=== PATIENT | male | born 1945 | race Caucasian/White ===

== ENCOUNTER 2016-11-07 08:28 | Observation (INO) | payer OTHER ==
[~2016-11-07] VITALS: Ht 188 cm; Wt 97.1 kg
[2016-11-07] VITALS (9 sets, daily range): BP systolic 160–203; BP diastolic 87–114; PULSE 89–108; RESP 15–19; O2SAT 94–99
[~2016-11-07 08:28] MED LIST: ALLO300T2 PO; AMLO10TA3 PO; ASPI-973 PO; CARV12.52 PO; CETI10CA PO; CHOL3000 PO; CYAN1TAB42 PO; FURO-128 PO; GABA-502 PO; INSU100C8 SUBQ; INSU100V7 SUBQ; IRON18TA PO; LEVO75TA4 PO; LIP40 PO; LOSA25TA21 PO; MECL-114 PO; MULT-983 PO
--- NOTE | 2016-11-07 08:34 | ED.REPORT ---
HPI-Neck Pain Free Text HPI Notes Nov 07, 2016 ED Provider: Nader Gordon MD History of Present Illness: I.Predictus listing says head trauma. NO HEAD TRAUMA. 70 year old male anticoagulated on Warfarin with a history of type II diabetes presents to the ER via EMS complaining of neck pain onset two days ago. Two days ago he was unloading bags of soil from his truck when he felt some discomfort behind his right scapula, then went inside to relax and treated symptoms with one Vicodin which provided moderated relief. By midnight last night the pain had worsened and he took another dose of Vicodin. When he awakened to use the restroom at 02:00 this morning he was unable to get out of his bed until 06:00 due to neck pain rated 10/10 in severity at worst. Pain is exacerbated by movement. Patient denies any recent fall or trauma, fever, and any new numbness/weakness in his extremities. He is prescribed Vicodin but states that he hasn't used it for 7-8 months. He reports a history of similar 5 or 6 years ago, onset while sitting on his couch. At that time he experienced associated numbness/weakness of extremities, and was taken to the ER and subsequently hospitalized for 30 days. During his stay he had a head CT that revealed "white spots on his brain". Since then he has experienced intermittent mild neck pain. Patient endorses history of multiple concussions secondary to injuries acquired during his service in the [place] war. upon review of patient records I found that patient was admitted March 01-2012 for neck pain and malignant hypertension and received a full work-up. Nursing Notes Stated Complaint: NECK PAIN Nursing Notes Reviewed: Yes ([employer] not reconciled - patient on warfarin) Allergies: Coded Allergies: Pentazocine Lactate (Verified Allergy, Unknown, 09/09/15) vancomycin (Unverified Allergy, Unknown, Hives, 09/09/15) rash and blisters hydrocortisone (Verified Adverse Reaction, Unknown, leg swelling, 11/07/16) Scheduled Allopurinol (Allopurinol) 300 Mg Tablet 300 MG PO DAILY Amlodipine (Amlodipine) 10 Mg Tablet 10 MG PO DAILY Aspirin (Aspirin) 81 Mg Tablet 162 MG PO DAILY Atorvastatin (Lipitor) 40 Mg Tablet 40 MG PO DAILY Carvedilol (Carvedilol) 12.5 Mg Tablet 12.5 MG PO BID Cetirizine HCl (Zyrtec) 10 Mg Capsule 10 MG PO HS Cholecalciferol (Vitamin D3) (Vitamin D3) 3,000 Unit Tablet 3,000 UNIT PO DAILY Cyanocobalamin/Folic Acid (Vitamin M13-Unclp Acid Tablet) 1 Each Tablet 1 EACH PO DAILY Furosemide (Lasix) 40 Mg Tablet 20-40 MG PO DAILY Gabapentin (Gabapentin) 300 Mg Capsule 300 MG PO QAM Gabapentin (Gabapentin) 300 Mg Capsule 300 MG PO QPM Insulin Aspart (NovoLOG U100 Insulin Vial) 100 U/Ml U 2-10 UNIT SUBQ TID Insulin Glargine (Lantus U100 Insulin Vial) 100 Unit/Ml Vial 30 UNIT SUBQ QAM Iron (Iron) 18 Mg Tablet 2 TAB PO DAILY Levothyroxine (Levothyroxine) 75 Mcg Tablet 75 MCG PO DAILY Losartan Potassium (Losartan Potassium) 25 Mg Tablet 25 MG PO DAILY Multivitamin/Iron/Folic Acid (Century Tablet) 1 Each Tablet 1 EACH PO DAILY Scheduled PRN Meclizine (Bonine) 25 Mg Tab.chew 25 MG PO Q8H PRN PRN For Dizziness General Time Seen by Provider: 08:32 Chief Complaint Neck pain Hx Obtained From: Patient Arrived By: Ambulance Sudden in Onset?: No Onset Occurred: 2 days ago Symptom Duration: Since onset Progression Since Onset: Waxes and wanes Location: : Lateral neck left: Lateral neck right: Posterior neck Quality: Painful Severity: Current: Moderate Severity: Maximum: Pain level 10 out of 10 Associated with: Denies: Decreased sensation, Weakness Pertinent Negative: Pt denies other symptoms Exacerbated by: Flexion, Extension, Turn to right, Turn to left Pertinent Negative: Relieved by nothing Similar Sx Previous: Yes Past Medical History Past Medical History Notes: PCP Dr. Kaplan Past Medical History Type II DM HTN History of foot ulceration followed by wound care center Patient is an anticoagulant warfarin-he thinks for atrial fibrillation Past Surgical History right toe amputation Cardiac catheterization with angioplasty and stent placement Smoking History Never Smoker Ambulatory Status Independent Review of Systems Constitutional: Denies: Fever Respiratory: Denies: Shortness of breath Cardiovascular: Denies: Chest pain GI: Denies: Nausea, Vomiting Musculoskeletal: Reports: Back pain, Neck pain, Denies: Extremity pain, Extremity swelling, Joint pain, Lumbar pain, Thoracic pain Neurologic: Denies: Focal weakness, Headache, Numbness, Syncope, Weakness Complete sys rev & neg: except as marked. Physical Exam Initial Vital Signs Vital Signs (First) Date Time Temp Pulse Resp B/P Pulse Ox O2 Delivery O2 Flow Rate FiO2 11/07/16 08:34 37.1 108 18 203/90 96 Room Air Initial VS: Reviewed, Unavailable (none on chart, ordered) Head / Eyes: Atraumatic, Normocephalic Respiratory: Breath sounds normal, Clear to auscultation, No respiratory distress Cardiovascular: Regular rate & rhythm, Heart sounds normal, Intact distal pulses Abdomen / GI: Soft, Non-tender, No guarding, No rebound, No distention Extremities: Vascular intact, Neuro intact, No swelling, No tenderness Skin: Warm, Dry, No cyanosis Psychiatric: Mood/affect normal, Behavior normal, Normal thought content General/Constitutional: Awake, Alert, Well developed, Well nourished Neck: No swelling Neck / Muscle Tenderness: Positive: Midline tenderness high (mild), Midline tenderness low (mild), Midline tenderness mid (mild) Wearing foam soft collar. Discomfort with intermittent movement of neck Neurologic: Oriented X3, Speech NL, No motor deficits, No sensory deficits, CN II - XII intact, Reflexes equal bilat Wrist / Hand: Full range of motion, Neurologic intact, Vascular intact Chronic wasting left thenar eminence. Interpretation & Diagnostics PROCEDURE: MRI CERVICAL SPINE WITHOUT CONTRAST ([id number]) INDICATIONS: Severe neck pain,craniocervical region TECHNIQUE: Noncontrast sagittal T1 spin echo and T2 fast spin echo, sagittal STIR, foraminal oblique sagittal T2 fast spin echo, and axial gradient echo or T2 fast spin echo through the cervical spine. COMPARISON: MRI cervical spine dated 03/02/13. FINDINGS: Image quality: Excellent. Alignment and Curvature: There is dextrocurvature of the cervical spine and levocurvature of the upper thoracic spine. Bone Marrow: Marrow demonstrates normal overall signal. Spinal Cord: Visualized spinal cord has normal size and signal. No cerebellar tonsillar herniation. Paraspinous Soft Tissues: No paravertebral masses. Prevertebral soft tissues are normal in thickness. C2-C3: No canal stenosis. Bilateral facet disease. Mild left and no definite right foraminal stenosis. No interval change C3-C4: Bilateral uncovertebral arthropathy and intervening posterior disc osteophyte complex, which is asymmetric, left greater than right. Bilateral facet disease. Moderate, predominantly left-sided canal stenosis with effacement of the anterior and posterior thecal sac. Severe left and moderate to severe right foraminal stenoses. Overall, no interval change C4-C5: Bilateral uncovertebral arthropathy and intervening posterior disc osteophyte complex, and bilateral facet disease. Mild to moderate predominantly left-sided canal narrowing. Severe left and moderate to severe right foraminal stenoses. Overall, no interval change C5-C6: Bilateral uncovertebral arthropathy and intervening posterior disc osteophyte complex, and bilateral facet disease. Mild to moderate canal narrowing. Severe bilateral foraminal stenoses. No interval change C6-C7: Bilateral uncovertebral arthropathy and intervening posterior disc osteophyte complex, and bilateral facet disease. Mild canal narrowing. Moderate to severe bilateral foraminal stenoses. Grossly unchanged appearance C7-T1: No definite canal stenosis. Bilateral facet disease. Minimal bilateral foraminal narrowing. No interval change IMPRESSION: Lateral curvature of the spine as detailed above. Diffuse disc degeneration and facet arthropathy with moderate (predominantly left-sided) C3-C4 canal stenosis. Multiple, bilateral severe foraminal stenoses as detailed above by spinal level. Overall, no significant interval change since 03/02/13. Dictated by: Jorje Rainey M.D. on 11/07/2016 at 10:57 Approved by: Jorje Rainey M.D. on 11/07/2016 at 11:04 Lab Results Interpretation Result Diagram: 11/07/16 0849 11/07/16 0915 Test 11/07/16 08:49 11/07/16 09:15 White Blood Count 12.5th/mm3 (3.8-10.1) Red Blood Count 4.78mil/mm3 (4.40-5.80) Hemoglobin 14.5g/dL (13.8-17.2) Hematocrit 44.0% (41.0-50.0) Mean Corpuscular Volume 92.1fL (81-100) Mean Corpuscular Hemoglobin 30.3pg (27.0-35.0) Mean Corpuscular Hemoglobin Concent 33.0% (32.0-37.0) Red Cell Distribution Width 13.8% (12.3-15.4) Platelet Count 199bil/L (150-400) Neutrophils (%) (Auto) 79.3% (40-74) Lymphocytes (%) (Auto) 11.1% (14-46) Monocytes (%) (Auto) 8.2% (4-12) Eosinophils (%) (Auto) 1.0% (0-5) Basophils (%) (Auto) 0.2% (0-3) Prothrombin Time 23.9sec (8.1-12.5) Prothromb Time International Ratio 2.20ratio Sodium Level 140mEq/L (134-144) Potassium Level 4.4mEq/L (3.5-5.2) Chloride Level 101mEq/L (97-108) Carbon Dioxide Level 23mmol/L (18-29) Blood Urea Nitrogen 28mg/dL (8-27) Creatinine 1.28mg/dL (0.76-1.27) Estimat Glomerular Filtration Rate 59mL/min (>59) Glucose Level 284mg/dL (60-99) Calcium Level 9.7mg/dL (8.5-10.1) Total Bilirubin 0.8mg/dL (0.0-1.2) Aspartate Amino Transf (AST/SGOT) 21U/L (0-50) Alanine Aminotransferase (ALT/SGPT) 11U/L (0-44) Alkaline Phosphatase 95U/L (25-160) Total Protein 7.3g/dL (6.4-8.4) Albumin 3.7g/dL (3.4-5.0) Re-Eval/Medical Decision Med Decision/Clinical Course This is a 70-year-old male diabetic presents with onset of neck pain that is severe. The patient reports no trauma, no mechanism of injury, no fever-or infectious symptoms, he lives alone, is anticoagulated, it was concerning his routine activities such as involved some gardening, yesterday started of some neck pain, and progress to the point it is so severe he could not move, he could not get up and ultimately had a fight able to call EMS for transport. The patient was sees had similar symptoms like this in the past, he is even admitted acting 2012 for similar presentations of severe pain remain hospitalized for several days, apart because it was cognitive first impression of new hypertension and was tried to be sorted out. Did not have any other pathology, none was identified to link the high blood pressure and the neck pain , he had an MRI at that time with cervical stenosis noted. He reports he has intermittent episodes of neck pain for she has had to wear soft collar which he is now currently wearing, and has occasionally taken pain medicine such as hydrocodone. But he reports he has not worn a soft collar in about a year, and that he has not had any hydrocodone pain medicine for about 7 months, but he took a dose yesterday, and then last night he took 3 attempt control of pain, but made no effect. 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 Exam the patient reports is currently comfortable and declines pain medicine-as long as he does not move. The pain is well localized to the neck, severe pain in the cervical area, but does not describe any radicular symptoms in the arms or legs with movement, but when he does move severely painful and he winces and grimaces of discomfort, since he stops moving he is better. Given the patient's anticoagulate did, given the severity of the pain, given the history of his imaging of the time demonstrating prior severe stenosis, repeat imaging with MRI was obtained today. To was notable for stenosis, but no interval change between the images was identified, no acute surgical emergency or hemorrhage or infection or fracture dislocation or nerve impingement was identified. Work is normal, patient's therapeutic. He is again hypertensive but had not yet had his routine blood pressure medicines which are being administered. The patient's comfortable rest, but he indicates he is apparently not comfortable going home, he lives by himself, he could not get up or move, starting weaken from the diabetes and a previous neurologic upper extremity weakness, disease requesting admission. Working to set up an observation admission, and requested PT evaluation because it appears clinically be a reasonable request.The Plan is admission for pain control supportive measures and physical therapy. Source of Hx: Old records, EMS Re-Evaluation/Progress : Time of Eval: 11:52 Re-Evaluation/Progress Note: Discussed lab and imaging results and need for admission pending physical therapy evaluation. Patient is amenable to the plan. All other questions addressed. Consultation : Referral / Consult Name: Vern Garces MD Consulted With: Hospitalist Call Returned at: 12:19 [place] Technician: Agrees with eval, Agrees with plan, Accepts admit Differential Diagnosis: Positive: Cervical myofascial pain, Degenerative disc disease, Negative: Abrasion, Bite, Burn, Epidural abscess, Epidural bleed, Fracture, c -spine, Fracture, joão cardiographer's, Fracture, flex teardrop, Fracture, simple wedge, Fx vertebral - unstable, Fx vertical comp injury, Gun shot wound neck, Laceration, Lemierre's disease, Meningitis, Peritonsillar abscess, Retropharyngeal abscess, Stab wound neck, Subarachnoid hemorrhage, Thoracic outlet syndrome Counseled Regarding: Diagnosis, Lab results, Need for admission Safety Concerns: Unable to care for self Discharge & Departure Primary Impression: Intractable pain Additional Impressions: Neck pain Anticoagulated on warfarin At risk for falling Hypertension Hypertension type: essential hypertension Qualified Code: I10 - Essential ( primary) hypertension Disposition: ADMITTED TO HOSPITAL Discharge Condition All VS Reviewed: Yes Condition: Stable Referrals: Karlee Kaplan MD (PCP) ED Scribe Statement Portions of this note were transcribed by Ben Epps. I, Dr. Gordon, personally performed the history, physical exam and medical decision-making; I reviewed and confirmed the accuracy of the information in the transcribed note. Signed by: Isabelle Walsh, 11/07/2016 and 12:21 copies to: Karlee Kaplan MD, Matthew F MD Nov 07, 2016 08:34 BEN EPPS Nov 07, 2016 08:43
[2016-11-07] MEDS ORDERED: Ondansetron 2 mg/mL 2 mL Inj IVPUSH PRN ×2 (09:15→12:20)
[2016-11-07] MEDS ORDERED: HYDROmorphone 0.5 mg/0.5 mL iSecure Syringe IVPUSH PRN (09:15)
[2016-11-07 09:32] LABS: BASOPHILS % (AUTO) 0.2 % (0-3); MONOCYTES % (AUTO) 8.2 % (4-12); Mean Corpuscular Hemoglobin 30.3 pg (27.0-35.0); Mean Corpuscular Volume 92.1 fL (81-100); NEUTROPHILS % (AUTO) 79.3 % (40-74); Platelet Count 199 bil/L (150-400)
[2016-11-07 10:08] LABS: INR 2.2 ratio
--- NOTE | 2016-11-07 11:09 | DRSVH ---
PROCEDURE: MRI CERVICAL SPINE WITHOUT CONTRAST ([id number]) INDICATIONS: Severe neck pain,craniocervical region TECHNIQUE: Noncontrast sagittal T1 spin echo and T2 fast spin echo, sagittal STIR, foraminal oblique sagittal T2 fast spin echo, and axial gradient echo or T2 fast spin echo through the cervical spine. COMPARISON: MRI cervical spine dated 03/02/13. FINDINGS: Image quality: Excellent. Alignment and Curvature: There is dextrocurvature of the cervical spine and levocurvature of the uppe r thoracic spine. Bone Marrow: Marrow demonstrates normal overall signal. Spinal Cord: Visualized spinal cord has normal size and signal. No cerebellar tonsillar herniation. Paraspinous Soft Tissues: No paravertebral masses. Prevertebral soft tissues are normal in thicknes s. C2-C3: No canal stenosis. Bilateral facet disease. Mild left and no definite right foraminal stenosi s. No interval change C3-C4: Bilateral uncovertebral arthropathy and intervening posterior disc osteophyte complex, which is asymmetric, left greater than right. Bilateral facet disease. Moderate, predominantly left-sided c anal stenosis with effacement of the anterior and posterior thecal sac. Severe left and moderate to s evere right foraminal stenoses. Overall, no interval change C4-C5: Bilateral uncovertebral arthropathy and intervening posterior disc osteophyte complex, and bi lateral facet disease. Mild to moderate predominantly left-sided canal narrowing. Severe left and mod erate to severe right foraminal stenoses. Overall, no interval change C5-C6: Bilateral uncovertebral arthropathy and intervening posterior disc osteophyte complex, and bi lateral facet disease. Mild to moderate canal narrowing. Severe bilateral foraminal stenoses. No inte rval change C6-C7: Bilateral uncovertebral arthropathy and intervening posterior disc osteophyte complex, and bi lateral facet disease. Mild canal narrowing. Moderate to severe bilateral foraminal stenoses. Grossly unchanged appearance C7-T1: No definite canal stenosis. Bilateral facet disease. Minimal bilateral foraminal narrowing. No interval change IMPRESSION: Lateral curvature of the spine as detailed above. Diffuse disc degeneration and facet arthropathy with moderate (predominantly left-sided) C3-C4 canal stenosis. Multiple, bilateral severe foraminal stenoses as detailed above by spinal level. Overall, no significant interval change since 03/02/13. Dictated by: Jorje Rainey M.D. on 11/07/2016 at 10:57 Approved by: Jorje Rainey M.D. on 11/07/2016 at 11:04
[2016-11-07] MEDS ORDERED: Alum-Mag Hydrox-Simeth 30 mL Suspension PO PRN (12:20)
[2016-11-07] MEDS ORDERED: HYDROcodone-APAP 10-325 mg PO PRN (12:20)
[2016-11-07] MEDS ORDERED: Polyethylene Glycol (PEG) 17 Gm Powder PO PRN (12:20)
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
[2016-11-07] MEDS ORDERED: Glucose 40% Oral Gel 15 Gm Tube PO PRN (12:40)
[2016-11-07] MEDS ORDERED: WARF2.5T82 PO (12:46)
[2016-11-07] MEDS ORDERED: INSU100V7 SUBQ (12:46)
[2016-11-07] MEDS ORDERED: IRON1CAP3 PO (12:46)
[2016-11-07] MEDS ORDERED: DICL100G8 TOPICAL (12:46)
[2016-11-07] MEDS ORDERED: DULA0.75 SQ (12:46)
[2016-11-07] MEDS ORDERED: CYAN100017 SL (12:46)
[2016-11-07] MEDS ORDERED: LIRA0.6P SUBQ (13:35)
--- NOTE | 2016-11-07 14:30 | PCM.PHAPRO ---
Progress Warfarin Management by Pharmacy: -Indication: afib -Home Dose: warfarin 5mg daily -Concurrent Anticoagulation: none -Inr on admit: 2.2 -Drug Interactions: none noted -H/H: 14.5/44 -Platelets: 199 -Plan: will continue with home dose of warfarin 5mg this evening if pt has not had a dose today (rn is checking currently) serial inr's have been ordered. Rashida Cruz [facility] Nov 07, 2016 14:30
[2016-11-07] MEDS: 0.9% Sodium Chloride 1,000 ML IV SCH (17:30)
[2016-11-07] MEDS: Insulin LISPRO 300 Unit/3 mL Inj SUBQ SCH ×2 (17:30→21:41)
[2016-11-07] MEDS: Insulin GLARgine 100 Unit/mL Syringe SUBQ SCH (21:41)
[2016-11-08] VITALS (10 sets, daily range): BP systolic 138–167; BP diastolic 74–92; PULSE 62–101; RESP 16–20; O2SAT 95–97
[2016-11-08] MEDS: 0.9% Sodium Chloride 1,000 ML IV SCH ×3 (03:23→22:19)
[2016-11-08 06:29] LABS: INR 1.95 ratio
--- NOTE | 2016-11-08 07:01 | PCM.PHAPRO ---
Progress Warfarin Management by Pharmacy: -Indication: afib -Home Dose: warfarin 5mg daily -Concurrent Anticoagulation: none -Inr on admit: 2.2, today 1.95 -Drug Interactions: none noted -Plan: will continue with home dose of warfarin 5mg Rashida Cruz [facility] Nov 08, 2016 07:01
[2016-11-08] MEDS: Insulin LISPRO 300 Unit/3 mL Inj SUBQ SCH ×4 (08:00→22:08)
[2016-11-08] MEDS: LIRAGLUTIDE 1.2 MG SUBQ SCH (08:30)
[2016-11-08] MEDS: Insulin GLARgine 100 Unit/mL Syringe SUBQ SCH ×2 (08:51→22:06)
--- NOTE | 2016-11-08 11:31 | PCM.PNMED ---
Subjective Date of Service Nov 08, 2016 Subjective Patient seen and examined. Had difficulty sleeping last night. Vicodin did not seem to work for pain. Reports normal bowel and urinary functions Exam Vital Signs Vital Sign - Last Date Time Temp Pulse Resp B/P Pulse Ox O2 Delivery O2 Flow Rate FiO2 11/08/16 08:49 80 11/08/16 05:21 36.6 16 153/79 96 Room Air Intake and Output 11/07/16 11/07/16 11/08/16 Cumulative From/Thru 15:00 23:00 07:00 11/07/16 08:34 - 11/08/16 06:20 Intake Total 360 ml 1672 ml 2032 ml Output Total 0 ml 900 ml 900 ml Balance 360 ml 772 ml 1132 ml Intake Oral 360 ml 472 ml 832 ml IV Total 1200 ml 1200 ml Output Urine Total 0 ml 900 ml 900 ml Exam General: Alert, Oriented X3, Cooperative, No acute Distress Eyes: PERRLA, Scleral Anicteric Mouth: Mouth Normal, Mucous Membranes Moist/[place] Neck: Supple, no Thyromegaly, trachea central. Limited mobility due to pain, soft collar in place Chest & Lungs: Clear to auscultation & percussion, No adventitious breath sounds, no crackles, no wheeze Cardiovascular: Normal S1, Normal S2, No Murmurs/Rubs/Gallops, Regular Rate/ Rhythm, (No JVD, no peripheral edema) Pulses: Radial (present and equal), Dorsalis Pedi (present and equal) Abdomen: Soft, Non-tender, Non-distended, Normoactive bowel tones. Musculoskeletal: Unremarkable. Normal range of motion, no swollen or erythematous joints. Dressing over left foot (did not open) Extremities: No edema, no cyanosis, no clubbing. Skin: No rashes. Warm and dry, no erythematous areas Lymphatic: Lymph nodes Cervical and Axillary not palpable. Neurological: Mental Status: Alert and Oriented without any slurred speech. Short term memory at baseline Cranial nerves: PERRL. Extraocular movements are intact with no nystagmus. Visual [place] are full to direct confrontation. The face is symmetric, tongue midline Motor: Normal tone. She is able to hold both arms and legs up off the bed. Good immigration lawyer bilaterally. chronic atropy of left arm Sensation: chronic DM glove and stocking neuropathy of both upper arms and feet bilaterally Coordination: Cerebellar testing intact Reflexes: 2 throughout, toes withdraw Gait: not tested due to neck pain IVs and Medications Medications Reviewed: Medications were reviewed in detail Lab and Diagnostics Laboratory Tests Test 11/07/16 09:15 11/08/16 05:25 Prothrombin Time 23.9sec (8.1-12.5) 21.2sec (8.1-12.5) Prothromb Time International Ratio 2.20ratio 1.95ratio Sodium Level 140mEq/L (134-144) Potassium Level 4.4mEq/L (3.5-5.2) Chloride Level 101mEq/L (97-108) Carbon Dioxide Level 23mmol/L (18-29) Blood Urea Nitrogen 28mg/dL (8-27) Creatinine 1.28mg/dL (0.76-1.27) Estimat Glomerular Filtration Rate 59mL/min (>59) Glucose Level 284mg/dL (60-99) Calcium Level 9.7mg/dL (8.5-10.1) Total Bilirubin 0.8mg/dL (0.0-1.2) Aspartate Amino Transf (AST/SGOT) 21U/L (0-50) Alanine Aminotransferase (ALT/SGPT) 11U/L (0-44) Alkaline Phosphatase 95U/L (25-160) Total Protein 7.3g/dL (6.4-8.4) Albumin 3.7g/dL (3.4-5.0) Result Diagram: 11/07/16 0849 11/07/16 0915 X-Rays, CTs and MRIs MRI CERVICAL SPINE WITHOUT CONTRAST 11/07 IMPRESSION: Lateral curvature of the spine as detailed above. Diffuse disc degeneration and facet arthropathy with moderate (predominantly left-sided) C3-C4 canal stenosis. Multiple, bilateral severe foraminal stenoses as detailed above by spinal level. Overall, no significant interval change since 03/02/13. Dictated by: Jorje Rainey M.D. on 11/07/2016 at 10:57 Approved by: Jorje Rainey M.D. on 11/07/2016 at 11:04 Assessment & Plan Mark Carter 70 year old male with Atrial Fibrillation on Warfarin, Type II diabetes presents to [facility] emergency department via EMS complaining of neck pain. 1. Acute on Chronic neck pain due to severe cervical spinal stenosis.. Present on admission. Persistent Etiology is unclear but imaging showed chronic changes. Suspect muscular issue with possible spasm. - No surgical intervention is needed, Neurological exam intact - Physical therapy assessment ongoing - pain control, increased Vicodin 2 tab q 4 hours and Gabapentin 600 mg daily - consultation with Dr Roberson for OMT intervention - consider adding Baclofen if no improvement today 2 Diabetic neuropathic ulceration, left foot. Present on admission. healing No signs of cellulitis - wound care following, the changed the dressing yesterday - continue to follow up with Dr Key at wound care clinic 3 Hypertension Uncontrolled likely due to pain - continue Cozaar 25 mg daily, Coreg 12.5 mg daily 4 Type 2 Diabetes with peripheral neuropathy, diabetic foot ulcer, Nephropathy and no proliferative retinopathy Uncontrolled with A1c 9.7 - Hypoglycemia this morning 65 @ 8 AM - medium correction Lispro algorithm - checking A1c 6.1, reflecting good control - continuing Lantus outpatient dosing - patient recently started on Victoza sq and will be continued 5 Paroxysmal Atrial fibrillation on Coumadin Presumed stable - monitor on telemetry - continue rate control with Carvedilol - Coumadin managed by Pharmacy 6 Chronic Kidney disease with proteinuria Baseline Cr 1.3-1.7. Due to Hypertensive nephrosclerosis and Diabetic nephropathy - avoid nephrotoxic insults - avoid NSAIDs - monitor urine output 7 Hyperlipidemia - continue Atorvastatin 40 mg daily 8 Acquired hypothyroidism - continue Synthroid 75 mcg daily - Acetaminophen as needed for mild pain/fever/headache - Bowel regimen as needed - Antiemetic as needed Patient is admitted under observation status with expected length of stay less than 2 midnights due to severity of presenting symptoms, risk of adverse event, and complexity of treatment plan. Anticipate discharge home tomorrow . Resuscitation Status: CPR: Attempt Resuscitation Vern Garces MD Nov 08, 2016 09:07
--- NOTE | 2016-11-08 11:39 | PCM.ADCARE ---
Advance Care Planning Note Purpose of Encounter: Active Diagnoses: Chronic kidney disease Diabetes with peripheral neuropathy, diabetic foot ulcer, Nephropathy and no proliferative retinopathy Dementia with short term memory These active diagnoses are sufficient risk that focused discussion on advance car planning is indicated in order to allow the patient to thoughtfully consider personal goals of care and if situations arise that prevent the ability to personally give input to insure appropriate representation of their personal desires through documentation or informed surrogate decision makers Parties in Attendance: Patient and me Decisional Capacity: Good Goals of Care Determinations: I reviewed his chronic conditions mentioned above and his desires for ongoing aggressive care, including potential intubation and mechanical ventilation as well as CPR. Also discussed who would speak on his behalf should he be unable to do so, she states her son Carmine to be his DPOA and proxy He understands he has no good treatment options available but he would wanna to live a comfortable life CODE STATUS: Full Code but does not want to be on prolonged life support Time Spent Adv.Care Planning: Total time spent [id number] in education and discussion directly related to Advance Care Plannin minutes Vern Garces MD Nov 08, 2016 11:39
--- NOTE | 2016-11-08 11:49 | PCM.PROC ---
Procedure Note Date of Service: Nov 08, 2016 Procedure: Procedure: Osteopathic Manipulative Treatment Subjective: Patient is a 70-year-old gentleman who presents with neck pain and stiffness secondary to raking leaves. The patient states that he can only move his neck 10 to the left and right and is unable to lie flat. The patient states that moving his neck makes the pain worse and feels comfort with wearing his neck brace. The patient currently rates his pain had 10 out of 10 and is currently asking for pain medication at this time, but is willing to hold off until after treatment. Risks and benefits of OMT were explained to the patient and verbal consent obtained. Osteopathic Structural Exam: Head: OAESrRl, right sidebending of the SBS Cervicals:C3-7 ESrRr Thoracics: T1-3 NSrRl Ribs: inhaled first rib on the R Pelvis: anterior R innominate Sacrum: SIJ restriction R> L Upper extremities: R>L clavicle restriction, upper trapezius hypertonicity on the right greater than left, levator scapula hypertonicity on the right, right SCM hypertonicity greater than left, Patient responded well to treatment. Patient stated that his neck pain had decreased and no longer needed any pain medication". Patient was able to lie flat on the bed and did not need any pillow support which was needed prior. The patient also had increased his range of motion to the neck with and able to now rotate 30-45 to the left and right. The patient has been instructed not to use his cervical neck collar as this is impeding his range of motion and causing his muscles to stiffen up. Osteopathic treatment modalities used: Myofascial release, Cranial, BLT, and soft tissue technique Stephany Roberson DO Nov 08, 2016 11:49
[2016-11-08] MEDS: HYDROcodone-APAP 10-325 mg PO PRN ×3 (13:25→22:15)
[2016-11-09] VITALS (8 sets, daily range): BP systolic 148–196; BP diastolic 79–95; PULSE 67–79; RESP 16–20; O2SAT 95–98
[2016-11-09 05:59] LABS: INR 2.51 ratio
--- NOTE | 2016-11-09 06:43 | PCM.PHAPRO ---
Progress Warfarin Management by Pharmacy: -Indication: afib -Home Dose: warfarin 5mg daily -Concurrent Anticoagulation: none -Inr Goal: 2-3 -Coagulation Trends: Nov 08-Oct 10-November 2.2 1.95 2.51 -0.25 0.56 5MG 5MG 3MG -Plan: will give a reduced dose this evening of warfarin 3mg due to inr increase Rashida Cruz [facility] November 09, 2016 06:43
[2016-11-09] MEDS ORDERED: HYDR-3740 PO (07:45)
[2016-11-09] MEDS: Insulin LISPRO 300 Unit/3 mL Inj SUBQ SCH ×4 (08:00→21:51)
[2016-11-09] MEDS: LIRAGLUTIDE 1.2 MG SUBQ SCH (08:30)
[2016-11-09] MEDS: Insulin GLARgine 100 Unit/mL Syringe SUBQ SCH ×2 (08:59→21:51)
--- NOTE | 2016-11-09 09:51 | PCM.DIMED ---
Discharge Instructions Date of Service November 09, 2016 Dates of Hospitalization Nov 07, 2016 at 12:55 Discharge Diagnosis Discharge Diagnosis Neck pain secondary to C3-C4 stenosis, DM2, HTN, Afib Camryn Kaufman DO November 09, 2016 09:51
[2016-11-09] MEDS: HYDROcodone-APAP 10-325 mg PO PRN (16:37)
--- NOTE | 2016-11-09 21:55 | PCM.PNMED ---
Subjective Date of Service November 09, 2016 Subjective Patient is seen and examined. He states that he had good relief with pain in his trapezius and clavicle area with Dr. Roberson treatment. However he says his neck is still sore and he is unable to move his neck well. He feels that he has one more day in the hospital he will be ready to go home. States that he only takes pain medication as needed, willing to try a medication to relax muscles Exam Vital Signs Vital Sign - Last Date Time Temp Pulse Resp B/P Pulse Ox O2 Delivery O2 Flow Rate FiO2 11/09/16 09:25 71 11/09/16 09:14 36.9 20 196/95 97 Room Air Intake and Output 11/08/16 11/08/16 11/09/16 Cumulative From/Thru 15:00 23:00 07:00 11/07/16 08:34 - 11/09/16 06:48 Intake Total 1188 ml 1741 ml 4961 ml Output Total 1600 ml 2500 ml Balance 1188 ml 141 ml 2461 ml Intake Oral 586 ml 1418 ml IV Total 1188 ml 1155 ml 3543 ml Output Urine Total 1600 ml 2500 ml Exam Gen.: Laying in bed without moving neck HEENT: Laying in bed on his back without moving his neck MSK: Neck range of motion from 5 in each direction except forward flexion is 10 . Neck muscle tension and tenderness noted. Heart: Irregular, no S3-S4 murmurs Lungs: Clear to auscultation, no crackles or wheezes Abdomen: Nondistended Neck trachea appears central no thyromegaly Psych: Negative for anxiety Neuro: No focal deficits Skin: Diabetic foot ulcer over his left sole below the first MTP, 3 cm in diameter IVs and Medications IV Fluids None: Discontinue today Medications Reviewed: Medications were reviewed in detail Lab and Diagnostics Laboratory Tests Test 11/09/16 04:47 Prothrombin Time 27.4sec (8.1-12.5) Prothromb Time International Ratio 2.51ratio Result Diagram: 11/07/16 0849 11/07/16 0915 X-Rays, CTs and MRIs MRI CERVICAL SPINE WITHOUT CONTRAST 11/07 IMPRESSION: Lateral curvature of the spine as detailed above. Diffuse disc degeneration and facet arthropathy with moderate (predominantly left-sided) C3-C4 canal stenosis. Multiple, bilateral severe foraminal stenoses as detailed above by spinal level. Overall, no significant interval change since 03/02/13. Dictated by: Jorje Rainey M.D. on 11/07/2016 at 10:57 Approved by: Jorje Rainey M.D. on 11/07/2016 at 11:04 Assessment & Plan Mark Carter 70 year old male with Atrial Fibrillation on Warfarin, Type II diabetes presents to [facility] emergency department via EMS complaining of neck pain. 1. Acute on Chronic neck pain due to severe cervical spinal stenosis.. Present on admission. Persistent Etiology is unclear but imaging showed chronic changes. Suspect muscular issue with possible spasm. - No surgical intervention is needed, Neurological exam intact - Physical therapy assessment ongoing - pain control, increased Vicodin 2 tab q 4 hours and Gabapentin 600 mg daily: Decreased Vicodin 1 tablet every 4 hours as we are adding Robaxin - consultation with Dr Roberson for OMT intervention: Soft tissue and muscle energy treatment are done 11/[address] Kaufman - Added Robaxin 750 4 times a day by mouth as he complains of muscle spasm and muscle energy treatment helped --asked PT/OT to see the patient twice today to improve ROM -- We will request homecare health for patient 2 Diabetic neuropathic ulceration, left foot. Present on admission. healing No signs of cellulitis - wound care following, the changed the dressing yesterday - continue to follow up with Dr Key at wound care clinic -- Patient has a appointment with wound care on November 3 Hypertension Uncontrolled likely due to pain - continue Cozaar 25 mg daily, Coreg 12.5 mg daily -- Increased his Cozaar to 50 mg daily on 11/09 due to poor control 4 Type 2 Diabetes with peripheral neuropathy, diabetic foot ulcer, Nephropathy and no proliferative retinopathy Uncontrolled with A1c 9.7 - Hypoglycemia this morning 65 @ 8 AM - medium correction Lispro algorithm - checking A1c 6.1, reflecting good control - continuing Lantus outpatient dosing - patient recently started on Victoza sq and will be continued 5 Paroxysmal Atrial fibrillation on Coumadin Presumed stable - monitor on telemetry - continue rate control with Carvedilol - Coumadin managed by Pharmacy 6 Chronic Kidney disease with proteinuria Baseline Cr 1.3-1.7. Due to Hypertensive nephrosclerosis and Diabetic nephropathy - avoid nephrotoxic insults - avoid NSAIDs - monitor urine output 7 Hyperlipidemia - continue Atorvastatin 40 mg daily 8 Acquired hypothyroidism - continue Synthroid 75 mcg daily - Acetaminophen as needed for mild pain/fever/headache - Bowel regimen as needed - Antiemetic as needed Patient is observation status, his insurance will cover> 2 nights of observation stay per UR Anticipate discharge home tomorrow . Pain Evaluation: Adequate Pain Control Resuscitation Status: CPR: Attempt Resuscitation Camryn Kaufman DO November 09, 2016 11:28
[2016-11-10] VITALS: BP 164/76; PULSE 71; RESP 16; O2SAT 95
[2016-11-10] MEDS ORDERED: CYCL10TA9 PO ×2 (05:57→10:39)
[2016-11-10 06:24] LABS: INR 2.33 ratio
--- NOTE | 2016-11-10 07:02 | PCM.PHAPRO ---
Progress Warfarin Management: -Indication: afib -Home Dose: warfarin 5mg daily -Concurrent Anticoagulation: none -Inr Goal: 2-3 -Coagulation Trends: Nov 08-Oct 10-November 10-November 2.2 1.95 2.51 2.33 -0.25 0.56 -0.18 5MG 5MG 3MG 5MG -Plan: inr remains therapeutic and will continue with home dose of warfarin 5mg Rashida Cruz [facility] November 10, 2016 07:02
[2016-11-10] MEDS: Insulin LISPRO 300 Unit/3 mL Inj SUBQ SCH ×2 (08:00→12:00)
[2016-11-10 08:04] VITALS: BP 181/98; PULSE 69; RESP 16; O2SAT 97
[2016-11-10] MEDS: Insulin GLARgine 100 Unit/mL Syringe SUBQ SCH (08:28)
[2016-11-10] MEDS: LIRAGLUTIDE 1.2 MG SUBQ SCH (08:29)
[2016-11-10 09:21] VITALS: PULSE 67
[2016-11-10] MEDS ORDERED: SPIR25TA3 PO (10:39)
[2016-11-10] MEDS ORDERED: POLY17PO6 PO (10:39)
[2016-11-10] MEDS ORDERED: LOSA25TA2 PO (10:39)
[2016-11-10] MEDS ORDERED: HYDR-4003 PO (10:42)
--- NOTE | 2016-11-10 10:46 | PCM.DIMED ---
Discharge Instructions Date of Service November 10, 2016 Dates of Hospitalization Nov 07, 2016 at 12:55 Discharge Diagnosis Discharge Diagnosis Neck pain secondary to C3-C4 stenosis, DM2, HTN, Afib Medication Instructions Please take your pain medication carefully, as prescribed as it will cause drowsiness. Do not drive after taking pain meds. Flexeril may cause drowsiness. Avoid quick neck movements Losartan was increased to 50 mg QD and spironolactone 12.5 mg was added. Diet Diabetic Activity Home Health Phyical Therapy Call your provider Fever or Chills, Shortness of breath, Bleeding, Chest pain, Vomitting, Excessive diarrhea, Weakness (unilateral), Other Patient Instructions Follow-up plan F/U with PCP in 7-10 days F/U with Neurosurgery in 1-2 weeks Home health PT/OT Camryn Kaufman DO November 10, 2016 10:46
[2016-11-10] MEDS: HYDROcodone-APAP 10-325 mg PO PRN (11:04)
--- NOTE | 2016-11-10 11:16 | PCM.DC.MED ---
Discharge Summary Date of Service November 10, 2016 Dates of Hospitalization Date of Hospital Admission Nov 07, 2016 at 12:55 Date of Discharge: November 10, 2016 Providers: Admitting Physician: Vern Garces MD Primary Care Physician: Karlee Kaplan MD Attending Physician: Vern Garces MD Diagnosis at Time of Discharge Diagnosis at Time of Discharge Neck pain secondary to C3-C4 stenosis, DM2, HTN, Afib Procedures XRay, CTs & MRIs MRI CERVICAL SPINE WITHOUT CONTRAST 11/07 IMPRESSION: Lateral curvature of the spine as detailed above. Diffuse disc degeneration and facet arthropathy with moderate (predominantly left-sided) C3-C4 canal stenosis. Multiple, bilateral severe foraminal stenoses as detailed above by spinal level. Overall, no significant interval change since 03/02/13. Dictated by: Jorje Rainey M.D. on 11/07/2016 at 10:57 Approved by: Jorje Rainey M.D. on 11/07/2016 at 11:04 Brief History Mark Carter 70 year old male with Atrial Fibrillation on Warfarin, Type II diabetes presents to [facility] emergency department via EMS complaining of neck pain. Patient reported onset was two days ago. Two days ago he was unloading bags of soil from his truck when he felt some discomfort behind his right scapula, then went inside to relax and treated symptoms with one Vicodin which provided moderated relief. By midnight last night the pain had worsened and he took another dose of Vicodin. When he awakened to use the restroom at 02:00 this morning he was unable to get out of his bed until 06:00 due to neck pain rated 10/10 in severity at worst. Pain is exacerbated by movement and turning his head in both directions. Putting cooling ice packets to the area relived some of the pain. Patient denies fever, and any new numbness/weakness in his extremities. He denies any trauma He reports a history of similar 5 or 6 years ago, onset while sitting on his couch. At that time he experienced associated numbness/weakness of extremities, and was taken to the ER and subsequently hospitalized for 30 days. During his stay he had a head CT that revealed "white spots on his brain". 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 1. Acute on Chronic neck pain due to severe cervical spinal stenosis.. Present on admission. Persistent Etiology is unclear but imaging showed chronic changes. Suspect muscular issue with possible spasm. - No surgical intervention is needed, Neurological exam intact - Physical therapy assessment ongoing: They cleared pt for d/c on 11/09 - pain control, increased Vicodin 2 tab q 4 hours and Gabapentin 600 mg daily: Decreased Vicodin 1 tablet every 4 hours as we are adding Robaxin - consultation with Dr Roberson for OMT intervention: Soft tissue and muscle energy treatment are done 11/[address] Caldwell - Added flexeril three times a day a day by mouth as he complains of muscle spasm and muscle energy treatment helped --asked PT/OT to see the patient twice today to improve ROM -- homecare health 3 times a week is set up for patient 2 Diabetic neuropathic ulceration, left foot. Present on admission. healing No signs of cellulitis - wound care following, the changed the dressing yesterday - continue to follow up with Dr Key at wound care clinic -- Patient has a appointment with wound care on November 3 Hypertension Uncontrolled likely due to pain - continue Cozaar 25 mg daily, Coreg 12.5 mg daily -- Increased his Cozaar to 50 mg daily on 11/09 due to poor control, new medication spironolactone is added. -- f/u labs in one week prior to d/c 4 Type 2 Diabetes with peripheral neuropathy, diabetic foot ulcer, Nephropathy and no proliferative retinopathy Uncontrolled with A1c 9.7 - Hypoglycemia this morning 65 @ 8 AM - medium correction Lispro algorithm - checking A1c 6.1, reflecting good control - continuing Lantus outpatient dosing - patient recently started on Victoza sq and will be continued 5 Paroxysmal Atrial fibrillation on Coumadin Presumed stable - monitor on telemetry - continue rate control with Carvedilol - Coumadin managed by Pharmacy: 5mg home going dose per pharmacy 6 Chronic Kidney disease with proteinuria Baseline Cr 1.3-1.7. Due to Hypertensive nephrosclerosis and Diabetic nephropathy - avoid nephrotoxic insults - avoid NSAIDs - monitor urine output 7 Hyperlipidemia - continue Atorvastatin 40 mg daily 8 Acquired hypothyroidism - continue Synthroid 75 mcg daily - Acetaminophen as needed for mild pain/fever/headache - Bowel regimen as needed - Antiemetic as needed . Exam Vital Signs (Last) Date Time Temp Pulse Resp B/P Pulse Ox O2 Delivery O2 Flow Rate FiO2 11/10/16 09:21 67 11/10/16 08:04 36.7 16 181/98 97 Room Air Exam Gen.: Laying in bed without moving neck HEENT: Laying in bed on his back, improved neck ROM MSK: Neck range of motion from 10-15 in each direction except forward flexion is 10. Heart: Irregular, no S3-S4 murmurs Lungs: Clear to auscultation, no crackles or wheezes Abdomen: Nondistended Neck trachea appears central no thyromegaly Psych: Negative for anxiety Neuro: No focal deficits Skin: Diabetic foot ulcer over his left sole below the first MTP, 3 cm in diameter Test 11/07/16 04:20 11/07/16 08:49 11/07/16 09:15 11/10/16 05:15 Hemoglobin A1c 6.1% (4.8-5.6) White Blood Count 12.5th/mm3 (3.8-10.1) Red Blood Count 4.78mil/mm3 (4.40-5.80) Hemoglobin 14.5g/dL (13.8-17.2) Hematocrit 44.0% (41.0-50.0) Mean Corpuscular Volume 92.1fL (81-100) Mean Corpuscular Hemoglobin 30.3pg (27.0-35.0) Mean Corpuscular Hemoglobin Concent 33.0% (32.0-37.0) Red Cell Distribution Width 13.8% (12.3-15.4) Platelet Count 199bil/L (150-400) Neutrophils (%) (Auto) 79.3% (40-74) Lymphocytes (%) (Auto) 11.1% (14-46) Monocytes (%) (Auto) 8.2% (4-12) Eosinophils (%) (Auto) 1.0% (0-5) Basophils (%) (Auto) 0.2% (0-3) Sodium Level 140mEq/L (134-144) Potassium Level 4.4mEq/L (3.5-5.2) Chloride Level 101mEq/L (97-108) Carbon Dioxide Level 23mmol/L (18-29) Blood Urea Nitrogen 28mg/dL (8-27) Creatinine 1.28mg/dL (0.76-1.27) Estimat Glomerular Filtration Rate 59mL/min (>59) Glucose Level 284mg/dL (60-99) Calcium Level 9.7mg/dL (8.5-10.1) Total Bilirubin 0.8mg/dL (0.0-1.2) Aspartate Amino Transf (AST/SGOT) 21U/L (0-50) Alanine Aminotransferase (ALT/SGPT) 11U/L (0-44) Alkaline Phosphatase 95U/L (25-160) Total Protein 7.3g/dL (6.4-8.4) Albumin 3.7g/dL (3.4-5.0) Prothrombin Time 25.4sec (8.1-12.5) Prothromb Time International Ratio 2.33ratio Discharge Medications Discharge Medications Allopurinol (Allopurinol) 300 Mg Tablet 450 MG PO DAILY (Reported) Amlodipine (Amlodipine) 10 Mg Tablet 10 MG PO DAILY (Reported) Atorvastatin (Lipitor) 40 Mg Tablet 40 MG PO DAILY (Reported) Carvedilol (Carvedilol) 12.5 Mg Tablet 12.5 MG PO DAILY (Reported) Cyanocobalamin (Vitamin B-12) (Vitamin B-12) 1,000 Mcg Tab.subl 1,000 MCG SL DAILY (Reported) Furosemide (Lasix) 40 Mg Tablet 20 MG PO DAILY (Reported) Gabapentin (Gabapentin) 300 Mg Capsule 600 MG PO QAM (Reported) Insulin Aspart (NovoLOG U100 Insulin Vial) 100 U/Ml U 5-14 UNIT SUBQ TID ( Reported) Insulin Glargine (Lantus U100 Insulin Vial) 100 Unit/Ml Vial 32 UNIT SUBQ QAM ( Reported) Insulin Glargine (Lantus U100 Insulin Vial) 100 Unit/Ml Vial 22 UNIT SUBQ HS ( Reported) Iron Amino Acid Chelate/B12/FA (Ferractiv Iron 27 mg Formula) 1 Each Capsule 2 EACH PO DAILY (Reported) Levothyroxine (Levothyroxine) 75 Mcg Tablet 75 MCG PO DAILY (Reported) Liraglutide (Victoza 2-Vitaliy) 0.6 Mg/0.1 Ml Pen.injctr 1.2 MG SUBQ DAILY (Reported ) Losartan Potassium (Losartan Potassium) 25 Mg Tablet 25 MG PO DAILY (Reported) Losartan Potassium (Cozaar) 25 Mg Tablet 50 MG PO DAILY Prescribed by: CAMRYN CALDWELL DO Meclizine (Bonine) 25 Mg Tab.chew 25 MG PO DAILY (Reported) Multivitamin/Iron/Folic Acid (Century Tablet) 1 Each Tablet 1 EACH PO DAILY ( Reported) Spironolactone (Spironolactone) 25 Mg Tablet 12.5 MG PO DAILY Prescribed by: CAMRYN CALDWELL DO Warfarin Sodium (Warfarin Sodium) 2.5 Mg Tablet 5 MG PO DAILY (Reported) As needed Cetirizine HCl (Zyrtec) 10 Mg Capsule 10 MG PO DAILY PRN PRN allergies (Reported ) Cyclobenzaprine (Cyclobenzaprine) 10 Mg Tablet 10 MG PO TID PRN PRN For Spasm Prescribed by: CAMRYN CALDWELL DO Diclofenac Gel (Voltaren Gel) 100 Gm Tube 1 APPLIC TOPICAL DIRECTED PRN PRN For Pain (Reported) Hydrocodone-Acetaminophen 5-325 mg (Hydrocodone-Acetaminophen 5-325 mg) 1 Each Tablet 1 TABLET PO Q4H PRN PRN For Pain Prescribed by: CAMRYN CALDWELL DO Polyethylene Glycol 3350 (Miralax) 17 Gm Powd.pack 17 GM PO DAILY PRN PRN For Constipation Prescribed by: CAMRYN CALDWELL DO Additional med instructions Please take your pain medication carefully, as prescribed as it will cause drowsiness. Do not drive after taking pain meds. Flexeril may cause drowsiness. Avoid quick neck movements Losartan was increased to 50 mg QD and spironolactone 12.5 mg was added. Followup Plan Follow-up plan F/U with PCP in 7-10 days F/U with Neurosurgery in 1-2 weeks Home health PT/OT Discharge Diet: Diabetic Discharge Activity: Home Health Phyical Therapy Time spent 30 min Camryn Caldwell DO November 10, 2016 10:47
[2016-11-10 12:03] VITALS: BP 172/90; PULSE 84; RESP 16; O2SAT 96
[2016-11-10 12:56] VITALS: BP 155/81
== END 2016-11-10 14:47 | disposition home or self-care (01) ==
LOC: SED 08:28 → OSC 12:55
PROVIDERS: ADMIT Hospitalist; ATTEND Hospitalist
DX: M48.02 Spinal stenosis, cervical region (principal); I48.0 Paroxysmal atrial fibrillation; E11.621 Type 2 diabetes mellitus with foot ulcer; E11.42 Type 2 diabetes mellitus with diabetic polyneuropathy; N18.9 Chronic kidney disease, unspecified; I12.9 Hypertensive chronic kidney disease with stage 1 through stage 4 chronic kidney disease, or unspecified chronic kidney disease; E78.5 Hyperlipidemia, unspecified; M10.9 Gout, unspecified; E03.8 Other specified hypothyroidism; Z79.01 Long term (current) use of anticoagulants; Z79.4 Long term (current) use of insulin; Z79.899 Other long term (current) drug therapy
CPT/HCPCS: 36415; 72141; 80053; 83036; 85025; 85610; 86850; 96374; 96375; 97116; 97163; 97530; 97602; 99285; G0378; G8978; G8979; G8980; J1170; J1815; J2405; J7030

== ENCOUNTER 2017-01-03 11:53 | Inpatient (IN) | payer OTHER ==
[2017-01-03] VITALS (10 sets, daily range): BP systolic 132–156; BP diastolic 71–113; PULSE 110–142; RESP 17–30; O2SAT 93–95
[~2017-01-03] VITALS: Ht 172.7 cm; Wt 118.3 kg
[~2017-01-03 11:53] MED LIST changes: -ASPI-973 PO; -CHOL3000 PO; +CYAN100017 SL; -CYAN1TAB42 PO; +CYCL10TA9 PO; +DICL100G8 TOPICAL; +HYDR-4003 PO; -IRON18TA PO; +IRON1CAP3 PO; +LIRA0.6P SUBQ; +LOSA25TA2 PO; +POLY17PO6 PO; +SPIR25TA3 PO; +WARF2.5T82 PO
--- NOTE | 2017-01-03 11:53 | ED.REPORT ---
HPI-Trauma Minor / Fall Date of Service Jan 03, 2017 ED Provider: Nursing Notes Stated Complaint: FALL Nursing Notes Reviewed: Yes (Standing Cloud not reconciled) Allergies: Coded Allergies: Pentazocine Lactate (Verified Allergy, Unknown, 09/09/15) vancomycin (Unverified Allergy, Unknown, Hives, 09/09/15) rash and blisters hydrocortisone (Verified Adverse Reaction, Unknown, leg swelling, 11/07/16) Scheduled Allopurinol (Allopurinol) 300 Mg Tablet 450 MG PO DAILY Amlodipine (Amlodipine) 10 Mg Tablet 10 MG PO DAILY Atorvastatin (Lipitor) 40 Mg Tablet 40 MG PO DAILY Carvedilol (Carvedilol) 12.5 Mg Tablet 12.5 MG PO DAILY Cyanocobalamin (Vitamin B-12) (Vitamin B-12) 1,000 Mcg Tab.subl 1,000 MCG SL DAILY Furosemide (Lasix) 40 Mg Tablet 20 MG PO DAILY Gabapentin (Gabapentin) 300 Mg Capsule 600 MG PO QAM Insulin Aspart (NovoLOG U100 Insulin Vial) 100 U/Ml U 5-14 UNIT SUBQ TID Insulin Glargine (Lantus U100 Insulin Vial) 100 Unit/Ml Vial 32 UNIT SUBQ QAM Insulin Glargine (Lantus U100 Insulin Vial) 100 Unit/Ml Vial 22 UNIT SUBQ HS Iron Amino Acid Chelate/B12/FA (Ferractiv Iron 27 mg Formula) 1 Each Capsule 2 EACH PO DAILY Levothyroxine (Levothyroxine) 75 Mcg Tablet 75 MCG PO DAILY Liraglutide (Victoza 2-Vitaliy) 0.6 Mg/0.1 Ml Pen.injctr 1.2 MG SUBQ DAILY Losartan Potassium (Losartan Potassium) 25 Mg Tablet 25 MG PO DAILY Losartan Potassium (Cozaar) 25 Mg Tablet 50 MG PO DAILY Meclizine (Bonine) 25 Mg Tab.chew 25 MG PO DAILY Multivitamin/Iron/Folic Acid (Century Tablet) 1 Each Tablet 1 EACH PO DAILY Spironolactone (Spironolactone) 25 Mg Tablet 12.5 MG PO DAILY Warfarin Sodium (Warfarin Sodium) 2.5 Mg Tablet 5 MG PO DAILY Scheduled PRN Cetirizine HCl (Zyrtec) 10 Mg Capsule 10 MG PO DAILY PRN PRN allergies Cyclobenzaprine (Cyclobenzaprine) 10 Mg Tablet 10 MG PO TID PRN PRN For Spasm Diclofenac Gel (Voltaren Gel) 100 Gm Tube 1 APPLIC TOPICAL DIRECTED PRN PRN For Pain Hydrocodone-Acetaminophen 5-325 mg (Hydrocodone-Acetaminophen 5-325 mg) 1 Each Tablet 1 TABLET PO Q4H PRN PRN For Pain Polyethylene Glycol 3350 (Miralax) 17 Gm Powd.pack 17 GM PO DAILY PRN PRN For Constipation General Time Seen by MD: 11:52 Physical Exam Initial Vital Signs Vital Signs (First) Date Time Temp Pulse Resp B/P Pulse Ox O2 Delivery O2 Flow Rate FiO2 01/03/17 11:59 37.0 129 25 156/110 95 Room Air Initial VS: Reviewed, Unavailable (none on chart, ordered) Interpretation & Diagnostics Lab Results Interpretation Test 01/03/17 12:05 01/03/17 12:30 Re-Eval/Medical Decision Source of Hx: Old records, EMS Nader Gordon MD Jan 03, 2017 11:53 JAMMIE DOHERTY Jan 03, 2017 12:33
--- NOTE | 2017-01-03 11:57 | ED.REPORT ---
HPI-Trauma Minor / Fall Date of Service Jan 03, 2017 ED Provider: Dr. Gordon Pt is a 71 y/o male anticoagulated on Warfarin w/ a hx of IDDM, HTN, chronic foot wounds, A-fib, CAD s/p stenting, presenting to the ED via EMS c/o dizziness onset 5 days ago. The patient's glucometer stopped working 5 days ago and on that day he began to experience dizziness and general feeling of unwell. He has not been taking his insulin regularly due to the broken glucometer and attributes his symptoms now to hyperglycemia. He eventually got a single glucose reading last night which was "high" which prompted him to take a total of 66 units of insulin (this dose is more than double what his dosing in November was ). He states he usually takes 52 units in the morning and 32 units at night. His friends called him to check on him today and they were unable to get a hold of him therefore they went to his residence and found him on the floor seeming to be more confused than normal. At time of arrival of EMS to his residence, blood glucose was 93 which decreased to 50 on route. Medics gave 1 amp of D-50 which increased his glucose to 90, subsequently dropping to 58 at time of arrival to the ED. There is a strong suspicion that the patient may have accidentally overdosed on his Lantus at some point. The pt denies fever, chills , diaphoresis, headache, foot pain. He does not have sensation in his lower extremities and has noticed redness and swelling about his right foot. He is a poor historian. Nursing Notes Stated Complaint: FALL Nursing Notes Reviewed: Yes ([employer] not reconciled - EMR indicates warfarin use) Allergies: Coded Allergies: Pentazocine Lactate (Verified Allergy, Unknown, 09/09/15) vancomycin (Unverified Allergy, Unknown, Hives, 09/09/15) rash and blisters hydrocortisone (Verified Adverse Reaction, Unknown, leg swelling, 11/07/16) Scheduled Allopurinol (Allopurinol) 300 Mg Tablet 450 MG PO DAILY Amlodipine (Amlodipine) 10 Mg Tablet 10 MG PO DAILY Atorvastatin (Lipitor) 40 Mg Tablet 40 MG PO DAILY Carvedilol (Carvedilol) 12.5 Mg Tablet 12.5 MG PO DAILY Cyanocobalamin (Vitamin B-12) (Vitamin B-12) 1,000 Mcg Tab.subl 1,000 MCG SL DAILY Furosemide (Lasix) 40 Mg Tablet 20 MG PO DAILY Gabapentin (Gabapentin) 300 Mg Capsule 600 MG PO QAM Insulin Aspart (NovoLOG U100 Insulin Vial) 100 U/Ml U 5-14 UNIT SUBQ TID Insulin Glargine (Lantus U100 Insulin Vial) 100 Unit/Ml Vial 32 UNIT SUBQ QAM Insulin Glargine (Lantus U100 Insulin Vial) 100 Unit/Ml Vial 22 UNIT SUBQ HS Iron Amino Acid Chelate/B12/FA (Ferractiv Iron 27 mg Formula) 1 Each Capsule 2 EACH PO DAILY Levothyroxine (Levothyroxine) 75 Mcg Tablet 75 MCG PO DAILY Liraglutide (Victoza 2-Vitaliy) 0.6 Mg/0.1 Ml Pen.injctr 1.2 MG SUBQ DAILY Losartan Potassium (Losartan Potassium) 25 Mg Tablet 25 MG PO DAILY Losartan Potassium (Cozaar) 25 Mg Tablet 50 MG PO DAILY Meclizine (Bonine) 25 Mg Tab.chew 25 MG PO DAILY Multivitamin/Iron/Folic Acid (Century Tablet) 1 Each Tablet 1 EACH PO DAILY Spironolactone (Spironolactone) 25 Mg Tablet 12.5 MG PO DAILY Warfarin Sodium (Warfarin Sodium) 2.5 Mg Tablet 5 MG PO DAILY Scheduled PRN Cetirizine HCl (Zyrtec) 10 Mg Capsule 10 MG PO DAILY PRN PRN allergies Cyclobenzaprine (Cyclobenzaprine) 10 Mg Tablet 10 MG PO TID PRN PRN For Spasm Diclofenac Gel (Voltaren Gel) 100 Gm Tube 1 APPLIC TOPICAL DIRECTED PRN PRN For Pain Hydrocodone-Acetaminophen 5-325 mg (Hydrocodone-Acetaminophen 5-325 mg) 1 Each Tablet 1 TABLET PO Q4H PRN PRN For Pain Polyethylene Glycol 3350 (Miralax) 17 Gm Powd.pack 17 GM PO DAILY PRN PRN For Constipation General Time Seen by MD: 11:53 Chief Complaint Fall (presumed) Hx Obtained From: Patient, EMS Arrived By: Ambulance Onset Occurred: 5 days ago Symptom Duration: Since onset Severity: Current: No pain currently Severity: Maximum: No pain Past Medical History Past Medical History Notes: PCP Dr. 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 Past Medical History IDDM HTN History of foot ulceration followed by wound care center Patient is an anticoagulant warfarin-he thinks for atrial fibrillation cervical stenosis CAD s/p stent Past Surgical History right toe amputation Cardiac catheterization with angioplasty and stent placement Smoking History Never Smoker Social History Alcohol Use: Denies alcohol use Drug Use: Denies drug use Ambulatory Status Independent Review of Systems Constitutional: Denies: Chills, Fever Respiratory: Denies: Non-productive cough, Shortness of breath Musculoskeletal: Reports: Extremity swelling, Denies: Extremity pain Skin: Reports Rash, Reports Swelling Neurologic: Reports: Dizziness, Lightheaded, Denies: Focal weakness, Headache, Numbness, Slurred speech Complete sys rev & neg: except as marked. Cardiovascular: Denies: Chest pain, Dyspnea on exertion GI: Denies: Abdominal pain, Nausea, Vomiting Physical Exam Initial Vital Signs Vital Signs (First) Date Time Temp Pulse Resp B/P Pulse Ox O2 Delivery O2 Flow Rate FiO2 01/03/17 11:59 37.0 129 25 156/110 95 Room Air Initial VS: Reviewed, Unavailable (none on chart, ordered) Skin: Warm, Dry Psychiatric: Mood/affect normal, Behavior normal, Normal thought content General/Constitutional: Awake, Alert Distress / Hydration: Positive: Dehydration moderate, Dehydration severe Able to answer questions Appears disheveled with poor hygiene Neck: Atraumatic, Supple, No meningismus, Full range of motion Head / Eyes: Normocephalic, PERRL Periorbital ecchymosis on the right ENT: Atraumatic, Airway patent Mouth: Positive: Mucous membranes dry (extreme) Respiratory / Chest: Breath sounds NL, Breath sounds = bilat, No respiratory distress, No rales, No rhonchi, No wheezing, No retractions, No stridor Cardiovascular: Heart sounds NL, No gallop, No murmurs, No rubs Heart Rate / Rhythm: Positive: Irreg irregular rhythm, Tachycardia A-fib with RvR present Abdomen: Atraumatic, Soft, Non-tender, No guarding, No rebound, No distention Back: Full range of motion, Painless range of motion Upper Extremity / MS: Atraumatic, Inspection NL, Full range of motion, No swelling, Non-tender, No erythema, No deformity, Neurologic intact, Vascular intact Lower Extremity / Pelvis / MS: Atraumatic, Non-tender, No deformity, No compartment syndrome, No circumferential injury Swollen and erythematous right foot and proximal gonzalez concerning for lower extremity cellulitis Point of possible skin breakdown No suzette abscess Decreased sensation and weakness in the right leg which he states is chronic Ankle / Foot: Non-tender, No deformity, Vascular intact Toe amputation of the RLE Neurologic: Oriented X3, Speech NL Decreased sensation and weakness in the right leg which he states is chronic No other focal deficits He is mildly confused Family says he is mildly confused at baseline but is slightly worse today - per EMS Can give a history but it is confusing and does not match the EMS report Interpretation & Diagnostics Lab Results Interpretation Result Diagram: 01/03/17 1205 01/03/17 1205 Test 01/03/17 12:05 White Blood Count 24.3th/mm3 (3.8-10.1) Red Blood Count 4.26mil/mm3 (4.40-5.80) Hemoglobin 12.7g/dL (13.8-17.2) Hematocrit 38.8% (41.0-50.0) Mean Corpuscular Volume 91.1fL (81-100) Mean Corpuscular Hemoglobin 29.8pg (27.0-35.0) Mean Corpuscular Hemoglobin Concent 32.7% (32.0-37.0) Red Cell Distribution Width 15.1% (12.3-15.4) Platelet Count 203bil/L (150-400) Neutrophils (%) (Auto) 81.3% (40-74) Lymphocytes (%) (Auto) 7.3% (14-46) Monocytes (%) (Auto) 10.6% (4-12) Eosinophils (%) (Auto) 0% (0-5) Basophils (%) (Auto) 0.1% (0-3) Prothrombin Time 18.4sec (8.1-12.5) Prothromb Time International Ratio 1.70ratio Sodium Level 140mEq/L (134-144) Potassium Level 4.7mEq/L (3.5-5.2) Chloride Level 99mEq/L (97-108) Carbon Dioxide Level 21mmol/L (18-29) Blood Urea Nitrogen 43mg/dL (8-27) Creatinine 2.19mg/dL (0.76-1.27) Estimat Glomerular Filtration Rate 32mL/min (>59) Glucose Level 51mg/dL (60-99) Calcium Level 9.6mg/dL (8.5-10.1) Magnesium Level 2.3mg/dL (1.6-2.6) Total Bilirubin 1.0mg/dL (0.0-1.2) Aspartate Amino Transf (AST/SGOT) 40U/L (0-50) Alanine Aminotransferase (ALT/SGPT) 17U/L (0-44) Alkaline Phosphatase 122U/L (25-160) Troponin T 0.019ug/L (0.0-0.011) Total Protein 7.7g/dL (6.4-8.4) Albumin 3.5g/dL (3.4-5.0) Lab Results Interpretation: CBC positive severe leukocytosis CMP Renal insufficiency, suspect secondary to dehydration and acute kidney injury, recurrent hypoglycemia Lactic acid marginally elevated, blood cultures 2 pending Troponin indeterminate terminate, marginally elevated-suspect secondary to kidney injury rather than primary cardiac etiology INR subtherapeutic ECG Interpretation ECG Interpretation: Atrial flutter rate 108 Computer reads prolonged QT interval but I believe this is incorrect Previous EKG was sinus rhythm Time: 13:03 Interpreted by: ED physician Normal ECG Interpretation: No acute ischemic changes X-Ray Chest Interpretation Chest Xray Interpretation: IMPRESSION: No acute cardiopulmonary disease. Dictated by: Milton Bardales M.D. on 01/03/2017 at 13:55 Approved by: Milton Bardales M.D. on 01/03/2017 at 13:56 View: Portable, 1 view Interpretation / Wet Read by: Interpret - Radiologist CT Head Interpretation IMPRESSION: 1. No acute intracranial abnormalities. 2. Cerebral volume loss and chronic microvascular ischemic changes. Dictated by: Milton Bardales M.D. on 01/03/2017 at 12:54 Approved by: Milton Bardales M.D. on 01/03/2017 at 12:56 Study: Head CT no contrast Interpretation / Wet Read by: Interpret - Radiologist US Focused Lower Ext Venous IMPRESSION: No deep venous thrombosis in the right lower extremity. Dictated by: Milton Bardales M.D. on 01/03/2017 at 12:40 Approved by: Milton Bardales M.D. on 01/03/2017 at 12:41 Exam Performed by: [facility] pract Exam Type: Diagnostic Exam Interpreted by: Radiologist Re-Eval/Medical Decision Med Decision/Clinical Course This is a 71-year-old male diabetic on warfarin for A. fib who was found on the floor today by friends and/or neighbors who called 911. He was a history, but there is some concern for mild confusion, in the accuracy of the details he provides is at times questionable. The patient reports that over the past 5 days he has has a problem with his glucometer, and that he has not known what his glucose is been. Initially was concerned that his blood sugar was low, but last night started feeling like his blood sugar might be high-so he reports taking Lantus. The patient claims he took more than 50 units of Lantus last evening, and interestingly he has discharge paperwork from a month ago where his evening dose of Lantus is only 20 something units, and is more units is only 30-suggesting he may have accidentally significantly overdosed on his Lantus. He also reports being globally weak, without focal deficit, and has had several falls. Apparently friends and her family did not seem for several days, came and found him on the floor and called 911 today. The patient had a normal Accu-Chek for a mass, but seemed a little slow at times, and a repeat Accu-Chek demonstrated hypoglycemia as the patient RECEIVED 2 half amps of dextrose en route with an improved glucose during transport. The patient denies headache, although he has visual ecchymosis around right periorbital region, he denies neck pain, he denies chest pain or shortness of breath. He does have what appears to be significant cellulitis and swelling of the right foot and leg-he has a severe diabetic neuropathy and some weakness in the right leg which she states is chronic. He is followed by Dr. Key podiatry and is status post a toe amputation, and had cultures of the right leg in November that were methicillin sensitive staph positive. The patient does have some weakness and definitely decreased sensation in the right leg-but again states this is baseline for him, he is slightly slow, but again has no focal deficits aside from the chronic findings. He does not meet criteria for a stroke, is hypoglycemic and has multiple etiologies-and therefore is not a candidate for TPA. Given his anticoagulated status, history of falls, periorbital ecchymosis and CT the brain was obtained and was negative. Clinically severely dehydrated and received IV fluids. A venous blood gas was obtained given his history of being out of insulin, but there is no findings of DKA. He has a normal pH. The patient continued to have episodes of hypoglycemia, and received multiple rounds of dextrose in the department. He received an initial dose of one half amp of D50, which was repeated-this does not show up in [facility], as the [facility] claims hospitals out of D50, although we had a bedside administered. A paper order was completed for this medication. The patient was then started on D10, and continue have some improvements, but followed by recurrent hypoglycemia-or getting the patient to eat as he is awake. All of this hypoglycemia is suggested the patient has accidentally overdosed on his Lantus. Duplex ultrasound of right lower extremities was negative for DVT. He is being started on antibiotics. I initially ordered Zosyn and vancomycin, for polymicrobial MRSA and diabetic foot coverage - however then records were identified indicate a possible vancomycin allergy, so this was discussed with pharmcy and this was transitioned to Linezolid which now generic. However the interim I also talked to the hospitalist, given his culture is relatively recent for MSSA, he recommends simply using Cefzil and alone hypertensive this is being given. The patient's receiving fluids and does appear to have a component of acute kidney injury-likely secondary to dehydration. He has a marginal troponin, but I suspect this is secondary to the renal insufficiency rather than a primary cardiac etiology. The patient's in atrial flutter in the department. No acute ischemic changes, no clinical findings of an acute coronary syndrome are evident. He is being admitted for continued management. He was seen in the department by the hospitalist. He is being maintained on a dextrose infusion, with serial Accu-Cheks given the recurrent hypoglycemia. Source of Hx: Old records, EMS Re-Evaluation/Progress : Time of Eval: 12:37 Re-Evaluation/Progress Note: Pt rechecked. Informed pt of need for admission. Pt understands and agrees with plan for admission. All questions addressed. Consultation : Referral / Consult Name: William Conde MD Consulted With: Hospitalist Call Returned at: 12:35 Land Survey Technician: Will see patient, Agrees with eval, Agrees with plan, Accepts admit Note: Last culture in November MSSA, hospitalist requests Cefazolin Counseled Regarding: Diagnosis, Lab results, Need for admission Discharge & Departure Impression: Primary Impression: Sepsis Sepsis type: sepsis due to unspecified organism Qualified Code: A41.9 - Sepsis, unspecified organism Additional Impressions: Cellulitis of right foot Hypoglycemia Dehydration Atrial fibrillation with rapid ventricular response Anticoagulated on warfarin Subtherapeutic international normalized ratio (INR) Altered mental status Altered mental status type: delirium Qualified Code: R41.0 - Disorientation , unspecified Overdose of insulin Encounter type: initial encounter Injury intent: accidental or unintentional Qualified Code: T38.3X1A - Poisoning by insulin and oral hypoglycemic [antidiabetic] drugs, accidental (unintentional), initial encounter Multiple falls Acute kidney injury Disposition: ADMITTED TO HOSPITAL Discharge Condition All VS Reviewed: Yes Condition: Stable Referrals: Karlee Kaplan MD (PCP) Crit Care Except Billable Proc Time Spent: 30-74 minutes Services Performed: Patient management by me, Time spent at bedside, Reviewing test results, Reviewing imaging, Discussing patient care, Documentation in record Scribe Attestation Portions of this note were transcribed by Reinier Rossi. Dr. Evan Artis personally performed the history, physical exam and medical decision-making; I reviewed and confirmed the accuracy of the information in the transcribed note. Signed by Isabelle Patel, 01/03/17 - 1215 copies to: Karlee Kaplan MD, Matthew F MD Jan 03, 2017 11:57 REINIER ROSSI Jan 03, 2017 12:08 Subtherapeutic international normalized ratio (INR) Altered mental status Altered mental status type: delirium Qualified Code: R41.0 - Disorientation , unspecified Overdose of insulin Encounter type: initial encounter Injury intent: accidental or unintentional Qualified Code: T38.3X1A - Poisoning by insulin and oral hypoglycemic [antidiabetic] drugs, accidental (unintentional), initial encounter Multiple falls Acute kidney injury Disposition: ADMITTED TO HOSPITAL Discharge Condition All VS Reviewed: Yes Condition: Stable Referrals: Karlee Kaplan MD (PCP) Crit Care Except Billable Proc Time Spent: 30-74 minutes Services Performed: Patient management by me, Time spent at bedside, Reviewing test results, Reviewing imaging, Discussing patient care, Documentation in record Scribe Attestation Portions of this note were transcribed by Reinier Rossi. Dr. Evan Artis personally performed the history, physical exam and medical decision-making; I reviewed and confirmed the accuracy of the information in the transcribed note. Signed by Isabelle Patel, 01/03/17 - 1215 copies to: Karlee Kaplan MD, Matthew F MD Jan 03, 2017 11:57 REINIER ROSSI Jan 03, 2017 12:08
[2017-01-03] MEDS ORDERED: Vancomycin Dose per Pharmacist XX ONE (12:15)
[2017-01-03] MEDS ORDERED: Piperacillin-Tazo 3.375 Gm Inj 3.375 GM in Dextrose 5% Minibag Plus 50 ML IV ONE (12:15)
[2017-01-03] MEDS ORDERED: 0.9% Sodium Chloride 1,000 ML IV ONE ×2 (12:15→13:50)
[2017-01-03] MEDS ORDERED: Linezolid Inj 600 MG in IV Premix 1 EACH IV ONE (12:25)
[2017-01-03 12:31] LABS: BASOPHILS % (AUTO) 0.1 % (0-3); EOSINOPHILS % (AUTO) 0 % (0-5); MONOCYTES % (AUTO) 10.6 % (4-12); Mean Corpuscular Hemoglobin 29.8 pg (27.0-35.0); Mean Corpuscular Volume 91.1 fL (81-100); NEUTROPHILS % (AUTO) 81.3 % (40-74); Platelet Count 203 bil/L (150-400)
[2017-01-03] MEDS ORDERED: CeFAZolin 2 Gm/50 mL D5W Duplex Bag IV ONE (12:40)
--- NOTE | 2017-01-03 12:43 | DRSVH ---
PROCEDURE: US VEINOUS LEG DUPLEX UNILATERAL, RIGHT INDICATIONS: R swelling TECHNIQUE: Real-time imaging, as well as color and pulse Doppler interrogation, were performed of the lower extr emity deep veins from the inguinal ligament to the popliteal fossa. COMPARISON: [facility], US, US VENOUS LEG DPLX UNI RT, 12/16/2015, 14:35. FINDINGS: The deep veins are normally compressible, and free of intraluminal thrombus. Color and pu lse Doppler demonstrate normal phasic intraluminal flow. There is normal augmentation response to di stal compression maneuver. IMPRESSION: No deep venous thrombosis in the right lower extremity. Dictated by: Milton Bardales M.D. on 01/03/2017 at 12:40 Approved by: Milton Bardales M.D. on 01/03/2017 at 12:41
[2017-01-03 12:49] LABS: INR 1.7 ratio
[2017-01-03 12:57] LABS: TROPONIN T 0.019 ug/L (0.0-0.011)
--- NOTE | 2017-01-03 12:58 | DRSVH ---
PROCEDURE: CT BRAIN WITHOUT CONTRAST ([id number]) INDICATIONS: Trauma, confused, anticoagulated TECHNIQUE: Noncontrast 4.5 mm thick angled axial sections acquired from the foramen magnum to the vertex, with c oronal reformats. COMPARISON: [facility], MR, MR BRAIN WO CON, 06/08/2016, 10:35. [facility], CT, BRAIN W/O CONTRAST, 10/03/2012, 14:29. FINDINGS: Image quality: Excellent. CSF spaces: Basal cisterns are patent. No extra-axial fluid collections. The ventricles are symmet caity in size and shape. 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 No intracranial bleeds or masses. There is cerebral volume loss for age, with resultant ventricular and sulcal prominence. There are periven tricular and deep white matter chronic small vessel ischemic changes. There is intracranial internal carotid artery atherosclerosis. Skull and face: Calvarium and visualized facial bones appear intact, without suspicious lesions. Sinuses: Visualized sinuses and mastoids are clear. IMPRESSION: 1. No acute intracranial abnormalities. 2. Cerebral volume loss and chronic microvascular ischemic changes. Dictated by: Milton Bardales M.D. on 01/03/2017 at 12:54 Approved by: Milton Bardales M.D. on 01/03/2017 at 12:56
[2017-01-03 13:08] LABS: Magnesium 2.3 mg/dL (1.6-2.6)
[2017-01-03] MEDS ORDERED: Dextrose 5% 0.9% NaCl 1,000 ML IV ONE (13:15)
[2017-01-03] MEDS ORDERED: Ondansetron 2 mg/mL 2 mL Inj IVPUSH PRN (13:40)
[2017-01-03] MEDS ORDERED: Lactated Ringer's 1,000 ML IV SCH (13:40)
[2017-01-03] MEDS ORDERED: 0.9% Sodium Chloride 1,000 ML IV SCH (13:40)
[2017-01-03] MEDS ORDERED: Polyethylene Glycol (PEG) 17 Gm Powder PO PRN (13:40)
[2017-01-03] MEDS ORDERED: Alum-Mag Hydrox-Simeth 30 mL Suspension PO PRN (13:40)
--- NOTE | 2017-01-03 13:58 | DRSVH ---
PROCEDURE: X-RAY CHEST ONE VIEW, PORTABLE ([id number]) INDICATIONS: fall, anticoaguled TECHNIQUE: One view of the chest was acquired. COMPARISON: [facility], CR, XR CHEST 2VW, 08/26/2015, 16:09. FINDINGS: Surgical changes and devices: None. Lungs and pleura: No pleural effusions or pneumothorax. Lungs are clear. Mediastinum: Mediastinal contours appear normal. Heart size is normal. Bones and chest wall: No suspicious bony lesions. Overlying soft tissues appear unremarkable. IMPRESSION: No acute cardiopulmonary disease. Dictated by: Milton Bardales M.D. on 01/03/2017 at 13:55 Approved by: Milton Bardales M.D. on 01/03/2017 at 13:56
[2017-01-03] MEDS ORDERED: CeFAZolin Inj 1 GM in IV Premix 1 EACH IV SCH (14:00)
--- NOTE | 2017-01-03 16:12 | PCM.HPMED ---
Subjective Date of Service Jan 03, 2017 Primary Provider: Admitting Physician: William Conde MD Primary Care Physician: Karlee Kaplan MD Attending Physician: William Conde MD Chief Complaint: Found down History of Present Illness: 71-year-old male with history of insulin-dependent type II diabetes with neuropathy, hypertension, atrial fibrillation on warfarin, coronary artery disease with stents, history of right big toe amputation, and undergoing wound care presents to the emergency department after being found on the floor today by friends and neighbors called 911. The reason for the patient be on the floor was not observed. The patient has mild confusion and appears to be a poor historian. However, 5 days ago the patient began having issues with his glucometer and around that time began dispensing dizziness and general malaise. The patient usually takes 20-30 of Lantus every evening reports recently taking more than 50, and last night taking more than 60. When he was found, EMS reports his blood glucose was 93, but subsequently decreased to 50 and not to the hospital. Patient was given 2 Amps of D50 and emergency department was still only in the 70s. Patient was given fluids and D5W. Patient denies cold sweat, fever, chills, chest pain, dysuria, leg pain. However, the patient does endorse headache, and some abdominal pain. She also has some sensation in his lower extremities bilaterally alert greatly reduced. Patient also has recent complaints that his right lower extremity has increased in size, tenderness, has become more erythematous. Patient previously had a right big toe amputation and has numerous scarring on his right foot but he denies discharge. Duplex of the right lower extremity was obtained and negative for DVT. Patient's white count was also greater than 20,000, and lactic acid was elevated at 2.2. The patient also had creatinine of 2.19 which is markedly elevated from October. Review of Systems: Complete review of systems performed. Pertinent positives and negatives per history of present illness. Allergies Coded Allergies: Pentazocine Lactate (Verified Allergy, Unknown, 09/09/15) vancomycin (Unverified Allergy, Unknown, Hives, 09/09/15) rash and blisters hydrocortisone (Verified Adverse Reaction, Unknown, leg swelling, 11/07/16) Home Medications Allopurinol (Allopurinol) 300 Mg Tablet 450 MG PO DAILY Amlodipine (Amlodipine) 10 Mg Tablet 10 MG PO DAILY Atorvastatin (Lipitor) 40 Mg Tablet 40 MG PO DAILY Carvedilol (Carvedilol) 12.5 Mg Tablet 12.5 MG PO DAILY Cyanocobalamin (Vitamin B-12) (Vitamin B-12) 1,000 Mcg Tab.subl 1,000 MCG SL DAILY Furosemide (Lasix) 40 Mg Tablet 20 MG PO DAILY Gabapentin (Gabapentin) 300 Mg Capsule 600 MG PO QAM Insulin Aspart (NovoLOG U100 Insulin Vial) 100 U/Ml U 5-14 UNIT SUBQ TID Insulin Glargine (Lantus U100 Insulin Vial) 100 Unit/Ml Vial 32 UNIT SUBQ QAM Insulin Glargine (Lantus U100 Insulin Vial) 100 Unit/Ml Vial 22 UNIT SUBQ HS Iron Amino Acid Chelate/B12/FA (Ferractiv Iron 27 mg Formula) 1 Each Capsule 2 EACH PO DAILY Levothyroxine (Levothyroxine) 75 Mcg Tablet 75 MCG PO DAILY Liraglutide (Victoza 2-Vitaliy) 0.6 Mg/0.1 Ml Pen.injctr 1.2 MG SUBQ DAILY Losartan Potassium (Losartan Potassium) 25 Mg Tablet 25 MG PO DAILY Losartan Potassium (Cozaar) 25 Mg Tablet 50 MG PO DAILY Meclizine (Bonine) 25 Mg Tab.chew 25 MG PO DAILY Multivitamin/Iron/Folic Acid (Century Tablet) 1 Each Tablet 1 EACH PO DAILY Spironolactone (Spironolactone) 25 Mg Tablet 12.5 MG PO DAILY Warfarin Sodium (Warfarin Sodium) 2.5 Mg Tablet 5 MG PO DAILY Cetirizine HCl (Zyrtec) 10 Mg Capsule 10 MG PO DAILY PRN PRN allergies Cyclobenzaprine (Cyclobenzaprine) 10 Mg Tablet 10 MG PO TID PRN PRN For Spasm Diclofenac Gel (Voltaren Gel) 100 Gm Tube 1 APPLIC TOPICAL DIRECTED PRN PRN For Pain Hydrocodone-Acetaminophen 5-325 mg (Hydrocodone-Acetaminophen 5-325 mg) 1 Each Tablet 1 TABLET PO Q4H PRN PRN For Pain Polyethylene Glycol 3350 (Miralax) 17 Gm Powd.pack 17 GM PO DAILY PRN PRN For Constipation PMH IDDM HTN History of foot ulceration followed by wound care center Patient is an anticoagulant warfarin-he thinks for atrial fibrillation cervical stenosis CAD s/p stent Surgical History right toe amputation Cardiac catheterization with angioplasty and stent placement Family History Positive Family history of diabetes Social History Hx Alcohol Use: No Hx Substance Use: No Hx Tobacco Use: No Smoking Status: Never Smoker Living Arrangement: Alone Exam Vital Signs Vital Sign - Last Date Time Temp Pulse Resp B/P Pulse Ox O2 Delivery O2 Flow Rate FiO2 01/03/17 14:21 124 01/03/17 14:20 36.9 30 132/71 93 Room Air Exam General: Alert, Oriented X3, Cooperative, No acute Distress Eyes: PERRLA, Scleral Anicteric Mouth: Mouth Normal, Mucous Membranes dry Neck: Supple, no Thyromegaly, trachea central. Chest & Lungs: Clear to auscultation & percussion, No adventitious breath sounds, no crackles, positive wheeze more centrally Cardiovascular: Irregular rhythm (No JVD, no peripheral edema) Pulses: Pulses equal in upper and lower extremities Abdomen: Soft, Non-tender, Non-distended, Normoactive bowel tones. Extremities: Edema, erythema, and blanching on palpation on the right with missing right big toe and multiple scars; no induration Psych: Appropriate mood and affect Neuro: Decreased sensation in lower extremities otherwise intact; patient is alert and oriented 3 Lab and Diagnostics Result Diagram: 01/03/17 1205 01/03/17 1205 X-Rays, CTs and MRIs CT brain 1. No acute intracranial abnormalities. 2. Cerebral volume loss and chronic microvascular ischemic change Dictated by: Milton Bardales M.D. on 01/03/2017 at 12:54 Chest x-ray IMPRESSION: No acute cardiopulmonary disease. Dictated by: Milton Bardales M.D. on 01/03/2017 at 13:55 Venous duplex IMPRESSION: No deep venous thrombosis in the right lower extremity. Dictated by: Milton Bardales M.D. on 01/03/2017 at 12:40 Cardiac Echo Impressions Last echo 04/06/16 Interpretation Summary Left ventricular wall thickness is mild-moderately increased. Assessment of diastolic parameters indicates a relaxation abnormality of the left ventricle, consistent with normal filling pressures. The right ventricle is normal in size and function. Pulmonary artery pressures cannot be estimated because of the lack of a measurable TR jet velocity. Both atria are normal in size. There is no significant valvular heart disease. The aortic root is normal size. The aortic arch is normal in size. Assessment & Plan 71-year-old male with recent amputation of his right big toe and insulin- dependent diabetes who presents after being found down, with hypoglycemia and increased erythema of the right lower extremity consistent with cellulitis. Severe Sepsis second to right lower extremity cellulitis, present on admission, ongoing - Leukocytosis, tachycardia, and tachypnea - Obvious RLE edema and erythema - Likely causing elevated glucose that led to hypoglycemia below - Recent cultures in september show MSSA pansensitive; will assume same organism - Started on Ancef - 3L NS bolus and two 250ml bags of D5W and D10W - Follow labs; ordered procal for today Anion gap metabolic acidosis with lactic acidosis; present on admission; ongoing -Patient presents with an anion gap of 20, lactic acid of 2.2 -Fluids as above -Trend every 4 to resolution Hypoglycemia, due to noncompliance; present on admission; ongoing - Pt has been without his glucometer; when obtained reading was "very high" likely due to above infection - Patient overdosed on Lantus, taking 2-3 times more than prescribed - Continue to monitor glucose hourly - D10 ordered Acute on chronic kidney injury; present on admission; ongoing - Baseline Cr 1.3-1.7. Due to Hypertensive nephrosclerosis and Diabetic nephropathy - avoid nephrotoxic insults - monitor urine output - 2-3L on admission - NS 125ml/hr Mild troponin elevation; present on admission; ongoing -Likely due to acute kidney injury -Very mild elevation and we will trend troponin Hypertension; present on admission; ongoing - resuming all antihypertensive once med rec completed Type 2 Diabetes with peripheral neuropathy, diabetic foot ulcer, Nephropathy and no proliferative retinopathy; present on admission; ongoing - Better controlled with A1c 6.1; it was recently 9.7 - medium correction Lispro algorithm - checking A1c as last was in October - Lantus 20 units nightly - Hold Victoza sq Paroxysmal Atrial fibrillation on Coumadin; present on admission; stable - monitor on telemetry - continue rate control with Carvedilol - Continue warfarin - Daily INR Hyperlipidemia - continue Atorvastatin 40 mg daily Acquired hypothyroidism - continue Synthroid 75 mcg daily Patient is being admitted to inpatient status on the [facility] with expected length of stay is greater than 2 mid nights due to severity of presentation, duration of treatment, and risk of adverse events. VTE Mechanical Devices: Intermittant Pneumatic CD Attending Statement The patient was seen and examined together with Dr. Barton on 01/03/2017 and I agree with the history, exam and plan as outlined in the note above. . copies to: Karlee Kaplan MD, Michael R DO Jan 03, 2017 16:12 William Conde MD Jan 03, 2017 19:52
[2017-01-03] MEDS: 0.9% Sodium Chloride 1,000 ML IV SCH ×2 (16:23→21:50)
[2017-01-03] MEDS: Sodium Chloride LOK Flush 10 mL Syringe IVFLUSH SCH (16:23)
--- NOTE | 2017-01-03 16:57 | NUR ---
Admit pt. admitted to 2019 this afternoon from ER; bg 194; finished D5NS liter bag, hung 1L NS bag; currently running NS 125 ml/hr after bolus administered. Tele a-fib 110-140s; bp 144/78; notified; med rec updated; waiting for orders. Pt. A&O; RA sats mid-high 90's; intermittent full body jerking/twitch pt. states is baseline. Numbness/decreased sensation to bilateral lower extremities. C/o pain to right foot with activity. Right foot redenned, pitting edema, small, weeping open wound to top of foot; 4x4 over site and wrapped in kerlix. Bottom of left foot post procedure with podiatry, currently being seen by wound care; reinforced dressing with 4x4 and wrapped in kerlix; wound care consult ordered. Pt. had several falls at home; generalized abrasions throughout. Med rec completed.
[2017-01-03] MEDS ORDERED: Glucose 40% Oral Gel 15 Gm Tube PO PRN (18:40)
[2017-01-03 19:21] LABS: TROPONIN T < 0.010 ug/L (0.0-0.011)
--- NOTE | 2017-01-03 19:26 | PCM.CONPHA ---
Subjective Date of Service: Jan 03, 2017 Found down Reason for Pharmacy Consult: Anticoagulation Management Objective Vital Signs Date Time Temp Pulse Resp B/P Pulse Ox O2 Delivery O2 Flow Rate FiO2 01/03/17 16:49 127 144/78 01/03/17 16:33 37.1 135 25 142/113 94 Room Air 01/03/17 14:21 124 01/03/17 14:20 36.9 120 30 132/71 93 Room Air 01/03/17 13:32 37.4 116 17 135/76 93 Room Air 01/03/17 12:29 114 24 139/76 93 Room Air 01/03/17 11:59 37.0 129 25 156/110 95 Room Air Weight (Kilograms): 84.090 Height (Feet): 5 Height (Inches): 8.00 Test 01/03/17 12:05 01/03/17 16:05 01/03/17 18:15 White Blood Count 24.3th/mm3 (3.8-10.1) Red Blood Count 4.26mil/mm3 (4.40-5.80) Hemoglobin 12.7g/dL (13.8-17.2) Hematocrit 38.8% (41.0-50.0) Mean Corpuscular Volume 91.1fL (81-100) Mean Corpuscular Hemoglobin 29.8pg (27.0-35.0) Mean Corpuscular Hemoglobin Concent 32.7% (32.0-37.0) Red Cell Distribution Width 15.1% (12.3-15.4) Platelet Count 203bil/L (150-400) Neutrophils (%) (Auto) 81.3% (40-74) Lymphocytes (%) (Auto) 7.3% (14-46) Monocytes (%) (Auto) 10.6% (4-12) Eosinophils (%) (Auto) 0% (0-5) Basophils (%) (Auto) 0.1% (0-3) Prothrombin Time 18.4sec (8.1-12.5) Prothromb Time International Ratio 1.70ratio Sodium Level 140mEq/L (134-144) Potassium Level 4.7mEq/L (3.5-5.2) Chloride Level 99mEq/L (97-108) Carbon Dioxide Level 21mmol/L (18-29) Blood Urea Nitrogen 43mg/dL (8-27) Creatinine 2.19mg/dL (0.76-1.27) Estimat Glomerular Filtration Rate 32mL/min (>59) Glucose Level 51mg/dL (60-99) Calcium Level 9.6mg/dL (8.5-10.1) Phosphorus Level 1.4mg/dL (2.5-4.9) Magnesium Level 2.3mg/dL (1.6-2.6) Total Bilirubin 1.0mg/dL (0.0-1.2) Aspartate Amino Transf (AST/SGOT) 40U/L (0-50) Alanine Aminotransferase (ALT/SGPT) 17U/L (0-44) Alkaline Phosphatase 122U/L (25-160) Total Protein 7.7g/dL (6.4-8.4) Albumin 3.5g/dL (3.4-5.0) Lactic Acid Level 1.5mmol/L (0.4-2.0) Assessment/Plan Assessment/Plan WARFARIN MANAGEMENT A\ 71 YO M ADMITTED FOR HYPOGLYCEMIA AND FALLS WITH A HISTORY OF AFIB home dose Warfarin 5mg daily Current INR=1.7 Goal INR =2-3 HCT 38.8 Yyq=151 no bleeding per RN Allopurinol and Levothyroxine can increase bleeding risk while on Warfarin P\ Will continue pt home dose Warfarin 5mg po x1 tonight and check daily INRs Billy Hutson [facility] Jan 03, 2017 19:25
[2017-01-03] MEDS: Insulin GLARgine 100 Unit/mL Syringe SUBQ SCH (20:23)
[2017-01-03] MEDS ORDERED: Piper-Tazo 3.375 Gm/50 mL D5W Minibag Plus - Q8H over 4 hrs IV ONE ×2 (21:30)
[2017-01-03] MEDS: Insulin LISPRO 300 Unit/3 mL Inj SUBQ SCH (22:00)
[2017-01-04] VITALS (10 sets, daily range): BP systolic 108–132; BP diastolic 52–70; PULSE 89–123; RESP 18–27; O2SAT 91–95
[2017-01-04] MEDS: Sodium Chloride LOK Flush 10 mL Syringe IVFLUSH SCH ×3 (01:11→17:22)
[2017-01-04] MEDS: 0.9% Sodium Chloride 1,000 ML IV SCH ×3 (01:21→21:46)
[2017-01-04] MEDS ORDERED: CeFAZolin Inj 1 GM in IV Premix 1 EACH IV SCH (02:00)
[2017-01-04 03:46] LABS: Mean Corpuscular Hemoglobin 30.2 pg (27.0-35.0); Mean Corpuscular Volume 91.5 fL (81-100); Platelet Count 151 bil/L (150-400)
[2017-01-04 04:03] LABS: BASOPHILS % (AUTO) 0 % (0-3); EOSINOPHILS % (AUTO) 0 % (0-5); MONOCYTES % (AUTO) 6 % (4-12); NEUTROPHILS % (AUTO) 82 % (40-74)
[2017-01-04 04:04] LABS: INR 2.04 ratio
--- NOTE | 2017-01-04 06:48 | NUR ---
P: Febrile I: remove covers, repositioning, ABX tx E: Day and NOC shift doctors made aware of pt's temperature and increase HR. MAX temperature 102 down to 100.2. Pt talkative with some confusion and forgetfulness. Falling asleep after MN. Denies pain, dyspnea, N/V. Tele AFib, HR teens to 150s, now down to 100-130s. BP moderately high. Incontinent of urine. Son Carmine here to visit and update on father's condition. Son states pt can be very talkative but the increase of talking and confusion is new. He brought in pt's POA and copy taken for chart.
[2017-01-04] MEDS: Insulin GLARgine 100 Unit/mL Syringe SUBQ SCH (08:08)
[2017-01-04] MEDS: Insulin LISPRO 300 Unit/3 mL Inj SUBQ SCH ×4 (08:09→22:03)
[2017-01-04] MEDS: Piperacillin-Tazo 3.375 Gm Inj 3.375 GM in Dextrose 5% Minibag Plus 50 ML IV SCH ×2 (08:11→22:00)
--- NOTE | 2017-01-04 11:08 | CONS ---
[address] [address] CONSULTATION REPORT PATIENT: DARA OLIVAS : 1945 MR#: [id number] ADMIT: 01/03/2017 JOB ID: [id number] DATE OF SERVICE: 01/04/[address] Conde for this timely consult. REASON FOR CONSULTATION: High-grade staphylococcal bacteremia. HISTORY OF PRESENT ILLNESS: The patient is a 71-year-old, retired wounded [place] vet, who subsequently served in the [employer] where he was also wounded in the course of his duties. He currently lives by himself in the [place] area, though has attentive friends and neighbors in the vicinity. He was admitted yesterday afternoon after having been discovered confused and on the floor by friends. The patient is not sure exactly how he ended up there, but he does note that his blood sugars had been "out of control" for a period of time before that, and he was having a great deal of difficulty simply navigating around his bedroom because of profound weakness. He managed to get his clothes off on Wednesday night but then collapsed in an odd position on his bed and he said the right side of his face was actually wedged up against the headboard or wall adjacent to his bed, and he was just too weak to get up or even move his head out of this very awkward position. Eventually friends who checked in on him, found him, and he was taken to the emergency department and subsequently admitted yesterday afternoon. At the time of admission, it was noted in the ED that there were a number of abnormalities including high white count, metabolic acidosis with gap, high procalcitonin and a jump over baseline creatinine. The exact precipitant of his weakness and glucose regulation issues was unclear as the patient denied having any particular fevers or chills. He likewise denied any cough, shortness of breath or chest pain. No gastrointestinal or genitourinary symptoms. He notes that he is completely insensate in both legs and both hands due to his diabetic neuropathy which may have also been exacerbated by [employer] [place] from . He has been treated and followed fairly closely by Dr. Key of Podiatry for a chronic ulcer in the middle of his left plantar forefoot which started after he stepped on some hot coals during a winter bonfire experience. PAST MEDICAL HISTORY: 1. Organic heart disease. a. Atrial fibrillation. b. Coronary artery disease with stents. 2. Type 2 diabetes with severe neuropathy. 3. Recurrent diabetic foot infections which have grown a multiplicity of different organisms over the years and led to a right great toe amputation. 4. Chronic renal insufficiency. 5. Psoriatic arthritis. 6. Gout. 7. Hypothyroidism. SOCIAL HISTORY: The patient neither drinks nor smokes. He lives by himself near [place]. FAMILY HISTORY: Positive for diabetes. Negative for tuberculosis in first-degree relatives. REVIEW OF SYSTEMS: The patient is fairly awake this morning and able to give some review of his symptoms. He he currently denies any headache or acute visual change. He has no sore throat or trouble swallowing. He has chronic pain in his neck which is no worse than normal. He denies any significant cough, shortness of breath or chest pain. Likewise, no nausea, vomiting or diarrhea. No dysuria or change in urine production. He states he has no complaints referable to his lower extremities, but tells me he would not because he feels nothing in his lower extremities. His upper extremities likewise are without symptoms. He denies any acute synovitis or swelling of the joints he is aware of, or any new skin rash that he is aware of. Remainder of the review of systems negative. PHYSICAL EXAMINATION: Reveals a gentleman who was febrile to 39.4 shortly after admission yesterday. He is currently 37.1, pulse is currently 123 and irregular, and it looks like atrial fibrillation on the monitor. Respiratory rate currently 20. He is not wearing any supplemental oxygen. He is saturating well on room air. Blood pressure 127/52, and he does not require any vasopressor agent. The patient's mental status is a little off, but in general he is oriented x3. 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 His examination of the head is notable for some abrasions around the right forehead and eye which he states are from being wedged against the headboard of his bed when he was so weak Wednesday night. His eyes includes some mild hemorrhage on the right side, undoubtedly due to the same pressure phenomena. Otherwise no conjunctivitis. Nose is normal. Sinuses nontender. Oral cavity, no thrush, hairy leukoplakia or pharyngitis. Neck reasonably supple though he notes a considerable chronic neck pain. No adenopathy noted in the neck. His lungs are relatively clear bilaterally with pretty good airflow. Cardiac tones irregular rate and rhythm but no substantial murmur. Abdomen soft and nontender without organomegaly or ascites. He does not have a [place] catheter and does not have suprapubic fullness nor does he have inguinal adenopathy or cervical adenopathy. He has no evidence of synovitis around any major joint. His feet are insensate completely, so with diminished pulses and capillary refill in both lower extremities. His left foot is notable for a 2 cm in diameter shallow mid plantar forefoot ulcer which apparently has been present for months. This ulcer was swabbed and sent for culture. There is a greenish-colored material at the base of it, though it may be due to the treatment applied on a frequent basis including last week by Dr. Key, rather than true purulence. The toes on that left foot appear pretty intact. On the right foot, he has had the right great toe amputated. That amputation site is completely benign. The right foot is swollen to about 50% larger than the left foot, which is of normal size. The right leg all the way up to the knee is swollen somewhat, and the entire area is warm with a couple of early blebs forming over the dorsum of the right foot. Though the leg below the knee on the right has a mild erythematous cast, in addition to this warmth, it is entirely nontender, but the patient tells me he would not feel anything in that foot, even surgery would not disturb it if it was conducted below the knee. In terms of motor strength, the patient is strong, moves all extremities without difficulty. LABORATORIES: Include white count yesterday, 24, today 16,000. He has a left shift both days. Sed rate not performed. Creatinine 1.77. It looks like his baseline is about 1.3 perhaps. LFTs normal. Albumin 2.4. Procalcitonin 19. Urinalysis not performed. Blood cultures from yesterday morning already positive in both sets for staphylococcal-appearing organisms. No growth on plates yet. In reviewing his old cultures, he has had multiple cultures from feet and toes growing MSSA, Stenotrophomonas, Serratia, Enterobacter, Bacteroides fragilis, Klebsiella, and Acinetobacter. IMAGING: Includes a brain CT which is basically negative. Chest x-ray which was clear. A venous ultrasound of that right lower extremity which was without DVT. IMPRESSION: This gentleman has multiple underlying problems including diabetes, renal insufficiency and organic heart disease. He presents basically having been found on the floor by a neighbor, was wedged in an uncomfortable position. He was aware that he was actually stuck in this awkward spot but because of profound weakness, could not help himself or get out of this position. His elevated blood sugars followed by low blood sugars are likely on the basis of sepsis driving alterations in his glucose metabolism. In this case, the septic episode is arising from his right lower extremity. This appears more like a Streptococcal infection but we already have blood cultures, multiple sets, which have rapidly turned positive for Staph, so will be forced to conclude this is a Staphylococcal infection and probably methicillin-sensitive Staphylococcus aureus (MSSA) as that is what he typically grows. We do not yet have a MRSA swab, however, from this admission which would be reassuring if it were negative. RECOMMENDATIONS: 1. I have swabbed the patient's left foot ulcer and sent that for culture. 2. A MRSA screen of the nares will be obtained. 3. Tomorrow, assuming the organisms in the blood are Staph aureus, will need serial blood cultures until negative. 4. Tomorrow, assuming again the blood cultures are Staph aureus, will need a transthoracic echo and probably a transesophageal to follow in a few days. 5. The patient will likely require quite a prolonged course of antibiotics on the order of 2-4 weeks, even if his echos are negative. 6. Will continue to follow this interesting case with you. I thank Dr. Conde for inviting me to participate.
[2017-01-04 11:12] LABS: APPEARANCE,URINE HAZY (CLEAR,HAZY); COLOR,URINE YELLOW (YELLOW); OCCULT BLOOD,URINE MODERATE (NEGATIVE); PH,URINE 5.5 (5.0-8.0); UROBILINOGEN,URINE NORMAL (NORMAL)
--- NOTE | 2017-01-04 11:43 | NUR ---
Wound Care Orders received, patient presents with erythema and fluctuance at dorsum of right foot in region of his toe amputation, suspect infectious process at work here. Spoke with hospitalist, recommended consult Dr Key who takes care of this patient at the wound center. Wound team to cover as needed.
[2017-01-04] MEDS ORDERED: CeFAZolin Inj 2 GM in IV Premix 1 EACH IV SCH (14:00)
[2017-01-04] MEDS ORDERED: Potassium Phos (mEq) Inj 20 MEQ in Dextrose 5% 250 ML IV ONE (16:10)
[2017-01-04] MEDS ORDERED: Sodium Phosphate Inj 20 MEQ in Dextrose 5% 250 ML IV ONE (16:45)
--- NOTE | 2017-01-04 17:31 | NUR ---
Vital signs stable, denies pain or nausea, sleeping intermittently, intermittent confusion. Cont'd A-fib on tele. Son at bedside, conversing with patient.
--- NOTE | 2017-01-04 21:21 | PCM.PNMED ---
Subjective Date of Service Jan 04, 2017 Subjective Overnight Events. Patient spiked a fever to 39 degrees Celsius and was subsequently started on zosyn in addition to ancef for RLE cellulitis. He is resting in bed comfortably and in no acute distress. As he has no sensation in his feet bilaterally from peripheral neuropathy, he is not in any pain from the RLE cellulitis.The patient reports feeling much better than the day prior. He mentions he has short term memory trouble at baseline. The patient denies headache, dizziness, neurological deficits, cough, chest pain, shortness of breath, abdominal pain, nausea, vomiting, constipation, and diarrhea. The patient at baseline has difficulty with ambulation due to peripheral neuropathy in both lower extremities. Exam Vital Signs Vital Sign - Last Date Time Temp Pulse Resp B/P Pulse Ox O2 Delivery O2 Flow Rate FiO2 01/04/17 16:04 37.2 96 22 125/70 94 Room Air Intake and Output 01/03/17 01/03/17 01/04/17 Cumulative From/Thru 15:00 23:00 07:00 01/03/17 11:59 - 01/04/17 06:13 Intake Total 1998 ml 200 ml 3591 ml 5789 ml Output Total 400 ml 400 ml Balance 1998 ml -200 ml 3591 ml 5389 ml Intake Oral 200 ml 550 ml 750 ml IV Total 1998 ml 3041 ml 5039 ml Output Urine Total 400 ml 400 ml # Voids 3 3 # Bowel Movements 1 1 Exam General: No acute distress, well-developed, well-nourished, appropriately interactive HEENT: Normocephalic. External ears without defect. Pupils equal, round, and accommodate. Anicteric sclerae, moist conjunctivae. Neck: Supple with full range of motion. No jugular venous distension. No bruits. No lymphadenopathy appreciated. Cardiovascular: Tachycardic with irregularly irregular rhythm. No murmurs, rubs , or gallops appreciated Pulmonary: Patient has expiratory wheeze, otherwise clear to auscultation bilaterally with no crackles or rhonchi. Normal respiratory effort with no use of accessory muscles. Abdomen: Bowel tones present. Soft, nontender, nondistended. Extremities: Patient has RLE edema. No clubbing or cyanosis. Skin: Right foot erythematous, hot, edematous all the way up to about the knee with fluctuating mass just proximal to 1st digit. Left ball of foot with circular ~1 inch ulcer Neurological: Cranial nerves II - XII intact. Normal muscle strength, tone, and bulk. Patient has no sensation in bilateral LE. Psychiatric: Normal mood and affect. Alert and oriented to person, place, and time. Lab and Diagnostics Result Diagram: 01/04/17 0305 01/04/17 0305 X-Rays, CTs and MRIs CT brain 1. No acute intracranial abnormalities. 2. Cerebral volume loss and chronic microvascular ischemic change Dictated by: Milton Bardales M.D. on 01/03/2017 at 12:54 Chest x-ray IMPRESSION: No acute cardiopulmonary disease. Dictated by: Milton Bardales M.D. on 01/03/2017 at 13:55 Venous duplex IMPRESSION: No deep venous thrombosis in the right lower extremity. Dictated by: Milton Bardales M.D. on 01/03/2017 at 12:40 Cardiac Echo Impressions Last echo 04/06/16 Interpretation Summary Left ventricular wall thickness is mild-moderately increased. Assessment of diastolic parameters indicates a relaxation abnormality of the left ventricle, consistent with normal filling pressures. The right ventricle is normal in size and function. Pulmonary artery pressures cannot be estimated because of the lack of a measurable TR jet velocity. Both atria are normal in size. There is no significant valvular heart disease. The aortic root is normal size. The aortic arch is normal in size. Assessment & Plan 71-year-old male with recent amputation of his right big toe and insulin- dependent diabetes who presents after being found down, with hypoglycemia and increased erythema of the right lower extremity consistent with cellulitis. Severe Sepsis second to right lower extremity cellulitis, present on admission, ongoing - Leukocytosis improved from 24.3 to 16.3, tachycardia, and tachypnea - RLE edema and erythema from knee down to toes. - Likely causing elevated glucose that led to hypoglycemia below - Recent cultures in september show MSSA pansensitive; blood cultures positive for staph. Nasal MRSA swab negative. - Continued Ancef started on 01/03/17 and zosyn 01/04/17 - Follow labs; ordered CBC, BMP and repeat blood cultures for tomorrow AM Anion gap metabolic acidosis with lactic acidosis; present on admission; Improved -Anion gap improved from 20 to 13, lactic acid of 1.0 down from 2.2. - Continue IV Fluids as patient has limited PO fluid intake. Type 2 Diabetes with peripheral neuropathy, diabetic foot ulcer, Nephropathy and no proliferative retinopathy; present on admission; ongoing - Better controlled with A1c 6.1; it was recently 9.7 - medium correction Lispro algorithm - A1c Pending - Lantus 10 units nightly - Hold Victoza sq Acute on chronic kidney injury; present on admission; ongoing - Baseline Cr 1.3-1.7. Due to Hypertensive nephrosclerosis and Diabetic nephropathy - avoid nephrotoxic insults - monitor urine output - 2-3L on admission - Continue NS 125ml/hr Hypertension; present on admission; ongoing - Losartan 50 mg daily - Amlodipine 10 mg daily - Lasix 20 mg daily Paroxysmal Atrial fibrillation on Coumadin; present on admission; stable - monitor on telemetry - continue rate control with Carvedilol - Continue warfarin - Daily INR Hyperlipidemia - continue Atorvastatin 40 mg daily Acquired hypothyroidism - continue Synthroid 75 mcg daily Hypoglycemia, due to noncompliance; present on admission; Resolved - Pt has been without his glucometer; when obtained reading was "very high" likely due to above infection - Patient overdosed on Lantus, taking 2-3 times more than prescribed - Continue to monitor glucose Mild troponin elevation; present on admission; Resolved -Likely due to acute kidney injury -Now wnl Acetaminophen for mild pain when necessary. Bowel regimen Senna and MiraLAX scheduled and PRN. Zofran when necessary for nausea and vomiting. SCDs in place. High-risk medications: Warfarin Pain Evaluation: Adequate Pain Control VTE Mechanical Devices: Intermittant Pneumatic CD Attending Statement The patient was seen and examined together with Dr. Andre on 01/04/2017 and I agree with the history, exam and plan as outlined in the note above. . Vern Andre DO Jan 04, 2017 20:13 William Conde MD Jan 08, 2017 06:47
[2017-01-04] MEDS: HYDROcodone-APAP 5-325 mg Tablet PO PRN (21:59)
[2017-01-05] VITALS (15 sets, daily range): BP systolic 99–130; BP diastolic 47–82; PULSE 72–142; RESP 15–29; O2SAT 91–99
[2017-01-05] MEDS: Sodium Chloride LOK Flush 10 mL Syringe IVFLUSH SCH ×4 (00:30→21:39)
[2017-01-05] MEDS: CeFAZolin Inj 2 GM in IV Premix 1 EACH IV SCH ×2 (02:03→15:07)
[2017-01-05 06:15] LABS: BASOPHILS % (AUTO) 0.1 % (0-3); EOSINOPHILS % (AUTO) 0.4 % (0-5); MONOCYTES % (AUTO) 7.3 % (4-12); Mean Corpuscular Hemoglobin 29.5 pg (27.0-35.0); Mean Corpuscular Volume 92.1 fL (81-100); NEUTROPHILS % (AUTO) 84.1 % (40-74); Platelet Count 171 bil/L (150-400)
[2017-01-05 06:47] LABS: INR 2.24 ratio
[2017-01-05] MEDS: 0.9% Sodium Chloride 1,000 ML IV SCH ×2 (07:42→21:38)
--- NOTE | 2017-01-05 07:43 | NUR ---
Pain/I&D/Tele Pt reports 5/10 pain in R foot. at bedside to perform I&D of abscess in R foot. Per MD, ~50cc of mostly purulent fluid drained with 1/4in packing replaced. Culture sent to lab. ordered for NPO after midnight for debriding sometime today. Also received orders for vicodin 5/325 q6h for pain. Pt reports this regimen works and tolerated well. Pt tele was afib 80s-150s even when asleep. SpO2 dropped to low 90s while asleep. 2L NC placed on pt in hopes it might lower HR. It did not lower HR. Pt denies CP, palpitations, SOB. Per museum exhibit technician, pt HR elevated last night as well (worse than today). Will continue to monitor. Care ongoing
[2017-01-05] MEDS: Piperacillin-Tazo 3.375 Gm Inj 3.375 GM in Dextrose 5% Minibag Plus 50 ML IV SCH ×2 (08:02→21:37)
[2017-01-05] MEDS: Insulin LISPRO 300 Unit/3 mL Inj SUBQ SCH ×4 (08:02→21:38)
[2017-01-05] MEDS: Insulin GLARgine 100 Unit/mL Syringe SUBQ SCH (08:04)
--- NOTE | 2017-01-05 09:20 | PCM.HPANE ---
Patient Data Date of Service: Jan 05, 2017 Surgeon Admitting Provider:William Conde MD Attending Provider:William Conde MD Primary Care Physician:Karlee Kaplan MD Other Provider: Reason for Visit Hypoglycemia, Mult Falls, Rle Cellulitis Ht/WT & BMI Height (Feet): 5 Height (Inches): 8.00 Weight (Kilograms): 95.000 Body Mass Index 28.10 Allergies Coded Allergies: Pentazocine Lactate (Verified Allergy, Unknown, 09/09/15) vancomycin (Unverified Allergy, Unknown, Hives, 09/09/15) rash and blisters hydrocortisone (Verified Adverse Reaction, Unknown, leg swelling, 11/07/16) Past Anesthesia History Anesthesia History: Denies:: Abnormal Airway, Anesthesia Reactions (pt states he hard to wake up post anesthesia), Difficult Intubation, Fam Anesthesia Reaction, Fam Malignant Hypertherm, Malignant Hyperthermia Diabetes History Hx Diabetes?: Yes (insulin dependent) Type of Diabetes: Type II Glycemic Control: Insulin Dependent Current Bedside Blood Glucose: 205 MRSA MRSA: No Medications Blood Thinner: Aspirin, Coumadin Hypertension Medication: Yes Home Meds Incl Beta Anette: No Active Scripts Hydrocodone-Acetaminophen 5-325 mg 1 Each Tablet1 Tablet PO Q4H PRN For Pain # 30 TABLET Ref 0 Prov:Camryn Kaufman DO 11/10/16 Spironolactone 25 Mg Rahnef31.5 Mg PO DAILY #14 TABLET Ref 0 Prov:Camryn Kaufman DO 11/10/16 Polyethylene Glycol 3350 (Miralax)17 Gm Powd.pack17 Gm PO DAILY PRN For Constipation #14 Prov:Camryn Kaufman DO 11/10/16 Losartan Potassium (Cozaar)25 Mg Ntbxzc26 Mg PO DAILY #14 TABLET Prov:Camryn Kaufman DO 11/10/16 Cyclobenzaprine 10 Mg Jemqtg49 Mg PO TID PRN For Spasm #20 TABLET Prov:Camryn Kaufman DO 11/10/16 Reported Medications Liraglutide (Victoza 2-Vitaliy)0.6 Mg/0.1 Ml Pen.injctr1.2 Mg SUBQ DAILY #6 11/07/16 Warfarin Sodium 2.5 Mg Tablet5 Mg PO DAILY 30 Days Ref 0 11/07/16 Diclofenac Gel (Voltaren Gel)100 Gm Tube1 Applic TOPICAL DIRECTED PRN For Pain #1 TUBE 11/07/16 Cyanocobalamin (Vitamin B-12) (Vitamin B-12)1,000 Mcg Tab.subl1,000 Mcg SL DAILY 11/07/16 Insulin Glargine (Lantus U100 Insulin Vial)100 Unit/Ml Vial22 Unit SUBQ HS #1 VIAL Ref 0 11/07/16 Iron Amino Acid Chelate/B12/FA (Ferractiv Iron 27 mg Formula)1 Each Capsule2 Each PO DAILY 11/07/16 Cetirizine HCl (Zyrtec)10 Mg Tzovxvo98 Mg PO DAILY PRN allergies #30 CAPSULE Ref 0 07/17/15 Insulin Aspart (NovoLOG U100 Insulin Vial)100 U/Ml U5-14 Unit SUBQ TID #1 VIAL Ref 0 07/17/15 Meclizine (Bonine)25 Mg Tab.chew25 Mg PO DAILY 07/17/15 Furosemide (Lasix)40 Mg Lmdlpy61 Mg PO DAILY 30 Days Ref 0 07/17/15 Levothyroxine 75 Mcg Iugjgh58 Mcg PO DAILY Ref 0 07/17/15 Gabapentin 300 Mg Bigqzho234 Mg PO QAM Ref 0 07/17/15 Multivitamin/Iron/Folic Acid (Century Tablet)1 Each Tablet1 Each PO DAILY 07/17/15 Carvedilol 12.5 Mg Wcajxm17.5 Mg PO DAILY Ref 0 07/17/15 Atorvastatin (Lipitor)40 Mg Lfmqss19 Mg PO DAILY Ref 0 07/17/15 Amlodipine 10 Mg Yjnzqh55 Mg PO DAILY Ref 0 07/17/15 Allopurinol 300 Mg Ejmcmx445 Mg PO DAILY Ref 0 07/17/15 Insulin Glargine (Lantus U100 Insulin Vial)100 Unit/Ml Vial32 Unit SUBQ QAM #1 VIAL Ref 0 07/17/15 Discontinued Reported Medications Losartan Potassium 25 Mg Kcstxz90 Mg PO DAILY 07/17/15 History History of ENT Problems?: Yes HEENT History: Positive for:: Cataracts (left eye cataract; right eye cataract removed) Sinus Problem (Seasonal grass allergies) Denies:: Dysphagia Denture Type: None Teeth Condition: Broken Teeth Missing Teeth Hx of Heart Problems?: Yes Cardiovascular History: Positive for:: Hypertension Irregular Heartbeat (remote history noted in a recovery post foot surgery,per patient) Denies:: Cardiac Surgery Chest Pain Congestive Heart Failure Edema Heart Murmur Pacemaker Thrombophlebitis Hx of Respiratory Problem?: No Respiratory History: Denies:: Asthma COPD Chest Surgery Dyspnea Emphysema Hemoptysis Oxygen Administration Pneumonia Tuberculosis Use of C-PAP Machine Hx Neurologic Problems?: Yes Neurological History: Positive for:: CVA (HX 3-4months ago had difficulty speaking - MRI small infarction - no TX) Dizziness (more balance issues due to neuropathy and a weak Left Knee) Peripheral Neuropathy Denies:: Alzheimer's Disease Dementia Headaches Multiple Sclerosis Parkinson's Disease Seizures TIA Other Neurological Pertinent: hx TIA Hx of GI Problems?: Yes Hx of Problems?: No HX of Peritoneal Dialysis: No Skin History: Positive for:: History Skin Disorders? 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 Blood Transfuse Reaction Blood Transfusions Hx Diabetes: Yes (insulin dependent)Bedside Blood Glucose: 205 Hx Alcohol Use: NoHx Substance Use: No Smoking Status: Never Smoker Have You Smoked inLast 12 mo: No Stop/Bang Treated for Sleep Apnea?: No Do You Have a CPAP Machine?: No S-Snoring: Do You Snore Loudly: No T-Tired: feel tired, fatigued: No O-Obsered: Observed not breath: No P-Blood Pressure: treated: Yes B- Body Mass Index > 35 kg/m2: No A- Age over 50: Yes N- Neck Large Circumference: No G- Gender Male: Yes LUDA Total Score: 2 LUDA Risk Assessment: Low Risk, <3 Yes LUDA Category 1: Yes Risk Assessment Category Category 1A: Patient has history of documented sleep apnea, and HAS NOT received any narcotic, sedative or anesthesia administration during this stay. Category 1B: Patient has history of documented sleep apnea, and HAS received any narcotic , sedative or anesthesia administration during this stay Category 2: Patient has SUSPECTED Obstructive Sleep Apnea, and HAS received any narcotic , sedative or anesthesia administration during this stay. Category 3: Patient has SUSPECTED Obstructive Sleep Apnea and HAS NOT received narcotic, sedative or anesthesia administration during this stay. Category 4: Outpatient in Procedural Areas with known sleep apnea or who screen positive for High Risk via the STOP/BANG questionnaire. Exam Exam Vital Signs Vital Signs Date Time Temp Pulse Resp B/P Pulse Ox O2 Delivery O2 Flow Rate FiO2 01/05/17 03:34 37.2 142 18 110/59 91 Room Air General Appearance: Alert, Oriented X3, Cooperative, No Acute Distress HEENT/AIRWAY: MP 2 Lungs: Clear to Auscultation, Normal Air Movement Heart: Exam Unremarkable, Regular Rate/Rhythm, No Murmurs/Rubs/Gallops Meds/Labs/Diagnostics Admission Meds Current Medications Warfarin Sodium 5 mg 5 mg DAILY@17 ONCE PO Last administered on 01/04/17 19: 17; Start 01/04/17 at 19:17; Stop 01/04/17 at 19:18; Status DC Cefazolin Sodium/ Dextrose 2 gm/ Premix 100 ml @ 100 mls/hr Q12H IV Last administered on 01/04/17 14:21; Start 01/04/17 at 14:00; Stop 01/04/17 at 15:24 ; Status DC Cefazolin Sodium/ Dextrose 2 gm/ Premix 50 ml @ 50 mls/hr Q12H IV Last administered on 01/05/17 02:03; Start 01/05/17 at 02:00 Sodium Phosphate/ Dextrose/Water (Sodium Phosphate Inj/D5W) 255 ml @ 42.5 mls/ hr ONCE ONCE IV Last administered on 01/04/17 17:23; Start 01/04/17 at 16:45 ; Stop 01/04/17 at 22:44; Status DC Bedside Blood Glucose: 205 Labs Test 01/03/17 12:05 01/03/17 18:15 01/04/17 00:52 01/04/17 03:05 Magnesium Level 2.3mg/dL (1.6-2.6) Hemoglobin A1c 8.9% (4.8-5.6) Troponin T < 0.010ug/L (0.0-0.011) Procalcitonin 19.20ng/mL (0.00-0.08) Lactic Acid Level 1.0mmol/L (0.4-2.0) Band Neutrophils % 2% (1-5) Hematology Comments Total Bilirubin 0.7mg/dL (0.0-1.2) Aspartate Amino Transf (AST/SGOT) 45U/L (0-50) Alanine Aminotransferase (ALT/SGPT) 17U/L (0-44) Alkaline Phosphatase 78U/L (25-160) Total Protein 5.7g/dL (6.4-8.4) Albumin 2.4g/dL (3.4-5.0) Test 01/04/17 10:43 01/05/17 05:35 Urine Color Yellow (YELLOW) Urine Appearance Hazy (CLEAR,HAZY) Urine pH 5.5 (5.0-8.0) Urine Specific [place] 1.020 (1.003-1.035) Urine Protein 100mg/dL (NEG,TRACE) Urine Glucose (UA) Negativemg/dL (NEGATIVE) Urine Ketones Negativemg/dL (NEGATIVE) Urine Occult Blood Moderate (NEGATIVE) Urine Nitrite Negative (NEGATIVE) Urine Bilirubin Negative (NEGATIVE) Urine Urobilinogen Normalmg/dL (NORMAL) Urine Leukocyte Esterase Negative (NEGATIVE) Urine RBC 0-2/hpf (0-2) Urine WBC 0-5/hpf (0-5) Urine Epithelial Cells Occasional/hpf (NONE-MOD) Urine Crystals Amorphous urates (NONE Urine Bacteria None/hpf (NONE-FEW) Urine Hyaline Casts None/lpf (NONE) Urine Granular Casts None seen (NONE SEEN) Urine Waxy Casts None seen (NONE SEEN) Urine Red Blood Cell Casts None seen (NONE SEEN) Urine White Blood Cell Casts None seen (NONE SEEN) Urine Mucus None seen (None Seen) Urine Trichomonas None seen (NONE SEEN) Urine Yeast None (NONE SEEN) Urinalysis Comment None Urine Culture Reflexed Not indicated White Blood Count 14.8th/mm3 (3.8-10.1) Red Blood Count 3.29mil/mm3 (4.40-5.80) Hemoglobin 9.7g/dL (13.8-17.2) Hematocrit 30.3% (41.0-50.0) Mean Corpuscular Volume 92.1fL (81-100) Mean Corpuscular Hemoglobin 29.5pg (27.0-35.0) Mean Corpuscular Hemoglobin Concent 32.0% (32.0-37.0) Red Cell Distribution Width 15.8% (12.3-15.4) Platelet Count 171bil/L (150-400) Neutrophils (%) (Auto) 84.1% (40-74) Lymphocytes (%) (Auto) 7.4% (14-46) Monocytes (%) (Auto) 7.3% (4-12) Eosinophils (%) (Auto) 0.4% (0-5) Basophils (%) (Auto) 0.1% (0-3) Prothrombin Time 24.4sec (8.1-12.5) Prothromb Time International Ratio 2.24ratio Sodium Level 133mEq/L (134-144) Potassium Level 4.8mEq/L (3.5-5.2) Chloride Level 101mEq/L (97-108) Carbon Dioxide Level 18mmol/L (18-29) Blood Urea Nitrogen 48mg/dL (8-27) Creatinine 2.02mg/dL (0.76-1.27) Estimat Glomerular Filtration Rate 35mL/min (>59) Glucose Level 215mg/dL (60-99) Calcium Level 7.5mg/dL (8.5-10.1) Phosphorus Level 3.0mg/dL (2.5-4.9) Plan Impression Patient chart reviewed, patient interviewed and anesthestic plan with risks, benefits, and alternatives discussed, and informed consent obtained. NPO per Anesth. Guidelines: Yes ASA Physical Status: ASA3 Severe Disease Anesthetic Plan: MAC Bene/Risks/Altern/Consents: Yes HP Complete Prior to Induction: Yes Perez Levine MD Jan 05, 2017 09:20
--- NOTE | 2017-01-05 09:31 | CONS ---
[address] [address] CONSULTATION REPORT PATIENT: DARA OLIVAS : 1945 MR#: [id number] ADMIT: 01/03/2017 JOB ID: [id number] DATE OF SERVICE: 01/04/2017 HISTORY: The patient is asked to be seen for an infected right foot. He states that the foot became red and swollen approximately six days ago. He did not mention it to anybody as he thought it was going to get better. His blood sugars have been high; however, his glucose machine was not working and he was unable to track how high or low his blood sugars were. He does have intermittent pain in the right foot. It does feel full. Home Health was coming out to do dressing changes on the left foot. He has a history of uncontrolled diabetes and peripheral neuropathy. He has had diabetic neuropathic ulcerations in the past and has undergone amputation of the right great toe. Recently, he developed an ulcer on the right second toe. PAST MEDICAL HISTORY: Significant for insulin-dependent diabetes, hypertension, atrial fibrillation, cervical stenosis, coronary artery disease status post stenting, history of diabetic neuropathic ulceration. He is status post right toe amputation, status post cardiac catheterization with angioplasty and stent placement. HOME MEDICATIONS: 1. Allopurinol 300 mg tablets 1-1/2 tablets daily. 2. Amlodipine 10 mg tablets, 1 p.o. daily. 3. Lipitor 40 mg tablets 1 tablet daily. 4. Carvedilol 12.5 mg p.o. daily. 5. Vitamin B12 at 1000 mcg sublingual daily. 6. Lasix 40 mg daily. 7. Gabapentin 300 mg 2 capsules q.a.m. 8. NovoLog insulin at 100 units/ml 5-14 units subcu t.i.d. 9. Lantus 100 units/ml 32 units subcu in the morning and 22 units at night. 10. Ferractiv iron 27 mg capsule 2 capsules daily. 11. Levothyroxine 75 mcg p.o. daily. 12. Victoza 1.2 mg subcu daily. 13. Losartan 25 mg p.o. daily. 14. Cozaar 50 mg p.o. daily. 15. Bonine 25 mg p.o. daily. 16. Multivitamin 1 tablet daily. 17. Spironolactone 25 mg 1-1/2 tablet daily. 18. Warfarin 2.5 mg 2 tablets daily. 19. Zyrtec 10 mg p.o. daily p.r.n. allergies. 20. Cyclobenzaprine 10 mg p.o. t.i.d. p.r.n. for spasm. 21. Voltaren gel apply as directed. 22. Hydrocodone/acetaminophen 5/325, one tablet p.o. q.4 h. p.r.n. pain. 23. MiraLAX 7 g p.o. daily p.r.n. for constipation. ALLERGIES: 1. PENTAZOCINE LACTATE. 2. VANCOMYCIN. 3. HYDROCORTISONE. 4. LEVAQUIN. SOCIAL HISTORY: The patient does not smoke or drink alcohol. He lives at home alone at [facility]. PHYSICAL EXAMINATION: Blood pressure 132/69, pulse 103, respiratory rate 22, temperature 36.8, pulse oximetry 93% on room air. Lower extremity exam: Ulceration dorsal 2nd proximal interphalangeal joint which measures approximately 0.4 cm in diameter by 0.1 cm in depth. There is erythema and swelling of the 2nd right toe and the entire dorsal midfoot area. There is fluctuance noted at the 2nd metatarsal plantar joint extending across the 1st metatarsal plantar joint and dorsally across to the cuneiform joint. There is yellow discoloration noted across the second metatarsal plantar joint with overlying hyperkeratosis and scaling skin. There is no erythema or swelling noted of plantar right foot. He has pain with palpation of the fluctuant area. Dorsalis pedis and posterior tibialis arteries are nonpalpable. LABORATORY DATA: WBC 16.3, hemoglobin 10.7, hematocrit 32.4, platelets 151, neutrophils 82, lymphocytes 10. Sodium 136, potassium 4.9, chloride 103, carbon dioxide 19, BUN 36, creatinine 1.77. Estimated GFR of 41. Glucose 161, calcium 7.8, total bilirubin 0.7, AST of 45, ALT 715, alkaline phosphatase 78, total protein 5.7, albumin 2.4. PT 22.1, INR 2.04. Microbiology: Blood culture from January 03, 2017 shows gram-positive cocci most probable Staph aureus. The venous ultrasound duplex bilaterally, no deep vein thrombosis in the right lower extremity. ASSESSMENT AND PLAN: 1. Cellulitis with abscess, right foot. I incised and drained approximately 50 cc of pustular discharge with a stab incision over the dorsal first metatarsophalangeal joint. After drainage of the pus, I obtained a sample for culture and sensitivity by inserting a Culturette tube into the subcutaneous tissue of the area over the first metatarsophalangeal joint. I then copiously flushed the area using a 3 cc syringe using a 1-1 mixture of hydrogen peroxide and sterile normal saline. The area was then packed using 1/4-inch Iodoform gauze. It was noted that the tissues overlying the second metatarsal plantar joint was purple discolored. The area around the 1st metatarsal plantar joint tunnel to the first metatarsal bone, as well as the plantar metatarsophalangeal joint and across laterally to the 2nd MPJ. I was also able to express pus from the dorsal aspect of the midfoot area. The remaining dressing consisted of a 4 x 4 gauze, and Kerlix. The patient tolerated the procedure well. Hemostasis was achieved with pressure. I also ordered an x-ray to look for bone changes consistent with osteomyelitis. The patient will need a more extensive debridement tomorrow in the operating room. I made the patient n.p.o. after midnight and I will call the operating room tomorrow to schedule a surgical time. The patient may require amputation of the second toe, as well as extensive debridement of any necrotic tissue around the first metatarsophalangeal joint and dorsal mid foot area. The patient's antibiotic coverage is being managed by Dr. Edwards. 2. Diabetic neuropathic ulceration, right second toe. This may be the nidus for his infection, as well as his elevated blood sugars which have been uncontrolled in the past. Most of the soft tissue damage appears to be around the 2nd metatarsophalangeal joint. 3. Insulin dependent diabetes with peripheral neuropathy. The patient has a history of poor blood sugar control. He has been both hyperglycemic, as well as hypoglycemic when he has been [facility]. It has been a challenge for him to control his blood sugars in the past. 4. For QUINOLONE allergy, the patient was put on a course of LEVAQUIN and developed a rash. This should be noted in his chart. [facility]
[2017-01-05] MEDS ORDERED: 0.9% Sodium Chloride 250 ML ONE (09:54)
--- NOTE | 2017-01-05 10:46 | PROG NOTE ---
[address] [address] PROGRESS NOTE PATIENT: DARA OLIVAS : 1945 MR#: [id number] ADMIT: 01/03/2017 JOB ID: [id number] DATE: 01/05/2017 INFECTIOUS DISEASE FOLLOW UP NOTE: REASON FOR FOLLOWUP: Staph aureus bacteremia, right foot and complicated right diabetic foot infection. INTERVAL HISTORY: Overnight, the patient reports he has gradually been feeling better. He has no fevers, no chills. No significant shortness of breath, nausea, vomiting or diarrhea. His legs basically up to the groin are insensate so he has no appreciation of the ongoing inflammatory events in either of his feet nor even of the recent debridement of his right foot. It is notable that his right foot was debrided and an abscess apparently incised and drained but I do not see an operative report yet regarding this drainage of the abscess on the right foot. This was apparently done yesterday afternoon. PHYSICAL EXAMINATION: Reveals an afebrile gentleman, temperature 37.2, pulse 110, AFib. Respiratory rate 21, blood pressure 130/62, saturating well on room air. No acute distress. He is alert and oriented. Oral cavity negative. Lungs quite clear today. Cardiac tones: Irregular rate and rhythm without new murmur. Abdomen benign. The right foot is wrapped in a postoperative towel dressing and there is some bloody drainage around the area of the previously amputated right great toe on the medial right forefoot. The left foot continues to look uninfected though there is an ulcer which is quite clean now on the base of the left foot underneath about the second metatarsal head. The entire right lower extremity below the knee is moderately erythematous and swollen though nontender in this insensate gentleman. LABORATORIES: Include white count 14,800, platelet count 171. Creatinine 2.02. Urinalysis without white cells. Blood cultures are positive from January 03, multiple bottles positive for Staph aureus. Susceptibilities are pending. MRSA screen of the nares is pending. A swab of the left foot done yesterday is pending and follow up blood cultures are pending. An x-ray of the right foot has been done. The interpretation from the radiologist is pending. By my eye there is inflammation and perhaps even some air around the 1st metatarsal head, but again I am not by any means a radiologist, but this does suggest at least possible infection at that site. In addition there may be some irregularity of the bone. We await additional input from the radiologist as well as Podiatry. 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 He is now much improved. We do have positive blood cultures which I suspect have arisen from the abscess on his right medial foot which may or may not involve osteomyelitis. In addition he has a chronic ulcer on his left plantar foot which appears relatively uninfected. At this point, will need serial blood cultures, a transthoracic and perhaps a transesophageal echo and a decision about whether or not he has osteo on the right foot. RECOMMENDATIONS: 1. Will continue with Zosyn. 2. There is no reason to continue Zosyn and Ancef as Ancef adds nothing to the coverage of Zosyn at this point and we can safely stop it. 3. Will continue to closely follow this complex patient with you.
--- NOTE | 2017-01-05 11:09 | DRSVH ---
PROCEDURE: X-RAY RIGHT FOOT COMPLETE, MINIMUM THREE VIEWS ([id number]) INDICATIONS: cellulitis right foot TECHNIQUE: 3 views of the foot were acquired. COMPARISON: [facility], CR, XR FOOT 3VW RT, 12/16/2015, 15:24. FINDINGS: Bones: Interval increase in cortical regularity and lucency involving the lateral aspect of the first metatarsal head with soft tissue swelling and gas formation. Prior amputation of the first digit. Soft tissues: No tibiotalar joint effusion. Achilles tendon appears normal. Gas also present along the dorsal aspect of the foot and ankle seen on the lateral view Vascular calcifications indicate at herosclerosis. IMPRESSION: Worsening osteomyelitis involving the first metatarsal head with gas within the adjacent soft tissues as well as throughout the dorsal aspect of the soft tissues. Although the gas may be related to recent instrumentation, developing necrotizing fasciitis cannot be excluded and clinical correlation and followup is recommended. Dr. Key given results at 1108 hours on 01/05/2017. Dictated by: Sung VELAZCO Interpreted: Rhona Paige MD on 01/05/2017 at 10:56 Transcribed by: PAT on 01/05/2017 at 11:08 Approved by: Rhona Paige M.D. on 01/05/2017 at 15:25
--- NOTE | 2017-01-05 12:05 | NUR ---
Off unit: Pt off unit to OR for planned debridement of foot wound, VSS, 1st unit of FFP almost completed.
[2017-01-05] MEDS ORDERED: EPHEDrine Sulfate 50 mg/mL Inj IVPUSH PRN (12:20)
[2017-01-05] MEDS ORDERED: HYDROmorphone 1 mg/mL Inj IVPUSH PRN (12:20)
[2017-01-05] MEDS ORDERED: Lactated Ringer's 1,000 ML IV SCH (12:20)
[2017-01-05] MEDS ORDERED: Dexamethasone 4 mg/mL Inj IVPUSH PRN (12:20)
[2017-01-05] MEDS ORDERED: Lactated Ringer's 500 ML IV PRN (12:20)
[2017-01-05] MEDS ORDERED: fentaNYL-PF 50 mCg/mL 2 mL Inj IVPUSH PRN (12:20)
[2017-01-05] MEDS ORDERED: Ondansetron 2 mg/mL 2 mL Inj IVPUSH PRN (12:20)
[2017-01-05] MEDS ORDERED: MetoCLOpramide 5 mg/mL 2 mL Inj IVPUSH PRN (12:20)
[2017-01-05] MEDS ORDERED: Phenylephrine 10,000 mCg/mL Inj IVPUSH PRN (12:20)
[2017-01-05] MEDS ORDERED: 0.9% Sodium Chloride 250 ML IV ONE (12:22)
--- NOTE | 2017-01-05 12:22 | DRSVH ---
[facility] [address] [place] [address] Echocardiogram Report Name: DARA OLIVAS Date : 01/05/2017 Height: 68 in Hospital Exam Location: [facility] Weight: 209 lb Gender: Male BSA: 2.1 m2 : 1945 Age: 71 yrs BP: 110/59 m mHg Reason For Study: Positive blood cultures for staph Performed By: Jazmin Bunch Referring Physician: GIULIA LAMBERT Interpretation Summary The study quality was technically difficult. A contrast injection of Definity was performed to improve assessment of LV function. Left ventricular ejection fraction is estimated to be 50%. Apical hypokinesis is suspected, LVEF is slightly lower on this exam. The right ventricle is normal size. Right ventricular systolic function is mildly reduced. The right ventricular systolic pressure is estimated at 25 mmHg assuming a right atrial pressure of 8 mm Hg. Procedure: A two-dimensional transthoracic echocardiogram with color flow and Doppler was performed. The study quality was technically difficult. A contrast injection of Definity was performed to improve assessment of LV function. The heart rate ranged between 76-115 bpm during the study. Left Ventricle: The left ventricle is grossly normal size. Left ventricular ejection fraction is estimated to be 50%. Apical hypokinesis is suspected, LVEF is slightly lower on this exam. Right Ventricle: The right ventricle is normal size. Right ventricular systolic function is mildly reduced. Atria: The left atrium is mildly dilated. Right atrial size is normal. The interatrial septum is intact with no evidence for an atrial septal defect. Mitral Valve: The mitral valve leaflets appear mildly thickened, but open well. There is trace mitral regurgitation. Aortic Valve: The aortic valve is trileaflet. The aortic valve opens well. There is no aortic regurgitation. Tricuspid Valve: The tricuspid valve leaflets are thin and pliable. There is trace tricuspid regurgitation. The right ventricular systolic pressure is estimated at 25 mmHg assuming a right atrial pressure of 8 mm Hg. Pulmonic Valve: The pulmonic valve is not well visualized. There is trace pulmonic regurgitation. Great Vessels: The aortic root is mildly dilated. The ascending aorta is normal in size. The IVC is of normal diameter and collapses less than 50% with a sniff. This suggests a right atrial pressure of 8 mm Hg. Pericardium/ Pleura There is no pericardial effusion. There is an anterior echo-free space consistent with a fat pad. There is no pleural effusion. MMode/2D Measurements & Calculations RA long axis LVOT diam: 2.6 cm TAPSE LA A2 area: 20.1 cm Ao root diam: 4.0 cm : 1.4 cm LA A4 area: 23.6 cm asc Aorta Diam LA length (vol): 5.5 cmRA area: 11.9 cm LA vol: 73.7 ml RA vol: 27.0 ml LA vol index RA : 13.0 ml/m2 IVC diam: 2.7 cm Doppler Measurements & Calculations Ao V2 max TR max [place]: 210.3 cm/secAo V2 mean LV V1 max PG : 98.7 cm/sec TR max P.7 mmHg : 76.6 cm/sec Ao max PG PA V2 max: 58.0 cm/sec Ao V2 VTI LV V1 VTI : 3.9 mmHg PA mean P.88 mmHg : 14.8 cm Ao mean PG ONELIA(V,D): 4.1 cm2 LVOT Max [place] : 76.1 cm/sec ONELIA(I,D): 4.1 cm sev ratio PA V2 mean ONELIA indexed to BSA : 45.0 cm/sec (cm^2/m^2): 2.0 PA pr(Accel) : 26.3 mmHg Electronically signed by: Raj Eagle on Reading Physician:01/05/2017 12:21 PM
[2017-01-05] MEDS ORDERED: Lidocaine PF 1% 30 mL Inj INJ ONE (12:40)
[2017-01-05] MEDS ORDERED: Bupivacaine-MPF 0.5% 30 mL Inj INJ ONE (12:40)
--- NOTE | 2017-01-05 14:32 | PCM.ANEP1 ---
Post Anesthesia PACU Phase 1 Assessment Date of Service: Jan 05, 2017 Vital Signs Vital Signs Date Time Temp Pulse Resp B/P Pulse Ox O2 Delivery O2 Flow Rate FiO2 01/05/17 12:35 79 18 104/60 99 Nasal Cannula 3.00 01/05/17 10:35 37.1 91 18 99/49 01/05/17 10:21 92 01/05/17 10:03 37.2 91 18 100/55 01/05/17 08:30 Supplement Oxygen 01/05/17 08:00 37.2 110 21 130/62 97 Nasal Cannula 1.00 Anesthetic Administered: MAC Level of Alertness: Awake, talking MICHELLE's with Equal Strength: Yes Pain: No Pain Scale Score: 5 Nausea or Vomiting: No CV Function & Hydration Stable: Yes Airway Device: Oxygen Delivery: Nasal Cannula Lungs: Clear to Auscultation, Normal Air Movement PACU Phase 2 Assessment Complications: No Follow up Care: No Patient Instructions Provided: Yes Perez Levine MD Jan 05, 2017 14:32
--- NOTE | 2017-01-05 14:56 | PCM.PHAPRO ---
Progress Found down WARFARIN Indication: AFib Home dose 5mg/day Important hx: T2DM, HTN, CAD Recent dosing Date Jan 04Jan 05Jan 06Jan 07Jan 08 INR 1.7 2.24 Warf Dose 5 hold o/ Surgery today for debridement of diabetic foot, FFP given a/p Considering sharp INR bump, surgical debridement and CV score of 4, will give reduced dose today and anticipate INR to remain > 2 tomorrow. Richie Cordoba Pharm D Jan 05, 2017 14:56
[2017-01-05] MEDS: HYDROcodone-APAP 5-325 mg Tablet PO PRN (15:55)
--- NOTE | 2017-01-05 16:12 | NUR ---
Social Work Note: Screen Note Data& Assessment: EMR reviewed. Mark Carter is a 71 year old male admitted on 01/03/2017 for hypoglycemia and multiple falls. Pt was found down by neighbors who called EMS. Pt has [facility] healthcare [facility] admin insurance coverage and sees Karlee Kaplan for primary care. Per MD orders, SW to follow up with pt regarding SNF and SNF preferences. Pt underwent wound debridement today. SW to follow up with pt regarding initial assessment and discharge planning. Plan: SW to follow up with pt regarding initial assessment. SW to continue to follow. YINA Early
--- NOTE | 2017-01-05 17:03 | DRSVH ---
PROCEDURE: X-RAY RIGHT FOOT COMPLETE, MINIMUM THREE VIEWS ([id number]) INDICATIONS: infected ulcer right foot s/p amputation TECHNIQUE: 3 views of the foot were acquired. COMPARISON: [facility], CR, XR FOOT 3VW RT, 01/04/2017, 21:11. [facility], C R, XR FOOT 3VW RT, 08/26/2015, 16:14. [facility], CR, XR FOOT 3VW LT, 09/11/2016, 14:39. FINDINGS: Expected interval postoperative changes are noted related to partial amputation involving the 1st and 2nd metatarsal heads and the 2nd toe. The remainder of the imaged osseous structures are otherwise intact and unchanged. Degenerative changes throughout the midfoot and hindfoot are unchanged. No lyles spicious osseous lesions or acute fractures are identified. Extensive soft tissue edema is identifie d overlying the right foot, more pronounced on the dorsal aspect of the foot within the region of the 1st and 2nd toe stumps. No unexpected radiopaque foreign bodies. IMPRESSION: Interval postoperative changes of the right forefoot as described. No radiopaque foreign bodies. Dictated by: Ronal Galindo M.D. on 01/05/2017 at 15:58 Approved by: Ronal Galindo M.D. on 01/05/2017 at 16:02
--- NOTE | 2017-01-05 17:55 | NUR ---
Shift: Tele Afib 80s-150s, HR settled down after taking AM meds. MD ordered 2u FFP to be given this AM, pt received 1st unit prior to going to OR. When pt returned from OR, he had not received 2nd unit. notified and said to not give 2nd unit. Pt has hx of urinary retention, had not voided for most of shift, bladder scan showed 366mL urine in bladder, able to void 450mL. Off unit today for approx 3 hours for planned I&D in OR, pt had I&D and toe amputation. R foot elevated on pillows, dressed with natalie wrap, dressing has some sero-sang drainage at distal end. Care ongoing.
[2017-01-05 18:22] LABS: BASOPHILS % (AUTO) 0.1 % (0-3); EOSINOPHILS % (AUTO) 0.4 % (0-5); MONOCYTES % (AUTO) 6.2 % (4-12); Mean Corpuscular Hemoglobin 29.7 pg (27.0-35.0); Mean Corpuscular Volume 91.2 fL (81-100); NEUTROPHILS % (AUTO) 86.1 % (40-74); Platelet Count 149 bil/L (150-400)
--- NOTE | 2017-01-05 18:47 | OP ---
[address] [address] OPERATIVE REPORT PATIENT: DARA OLIVAS : 1945 MR#: [id number] ADMIT: 01/03/2017 JOB ID: [id number] DATE OF SURGERY: 01/05/2017 SURGEON: Jeanne Key DPM. STEAMER OPERATOR: None. PREOPERATIVE DIAGNOSIS(ES): Infected right foot with abscess and probable osteomyelitis of the 1st metatarsal and possibly second metatarsophalangeal joint. POSTOPERATIVE DIAGNOSIS(ES): Infected right foot with abscess, dorsal midfoot, and osteomyelitis first and second metatarsal, second right toe. PROCEDURE: Second ray amputation and excision of first metatarsal head, right foot, and debridement of infected soft tissue, dorsal right midfoot, and drainage of abscess. COMPLICATIONS: None. ESTIMATED BLOOD LOSS: Less than 50 cc. ANESTHESIA: Local with IV sedation. TOURNIQUET: None. Patient brought into the operating room and placed in supine position on the operating room table. After IV sedation was administered, 5 cc of a 1:1 mixture of 0.5% Marcaine plain with lidocaine 1% plain was administered as an ankle block to the right ankle. A thigh tourniquet was then applied. The foot was then prepped and draped in usual sterile technique. Attention was then directed to the dorsal aspect of the second metatarsal plantar joint where I made a 3 cm linear incision over the 2nd metatarsophalangeal joint. It was noted that there was pustular discharge which immediately ran through the incision. This incision was deepened down to subcutaneous tissue using sharp and dull dissection and Bovieing any bleeders necessary for hemostasis. It was noted that the soft tissue structures were purple discolored and nonblanchable. The extensor tendon over the 2nd metatarsophalangeal joint was yellow discolored and friable. This was excised and removed using Metzenbaum scissors. It is noted that the purple discolored tissue was present more proximally and the incision was extended proximally another 2 cm. Again, any surrounding necrotic, friable tissue was excised and removed in toto. Any bleeders were cauterized as needed for hemostasis. The incision was extended proximally another 4 cm due to the extent of the necrotic nonviable tissue noted within the underlying tissues. There was extensive necrotic and fibrotic tissue and purple nonblanchable tissue which extended from the medial border of the foot to the lateral border from the metatarsophalangeal joints to the anterior ankle. I used a rongeur, tissue nipper and a curette to excise any abnormal tissue and the pustular discharge which was present was also manually expressed from the soft tissues. It was noted that the necrotic tissue extended from the navicular to the cuboid. The extensor digitorum longus tendons that attached to the second and third toes that looked abnormal in appearance were also excised and removed using Metzenbaum scissors. Attention was then directed to the first metatarsal head. The nonviable and fibrotic tissue was sharply excised exposing the head of the 1st metatarsal using a tissue nipper and Metzenbaum scissors. The periosteum was reflected away from the head of the 1st metatarsal. Using a sagittal saw, I made a cut through the neck of the 1st metatarsal from medial to lateral. Using a Patrick and iris scissors, I released all of the soft tissue and ligamentous attachments and removed the bone. I sent the head of the 1st metatarsal to pathology for gross and microscopic exam. Also sent a sample of the soft tissue for Gram stain, aerobic and anaerobic culture. I palpated and inspected the remaining bone of the 1st metatarsal and it was bleeding and was hard to palpation. I decided to leave the remaining part of the metatarsal as it appeared healthy. Attention was then directed to the second metatarsophalangeal joint where it was noted that there was pustular discharge which was present within the joint capsule of the 2nd MPJ. Using a 10 blade I made two semi-elliptical incisions through the skin down through the joint capsule which encompassed the entire 2nd toe. I disarticulated the second toe at the 2nd metatarsal plantar joint and removed it in toto. The toe was then sent to Pathology for gross and microscopic exam. It was noted that the head of the second metatarsal was soft in nature. I reflected the periosteum away from the neck of the second metatarsal and a sagittal saw was used to cut through the entire bone The head of the second metatarsal was then freed of its ligamentous and capsular attachments and the head of the second metatarsal was then excised and the bone was sent to Pathology for gross and microscopic exam. There area was then copiously flushed with normal saline. The remaining friable tissue was excised using a tissue nipper and rongeur. Any bleeders were cauterized for hemostasis. The remaining ulceration was then dressed using saline moistened gauze, 4 x 4 gauze, ABD, Kerlix, and Raymond wrap. The patient tolerated the procedure and anesthesia well. He left the operating room with vital signs stable and vascular status to all remaining toes of the right foot. The patient was transferred to the recovery room and is to be transferred back onto progressive care once he is medically stable. JAMIR
[2017-01-05 18:58] LABS: ERYTHROCYTE SEDIMENTATION RATE > 140 mm/hr (0-30)
--- NOTE | 2017-01-05 20:50 | PCM.PNMED ---
Subjective Date of Service Jan 05, 2017 Subjective Overnight Events: Patient had I&D by Dr. Key yesterday evening with 50 cc pustular drainage. Patient to have further I&D in OR today. He is resting in bed comfortably and in no acute distress. The patient reports feeling better than the day prior. He does mention some back pain. The patient denies headache, dizziness, sore throat, cough, chest pain, shortness of breath , abdominal pain, nausea, vomiting, constipation, and diarrhea. The patient admits to not having to urinate very much. Exam Vital Signs Vital Sign - Last Date Time Temp Pulse Resp B/P Pulse Ox O2 Delivery O2 Flow Rate FiO2 01/05/17 16:30 Supplement Oxygen 01/05/17 15:05 36.6 98 21 125/69 97 1.00 Intake and Output 01/04/17 01/04/17 01/05/17 Cumulative From/Thru 15:00 23:00 07:00 01/03/17 11:59 - 01/05/17 05:06 Intake Total 2100 ml 0 ml 7889 ml Output Total 600 ml 400 ml 1400 ml Balance 1500 ml -400 ml 6489 ml Intake Oral 500 ml 0 ml 1250 ml IV Total 1600 ml 6639 ml Output Urine Total 600 ml 400 ml 1400 ml # Voids 3 # Bowel Movements 1 0 2 Exam General: No acute distress, well-developed, well-nourished, appropriately interactive HEENT: Normocephalic, Pupils equal, round, Anicteric sclerae, Cardiovascular: Tachycardia, irregularly irregularm with no murmurs, rubs, or gallops appreciated Pulmonary: Clear to auscultation bilaterally with no crackles, wheezes, or rhonchi. Normal respiratory effort with no use of accessory muscles. Abdomen: Bowel tones present. Soft, nontender, nondistended. Extremities: RLE edematous, wrapped in natalie wrap, post surgery. Skin: Hot, erythematous on RLE. LLE ulcers on ball of foot. Neurological: Cranial nerves grossly intact. Psychiatric: Normal mood and affect. Alert and oriented to person, place, and time Lab and Diagnostics Result Diagram: 01/05/17 1800 01/05/17 1800 Microbiology Laboratory Tests Test 01/05/17 05:35 01/05/17 18:00 White Blood Count 14.8th/mm3 (3.8-10.1) 13.2th/mm3 (3.8-10.1) Red Blood Count 3.29mil/mm3 (4.40-5.80) 2.96mil/mm3 (4.40-5.80) Hemoglobin 9.7g/dL (13.8-17.2) 8.8g/dL (13.8-17.2) Hematocrit 30.3% (41.0-50.0) 27.0% (41.0-50.0) Mean Corpuscular Volume 92.1fL (81-100) 91.2fL (81-100) Mean Corpuscular Hemoglobin 29.5pg (27.0-35.0) 29.7pg (27.0-35.0) Mean Corpuscular Hemoglobin Concent 32.0% (32.0-37.0) 32.6% (32.0-37.0) Red Cell Distribution Width 15.8% (12.3-15.4) 15.4% (12.3-15.4) Platelet Count 171bil/L (150-400) 149bil/L (150-400) Neutrophils (%) (Auto) 84.1% (40-74) 86.1% (40-74) Lymphocytes (%) (Auto) 7.4% (14-46) 6.7% (14-46) Monocytes (%) (Auto) 7.3% (4-12) 6.2% (4-12) Eosinophils (%) (Auto) 0.4% (0-5) 0.4% (0-5) Basophils (%) (Auto) 0.1% (0-3) 0.1% (0-3) Prothrombin Time 24.4sec (8.1-12.5) Prothromb Time International Ratio 2.24ratio Sodium Level 133mEq/L (134-144) 132mEq/L (134-144) Potassium Level 4.8mEq/L (3.5-5.2) 4.6mEq/L (3.5-5.2) Chloride Level 101mEq/L (97-108) 98mEq/L (97-108) Carbon Dioxide Level 18mmol/L (18-29) 18mmol/L (18-29) Blood Urea Nitrogen 48mg/dL (8-27) 51mg/dL (8-27) Creatinine 2.02mg/dL (0.76-1.27) 2.08mg/dL (0.76-1.27) Estimat Glomerular Filtration Rate 35mL/min (>59) 34mL/min (>59) Glucose Level 215mg/dL (60-99) 214mg/dL (60-99) Calcium Level 7.5mg/dL (8.5-10.1) 7.6mg/dL (8.5-10.1) Phosphorus Level 3.0mg/dL (2.5-4.9) Erythrocyte Sedimentation Rate > 140mm/hr (0-30) Microbiology 01/05/17 Blood Culture, Received Pending 01/04/17 MRSA (PCR) - Final, Complete 01/05/17 Gram Stain - Final, Resulted 01/05/17 Culture & Sensitivity, Resulted Pending 01/05/17 Anaerobic Culture, Resulted Pending X-Rays, CTs and MRIs CT brain 1. No acute intracranial abnormalities. 2. Cerebral volume loss and chronic microvascular ischemic change Dictated by: Milton Bardales M.D. on 01/03/2017 at 12:54 Chest x-ray IMPRESSION: No acute cardiopulmonary disease. Dictated by: Milton Bardales M.D. on 01/03/2017 at 13:55 Venous duplex IMPRESSION: No deep venous thrombosis in the right lower extremity. Dictated by: Milton Bardales M.D. on 01/03/2017 at 12:40 01/04 PROCEDURE: X-RAY RIGHT FOOT COMPLETE, MINIMUM THREE VIEWS ([id number]) IMPRESSION: Worsening osteomyelitis involving the first metatarsal head with gas within the adjacent soft tissues as well as throughout the dorsal aspect of the soft tissues. Although the gas may be related to recent instrumentation, developing necrotizing fasciitis cannot be excluded and clinical correlation and followup is recommended. Dr. Key given results at 1108 hours on 01/05/2017. Dictated by: Sung VELAZCO Interpreted: Rhona Paige MD on 01/05/2017 at 10:56 01/05 PROCEDURE: X-RAY RIGHT FOOT COMPLETE, MINIMUM THREE VIEWS ([id number]) IMPRESSION: Interval postoperative changes of the right forefoot as described. No radiopaque foreign bodies. Dictated by: Ronal Galindo M.D. on 01/05/2017 at 15:58 Cardiac Echo Impressions Last echo 04/06/16 Interpretation Summary Left ventricular wall thickness is mild-moderately increased. Assessment of diastolic parameters indicates a relaxation abnormality of the left ventricle, consistent with normal filling pressures. The right ventricle is normal in size and function. Pulmonary artery pressures cannot be estimated because of the lack of a measurable TR jet velocity. Both atria are normal in size. There is no significant valvular heart disease. The aortic root is normal size. The aortic arch is normal in size. Assessment & Plan 71-year-old male with recent amputation of his right big toe and insulin- dependent diabetes who presents after being found down, with hypoglycemia and increased erythema of the right lower extremity consistent with cellulitis. Severe Sepsis, improving Likely Secondary to RLE cellulits and bacteremia found on admission. Patient on admission had leukocytosis of 24.3, tachycardia and tachypnea. Leukocytosis has been improving daily now down to 13.2. RLE very hot, erythematous and edematous , with fluctuant mass on base of RLE 1st digit. This has been improving throughout his admission with treatment initially on ancef and now on zosyn. Recent cultures in September show MSSA pansensitive. Nasal MRSA swab negative. Blood cultures have also been grown gram positive cocci likely to be staph aureus. - Appreciate Dr. Key consult and ID consult. - I/D done yesterday evening by Dr. Key drained approximately 50 cc of pustular discharge. Patient planned for more extensive debridement in the OR today. - Discontinued Ancef per Dr. Edwards recommendation. - Continued zosyn, start date 01/04/17 - Follow CBC, BMP - Ordered Complete ECHO and VIRGINIA per ID recommendation. Will discuss with ID in the morning if this is necessary as patient has x-ray showing osteomyelitis, which would require similar antibiotic regimen anyway. Anion gap metabolic acidosis with lactic acidosis; present on admission; Stable -Anion gap improved from 20 to 13, lactic acid trended to 1.0. - Continue IV Fluids as patient has limited PO fluid intake. Type 2 Diabetes with peripheral neuropathy, diabetic foot ulcer, Nephropathy and no proliferative retinopathy; present on admission; ongoing - medium correction Lispro algorithm - A1c 8.9 - Sepsis also likely contributing to poor control. - Lantus 10 units nightly - Hold Victoza sq Acute on chronic kidney injury; present on admission; active - Baseline Cr 1.3-1.7. Due to Hypertensive nephrosclerosis and Diabetic nephropathy - Will order bladder scan as patient has poor urine output for the last 3 days with worsening of BUN and Cr. - avoid nephrotoxic insults - monitor urine output - 2-3L on admission - Continue NS 125ml/hr Hypertension; present on admission; ongoing - Losartan 50 mg daily - Amlodipine 10 mg daily - Lasix 20 mg daily Paroxysmal Atrial fibrillation on Coumadin; present on admission; stable - monitor on telemetry - continue rate control with Carvedilol - Continue warfarin - Daily INR. Ordered 2 units FFP to reduce INR below 2 prior to I&D. Patient only recieved 1 unit. Held second unit after surgery. - Consider adding Diltiazem drip if sustained elevated HR. Hyperlipidemia - continue Atorvastatin 40 mg daily Acquired hypothyroidism - continue Synthroid 75 mcg daily Hypoglycemia, due to noncompliance; present on admission; Resolved - Pt has been without his glucometer; when obtained reading was "very high" likely due to above infection - Patient overdosed on Lantus, taking 2-3 times more than prescribed - Continue to monitor glucose Mild troponin elevation; present on admission; Resolved -Likely due to acute kidney injury -Now wnl Acetaminophen for mild pain when necessary. Bowel regimen Senna and MiraLAX scheduled and PRN. Zofran when necessary for nausea and vomiting. SCDs in place. High-risk medications: Warfarin Pain Evaluation: Adequate Pain Control VTE Mechanical Devices: Intermittant Pneumatic CD Attending Statement The patient was seen and examined together with Dr. Andre on 01/05/2017 and I agree with the history, exam and plan as outlined in the note above. . Vern Andre DO Jan 05, 2017 20:50 William Conde MD Jan 08, 2017 06:50
[2017-01-06] VITALS (9 sets, daily range): BP systolic 117–151; BP diastolic 51–73; PULSE 63–78; RESP 13–20; O2SAT 91–97
[2017-01-06 03:21] LABS: BASOPHILS % (AUTO) 0.1 % (0-3); EOSINOPHILS % (AUTO) 0.9 % (0-5); Mean Corpuscular Hemoglobin 29.6 pg (27.0-35.0); NEUTROPHILS % (AUTO) 80.1 % (40-74); Platelet Count 162 bil/L (150-400)
[2017-01-06 03:34] LABS: INR 3.69 ratio
[2017-01-06] MEDS: 0.9% Sodium Chloride 1,000 ML IV SCH ×3 (06:09→22:06)
--- NOTE | 2017-01-06 06:31 | NUR ---
Cardiac Right foot dressing C/D/I. Pt denies pain throughout. VSS. Pt converted from A-Fib to SR. Pt remains SR. No overt complications noted.
--- NOTE | 2017-01-06 08:27 | PROG NOTE ---
[address] [address] PROGRESS NOTE PATIENT: DARA OLIVAS : 1945 MR#: [id number] ADMIT: 01/03/2017 JOB ID: [id number] DATE: 01/06/2017 INFECTIOUS DISEASE FOLLOW UP NOTE: REASON FOR FOLLOWUP: Staph aureus bacteremia with associated right foot osteomyelitis. INTERVAL HISTORY: This is our patient with a complicated right diabetic foot infection with osteomyelitis as well as Staph aureus bacteremia and a subtle abnormality of his echocardiogram. Yesterday, the patient underwent a second ray amputation with excision of the 1st metatarsal head as well as debridement of infected tissue in the dorsal right midfoot. An abscess was encountered and drained as well. The patient this morning reports he is feeling quite well and is fully oriented. He is aware of his surroundings and the date but when asked about where he lives, which is actually on [place], the patient cannot remember. He states he has no fevers, no chills or headache today. He notes he is still wheezing which has been a frequent problem but he is not actually short of breath. He denies chest pain, nausea, vomiting, diarrhea, fever or chills. PHYSICAL EXAMINATION: Reveals a gentleman in no acute distress. Temperature 37.2, pulse 69, respiratory rate 15, blood pressure 117/58. He is saturating well on 4 L. As noted he is oriented x3 but gets hung up on where he lives and other details he probably should know. The examination of the eyes, no scleral icterus. Oral cavity negative. Lungs with bilateral wheezing which is quite significant. Cardiac tones: Regular rate and rhythm without significant murmur. The abdomen is benign. The right foot is wrapped in a very bulky postop dressing which has not yet been changed by the surgeon. LABORATORIES: Include a white count down to 12,300, platelet count 162. Creatinine 2.01. The cultures from blood from the are growing MSSA in all four bottles. This is quite a sensitive isolate. A MRSA screen of the nares is negative. The culture of the foot from the is growing Staph aureus. Intraoperative cultures are also pending and apparently growing Staph aureus. As of yet we have no growth of anaerobes. Follow up blood cultures on the are pending but, of course, they are only 24 hours old and are so far negative. The echocardiogram results include the transthoracic echo which shows ejection fraction 50% and echo density along the IAS which could be artifact. No other notable valve abnormalities are seen but the car builder notes that it was a technically difficult study. IMPRESSION: This patient undoubtedly has osteomyelitis with a complex diabetic infection of the right foot. Some of this tissue has undoubtedly been removed by Dr. Key, but it seems highly unlikely that 100% of the infection has been eradicated from the foot after such an extensive procedure and with so much disease. On that basis alone, I think the patient qualifies for six weeks of anti MSSA aggressive therapy. That said, it is unclear whether he needs a VIRGINIA. The patient is not overtly in congestive heart failure, does not have ongoing embolization and is clinically fairly stable. Unless cardiology thinks there is a reason from their perspective to perform a VIRGINIA, I do not think one is strictly indicated from the ID perspective, as we are going to treat for six weeks regardless of the outcome of the transesophageal echo. RECOMMENDATIONS: 1. Will continue with Zosyn for now. 2. Will continue to isolate the gram negatives, will likely switch to Ancef plus Flagyl tomorrow. 3. VIRGINIA at the discretion of Cardiology. 4. Will continue to follow this complex patient with you.
[2017-01-06] MEDS: Insulin GLARgine 100 Unit/mL Syringe SUBQ SCH (09:00)
[2017-01-06] MEDS: Sodium Chloride LOK Flush 10 mL Syringe IVFLUSH SCH ×3 (09:01→23:15)
[2017-01-06] MEDS: Insulin LISPRO 300 Unit/3 mL Inj SUBQ SCH ×4 (09:01→22:10)
[2017-01-06] MEDS: Piperacillin-Tazo 3.375 Gm Inj 3.375 GM in Dextrose 5% Minibag Plus 50 ML IV SCH ×2 (09:01→20:08)
[2017-01-06] MEDS: HYDROcodone-APAP 5-325 mg Tablet PO PRN ×2 (09:06→18:05)
--- NOTE | 2017-01-06 10:39 | NUR ---
Social Work Note: Initial Assessment Data& Assessment: EMR reviewed. LOURDES met with pt at bedside to discuss discharge planning, SW role explained. Mark Carter is a 71 year old male admitted on 01/03/2017 for [facility] insurance coverage and sees Karlee Cullen MD for primary care. Pt lives in [place] alone in a one level home and is independent at baseline with ADL's. Pt does own walking sticks, cane and a walker a home. Pt primarily uses the walking sticks for ambulation assistance. Pt is currently open with Johanna NARVAEZ RN for wound care for his foot. Pt does not have [facility] insurance or [place] benefits. Pt does have DPOA/ADvance Directive paperwork completed. SW requested a copy when possible. Pt does not use oxygen at baseline but is now requiring oxygen. Pt is requiring 6 weeks of IV abx per ID MD. Pt is also requiring PT after discharge. Per MD order, LOURDES met with pt at bedside to provide SNF list and discuss SNF preferences. Pt explained he has been to [facility] in the past and would like to go there again. LOURDES spoke with Liv from [facility] who is currently reviewing pt. Pt denies any other needs at this time. SW to continue to follow. Plan: Anticipated discharge to [facility] for wound care, IV abx and PT pending acceptance and insurance authorization. Pt denies any other needs at this time. LOURDES to continue to follow. YINA Early Addendum: 01/06/17 at 1045 by ROMAIN KHOURY Amended: Links added.
--- NOTE | 2017-01-06 15:43 | PCM.PNMED ---
Subjective Date of Service Jan 06, 2017 Subjective Overnight Events: None Patient is resting in bed and reports doing well today, relatively unchanged from yesterday. He denies chest pain, shortness of breath, abdominal pain, nausea, vomiting, diarrhea, constipation, headache or dizziness. Exam Vital Signs Vital Sign - Last Date Time Temp Pulse Resp B/P Pulse Ox O2 Delivery O2 Flow Rate FiO2 01/06/17 12:31 76 01/06/17 12:30 36.6 13 121/51 91 Nasal Cannula 2.50 Intake and Output 01/05/17 01/05/17 01/06/17 Cumulative From/Thru 15:00 23:00 07:00 01/03/17 11:59 - 01/06/17 06:17 Intake Total 250 ml 3137 ml 2015 ml 31490 ml Output Total 30 ml 450 ml 700 ml 2580 ml Balance 220 ml 2687 ml 1315 ml 61174 ml Intake Oral 1100 ml 400 ml 2750 ml IV Total 250 ml 2037 ml 1615 ml 20005 ml Output Urine Total 450 ml 700 ml 2550 ml Estimated Blood Loss 30 ml 30 ml # Voids 3 # Bowel Movements 0 2 Exam General: No acute distress, well-developed, well-nourished, appropriately interactive HEENT: Normocephalic, Anicteric sclerae, moist conjunctivae Cardiovascular: Regular rate and rhythm with no murmurs, rubs, or gallops appreciated Pulmonary: Clear to auscultation bilaterally with no crackles, wheezes, or rhonchi. Normal respiratory effort with no use of accessory muscles. Abdomen: Bowel tones present. Soft, nontender, nondistended. Extremities: RLE edema, with amputated 1st and 2nd digit on right foot. Skin: hot, erythematous on RLE; Ulcer on Left ball of foot. Neurological: Cranial nerves grossly intact. Psychiatric: Normal mood and affect. Alert and oriented to person, place, and time. Lab and Diagnostics Laboratory Tests Test 01/05/17 18:00 01/06/17 02:50 White Blood Count 13.2th/mm3 (3.8-10.1) 12.3th/mm3 (3.8-10.1) Red Blood Count 2.96mil/mm3 (4.40-5.80) 3.11mil/mm3 (4.40-5.80) Hemoglobin 8.8g/dL (13.8-17.2) 9.2g/dL (13.8-17.2) Hematocrit 27.0% (41.0-50.0) 28.6% (41.0-50.0) Mean Corpuscular Volume 91.2fL (81-100) 92.0fL (81-100) Mean Corpuscular Hemoglobin 29.7pg (27.0-35.0) 29.6pg (27.0-35.0) Mean Corpuscular Hemoglobin Concent 32.6% (32.0-37.0) 32.2% (32.0-37.0) Red Cell Distribution Width 15.4% (12.3-15.4) 15.8% (12.3-15.4) Platelet Count 149bil/L (150-400) 162bil/L (150-400) Neutrophils (%) (Auto) 86.1% (40-74) 80.1% (40-74) Lymphocytes (%) (Auto) 6.7% (14-46) 9.4% (14-46) Monocytes (%) (Auto) 6.2% (4-12) 9.0% (4-12) Eosinophils (%) (Auto) 0.4% (0-5) 0.9% (0-5) Basophils (%) (Auto) 0.1% (0-3) 0.1% (0-3) Erythrocyte Sedimentation Rate > 140mm/hr (0-30) Sodium Level 132mEq/L (134-144) 132mEq/L (134-144) Potassium Level 4.6mEq/L (3.5-5.2) 4.7mEq/L (3.5-5.2) Chloride Level 98mEq/L (97-108) 101mEq/L (97-108) Carbon Dioxide Level 18mmol/L (18-29) 19mmol/L (18-29) Blood Urea Nitrogen 51mg/dL (8-27) 53mg/dL (8-27) Creatinine 2.08mg/dL (0.76-1.27) 2.01mg/dL (0.76-1.27) Estimat Glomerular Filtration Rate 34mL/min (>59) 35mL/min (>59) Glucose Level 214mg/dL (60-99) 290mg/dL (60-99) Calcium Level 7.6mg/dL (8.5-10.1) 7.7mg/dL (8.5-10.1) Prothrombin Time 40.6sec (8.1-12.5) Prothromb Time International Ratio 3.69ratio Procalcitonin 8.02ng/mL (0.00-0.08) Microbiology Result Diagram: 01/06/17 0250 01/06/17 0250 Microbiology Laboratory Tests Test 01/05/17 05:35 01/05/17 18:00 White Blood Count 14.8th/mm3 (3.8-10.1) 13.2th/mm3 (3.8-10.1) Red Blood Count 3.29mil/mm3 (4.40-5.80) 2.96mil/mm3 (4.40-5.80) Hemoglobin 9.7g/dL (13.8-17.2) 8.8g/dL (13.8-17.2) Hematocrit 30.3% (41.0-50.0) 27.0% (41.0-50.0) Mean Corpuscular Volume 92.1fL (81-100) 91.2fL (81-100) Mean Corpuscular Hemoglobin 29.5pg (27.0-35.0) 29.7pg (27.0-35.0) Mean Corpuscular Hemoglobin Concent 32.0% (32.0-37.0) 32.6% (32.0-37.0) Red Cell Distribution Width 15.8% (12.3-15.4) 15.4% (12.3-15.4) Platelet Count 171bil/L (150-400) 149bil/L (150-400) Neutrophils (%) (Auto) 84.1% (40-74) 86.1% (40-74) Lymphocytes (%) (Auto) 7.4% (14-46) 6.7% (14-46) Monocytes (%) (Auto) 7.3% (4-12) 6.2% (4-12) Eosinophils (%) (Auto) 0.4% (0-5) 0.4% (0-5) Basophils (%) (Auto) 0.1% (0-3) 0.1% (0-3) Prothrombin Time 24.4sec (8.1-12.5) Prothromb Time International Ratio 2.24ratio Sodium Level 133mEq/L (134-144) 132mEq/L (134-144) Potassium Level 4.8mEq/L (3.5-5.2) 4.6mEq/L (3.5-5.2) Chloride Level 101mEq/L (97-108) 98mEq/L (97-108) Carbon Dioxide Level 18mmol/L (18-29) 18mmol/L (18-29) Blood Urea Nitrogen 48mg/dL (8-27) 51mg/dL (8-27) Creatinine 2.02mg/dL (0.76-1.27) 2.08mg/dL (0.76-1.27) Estimat Glomerular Filtration Rate 35mL/min (>59) 34mL/min (>59) Glucose Level 215mg/dL (60-99) 214mg/dL (60-99) Calcium Level 7.5mg/dL (8.5-10.1) 7.6mg/dL (8.5-10.1) Phosphorus Level 3.0mg/dL (2.5-4.9) Erythrocyte Sedimentation Rate > 140mm/hr (0-30) Microbiology 01/05/17 Blood Culture - Preliminary, Resulted NO GROWTH AFTER 24 HOURS 01/04/17 MRSA (PCR) - Final, Complete 01/05/17 Gram Stain - Final, Resulted 01/05/17 Culture & Sensitivity - Preliminary, Resulted 01/05/17 Anaerobic Culture, Resulted Pending X-Rays, CTs and MRIs CT brain 1. No acute intracranial abnormalities. 2. Cerebral volume loss and chronic microvascular ischemic change Dictated by: Milton Bardales M.D. on 01/03/2017 at 12:54 Chest x-ray IMPRESSION: No acute cardiopulmonary disease. Dictated by: Milton Bardales M.D. on 01/03/2017 at 13:55 Venous duplex IMPRESSION: No deep venous thrombosis in the right lower extremity. Dictated by: Milton Bardales M.D. on 01/03/2017 at 12:40 01/04 PROCEDURE: X-RAY RIGHT FOOT COMPLETE, MINIMUM THREE VIEWS ([id number]) IMPRESSION: Worsening osteomyelitis involving the first metatarsal head with gas within the adjacent soft tissues as well as throughout the dorsal aspect of the soft tissues. Although the gas may be related to recent instrumentation, developing necrotizing fasciitis cannot be excluded and clinical correlation and followup is recommended. Dr. Key given results at 1108 hours on 01/05/2017. Dictated by: Sung Tejada RR Interpreted: Rhona Paige MD on 01/05/2017 at 10:56 01/05 PROCEDURE: X-RAY RIGHT FOOT COMPLETE, MINIMUM THREE VIEWS ([id number]) IMPRESSION: Interval postoperative changes of the right forefoot as described. No radiopaque foreign bodies. Dictated by: Ronal Galindo M.D. on 01/05/2017 at 15:58 01/06 PROCEDURE: US RENAL SONOGRAM 1. Left renal inferior exophytic cyst otherwise normal kidneys. 2. 707 cc prevoid urinary volume and postvoid residual cannot be assessed. Cardiac Echo Impressions Last echo 04/06/16 Interpretation Summary Left ventricular wall thickness is mild-moderately increased. Assessment of diastolic parameters indicates a relaxation abnormality of the left ventricle, consistent with normal filling pressures. The right ventricle is normal in size and function. Pulmonary artery pressures cannot be estimated because of the lack of a measurable TR jet velocity. Both atria are normal in size. There is no significant valvular heart disease. The aortic root is normal size. The aortic arch is normal in size. Assessment & Plan 71-year-old male with recent amputation of his right big toe and insulin- dependent diabetes who presents after being found down, with hypoglycemia and increased erythema of the right lower extremity consistent with cellulitis. Severe Sepsis - improved Secondary to RLE cellulitis and bacteremia found on admission. Patient on admission had leukocytosis of 24.3, tachycardia and tachypnea. Leukocytosis has been improving daily now down to 13.2. RLE very hot, erythematous and edematous , with fluctuant mass on base of RLE 1st digit. This has been improving throughout his admission with treatment initially on ancef and now on zosyn. Recent cultures in September show MSSA pansensitive. Nasal MRSA swab negative. Blood cultures have also been grown gram positive cocci likely to be staph aureus. - Patient no longer tachycardic or tachypneic. Leukocytosis is down to 12.3. - Appreciate Dr. Key consult and ID consult. - I/D done 01/[address] Key drained approximately 50 cc of pustular discharge. Patient had extensive debridement and amputation of right second toe in OR 01/05. - Discontinued Ancef 01/05/17 - Continued zosyn, start date 01/04/17. Will transition to Ancef + Flagyl 01/[address] Edwards recommendation. Plan is for treatment of antibiotics for 6 weeks for osteomyelitis. Plan of care does not change if patient does have endocarditis. - TTE showed EF of 50%, apical hypokineseis and an echodensity along the superior aspect of the IAS, which could be an artifact. [place] would help elucidate this further. Per conversation with caridiologist, differential includes myxoma, so will proceed with [place] for 01/07. - Follow CBC, BMP -Repeat procalcitonin trended down as above Type 2 Diabetes with peripheral neuropathy, diabetic foot ulcer, Nephropathy and no proliferative retinopathy; present on admission; ongoing - switched to high dose correction Lispro algorithm - A1c 8.9 - Sepsis also likely contributing to poor control. - Lantus 10 units nightly - Hold Victoza sq Acute on chronic kidney injury; present on admission; active - Baseline Cr 1.3-1.7. Due to Hypertensive nephrosclerosis and Diabetic nephropathy - Renal ultrasound showed Pre-void bladder volume is 778 mL. - Ordered melara cath as patient has difficulty with urination and bladder volume in increased. - avoid nephrotoxic insults - monitor urine output - 2-3L on admission - Continue NS 125ml/hr Hypertension; present on admission; ongoing - Losartan 50 mg daily - Amlodipine 10 mg daily - Lasix 20 mg daily Paroxysmal Atrial fibrillation on Coumadin; present on admission; stable - monitor on telemetry - continue rate control with Carvedilol - Continue warfarin - Daily INR. Ordered 2 units FFP to reduce INR below 2 prior to I&D. Patient only recieved 1 unit. Held second unit after surgery on 01/05. - Consider adding Diltiazem drip if sustained elevated HR. Hyperlipidemia - continue Atorvastatin 40 mg daily Acquired hypothyroidism - continue Synthroid 75 mcg daily Hypoglycemia, due to noncompliance; present on admission; Resolved - Pt has been without his glucometer; when obtained reading was "very high" likely due to above infection - Patient overdosed on Lantus, taking 2-3 times more than prescribed - Continue to monitor glucose Mild troponin elevation; present on admission; Resolved -Likely due to acute kidney injury -Now wnl Anion gap metabolic acidosis with lactic acidosis; present on admission; Resolved -Anion gap improved from 20 to 12, lactic acid trended to 1.0. - Continue IV Fluids as patient has limited PO fluid intake. Acetaminophen for mild pain when necessary. Bowel regimen Senna and MiraLAX scheduled and PRN. Zofran when necessary for nausea and vomiting. High-risk medications: Warfarin Disposition: Likely Several days as patient has several problems that need to be addressed including further debridement of RLE by Dr. Key, [place] to follow echogenicity on TTE and antibiotic treatment. Pain Evaluation: Adequate Pain Control VTE Mechanical Devices: Intermittant Pneumatic CD Attending Statement The patient was seen and examined together with Dr. Andre on 01/06/2017 and I agree with the history, exam and plan as outlined in the note above. . Vern Andre DO Jan 06, 2017 15:43 William Conde MD Jan 08, 2017 06:51
--- NOTE | 2017-01-06 16:27 | DRSVH ---
PROCEDURE: US RENAL SONOGRAM INDICATIONS: Poor urine output, worsening BUN and Cr TECHNIQUE: Real-time scanning was performed of the kidneys and bladder, with image documentation. COMPARISON: None. FINDINGS: Kidneys: Kidneys are normal in size. Right kidney measures 12.0 cm long; left kidney measures 13.0 cm long. Right renal cortical thickness is 1.0 cm; left renal cortical thickness is 1.4 cm. Renal c ortical echotexture is normal. No hydronephrosis or nephrolithiasis. No suspicious solid mass lesio ns. Left inferior exophytic renal cyst measuring roughly 21 mm Bladder: Pre-void bladder volume is 778 mL. Post-void residual cannot be assessed as the patient wa s unable to void. Pre-void images demonstrate no intraluminal masses or stones. On pre-void images, neither ureteral jets are noted with color Doppler interrogation. (Of note, ureteral jets may not b e detectable in up to 25% of cases due to insufficient differences in specific gravity between ureter al and bladder urine). Miscellaneous: No free pelvic fluid. IMPRESSION: 1. Left renal inferior exophytic cyst otherwise normal kidneys. 2. 707 cc prevoid urinary volume and postvoid residual cannot be assessed. Dictated by: Sung PANDYA Interpreted: Samuel Garcia MD on 01/06/2017 at 13:19 Approved by: Samuel Garcia M.D. on 01/06/2017 at 16:25
--- NOTE | 2017-01-06 19:32 | NUR ---
Tele/Urinary retention No reports of chest pain/pressure/discomfort. Tele SR 70s, per tele converted to SR from AFIB on 01/05 at approx 2200. Systolic BP 150s this AM prior to medication administration, resolved to WNL. Patient had multiple PVCs throughout afternoon and one run of PSVT (approx 4 seconds -- asymptomatic, MD aware). No reports of SOB at rest, patient reported coughing with breakfast this AM, audible tight/wheezing breath sounds with inspiration. SPO2 on 2L NC 96%. No reports of n/v/d/c or abdominal pain. Bladder scan shows approx 878 mls, patient is bedrest and non weight bearing post surgery -- verbal order taken to place melara catheter, passed onto NOC report (order given at shift change), NOC will place melara.
[2017-01-06 20:54] LABS: APPEARANCE,URINE HAZY (CLEAR,HAZY); COLOR,URINE YELLOW (YELLOW); OCCULT BLOOD,URINE SMALL (NEGATIVE); UROBILINOGEN,URINE NORMAL (NORMAL)
[2017-01-06] MEDS ORDERED: Dextrose 10% 250 ML IV PRN (22:15)
[2017-01-07] VITALS (10 sets, daily range): BP systolic 131–153; BP diastolic 57–73; PULSE 65–86; RESP 14–21; O2SAT 94–97
--- NOTE | 2017-01-07 01:37 | PROG NOTE ---
[address] [address] PROGRESS NOTE PATIENT: DARA OLIVAS : 1945 MR#: [id number] ADMIT: 01/03/2017 JOB ID: [id number] DATE: 01/06/2017 The patient is seen status post debridement. He denies any fever or chills. His pain was well managed with pain medication yesterday. PHYSICAL EXAMINATION: Blood pressure 124/73, pulse 69, respiratory rate 16, temperature 36.8, pulse oximetry 97% via nasal cannula at 2 L/minute. There is decreased erythema and swelling around the incision site from yesterday. There is no pustular discharge noted within the soft tissue structures. It was noted that the bone at the base of the second metatarsal and cuneiform joint was exposed. It was brown discolored. Upon debridement of the discolored bone, it was noted that there is pustular discharge draining from the bone itself as well as within the joint space between the second metatarsal and cuneiform. There was purple nonblanchable skin and soft tissue both medially and laterally along the incision line. There was also purple discolored tissue extending underneath the skin from the lateral midfoot area. The bone of the 3rd metatarsal shaft was also exposed. The extensor tendon of the 3rd toe was visible within the incision site and it appeared normal in appearance. There was exposed joint capsule around the 1st and 2nd metatarsophalangeal joint. Neurovascular status is intact to toes of left foot three through five. There is no erythema, swelling noted. LABORATORY DATA: WBC 12.3, hemoglobin 9.2, hematocrit 28.6, platelets 162, neutrophils 80.1, lymphocytes at 9.4. Sodium 132, potassium 4.7, chloride 101, carbon dioxide 19, BUN 53, creatinine 2.01, estimated GFR 35, glucose 290, calcium 7.7. Microbiology wound culture from January 05, 2018 shows no polys seen, few gram-positive cocci, probably Staph aureus. Susceptibility to follow, heavy growth. Wound culture from January 04 from left foot shows positive cocci, probable Staph aureus. Susceptibilities to follow. Foot x-ray: involving the 1st and 2nd metatarsal heads and second toe. Extensive soft tissue edema is identified overlying the right foot, more pronounced on the dorsal aspect of the foot within the region of the 1st and 2nd toe stumps. No unexpected radiopaque foreign bodies. ASSESSMENT/PLAN: 1. One day status post 2nd ray amputation, excision of the 1st metatarsal head and extensive debridement of diabetic foot infection and abscess, right foot. There are no obvious signs of pustular discharge from the soft tissue, however, I am concerned that the base of the second metatarsal and medial cuneiform showed pustular discharge upon debridement of the bone as well as pustular discharge was expressed from within the 2nd metatarsocuneiform joint. The wound is still demarcating as to what will remain viable and what will not. I will continue to debride the nonviable tissue and any newly infected tissue. In the meantime, will continue with the IV antibiotics as recommended by Dr. Edwards. The plan is to have the patient on Ancef and Flagyl. Hopefully IV antibiotics in addition to further debridement will be sufficient to resolve his infection, although this may be an uphill wade due to the extent of his infection. In the meantime, we will continue to change the dressing twice daily and use Hydrogel to keep the tendon and bones in a moist environment as well as flush the wound at each dressing change to decrease the bacterial count. I debrided the nonviable and fibrotic tissue within the wound using a 10 blade, pickups and a rongeur was used to excise the bone at the base of the second metatarsal and cuneiform down to bleeding bone. A blood vessel that was oozing within the wound base was cauterized using silver nitrate. The area was copiously flushed with normal saline and the wound was dressed using Hydrogel, 4 x 4 gauze, ABD, and Kerlix wrap. 2. Type 2 diabetes with peripheral neuropathy. His blood sugars are in the 200s which is actually good for this patient as he is a brittle diabetic. His diabetes is being managed by the hospitalist.
[2017-01-07 04:03] LABS: BASOPHILS % (AUTO) 0.1 % (0-3); EOSINOPHILS % (AUTO) 2.2 % (0-5); MONOCYTES % (AUTO) 12.6 % (4-12); Mean Corpuscular Hemoglobin 29.7 pg (27.0-35.0); Mean Corpuscular Volume 92.2 fL (81-100); NEUTROPHILS % (AUTO) 73.2 % (40-74); Platelet Count 208 bil/L (150-400)
[2017-01-07 04:11] LABS: INR 3.54 ratio
[2017-01-07] MEDS: 0.9% Sodium Chloride 1,000 ML IV SCH ×3 (06:14→21:50)
--- NOTE | 2017-01-07 06:31 | NUR ---
BG 300's this shift, pt moved medium dose insulin algorithm. NWB, bilat dressings CDI. NPO since midnight in prep for [place] today.
[2017-01-07] MEDS: Insulin LISPRO 300 Unit/3 mL Inj SUBQ SCH ×5 (08:00→22:00)
[2017-01-07] MEDS ORDERED: Insulin GLARgine 100 Unit/mL Syringe SUBQ ONE (09:15)
[2017-01-07] MEDS ORDERED: Benzoc-Butamben-Tetraca Spray 20 Gm Spray TOPICAL PRN (10:30)
[2017-01-07] MEDS ORDERED: fentaNYL PF 50 mCg/mL 5 mL Inj IVPUSH PRN (10:30)
[2017-01-07] MEDS: Piperacillin-Tazo 3.375 Gm Inj 3.375 GM in Dextrose 5% Minibag Plus 50 ML IV SCH ×2 (10:43→20:00)
[2017-01-07] MEDS: Sodium Chloride LOK Flush 10 mL Syringe IVFLUSH SCH ×2 (10:43→16:10)
--- NOTE | 2017-01-07 11:01 | PROG NOTE ---
[address] [address] PROGRESS NOTE PATIENT: DARA OLIVAS : 1945 MR#: [id number] ADMIT: 01/03/2017 JOB ID: [id number] DATE: 01/07/2017 REASON FOR FOLLOWUP: MSSA bacteremic right foot osteomyelitis. INTERVAL HISTORY: The patient reports he is feeling reasonably well this morning. He denies fevers, chills, or sweats. No significant cough, abdominal pain, or diarrhea. He has minimal right foot pain despite his recent debridement. Review of the note from Podiatry which was written late last night reveals that there is no obvious sign of infection based upon her careful review of the wound, but there is still some discharge of purulent material around the second metatarsal as well as medial cuneiform area. The patient has already undergone a course 2nd ray amputation as well as the amputation of the 1st metatarsal head with extensive debridement. Dr. Key notes that there is still ongoing demarcation between viable and nonviable tissues, and she agrees with very aggressive antibiotic support. PHYSICAL EXAMINATION: Reveals an afebrile gentleman temperature 36.6, pulse 71, respiratory 17, blood pressure 153/59. Patient is saturating well on 2 L and in no acute distress. The examination of the oral cavity is unremarkable. Lungs fairly clear. Cardiac tones without new murmur. Abdomen benign. The right foot is wrapped in an extensive dressing and was changed last night by Podiatry, and I did not disturb it. LABORATORIES: Include a white count which has finally dropped to normal at 10,000, also normal diff. Creatinine is 1.83 slowly improving. Procalcitonin had been as high as 19 and is now down to 3.6. Micro studies include positive blood cultures for MSSA from the . Followup blood cultures are negative. We have foot cultures from the and also growing MSSA, no other organisms have been cultured as of this point. No anaerobes seem likely. IMPRESSION: This is a very complex diabetic patient with osteomyelitis and ongoing severe diabetic infection of the right foot. This is apparently a bacteremic osteomyelitis as we have positive blood cultures for methicillin sensitive Staphylococcus aureus. The patient is scheduled for transesophageal echocardiogram today, though I think it is unlikely it is endocarditis. This is a reasonable procedure in these circumstances. RECOMMENDATIONS: 1. I will continue with Zosyn for perhaps one more day and make sure there are no gram negatives isolated and then will make a switch to Ancef plus Flagyl probably on January 08. 2. We await the results of the [place].
--- NOTE | 2017-01-07 11:02 | PCM.PHAPRO ---
Progress Date of Service: Jan 07, 2017 Warfarin dosing Date Jan 04Jan 05Jan 06Jan 07 INR 1.7 2.24 3.69 3.54 INR change 0.54 1.45 3.54 Warf Dose 5 2MG HOLD HOLD Elin Goldberg PharmD Jan 07, 2017 11:01
--- NOTE | 2017-01-07 12:49 | NUR ---
[facility] [place] PT WAS RECEIVED TO [facility] AT 1130 FOR [place]. PROCEDURE WAS ACCOMPLISHED AND PT TOLERATED WELL. SEE PAPER FLOW FOR DETAILS. PT HAD VERSED 2MG AND FENTANYL 50MCG FOR SEDATION. THERE WERE NO COMPLICATIONS. PT WAS RETURNED TO HIS ROOM 2018 AT 1240 AND REPORT AND RN TO RN BEDSIDE HANDOFF WAS DONE WITH FELIPE Rosales RN.
[2017-01-07] MEDS: HYDROcodone-APAP 5-325 mg Tablet PO PRN (13:00)
--- NOTE | 2017-01-07 13:37 | DRSVH ---
[facility] [address] [place] [address] Echocardiogram Report Name: DARA OLIVAS Date : 01/07/2017 Hospital Exam Location: [facility] Gender: Male : 1945 Age: 71 yrs BP: 141/59 m mHg Reason For Study: Blood culutres positive for staph Ordering Physician: HOSPITALIST [facility] Performed By: Jazmin Bunch Referring Physician: GIULIA LAMBERT Interpretation Summary The left ventricular ejection fraction is grossly normal. The interatrial septum is intact with no evidence for an atrial septal defect. No evidence of endocarditis. No mass seen in RA, TTE finding was artifactual. Procedure: Informed consent for Transesophageal Echocardiogram, and use of a contrast agent as needed, was obtained prior to the procedure. The patient was brought to the [facility] in a fasting state. A multifrequency, multiplane transesopheageal echocardiographic endoscope was inserted and manipulated in the standard fashion to achieve multiplane views. The transesophageal probe was passed without difficulty. A 2D transesophageal echocardiogram with spectral and color flow Doppler was performed. The patient's vital signs, including blood pressure, heart rate, pulse oximetry and cardiac rhythm were monitored throughout the procedure and remained stable. The patient tolerated the procedure well without evidence of orophangeal or esophageal trauma. Contrast injection with agitated saline was performed. The patient was in normal sinus rhythm during the exam. There were no complications. Left Ventricle: The left ventricular ejection fraction is grossly normal. Atria: The interatrial septum is intact with no evidence for an atrial septal defect. Injection of contrast documented no interatrial shunt. Mitral Valve: There is no vegetation seen on the mitral valve. Aortic Valve: The aortic valve is trileaflet. There is no aortic valvular vegetation. No aortic regurgitation is present. Tricuspid Valve: There is no tricuspid valve vegetation. Pulmonic Valve: There is no vegetation on the pulmonic valve. Electronically signed by: Raj Eagle on Reading Physician:01/07/2017 01:37 PM
--- NOTE | 2017-01-07 14:29 | NUR ---
Evaluation completed. Pt will require 1:1 feed for supervision and cueing. Please go to "Notes" then click on "Assessments and Notes" (bottom left corner of screen). Then select appropriate discipline tab on top of screen.
--- NOTE | 2017-01-07 14:31 | NUR ---
Evaluation completed. Please go to "Notes" then click on "Assessments and Notes" (bottom left corner of screen). Then select appropriate discipline tab on top of screen.
--- NOTE | 2017-01-07 15:12 | NUR ---
NUTRITION ASSESSMENT: ASSESS: Pt is a 71yo M admitted for hypoglycemia and multiple falls. He is being followed by podiatry. He is s/p 2nd ray amputation, excision of the 1st metatarsal head and extensive debridement of diabetic foot infection and abscess, right foot. Pt had a VIRGINIA today. He has been on and off NPO status due to multiple procedures. PO 25-100%. ST evaluated pt and recommended soft diet. Pt reported that his appetite has been okay. PMHX: DM, HTN, foot ulcer, CAD LABS: Reviewed. 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 insulin GI: BMx1 01/04 SKIN: dionte 14, podiatry following for foot wounds CURRENT WTS: 98.4kg, BMI 33.0kg/m2, admit wt 98.2, IBW 70kg DIET: soft, PO 25-100% EST. NEEDS: healing, BMI Kcals: 2165-2460kcal/day (22-25kcal/kg) Pro: 85-105g/day (1.2-1.5g/kg IBW) NUTRITION DIAGNOSIS: 1.) Increased kcal/pro needs related to increased nutrient needs for healing as evidence by multiple foot wounds/surgery. NUTRITION INTERVENTION: 1.) Diet per ST 2.) Inpt DM diet education provided- pt is already signed up for oupt DM education 3.) Encouraged pt to make sure he is eating enough protein to help with healing. Pt was agreeable to try vanilla Glucerna on L tray MONITOR / EVAL: PO, wounds, gi, labs, wt, POC, nutrition status. Will continue to monitor per moderate nutrition risk guidelines.
--- NOTE | 2017-01-07 15:47 | NUR ---
Social Work: Readiness for Discharge D: Pt discussed in am rounds. Pt is not medically stable for discharge at this time. SHOVE UP spoke with Liv Muñoz at [facility] about referral status. She is reviewing at believes that they will be able to accept the patient with his current abx. She is working on the insurance auth. She is aware that the pt may be ready for discharge in the next 1-2 days. A: Pt who will require 6weeks IV ABX P: Anticipate pt to discharge to [facility] pending insurance authorization; SHOVE UP to continue to follow to coordinate discharge needs. YINA Ramos
[2017-01-07] MEDS ORDERED: Piperacillin-Tazo 3.375 Gm Inj 3.375 GM in Dextrose 5% Minibag Plus 50 ML IV SCH (16:30)
--- NOTE | 2017-01-07 18:31 | NUR ---
Mentation/O2/Muscle Spasms No reports of chest pain/pressure/discomfort. Tele SR 70s with occasional PVCs. Systolic BP prior to medication administration this AM 150s, resolved to WNL after medication administration. Pitting edema bilateral LE edema. No reports of SOB at rest, SPO2 on 2L NC 96%. Patient takes off O2 adlib, found to be 92-94% on RA -- left patient on RA with continuous SPO2 monitor. Patient's wheeze is still audible but decreased from yesterday. No reports of n/v/d/c or abdominal pain. Milton is patent draining yellow urine to gravity. No BM since 01/03 administered PRN senna this evening. Alert and oriented x3 this AM, x2 this evening (did not know location), VIVIANA, reports severe bilateral LE DM neuropathy,very little to no sensation during foot dressing changes. Patient having intermittent left leg/hip spasms, administered 1 hydrocodone and Flexeril, RN notes patient's speech has been more slurred and difficult to understand post VIRGINIA (arrived back to unit at approx 1300 and speech is still slurred). -- MD notified.
--- NOTE | 2017-01-07 20:06 | PCM.PNMED ---
Subjective Date of Service Jan 07, 2017 Subjective Overnight Events: None In the AM before VIRGINIA: Patient alert and oriented, reports doing well, doesn't have any complaints. Denies chest pain, headache, shortness of breath, nausea, vomiting, diarrhea constipation, abdominal pain. He does mention he's been having worsening in his strength in lower extremity since the last few days, which he attributes with not getting out of bed. Mentation was at his baseline for the last few days. Saw the patient again after his VIRGINIA around [id number] (2-3 hours after coming back from his procedure) and patient had slurred speech, status post versed, and when asked about where he was, his first response was inaccurate, but second response was hospital in [place]. When asked the year he had mentioned 1916, then responded 2016. He did respond to name. Was notified by nurse about continued slurred speech, at 1830, about 5-6 hours post procedure. Went and evaluated patient at 1900 and patient not , orientedx2. States he's in [facility] and was unable to respond to what year it was and continued slurring and having illogical speech. Positive for headache. Sent for stat head CT. Exam Vital Signs Vital Sign - Last Date Time Temp Pulse Resp B/P Pulse Ox O2 Delivery O2 Flow Rate FiO2 01/07/17 19:05 36.8 74 17 133/64 94 Room Air 01/07/17 12:30 2.00 Intake and Output 01/06/17 01/06/17 01/07/17 Cumulative From/Thru 15:00 23:00 07:00 01/03/17 11:59 - 01/07/17 06:22 Intake Total 1860 ml 1795 ml 40206 ml Output Total 0 ml 1300 ml 3880 ml Balance 1860 ml 495 ml 43155 ml Intake Oral 450 ml 100 ml 3300 ml IV Total 1410 ml 1595 ml 07932 ml TPN/PPN 100 ml 100 ml Output Urine Total 0 ml 1300 ml 3850 ml Estimated Blood Loss 30 ml # Voids 3 # Bowel Movements 0 0 2 Exam General: No acute distress, well-developed, well-nourished. Slurred speech, talking non-sense sentences. HEENT: Normocephalic, Anicteric sclerae, moist conjunctivae Cardiovascular: Regular rate and rhythm with no murmurs, rubs, or gallops appreciated Pulmonary: Clear to auscultation bilaterally with no crackles, wheezes, or rhonchi. Normal respiratory effort with no use of accessory muscles. Abdomen: Bowel tones present. Soft, nontender, nondistended. Extremities: RLE edema, with amputated 1st and 2nd digit on right foot. with wrapping over RLE Skin: hot, erythematous on RLE; Ulcer on Left ball of foot. Neurological: After returning from VIRGINIA, slurred speech, poor Rapid alternating movements, finger to nose test was difficult for pt, CN II - XII intact. RUE strength 3/5 similar to my evaluation on 01/04, LUE strength 4/5 similar to evaluation 01/04, RLE and LLE strength 1/5 which has been unchanged since this AM. Sensation still intact. Psychiatric: Normal mood and affect. Alert and oriented to person, not place or time (after VIRGINIA) Lab and Diagnostics Laboratory Tests 72 Hours Test 01/05/17 05:35 01/05/17 18:00 01/06/17 02:50 01/06/17 19:59 White Blood Count 14.8th/mm3 (3.8-10.1) 13.2th/mm3 (3.8-10.1) 12.3th/mm3 (3.8-10.1) Red Blood Count 3.29mil/mm3 (4.40-5.80) 2.96mil/mm3 (4.40-5.80) 3.11mil/mm3 (4.40-5.80) Hemoglobin 9.7g/dL (13.8-17.2) 8.8g/dL (13.8-17.2) 9.2g/dL (13.8-17.2) Hematocrit 30.3% (41.0-50.0) 27.0% (41.0-50.0) 28.6% (41.0-50.0) Mean Corpuscular Volume 92.1fL (81-100) 91.2fL (81-100) 92.0fL (81-100) Mean Corpuscular Hemoglobin 29.5pg (27.0-35.0) 29.7pg (27.0-35.0) 29.6pg (27.0-35.0) Mean Corpuscular Hemoglobin Concent 32.0% (32.0-37.0) 32.6% (32.0-37.0) 32.2% (32.0-37.0) Red Cell Distribution Width 15.8% (12.3-15.4) 15.4% (12.3-15.4) 15.8% (12.3-15.4) Platelet Count 171bil/L (150-400) 149bil/L (150-400) 162bil/L (150-400) Neutrophils (%) (Auto) 84.1% (40-74) 86.1% (40-74) 80.1% (40-74) Lymphocytes (%) (Auto) 7.4% (14-46) 6.7% (14-46) 9.4% (14-46) Monocytes (%) (Auto) 7.3% (4-12) 6.2% (4-12) 9.0% (4-12) Eosinophils (%) (Auto) 0.4% (0-5) 0.4% (0-5) 0.9% (0-5) Basophils (%) (Auto) 0.1% (0-3) 0.1% (0-3) 0.1% (0-3) Prothrombin Time 24.4sec (8.1-12.5) 40.6sec (8.1-12.5) Prothromb Time International Ratio 2.24ratio 3.69ratio Sodium Level 133mEq/L (134-144) 132mEq/L (134-144) 132mEq/L (134-144) Potassium Level 4.8mEq/L (3.5-5.2) 4.6mEq/L (3.5-5.2) 4.7mEq/L (3.5-5.2) Chloride Level 101mEq/L (97-108) 98mEq/L (97-108) 101mEq/L (97-108) Carbon Dioxide Level 18mmol/L (18-29) 18mmol/L (18-29) 19mmol/L (18-29) Blood Urea Nitrogen 48mg/dL (8-27) 51mg/dL (8-27) 53mg/dL (8-27) Creatinine 2.02mg/dL (0.76-1.27) 2.08mg/dL (0.76-1.27) 2.01mg/dL (0.76-1.27) Estimat Glomerular Filtration Rate 35mL/min (>59) 34mL/min (>59) 35mL/min (>59) Glucose Level 215mg/dL (60-99) 214mg/dL (60-99) 290mg/dL (60-99) Calcium Level 7.5mg/dL (8.5-10.1) 7.6mg/dL (8.5-10.1) 7.7mg/dL (8.5-10.1) Phosphorus Level 3.0mg/dL (2.5-4.9) Erythrocyte Sedimentation Rate > 140mm/hr (0-30) Procalcitonin 8.02ng/mL (0.00-0.08) Urine Color Yellow (YELLOW) Urine Appearance Hazy (CLEAR,HAZY) Urine pH 5.0 (5.0-8.0) Urine Specific Russell 1.020 (1.003-1.035) Urine Protein 30mg/dL (NEG,TRACE) Urine Glucose (UA) Negativemg/dL (NEGATIVE) Urine Ketones Negativemg/dL (NEGATIVE) Urine Occult Blood Small (NEGATIVE) Urine Nitrite Negative (NEGATIVE) Urine Bilirubin Negative (NEGATIVE) Urine Urobilinogen Normalmg/dL (NORMAL) Urine Leukocyte Esterase Negative (NEGATIVE) Urine RBC 0-2/hpf (0-2) Urine WBC 0-5/hpf (0-5) Urine Epithelial Cells Occasional/hpf (NONE-MOD) Urine Crystals Amorphous urates (NONE Urine Bacteria None/hpf (NONE-FEW) Urine Hyaline Casts None/lpf (NONE) Urine Granular Casts None seen (NONE SEEN) Urine Waxy Casts None seen (NONE SEEN) Urine Red Blood Cell Casts None seen (NONE SEEN) Urine White Blood Cell Casts None seen (NONE SEEN) Urine Mucus None seen (None Seen) Urine Trichomonas None seen (NONE SEEN) Urine Yeast None (NONE SEEN) Urinalysis Comment None Urine Culture Reflexed Not indicated Test 01/07/17 03:10 White Blood Count 10.0th/mm3 (3.8-10.1) Red Blood Count 3.44mil/mm3 (4.40-5.80) Hemoglobin 10.2g/dL (13.8-17.2) Hematocrit 31.7% (41.0-50.0) Mean Corpuscular Volume 92.2fL (81-100) Mean Corpuscular Hemoglobin 29.7pg (27.0-35.0) Mean Corpuscular Hemoglobin Concent 32.2% (32.0-37.0) Red Cell Distribution Width 15.3% (12.3-15.4) Platelet Count 208bil/L (150-400) Neutrophils (%) (Auto) 73.2% (40-74) Lymphocytes (%) (Auto) 11.4% (14-46) Monocytes (%) (Auto) 12.6% (4-12) Eosinophils (%) (Auto) 2.2% (0-5) Basophils (%) (Auto) 0.1% (0-3) Prothrombin Time 38.9sec (8.1-12.5) Prothromb Time International Ratio 3.54ratio Sodium Level 134mEq/L (134-144) Potassium Level 4.8mEq/L (3.5-5.2) Chloride Level 102mEq/L (97-108) Carbon Dioxide Level 19mmol/L (18-29) Blood Urea Nitrogen 53mg/dL (8-27) Creatinine 1.83mg/dL (0.76-1.27) Estimat Glomerular Filtration Rate 39mL/min (>59) Glucose Level 348mg/dL (60-99) Calcium Level 7.9mg/dL (8.5-10.1) Procalcitonin 3.58ng/mL (0.00-0.08) Result Diagram: 01/07/1730901/07/17 031 Microbiology Laboratory Tests Test 01/05/17 05:35 01/05/17 18:00 White Blood Count 14.8th/mm3 (3.8-10.1) 13.2th/mm3 (3.8-10.1) Red Blood Count 3.29mil/mm3 (4.40-5.80) 2.96mil/mm3 (4.40-5.80) Hemoglobin 9.7g/dL (13.8-17.2) 8.8g/dL (13.8-17.2) Hematocrit 30.3% (41.0-50.0) 27.0% (41.0-50.0) Mean Corpuscular Volume 92.1fL (81-100) 91.2fL (81-100) Mean Corpuscular Hemoglobin 29.5pg (27.0-35.0) 29.7pg (27.0-35.0) Mean Corpuscular Hemoglobin Concent 32.0% (32.0-37.0) 32.6% (32.0-37.0) Red Cell Distribution Width 15.8% (12.3-15.4) 15.4% (12.3-15.4) Platelet Count 171bil/L (150-400) 149bil/L (150-400) Neutrophils (%) (Auto) 84.1% (40-74) 86.1% (40-74) Lymphocytes (%) (Auto) 7.4% (14-46) 6.7% (14-46) Monocytes (%) (Auto) 7.3% (4-12) 6.2% (4-12) Eosinophils (%) (Auto) 0.4% (0-5) 0.4% (0-5) Basophils (%) (Auto) 0.1% (0-3) 0.1% (0-3) Prothrombin Time 24.4sec (8.1-12.5) Prothromb Time International Ratio 2.24ratio Sodium Level 133mEq/L (134-144) 132mEq/L (134-144) Potassium Level 4.8mEq/L (3.5-5.2) 4.6mEq/L (3.5-5.2) Chloride Level 101mEq/L (97-108) 98mEq/L (97-108) Carbon Dioxide Level 18mmol/L (18-29) 18mmol/L (18-29) Blood Urea Nitrogen 48mg/dL (8-27) 51mg/dL (8-27) Creatinine 2.02mg/dL (0.76-1.27) 2.08mg/dL (0.76-1.27) Estimat Glomerular Filtration Rate 35mL/min (>59) 34mL/min (>59) Glucose Level 215mg/dL (60-99) 214mg/dL (60-99) Calcium Level 7.5mg/dL (8.5-10.1) 7.6mg/dL (8.5-10.1) Phosphorus Level 3.0mg/dL (2.5-4.9) Erythrocyte Sedimentation Rate > 140mm/hr (0-30) Microbiology 01/05/17 Blood Culture - Preliminary, Resulted NO GROWTH AFTER 24 HOURS 01/04/17 MRSA (PCR) - Final, Complete 01/05/17 Gram Stain - Final, Resulted 01/05/17 Culture & Sensitivity - Preliminary, Resulted 01/05/17 Anaerobic Culture, Resulted Pending X-Rays, CTs and MRIs CT brain 1. No acute intracranial abnormalities. 2. Cerebral volume loss and chronic microvascular ischemic change Dictated by: Milton Bardales M.D. on 01/03/2017 at 12:54 Chest x-ray IMPRESSION: No acute cardiopulmonary disease. Dictated by: Milton Bardales M.D. on 01/03/2017 at 13:55 Venous duplex IMPRESSION: No deep venous thrombosis in the right lower extremity. Dictated by: Milton Bardales M.D. on 01/03/2017 at 12:40 01/04 PROCEDURE: X-RAY RIGHT FOOT COMPLETE, MINIMUM THREE VIEWS ([id number]) IMPRESSION: Worsening osteomyelitis involving the first metatarsal head with gas within the adjacent soft tissues as well as throughout the dorsal aspect of the soft tissues. Although the gas may be related to recent instrumentation, developing necrotizing fasciitis cannot be excluded and clinical correlation and followup is recommended. Dr. Key given results at 1108 hours on 01/05/2017. Dictated by: Sung VELAZCO Interpreted: Rhona Paige MD on 01/05/2017 at 10:56 01/05 PROCEDURE: X-RAY RIGHT FOOT COMPLETE, MINIMUM THREE VIEWS ([id number]) IMPRESSION: Interval postoperative changes of the right forefoot as described. No radiopaque foreign bodies. Dictated by: Ronal Galindo M.D. on 01/05/2017 at 15:58 01/06 PROCEDURE: US RENAL SONOGRAM 1. Left renal inferior exophytic cyst otherwise normal kidneys. 2. 707 cc prevoid urinary volume and postvoid residual cannot be assessed. Cardiac Echo Impressions Last echo 04/06/16 Interpretation Summary Left ventricular wall thickness is mild-moderately increased. Assessment of diastolic parameters indicates a relaxation abnormality of the left ventricle, consistent with normal filling pressures. The right ventricle is normal in size and function. Pulmonary artery pressures cannot be estimated because of the lack of a measurable TR jet velocity. Both atria are normal in size. There is no significant valvular heart disease. The aortic root is normal size. The aortic arch is normal in size. TTE 01/05/17 The study quality was technically difficult. A contrast injection of Definity was performed to improve assessment of LV function. Left ventricular ejection fraction is estimated to be 50%. Apical hypokinesis is suspected, LVEF is slightly lower on this exam. The right ventricle is normal size. Right ventricular systolic function is mildly reduced. The right ventricular systolic pressure is estimated at 25 mmHg assuming a right atrial pressure of 8 mm Hg. In an off axis view there is an echodensity along the superior aspect of the IAS, this could be an artifact. A VIRGINIA can hlep elucidate this further, or a limited echo to re evaluate the RA may be requested. VIRGINIA 01/07/17 The left ventricular ejection fraction is grossly normal. The interatrial septum is intact with no evidence for an atrial septal defect. No evidence of endocarditis. No mass seen in RA, TTE finding was artifactual. Assessment & Plan 71-year-old male with recent amputation of his right big toe and insulin- dependent diabetes who presents after being found down, with hypoglycemia and increased erythema of the right lower extremity consistent with cellulitis. Altered mental status, active Patient has decline in mental function after VIRGINIA. Mentation seems to be declining as patient is unable to respond correctly where he is or what year it is. He also has been having slurred speech. It should be re stated that prior to admission, patient had fallen and stated he did hit his head on this head board and had his head wedged in between. Head CT at that time showed no acute intracranial abnormalities. - DDx: Includes stroke secondary to hemorrhage, medication side effects of versed and also considering reduced clearance of versed due to poor kidney function, encephalitis. - Likely secondary to medication side effects, but given history, ordered stat CT head without contrast. RLE osteomyelitis and cellulitis, active Per right foot x-ray, now status post 2nd digit amputation by Dr. Key. May require more debridement. Foot cultures grew staph aureus. - Has been on Zosyn since 01/04/17 - Plan is to transition to Ancef + Flagyl per Dr. Edwards recommendation and treat for a total of 6 weeks. - Appreciate consults by Dr. Key, Dr. Edwards and PT. - PT for help with moving in bed as patient strength worsening throughout admission. - Will require discharge to SNF for treatment Acute Staph Aureus bacteremia, active Positive blood culture on 01/03. Repeat blood cultures on 01/05 are negative to date. TTE and VIRGINIA results as above. No endocarditis found. - Treat for 6 weeks due to osteomyelitis as above. Type 2 Diabetes with peripheral neuropathy, diabetic foot ulcer, Nephropathy and no proliferative retinopathy; present on admission; ongoing - High dose correction Lispro algorithm - A1c 8.9 - Sepsis also likely contributed to poor control. - Lantus increased to 20 units nightly, 10 units in the morning. - Hold Victoza sq Acute on chronic kidney injury; present on admission; Improved - Baseline Cr 1.3-1.7. Due to Hypertensive nephrosclerosis and Diabetic nephropathy - Renal ultrasound showed Pre-void bladder volume is 778 mL. - Patient has Milton as of 01/06/17. Improved BUN and Cr afterwards. - avoid nephrotoxic insults - monitor urine output - 2-3L on admission - Continue NS 125ml/hr Hypertension; present on admission; ongoing - Losartan 50 mg daily - Amlodipine 10 mg daily - Lasix 20 mg daily Paroxysmal Atrial fibrillation on Coumadin; present on admission; stable - monitor on telemetry - continue rate control with Carvedilol - Continue warfarin per pharmacy - Daily INR. Ordered 2 units FFP to reduce INR below 2 prior to I&D. Patient only recieved 1 unit. Held second unit after surgery on 01/05. - Consider adding Diltiazem drip if sustained elevated HR. Severe Sepsis - Resolved Secondary to RLE cellulitis and bacteremia found on admission. Patient on admission had leukocytosis of 24.3, tachycardia and tachypnea. Leukocytosis has been improving daily now down to 13.2. RLE very hot, erythematous and edematous , with fluctuant mass on base of RLE 1st digit. This has been improving throughout his admission with treatment initially on ancef and now on zosyn. Recent cultures in September show MSSA pansensitive. Nasal MRSA swab negative. Blood cultures have also been grown gram positive cocci likely to be staph aureus. - Patient no longer tachycardic or tachypneic. Leukocytosis is down to 12.3. - Appreciate Dr. Key consult and ID consult. - I/D done 01/[address] Key drained approximately 50 cc of pustular discharge. Patient had extensive debridement and amputation of right second toe in OR 01/05. - Discontinued Ancef 01/05/17 - Continued zosyn, start date 01/04/17. Will transition to Ancef + Flagyl 01/[address] Edwards recommendation. Plan is for treatment of antibiotics for 6 weeks for osteomyelitis. - TTE showed EF of 50%, apical hypokineseis and an echodensity along the superior aspect of the IAS, which could be an artifact. VIRGINIA would help elucidate this further. Per conversation with caridiologist, differential includes myxoma, so will proceed with VIRGINIA for 01/07. - Follow CBC, BMP -Repeat procalcitonin trended down as above Hyperlipidemia - continue Atorvastatin 40 mg daily Acquired hypothyroidism - continue Synthroid 75 mcg daily Hypoglycemia, due to noncompliance; present on admission; Resolved - Pt has been without his glucometer; when obtained reading was "very high" likely due to above infection - Patient overdosed on Lantus, taking 2-3 times more than prescribed - Continue to monitor glucose Mild troponin elevation; present on admission; Resolved -Likely due to acute kidney injury -Now wnl Anion gap metabolic acidosis with lactic acidosis; present on admission; Resolved -Anion gap improved from 20 to 12, lactic acid trended to 1.0. - Continue IV Fluids as patient has limited PO fluid intake. Acetaminophen for mild pain when necessary. Bowel regimen Senna and MiraLAX scheduled and PRN. Zofran when necessary for nausea and vomiting. High-risk medications: Warfarin Disposition: Likely Several days as patient has several problems that need to be addressed including further debridement of RLE by Dr. Key, VIRGINIA to follow echogenicity on TTE and antibiotic treatment. Pain Evaluation: Adequate Pain Control VTE Mechanical Devices: Intermittant Pneumatic CD Attending Statement The patient was seen and examined together with Dr. Andre on 01/07/2017 and I agree with the history, exam and plan as outlined in the note above. . Vern Andre DO Jan 07, 2017 20:06 William Conde MD Jan 08, 2017 06:53
--- NOTE | 2017-01-07 20:40 | DRSVH ---
PROCEDURE: CT BRAIN WITHOUT CONTRAST ([id number]) INDICATIONS: Altered mental status, slurred speech TECHNIQUE: Noncontrast 4.5 mm thick angled axial sections acquired from the foramen magnum to the vertex, with c oronal reformats. COMPARISON: Located Within [facility], CT, CT BRAIN WO CON, 01/03/2017, 12:41. FINDINGS: Image quality: Excellent. CSF spaces: Basal cisterns are patent. No extra-axial fluid collections. The ventricles are symmet caity in size and shape. Brain: No intracranial bleeds or masses. There is cerebral volume loss for age, with resultant vent ricular and sulcal prominence. There are periventricular and deep white matter chronic small vessel ischemic changes. There is intracranial internal carotid artery atherosclerosis. Skull and face: Calvarium and visualized facial bones appear intact, without suspicious lesions. Sinuses: Visualized sinuses demonstrate bilateral maxillary sinus mucous retention cyst versus polyp . IMPRESSION: 1. No acute intracranial process. 2. Moderate atrophy and chronic microvascular ischemic changes. Dictated by: Rehana Perez M.D. on 01/07/2017 at 20:37 Approved by: Rehana Perez M.D. on 01/07/2017 at 20:39
[2017-01-07] MEDS: Insulin GLARgine 100 Unit/mL Syringe SUBQ SCH (21:06)
--- NOTE | 2017-01-07 21:58 | PROG NOTE ---
[address] [address] PROGRESS NOTE PATIENT: DARA OLIVAS : 1945 MR#: [id number] ADMIT: 01/03/2017 JOB ID: [id number] DATE: 01/07/2017 The patient is seen for infected right foot. The patient has just come back from his [place] and is confused still from the IV sedation most likely. He did respond to my question, however, if he had any pain in his right foot and he did not. PHYSICAL EXAMINATION: Blood pressure 133/64, pulse 74, respirations 17, temp 36.8, pulse oximetry 94% on room air. Lower extremity exam: Dressing is intact with serosanguineous and slightly green-tinged drainage throughout the dressing. There is increased granulation tissue within the wound base, and the tissues themselves look healthier from yesterday. The bone of the second metatarsal and cuneiform is exposed within the wound base and there is a small amount of yellow drainage in this area. There is some friable and fibrotic tissue noted around the second metatarsophalangeal joint as well as along the edges of the wound both medially and laterally. There is no pustular discharge or fluctuance noted from any other part of the wound. There is mild erythema and swelling around the ulcer site. This is slightly increased from yesterday, however, there is less purple discoloration of the tissues and the skin itself. Neurovascular status is intact to all remaining toes of the right foot. LABORATORY DATA: WBC 10.0, hemoglobin 10.2, hematocrit 31.7, neutrophils 73.2, lymphocytes 11.4, monocytes 12.6. Sodium 134, potassium 4.8, chloride 102, carbon dioxide 19, BUN 53, creatinine 1.83. Estimated GFR 39. Glucose 348. Wound culture from January 04 shows oxacillin susceptible, penicillin resistant Staph aureus. No anaerobes. Wound culture from January 05, which were the intraoperative cultures, also showed oxacillin susceptible, penicillin resistant Staph aureus. No anaerobes isolated. ASSESSMENT AND PLAN: 1. Cellulitis with osteomyelitis, right foot. The white count is now within normal range and his neutrophils are decreasing. I think the infection is resolving well with the debridement and the IV antibiotics. I would, however, like to have the patient remain in the hospital for more frequent debridement of any necrotic tissue that may develop in the wound. There continues to be a small amount of yellow drainage from the metatarsocuneiform area and it is difficult to say at this time whether the IV antibiotics would be adequate to resolve the osteomyelitis. I will, however, do bone debridement as needed to help resolve the infection. The patient may also benefit from hyperbaric oxygen therapy. 2. Diabetic neuropathic ulceration, status post debridement and incision and drainage. The wound itself looks much better today and I am cautiously hopeful that the ulceration will continue to improve. If there is no worsening signs of infection tomorrow, I will initiate wound VAC therapy. Today, I debrided the nonviable and fibrotic tissue within the wound base using an iris scissor and a pickup. There was a minimal amount of bleeding. Hemostasis was achieved with pressure and silver nitrate. The patient tolerated the procedure well. The ulceration was redressed using Hydrogel, 4 x 4 gauze, ABD, and Kerlix. 3. Type 2 diabetes with peripheral neuropathy. His blood sugar has increased today over 300. His blood sugars have been notoriously difficult to control which has made it a challenge to manage this patient.
[2017-01-08] VITALS (9 sets, daily range): BP systolic 133–162; BP diastolic 58–95; PULSE 70–89; RESP 14–18; O2SAT 93–96
[2017-01-08] MEDS: Sodium Chloride LOK Flush 10 mL Syringe IVFLUSH SCH ×3 (01:01→16:30)
[2017-01-08 03:31] LABS: BASOPHILS % (AUTO) 0.2 % (0-3); EOSINOPHILS % (AUTO) 1.3 % (0-5); MONOCYTES % (AUTO) 10.9 % (4-12); Mean Corpuscular Hemoglobin 29.7 pg (27.0-35.0); Mean Corpuscular Volume 90.9 fL (81-100); NEUTROPHILS % (AUTO) 77.9 % (40-74); Platelet Count 287 bil/L (150-400)
[2017-01-08 03:47] LABS: INR 3.53 ratio
[2017-01-08] MEDS: Piperacillin-Tazo 3.375 Gm Inj 3.375 GM in Dextrose 5% Minibag Plus 50 ML IV SCH (03:47)
--- NOTE | 2017-01-08 05:01 | NUR ---
Mentation/wound care/BG Forgetful, pleasantly confused, oriented to self. Slurred words/searching. MD notified, VS WNL, CT negative. Bilat LE dressings changed by this ticket writer, LLE wound red, warm, with purulent drainage. notified, as per Dr. Edwards's note plan to start flagyl and ancef tomorrow, continue surgical debriedment. IV fluids DC'd r/t non-productive cough. SL in L wrist DC'd, 22g SL placed in L forearm. Abx given as ordered.
[2017-01-08] MEDS: Insulin LISPRO 300 Unit/3 mL Inj SUBQ SCH ×4 (07:39→22:00)
[2017-01-08] MEDS: Insulin GLARgine 100 Unit/mL Syringe SUBQ SCH ×2 (10:11→21:13)
--- NOTE | 2017-01-08 11:13 | PROG NOTE ---
[address] [address] PROGRESS NOTE PATIENT: DARA OLIVAS : 1945 MR#: [id number] ADMIT: 01/03/2017 JOB ID: [id number] DATE: 01/08/2017 INFECTIOUS DISEASE FOLLOW UP NOTE: REASON FOR FOLLOWUP: Bacteremic MSSA osteomyelitis of the right foot. INTERVAL HISTORY: Overnight the patient has had periods of confusion. This morning he knows where he is but is uncertain of the year. He also told me this morning he thinks this will be the last day of his life and that he hopes to return to [place], where he resides, before this later today. He denies having any fevers, chills or sweats. He denies sore throat. He says he is not significantly short of breath and he is not using nasal oxygen. He denies abdominal pain, nausea, vomiting or diarrhea. PHYSICAL EXAMINATION: Reveals an afebrile, somewhat confused gentleman. Temperature 36.5, pulse 86, respiratory rate 18, blood pressure 162/84. He is saturating about 95% on room air. Examination of the eyes, no conjunctival abnormalities. Oral cavity negative. Lungs fairly clear bilaterally. Cardiac tones without murmur. The abdomen is soft, nontender. His right foot is dressed and I did not remove the dressing. LABORATORIES: Include white count 10,900 today with 78% segs, really not changed. Creatinine 1.8. Procalcitonin 3.2. Urine white cells are negative. Recall that blood cultures on admission grew MSSA. Blood cultures from his foot have repeatedly grown MSSA, but no other organism of his foot. Follow up blood cultures are negative. Yesterday the patient had a transesophageal echocardiogram which showed no abnormalities and there was no evidence whatsoever for endocarditis. Dr. Key of Podiatry is, of course, following this patient very closely. She notes that he continues to have some developed necrotic tissue in some areas of the foot and he has quite an extensive area of infection. Whether or not he will require more surgery or amputations remains unclear and she is hopeful that the antibiotics will be helpful in that respect. IMPRESSION: This is an unfortunate diabetic gentleman with bacteremia MSSA infection of his right foot. His bacteremia has now resolved and he could receive a PICC line at any time. As we have not isolated any other organisms, I think we can also go ahead and safely switch to Ancef plus Flagyl and discontinue the Zosyn. RECOMMENDATIONS: 1. Will discontinue Zosyn. 2. Will start Ancef and the dose of Ancef will be 2 g q.8. 3. Flagyl will be added in a dose of 500 mg p.o. b.i.d. 4. The Ancef by injection route should continue through February 14 to complete our six weeks of IV antibiotics. The Flagyl can probably be given for a shorter period of time as we have not isolated any anaerobes and long-term use of Flagyl can be associated with neuropathy and other issues. Will continue that for approximately through mid January, January 22 specifically. 5. This patient is cleared for a PICC line at any time should one be needed but I will defer this decision to the primary team. I would keep in mind that the patient may at some point require dialysis and the renal folks may have strong feelings about the desirability or lack thereof of a PICC line and I would check with them before inserting a PICC. Perhaps they would be happier with some other indwelling access device that would leave open more opportunities for a fistula should he need dialysis in the future
--- NOTE | 2017-01-08 11:16 | PATH ---
SURGICAL PATHOLOGY Attending Physician:Jeanne Key DPM CASE STATUS: Signed Out PATIENT NAME: DARA OLIVAS PID: [id number] : 1945 DATE COLLECTED:01/05/2017 00:00 SPECIMEN: 1: Extremity Amputation, Non-Traumatic 2: Extremity Amputation, Non-Traumatic 3: Extremity Amputation, Non-Traumatic CLINICAL HISTORY: 1). RIGHT SECOND TOE 2). FIRST METATARSAL HEAD, RIGHT FOOT 3). SECOND METATARSAL HEAD, RIGHT FOOT FINAL DIAGNOSIS: 1.RIGHT SECOND TOE AMPUTATION SPECIMEN: CUTANEOUS ULCER WITH SEVERE SOFT TISSUE NECROSIS EXTENDING INTO UNDERLYING BONE WITH FOCAL OSTEOMYELITIS. INFLAMMATORY CHANGES AND FOCAL TISSUE NECROSIS APPEARS TO EXTEND TO THE INKED RESECTION MARGIN. 2.FIRST METATARSAL HEAD, RIGHT FOOT: BONE WITH ARTICULAR CARTILAGE AND NO SIGNIFICANT INFLAMMATION. 3.SECOND METATARSAL HEAD, RIGHT FOOT: ACUTE OSTEOMYELITIS THAT APPEARS TO EXTEND TO THE INKED RESECTION MARGIN. ICD10 M86.171 GROSS DESCRIPTION: The specimens are received in formalin, labeled with the patient's name, and sublabeled as the following: (1) right second toe; (2) first metatarsal head right foot; (3) second metatarsal head right foot. (1) The specimen consists of a disarticulated toe (6.5 cm AP, 2.5 cm SI, 2.7 cm ML). The toenail is present. The skin is holcomb-pink with multiple crusted over ulcers (0.2 x 0.2 cm-0.8 x 0.8 cm) involving the superior aspect. The ulcers are 1.8 cm from the superior and 2.5 cm from the inferior skin and soft tissue resection margins. The bone is hard and cannot be excised with a scalpel. The bone cut surface is holcomb-yellow and unremarkable. Ink code: black-superior; orange-inferior. Section code: (1A) skin and soft tissue resection margins, represented; (1B) bone articular surface; (1C) ulcer; (1D) bone underlying ulcers, serially sectioned, customer contact representative. Note: The bone sections have been decalcified. (2) The specimen consists of a resected piece of bone (2.2 x 2.1 x 1.0 cm). The bone is holcomb-yellow, hard, and cannot be sliced with a scalpel. The bone cut surface is holcomb-yellow and unremarkable. Ink code: black-resection margin. Section code: (2A) bone, perpendicularly sectioned, customer contact representative. Note: The bone section has been decalcified. (3) The specimen consists of a resected piece of bone with an articular surface (1.7 x 1.5 x 1.4 cm). The bone is holcomb-yellow, hard and cannot be sliced with a scalpel. The bone cut surface is holcomb-yellow and unremarkable. Ink code: black-resection margin. Section code: (3A) bone, perpendicularly sectioned, customer contact representative. Note: The bone section has been decalcified. 01/06/17 JM MICRO DESCRIPTION: See diagnosis. ICD-9 CODES: CPT CODES: 1: 58751, 36509 2: 89294, 00215 3: 07832, 96158 Electronically Signed Out Anshul Garcia MD [facility] [address], [place] [address] Technical component performed at [facility], [address] [place] [address] Ave[address], [place], [address]
--- NOTE | 2017-01-08 11:31 | DRSVH ---
PROCEDURE: X-RAY CHEST ONE VIEW, PORTABLE ([id number]) INDICATIONS: cough, shortness of breath, rales at lung base TECHNIQUE: One view of the chest was acquired. COMPARISON: [facility], CR, XR CHEST 1VW (PORTABLE), 01/03/2017, 12:55. FINDINGS: Surgical changes and devices: None. Lungs and pleura: Examination is limited by technique. Within these limits, bibasilar air space opac ities are present, left greater than right. No pneumothorax. Mediastinum: Mediastinal contours appear normal. Heart size is normal. Bones and chest wall: No suspicious bony lesions. Overlying soft tissues appear unremarkable. IMPRESSION: Bibasilar atelectasis versus aspiration or pneumonia. Correlate clinically. Dictated by: Sung VELAZCO Interpreted: Jason Benavidez MD on 01/08/2017 at 11:14 Approved by: Jason Benavidez M.D. on 01/08/2017 at 11:29
--- NOTE | 2017-01-08 12:46 | NUR ---
Evaluation completed. Please go to "Notes" then click on "Assessments and Notes" (bottom left corner of screen). Then select appropriate discipline tab on top of screen.
[2017-01-08] MEDS ORDERED: CeFAZolin 2 Gm/50 mL D5W Duplex Bag IV SCH (16:30)
--- NOTE | 2017-01-08 17:32 | NUR ---
Confusion.. Has been more awake alert and conversive but is confused, stating he is at home and has been found with legs out of bed and IV disconnected. Son Carmine updated over phone.
[2017-01-08] MEDS: CeFAZolin 2 Gm/50 mL D5W IV Premix IV SCH (18:30)
--- NOTE | 2017-01-08 19:11 | PCM.PNMED ---
Subjective Date of Service Jan 08, 2017 Subjective Overnight Events: None Subjective: Patient resting in bed comfortably in no acute distress. He is still feeling weak and unable to move in bed. He complains of difficulty with breathing and some coughing that's been developing. He denies headache, dizziness, chest pain, diarrhea, nausea, vomiting, abdominal pain. Exam Vital Signs Vital Sign - Last Date Time Temp Pulse Resp B/P Pulse Ox O2 Delivery O2 Flow Rate FiO2 01/08/17 05:29 89 01/08/17 02:51 36.5 16 153/58 93 Room Air 01/07/17 12:30 2.00 Intake and Output 01/07/17 01/07/17 01/08/17 Cumulative From/Thru 15:00 23:00 07:00 01/03/17 11:59 - 01/08/17 06:27 Intake Total 1608 ml 250 ml 22856 ml Output Total 875 ml 700 ml 5455 ml Balance 733 ml -450 ml 54227 ml Intake Oral 600 ml 3900 ml IV Total 1008 ml 250 ml 44906 ml TPN/PPN 100 ml Output Urine Total 875 ml 700 ml 5425 ml Estimated Blood Loss 30 ml # Voids 3 # Bowel Movements 0 2 Exam General: No acute distress, well-developed, well-nourished. Slurred speech improved. HEENT: Normocephalic, Anicteric sclerae, moist conjunctivae Cardiovascular: Regular rate and rhythm with no murmurs, rubs, or gallops appreciated Pulmonary: Rales at left lung base. Normal respiratory effort with no use of accessory muscles. Abdomen: Bowel tones present. Soft, nontender, nondistended. Extremities: RLE edema, with amputated 1st and 2nd digit on right foot. with wrapping over RLE Skin: hot, erythematous on RLE; Ulcer on Left ball of foot. Neurological: Rapid alternating movements improved today, CN II - XII intact. RUE strength 3/5 similar to previous day, LUE strength 4/5 similar to previous day, RLE and LLE strength 1/5 which has been unchanged since yesterday Sensation still intact. Psychiatric: Normal mood and affect. Alert and oriented to person and time. Lab and Diagnostics Result Diagram: 01/08/17 0300 01/08/17 0300 Microbiology Laboratory Tests Test 01/05/17 05:35 01/05/17 18:00 White Blood Count 14.8th/mm3 (3.8-10.1) 13.2th/mm3 (3.8-10.1) Red Blood Count 3.29mil/mm3 (4.40-5.80) 2.96mil/mm3 (4.40-5.80) Hemoglobin 9.7g/dL (13.8-17.2) 8.8g/dL (13.8-17.2) Hematocrit 30.3% (41.0-50.0) 27.0% (41.0-50.0) Mean Corpuscular Volume 92.1fL (81-100) 91.2fL (81-100) Mean Corpuscular Hemoglobin 29.5pg (27.0-35.0) 29.7pg (27.0-35.0) Mean Corpuscular Hemoglobin Concent 32.0% (32.0-37.0) 32.6% (32.0-37.0) Red Cell Distribution Width 15.8% (12.3-15.4) 15.4% (12.3-15.4) Platelet Count 171bil/L (150-400) 149bil/L (150-400) Neutrophils (%) (Auto) 84.1% (40-74) 86.1% (40-74) Lymphocytes (%) (Auto) 7.4% (14-46) 6.7% (14-46) Monocytes (%) (Auto) 7.3% (4-12) 6.2% (4-12) Eosinophils (%) (Auto) 0.4% (0-5) 0.4% (0-5) Basophils (%) (Auto) 0.1% (0-3) 0.1% (0-3) Prothrombin Time 24.4sec (8.1-12.5) Prothromb Time International Ratio 2.24ratio Sodium Level 133mEq/L (134-144) 132mEq/L (134-144) Potassium Level 4.8mEq/L (3.5-5.2) 4.6mEq/L (3.5-5.2) Chloride Level 101mEq/L (97-108) 98mEq/L (97-108) Carbon Dioxide Level 18mmol/L (18-29) 18mmol/L (18-29) Blood Urea Nitrogen 48mg/dL (8-27) 51mg/dL (8-27) Creatinine 2.02mg/dL (0.76-1.27) 2.08mg/dL (0.76-1.27) Estimat Glomerular Filtration Rate 35mL/min (>59) 34mL/min (>59) Glucose Level 215mg/dL (60-99) 214mg/dL (60-99) Calcium Level 7.5mg/dL (8.5-10.1) 7.6mg/dL (8.5-10.1) Phosphorus Level 3.0mg/dL (2.5-4.9) Erythrocyte Sedimentation Rate > 140mm/hr (0-30) Microbiology 01/05/17 Blood Culture - Preliminary, Resulted NO GROWTH AFTER 24 HOURS 01/04/17 MRSA (PCR) - Final, Complete 01/05/17 Gram Stain - Final, Resulted 01/05/17 Culture & Sensitivity - Preliminary, Resulted 01/05/17 Anaerobic Culture, Resulted Pending X-Rays, CTs and MRIs CT brain 1. No acute intracranial abnormalities. 2. Cerebral volume loss and chronic microvascular ischemic change Dictated by: Milton Bardales M.D. on 01/03/2017 at 12:54 Chest x-ray IMPRESSION: No acute cardiopulmonary disease. Dictated by: Milton Bardales M.D. on 01/03/2017 at 13:55 Venous duplex IMPRESSION: No deep venous thrombosis in the right lower extremity. Dictated by: Milton Bardales M.D. on 01/03/2017 at 12:40 01/04 PROCEDURE: X-RAY RIGHT FOOT COMPLETE, MINIMUM THREE VIEWS ([id number]) IMPRESSION: Worsening osteomyelitis involving the first metatarsal head with gas within the adjacent soft tissues as well as throughout the dorsal aspect of the soft tissues. Although the gas may be related to recent instrumentation, developing necrotizing fasciitis cannot be excluded and clinical correlation and followup is recommended. Dr. Key given results at 1108 hours on 01/05/2017. Dictated by: Sung Tejada Orlando Interpreted: Rhona Paige MD on 01/05/2017 at 10:56 01/05 PROCEDURE: X-RAY RIGHT FOOT COMPLETE, MINIMUM THREE VIEWS ([id number]) IMPRESSION: Interval postoperative changes of the right forefoot as described. No radiopaque foreign bodies. Dictated by: Ronal Galindo M.D. on 01/05/2017 at 15:58 01/06 PROCEDURE: US RENAL SONOGRAM 1. Left renal inferior exophytic cyst otherwise normal kidneys. 2. 707 cc prevoid urinary volume and postvoid residual cannot be assessed. Cardiac Echo Impressions Last echo 04/06/16 Interpretation Summary Left ventricular wall thickness is mild-moderately increased. Assessment of diastolic parameters indicates a relaxation abnormality of the left ventricle, consistent with normal filling pressures. The right ventricle is normal in size and function. Pulmonary artery pressures cannot be estimated because of the lack of a measurable TR jet velocity. Both atria are normal in size. There is no significant valvular heart disease. The aortic root is normal size. The aortic arch is normal in size. TTE 01/05/17 The study quality was technically difficult. A contrast injection of Definity was performed to improve assessment of LV function. Left ventricular ejection fraction is estimated to be 50%. Apical hypokinesis is suspected, LVEF is slightly lower on this exam. The right ventricle is normal size. Right ventricular systolic function is mildly reduced. The right ventricular systolic pressure is estimated at 25 mmHg assuming a right atrial pressure of 8 mm Hg. In an off axis view there is an echodensity along the superior aspect of the IAS, this could be an artifact. A V[place] can hlep elucidate this further, or a limited echo to re evaluate the RA may be requested. [place] 01/07/17 The left ventricular ejection fraction is grossly normal. The interatrial septum is intact with no evidence for an atrial septal defect. No evidence of endocarditis. No mass seen in RA, TTE finding was artifactual. Assessment & Plan 71-year-old male with recent amputation of his right big toe and insulin- dependent diabetes who presents after being found down, with hypoglycemia and increased erythema of the right lower extremity consistent with cellulitis. Altered mental status and Delerium, active Patient has decline in mental function after [place]. Mentation seems to be declining as patient is unable to respond correctly where he is or what year it is. He also has been having slurred speech. It should be re stated that prior to admission, patient had fallen and stated he did hit his head on this head board and had his head wedged in between. Head CT at that time showed no acute intracranial abnormalities. - DDx: Includes stroke secondary to hemorrhage, medication side effects of versed and also considering reduced clearance of versed due to poor kidney function, encephalitis. - Likely secondary to medication side effects, but given history, ordered stat CT head. - Head CT unremarkable. Will decrease pain medications, cluster nursing care, ask for frequent reorientation and make sure there is daylight in room during days. Shortness of breath, active -Patient having increased coughing and shortness of breath 01/08/17. -Chest X-ray shows impression is Bibasilar atelectasis versus aspiration or pneumonia. - Patient has been noted to be aspirating per speech evaluation and should have supervised PO intake. - Patient currently on Ancef for osteomyelitis - Acapella and Incentive spirometry - Recheck CBC RLE osteomyelitis and cellulitis, active Per right foot x-ray, now status post 2nd digit amputation by Dr. Key. May require more debridement. Foot cultures grew staph aureus. - Has been on Zosyn since 01/04/17 till 01/08/17 - Ancef from 01/08/[address] Edwards Recommendation. he should take until 02/14/17 - Appreciate consults by Dr. Key, Dr. Edwards and PT. - PT for help with moving in bed as patient strength worsening throughout admission. - Will require discharge to SNF for treatment - Per ID, patient cleared for PICC. He may require dialysis in the future and will consult with nephrology tomorrow about whether PICC or other indwelling access device is preferred. Acute Staph Aureus bacteremia, active Positive blood culture on 01/03. Repeat blood cultures on 01/05 are negative to date. TTE and [place] results as above. No endocarditis found. - Treat for 6 weeks due to osteomyelitis as above. Type 2 Diabetes with peripheral neuropathy, diabetic foot ulcer, Nephropathy and no proliferative retinopathy; present on admission; ongoing - High dose correction Lispro algorithm - A1c 8.9 - Sepsis also likely contributed to poor control. - Lantus increased to 20 units nightly, 10 units in the morning. - Hold Victoza sq Acute on chronic kidney injury; present on admission; Improved - Baseline Cr 1.3-1.7. Due to Hypertensive nephrosclerosis and Diabetic nephropathy - Renal ultrasound showed Pre-void bladder volume is 778 mL. - Patient has Milton as of 01/06/17. Improved BUN and Cr afterwards. - avoid nephrotoxic insults - monitor urine output - 2-3L on admission - Continue NS 125ml/hr Hypertension; present on admission; ongoing - Losartan 50 mg daily - Amlodipine 10 mg daily - Lasix 20 mg daily Paroxysmal Atrial fibrillation on Coumadin; present on admission; stable - monitor on telemetry - continue rate control with Carvedilol - Continue warfarin per pharmacy - Daily INR. Ordered 2 units FFP to reduce INR below 2 prior to I&D. Patient only recieved 1 unit. Held second unit after surgery on 01/05. - Consider adding Diltiazem drip if sustained elevated HR. Severe Sepsis - Resolved Secondary to RLE cellulitis and bacteremia found on admission. Patient on admission had leukocytosis of 24.3, tachycardia and tachypnea. Leukocytosis has been improving daily now down to 13.2. RLE very hot, erythematous and edematous , with fluctuant mass on base of RLE 1st digit. This has been improving throughout his admission with treatment initially on ancef and now on zosyn. Recent cultures in September show MSSA pansensitive. Nasal MRSA swab negative. Blood cultures have also been grown gram positive cocci likely to be staph aureus. - Patient no longer tachycardic or tachypneic. Leukocytosis is down to 12.3. - Appreciate Dr. Key consult and ID consult. - I/D done 01/[address] Key drained approximately 50 cc of pustular discharge. Patient had extensive debridement and amputation of right second toe in OR 01/05. - Discontinued Ancef 01/05/17 - Continued zosyn, start date 01/04/17. Will transition to Ancef + Flagyl 01/[address] Edwards recommendation. Plan is for treatment of antibiotics for 6 weeks for osteomyelitis. - TTE showed EF of 50%, apical hypokineseis and an echodensity along the superior aspect of the IAS, which could be an artifact. [place] would help elucidate this further. Per conversation with caridiologist, differential includes myxoma, so will proceed with [place] for 01/07. - Follow CBC, BMP -Repeat procalcitonin trended down as above Hyperlipidemia - continue Atorvastatin 40 mg daily Acquired hypothyroidism - continue Synthroid 75 mcg daily Hypoglycemia, due to noncompliance; present on admission; Resolved - Pt has been without his glucometer; when obtained reading was "very high" likely due to above infection - Patient overdosed on Lantus, taking 2-3 times more than prescribed - Continue to monitor glucose Mild troponin elevation; present on admission; Resolved -Likely due to acute kidney injury -Now wnl Anion gap metabolic acidosis with lactic acidosis; present on admission; Resolved -Anion gap improved from 20 to 12, lactic acid trended to 1.0. - Continue IV Fluids as patient has limited PO fluid intake. Acetaminophen for mild pain when necessary. Bowel regimen Senna and MiraLAX scheduled and PRN. Zofran when necessary for nausea and vomiting. High-risk medications: Warfarin VTE Mechanical Devices: Intermittant Pneumatic CD Time spent 30 minutes Attending Statement Patient was seen and examined at bedside in addition I directly supervised provided by Resident physician, Dr. Andre. I agree with above documentation. Condition remains guarded, may yet require amputation. Continue to appreciate specialist recommendations. Vern Andre DO Jan 08, 2017 06:29 Shoaib Nur DO Jan 09, 2017 14:16
--- NOTE | 2017-01-08 20:04 | PROG NOTE ---
[address] [address] PROGRESS NOTE PATIENT: DARA OLIVAS : 1945 MR#: [id number] ADMIT: 01/03/2017 JOB ID: [id number] DATE: 01/08/2017 SUBJECTIVE: The patient is seen for infected ulcer, right foot. The patient is confused and is rambling. He does not appear to be in any pain, except for occasional muscle cramping. PHYSICAL EXAMINATION: Blood pressure 147/68, pulse 78, respiratory rate 14, temperature 36.7, pulse oximetry 93% on room air. Lower extremity exam: Dressing is intact, with serosanguineous drainage on both the inner and outer dressing. There is a mild increase in erythema and swelling around the lateral margin of the wound. Pustular discharge was manually expressed from the right lower leg and lateral aspect of the rearfoot and midfoot area. There is purple nonblanchable tissue along the lateral border of the incision site. This extends almost to the entire length of the incision. The extensor tendon to the 4th toe is also yellow, discolored, and dried in appearance. He does have a small amount of pustular drainage from the metatarsocuneiform joint, however this is decreased from yesterday. There is no erythema or swelling of the remaining toes of the right foot. Neurovascular status is intact also. There is an area of purple nonblanchable tissue around the 1st metatarsal phalangeal joint. LABORATORY STUDIES: WBC 10.9, hemoglobin 10.4, hematocrit 31.8, platelets 287, neutrophils 77.9. Sodium 133, potassium 4.7, chloride 102, carbon dioxide 18, creatinine 1.79. Estimated GFR 240. Glucose 273. Calcium 8. INR 3.53. PT is 38.7. Wound culture from January 04 shows Staph aureus, oxacillin susceptible, penicillin resistant. Wound culture from January 05, 2017 is the same. PATHOLOGY: 1. Right second toe shows severe soft tissue necrosis extending into the underlying bone with focal osteomyelitis. Inflammatory changes on focal necrosis appears to extend to the resection margin. 2. First metatarsal head: Bone with articular cartilage and no significant inflammation. 3. Second metatarsal head, right foot: Acute osteomyelitis that appears to extend to the resection margin. ASSESSMENT/PLAN: Osteomyelitis with abscess and cellulitis, right foot. There is increased pustular drainage along the lateral border of the right foot. Using a 10 blade I excised the necrotic skin and underlying soft tissue. I also removed the necrotic extensor tendon extending to the 4th toe. The area around the ankle where pustular discharge was present was debrided using a tissue nipper. The area was flushed with Dakin's solution, followed by saline flush this morning, and it was again flushed copiously with normal saline after debridement. We will continue with shear debridement of any necrotic tissue that forms within the wound base. I may order an MRI of the right ankle and lower leg to see how far his infection may be extending around the ankle area, as I am able to express pus from that region. I did incise the skin approximately 0.5 cm and debrided some of the necrotic soft tissue within this area. We will see how it responds tomorrow and if there is no improvement then will order an MRI. The patient is now on Ancef and Flagyl, and we will see how the patient does with the new antibiotics.
[2017-01-09] VITALS (8 sets, daily range): BP systolic 138–159; BP diastolic 59–99; PULSE 66–82; RESP 14–17; O2SAT 96–98
[2017-01-09] MEDS: Sodium Chloride LOK Flush 10 mL Syringe IVFLUSH SCH ×3 (00:45→16:48)
[2017-01-09] MEDS: CeFAZolin 2 Gm/50 mL D5W IV Premix IV SCH ×2 (00:46→09:06)
[2017-01-09 03:22] LABS: BASOPHILS % (AUTO) 0.1 % (0-3); EOSINOPHILS % (AUTO) 1.6 % (0-5); MONOCYTES % (AUTO) 11.5 % (4-12); Mean Corpuscular Volume 90.5 fL (81-100); Platelet Count 312 bil/L (150-400)
[2017-01-09 03:45] LABS: INR 3.92 ratio
--- NOTE | 2017-01-09 05:53 | NUR ---
Mentation/wound/bowel care Pt continues to be pleasantly confused, inappropriate responses, oriented to self. Slept off and on this shift. LLE dressing changed per order. Pt afebrile this shift. Miralax and senna given for no BM x5 days.
[2017-01-09] MEDS: Insulin LISPRO 300 Unit/3 mL Inj SUBQ SCH ×4 (08:07→21:19)
[2017-01-09] MEDS: Insulin GLARgine 100 Unit/mL Syringe SUBQ SCH ×2 (08:07→21:20)
--- NOTE | 2017-01-09 11:45 | PROG NOTE ---
[address] [address] PROGRESS NOTE PATIENT: DARA OLIVAS : 1945 MR#: [id number] ADMIT: 01/03/2017 JOB ID: [id number] DATE: 01/09/2017 INFECTIOUS DISEASE FOLLOW UP NOTE: REASON FOR FOLLOWUP: Severe diabetic foot infection with osteomyelitis and MSSA bacteremia. INTERVAL HISTORY: Recall this is a gentleman with diabetes, bacteremia and severe MRSA infection of his right foot. He has improved considerably over the last couple days and today tells me he has no fevers, chills, shortness of breath at all and no cough. The resolution of the cough is an important milestone for him as it has been a troubling problem. In addition, he has no nausea or vomiting. He states he has no pain in his right foot. PHYSICAL EXAMINATION: Reveals an afebrile gentleman, in no acute distress. Temperature 37, pulse 66, respiratory rate only 14, saturating 97% on room air. Blood pressure 154/66. He is awake, alert, in no acute distress today. Lungs are clear. Abdomen is benign. Right foot is in a bulky dressing I did not remove. LABORATORIES: Today include a normalized white count 9600 with a normal differential. Creatinine 1.75. INR continues to be too high. It is 3.92 today. His procalcitonin yesterday was 3.22, which is trending down. Recall that we have multiple cultures from blood initially as well as the foot growing MSSA. Follow up blood cultures on the were negative. A chest x-ray done yesterday shows bibasilar atelectasis. IMPRESSION: This is a gentleman with a biopsy and pathologically proven osteomyelitis which was bacteremic with MSSA. He is now improving significantly. Yesterday, I attempted to transition the patient to Ancef plus Flagyl but the pharmacy called me and said that they are having a great deal of trouble with his anticoagulation as his INR continues to run at roughly 4 despite their best efforts. They had requested that we find a way to avoid the use of Flagyl in his regimen, and I am not certain that it is absolutely required as he has had extensive debridement and none of his cultures have yielded any anaerobic organisms. At this point, I think it is probably reasonable to continue with just the Ancef and to forego the Flagyl. RECOMMENDATIONS: 1. Will continue with Ancef 2 g IV q.8 with a plan to go through February 14. 2. We await additional developments from Podiatry. 3. Will continue to closely follow this complex patient with you.
[2017-01-09] MEDS: Piperacillin-Tazo 3.375 Gm Inj 3.375 GM in Dextrose 5% Minibag Plus 50 ML IV SCH (16:48)
--- NOTE | 2017-01-09 16:58 | PCM.PNMED ---
Subjective Date of Service Jan 09, 2017 Subjective Overnight Events: None Subjective: Patient resting in bed comfortably in no acute distress. His strength has improved a little. He is still having some coughing, but it has improved. He has not had a bowel movement for 5 days. He denies headache, dizziness, chest pain, shortness of breath, diarrhea, nausea, vomiting. Exam Vital Signs Vital Sign - Last Date Time Temp Pulse Resp B/P Pulse Ox O2 Delivery O2 Flow Rate FiO2 01/09/17 05:44 82 01/09/17 03:06 36.6 16 144/59 96 Room Air 01/07/17 12:30 2.00 Intake and Output 01/08/17 01/08/17 01/09/17 Cumulative From/Thru 15:00 23:00 07:00 01/03/17 11:59 - 01/09/17 06:44 Intake Total 462 ml 412 ml 38286 ml Output Total 550 ml 400 ml 6405 ml Balance -88 ml 12 ml 23828 ml Intake Oral 336 ml 200 ml 4436 ml IV Total 126 ml 212 ml 18706 ml TPN/PPN 100 ml Output Urine Total 550 ml 400 ml 6375 ml Estimated Blood Loss 30 ml # Voids 3 # Bowel Movements 0 2 Exam General: No acute distress, well-developed, well-nourished. Mention is back to baseline. HEENT: Normocephalic, Anicteric sclerae, moist conjunctivae Cardiovascular: Regular rate and rhythm with no murmurs, rubs, or gallops appreciated Pulmonary: Rales at left lung base, improved. Normal respiratory effort with no use of accessory muscles. Abdomen: Bowel tones present. Soft, nontender, nondistended. Extremities: RLE edema, with amputated 1st and 2nd digit on right foot. with wrapping over RLE. Skin: hot, erythematous on RLE - this have improved over the last few days of treatment and limited to about the mid tibia on the right all the way distally; Ulcer on Left ball of foot. Neurological: CN II - XII intact Psychiatric: Normal mood and affect. Alert and oriented to person and time. Lab and Diagnostics Laboratory Tests 72 Hours Test 01/06/17 19:59 01/07/17 03:10 01/08/17 03:00 01/09/17 02:55 Urine Color Yellow (YELLOW) Urine Appearance Hazy (CLEAR,HAZY) Urine pH 5.0 (5.0-8.0) Urine Specific [place] 1.020 (1.003-1.035) Urine Protein 30mg/dL (NEG,TRACE) Urine Glucose (UA) Negativemg/dL (NEGATIVE) Urine Ketones Negativemg/dL (NEGATIVE) Urine Occult Blood Small (NEGATIVE) Urine Nitrite Negative (NEGATIVE) Urine Bilirubin Negative (NEGATIVE) Urine Urobilinogen Normalmg/dL (NORMAL) Urine Leukocyte Esterase Negative (NEGATIVE) Urine RBC 0-2/hpf (0-2) Urine WBC 0-5/hpf (0-5) Urine Epithelial Cells Occasional/hpf (NONE-MOD) Urine Crystals Amorphous urates (NONE Urine Bacteria None/hpf (NONE-FEW) Urine Hyaline Casts None/lpf (NONE) Urine Granular Casts None seen (NONE SEEN) Urine Waxy Casts None seen (NONE SEEN) Urine Red Blood Cell Casts None seen (NONE SEEN) Urine White Blood Cell Casts None seen (NONE SEEN) Urine Mucus None seen (None Seen) Urine Trichomonas None seen (NONE SEEN) Urine Yeast None (NONE SEEN) Urinalysis Comment None Urine Culture Reflexed Not indicated White Blood Count 10.0th/mm3 (3.8-10.1) 10.9th/mm3 (3.8-10.1) 9.6th/mm3 (3.8-10.1) Red Blood Count 3.44mil/mm3 (4.40-5.80) 3.50mil/mm3 (4.40-5.80) 3.28mil/mm3 (4.40-5.80) Hemoglobin 10.2g/dL (13.8-17.2) 10.4g/dL (13.8-17.2) 9.5g/dL (13.8-17.2) Hematocrit 31.7% (41.0-50.0) 31.8% (41.0-50.0) 29.7% (41.0-50.0) Mean Corpuscular Volume 92.2fL (81-100) 90.9fL (81-100) 90.5fL (81-100) Mean Corpuscular Hemoglobin 29.7pg (27.0-35.0) 29.7pg (27.0-35.0) 29.0pg (27.0-35.0) Mean Corpuscular Hemoglobin Concent 32.2% (32.0-37.0) 32.7% (32.0-37.0) 32.0% (32.0-37.0) Red Cell Distribution Width 15.3% (12.3-15.4) 14.9% (12.3-15.4) 14.9% (12.3-15.4) Platelet Count 208bil/L (150-400) 287bil/L (150-400) 312bil/L (150-400) Neutrophils (%) (Auto) 73.2% (40-74) 77.9% (40-74) 74.0% (40-74) Lymphocytes (%) (Auto) 11.4% (14-46) 9.2% (14-46) 12.4% (14-46) Monocytes (%) (Auto) 12.6% (4-12) 10.9% (4-12) 11.5% (4-12) Eosinophils (%) (Auto) 2.2% (0-5) 1.3% (0-5) 1.6% (0-5) Basophils (%) (Auto) 0.1% (0-3) 0.2% (0-3) 0.1% (0-3) Prothrombin Time 38.9sec (8.1-12.5) 38.7sec (8.1-12.5) 43.1sec (8.1-12.5) Prothromb Time International Ratio 3.54ratio 3.53ratio 3.92ratio Sodium Level 134mEq/L (134-144) 133mEq/L (134-144) 136mEq/L (134-144) Potassium Level 4.8mEq/L (3.5-5.2) 4.7mEq/L (3.5-5.2) 4.4mEq/L (3.5-5.2) Chloride Level 102mEq/L (97-108) 102mEq/L (97-108) 106mEq/L (97-108) Carbon Dioxide Level 19mmol/L (18-29) 18mmol/L (18-29) 19mmol/L (18-29) Blood Urea Nitrogen 53mg/dL (8-27) 50mg/dL (8-27) 52mg/dL (8-27) Creatinine 1.83mg/dL (0.76-1.27) 1.79mg/dL (0.76-1.27) 1.75mg/dL (0.76-1.27) Estimat Glomerular Filtration Rate 39mL/min (>59) 40mL/min (>59) 41mL/min (>59) Glucose Level 348mg/dL (60-99) 273mg/dL (60-99) 247mg/dL (60-99) Calcium Level 7.9mg/dL (8.5-10.1) 8.0mg/dL (8.5-10.1) 7.9mg/dL (8.5-10.1) Procalcitonin 3.58ng/mL (0.00-0.08) 3.22ng/mL (0.00-0.08) Result Diagram: 01/09/17 0255 01/09/17 0255 Microbiology Laboratory Tests 72 Hours Test 01/06/17 19:59 01/07/17 03:10 01/08/17 03:00 01/09/17 02:55 Urine Color Yellow (YELLOW) Urine Appearance Hazy (CLEAR,HAZY) Urine pH 5.0 (5.0-8.0) Urine Specific [place] 1.020 (1.003-1.035) Urine Protein 30mg/dL (NEG,TRACE) Urine Glucose (UA) Negativemg/dL (NEGATIVE) Urine Ketones Negativemg/dL (NEGATIVE) Urine Occult Blood Small (NEGATIVE) Urine Nitrite Negative (NEGATIVE) Urine Bilirubin Negative (NEGATIVE) Urine Urobilinogen Normalmg/dL (NORMAL) Urine Leukocyte Esterase Negative (NEGATIVE) Urine RBC 0-2/hpf (0-2) Urine WBC 0-5/hpf (0-5) Urine Epithelial Cells Occasional/hpf (NONE-MOD) Urine Crystals Amorphous urates (NONE Urine Bacteria None/hpf (NONE-FEW) Urine Hyaline Casts None/lpf (NONE) Urine Granular Casts None seen (NONE SEEN) Urine Waxy Casts None seen (NONE SEEN) Urine Red Blood Cell Casts None seen (NONE SEEN) Urine White Blood Cell Casts None seen (NONE SEEN) Urine Mucus None seen (None Seen) Urine Trichomonas None seen (NONE SEEN) Urine Yeast None (NONE SEEN) Urinalysis Comment None Urine Culture Reflexed Not indicated White Blood Count 10.0th/mm3 (3.8-10.1) 10.9th/mm3 (3.8-10.1) 9.6th/mm3 (3.8-10.1) Red Blood Count 3.44mil/mm3 (4.40-5.80) 3.50mil/mm3 (4.40-5.80) 3.28mil/mm3 (4.40-5.80) Hemoglobin 10.2g/dL (13.8-17.2) 10.4g/dL (13.8-17.2) 9.5g/dL (13.8-17.2) Hematocrit 31.7% (41.0-50.0) 31.8% (41.0-50.0) 29.7% (41.0-50.0) Mean Corpuscular Volume 92.2fL (81-100) 90.9fL (81-100) 90.5fL (81-100) Mean Corpuscular Hemoglobin 29.7pg (27.0-35.0) 29.7pg (27.0-35.0) 29.0pg (27.0-35.0) Mean Corpuscular Hemoglobin Concent 32.2% (32.0-37.0) 32.7% (32.0-37.0) 32.0% (32.0-37.0) Red Cell Distribution Width 15.3% (12.3-15.4) 14.9% (12.3-15.4) 14.9% (12.3-15.4) Platelet Count 208bil/L (150-400) 287bil/L (150-400) 312bil/L (150-400) Neutrophils (%) (Auto) 73.2% (40-74) 77.9% (40-74) 74.0% (40-74) Lymphocytes (%) (Auto) 11.4% (14-46) 9.2% (14-46) 12.4% (14-46) Monocytes (%) (Auto) 12.6% (4-12) 10.9% (4-12) 11.5% (4-12) Eosinophils (%) (Auto) 2.2% (0-5) 1.3% (0-5) 1.6% (0-5) Basophils (%) (Auto) 0.1% (0-3) 0.2% (0-3) 0.1% (0-3) Prothrombin Time 38.9sec (8.1-12.5) 38.7sec (8.1-12.5) 43.1sec (8.1-12.5) Prothromb Time International Ratio 3.54ratio 3.53ratio 3.92ratio Sodium Level 134mEq/L (134-144) 133mEq/L (134-144) 136mEq/L (134-144) Potassium Level 4.8mEq/L (3.5-5.2) 4.7mEq/L (3.5-5.2) 4.4mEq/L (3.5-5.2) Chloride Level 102mEq/L (97-108) 102mEq/L (97-108) 106mEq/L (97-108) Carbon Dioxide Level 19mmol/L (18-29) 18mmol/L (18-29) 19mmol/L (18-29) Blood Urea Nitrogen 53mg/dL (8-27) 50mg/dL (8-27) 52mg/dL (8-27) Creatinine 1.83mg/dL (0.76-1.27) 1.79mg/dL (0.76-1.27) 1.75mg/dL (0.76-1.27) Estimat Glomerular Filtration Rate 39mL/min (>59) 40mL/min (>59) 41mL/min (>59) Glucose Level 348mg/dL (60-99) 273mg/dL (60-99) 247mg/dL (60-99) Calcium Level 7.9mg/dL (8.5-10.1) 8.0mg/dL (8.5-10.1) 7.9mg/dL (8.5-10.1) Procalcitonin 3.58ng/mL (0.00-0.08) 3.22ng/mL (0.00-0.08) X-Rays, CTs and MRIs CT brain 1. No acute intracranial abnormalities. 2. Cerebral volume loss and chronic microvascular ischemic change Dictated by: Milton Bardales M.D. on 01/03/2017 at 12:54 Chest x-ray IMPRESSION: No acute cardiopulmonary disease. Dictated by: Milton Bardales M.D. on 01/03/2017 at 13:55 Venous duplex IMPRESSION: No deep venous thrombosis in the right lower extremity. Dictated by: Milton Bardales M.D. on 01/03/2017 at 12:40 01/04 PROCEDURE: X-RAY RIGHT FOOT COMPLETE, MINIMUM THREE VIEWS ([id number]) IMPRESSION: Worsening osteomyelitis involving the first metatarsal head with gas within the adjacent soft tissues as well as throughout the dorsal aspect of the soft tissues. Although the gas may be related to recent instrumentation, developing necrotizing fasciitis cannot be excluded and clinical correlation and followup is recommended. Dr. Key given results at 1108 hours on 01/05/2017. Dictated by: Sung Tejada [facility] Interpreted: Rhona Paige MD on 01/05/2017 at 10:56 01/05 PROCEDURE: X-RAY RIGHT FOOT COMPLETE, MINIMUM THREE VIEWS ([id number]) IMPRESSION: Interval postoperative changes of the right forefoot as described. No radiopaque foreign bodies. Dictated by: Ronal Galindo M.D. on 01/05/2017 at 15:58 01/06 PROCEDURE: US RENAL SONOGRAM 1. Left renal inferior exophytic cyst otherwise normal kidneys. 2. 707 cc prevoid urinary volume and postvoid residual cannot be assessed. Cardiac Echo Impressions Last echo 04/06/16 Interpretation Summary Left ventricular wall thickness is mild-moderately increased. Assessment of diastolic parameters indicates a relaxation abnormality of the left ventricle, consistent with normal filling pressures. The right ventricle is normal in size and function. Pulmonary artery pressures cannot be estimated because of the lack of a measurable TR jet velocity. Both atria are normal in size. There is no significant valvular heart disease. The aortic root is normal size. The aortic arch is normal in size. TTE 01/05/17 The study quality was technically difficult. A contrast injection of Definity was performed to improve assessment of LV function. Left ventricular ejection fraction is estimated to be 50%. Apical hypokinesis is suspected, LVEF is slightly lower on this exam. The right ventricle is normal size. Right ventricular systolic function is mildly reduced. The right ventricular systolic pressure is estimated at 25 mmHg assuming a right atrial pressure of 8 mm Hg. In an off axis view there is an echodensity along the superior aspect of the IAS, this could be an artifact. A V[place] can hlep elucidate this further, or a limited echo to re evaluate the RA may be requested. [place] 01/07/17 The left ventricular ejection fraction is grossly normal. The interatrial septum is intact with no evidence for an atrial septal defect. No evidence of endocarditis. No mass seen in RA, TTE finding was artifactual. Assessment & Plan 71-year-old male with recent amputation of his right big toe and insulin- dependent diabetes who presents after being found down, with hypoglycemia and increased erythema of the right lower extremity consistent with cellulitis. RLE osteomyelitis and cellulitis, active Per right foot x-ray, now status post 2nd digit amputation by Dr. Key. May require more debridement. Foot cultures grew staph aureus. - Has been on Zosyn since 01/04/17 till 01/08/17 - Ancef from 01/08/[address] Edwards Recommendation. he should take until 02/14/17 - Appreciate consults by Dr. Key, Dr. Edwards and PT. - PT for help with moving in bed as patient strength worsening throughout admission. - Will require discharge to SNF for treatment - Per ID, patient cleared for PICC. He may require dialysis in the future and will consult with nephrology tomorrow about whether PICC or other indwelling access device is preferred. Type 2 Diabetes with peripheral neuropathy, diabetic foot ulcer, Nephropathy and no proliferative retinopathy; present on admission; ongoing - High dose correction Lispro algorithm - A1c 8.9 - Sepsis also likely contributed to poor control. - Lantus increased to 20 units nightly, 10 units in the morning. - Hold Victoza sq Altered mental status and Delirium, resolved Patient has decline in mental function after [place]. Mentation seems to be declining as patient is unable to respond correctly where he is or what year it is. He also has been having slurred speech. It should be re stated that prior to admission, patient had fallen and stated he did hit his head on this head board and had his head wedged in between. Head CT at that time showed no acute intracranial abnormalities. - DDx: Includes stroke secondary to hemorrhage, medication side effects of versed and also considering reduced clearance of versed due to poor kidney function, encephalitis. - Likely secondary to medication side effects, but given history, ordered stat CT head. - Head CT unremarkable. Will decrease pain medications, cluster nursing care, ask for frequent reorientation and make sure there is daylight in room during days. - In the afternoon of 01/09/17, evaluated patient and his mentation is back to baseline when I first saw him on 01/04/17. The AMS and delirium was likely medication related as patient was given fentanyl for pain, versed for [place], flexiril for spasms. This happened within a short time period on top of poor kidney function. Shortness of breath, resolved -Patient having increased coughing and shortness of breath 01/08/17. -Chest X-ray shows impression is Bibasilar atelectasis versus aspiration or pneumonia. - Patient has been noted to be aspirating per speech evaluation and should have supervised PO intake. - Patient currently on Ancef for osteomyelitis - Acapella and Incentive spirometry - Recheck CBC Acute on chronic kidney injury; present on admission; Resolved - Baseline Cr 1.3-1.7. Due to Hypertensive nephrosclerosis and Diabetic nephropathy - Renal ultrasound showed Pre-void bladder volume is 778 mL. - Patient has Milton as of 01/06/17. Improved BUN and Cr afterwards. - avoid nephrotoxic insults - monitor urine output - 2-3L on admission - Fluids discontinued 01/08/17 - Cr at baseline 01/09/17 Hypertension; present on admission; ongoing - Losartan 50 mg daily - Amlodipine 10 mg daily - Lasix 20 mg daily Paroxysmal Atrial fibrillation on Coumadin; present on admission; stable - monitored on telemetry till 01/09/17. Patient out of A. fib for several days prior. - continue rate control with Carvedilol - Continue warfarin per pharmacy - Daily INR. Ordered 2 units FFP to reduce INR below 2 prior to I&D. Patient only recieved 1 unit. Held second unit after surgery on 01/05. - Consider adding Diltiazem drip if sustained elevated HR. Severe Sepsis - Resolved Secondary to RLE cellulitis and bacteremia found on admission. Patient on admission had leukocytosis of 24.3, tachycardia and tachypnea. Leukocytosis has been improving daily now down to 13.2. RLE very hot, erythematous and edematous , with fluctuant mass on base of RLE 1st digit. This has been improving throughout his admission with treatment initially on ancef and now on zosyn. Recent cultures in September show MSSA pansensitive. Nasal MRSA swab negative. Blood cultures have also been grown gram positive cocci likely to be staph aureus. - Patient no longer tachycardic or tachypneic. Leukocytosis is down to 12.3. - Appreciate Dr. Key consult and ID consult. - I/D done 01/[address] Key drained approximately 50 cc of pustular discharge. Patient had extensive debridement and amputation of right second toe in OR 01/05. - Discontinued Ancef 01/05/17 - Continued zosyn, start date 01/04/17. Will transition to Ancef + Flagyl 01/[address] Edwards recommendation. Plan is for treatment of antibiotics for 6 weeks for osteomyelitis. - TTE showed EF of 50%, apical hypokineseis and an echodensity along the superior aspect of the IAS, which could be an artifact. [place] would help elucidate this further. Per conversation with caridiologist, differential includes myxoma, so will proceed with [place] for 01/07. - Follow CBC, BMP -Repeat procalcitonin trended down as above Hyperlipidemia - continue Atorvastatin 40 mg daily Acquired hypothyroidism - continue Synthroid 75 mcg daily Hypoglycemia, due to noncompliance; present on admission; Resolved - Pt has been without his glucometer; when obtained reading was "very high" likely due to above infection - Patient overdosed on Lantus, taking 2-3 times more than prescribed - Continue to monitor glucose Mild troponin elevation; present on admission; Resolved -Likely due to acute kidney injury -Now wnl Anion gap metabolic acidosis with lactic acidosis; present on admission; Resolved -Anion gap improved from 20 to 12, lactic acid trended to 1.0. - IV fluids were used initially when patient had limited PO intake. Acetaminophen for mild pain when necessary. Bowel regimen Senna and MiraLAX scheduled and PRN. Zofran when necessary for nausea and vomiting. High-risk medications: Warfarin VTE Mechanical Devices: Intermittant Pneumatic CD Time spent 30 minutes Attending Statement I have seen and evaluated patient at bedside in addition to directly supervising care provided by resident physician. I agree with above documentation from 01/09/[address] Andre. Case additionally discussed with [employer] redevelopment site manager Dr. Key who has transitioned patient back to Zosyn therapy given her poor response to Ancef. Vern Andre DO Jan 09, 2017 07:00 Shoaib Nur DO Jan 10, 2017 16:38
--- NOTE | 2017-01-09 17:01 | NUR ---
Mentation/Wound Pt alert and oriented this shift, appropriately conversant. RLE dsg changed by Turning Sander Tender this afternoon. LLE dsg changed per orders. VSS. Tele d/c'd at 1650, per MD orders. Denies pain/discomfort.
--- NOTE | 2017-01-09 17:09 | NUR ---
neuro Pt mostly alert and oriented and answers questions appropriately but did note to have some visual hallucinations for approximately 30 min. as he carried on a conversation with no one in the room for a prolonged period of time.
[2017-01-10] MEDS: Sodium Chloride LOK Flush 10 mL Syringe IVFLUSH SCH ×3 (00:30→16:30)
[2017-01-10] MEDS: Piperacillin-Tazo 3.375 Gm Inj 3.375 GM in Dextrose 5% Minibag Plus 50 ML IV SCH ×3 (00:46→17:06)
[2017-01-10 03:13] LABS: Mean Corpuscular Hemoglobin 29.1 pg (27.0-35.0); Mean Corpuscular Volume 91.5 fL (81-100)
[2017-01-10 03:31] LABS: INR 1.86 ratio
--- NOTE | 2017-01-10 04:59 | NUR ---
Wound/activity Uneventful shift, pleasant and cooperative, no episodes of confusion noted this shift, patient on bed rest and non-weight bearing both feet, denied pain this shift, vital signs stable, on 1L O2 via NC, right foot wound wrapped and small amount of drainage noted on dressing, will continue to monitor. Addendum: 01/10/17 at 0502 by JENNIFER REYES RN Amended: Links added.
[2017-01-10 05:59] VITALS: BP 140/84; PULSE 70; RESP 18; O2SAT 98
--- NOTE | 2017-01-10 07:42 | PCM.PHAPRO ---
Progress Warfarin dosing WARFARIN DOSING PER PHARMACY [facility] WF GSF GSF DFF DFF Date Jan 04Jan 05Jan 06Jan 07Jan 08Dec 10-Jan 10-Jan INR 1.7 2.24 3.69 3.54 3.92 1.86 INR change 0.54 1.45 3.54 3.92 -2.06 Warf Dose 5 2MG HOLD HOLD HOLD 2 MG Subtherapeutic INR following held doses for previously high levels. Will dose with warfarin 2 mg today and trend response. -[place] Fairchild, PharmD Modesto Fairchild Jan 10, 2017 07:42
[2017-01-10] MEDS: Insulin LISPRO 300 Unit/3 mL Inj SUBQ SCH ×4 (07:58→21:08)
[2017-01-10] MEDS: Insulin GLARgine 100 Unit/mL Syringe SUBQ SCH ×2 (07:58→21:07)
[2017-01-10 08:00] VITALS: BP 166/75; PULSE 75; RESP 16; O2SAT 98
[2017-01-10] MEDS ORDERED: Nystatin 100,000 Unit/Gm 15 Gm Powder TOPICAL PRN (11:05)
--- NOTE | 2017-01-10 11:29 | PROG NOTE ---
[address] [address] PROGRESS NOTE PATIENT: DARA OLIVAS : 1945 MR#: [id number] ADMIT: 01/03/2017 JOB ID: [id number] DATE: . SUBJECTIVE: The patient is seen for infected ulcer, right foot. He denies any fever or chills. He is much more lucid today and is answering questions appropriately. He denies any pain, fever, or chills. PHYSICAL EXAMINATION: Blood pressure 138/99, pulse 68, respirations 17, temperature 37, pulse oximetry 97% on room air. Lower extremity exam dressing is intact with a moderate amount of serous drainage. There is mild erythema and swelling around the wound margins around the proximal margins of the wound. I am able to express pus along the lateral border of the mid right foot as well as from the proximal aspect of the wound around the extensor retinaculum. There is yellow discolored bone noted at the base of the second metatarsal and cuneiform. The bone at the 2nd metatarsal neck is also yellowish brown, discolored and also along the neck of the 3rd metatarsal. There is a section of approximately 2 cm along the lateral border of the skin, which is purple non-blanchable and atrophied. There is increased pink granulation tissue within the wound base. LABORATORY DATA: WBC 9.6, hemoglobin 9.5, hematocrit 29.7, neutrophils 74, lymphocytes 12.4. Sodium 136, potassium 4.4, chloride 106. Carbon dioxide 19. BUN 52. Creatinine 1.75. Estimated GFR 41. Glucose 247. PT 43.1. INR is 3.92. Wound culture from January 04 and January 05 shows oxacillin susceptible resistant Staph aureus. No anaerobes isolated. ASSESSMENT AND PLAN: Cellulitis with osteomyelitis right foot. He continues to have pustular drainage around the extensor retinaculum the area and lateral border of his foot, although this drainage from the lateral border may also be due to dependent drainage and pustular discharge from his ankle. There is, however, some necrotic tissue along the lateral border and I debrided this using a curette and iris scissors. The infected bone continues to demarcate as there is increased yellow discoloration noted at the second metatarsal base and even at the third metatarsal base. The bone at the neck of the second metatarsal is also becoming more yellow and discolored. The neck and the proximal shaft of the 3rd metatarsal is also exposed and slightly yellow in color. I will try to locally debride the bone first to see if the patient can avoid having a below-knee amputation as it is not just the metatarsals which are involved. [place] amputation would not be very functional, therefore the patient would be looking at a below-knee amputation. Due to the patient's living situation at [place], even a below-knee amputation would be difficult for him to be ambulatory with as he has a history of diabetic neuropathic ulcerations on his left foot. I spoke with Dr. Edwards today about increasing the antibiotic coverage to Zosyn which would cover not only gram positive organisms, but gram-negative and anaerobes. Although anaerobes have not been isolated from cultures for gram-negatives his infection does not appear to be completely resolved with Ancef alone. I will await the response to Zosyn before doing any more aggressive debridement in the operating room, although I do plan to take him to the OR for further bone debridement in the future. The nonviable and fibrotic tissue sharply excised through skin edges through healthy subcutaneous tissue, and I excised a small amount of bone at the neck of the second metatarsal. The small amount of bone that I took from the neck however did not bleed. A more definitive proximal cut will be needed in the future, however, wanted to give it more time to get a better sense of what bone is viable and what is not. The ulceration was redressed using quarter-inch Iodoform gauze, which was packed into the lateral part of the wound Hydrogel, 4 x 4 gauze, ABD, and Kerlix. Dressings continued to be changed twice daily. I may also order an MRI, but we will see how does with the change in antibiotics first. He does have elevated creatinine which would limit his use of contrast with the MRI.
--- NOTE | 2017-01-10 11:50 | PROG NOTE ---
[address] [address] PROGRESS NOTE PATIENT: DARA OLIVAS : 1945 MR#: [id number] ADMIT: 01/03/2017 JOB ID: [id number] DATE: 01/10/2017 SUBJECTIVE: The patient is seen for infected ulcer, right foot. He denies any pain, fever, or chills. PHYSICAL EXAMINATION: Blood pressure 166/75, pulse 75, respirations 16, temperature 36.7. Pulse oximetry 98% via nasal cannula at 1 L/minute. Dressing is intact with moderate amount of serosanguineous and slightly green drainage. There is mild erythema and swelling around the proximal margin of the wound as well as the lateral border. This is unchanged from yesterday. There is no other erythema and swelling however along the distal or medial aspect of the ulcer. A small amount of pustular drainage around the proximal margin of the ulcer and lateral border. This is decreased from yesterday, however I am seeing the patient earlier in the day. There is increased pink granulation tissue, however in the other portions of the wound from yesterday. The tissues appear healthier today. The cuneiform has some pink granulation tissue forming over the area, however the second and third metatarsal bases are still yellow, discolored, and there is no granulation tissue forming over these areas. The distal end of the second metatarsal remained yellow all and yellowish brown, discolored. However the third metatarsal looks slightly more normal in color today. There is no overlying granulation tissue, however. The skin edges appeared to be viable and there is no new necrotic areas. It was noted that the extensor digitorum longus cut end was visible around the extensor retinaculum and it was friable and discolored. I was able to express pustular discharge from the area underneath the extensor retinaculum. Neurovascular status is intact to all remaining toes of the right foot. LABORATORY DATA: WBC 10.7, hemoglobin 9.6, hematocrit 30.2, platelets 344. Sodium 135, potassium 5.1. Chloride 104, carbon dioxide 18. BUN 55, creatinine 1.86. Estimated GFR 38. Glucose 248. Calcium 7.9. Total protein 5.4. Albumin 1.9. ASSESSMENT AND PLAN: 1. Cellulitis with osteomyelitis right foot. She continues to have some pustular drainage from the lateral portion of the foot as well as around the ankle area. I noted that the remaining portion of the extensor digitorum longus which was within the area underneath the retinaculum where the pus was coming from. I excised approximately 4 mm that appeared to be abnormal in appearance. Also debrided down to healthy subcutaneous tissue along the lateral border of the foot using a tissue nipper down to healthy bleeding tissue. The area was then copiously flushed with normal saline and re-packed using a quarter-inch Iodoform gauze. The area of the cuneiform is now looking healthier in color as there is granulation tissue over this area. I will do some local debridement of bone at the second and third metatarsals to see if removing the bone down to healthy bleeding bone will help clear up the infection. The second metatarsal will also need more proximal resection, however I will plan for that later this week. This will give me more time to see if the third metatarsal needs to be resected as well. We will continue with the Zosyn and see how the wound responds. The area is redressed using quarter-inch Iodoform packing, along the lateral border of the foot and the remaining ulceration was re-dressed using Hydrogel, 4 x 4 gauze, and Kerlix wrap. The patient tolerated the procedure well and hemostasis was achieved with pressure and silver nitrate. 2. Decreased protein levels. I discussed with the patient the importance of increasing his protein intake as his albumin is low. 3. Weightbearing status. The patient can ambulate in a surgical shoe with touchdown weightbearing on his heel. I would, however, limit his activity level to less than 100 feet.
--- NOTE | 2017-01-10 12:06 | PCM.PNMED ---
Subjective Date of Service Jan 10, 2017 Subjective Overnight Events: None Subjective: Patient resting in bed comfortably in no acute distress. He has nearly gained complete ability to mentate. Alert and oriented x3. His strength has improved a little. He is still having some coughing, but it has improved. He has not had a bowel movement for 5 days. He denies headache, dizziness, chest pain, shortness of breath, diarrhea, nausea, vomiting. Exam Vital Signs Vital Sign - Last Date Time Temp Pulse Resp B/P Pulse Ox O2 Delivery O2 Flow Rate FiO2 01/10/17 05:59 37.3 70 18 140/84 98 Nasal Cannula 1.00 Intake and Output 01/09/17 01/09/17 01/10/17 Cumulative From/Thru 15:00 23:00 07:00 01/03/17 11:59 - 01/10/17 06:05 Intake Total 1414 ml 832 ml 36601 ml Output Total 350 ml 400 ml 7155 ml Balance 1064 ml 432 ml 85123 ml Intake Oral 1250 ml 700 ml 6386 ml IV Total 164 ml 132 ml 97681 ml TPN/PPN 100 ml Output Urine Total 350 ml 400 ml 7125 ml Estimated Blood Loss 30 ml # Voids 3 # Bowel Movements 2 Exam General: No acute distress, well-developed, well-nourished. Mention is back to baseline. HEENT: Normocephalic, Anicteric sclerae, moist conjunctivae Cardiovascular: Regular rate and rhythm with no murmurs, rubs, or gallops appreciated Pulmonary: Rales at left lung base, improved. Normal respiratory effort with no use of accessory muscles. Abdomen: Bowel tones present. Soft, nontender, nondistended. Extremities: RLE edema, with amputated 1st and 2nd digit on right foot. with wrapping over RLE. Skin: hot, erythematous on RLE - this have improved over the last few days of treatment and limited to about the mid tibia on the right all the way distally; Ulcer on Left ball of foot. Neurological: CN II - XII intact Psychiatric: Normal mood and affect. Alert and oriented to person and time. IVs and Medications Medications Reviewed: Medications were reviewed in detail Lab and Diagnostics Result Diagram: 01/10/17 0235 01/10/17 0235 Microbiology Laboratory Tests 72 Hours Test 01/06/17 19:59 01/07/17 03:10 01/08/17 03:00 01/09/17 02:55 Urine Color Yellow (YELLOW) Urine Appearance Hazy (CLEAR,HAZY) Urine pH 5.0 (5.0-8.0) Urine Specific [place] 1.020 (1.003-1.035) Urine Protein 30mg/dL (NEG,TRACE) Urine Glucose (UA) Negativemg/dL (NEGATIVE) Urine Ketones Negativemg/dL (NEGATIVE) Urine Occult Blood Small (NEGATIVE) Urine Nitrite Negative (NEGATIVE) Urine Bilirubin Negative (NEGATIVE) Urine Urobilinogen Normalmg/dL (NORMAL) Urine Leukocyte Esterase Negative (NEGATIVE) Urine RBC 0-2/hpf (0-2) Urine WBC 0-5/hpf (0-5) Urine Epithelial Cells Occasional/hpf (NONE-MOD) Urine Crystals Amorphous urates (NONE Urine Bacteria None/hpf (NONE-FEW) Urine Hyaline Casts None/lpf (NONE) Urine Granular Casts None seen (NONE SEEN) Urine Waxy Casts None seen (NONE SEEN) Urine Red Blood Cell Casts None seen (NONE SEEN) Urine White Blood Cell Casts None seen (NONE SEEN) Urine Mucus None seen (None Seen) Urine Trichomonas None seen (NONE SEEN) Urine Yeast None (NONE SEEN) Urinalysis Comment None Urine Culture Reflexed Not indicated White Blood Count 10.0th/mm3 (3.8-10.1) 10.9th/mm3 (3.8-10.1) 9.6th/mm3 (3.8-10.1) Red Blood Count 3.44mil/mm3 (4.40-5.80) 3.50mil/mm3 (4.40-5.80) 3.28mil/mm3 (4.40-5.80) Hemoglobin 10.2g/dL (13.8-17.2) 10.4g/dL (13.8-17.2) 9.5g/dL (13.8-17.2) Hematocrit 31.7% (41.0-50.0) 31.8% (41.0-50.0) 29.7% (41.0-50.0) Mean Corpuscular Volume 92.2fL (81-100) 90.9fL (81-100) 90.5fL (81-100) Mean Corpuscular Hemoglobin 29.7pg (27.0-35.0) 29.7pg (27.0-35.0) 29.0pg (27.0-35.0) Mean Corpuscular Hemoglobin Concent 32.2% (32.0-37.0) 32.7% (32.0-37.0) 32.0% (32.0-37.0) Red Cell Distribution Width 15.3% (12.3-15.4) 14.9% (12.3-15.4) 14.9% (12.3-15.4) Platelet Count 208bil/L (150-400) 287bil/L (150-400) 312bil/L (150-400) Neutrophils (%) (Auto) 73.2% (40-74) 77.9% (40-74) 74.0% (40-74) Lymphocytes (%) (Auto) 11.4% (14-46) 9.2% (14-46) 12.4% (14-46) Monocytes (%) (Auto) 12.6% (4-12) 10.9% (4-12) 11.5% (4-12) Eosinophils (%) (Auto) 2.2% (0-5) 1.3% (0-5) 1.6% (0-5) Basophils (%) (Auto) 0.1% (0-3) 0.2% (0-3) 0.1% (0-3) Prothrombin Time 38.9sec (8.1-12.5) 38.7sec (8.1-12.5) 43.1sec (8.1-12.5) Prothromb Time International Ratio 3.54ratio 3.53ratio 3.92ratio Sodium Level 134mEq/L (134-144) 133mEq/L (134-144) 136mEq/L (134-144) Potassium Level 4.8mEq/L (3.5-5.2) 4.7mEq/L (3.5-5.2) 4.4mEq/L (3.5-5.2) Chloride Level 102mEq/L (97-108) 102mEq/L (97-108) 106mEq/L (97-108) Carbon Dioxide Level 19mmol/L (18-29) 18mmol/L (18-29) 19mmol/L (18-29) Blood Urea Nitrogen 53mg/dL (8-27) 50mg/dL (8-27) 52mg/dL (8-27) Creatinine 1.83mg/dL (0.76-1.27) 1.79mg/dL (0.76-1.27) 1.75mg/dL (0.76-1.27) Estimat Glomerular Filtration Rate 39mL/min (>59) 40mL/min (>59) 41mL/min (>59) Glucose Level 348mg/dL (60-99) 273mg/dL (60-99) 247mg/dL (60-99) Calcium Level 7.9mg/dL (8.5-10.1) 8.0mg/dL (8.5-10.1) 7.9mg/dL (8.5-10.1) Procalcitonin 3.58ng/mL (0.00-0.08) 3.22ng/mL (0.00-0.08) X-Rays, CTs and MRIs CT brain 1. No acute intracranial abnormalities. 2. Cerebral volume loss and chronic microvascular ischemic change Dictated by: Milton Bardales M.D. on 01/03/2017 at 12:54 Chest x-ray IMPRESSION: No acute cardiopulmonary disease. Dictated by: Milton Bardales M.D. on 01/03/2017 at 13:55 Venous duplex IMPRESSION: No deep venous thrombosis in the right lower extremity. Dictated by: Milton Bardales M.D. on 01/03/2017 at 12:40 01/04 PROCEDURE: X-RAY RIGHT FOOT COMPLETE, MINIMUM THREE VIEWS ([id number]) IMPRESSION: Worsening osteomyelitis involving the first metatarsal head with gas within the adjacent soft tissues as well as throughout the dorsal aspect of the soft tissues. Although the gas may be related to recent instrumentation, developing necrotizing fasciitis cannot be excluded and clinical correlation and followup is recommended. Dr. Key given results at 1108 hours on 01/05/2017. Dictated by: Sung Tejada RROrlando Interpreted: Rhona Paige MD on 01/05/2017 at 10:56 01/05 PROCEDURE: X-RAY RIGHT FOOT COMPLETE, MINIMUM THREE VIEWS ([id number]) IMPRESSION: Interval postoperative changes of the right forefoot as described. No radiopaque foreign bodies. Dictated by: Ronal Galindo M.D. on 01/05/2017 at 15:58 01/06 PROCEDURE: US RENAL SONOGRAM 1. Left renal inferior exophytic cyst otherwise normal kidneys. 2. 707 cc prevoid urinary volume and postvoid residual cannot be assessed. Cardiac Echo Impressions Last echo 04/06/16 Interpretation Summary Left ventricular wall thickness is mild-moderately increased. Assessment of diastolic parameters indicates a relaxation abnormality of the left ventricle, consistent with normal filling pressures. The right ventricle is normal in size and function. Pulmonary artery pressures cannot be estimated because of the lack of a measurable TR jet velocity. Both atria are normal in size. There is no significant valvular heart disease. The aortic root is normal size. The aortic arch is normal in size. TTE 01/05/17 The study quality was technically difficult. A contrast injection of Definity was performed to improve assessment of LV function. Left ventricular ejection fraction is estimated to be 50%. Apical hypokinesis is suspected, LVEF is slightly lower on this exam. The right ventricle is normal size. Right ventricular systolic function is mildly reduced. The right ventricular systolic pressure is estimated at 25 mmHg assuming a right atrial pressure of 8 mm Hg. In an off axis view there is an echodensity along the superior aspect of the IAS, this could be an artifact. A [place] can hlep elucidate this further, or a limited echo to re evaluate the RA may be requested. [place] 01/07/17 The left ventricular ejection fraction is grossly normal. The interatrial septum is intact with no evidence for an atrial septal defect. No evidence of endocarditis. No mass seen in RA, TTE finding was artifactual. Assessment & Plan 71-year-old male with recent amputation of his right big toe and insulin- dependent diabetes who presents after being found down, with hypoglycemia and increased erythema of the right lower extremity consistent with cellulitis. RLE Staph Aureus osteomyelitis and cellulitis, active Per right foot x-ray, now status post 2nd digit amputation by Dr. Key. May require more debridement. Foot cultures grew staph aureus. - Has been on Zosyn since 01/04/17 till 01/08/17 - Ancef from 01/08/[address] Edwards Recommendation, continue to 02/14/17 - Appreciate consults by Dr. Key, Dr. Edwards and PT. - PT for help with moving in bed as patient strength worsening throughout admission. - Will require discharge to SNF for treatment - Per ID, patient cleared for PICC. He may require dialysis in the future and will consult with nephrology tomorrow about whether PICC or other indwelling access device is preferred. Type 2 Diabetes with peripheral neuropathy, diabetic foot ulcer, Nephropathy and no proliferative retinopathy; present on admission; ongoing - High dose correction Lispro algorithm - A1c 8.9 - Sepsis also likely contributed to poor control. - Lantus increased to 20 units nightly, 10 units in the morning. - Hold Victoza sq Altered mental status and Delirium, resolved Patient has decline in mental function after [place]. Mentation seems to be declining as patient is unable to respond correctly where he is or what year it is. He also has been having slurred speech. It should be re stated that prior to admission, patient had fallen and stated he did hit his head on this head board and had his head wedged in between. Head CT at that time showed no acute intracranial abnormalities. - DDx: Includes stroke secondary to hemorrhage, medication side effects of versed and also considering reduced clearance of versed due to poor kidney function, encephalitis. - Likely secondary to medication side effects, but given history, ordered stat CT head. - Head CT unremarkable. Will decrease pain medications, cluster nursing care, ask for frequent reorientation and make sure there is daylight in room during days. - In the afternoon of 01/09/17, evaluated patient and his mentation is back to baseline when I first saw him on 01/04/17. The AMS and delirium was likely medication related as patient was given fentanyl for pain, versed for [place], flexiril for spasms. This happened within a short time period on top of poor kidney function. Shortness of breath, resolved -Patient having increased coughing and shortness of breath 01/08/17. -Chest X-ray shows impression is Bibasilar atelectasis versus aspiration or pneumonia. - Patient has been noted to be aspirating per speech evaluation and should have supervised PO intake. - Patient currently on Ancef for osteomyelitis - Acapella and Incentive spirometry - Recheck CBC Acute on chronic kidney injury; present on admission; Resolved - Baseline Cr 1.3-1.7. Due to Hypertensive nephrosclerosis and Diabetic nephropathy - Renal ultrasound showed Pre-void bladder volume is 778 mL. - Patient has Milton as of 01/06/17. Improved BUN and Cr afterwards. - avoid nephrotoxic insults, monitor urine output - Fluids discontinued 01/08/17 Hypertension; present on admission; ongoing - Losartan 50 mg daily - Amlodipine 10 mg daily - Lasix 20 mg daily Paroxysmal Atrial fibrillation on Coumadin; present on admission; stable - monitored on telemetry till 01/09/17. Patient out of A. fib for several days prior. - continue rate control with Carvedilol - Continue warfarin per pharmacy - Daily INR. Ordered 2 units FFP to reduce INR below 2 prior to I&D. Patient only recieved 1 unit. Held second unit after surgery on 01/05. - Consider adding Diltiazem drip if sustained elevated HR. Severe Sepsis - Resolved Secondary to RLE cellulitis and bacteremia found on admission. Patient on admission had leukocytosis of 24.3, tachycardia and tachypnea. Leukocytosis has been improving daily now down to 13.2. RLE very hot, erythematous and edematous , with fluctuant mass on base of RLE 1st digit. This has been improving throughout his admission with treatment initially on ancef and now on zosyn. Recent cultures in September show MSSA pansensitive. Nasal MRSA swab negative. Blood cultures have also been grown gram positive cocci likely to be staph aureus. - Patient no longer tachycardic or tachypneic. Leukocytosis is down to 12.3. - Appreciate Dr. Key consult and ID consult. - I/D done 01/[address] Key drained approximately 50 cc of pustular discharge. Patient had extensive debridement and amputation of right second toe in OR 01/05. - Discontinued Ancef 01/05/17 - Continued zosyn, start date 01/04/17. Will transition to Ancef + Flagyl 01/[address] Edwards recommendation. Plan is for treatment of antibiotics for 6 weeks for osteomyelitis. - TTE showed EF of 50%, apical hypokineseis and an echodensity along the superior aspect of the IAS, which could be an artifact. [place] would help elucidate this further. Per conversation with caridiologist, differential includes myxoma, so will proceed with [place] for 01/07. - Follow CBC, BMP -Repeat procalcitonin trended down as above Hyperlipidemia - continue Atorvastatin 40 mg daily Acquired hypothyroidism - continue Synthroid 75 mcg daily Hypoglycemia, due to noncompliance; present on admission; Resolved - Pt has been without his glucometer; when obtained reading was "very high" likely due to above infection - Patient overdosed on Lantus, taking 2-3 times more than prescribed - Continue to monitor glucose Mild troponin elevation; present on admission; Resolved -Likely due to acute kidney injury -Now wnl Anion gap metabolic acidosis with lactic acidosis; present on admission; Resolved -Anion gap improved from 20 to 12, lactic acid trended to 1.0. - IV fluids were used initially when patient had limited PO intake. Acetaminophen for mild pain when necessary. Bowel regimen Senna and MiraLAX scheduled and PRN. Zofran when necessary for nausea and vomiting. SubQ heparin held for now. SCDs in place. High-risk medications: Warfarin Disposition: Likely here for > 2 midnights. Dependent upon osteomyelitis. Will be discharged to SNF when medically stable. Pain Evaluation: Adequate Pain Control VTE Mechanical Devices: Intermittant Pneumatic CD Time spent 30 minutes Attending Statement I have seen and evaluated patient at bedside addition to directly supervising care provided by resident physician Dr. Pereira. I agree with above documentation from evaluation on 01/10/2017 Please note patient has now been transitioned back to Zosyn on recommendation of Dr. Key, who felt limb infection had responded better to this medication and has noted significant worsening since transitioned to Ancef. This was conducted yesterday and subsequently patient has demonstrated some worsening of renal function, though this may only be an incidental fluctuation, we will continue to trend renal function in conjunction with close monitoring of foot infection. Continue to appreciate podiatry and infectious disease consultation. TRISH PEREIRA DO Jan 10, 2017 06:43 Shoaib Nur DO Jan 10, 2017 18:47
[2017-01-10 18:04] VITALS: BP 163/64; PULSE 74; RESP 18; O2SAT 97
--- NOTE | 2017-01-10 19:35 | NUR ---
Mentation.. pt has been alert and oriented thoughout shift. Wound care done to R foot per Dr Gaviria. Pt has had no fevers.
[2017-01-10 20:04] VITALS: BP 149/63; PULSE 74; RESP 18; O2SAT 99
[2017-01-10 23:22] VITALS: BP 166/69; PULSE 78; RESP 20; O2SAT 94
[2017-01-11] MEDS: Piperacillin-Tazo 3.375 Gm Inj 3.375 GM in Dextrose 5% Minibag Plus 50 ML IV SCH ×3 (01:03→16:53)
[2017-01-11] MEDS: Sodium Chloride LOK Flush 10 mL Syringe IVFLUSH SCH ×3 (01:03→16:30)
[2017-01-11 03:01] VITALS: BP 159/67; PULSE 78; RESP 20; O2SAT 93
[2017-01-11 04:10] LABS: INR 1.34 ratio
--- NOTE | 2017-01-11 05:58 | NUR ---
Dressing Dressing to R foot changed according to instructions, pt denies any pain during procedure or at any other time throughout the night. Pt A&O, pleasant and cooperative.
[2017-01-11 07:57] LABS: BASOPHILS % (AUTO) 0.2 % (0-3); EOSINOPHILS % (AUTO) 1.7 % (0-5); MONOCYTES % (AUTO) 7.5 % (4-12); Mean Corpuscular Hemoglobin 29.6 pg (27.0-35.0); Mean Corpuscular Volume 90.6 fL (81-100); NEUTROPHILS % (AUTO) 75.1 % (40-74); Platelet Count 385 bil/L (150-400)
[2017-01-11] MEDS: Insulin LISPRO 300 Unit/3 mL Inj SUBQ SCH ×5 (08:44→21:34)
[2017-01-11] MEDS: Insulin GLARgine 100 Unit/mL Syringe SUBQ SCH ×2 (08:47→21:33)
[2017-01-11 08:56] VITALS: BP 166/67; PULSE 86; RESP 20; O2SAT 96
--- NOTE | 2017-01-11 10:51 | PCM.PHAPRO ---
Progress Date of Service: Jan 11, 2017 Warfarin dosing Date Jan 04Jan 05Jan 06Jan 07Jan 08Dec 10-Jan 10-Jan 11-Jan INR 1.7 2.24 3.69 3.54 3.53 3.92 1.86 1.34 INR change 0.54 1.45 3.54 -0.01 0.39 -2.06 -0.52 Warf Dose 5 2MG HOLD HOLD HOLD HOLD 2 MG 3MG Elin Goldberg S PharmD Jan 11, 2017 10:51
--- NOTE | 2017-01-11 11:15 | NUR ---
NUTRITION ASSESSMENT: ASSESS: 71 YO M admitted for hypoglycemia and multiple falls. He is being followed by podiatry. He is s/p 2nd ray amputation, excision of the 1st metatarsal head and extensive debridement of diabetic foot infection and abscess, right foot. PO intake appears to be good. PMHX: DM, HTN, foot ulcer, CAD LABS: Reviewed. K+ 5.5, BUN 62, Cr 2.19, Glu 231, Ca 7.7, Alb 1.9 MEDS: Reviewed. Insulin, Coumadin, Lasix, Senna, Miralax. GI: BM x 1 (01/04) SKIN: dionte 14, podiatry following for foot wounds. Osteomyelitis/cellulitis of R foot. CURRENT WT: 100.1 kg, BMI 33.6 kg/m2, admit wt 98.2 kg, IBW 70 kg DIET: Soft, PO intake 50-100% ESTIMATED NEEDS: healing, BMI Calories: 1249-0934 kcal/day (22-25 kcal/kg BW) Protein: 85-105 g/day (1.2-1.5 g/kg IBW) NUTRITION DIAGNOSIS: 1.) Increased kcal/pro needs related to increased nutrient needs for healing as evidence by multiple foot wounds/surgery.-PERSISTS. NUTRITION INTERVENTION: 1.) Diet per ST 2.) Inpatient DM diet education provided 01/07- pt is already signed up for oupt DM education 3.) Continue vanilla Glucerna on L tray. MONITOR/EVALUATE: PO intake, wounds, labs, wt, POC, GI/nutrition status. Follow per moderate nutrition risk guidelines.
[2017-01-11 12:30] VITALS: BP 152/56; PULSE 74; RESP 18; O2SAT 99
--- NOTE | 2017-01-11 14:54 | PCM.PNMED ---
Subjective Date of Service Jan 11, 2017 Subjective Overnight Events: None Subjective: Patient resting in bed comfortably in no acute distress. His strength has improved a little, but still not at baseline. He is still having some coughing, but it has improved. He has not had a bowel movement for 7 days. He denies headache, dizziness, chest pain, shortness of breath, diarrhea, nausea , vomiting. Exam Vital Signs Vital Sign - Last Date Time Temp Pulse Resp B/P Pulse Ox O2 Delivery O2 Flow Rate FiO2 01/11/17 03:01 37.3 78 20 159/67 93 Room Air 01/10/17 18:04 1.00 Intake and Output 01/10/17 01/10/17 01/11/17 Cumulative From/Thru 15:00 23:00 07:00 01/03/17 11:59 - 01/11/17 06:13 Intake Total 887 ml 447 ml 24435 ml Output Total 450 ml 400 ml 8005 ml Balance 437 ml 47 ml 20448 ml Intake Oral 750 ml 300 ml 7436 ml IV Total 137 ml 147 ml 04467 ml TPN/PPN 100 ml Output Urine Total 450 ml 400 ml 7975 ml Estimated Blood Loss 30 ml # Voids 3 # Bowel Movements 2 Exam General: No acute distress, well-developed, well-nourished. Mention is back to baseline. HEENT: Normocephalic, Anicteric sclerae, moist conjunctivae Cardiovascular: Regular rate and rhythm with no murmurs, rubs, or gallops appreciated Pulmonary: Lungs clear to auscultation bilaterally. Normal respiratory effort with no use of accessory muscles. Abdomen: Bowel tones present. Soft, nontender, nondistended. Extremities: RLE edema, with amputated 1st and 2nd digit on right foot. with wrapping over RLE. Skin: hot, erythematous on RLE - this have improved over the last few days of treatment and limited to about the mid tibia on the right all the way distally; Ulcer on Left ball of foot. Neurological: CN II - XII intact Psychiatric: Normal mood and affect. Alert and oriented to person and time. Lab and Diagnostics Result Diagram: 01/10/17 0235 01/10/17 0235 Microbiology Laboratory Tests 72 Hours Test 01/06/17 19:59 01/07/17 03:10 01/08/17 03:00 01/09/17 02:55 Urine Color Yellow (YELLOW) Urine Appearance Hazy (CLEAR,HAZY) Urine pH 5.0 (5.0-8.0) Urine Specific [place] 1.020 (1.003-1.035) Urine Protein 30mg/dL (NEG,TRACE) Urine Glucose (UA) Negativemg/dL (NEGATIVE) Urine Ketones Negativemg/dL (NEGATIVE) Urine Occult Blood Small (NEGATIVE) Urine Nitrite Negative (NEGATIVE) Urine Bilirubin Negative (NEGATIVE) Urine Urobilinogen Normalmg/dL (NORMAL) Urine Leukocyte Esterase Negative (NEGATIVE) Urine RBC 0-2/hpf (0-2) Urine WBC 0-5/hpf (0-5) Urine Epithelial Cells Occasional/hpf (NONE-MOD) Urine Crystals Amorphous urates (NONE Urine Bacteria None/hpf (NONE-FEW) Urine Hyaline Casts None/lpf (NONE) Urine Granular Casts None seen (NONE SEEN) Urine Waxy Casts None seen (NONE SEEN) Urine Red Blood Cell Casts None seen (NONE SEEN) Urine White Blood Cell Casts None seen (NONE SEEN) Urine Mucus None seen (None Seen) Urine Trichomonas None seen (NONE SEEN) Urine Yeast None (NONE SEEN) Urinalysis Comment None Urine Culture Reflexed Not indicated White Blood Count 10.0th/mm3 (3.8-10.1) 10.9th/mm3 (3.8-10.1) 9.6th/mm3 (3.8-10.1) Red Blood Count 3.44mil/mm3 (4.40-5.80) 3.50mil/mm3 (4.40-5.80) 3.28mil/mm3 (4.40-5.80) Hemoglobin 10.2g/dL (13.8-17.2) 10.4g/dL (13.8-17.2) 9.5g/dL (13.8-17.2) Hematocrit 31.7% (41.0-50.0) 31.8% (41.0-50.0) 29.7% (41.0-50.0) Mean Corpuscular Volume 92.2fL (81-100) 90.9fL (81-100) 90.5fL (81-100) Mean Corpuscular Hemoglobin 29.7pg (27.0-35.0) 29.7pg (27.0-35.0) 29.0pg (27.0-35.0) Mean Corpuscular Hemoglobin Concent 32.2% (32.0-37.0) 32.7% (32.0-37.0) 32.0% (32.0-37.0) Red Cell Distribution Width 15.3% (12.3-15.4) 14.9% (12.3-15.4) 14.9% (12.3-15.4) Platelet Count 208bil/L (150-400) 287bil/L (150-400) 312bil/L (150-400) Neutrophils (%) (Auto) 73.2% (40-74) 77.9% (40-74) 74.0% (40-74) Lymphocytes (%) (Auto) 11.4% (14-46) 9.2% (14-46) 12.4% (14-46) Monocytes (%) (Auto) 12.6% (4-12) 10.9% (4-12) 11.5% (4-12) Eosinophils (%) (Auto) 2.2% (0-5) 1.3% (0-5) 1.6% (0-5) Basophils (%) (Auto) 0.1% (0-3) 0.2% (0-3) 0.1% (0-3) Prothrombin Time 38.9sec (8.1-12.5) 38.7sec (8.1-12.5) 43.1sec (8.1-12.5) Prothromb Time International Ratio 3.54ratio 3.53ratio 3.92ratio Sodium Level 134mEq/L (134-144) 133mEq/L (134-144) 136mEq/L (134-144) Potassium Level 4.8mEq/L (3.5-5.2) 4.7mEq/L (3.5-5.2) 4.4mEq/L (3.5-5.2) Chloride Level 102mEq/L (97-108) 102mEq/L (97-108) 106mEq/L (97-108) Carbon Dioxide Level 19mmol/L (18-29) 18mmol/L (18-29) 19mmol/L (18-29) Blood Urea Nitrogen 53mg/dL (8-27) 50mg/dL (8-27) 52mg/dL (8-27) Creatinine 1.83mg/dL (0.76-1.27) 1.79mg/dL (0.76-1.27) 1.75mg/dL (0.76-1.27) Estimat Glomerular Filtration Rate 39mL/min (>59) 40mL/min (>59) 41mL/min (>59) Glucose Level 348mg/dL (60-99) 273mg/dL (60-99) 247mg/dL (60-99) Calcium Level 7.9mg/dL (8.5-10.1) 8.0mg/dL (8.5-10.1) 7.9mg/dL (8.5-10.1) Procalcitonin 3.58ng/mL (0.00-0.08) 3.22ng/mL (0.00-0.08) X-Rays, CTs and MRIs CT brain 1. No acute intracranial abnormalities. 2. Cerebral volume loss and chronic microvascular ischemic change Dictated by: Milton Bardales M.D. on 01/03/2017 at 12:54 Chest x-ray IMPRESSION: No acute cardiopulmonary disease. Dictated by: Milton Bardales M.D. on 01/03/2017 at 13:55 Venous duplex IMPRESSION: No deep venous thrombosis in the right lower extremity. Dictated by: Milton Bardales M.D. on 01/03/2017 at 12:40 01/04 PROCEDURE: X-RAY RIGHT FOOT COMPLETE, MINIMUM THREE VIEWS ([id number]) IMPRESSION: Worsening osteomyelitis involving the first metatarsal head with gas within the adjacent soft tissues as well as throughout the dorsal aspect of the soft tissues. Although the gas may be related to recent instrumentation, developing necrotizing fasciitis cannot be excluded and clinical correlation and followup is recommended. Dr. Key given results at 1108 hours on 01/05/2017. Dictated by: Sung VELAZCO Interpreted: Rhona Paige MD on 01/05/2017 at 10:56 01/05 PROCEDURE: X-RAY RIGHT FOOT COMPLETE, MINIMUM THREE VIEWS ([id number]) IMPRESSION: Interval postoperative changes of the right forefoot as described. No radiopaque foreign bodies. Dictated by: Ronal Galindo M.D. on 01/05/2017 at 15:58 01/06 PROCEDURE: US RENAL SONOGRAM 1. Left renal inferior exophytic cyst otherwise normal kidneys. 2. 707 cc prevoid urinary volume and postvoid residual cannot be assessed. Cardiac Echo Impressions Last echo 04/06/16 Interpretation Summary Left ventricular wall thickness is mild-moderately increased. Assessment of diastolic parameters indicates a relaxation abnormality of the left ventricle, consistent with normal filling pressures. The right ventricle is normal in size and function. Pulmonary artery pressures cannot be estimated because of the lack of a measurable TR jet velocity. Both atria are normal in size. There is no significant valvular heart disease. The aortic root is normal size. The aortic arch is normal in size. TTE 01/05/17 The study quality was technically difficult. A contrast injection of Definity was performed to improve assessment of LV function. Left ventricular ejection fraction is estimated to be 50%. Apical hypokinesis is suspected, LVEF is slightly lower on this exam. The right ventricle is normal size. Right ventricular systolic function is mildly reduced. The right ventricular systolic pressure is estimated at 25 mmHg assuming a right atrial pressure of 8 mm Hg. In an off axis view there is an echodensity along the superior aspect of the IAS, this could be an artifact. A V[place] can hlep elucidate this further, or a limited echo to re evaluate the RA may be requested. [place] 01/07/17 The left ventricular ejection fraction is grossly normal. The interatrial septum is intact with no evidence for an atrial septal defect. No evidence of endocarditis. No mass seen in RA, TTE finding was artifactual. Assessment & Plan 71-year-old male with recent amputation of his right big toe and insulin- dependent diabetes who presents after being found down, with hypoglycemia and increased erythema of the right lower extremity consistent with cellulitis. RLE Staph Aureus osteomyelitis and cellulitis, active Per right foot x-ray, now status post 2nd digit amputation by Dr. Key. May require more debridement. Foot cultures grew staph aureus. - Has been on Zosyn since 01/04/17 till 01/08/17 - Ancef from 01/08/[address] Edwards Recommendation, continue to 02/14/17. Need to consider with Dr. Edwards (ID) [facility] concern of proper coverage. - Appreciate consults by Dr. Key, Dr. Edwards and PT. - PT for help with moving in bed as patient strength worsening throughout admission. - Will require discharge to SNF for treatment - Per ID, patient cleared for PICC. He may require dialysis in the future and will need discussion with nephrology about whether PICC or other indwelling access device is preferred. Type 2 Diabetes with peripheral neuropathy, diabetic foot ulcer, Nephropathy and no proliferative retinopathy; present on admission; ongoing - High dose correction Lispro algorithm - A1c 8.9 - Sepsis also likely contributed to poor control. - Lantus increased to 20 units nightly, 10 units in the morning. - Hold Victoza sq - As of 01/11/17 patient still having poor glucose control despite being on Lantus 20 units AM, 30 units at night, with high dose nutritional scale lispro. - 01/11/17, pharmacy recommended adding 5 units lispro TIDAC to help with blood sugar control. Aim is to have blood sugars around 160 to help promote wound healing. Altered mental status and Delirium, resolved Patient has decline in mental function after [place]. Mentation seems to be declining as patient is unable to respond correctly where he is or what year it is. He also has been having slurred speech. It should be re stated that prior to admission, patient had fallen and stated he did hit his head on this head board and had his head wedged in between. Head CT at that time showed no acute intracranial abnormalities. - DDx: Includes stroke secondary to hemorrhage, medication side effects of versed and also considering reduced clearance of versed due to poor kidney function, encephalitis. - Likely secondary to medication side effects, but given history, ordered stat CT head. - Head CT unremarkable. Will decrease pain medications, cluster nursing care, ask for frequent reorientation and make sure there is daylight in room during days. - In the afternoon of 01/09/17, evaluated patient and his mentation is back to baseline when I first saw him on 01/04/17. The AMS and delirium was likely medication related as patient was given fentanyl for pain, versed for [place], flexiril for spasms. This happened within a short time period on top of poor kidney function. Shortness of breath, resolved -Patient having increased coughing and shortness of breath 01/08/17. -Chest X-ray shows impression is Bibasilar atelectasis versus aspiration or pneumonia. - Patient has been noted to be aspirating per speech evaluation and should have supervised PO intake. - Patient currently on Ancef for osteomyelitis - Acapella and Incentive spirometry - Recheck CBC Acute on chronic kidney injury; present on admission; Resolved - Baseline Cr 1.3-1.7. Due to Hypertensive nephrosclerosis and Diabetic nephropathy - Renal ultrasound showed Pre-void bladder volume is 778 mL. - Patient has Milton as of 01/06/17. Improved BUN and Cr afterwards. - avoid nephrotoxic insults, monitor urine output - Fluids discontinued 01/08/17 Hypertension; present on admission; ongoing - Losartan 50 mg daily - Amlodipine 10 mg daily - Lasix 20 mg daily Paroxysmal Atrial fibrillation on Coumadin; present on admission; stable - monitored on telemetry till 01/09/17. Patient out of A. fib for several days prior. - continue rate control with Carvedilol - Continue warfarin per pharmacy - Daily INR. Ordered 2 units FFP to reduce INR below 2 prior to I&D. Patient only recieved 1 unit. Held second unit after surgery on 01/05. - Consider adding Diltiazem drip if sustained elevated HR. Severe Sepsis - Resolved Secondary to RLE cellulitis and bacteremia found on admission. Patient on admission had leukocytosis of 24.3, tachycardia and tachypnea. Leukocytosis has been improving daily now down to 13.2. RLE very hot, erythematous and edematous , with fluctuant mass on base of RLE 1st digit. This has been improving throughout his admission with treatment initially on ancef and now on zosyn. Recent cultures in September show MSSA pansensitive. Nasal MRSA swab negative. Blood cultures have also been grown gram positive cocci likely to be staph aureus. - Patient no longer tachycardic or tachypneic. Leukocytosis is down to 12.3. - Appreciate Dr. Key consult and ID consult. - I/D done 01/[address] Key drained approximately 50 cc of pustular discharge. Patient had extensive debridement and amputation of right second toe in OR 01/05. - Discontinued Ancef 01/05/17 - Continued zosyn, start date 01/04/17. Will transition to Ancef + Flagyl 01/[address] Edwards recommendation. Plan is for treatment of antibiotics for 6 weeks for osteomyelitis. - TTE showed EF of 50%, apical hypokineseis and an echodensity along the superior aspect of the IAS, which could be an artifact. [place] would help elucidate this further. Per conversation with caridiologist, differential includes myxoma, so will proceed with V[place] for 01/07. - Follow CBC, BMP -Repeat procalcitonin trended down as above Hyperlipidemia - continue Atorvastatin 40 mg daily Acquired hypothyroidism - continue Synthroid 75 mcg daily Hypoglycemia, due to noncompliance; present on admission; Resolved - Pt has been without his glucometer; when obtained reading was "very high" likely due to above infection - Patient overdosed on Lantus, taking 2-3 times more than prescribed - Continue to monitor glucose Mild troponin elevation; present on admission; Resolved -Likely due to acute kidney injury -Now wnl Anion gap metabolic acidosis with lactic acidosis; present on admission; Resolved -Anion gap improved from 20 to 12, lactic acid trended to 1.0. - IV fluids were used initially when patient had limited PO intake. Acetaminophen for mild pain when necessary. Bowel regimen Senna and MiraLAX scheduled and PRN. Zofran when necessary for nausea and vomiting. SubQ heparin held for now. SCDs in place. High-risk medications: Warfarin Disposition: Dependent upon osteomyelitis. Will be discharged to SNF when medically stable. Pain Evaluation: Adequate Pain Control VTE Mechanical Devices: Intermittant Pneumatic CD Attending Statement The patient was seen and examined together with Dr. Andre on 01/11/2017 and I agree with the history, exam and plan as outlined in the note above. . Vern nAdre DO Jan 11, 2017 06:25 William Conde MD Jan 11, 2017 17:17
--- NOTE | 2017-01-11 16:02 | NUR ---
Social Work Note: Continued Discharge Planning Data& Assessment: Per MD pt is not medically ready for discharge at this time. Wound Care and podiatry are still following pt. Final IV abx recommendations have not been decided on by MD. PT still recommending SNF. [facility] still able to accept pt when medically ready pending insurance authorization. SW met with pt at bedside to check in and assess for any unmet needs. Pt declines any needs at this time and concentrating on getting better. SW to continue to follow for pt needs and MD orders. Plan: Anticipated discharge to [facility] for rehab, wound care and IV abx when medically ready pending insurance authorization. Pt declines any needs at this time and concentrating on getting better. SW to continue to follow for pt needs and MD orders. YINA Early
[2017-01-11] MEDS ORDERED: Insulin ASPART 70/30 FlexPen 300 Unit/3 mL Inj SUBQ SCH (17:00)
--- NOTE | 2017-01-11 17:11 | NUR ---
Bladder scan Bladder scanned pt at 1600 and had 480 mls. MD aware and will put in PRN parameters to reinsert melara. Will bladder scan again.
[2017-01-11] MEDS: HYDROcodone-APAP 5-325 mg Tablet PO PRN (18:08)
--- NOTE | 2017-01-11 18:24 | PROG NOTE ---
[address] [address] PROGRESS NOTE PATIENT: DARA OLIVAS : 1945 MR#: [id number] ADMIT: 01/03/2017 JOB ID: [id number] DATE: 01/11/2017 REASON FOR FOLLOWUP: Bacteremic MSSA, osteomyelitis and diabetic foot infection. INTERVAL HISTORY: The patient has changed little over the past couple of days since I have last seen him. He reports minimal shortness of breath. No fevers, chills, or sweats. No abdominal complaint. He has insensate feet and is not aware even really of the large deficit he has in his right foot in the sense it does not bother him at all. PHYSICAL EXAMINATION: Reveals an afebrile gentleman, no acute distress. Temp 36.8, pulse 74, respiratory rate 18, blood pressure 152/56. He is saturating well on room air. His oral cavity unremarkable. Lungs clear. Cardiac tones without new murmur. Abdomen benign. I undressed his right foot and carefully examined it. He has a really huge triangular shaped defect involving much of the dorsum of his right foot. This tapers to a point just at about the ankle and extends about 10 cm forward to the front of the foot where it is a much wider defect, probably measuring about 4 cm. In addition, his 1st and 2nd toes are missing completely. This large wound has some slough in it and some bit of granulation tissue. It has no odor. The area surrounding the wound is diffusely erythematous with very slow capillary refill. Over the weekend, Dr. Key contacted me. She believed that since we switched from broad-spectrum antibiotics to Ancef, aimed squarely at the MSSA we have cultured, that he has worsened. She requested to be changed back to Zosyn and this was done. LABORATORY STUDIES: Today include white blood count 10,700, which has not changed. The differential white count normal. Creatinine is 2.19. Albumin 1.9. Procalcitonin is down to 1.22. Recall that procalcitonin started at 19.2 a little over a week ago and it has been declining really in a linear fashion. When last measured, it was 3.2 on January 08. It is now down to 1.2. Micro remains strictly Staph aureus. The Staph aureus in blood from when he was admitted back on the and two debridements of the foot on January 04 and grew Staph aureus. None of these cultures grew any other organisms, nor did they grow anaerobes. IMPRESSION: This is a gentleman with bacteremic methicillin-sensitive Staphylococcus aureus, osteomyelitis, and severe right diabetic foot infection. The literature would suggest that all we need to treat in this circumstance is the MSSA because Staph aureus is the most virulent infection obviously seen in diabetic foot infections and it is all we have cultured. We not only have it from two wounds but we have it from blood. Dr. Key of podiatry feels that when we transition from Zosyn to cefazolin, the patient worsened, but this would have been a very rapid decompensation as we just stopped the Zosyn really on the and switched to cefazolin at that time. In any event, I do not object to continuing with the Zosyn in the short term. RECOMMENDATIONS: 1. Will continue with Zosyn for the time being. 2. Other agents we could use would be Ancef plus an anaerobe drugs or perhaps ertapenem as a solo agent. 3. Will continue to closely follow this patient with you.
[2017-01-11 21:05] VITALS: BP 164/75; PULSE 74; RESP 18; O2SAT 96
--- NOTE | 2017-01-11 21:27 | NUR ---
transfer note: Report was called to receiving SONYA Thomas. Pt's belongings were packed up and sent with pt. Pt was transported to rm#[id number] from rm#[id number] per wheelchair by [employer].
--- NOTE | 2017-01-11 21:55 | NUR ---
received pt. from [facility]: Pt. required 2 person max assist from wheelchair to bed, stating he has bad knees and can't bear weight on his right foot, pt. unable to push himself up to standing, pt. was able to void 425cc per urinal after melara dc'd, pt's blood glucose checked was 275, pt. given lantus and humalog insulin, pt. denies pain at this time, pt. reoriented to time of day, he was thinking it was morning instead of 2130, pt. pleasant and cooperative with care.
--- NOTE | 2017-01-11 23:24 | PROG NOTE ---
[address] [address] PROGRESS NOTE PATIENT: DARA OLIVAS : 1945 MR#: [id number] ADMIT: 01/03/2017 JOB ID: [id number] DATE: The patient is seen for infected ulcer, right foot. He has no new complaints today. He denies any pain, fever, chills. PHYSICAL EXAMINATION: Blood pressure 164/75, pulse 74, respiratory rate 18, temperature 36.7, pulse oximetry 96% on room air. Lower extremity exam: Dressing intact with moderate amount of serosanguineous drainage. There is decreased erythema and swelling from yesterday. There is still some pustular discharge from the proximal lateral aspect of the wound, however, this is decreased from yesterday. The base of the second metatarsal is yellow discolored, however, it is hard to palpation. The medial cuneiform, however, bleeds upon light debridement. The 3rd metatarsal base is also brown discolored. However, is hard to palpation. The resected end of the 2nd metatarsal is yellowish brown discolored and there is no granulation tissue forming over the area. The 3rd metatarsal neck is also yellow discolored, however, when debrided with a curette lightly there is bleeding noted. There is increased pink granulation within the wound base. The area around the extensor retinaculum appears slightly estrella in color. Neurovascular status is intact to all remaining toes of the right foot. LABORATORY DATA: WBC 10.7, hemoglobin 9.4, hematocrit 28.8, platelets 385. Neutrophils 75.1. Chemistry: Sodium 134, potassium 5.5, chloride 103, carbon dioxide 21, BUN 62, creatinine 2.19. Estimated GFR 32. Glucose 231, calcium 7.7, total protein 4.8, albumin 1.9, AST 20, ALT 5, alkaline phosphatase 72. ASSESSMENT/PLAN: 1. Cellulitis with osteomyelitis, right foot. His acute signs of infection are decreasing, however, he continues to have pustular discharge from around the extensor retinaculum and from around the ankle. This, however, is decreased from the previous visit. I will plan for debridement of this area tomorrow in the operating room as well as to resect the distal end of the second metatarsal down to good bleeding bone. However, it was noted that the base of the second metatarsal was yellow, discolored and abnormal in recurrence and did not bleed upon debridement. I sent a sample of the bone from the second metatarsal to Pathology to see if it is still viable at this time. I also debrided the 3rd metatarsal base dorsally and medially to bleeding bone as well as the cuneiform. Patient was made n.p.o. tonight, and I will plan for the procedure tomorrow. Once the operating room scheduling is open, I will schedule surgery. Warfarin is put on hold. I spoke to the hospitalist who states that he is medically stable to have the surgery performed tomorrow. Will continue with the IV Zosyn. 2. Low albumin. It would be beneficial if we could get protein levels up, however, his creatinine is elevated which makes it difficult to consume a lot of protein. Recommend dietary consult to assess his nutritional status and make any recommendations.
[2017-01-12] MEDS: Piperacillin-Tazo 3.375 Gm Inj 3.375 GM in Dextrose 5% Minibag Plus 50 ML IV SCH ×3 (00:42→17:44)
[2017-01-12] MEDS: Sodium Chloride LOK Flush 10 mL Syringe IVFLUSH SCH ×3 (00:46→17:41)
[2017-01-12 05:00] VITALS: BP 170/74; PULSE 77; RESP 18; O2SAT 96
[2017-01-12 06:19] LABS: BASOPHILS % (AUTO) 0.2 % (0-3); EOSINOPHILS % (AUTO) 2.2 % (0-5); MONOCYTES % (AUTO) 7.3 % (4-12); Mean Corpuscular Volume 90.5 fL (81-100); Platelet Count 411 bil/L (150-400)
[2017-01-12 06:24] LABS: INR 1.37 ratio
[2017-01-12] MEDS: Insulin LISPRO 300 Unit/3 mL Inj SUBQ SCH ×7 (07:30→20:56)
--- NOTE | 2017-01-12 07:48 | PCM.PHAPRO ---
Progress Warfarin dosing -Jan 3-Jan 12-Jan 1.86 1.34 1.37 -2.06 -0.52 0.03 2 MG 3MG 4 Milton Franco Pharm.D Jan 12, 2017 07:48
[2017-01-12 07:49] VITALS: BP 172/74; PULSE 79; RESP 17; O2SAT 96
--- NOTE | 2017-01-12 10:08 | PCM.PNMED ---
Subjective Date of Service Jan 12, 2017 Subjective pt denied any complaints anticipating surgery today by Dr.Lam Andrade is running, afebrile. Exam Vital Signs Vital Sign - Last Date Time Temp Pulse Resp B/P Pulse Ox O2 Delivery O2 Flow Rate FiO2 01/12/17 07:49 36.7 79 17 172/74 96 Room Air 01/10/17 18:04 1.00 Intake and Output 01/11/17 01/11/17 01/12/17 Cumulative From/Thru 15:00 23:00 07:00 01/03/17 11:59 - 01/12/17 06:14 Intake Total 974 ml 654 ml 30945 ml Output Total 800 ml 1075 ml 9880 ml Balance 174 ml -421 ml 11569 ml Intake Oral 854 ml 654 ml 8944 ml IV Total 120 ml 02345 ml TPN/PPN 100 ml Output Urine Total 800 ml 1075 ml 9850 ml Estimated Blood Loss 30 ml # Voids 3 # Bowel Movements 0 2 Exam NAD, comfortably laying down on the bed no JVD, MMM, no LAD RRR, nl s1, s2 no mrg CTAB, no w,c S,ND,NT,normoactive BS+ left foot, sterilely dressed, chronic skin chg, IVs and Medications Medications Reviewed: Medications were reviewed in detail Lab and Diagnostics Result Diagram: 01/12/17 0540 01/12/17 0540 Microbiology Laboratory Tests 72 Hours Test 01/06/17 19:59 01/07/17 03:10 01/08/17 03:00 01/09/17 02:55 Urine Color Yellow (YELLOW) Urine Appearance Hazy (CLEAR,HAZY) Urine pH 5.0 (5.0-8.0) Urine Specific Jet 1.020 (1.003-1.035) Urine Protein 30mg/dL (NEG,TRACE) Urine Glucose (UA) Negativemg/dL (NEGATIVE) Urine Ketones Negativemg/dL (NEGATIVE) Urine Occult Blood Small (NEGATIVE) Urine Nitrite Negative (NEGATIVE) Urine Bilirubin Negative (NEGATIVE) Urine Urobilinogen Normalmg/dL (NORMAL) Urine Leukocyte Esterase Negative (NEGATIVE) Urine RBC 0-2/hpf (0-2) Urine WBC 0-5/hpf (0-5) Urine Epithelial Cells Occasional/hpf (NONE-MOD) Urine Crystals Amorphous urates (NONE Urine Bacteria None/hpf (NONE-FEW) Urine Hyaline Casts None/lpf (NONE) Urine Granular Casts None seen (NONE SEEN) Urine Waxy Casts None seen (NONE SEEN) Urine Red Blood Cell Casts None seen (NONE SEEN) Urine White Blood Cell Casts None seen (NONE SEEN) Urine Mucus None seen (None Seen) Urine Trichomonas None seen (NONE SEEN) Urine Yeast None (NONE SEEN) Urinalysis Comment None Urine Culture Reflexed Not indicated White Blood Count 10.0th/mm3 (3.8-10.1) 10.9th/mm3 (3.8-10.1) 9.6th/mm3 (3.8-10.1) Red Blood Count 3.44mil/mm3 (4.40-5.80) 3.50mil/mm3 (4.40-5.80) 3.28mil/mm3 (4.40-5.80) Hemoglobin 10.2g/dL (13.8-17.2) 10.4g/dL (13.8-17.2) 9.5g/dL (13.8-17.2) Hematocrit 31.7% (41.0-50.0) 31.8% (41.0-50.0) 29.7% (41.0-50.0) Mean Corpuscular Volume 92.2fL (81-100) 90.9fL (81-100) 90.5fL (81-100) Mean Corpuscular Hemoglobin 29.7pg (27.0-35.0) 29.7pg (27.0-35.0) 29.0pg (27.0-35.0) Mean Corpuscular Hemoglobin Concent 32.2% (32.0-37.0) 32.7% (32.0-37.0) 32.0% (32.0-37.0) Red Cell Distribution Width 15.3% (12.3-15.4) 14.9% (12.3-15.4) 14.9% (12.3-15.4) Platelet Count 208bil/L (150-400) 287bil/L (150-400) 312bil/L (150-400) Neutrophils (%) (Auto) 73.2% (40-74) 77.9% (40-74) 74.0% (40-74) Lymphocytes (%) (Auto) 11.4% (14-46) 9.2% (14-46) 12.4% (14-46) Monocytes (%) (Auto) 12.6% (4-12) 10.9% (4-12) 11.5% (4-12) Eosinophils (%) (Auto) 2.2% (0-5) 1.3% (0-5) 1.6% (0-5) Basophils (%) (Auto) 0.1% (0-3) 0.2% (0-3) 0.1% (0-3) Prothrombin Time 38.9sec (8.1-12.5) 38.7sec (8.1-12.5) 43.1sec (8.1-12.5) Prothromb Time International Ratio 3.54ratio 3.53ratio 3.92ratio Sodium Level 134mEq/L (134-144) 133mEq/L (134-144) 136mEq/L (134-144) Potassium Level 4.8mEq/L (3.5-5.2) 4.7mEq/L (3.5-5.2) 4.4mEq/L (3.5-5.2) Chloride Level 102mEq/L (97-108) 102mEq/L (97-108) 106mEq/L (97-108) Carbon Dioxide Level 19mmol/L (18-29) 18mmol/L (18-29) 19mmol/L (18-29) Blood Urea Nitrogen 53mg/dL (8-27) 50mg/dL (8-27) 52mg/dL (8-27) Creatinine 1.83mg/dL (0.76-1.27) 1.79mg/dL (0.76-1.27) 1.75mg/dL (0.76-1.27) Estimat Glomerular Filtration Rate 39mL/min (>59) 40mL/min (>59) 41mL/min (>59) Glucose Level 348mg/dL (60-99) 273mg/dL (60-99) 247mg/dL (60-99) Calcium Level 7.9mg/dL (8.5-10.1) 8.0mg/dL (8.5-10.1) 7.9mg/dL (8.5-10.1) Procalcitonin 3.58ng/mL (0.00-0.08) 3.22ng/mL (0.00-0.08) X-Rays, CTs and MRIs CT brain 1. No acute intracranial abnormalities. 2. Cerebral volume loss and chronic microvascular ischemic change Dictated by: Milton Bardales M.D. on 01/03/2017 at 12:54 Chest x-ray IMPRESSION: No acute cardiopulmonary disease. Dictated by: Milton Bardales M.D. on 01/03/2017 at 13:55 Venous duplex IMPRESSION: No deep venous thrombosis in the right lower extremity. Dictated by: Milton Bardales M.D. on 01/03/2017 at 12:40 01/04 PROCEDURE: X-RAY RIGHT FOOT COMPLETE, MINIMUM THREE VIEWS ([id number]) IMPRESSION: Worsening osteomyelitis involving the first metatarsal head with gas within the adjacent soft tissues as well as throughout the dorsal aspect of the soft tissues. Although the gas may be related to recent instrumentation, developing necrotizing fasciitis cannot be excluded and clinical correlation and followup is recommended. Dr. Key given results at 1108 hours on 01/05/2017. Dictated by: Sung VELAZCO Interpreted: Rhona Paige MD on 01/05/2017 at 10:56 01/05 PROCEDURE: X-RAY RIGHT FOOT COMPLETE, MINIMUM THREE VIEWS ([id number]) IMPRESSION: Interval postoperative changes of the right forefoot as described. No radiopaque foreign bodies. Dictated by: Ronal Galindo M.D. on 01/05/2017 at 15:58 01/06 PROCEDURE: US RENAL SONOGRAM 1. Left renal inferior exophytic cyst otherwise normal kidneys. 2. 707 cc prevoid urinary volume and postvoid residual cannot be assessed. Cardiac Echo Impressions Last echo 04/06/16 Interpretation Summary Left ventricular wall thickness is mild-moderately increased. Assessment of diastolic parameters indicates a relaxation abnormality of the left ventricle, consistent with normal filling pressures. The right ventricle is normal in size and function. Pulmonary artery pressures cannot be estimated because of the lack of a measurable TR jet velocity. Both atria are normal in size. There is no significant valvular heart disease. The aortic root is normal size. The aortic arch is normal in size. TTE 01/05/17 The study quality was technically difficult. A contrast injection of Definity was performed to improve assessment of LV function. Left ventricular ejection fraction is estimated to be 50%. Apical hypokinesis is suspected, LVEF is slightly lower on this exam. The right ventricle is normal size. Right ventricular systolic function is mildly reduced. The right ventricular systolic pressure is estimated at 25 mmHg assuming a right atrial pressure of 8 mm Hg. In an off axis view there is an echodensity along the superior aspect of the IAS, this could be an artifact. A VIR[place]IA can hlep elucidate this further, or a limited echo to re evaluate the RA may be requested. [place] 01/07/17 The left ventricular ejection fraction is grossly normal. The interatrial septum is intact with no evidence for an atrial septal defect. No evidence of endocarditis. No mass seen in RA, TTE finding was artifactual. Assessment & Plan 71-year-old male with recent amputation of his right big toe and insulin- dependent diabetes who presents after being found down, with hypoglycemia and increased erythema of the right lower extremity consistent with cellulitis. acute, acitve left foot cellulitis/OM, POA, serial cultures+MSSA. s/p 2nd digit amputation, serial debridement by Dr. Key -anticipate surgery today per -s/p Zosyn since 01/04/17 till 01/08/17, Ancef from 01/08/[address] Edwards Recommendation, continue to 02/14/17, switched back to zosyn as clinically worsened. - Appreciate consults by Dr. Key, Dr. Edwards and PT. - PT for help with moving in bed as patient strength worsening throughout admission. Type 2 Diabetes with peripheral neuropathy, diabetic foot ulcer, Nephropathy and no proliferative retinopathy; POA, A1c 8.9, Sepsis also likely contributed to poor control. - glucose in target with current regimen. - Lantus increased to 20AM, 30 at night,added 5 units lispro TIDAC + high dose nutritional scale lispro. - Hold Victoza sq chronic, stable, resolved Altered mental status and Delirium, resolved Patient has decline in mental function after V[place]. Mentation seems to be declining as patient is unable to respond correctly where he is or what year it is. He also has been having slurred speech. It should be re stated that prior to admission, patient had fallen and stated he did hit his head on this head board and had his head wedged in between. Head CT at that time showed no acute intracranial abnormalities. - DDx: Includes stroke secondary to hemorrhage, medication side effects of versed and also considering reduced clearance of versed due to poor kidney function, encephalitis. - Likely secondary to medication side effects, but given history, ordered stat CT head. - Head CT unremarkable. Will decrease pain medications, cluster nursing care, ask for frequent reorientation and make sure there is daylight in room during days. - In the afternoon of 01/09/17, evaluated patient and his mentation is back to baseline when I first saw him on 01/04/17. The AMS and delirium was likely medication related as patient was given fentanyl for pain, versed for [place], flexiril for spasms. This happened within a short time period on top of poor kidney function. Shortness of breath, resolved -Patient having increased coughing and shortness of breath 01/08/17. -Chest X-ray shows impression is Bibasilar atelectasis versus aspiration or pneumonia. - Patient has been noted to be aspirating per speech evaluation and should have supervised PO intake. - Patient currently on Ancef for osteomyelitis - Acapella and Incentive spirometry - Recheck CBC Acute on chronic kidney injury; present on admission; Resolved - Baseline Cr 1.3-1.7. Due to Hypertensive nephrosclerosis and Diabetic nephropathy - Renal ultrasound showed Pre-void bladder volume is 778 mL. - Patient has Milton as of 01/06/17. Improved BUN and Cr afterwards. - avoid nephrotoxic insults, monitor urine output - Fluids discontinued 01/08/17 Hypertension; present on admission; ongoing - Losartan 50 mg daily - Amlodipine 10 mg daily - Lasix 20 mg daily Paroxysmal Atrial fibrillation on Coumadin; present on admission; stable - monitored on telemetry till 01/09/17. Patient out of A. fib for several days prior. - continue rate control with Carvedilol - Continue warfarin per pharmacy - Daily INR. Ordered 2 units FFP to reduce INR below 2 prior to I&D. Patient only recieved 1 unit. Held second unit after surgery on 01/05. - Consider adding Diltiazem drip if sustained elevated HR. Severe Sepsis - Resolved Secondary to RLE cellulitis and bacteremia found on admission. Patient on admission had leukocytosis of 24.3, tachycardia and tachypnea. Leukocytosis has been improving daily now down to 13.2. RLE very hot, erythematous and edematous , with fluctuant mass on base of RLE 1st digit. This has been improving throughout his admission with treatment initially on ancef and now on zosyn. Recent cultures in September show MSSA pansensitive. Nasal MRSA swab negative. Blood cultures have also been grown gram positive cocci likely to be staph aureus. - Patient no longer tachycardic or tachypneic. Leukocytosis is down to 12.3. - Appreciate Dr. Key consult and ID consult. - I/D done 01/[address] Key drained approximately 50 cc of pustular discharge. Patient had extensive debridement and amputation of right second toe in OR 01/05. - Discontinued Ancef 01/05/17 - Continued zosyn, start date 01/04/17. Will transition to Ancef + Flagyl 01/[address] Edwards recommendation. Plan is for treatment of antibiotics for 6 weeks for osteomyelitis. - TTE showed EF of 50%, apical hypokineseis and an echodensity along the superior aspect of the IAS, which could be an artifact. [place] would help elucidate this further. Per conversation with caridiologist, differential includes myxoma, so will proceed with V[place]IA for 01/07. - Follow CBC, BMP -Repeat procalcitonin trended down as above Hyperlipidemia - continue Atorvastatin 40 mg daily Acquired hypothyroidism - continue Synthroid 75 mcg daily Hypoglycemia, due to noncompliance; present on admission; Resolved - Pt has been without his glucometer; when obtained reading was "very high" likely due to above infection - Patient overdosed on Lantus, taking 2-3 times more than prescribed - Continue to monitor glucose Mild troponin elevation; present on admission; Resolved -Likely due to acute kidney injury -Now wnl Anion gap metabolic acidosis with lactic acidosis; present on admission; Resolved -Anion gap improved from 20 to 12, lactic acid trended to 1.0. - IV fluids were used initially when patient had limited PO intake. Acetaminophen for mild pain when necessary. Bowel regimen Senna and MiraLAX scheduled and PRN. Zofran when necessary for nausea and vomiting. SubQ heparin held for now. SCDs in place. High-risk medications: Warfarin Disposition: Dependent upon osteomyelitis. Will be discharged to SNF when medically stable. VTE Mechanical Devices: Intermittant Pneumatic CD Time spent 35min Luigi Arrieta MD Jan 12, 2017 10:08
[2017-01-12] MEDS: Insulin GLARgine 100 Unit/mL Syringe SUBQ SCH ×2 (11:02→20:55)
[2017-01-12 11:56] VITALS: BP 151/67; PULSE 70; RESP 17; O2SAT 95
--- NOTE | 2017-01-12 13:00 | NUR ---
Pt to OR Pt to OR; up to BS with fww 2 person asst, used urinal voided 500mls before going to OR, IV SL x1. A&Ox3, VSS, pt on RA, SPO2 95%, no c/o SOB. K+ 5.8 this AM, BG 144; reported to OR. Report given to Eleonora in OR. Addendum: 01/12/17 at 1536 by YASMEEN ZENDEJAS RN K+ 5.8 this AM; made aware in rounds, no new orders.
[2017-01-12] MEDS ORDERED: Lactated Ringer's 1,000 ML IV SCH (13:02)
[2017-01-12] MEDS ORDERED: Lactated Ringer's 500 ML IV PRN (13:02)
[2017-01-12] MEDS ORDERED: Ondansetron 2 mg/mL 2 mL Inj IVPUSH PRN (13:05)
[2017-01-12] MEDS ORDERED: fentaNYL-PF 50 mCg/mL 2 mL Inj IVPUSH PRN (13:05)
[2017-01-12] MEDS ORDERED: Atropine 0.4 mg/mL Inj IVPUSH PRN (13:05)
[2017-01-12] MEDS ORDERED: Phenylephrine 10,000 mCg/mL Inj IVPUSH PRN (13:05)
[2017-01-12] MEDS ORDERED: EPHEDrine Sulfate 50 mg/mL Inj IVPUSH PRN (13:05)
[2017-01-12] MEDS ORDERED: HYDROmorphone 1 mg/mL Inj IVPUSH PRN (13:05)
[2017-01-12] MEDS ORDERED: MetoCLOpramide 5 mg/mL 2 mL Inj IVPUSH PRN (13:05)
[2017-01-12] MEDS ORDERED: Labetalol 5 mg/mL 4 mL Inj IV PRN (13:05)
[2017-01-12] MEDS: Lactated Ringer's 1,000 ML IV SCH ×2 (13:14→20:35)
--- NOTE | 2017-01-12 13:41 | PCM.HPANE ---
Patient Data Surgeon Admitting Provider:Luigi Arrieta MD Attending Provider:Luigi Arrieta MD Primary Care Physician:Karlee Kaplan MD Other Provider: Reason for Visit Hypoglycemia, Mult Falls, Rle Cellulitis Ht/WT & BMI Height (Feet): 5 Height (Inches): 8.00 Weight (Kilograms): 101.300 Body Mass Index 28.10 Allergies Coded Allergies: Pentazocine Lactate (Verified Allergy, Unknown, 09/09/15) vancomycin (Unverified Allergy, Unknown, Hives, 09/09/15) rash and blisters hydrocortisone (Verified Adverse Reaction, Unknown, leg swelling, 11/07/16) Past Anesthesia History Anesthesia History: Denies:: Abnormal Airway, Anesthesia Reactions (pt states he hard to wake up post anesthesia), Difficult Intubation, Fam Anesthesia Reaction, Fam Malignant Hypertherm, Malignant Hyperthermia Diabetes History Hx Diabetes?: Yes (insulin dependent) Type of Diabetes: Type II Glycemic Control: Insulin Dependent Current Bedside Blood Glucose: 144 MRSA MRSA: No Medications Blood Thinner: Aspirin, Coumadin Hypertension Medication: Yes Home Meds Incl Beta Anette: Yes Date Beta Anette Taken: Jan 05, 2017 Time Beta Anette Taken: 0800 Active Scripts Hydrocodone-Acetaminophen 5-325 mg 1 Each Tablet1 Tablet PO Q4H PRN For Pain # 30 TABLET Ref 0 Prov:Camryn Kaufman DO 11/10/16 Spironolactone 25 Mg Rnfwyh86.5 Mg PO DAILY #14 TABLET Ref 0 Prov:Camryn Kaufman DO 11/10/16 Polyethylene Glycol 3350 (Miralax)17 Gm Powd.pack17 Gm PO DAILY PRN For Constipation #14 Prov:Camryn Kaufman DO 11/10/16 Losartan Potassium (Cozaar)25 Mg Yecfud01 Mg PO DAILY #14 TABLET Prov:Camryn Kaufman DO 11/10/16 Cyclobenzaprine 10 Mg Yyrkop56 Mg PO TID PRN For Spasm #20 TABLET Prov:Camryn Kaufman DO 11/10/16 Reported Medications Liraglutide (Victoza 2-Vitaliy)0.6 Mg/0.1 Ml Pen.injctr1.2 Mg SUBQ DAILY #6 11/07/16 Warfarin Sodium 2.5 Mg Tablet5 Mg PO DAILY 30 Days Ref 0 11/07/16 Diclofenac Gel (Voltaren Gel)100 Gm Tube1 Applic TOPICAL DIRECTED PRN For Pain #1 TUBE 4/29/17 Cyanocobalamin (Vitamin B-12) (Vitamin B-12)1,000 Mcg Tab.subl1,000 Mcg SL DAILY 11/07/16 Insulin Glargine (Lantus U100 Insulin Vial)100 Unit/Ml Vial22 Unit SUBQ HS #1 VIAL Ref 0 11/07/16 Iron Amino Acid Chelate/B12/FA (Ferractiv Iron 27 mg Formula)1 Each Capsule2 Each PO DAILY 11/07/16 Cetirizine HCl (Zyrtec)10 Mg Wadcbku23 Mg PO DAILY PRN allergies #30 CAPSULE Ref 0 07/17/15 Insulin Aspart (NovoLOG U100 Insulin Vial)100 U/Ml U5-14 Unit SUBQ TID #1 VIAL Ref 0 07/17/15 Meclizine (Bonine)25 Mg Tab.chew25 Mg PO DAILY 07/17/15 Furosemide (Lasix)40 Mg Qqwrmp32 Mg PO DAILY 30 Days Ref 0 07/17/15 Levothyroxine 75 Mcg Vazdqv68 Mcg PO DAILY Ref 0 07/17/15 Gabapentin 300 Mg Pmgbmes895 Mg PO QAM Ref 0 07/17/15 Multivitamin/Iron/Folic Acid (Century Tablet)1 Each Tablet1 Each PO DAILY 07/17/15 Carvedilol 12.5 Mg Kcjylo79.5 Mg PO DAILY Ref 0 07/17/15 Atorvastatin (Lipitor)40 Mg Wknaap59 Mg PO DAILY Ref 0 07/17/15 Amlodipine 10 Mg Sheata48 Mg PO DAILY Ref 0 07/17/15 Allopurinol 300 Mg Rrhpmw108 Mg PO DAILY Ref 0 07/17/15 Insulin Glargine (Lantus U100 Insulin Vial)100 Unit/Ml Vial32 Unit SUBQ QAM #1 VIAL Ref 0 07/17/15 History History of ENT Problems?: Yes HEENT History: Positive for:: Cataracts (left eye cataract; right eye cataract removed) Sinus Problem (Seasonal grass allergies) Denies:: Abnormal Airway Difficult Intubation Dysphagia Denture Type: None Teeth Condition: Broken Teeth Missing Teeth Hx of Heart Problems?: Yes Cardiovascular History: Positive for:: Hypertension Irregular Heartbeat (remote history noted in a recovery post foot surgery,per patient) Denies:: Cardiac Surgery Chest Pain Congestive Heart Failure Edema Heart Murmur Pacemaker Thrombophlebitis Other History/Comments No CP Hx of Respiratory Problem?: No Respiratory History: Denies:: Asthma COPD Chest Surgery Dyspnea Emphysema Hemoptysis Oxygen Administration Pneumonia Tuberculosis Use of C-PAP Machine Hx Neurologic Problems?: Yes Neurological History: Positive for:: CVA (HX 3-4months ago had difficulty speaking - MRI small infarction - no TX) Dizziness (more balance issues due to neuropathy and a weak Left Knee) Peripheral Neuropathy Denies:: Alzheimer's Disease Dementia Headaches Multiple Sclerosis Parkinson's Disease Seizures TIA Other Neurological Pertinent: hx TIA Hx of GI Problems?: Yes Hx of Problems?: No HX of Peritoneal Dialysis: No Skin History: Positive for:: History Skin Disorders? 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 Blood Transfuse Reaction Blood Transfusions Hx Diabetes: Yes (insulin dependent)Bedside Blood Glucose: 144 Hx Alcohol Use: NoHx Substance Use: No Smoking Status: Never Smoker Have You Smoked inLast 12 mo: No Stop/Bang Treated for Sleep Apnea?: No Do You Have a CPAP Machine?: No S-Snoring: Do You Snore Loudly: No T-Tired: feel tired, fatigued: No O-Obsered: Observed not breath: No P-Blood Pressure: treated: Yes B- Body Mass Index > 35 kg/m2: No A- Age over 50: Yes N- Neck Large Circumference: No G- Gender Male: Yes LUDA Total Score: 2 LUDA Risk Assessment: Low Risk, <3 Yes LUDA Category 1: Yes Risk Assessment Category Category 1A: Patient has history of documented sleep apnea, and HAS NOT received any narcotic, sedative or anesthesia administration during this stay. Category 1B: Patient has history of documented sleep apnea, and HAS received any narcotic , sedative or anesthesia administration during this stay Category 2: Patient has SUSPECTED Obstructive Sleep Apnea, and HAS received any narcotic , sedative or anesthesia administration during this stay. Category 3: Patient has SUSPECTED Obstructive Sleep Apnea and HAS NOT received narcotic, sedative or anesthesia administration during this stay. Category 4: Outpatient in Procedural Areas with known sleep apnea or who screen positive for High Risk via the STOP/BANG questionnaire. Low Risk, <3 Yes Exam Exam Vital Signs Vital Signs Date Time Temp Pulse Resp B/P Pulse Ox O2 Delivery O2 Flow Rate FiO2 01/12/17 11:56 36.8 70 17 151/67 95 Room Air 01/12/17 07:49 36.7 79 17 172/74 96 Room Air General Appearance: Alert, Oriented X3, Cooperative, No Acute Distress HEENT/AIRWAY: MP 2 Lungs: Clear to Auscultation, Normal Air Movement Heart: Exam Unremarkable, Regular Rate/Rhythm, No Murmurs/Rubs/Gallops Meds/Labs/Diagnostics Admission Meds Current Medications Warfarin Sodium (Coumadin) 3 mg DAILY@17 ONCE PO Last administered on 16:52; Start 01/11/17 at 17:00; Stop 01/11/17 at 17:01; Status DC Insulin Human Lispro (HumaLOG Insulin Inj) 5 unit TIDAC SUBQ Last administered on 01/11/17 18:04; Start 01/11/17 at 17:00 Bedside Blood Glucose: 144 Labs Test 01/03/17 12:05 01/03/17 18:15 01/04/17 00:52 01/04/17 03:05 Magnesium Level 2.3mg/dL (1.6-2.6) Hemoglobin A1c 8.9% (4.8-5.6) Troponin T < 0.010ug/L (0.0-0.011) Lactic Acid Level 1.0mmol/L (0.4-2.0) Band Neutrophils % 2% (1-5) Hematology Comments Test 01/05/17 05:35 01/05/17 18:00 01/06/17 19:59 01/11/17 05:00 Phosphorus Level 3.0mg/dL (2.5-4.9) Erythrocyte Sedimentation Rate > 140mm/hr (0-30) Urine Color Yellow (YELLOW) Urine Appearance Hazy (CLEAR,HAZY) Urine pH 5.0 (5.0-8.0) Urine Specific [place] 1.020 (1.003-1.035) Urine Protein 30mg/dL (NEG,TRACE) Urine Glucose (UA) Negativemg/dL (NEGATIVE) Urine Ketones Negativemg/dL (NEGATIVE) Urine Occult Blood Small (NEGATIVE) Urine Nitrite Negative (NEGATIVE) Urine Bilirubin Negative (NEGATIVE) Urine Urobilinogen Normalmg/dL (NORMAL) Urine Leukocyte Esterase Negative (NEGATIVE) Urine RBC 0-2/hpf (0-2) Urine WBC 0-5/hpf (0-5) Urine Epithelial Cells Occasional/hpf (NONE-MOD) Urine Crystals Amorphous urates (NONE Urine Bacteria None/hpf (NONE-FEW) Urine Hyaline Casts None/lpf (NONE) Urine Granular Casts None seen (NONE SEEN) Urine Waxy Casts None seen (NONE SEEN) Urine Red Blood Cell Casts None seen (NONE SEEN) Urine White Blood Cell Casts None seen (NONE SEEN) Urine Mucus None seen (None Seen) Urine Trichomonas None seen (NONE SEEN) Urine Yeast None (NONE SEEN) Urinalysis Comment None Urine Culture Reflexed Not indicated Total Bilirubin 0.3mg/dL (0.0-1.2) Aspartate Amino Transf (AST/SGOT) 20U/L (0-50) Alanine Aminotransferase (ALT/SGPT) 5U/L (0-44) Alkaline Phosphatase 72U/L (25-160) Total Protein 4.8g/dL (6.4-8.4) Albumin 1.9g/dL (3.4-5.0) Procalcitonin 1.22ng/mL (0.00-0.08) Test 01/12/17 05:40 White Blood Count 11.7th/mm3 (3.8-10.1) Red Blood Count 3.38mil/mm3 (4.40-5.80) Hemoglobin 9.8g/dL (13.8-17.2) Hematocrit 30.6% (41.0-50.0) Mean Corpuscular Volume 90.5fL (81-100) Mean Corpuscular Hemoglobin 29.0pg (27.0-35.0) Mean Corpuscular Hemoglobin Concent 32.0% (32.0-37.0) Red Cell Distribution Width 14.6% (12.3-15.4) Platelet Count 411bil/L (150-400) Neutrophils (%) (Auto) 76.0% (40-74) Lymphocytes (%) (Auto) 14.0% (14-46) Monocytes (%) (Auto) 7.3% (4-12) Eosinophils (%) (Auto) 2.2% (0-5) Basophils (%) (Auto) 0.2% (0-3) Prothrombin Time 14.7sec (8.1-12.5) Prothromb Time International Ratio 1.37ratio Sodium Level 135mEq/L (134-144) Potassium Level 5.8mEq/L (3.5-5.2) Chloride Level 104mEq/L (97-108) Carbon Dioxide Level 18mmol/L (18-29) Blood Urea Nitrogen 62mg/dL (8-27) Creatinine 2.12mg/dL (0.76-1.27) Estimat Glomerular Filtration Rate 33mL/min (>59) Glucose Level 163mg/dL (60-99) Calcium Level 7.9mg/dL (8.5-10.1) Plan Impression Patient chart reviewed, patient interviewed and anesthestic plan with risks, benefits, and alternatives discussed, and informed consent obtained. NPO per Anesth. Guidelines: Yes ASA Physical Status: ASA3 Severe Disease Anesthetic Plan: MAC Bene/Risks/Altern/Consents: Yes HP Complete Prior to Induction: Yes Rip Carter MD Jan 12, 2017 13:04
[2017-01-12 14:31] VITALS: BP_SYST 157; PULSE 40; RESP 16; O2SAT 98
[2017-01-12] MEDS: fentaNYL-PF 50 mCg/mL 2 mL Inj ONE ×2 (15:15→15:25)
[2017-01-12 16:25] VITALS: BP 171/73; PULSE 72; RESP 18; O2SAT 98
--- NOTE | 2017-01-12 16:41 | NUR ---
PACU to [facility] Pt. returned to [facility] at 1610. Surgery was cancelled. [facility] advised holding Coumadin this evening, anticipating surgery tomorrow.
--- NOTE | 2017-01-12 18:48 | PCM.ANEP1 ---
Post Anesthesia PACU Phase 1 Assessment Vital Signs Vital Signs Date Time Temp Pulse Resp B/P Pulse Ox O2 Delivery O2 Flow Rate FiO2 01/12/17 16:25 36.7 72 18 171/73 98 Room Air 01/12/17 14:31 40 16 157/ 98 Nasal Cannula 2 01/12/17 11:56 36.8 70 17 151/67 95 Room Air Anesthetic Administered: MAC Level of Alertness: Awake, talking MICHELLE's with Equal Strength: Yes Pain: No Pain Scale Score: 3 Nausea or Vomiting: No CV Function & Hydration Stable: Yes Airway Device: Oxygen Delivery: Nasal Cannula Lungs: Clear to Auscultation, Normal Air Movement PACU Phase 2 Assessment Complications: No Follow up Care: No Patient Instructions Provided: N/A Comments Case cancelled after mild sedation (20 mg total of propofol). Rip Gar MD Jan 12, 2017 18:48
[2017-01-12 20:18] VITALS: BP 141/68; PULSE 69; RESP 18; O2SAT 96
--- NOTE | 2017-01-12 23:50 | PROG NOTE ---
[address] [address] PROGRESS NOTE PATIENT: DARA OLIVAS : 1945 MR#: [id number] ADMIT: 01/03/2017 JOB ID: [id number] DATE: 01/12/2017 SUBJECTIVE: The patient is seen up in the operating room preop area. He denies any increasing pain, fever or chills. PHYSICAL EXAMINATION: Blood pressure 171/73, pulse 72, respirations 18, temperature 36.7, pulse oximetry 98% on room air. Lower extremity exam: Dressing is intact, with moderate amount of serosanguineous and yellow drainage. There is increased erythema and swelling around the ulceration, including the area around the 3rd metatarsal shaft area. There is decreased pustular discharge from the ankle area as well as the lateral border. However, there is some necrotic and fibrotic tissue around the area of the extensor retinaculum where the extensor tendons come out. The bone of the 2nd metatarsal is yellow discolored. The bone of the 3rd metatarsal medially is also becoming more yellow discolored. The distal end of the 2nd metatarsal is yellow-brown discolored, and the distal shaft of the 3rd metatarsal is yellow discolored. There is increased granulated tissue in all other areas. The tendon extending to the 3rd toe is more yellow and appears more dry today. There is no erythema or swelling to the remaining toes of the right foot. LABORATORY DATA: WBC 11.7, hemoglobin 9.8, hematocrit 30.6, platelets 411, neutrophils 76. Sodium 135, potassium 5.8, chloride 104, carbon dioxide 18, BUN 62, creatinine 2.12, estimated GFR 33, glucose 163. PT 14.7, INR 1.37. ASSESSMENT AND PLAN: 1. Cellulitis with osteomyelitis. His acute symptoms are beginning to get worse and his white count is becoming elevated. The wound, unfortunately, has taken a turn for the worse since yesterday. The plan was to resect more of the 2nd metatarsal as well as open up the area around the extensor retinaculum, and explore the lateral border of the left foot. However, the surgery was canceled due to emergency surgeries which were more urgent than his condition. It is looking more that the patient's foot may not be a viable option as his level of bone involvement is quite extensive and is not improving with IV antibiotics. His acute symptoms are also getting worse. I debrided the tendon overlying the 3rd metatarsal as well as debrided the nonviable fibrotic and necrotic tissue within the wound bed to see if this would help. I will reassess the situation tomorrow. 2. Hyperkalemia with worsening kidney function. His kidney function is also becoming elevated and his potassium was slightly elevated. 3. Type 2 diabetes with peripheral neuropathy. His blood sugars are under 200 today. His albumin, however, remains low and this would decrease his ability to heal wounds.
[2017-01-13] MEDS: Sodium Chloride LOK Flush 10 mL Syringe IVFLUSH SCH ×3 (00:13→16:30)
[2017-01-13] MEDS: Piperacillin-Tazo 3.375 Gm Inj 3.375 GM in Dextrose 5% Minibag Plus 50 ML IV SCH ×3 (00:13→15:55)
[2017-01-13] MEDS: Lactated Ringer's 1,000 ML IV SCH ×3 (01:21→21:35)
[2017-01-13 05:41] VITALS: BP 179/70; PULSE 89; RESP 18; O2SAT 94
--- NOTE | 2017-01-13 06:09 | NUR ---
BLOOD SUGARS Pt's blood sugars 150's, 30 units Lantus given, no correctional insulin given. Pt had a restful night, uneventful. Pt hypertensive, denies pain @ this time. Pt kept NPO for possible surgery in AM.
[2017-01-13 06:14] LABS: BASOPHILS % (AUTO) 0.2 % (0-3); EOSINOPHILS % (AUTO) 2.3 % (0-5); INR 1.55 ratio; MONOCYTES % (AUTO) 7.6 % (4-12); Mean Corpuscular Hemoglobin 30.1 pg (27.0-35.0); NEUTROPHILS % (AUTO) 76.2 % (40-74); Platelet Count 433 bil/L (150-400)
[2017-01-13 06:32] LABS: Magnesium 2.5 mg/dL (1.6-2.6)
[2017-01-13] MEDS: Insulin LISPRO 300 Unit/3 mL Inj SUBQ SCH ×7 (07:30→21:46)
[2017-01-13] MEDS: Insulin GLARgine 100 Unit/mL Syringe SUBQ SCH ×2 (08:52→21:45)
--- NOTE | 2017-01-13 09:29 | PCM.PNMED ---
Subjective Date of Service Jan 13, 2017 Subjective pt remained stable, no complaints surgery was delayed, tentative plan for amputation today per Exam Vital Signs Vital Sign - Last Date Time Temp Pulse Resp B/P Pulse Ox O2 Delivery O2 Flow Rate FiO2 01/13/17 05:41 36.8 89 18 179/70 94 Room Air 01/12/17 14:31 2 Intake and Output 01/12/17 01/12/17 01/13/17 Cumulative From/Thru 14:59 22:59 06:59 01/03/17 11:59 - 01/13/17 05:58 Intake Total 568 ml 1886 ml 85797 ml Output Total 900 ml 95019 ml Balance 568 ml 986 ml 20488 ml Intake Oral 636 ml 9580 ml IV Total 568 ml 1250 ml 80035 ml TPN/PPN 100 ml Output Urine Total 900 ml 66146 ml Estimated Blood Loss 30 ml # Voids 3 # Bowel Movements 1 3 Exam NAD, comfortably laying down on the bed no JVD, MMM, no LAD RRR, nl s1, s2 no mrg CTAB, no w,c S,ND,NT,normoactive BS+ left foot, sterilely dressed, chronic skin chg, IVs and Medications Medications Reviewed: Medications were reviewed in detail Lab and Diagnostics Result Diagram: 01/13/1752001/13/17520 Microbiology Laboratory Tests 72 Hours Test 01/06/17 19:59 01/07/17 03:10 01/08/17 03:00 01/09/17 02:55 Urine Color Yellow (YELLOW) Urine Appearance Hazy (CLEAR,HAZY) Urine pH 5.0 (5.0-8.0) Urine Specific [place] 1.020 (1.003-1.035) Urine Protein 30mg/dL (NEG,TRACE) Urine Glucose (UA) Negativemg/dL (NEGATIVE) Urine Ketones Negativemg/dL (NEGATIVE) Urine Occult Blood Small (NEGATIVE) Urine Nitrite Negative (NEGATIVE) Urine Bilirubin Negative (NEGATIVE) Urine Urobilinogen Normalmg/dL (NORMAL) Urine Leukocyte Esterase Negative (NEGATIVE) Urine RBC 0-2/hpf (0-2) Urine WBC 0-5/hpf (0-5) Urine Epithelial Cells Occasional/hpf (NONE-MOD) Urine Crystals Amorphous urates (NONE Urine Bacteria None/hpf (NONE-FEW) Urine Hyaline Casts None/lpf (NONE) Urine Granular Casts None seen (NONE SEEN) Urine Waxy Casts None seen (NONE SEEN) Urine Red Blood Cell Casts None seen (NONE SEEN) Urine White Blood Cell Casts None seen (NONE SEEN) Urine Mucus None seen (None Seen) Urine Trichomonas None seen (NONE SEEN) Urine Yeast None (NONE SEEN) Urinalysis Comment None Urine Culture Reflexed Not indicated White Blood Count 10.0th/mm3 (3.8-10.1) 10.9th/mm3 (3.8-10.1) 9.6th/mm3 (3.8-10.1) Red Blood Count 3.44mil/mm3 (4.40-5.80) 3.50mil/mm3 (4.40-5.80) 3.28mil/mm3 (4.40-5.80) Hemoglobin 10.2g/dL (13.8-17.2) 10.4g/dL (13.8-17.2) 9.5g/dL (13.8-17.2) Hematocrit 31.7% (41.0-50.0) 31.8% (41.0-50.0) 29.7% (41.0-50.0) Mean Corpuscular Volume 92.2fL (81-100) 90.9fL (81-100) 90.5fL (81-100) Mean Corpuscular Hemoglobin 29.7pg (27.0-35.0) 29.7pg (27.0-35.0) 29.0pg (27.0-35.0) Mean Corpuscular Hemoglobin Concent 32.2% (32.0-37.0) 32.7% (32.0-37.0) 32.0% (32.0-37.0) Red Cell Distribution Width 15.3% (12.3-15.4) 14.9% (12.3-15.4) 14.9% (12.3-15.4) Platelet Count 208bil/L (150-400) 287bil/L (150-400) 312bil/L (150-400) Neutrophils (%) (Auto) 73.2% (40-74) 77.9% (40-74) 74.0% (40-74) Lymphocytes (%) (Auto) 11.4% (14-46) 9.2% (14-46) 12.4% (14-46) Monocytes (%) (Auto) 12.6% (4-12) 10.9% (4-12) 11.5% (4-12) Eosinophils (%) (Auto) 2.2% (0-5) 1.3% (0-5) 1.6% (0-5) Basophils (%) (Auto) 0.1% (0-3) 0.2% (0-3) 0.1% (0-3) Prothrombin Time 38.9sec (8.1-12.5) 38.7sec (8.1-12.5) 43.1sec (8.1-12.5) Prothromb Time International Ratio 3.54ratio 3.53ratio 3.92ratio Sodium Level 134mEq/L (134-144) 133mEq/L (134-144) 136mEq/L (134-144) Potassium Level 4.8mEq/L (3.5-5.2) 4.7mEq/L (3.5-5.2) 4.4mEq/L (3.5-5.2) Chloride Level 102mEq/L (97-108) 102mEq/L (97-108) 106mEq/L (97-108) Carbon Dioxide Level 19mmol/L (18-29) 18mmol/L (18-29) 19mmol/L (18-29) Blood Urea Nitrogen 53mg/dL (8-27) 50mg/dL (8-27) 52mg/dL (8-27) Creatinine 1.83mg/dL (0.76-1.27) 1.79mg/dL (0.76-1.27) 1.75mg/dL (0.76-1.27) Estimat Glomerular Filtration Rate 39mL/min (>59) 40mL/min (>59) 41mL/min (>59) Glucose Level 348mg/dL (60-99) 273mg/dL (60-99) 247mg/dL (60-99) Calcium Level 7.9mg/dL (8.5-10.1) 8.0mg/dL (8.5-10.1) 7.9mg/dL (8.5-10.1) Procalcitonin 3.58ng/mL (0.00-0.08) 3.22ng/mL (0.00-0.08) X-Rays, CTs and MRIs CT brain 1. No acute intracranial abnormalities. 2. Cerebral volume loss and chronic microvascular ischemic change Dictated by: Milton Bardales M.D. on 01/03/2017 at 12:54 Chest x-ray IMPRESSION: No acute cardiopulmonary disease. Dictated by: Milton Bardales M.D. on 01/03/2017 at 13:55 Venous duplex IMPRESSION: No deep venous thrombosis in the right lower extremity. Dictated by: Milton Bardales M.D. on 01/03/2017 at 12:40 01/04 PROCEDURE: X-RAY RIGHT FOOT COMPLETE, MINIMUM THREE VIEWS ([id number]) IMPRESSION: Worsening osteomyelitis involving the first metatarsal head with gas within the adjacent soft tissues as well as throughout the dorsal aspect of the soft tissues. Although the gas may be related to recent instrumentation, developing necrotizing fasciitis cannot be excluded and clinical correlation and followup is recommended. Dr. Key given results at 1108 hours on 01/05/2017. Dictated by: Sung Tejada [facility] Interpreted: Rhona Paige MD on 01/05/2017 at 10:56 01/05 PROCEDURE: X-RAY RIGHT FOOT COMPLETE, MINIMUM THREE VIEWS ([id number]) IMPRESSION: Interval postoperative changes of the right forefoot as described. No radiopaque foreign bodies. Dictated by: Ronal Galindo M.D. on 01/05/2017 at 15:58 01/06 PROCEDURE: US RENAL SONOGRAM 1. Left renal inferior exophytic cyst otherwise normal kidneys. 2. 707 cc prevoid urinary volume and postvoid residual cannot be assessed. Cardiac Echo Impressions Last echo 04/06/16 Interpretation Summary Left ventricular wall thickness is mild-moderately increased. Assessment of diastolic parameters indicates a relaxation abnormality of the left ventricle, consistent with normal filling pressures. The right ventricle is normal in size and function. Pulmonary artery pressures cannot be estimated because of the lack of a measurable TR jet velocity. Both atria are normal in size. There is no significant valvular heart disease. The aortic root is normal size. The aortic arch is normal in size. TTE 01/05/17 The study quality was technically difficult. A contrast injection of Definity was performed to improve assessment of LV function. Left ventricular ejection fraction is estimated to be 50%. Apical hypokinesis is suspected, LVEF is slightly lower on this exam. The right ventricle is normal size. Right ventricular systolic function is mildly reduced. The right ventricular systolic pressure is estimated at 25 mmHg assuming a right atrial pressure of 8 mm Hg. In an off axis view there is an echodensity along the superior aspect of the IAS, this could be an artifact. A VIRGINIA can hlep elucidate this further, or a limited echo to re evaluate the RA may be requested. VIRIGNIA 01/07/17 The left ventricular ejection fraction is grossly normal. The interatrial septum is intact with no evidence for an atrial septal defect. No evidence of endocarditis. No mass seen in RA, TTE finding was artifactual. Assessment & Plan 71-year-old male with recent amputation of his right big toe and insulin- dependent diabetes who presents after being found down, with hypoglycemia and increased erythema of the right lower extremity consistent with cellulitis. acute, acitve left foot cellulitis/OM, POA, serial cultures+MSSA. s/p 2nd digit amputation, serial debridement by Dr. Key -anticipate surgery today per -s/p Zosyn since 01/04/17 till 01/08/17, Ancef from 01/08/[address] Edwards Recommendation, continue to 02/14/17, switched back to zosyn as clinically worsened. - Appreciate consults by Dr. Key, Dr. Edwards and PT. - PT for help with moving in bed as patient strength worsening throughout admission. Type 2 Diabetes with peripheral neuropathy, diabetic foot ulcer, Nephropathy and no proliferative retinopathy; POA, A1c 8.9, Sepsis also likely contributed to poor control. - glucose in target with current regimen. - Lantus increased to 20AM, 30 at night,added 5 units lispro TIDAC + high dose nutritional scale lispro. - Hold Victoza sq Hypertension, uncontrolled 150-160s, increase Losartan 50 mg to 100mg today, continue Amlodipine 10 mg daily, Lasix 20 mg daily, coreg 12.5mg qd-will consider bid if remains uncontrolled chronic, stable, resolved Altered mental status and Delirium, resolved Patient has decline in mental function after VIRGINIA. Mentation seems to be declining as patient is unable to respond correctly where he is or what year it is. He also has been having slurred speech. It should be re stated that prior to admission, patient had fallen and stated he did hit his head on this head board and had his head wedged in between. Head CT at that time showed no acute intracranial abnormalities. - DDx: Includes stroke secondary to hemorrhage, medication side effects of versed and also considering reduced clearance of versed due to poor kidney function, encephalitis. - Likely secondary to medication side effects, but given history, ordered stat CT head. - Head CT unremarkable. Will decrease pain medications, cluster nursing care, ask for frequent reorientation and make sure there is daylight in room during days. - In the afternoon of 01/09/17, evaluated patient and his mentation is back to baseline when I first saw him on 01/04/17. The AMS and delirium was likely medication related as patient was given fentanyl for pain, versed for V[place]IA, flexiril for spasms. This happened within a short time period on top of poor kidney function. Shortness of breath, resolved -Patient having increased coughing and shortness of breath 01/08/17. -Chest X-ray shows impression is Bibasilar atelectasis versus aspiration or pneumonia. - Patient has been noted to be aspirating per speech evaluation and should have supervised PO intake. - Patient currently on Ancef for osteomyelitis - Acapella and Incentive spirometry - Recheck CBC Acute on chronic kidney injury; present on admission; Resolved - Baseline Cr 1.3-1.7. Due to Hypertensive nephrosclerosis and Diabetic nephropathy - Renal ultrasound showed Pre-void bladder volume is 778 mL. - Patient has Milton as of 01/06/17. Improved BUN and Cr afterwards. - avoid nephrotoxic insults, monitor urine output - Fluids discontinued 01/08/17 Paroxysmal Atrial fibrillation on Coumadin; present on admission; stable - monitored on telemetry till 01/09/17. Patient out of A. fib for several days prior. - continue rate control with Carvedilol - Continue warfarin per pharmacy - Daily INR. Ordered 2 units FFP to reduce INR below 2 prior to I&D. Patient only recieved 1 unit. Held second unit after surgery on 01/05. - Consider adding Diltiazem drip if sustained elevated HR. Severe Sepsis - Resolved Secondary to RLE cellulitis and bacteremia found on admission. Patient on admission had leukocytosis of 24.3, tachycardia and tachypnea. Leukocytosis has been improving daily now down to 13.2. RLE very hot, erythematous and edematous , with fluctuant mass on base of RLE 1st digit. This has been improving throughout his admission with treatment initially on ancef and now on zosyn. Recent cultures in September show MSSA pansensitive. Nasal MRSA swab negative. Blood cultures have also been grown gram positive cocci likely to be staph aureus. - Patient no longer tachycardic or tachypneic. Leukocytosis is down to 12.3. - Appreciate Dr. Key consult and ID consult. - I/D done 01/[address] Key drained approximately 50 cc of pustular discharge. Patient had extensive debridement and amputation of right second toe in OR 01/05. - Discontinued Ancef 01/05/17 - Continued zosyn, start date 01/04/17. Will transition to Ancef + Flagyl 01/[address] Edwards recommendation. Plan is for treatment of antibiotics for 6 weeks for osteomyelitis. - TTE showed EF of 50%, apical hypokineseis and an echodensity along the superior aspect of the IAS, which could be an artifact. VIR[place]IA would help elucidate this further. Per conversation with caridiologist, differential includes myxoma, so will proceed with VIRGINIA for 01/07. - Follow CBC, BMP -Repeat procalcitonin trended down as above Hyperlipidemia - continue Atorvastatin 40 mg daily Acquired hypothyroidism - continue Synthroid 75 mcg daily Hypoglycemia, due to noncompliance; present on admission; Resolved - Pt has been without his glucometer; when obtained reading was "very high" likely due to above infection - Patient overdosed on Lantus, taking 2-3 times more than prescribed - Continue to monitor glucose Mild troponin elevation; present on admission; Resolved -Likely due to acute kidney injury -Now wnl Anion gap metabolic acidosis with lactic acidosis; present on admission; Resolved -Anion gap improved from 20 to 12, lactic acid trended to 1.0. - IV fluids were used initially when patient had limited PO intake. Acetaminophen for mild pain when necessary. Bowel regimen Senna and MiraLAX scheduled and PRN. Zofran when necessary for nausea and vomiting. SubQ heparin held for now. SCDs in place. High-risk medications: Warfarin Disposition: Dependent upon osteomyelitis. Will be discharged to SNF when medically stable. VTE Mechanical Devices: Intermittant Pneumatic CD Time spent 35min Luigi Arrieta MD Jan 13, 2017 09:29
--- NOTE | 2017-01-13 10:54 | PROG NOTE ---
[address] [address] PROGRESS NOTE PATIENT: DARA OLIVAS : 1945 MR#: [id number] ADMIT: 01/03/2017 JOB ID: [id number] DATE: 01/13/2017 REASON FOR FOLLOWUP: Severe right diabetic foot infection with osteomyelitis and MSSA bacteremia. INTERVAL HISTORY: The patient is awake alert this morning. He denies any fevers, chills, or sweats. No new pulmonary or GI symptoms. He has no pain in his right foot. PHYSICAL EXAMINATION: Reveals an afebrile gentleman, temperature 36.8, pulse 89, respiratory rate 18, blood pressure 179/70. He is saturating well on room air. He is in no acute distress. His lungs are clear. Abdomen benign. His right foot is wrapped in a dressing. Recall that yesterday I took the dressings off and there is certainly extraordinary wound involving most of the dorsal foot, which is not coming under especially good control. Today the dressings are soaked, and I did not take them off as part of my rounds. LABORATORIES: Include white count 10,600, platelet count rising 433. Creatinine 2.04, which is reasonably stable. LFTs are normal. Procalcitonin still dropping. It started off at 19.2. Today it is down to 0.6. Micro studies include Staph aureus MSSA which grew from blood in the foot. IMPRESSION: We are winning the microbiologic war even as the patient's foot seems to be deteriorating. His Staph aureus bacteremia has been controlled. His procalcitonin is falling while he remains afebrile. Dr. Key and I agree, however his foot is actually if anything deteriorating. We had been treating very aggressively with broad-spectrum antibiotics, then narrowed to Ancef and now re-expanded back to Zosyn. But so far, the only thing we have in our cultures is the methicillin sensitive Staphylococcus aureus, which I think is the prime organism here. It is likely that the deterioration in his foot represents microvascular disease as well as a severe neuropathy, more than failure of antibiotics per se. RECOMMENDATIONS: 1. Will continue with Zosyn for the time being. 2. I note that Dr. Key is considering further debriding surgery or even amputation in view of his progressive infection. This sounds entirely reasonable and unfortunately may prove to be necessary in the very near future. No other changes in antibiotics.
[2017-01-13 12:28] VITALS: BP 155/68; PULSE 54; RESP 16; O2SAT 92
--- NOTE | 2017-01-13 15:12 | NUR ---
Up with PT only; unable to maintain WBing precautions
--- NOTE | 2017-01-13 15:42 | PCM.PHAPRO ---
Progress Warfarin Management: -warfarin was held last evening in anticipation of surgical procedure today. -will hold again this evening as pt is not going to OR today, possibly tomorrow Rashida Cruz [facility] Jan 13, 2017 15:42
[2017-01-13] MEDS: HYDROcodone-APAP 5-325 mg Tablet PO PRN ×2 (15:44→15:59)
--- NOTE | 2017-01-13 19:30 | NUR ---
Pain- Patient complained of right foot pain and requested pain med. Pain not relieved, and 2nd Vicodin given and effective for discomfort. Dr Key in to dressing change and patient appeared to tolerate it well.
[2017-01-13 20:20] VITALS: BP 121/64; PULSE 75; RESP 18; O2SAT 94
--- NOTE | 2017-01-13 22:21 | PROG NOTE ---
[address] [address] PROGRESS NOTE PATIENT: DARA OLIVAS : 1945 MR#: [id number] ADMIT: 01/03/2017 JOB ID: [id number] DATE: 01/13/2017 The patient is seen for followup of infected right foot. He states that yesterday he was in a lot of pain, however, today's is much better. He denies any fever or chills. PHYSICAL EXAMINATION: Lower extremity exam: There is a large amount of serosanguineous and yellow drainage on the dressing. There is decreased erythema and swelling of the surrounding soft tissue and skin from yesterday. There is a small amount of yellow drainage along the lateral border of the right foot. However, this is decreased from yesterday. There is some friable and estrella tissue around the area of the extensor retinaculum where the extensor digitorum longus comes out from. The bone of the second metatarsal and cuneiform are unchanged from yesterday. I do not note any granulation tissue forming over the bone or exposed. There is no erythema or swelling in remaining toes of the right foot. LABORATORY DATA: WBC 10.6, hemoglobin 9.4, hematocrit 28.7, platelets 433, neutrophils 76.2. Sodium 138, potassium 5.4, chloride 106, carbon dioxide 19, BUN 58, creatinine 2.04, estimated GFR 34, glucose 84, total protein 5, albumin 2.3. PT 16.7. INR 1.55. Wound culture from January 05 shows Staph aureus which is methicillin sensitive. No anaerobes are isolated. ASSESSMENT AND PLAN: Cellulitis with osteomyelitis, right foot. The cellulitis seems improved since I debrided some of the tendon yesterday, however, the necrotic bone within the wound base has not changed and I do not see any granulation tissue forming over the areas that are exposed. I asked to Dr. William Tovar, an orthopedic surgeon, to give his opinion on the patient's case and he recommended doing a Symes amputation at the level of the ankle joint which would allow him to have a weightbearing surface. Another option would be a Chopart amputation. This, however, is associated with equinus deformities which form after the Chopart's. The last option which I discussed with the patient would be to continue with local debridement and hyperbaric oxygen therapy, however, this would be a long drawn out process and I cannot guarantee that the infection would resolve. ADDITIONAL INFORMATION: Due to the patient's lifestyle and him living [place] the [place], it would be preferable for him to be able to continue to ambulate with the lower leg. A Syme amputation, however, would put him at risk for neuropathic ulcerations due to the amount of weight that would be placed on a small area. I did discuss this 1st with the patient. The patient is to consider both options. If surgery is performed, either way it would be done on Wednesday and will make the patient n.p.o. on night. In the meantime, will continue with IV Zosyn. Diabetic neuropathic ulceration, right foot, is showing increased granulation tissue over the soft tissue areas but not over the bone. The nonviable and fibrotic tissue around the area of the ankle joint was debrided using a tissue nipper. The area was copiously flushed with normal saline and redressed using Iodoform gauze along the lateral border of the foot as well as Hydrogel, 4 x 4 gauze, ABD, and Kerlix wrap. The patient tolerated the procedure well. Hemostasis was achieved with pressure. Decreased protein levels. His protein levels continue to be low, however, they are slightly improved as he has been trying to incorporate more protein into his diet. Addenda added by GRACIE 01/14/17 at 7:43am
[2017-01-14] MEDS: Piperacillin-Tazo 3.375 Gm Inj 3.375 GM in Dextrose 5% Minibag Plus 50 ML IV SCH ×3 (00:39→16:46)
[2017-01-14] MEDS: Sodium Chloride LOK Flush 10 mL Syringe IVFLUSH SCH ×3 (00:39→16:30)
[2017-01-14 05:19] VITALS: BP 135/70; PULSE 81; RESP 17; O2SAT 92
[2017-01-14 05:49] LABS: INR 1.35 ratio
--- NOTE | 2017-01-14 05:54 | NUR ---
Comfort Pt denies pain all shift, dressing to bilat. foot CDI.
[2017-01-14] MEDS: Lactated Ringer's 1,000 ML IV SCH ×3 (05:55→22:35)
[2017-01-14] MEDS: Insulin LISPRO 300 Unit/3 mL Inj SUBQ SCH ×7 (08:00→21:46)
[2017-01-14] MEDS: Insulin GLARgine 100 Unit/mL Syringe SUBQ SCH ×2 (08:35→21:44)
--- NOTE | 2017-01-14 08:59 | PCM.PNMED ---
Subjective Date of Service Jan 14, 2017 Subjective pt underwent serial I&D by , likely to undergo amputation on Wednesday pt denied pain, eating well, no n/v fsg in target 80s this AM Exam Vital Signs Vital Sign - Last Date Time Temp Pulse Resp B/P Pulse Ox O2 Delivery O2 Flow Rate FiO2 01/14/17 05:19 36.8 81 17 135/70 92 Room Air 01/12/17 14:31 2 Intake and Output 01/13/17 01/13/17 01/14/17 Cumulative From/Thru 15:00 23:00 07:00 01/03/17 11:59 - 01/14/17 05:18 Intake Total 756 ml 450 ml 85547 ml Output Total 900 ml 950 ml 60787 ml Balance -144 ml -500 ml 60144 ml Intake Oral 756 ml 400 ml 83860 ml IV Total 50 ml 88232 ml TPN/PPN 100 ml Output Urine Total 900 ml 950 ml 89195 ml Estimated Blood Loss 30 ml # Voids 3 # Bowel Movements 1 0 4 Exam NAD, comfortably laying down on the bed no JVD, MMM, no LAD RRR, nl s1, s2 no mrg CTAB, no w,c S,ND,NT,normoactive BS+ left foot, sterilely dressed, chronic skin chg, IVs and Medications Medications Reviewed: Medications were reviewed in detail Lab and Diagnostics Result Diagram: 01/13/1752001/13/17520 Microbiology Laboratory Tests 72 Hours Test 01/06/17 19:59 01/07/17 03:10 01/08/17 03:00 01/09/17 02:55 Urine Color Yellow (YELLOW) Urine Appearance Hazy (CLEAR,HAZY) Urine pH 5.0 (5.0-8.0) Urine Specific Rugby 1.020 (1.003-1.035) Urine Protein 30mg/dL (NEG,TRACE) Urine Glucose (UA) Negativemg/dL (NEGATIVE) Urine Ketones Negativemg/dL (NEGATIVE) Urine Occult Blood Small (NEGATIVE) Urine Nitrite Negative (NEGATIVE) Urine Bilirubin Negative (NEGATIVE) Urine Urobilinogen Normalmg/dL (NORMAL) Urine Leukocyte Esterase Negative (NEGATIVE) Urine RBC 0-2/hpf (0-2) Urine WBC 0-5/hpf (0-5) Urine Epithelial Cells Occasional/hpf (NONE-MOD) Urine Crystals Amorphous urates (NONE Urine Bacteria None/hpf (NONE-FEW) Urine Hyaline Casts None/lpf (NONE) Urine Granular Casts None seen (NONE SEEN) Urine Waxy Casts None seen (NONE SEEN) Urine Red Blood Cell Casts None seen (NONE SEEN) Urine White Blood Cell Casts None seen (NONE SEEN) Urine Mucus None seen (None Seen) Urine Trichomonas None seen (NONE SEEN) Urine Yeast None (NONE SEEN) Urinalysis Comment None Urine Culture Reflexed Not indicated White Blood Count 10.0th/mm3 (3.8-10.1) 10.9th/mm3 (3.8-10.1) 9.6th/mm3 (3.8-10.1) Red Blood Count 3.44mil/mm3 (4.40-5.80) 3.50mil/mm3 (4.40-5.80) 3.28mil/mm3 (4.40-5.80) Hemoglobin 10.2g/dL (13.8-17.2) 10.4g/dL (13.8-17.2) 9.5g/dL (13.8-17.2) Hematocrit 31.7% (41.0-50.0) 31.8% (41.0-50.0) 29.7% (41.0-50.0) Mean Corpuscular Volume 92.2fL (81-100) 90.9fL (81-100) 90.5fL (81-100) Mean Corpuscular Hemoglobin 29.7pg (27.0-35.0) 29.7pg (27.0-35.0) 29.0pg (27.0-35.0) Mean Corpuscular Hemoglobin Concent 32.2% (32.0-37.0) 32.7% (32.0-37.0) 32.0% (32.0-37.0) Red Cell Distribution Width 15.3% (12.3-15.4) 14.9% (12.3-15.4) 14.9% (12.3-15.4) Platelet Count 208bil/L (150-400) 287bil/L (150-400) 312bil/L (150-400) Neutrophils (%) (Auto) 73.2% (40-74) 77.9% (40-74) 74.0% (40-74) Lymphocytes (%) (Auto) 11.4% (14-46) 9.2% (14-46) 12.4% (14-46) Monocytes (%) (Auto) 12.6% (4-12) 10.9% (4-12) 11.5% (4-12) Eosinophils (%) (Auto) 2.2% (0-5) 1.3% (0-5) 1.6% (0-5) Basophils (%) (Auto) 0.1% (0-3) 0.2% (0-3) 0.1% (0-3) Prothrombin Time 38.9sec (8.1-12.5) 38.7sec (8.1-12.5) 43.1sec (8.1-12.5) Prothromb Time International Ratio 3.54ratio 3.53ratio 3.92ratio Sodium Level 134mEq/L (134-144) 133mEq/L (134-144) 136mEq/L (134-144) Potassium Level 4.8mEq/L (3.5-5.2) 4.7mEq/L (3.5-5.2) 4.4mEq/L (3.5-5.2) Chloride Level 102mEq/L (97-108) 102mEq/L (97-108) 106mEq/L (97-108) Carbon Dioxide Level 19mmol/L (18-29) 18mmol/L (18-29) 19mmol/L (18-29) Blood Urea Nitrogen 53mg/dL (8-27) 50mg/dL (8-27) 52mg/dL (8-27) Creatinine 1.83mg/dL (0.76-1.27) 1.79mg/dL (0.76-1.27) 1.75mg/dL (0.76-1.27) Estimat Glomerular Filtration Rate 39mL/min (>59) 40mL/min (>59) 41mL/min (>59) Glucose Level 348mg/dL (60-99) 273mg/dL (60-99) 247mg/dL (60-99) Calcium Level 7.9mg/dL (8.5-10.1) 8.0mg/dL (8.5-10.1) 7.9mg/dL (8.5-10.1) Procalcitonin 3.58ng/mL (0.00-0.08) 3.22ng/mL (0.00-0.08) X-Rays, CTs and MRIs CT brain 1. No acute intracranial abnormalities. 2. Cerebral volume loss and chronic microvascular ischemic change Dictated by: Milton Bardales M.D. on 01/03/2017 at 12:54 Chest x-ray IMPRESSION: No acute cardiopulmonary disease. Dictated by: Milton Bardales M.D. on 01/03/2017 at 13:55 Venous duplex IMPRESSION: No deep venous thrombosis in the right lower extremity. Dictated by: Milton Bardales M.D. on 01/03/2017 at 12:40 01/04 PROCEDURE: X-RAY RIGHT FOOT COMPLETE, MINIMUM THREE VIEWS ([id number]) IMPRESSION: Worsening osteomyelitis involving the first metatarsal head with gas within the adjacent soft tissues as well as throughout the dorsal aspect of the soft tissues. Although the gas may be related to recent instrumentation, developing necrotizing fasciitis cannot be excluded and clinical correlation and followup is recommended. Dr. Key given results at 1108 hours on 01/05/2017. Dictated by: Sung Tejada [facility] Interpreted: Rhona Paige MD on 01/05/2017 at 10:56 01/05 PROCEDURE: X-RAY RIGHT FOOT COMPLETE, MINIMUM THREE VIEWS ([id number]) IMPRESSION: Interval postoperative changes of the right forefoot as described. No radiopaque foreign bodies. Dictated by: Ronal Galindo M.D. on 01/05/2017 at 15:58 01/06 PROCEDURE: US RENAL SONOGRAM 1. Left renal inferior exophytic cyst otherwise normal kidneys. 2. 707 cc prevoid urinary volume and postvoid residual cannot be assessed. Cardiac Echo Impressions Last echo 04/06/16 Interpretation Summary Left ventricular wall thickness is mild-moderately increased. Assessment of diastolic parameters indicates a relaxation abnormality of the left ventricle, consistent with normal filling pressures. The right ventricle is normal in size and function. Pulmonary artery pressures cannot be estimated because of the lack of a measurable TR jet velocity. Both atria are normal in size. There is no significant valvular heart disease. The aortic root is normal size. The aortic arch is normal in size. TTE 01/05/17 The study quality was technically difficult. A contrast injection of Definity was performed to improve assessment of LV function. Left ventricular ejection fraction is estimated to be 50%. Apical hypokinesis is suspected, LVEF is slightly lower on this exam. The right ventricle is normal size. Right ventricular systolic function is mildly reduced. The right ventricular systolic pressure is estimated at 25 mmHg assuming a right atrial pressure of 8 mm Hg. In an off axis view there is an echodensity along the superior aspect of the IAS, this could be an artifact. A VIRGINIA can hlep elucidate this further, or a limited echo to re evaluate the RA may be requested. V[place]IA 01/07/17 The left ventricular ejection fraction is grossly normal. The interatrial septum is intact with no evidence for an atrial septal defect. No evidence of endocarditis. No mass seen in RA, TTE finding was artifactual. Assessment & Plan 71-year-old male with recent amputation of his right big toe and insulin- dependent diabetes who presents after being found down, with hypoglycemia and increased erythema of the right lower extremity consistent with cellulitis. acute, acitve left foot cellulitis/OM, POA, serial cultures+MSSA. s/p 2nd digit amputation, serial debridement by Dr. Key -anticipate amputation per , with Orthopedic -s/p Zosyn since 01/04/17 till 01/08/17, Ancef from 01/08/[address] Edwards Recommendation, continue to 02/14/17, switched back to zosyn as clinically worsened. - Appreciate consults by Dr. Key, Dr. Edwards and PT. - PT for help with moving in bed as patient strength worsening throughout admission. Type 2 Diabetes with peripheral neuropathy, diabetic foot ulcer, Nephropathy and no proliferative retinopathy; POA, A1c 8.9, Sepsis also likely contributed to poor control. - glucose in target with current regimen. - Lantus increased to 20AM, 30 at night,added 5 units lispro TIDAC + high dose nutritional scale lispro. - Hold Victoza sq Hypertension, controlled, increased Losartan 50 mg to 100mg, continue Amlodipine 10 mg daily, Lasix 20 mg daily, coreg 12.5mg qd-will consider bid if remains uncontrolled chronic, stable, resolved Altered mental status and Delirium, resolved Patient has decline in mental function after VIR[place]IA. Mentation seems to be declining as patient is unable to respond correctly where he is or what year it is. He also has been having slurred speech. It should be r e stated that prior to admission, patient had fallen and stated he did hit his head on this head board and had his head wedged in between. Head CT at that time showed no acute intracranial abnormalities. - DDx: Includes stroke secondary to hemorrhage, medication side effects of versed and also considering reduced clearance of versed due to poor kidney function, encephalitis. - Likely secondary to medication side effects, but given history, ordered stat CT head. - Head CT unremarkable. Will decrease pain medications, cluster nursing care, ask for frequent reorientation and make sure there is daylight in room during days. - In the afternoon of 01/09/17, evaluated patient and his mentation is back to baseline when I first saw him on 01/04/17. The AMS and delirium was likely medication related as patient was given fentanyl for pain, versed for [place], flexiril for spasms. This happened within a short time period on top of poor kidney function. Shortness of breath, resolved -Patient having increased coughing and shortness of breath 01/08/17. -Chest X-ray shows impression is Bibasilar atelectasis versus aspiration or pneumonia. - Patient has been noted to be aspirating per speech evaluation and should have supervised PO intake. - Patient currently on Ancef for osteomyelitis - Acapella and Incentive spirometry - Recheck CBC Acute on chronic kidney injury; present on admission; Resolved - Baseline Cr 1.3-1.7. Due to Hypertensive nephrosclerosis and Diabetic nephropathy - Renal ultrasound showed Pre-void bladder volume is 778 mL. - Patient has Milton as of 01/06/17. Improved BUN and Cr afterwards. - avoid nephrotoxic insults, monitor urine output - Fluids discontinued 01/08/17 Paroxysmal Atrial fibrillation on Coumadin; present on admission; stable - monitored on telemetry till 01/09/17. Patient out of A. fib for several days prior. - continue rate control with Carvedilol - Continue warfarin per pharmacy - Daily INR. Ordered 2 units FFP to reduce INR below 2 prior to I&D. Patient only recieved 1 unit. Held second unit after surgery on 01/05. - Consider adding Diltiazem drip if sustained elevated HR. Severe Sepsis - Resolved Secondary to RLE cellulitis and bacteremia found on admission. Patient on admission had leukocytosis of 24.3, tachycardia and tachypnea. Leukocytosis has been improving daily now down to 13.2. RLE very hot, erythematous and edematous , with fluctuant mass on base of RLE 1st digit. This has been improving throughout his admission with treatment initially on ancef and now on zosyn. Recent cultures in September show MSSA pansensitive. Nasal MRSA swab negative. Blood cultures have also been grown gram positive cocci likely to be staph aureus. - Patient no longer tachycardic or tachypneic. Leukocytosis is down to 12.3. - Appreciate Dr. Key consult and ID consult. - I/D done 01/[address] Key drained approximately 50 cc of pustular discharge. Patient had extensive debridement and amputation of right second toe in OR 01/05. - Discontinued Ancef 01/05/17 - Continued zosyn, start date 01/04/17. Will transition to Ancef + Flagyl 01/[address] Edwards recommendation. Plan is for treatment of antibiotics for 6 weeks for osteomyelitis. - TTE showed EF of 50%, apical hypokineseis and an echodensity along the superior aspect of the IAS, which could be an artifact. V[place]IA would help elucidate this further. Per conversation with caridiologist, differential includes myxoma, so will proceed with VIR[place]IA for 01/07. - Follow CBC, BMP -Repeat procalcitonin trended down as above Hyperlipidemia - continue Atorvastatin 40 mg daily Acquired hypothyroidism - continue Synthroid 75 mcg daily Hypoglycemia, due to noncompliance; present on admission; Resolved - Pt has been without his glucometer; when obtained reading was "very high" likely due to above infection - Patient overdosed on Lantus, taking 2-3 times more than prescribed - Continue to monitor glucose Mild troponin elevation; present on admission; Resolved -Likely due to acute kidney injury -Now wnl Anion gap metabolic acidosis with lactic acidosis; present on admission; Resolved -Anion gap improved from 20 to 12, lactic acid trended to 1.0. - IV fluids were used initially when patient had limited PO intake. Acetaminophen for mild pain when necessary. Bowel regimen Senna and MiraLAX scheduled and PRN. Zofran when necessary for nausea and vomiting. SubQ heparin held for now. SCDs in place. High-risk medications: Warfarin Disposition: pending given surgical course, will be discharged to SNF when medically stable. VTE Mechanical Devices: Intermittant Pneumatic CD Time spent 35min Luigi Arrieta MD Jan 14, 2017 08:59
[2017-01-14 09:07] VITALS: BP 171/77; PULSE 82; RESP 20; O2SAT 93
--- NOTE | 2017-01-14 14:17 | PROG NOTE ---
[address] [address] PROGRESS NOTE PATIENT: DARA OLIVAS : 1945 MR#: [id number] ADMIT: 01/03/2017 JOB ID: [id number] INFECTIOUS DISEASE FOLLOWUP: DATE: 01/14/2017 REASON FOR FOLLOWUP: Severe right diabetic foot infection with osteomyelitis. INTERVAL HISTORY: The patient reports no change. He says he has no fevers, chills, cough, nausea, vomiting or diarrhea. He has no pain in his foot. We discussed his goals. He said he would like to keep as much of his foot as possible and he has no problem with prolonged IV antibiotics and hyperbaric therapy if we think that might help. PHYSICAL EXAMINATION: Reveals an afebrile gentleman, temperature 36.9, pulse 82, respiratory rate 20, blood pressure 171/77. He is in no acute distress. Oral cavity negative. Lungs clear. Cardiac tones without change. Abdomen benign. Right foot is in a large dressing. I did not remove. LABORATORIES: Include a white count yesterday 10,600; that was not repeated today. His procalcitonin is down to 0.66, down from a peak of 20, demonstrating dramatic improvement of course. Urinalysis 0-5 white cells. His blood and foot initially grew MSSA. Followup blood cultures have been negative. IMAGING: No new imaging has been performed. IMPRESSION: I had a chance to discuss this case in detail with both the patient as well as Dr. De Luna today. Dr. De Luna and Orthopedics are discussing various amputation options including disarticulation of the foot, below-knee amputation, and other options. The patient would like to preserve as much of his foot as possible and says he has no issues with travel for hyperbarics or continued IV antibiotics as we see fit, if there is a realistic chance of preserving his foot. RECOMMENDATIONS: 1. Will continue with broad-spectrum antibiotics at this point, which include Zosyn, though I think we may transition back to a more MSSA specific regimen in the near future. 2. Total duration of intravenous antibiotics will be least six weeks with followup IV antibiotics thereafter. 3. Hyperbaric oxygen may be valuable adjuvant in this case if we make a more aggressive attempt to salvage the patient's foot. 4. Given the very slow healing of his foot at this point, I am not sanguine about his chances to save the foot, but if that is his priority, I think there is a chance that this might be successful.
--- NOTE | 2017-01-14 15:09 | PATH ---
SURGICAL PATHOLOGY Attending Physician:Jeanne Key DPM CASE STATUS: Signed Out PATIENT NAME: DARA OLIVAS PID: [id number] : 1945 DATE COLLECTED:01/11/2017 00:00 SPECIMEN: Bone, Biopsy CLINICAL HISTORY: LARGE OPEN WOUND RIGHT FOOT, DIABETIC 1). RIGHT FOOT BONE FINAL DIAGNOSIS: Specimen Designated Right Foot Bone: Fragments of necrotic bone with fibrous tissue and cartilage. ICD10: N79.9 N87.374 GROSS DESCRIPTION: Received in formalin, labeled with the patient's name and "R foot" are white crumbling fragments measuring 0.5 x 0.3 x 0.1 cm in aggregate and totally submitted in one cassette. [id number]) MICRO DESCRIPTION: Sections are of bone and tissue stated to be from an open wound in the right foot. There are fragments of necrotic nonviable bone present as well as fibrous tissue and cartilage. Scattered hyperchromatic degenerating cells are noted which probably represent degenerating fibrous tissue; however, immunohistochemistry is performed in order to rule out the possibility of epithelial origin and/or hematopoietic origin. The antibodies utilized are directed against ALEX (epithelial) and CD45 (hematopoietic) and both of these are negative. ICD-9 CODES: CPT CODES: 1: 41868, 27660, 66215, 58030 Electronically Signed Out By Anshul Garcia MD [facility] Anshul Garcia MD [facility], [address] [place] [address] Technical component performed at [facility], [facility] [address], [place], [address]
--- NOTE | 2017-01-14 15:24 | NUR ---
Social Work- Multi- Disciplinary Rounds/Continued D/C Planning Data: EMR reviewed. Pt is on day 11 of hospitalization. Per multi-disciplinary rounds pt's wounds have undergone multiple debridments. ID is following pt. Podiatry is following pt. Pt is a candidate for a possible amputation tomorrow. Pt will require PT and IV abx at SNF. PT continues to work with pt and pt is unable to maintain WB precautions. Pt continues on Zosyn but per MD in rounds it may change to Ancef. [facility] accepted pt pending insurance authorization and review of final abx recommendations. [facility] will continue to update [facility]. [facility] also has access. Paperwork in chart. PASRR in folder. SW will continue to follow. Assessment: Pt for whom SNF is medically necessary Plan: [facility] has accepted pt pending insurance authorization and review of final abx recommendations. [facility] will continue to update [facility]. Paperwork in chart. PASRR in folder. SW will continue to follow. YINA Iverson
--- NOTE | 2017-01-14 17:26 | NUR ---
POST-OP PROGRESS Patient is alert and oriented X 4. Denies pain. Baseline neuropathy secondary to his DM. Tolerating liquids PO and his diet well. Denies nausea. No emesis noted. Denies SOB. Patient was able to transfer to the chair with 1 PA and a FWW. Tolerated activity well. Needs frequent reminder RE: WB precaution. Dressing changed by [facility] on his R/L foot. NPO after midnight.
[2017-01-14 20:30] VITALS: BP 156/79; PULSE 110; RESP 18; O2SAT 98
--- NOTE | 2017-01-14 23:24 | PROG NOTE ---
[address] [address] PROGRESS NOTE PATIENT: DARA OLIVAS : 1945 MR#: [id number] ADMIT: 01/03/2017 JOB ID: [id number] DATE: 01/14/2017 The patient is seen for followup of infected ulcer, right foot. He denies any new problems with his foot. His back was sore, and he has been trying to lie on his side. Denies any pain in his foot, fever or chills. PHYSICAL EXAMINATION: Blood pressure 156/79, pulse 110, respiratory rate 19, temperature 36.8, pulse oximetry 98% on room air. Lower extremity exam: There is moderate amount of serosanguineous and yellow drainage on his dressing, however, decreased from yesterday. There is increased granulation tissue within the wound base, however, the areas that have the bone exposed is unchanged. There is decreased pustular drainage from the ankle and lateral border. The extensor tendons to his 4th and 5th metatarsal are intact, however, they appear yellow discolored. He still is able to dorsiflex his foot. There is very mild erythema and swelling around the wound margins. Pathology of bone from the second metatarsal base collected on January 11, 2017 from the 2nd metatarsal base shows fragments of necrotic bone with fibrous tissue and cartilage. Neurovascular status intact to all toes remaining of the right foot. ASSESSMENT/PLAN: 1. Cellulitis with osteomyelitis, right foot. The acute signs of infection are receding well. There is still issue of osteomyelitis, however. I spoke with Dr. Artie Tovar yesterday who suggested a terminal Symes amputation, however, due to medical credentialing issue at the hospital, he is not able to perform the procedure. He was kind enough to contact other surgeons, however, he was unable to find a surgeon who would be willing to perform the procedure. I spoke with Dr. Edwards regarding the osteomyelitis and we both agreed that it would be worth a try to save the foot by continuing long-term IV antibiotics and local bone debridement and possibly hyperbaric oxygen therapy. If this fails, then an amputation can always be performed, although I think this would have significant impact on his current lifestyle. The patient continues to be on IV Zosyn and will need long-term IV antibiotics. 2. Diabetic neuropathic ulceration, right foot, is showing signs of improvement. I recommended debriding the necrotic bone within the wound base as well as opening up the area around the ankle joint further to remove the unhealthy tissue. The patient is made n.p.o. and we will perform the procedure tomorrow at noon. Today, the nonviable and fibrotic tissue was sharply excised through skin edges through healthy subcutaneous tissue using a 15 blade. The area was copiously flushed with normal saline and the lateral border of the wound was packed using 1/4-inch Iodoform gauze. Although the tendons do not appear completely healthy, he is still able to dorsiflex his right foot which would be important for him to continue to be ambulatory, therefore, I will try to keep them intact if possible. The remaining dressing consisted of Hydrogel, 4 x 4 gauze, ABD, and Kerlix. The patient tolerated the procedure well and hemostasis was achieved with pressure.
[2017-01-15] VITALS (14 sets, daily range): BP systolic 113–179; BP diastolic 61–84; PULSE 70–120; RESP 14–25; O2SAT 89–99
[2017-01-15] MEDS: Sodium Chloride LOK Flush 10 mL Syringe IVFLUSH SCH ×4 (00:30→23:58)
[2017-01-15] MEDS: Piperacillin-Tazo 3.375 Gm Inj 3.375 GM in Dextrose 5% Minibag Plus 50 ML IV SCH ×3 (00:40→16:37)
--- NOTE | 2017-01-15 02:50 | NUR ---
Right foot dressing/Red groin On initial assessment, patients right foot dressing appears to have seropurulent drainage. Patient's groin area is red, dry, flaky on each side of the scrotum. Patient denies pain in regards to bilateral feet and groin . Patient is hypertensive. Denies any chest pain. Other vital signs stable. Patient is NPO for surgery scheduled at noon 01/15. Call light within reach. Care continues
[2017-01-15] MEDS: Insulin LISPRO 300 Unit/3 mL Inj SUBQ SCH ×7 (07:30→20:09)
[2017-01-15 07:53] LABS: BASOPHILS % (AUTO) 0.1 % (0-3); EOSINOPHILS % (AUTO) 1.7 % (0-5); MONOCYTES % (AUTO) 7.2 % (4-12); Mean Corpuscular Hemoglobin 29.5 pg (27.0-35.0); Mean Corpuscular Volume 93.4 fL (81-100); NEUTROPHILS % (AUTO) 76.7 % (40-74); Platelet Count 415 bil/L (150-400)
[2017-01-15 07:56] LABS: INR 1.1 ratio
--- NOTE | 2017-01-15 07:58 | PCM.PNMED ---
Subjective Date of Service Jan 15, 2017 Subjective No problems overnight. No sig pain. Blood sugars good. NPO now for right foot procedure today. Exam Vital Signs Vital Sign - Last Date Time Temp Pulse Resp B/P Pulse Ox O2 Delivery O2 Flow Rate FiO2 01/15/17 05:03 37.1 96 18 171/75 93 Room Air 01/12/17 14:31 2 Intake and Output 01/14/17 01/14/17 01/15/17 Cumulative From/Thru 15:00 23:00 07:00 01/03/17 11:59 - 01/15/17 06:08 Intake Total 1463 ml 428 ml 81915 ml Output Total 1300 ml 500 ml 85464 ml Balance 163 ml -72 ml 57733 ml Intake Oral 1213 ml 236 ml 10600 ml IV Total 250 ml 192 ml 49976 ml TPN/PPN 100 ml Output Urine Total 1300 ml 500 ml 38206 ml Estimated Blood Loss 30 ml # Voids 3 # Bowel Movements 4 Exam Skin; no rashes noted, dry Foot; right, bandaged, clean not removed CV; no murmur, regular Resp; clear anteriorly GI; soft, non acute, benign Neuro; CN 2-12 intact, no focal defects, distal peripheral neuropathy HENT; moist mucus membranes Lab and Diagnostics Result Diagram: 01/13/1752001/13/17520 Microbiology Laboratory Tests 72 Hours Test 01/06/17 19:59 01/07/17 03:10 01/08/17 03:00 01/09/17 02:55 Urine Color Yellow (YELLOW) Urine Appearance Hazy (CLEAR,HAZY) Urine pH 5.0 (5.0-8.0) Urine Specific Blairs 1.020 (1.003-1.035) Urine Protein 30mg/dL (NEG,TRACE) Urine Glucose (UA) Negativemg/dL (NEGATIVE) Urine Ketones Negativemg/dL (NEGATIVE) Urine Occult Blood Small (NEGATIVE) Urine Nitrite Negative (NEGATIVE) Urine Bilirubin Negative (NEGATIVE) Urine Urobilinogen Normalmg/dL (NORMAL) Urine Leukocyte Esterase Negative (NEGATIVE) Urine RBC 0-2/hpf (0-2) Urine WBC 0-5/hpf (0-5) Urine Epithelial Cells Occasional/hpf (NONE-MOD) Urine Crystals Amorphous urates (NONE Urine Bacteria None/hpf (NONE-FEW) Urine Hyaline Casts None/lpf (NONE) Urine Granular Casts None seen (NONE SEEN) Urine Waxy Casts None seen (NONE SEEN) Urine Red Blood Cell Casts None seen (NONE SEEN) Urine White Blood Cell Casts None seen (NONE SEEN) Urine Mucus None seen (None Seen) Urine Trichomonas None seen (NONE SEEN) Urine Yeast None (NONE SEEN) Urinalysis Comment None Urine Culture Reflexed Not indicated White Blood Count 10.0th/mm3 (3.8-10.1) 10.9th/mm3 (3.8-10.1) 9.6th/mm3 (3.8-10.1) Red Blood Count 3.44mil/mm3 (4.40-5.80) 3.50mil/mm3 (4.40-5.80) 3.28mil/mm3 (4.40-5.80) Hemoglobin 10.2g/dL (13.8-17.2) 10.4g/dL (13.8-17.2) 9.5g/dL (13.8-17.2) Hematocrit 31.7% (41.0-50.0) 31.8% (41.0-50.0) 29.7% (41.0-50.0) Mean Corpuscular Volume 92.2fL (81-100) 90.9fL (81-100) 90.5fL (81-100) Mean Corpuscular Hemoglobin 29.7pg (27.0-35.0) 29.7pg (27.0-35.0) 29.0pg (27.0-35.0) Mean Corpuscular Hemoglobin Concent 32.2% (32.0-37.0) 32.7% (32.0-37.0) 32.0% (32.0-37.0) Red Cell Distribution Width 15.3% (12.3-15.4) 14.9% (12.3-15.4) 14.9% (12.3-15.4) Platelet Count 208bil/L (150-400) 287bil/L (150-400) 312bil/L (150-400) Neutrophils (%) (Auto) 73.2% (40-74) 77.9% (40-74) 74.0% (40-74) Lymphocytes (%) (Auto) 11.4% (14-46) 9.2% (14-46) 12.4% (14-46) Monocytes (%) (Auto) 12.6% (4-12) 10.9% (4-12) 11.5% (4-12) Eosinophils (%) (Auto) 2.2% (0-5) 1.3% (0-5) 1.6% (0-5) Basophils (%) (Auto) 0.1% (0-3) 0.2% (0-3) 0.1% (0-3) Prothrombin Time 38.9sec (8.1-12.5) 38.7sec (8.1-12.5) 43.1sec (8.1-12.5) Prothromb Time International Ratio 3.54ratio 3.53ratio 3.92ratio Sodium Level 134mEq/L (134-144) 133mEq/L (134-144) 136mEq/L (134-144) Potassium Level 4.8mEq/L (3.5-5.2) 4.7mEq/L (3.5-5.2) 4.4mEq/L (3.5-5.2) Chloride Level 102mEq/L (97-108) 102mEq/L (97-108) 106mEq/L (97-108) Carbon Dioxide Level 19mmol/L (18-29) 18mmol/L (18-29) 19mmol/L (18-29) Blood Urea Nitrogen 53mg/dL (8-27) 50mg/dL (8-27) 52mg/dL (8-27) Creatinine 1.83mg/dL (0.76-1.27) 1.79mg/dL (0.76-1.27) 1.75mg/dL (0.76-1.27) Estimat Glomerular Filtration Rate 39mL/min (>59) 40mL/min (>59) 41mL/min (>59) Glucose Level 348mg/dL (60-99) 273mg/dL (60-99) 247mg/dL (60-99) Calcium Level 7.9mg/dL (8.5-10.1) 8.0mg/dL (8.5-10.1) 7.9mg/dL (8.5-10.1) Procalcitonin 3.58ng/mL (0.00-0.08) 3.22ng/mL (0.00-0.08) X-Rays, CTs and MRIs CT brain 1. No acute intracranial abnormalities. 2. Cerebral volume loss and chronic microvascular ischemic change Dictated by: Milton Bardales M.D. on 01/03/2017 at 12:54 Chest x-ray IMPRESSION: No acute cardiopulmonary disease. Dictated by: Milton Bardales M.D. on 01/03/2017 at 13:55 Venous duplex IMPRESSION: No deep venous thrombosis in the right lower extremity. Dictated by: Milton Bardales M.D. on 01/03/2017 at 12:40 01/04 PROCEDURE: X-RAY RIGHT FOOT COMPLETE, MINIMUM THREE VIEWS ([id number]) IMPRESSION: Worsening osteomyelitis involving the first metatarsal head with gas within the adjacent soft tissues as well as throughout the dorsal aspect of the soft tissues. Although the gas may be related to recent instrumentation, developing necrotizing fasciitis cannot be excluded and clinical correlation and followup is recommended. Dr. Key given results at 1108 hours on 01/05/2017. Dictated by: Sung Tejada [facility] Interpreted: Rhona Paige MD on 01/05/2017 at 10:56 01/05 PROCEDURE: X-RAY RIGHT FOOT COMPLETE, MINIMUM THREE VIEWS ([id number]) IMPRESSION: Interval postoperative changes of the right forefoot as described. No radiopaque foreign bodies. Dictated by: Ronal Galindo M.D. on 01/05/2017 at 15:58 01/06 PROCEDURE: US RENAL SONOGRAM 1. Left renal inferior exophytic cyst otherwise normal kidneys. 2. 707 cc prevoid urinary volume and postvoid residual cannot be assessed. Cardiac Echo Impressions Last echo 04/06/16 Interpretation Summary Left ventricular wall thickness is mild-moderately increased. Assessment of diastolic parameters indicates a relaxation abnormality of the left ventricle, consistent with normal filling pressures. The right ventricle is normal in size and function. Pulmonary artery pressures cannot be estimated because of the lack of a measurable TR jet velocity. Both atria are normal in size. There is no significant valvular heart disease. The aortic root is normal size. The aortic arch is normal in size. TTE 01/05/17 The study quality was technically difficult. A contrast injection of Definity was performed to improve assessment of LV function. Left ventricular ejection fraction is estimated to be 50%. Apical hypokinesis is suspected, LVEF is slightly lower on this exam. The right ventricle is normal size. Right ventricular systolic function is mildly reduced. The right ventricular systolic pressure is estimated at 25 mmHg assuming a right atrial pressure of 8 mm Hg. In an off axis view there is an echodensity along the superior aspect of the IAS, this could be an artifact. A VIR[place]IA can hlep elucidate this further, or a limited echo to re evaluate the RA may be requested. [place] 01/07/17 The left ventricular ejection fraction is grossly normal. The interatrial septum is intact with no evidence for an atrial septal defect. No evidence of endocarditis. No mass seen in RA, TTE finding was artifactual. Assessment & Plan 71-year-old male with recent amputation of his right big toe and insulin- dependent diabetes who presents after being found down, with hypoglycemia and increased erythema of the right lower extremity consistent with cellulitis. Right foot cellulitis/osteomyelitis, POA, active -serial cultures+MSSA. s/p 2nd digit amputation, serial debridement by Dr. Key -anticipate amputation per , with Orthopedic today -s/p Zosyn since 01/04/17 till 01/08/17, Ancef from 01/08/[address] Edwards Recommendation, continue to 02/14/17, switched back to zosyn as clinically worsened. Type 2 Diabetes with peripheral neuropathy, poa, active - diabetic foot ulcer, Nephropathy and no proliferative retinopathy; POA, A1c 8.9, Sepsis also likely contributed to poor control. - glucose in target with current regimen. - Lantus increased to 20AM, 30 at night,added 5 units lispro TIDAC + high dose nutritional scale lispro. - Hold Victoza sq Hypertension, poa, stable - controlled, increased Losartan 50 mg to 100mg, continue Amlodipine 10 mg daily , Lasix 20 mg daily, coreg 12.5mg qd-will consider bid if remains uncontrolled Altered mental status and Delirium, resolved Patient has decline in mental function after V[place]. Mentation seems to be declining as patient is unable to respond correctly where he is or what year it is. He also has been having slurred speech. It should be r e stated that prior to admission, patient had fallen and stated he did hit his head on this head board and had his head wedged in between. Head CT at that time showed no acute intracranial abnormalities. - DDx: Includes stroke secondary to hemorrhage, medication side effects of versed and also considering reduced clearance of versed due to poor kidney function, encephalitis. - Likely secondary to medication side effects, but given history, ordered stat CT head. - Head CT unremarkable. Will decrease pain medications, cluster nursing care, ask for frequent reorientation and make sure there is daylight in room during days. - In the afternoon of 01/09/17, evaluated patient and his mentation is back to baseline when I first saw him on 01/04/17. The AMS and delirium was likely medication related as patient was given fentanyl for pain, versed for [place], flexiril for spasms. This happened within a short time period on top of poor kidney function. Shortness of breath, resolved -Patient having increased coughing and shortness of breath 01/08/17. -Chest X-ray shows impression is Bibasilar atelectasis versus aspiration or pneumonia. - Patient has been noted to be aspirating per speech evaluation and should have supervised PO intake. - Patient currently on Ancef for osteomyelitis - Acapella and Incentive spirometry - Recheck CBC Acute on chronic kidney injury; present on admission; Resolved - Baseline Cr 1.3-1.7. Due to Hypertensive nephrosclerosis and Diabetic nephropathy - Renal ultrasound showed Pre-void bladder volume is 778 mL. - Patient has Milton as of 01/06/17. Improved BUN and Cr afterwards. - avoid nephrotoxic insults, monitor urine output - Fluids discontinued 01/08/17 Paroxysmal Atrial fibrillation on Coumadin; present on admission; stable - monitored on telemetry till 01/09/17. Patient out of A. fib for several days prior. - continue rate control with Carvedilol - Continue warfarin per pharmacy - Daily INR. Ordered 2 units FFP to reduce INR below 2 prior to I&D. Patient only recieved 1 unit. Held second unit after surgery on 01/05. - Consider adding Diltiazem drip if sustained elevated HR. Severe Sepsis - Resolved Secondary to RLE cellulitis and bacteremia found on admission. Patient on admission had leukocytosis of 24.3, tachycardia and tachypnea. Leukocytosis has been improving daily now down to 13.2. RLE very hot, erythematous and edematous , with fluctuant mass on base of RLE 1st digit. This has been improving throughout his admission with treatment initially on ancef and now on zosyn. Recent cultures in September show MSSA pansensitive. Nasal MRSA swab negative. Blood cultures have also been grown gram positive cocci likely to be staph aureus. - Patient no longer tachycardic or tachypneic. Leukocytosis is down to 12.3. - Appreciate Dr. Key consult and ID consult. - I/D done 01/[address] Key drained approximately 50 cc of pustular discharge. Patient had extensive debridement and amputation of right second toe in OR 01/05. - Discontinued Ancef 01/05/17 - Continued zosyn, start date 01/04/17. Will transition to Ancef + Flagyl 01/[address] Edwards recommendation. Plan is for treatment of antibiotics for 6 weeks for osteomyelitis. - TTE showed EF of 50%, apical hypokineseis and an echodensity along the superior aspect of the IAS, which could be an artifact. V[place] would help elucidate this further. Per conversation with caridiologist, differential includes myxoma, so will proceed with VIR[place]IA for 01/07. - Follow CBC, BMP -Repeat procalcitonin trended down as above Hyperlipidemia - continue Atorvastatin 40 mg daily Acquired hypothyroidism - continue Synthroid 75 mcg daily Hypoglycemia, due to noncompliance; present on admission; Resolved - Pt has been without his glucometer; when obtained reading was "very high" likely due to above infection - Patient overdosed on Lantus, taking 2-3 times more than prescribed - Continue to monitor glucose Mild troponin elevation; present on admission; Resolved -Likely due to acute kidney injury -Now wnl Anion gap metabolic acidosis with lactic acidosis; present on admission; Resolved -Anion gap improved from 20 to 12, lactic acid trended to 1.0. - IV fluids were used initially when patient had limited PO intake. Acetaminophen for mild pain when necessary. Bowel regimen Senna and MiraLAX scheduled and PRN. Zofran when necessary for nausea and vomiting. SubQ heparin held for now. SCDs in place. High-risk medications: Warfarin Disposition: pending given surgical course, will be discharged to SNF when medically stable. VTE Mechanical Devices: Intermittant Pneumatic CD Mynor Rousseau MD Jan 15, 2017 07:58
[2017-01-15 08:13] LABS: Magnesium 2.5 mg/dL (1.6-2.6)
[2017-01-15] MEDS: Lactated Ringer's 1,000 ML IV SCH ×3 (08:37→21:51)
--- NOTE | 2017-01-15 08:59 | NUR ---
NUTRITION FOLLOW-UP: ASSESS: 71 YO M admitted for hypoglycemia and multiple falls. He is being followed by podiatry. He is s/p 2nd ray amputation, excision of the 1st metatarsal head and extensive debridement of diabetic foot infection and abscess, right foot. He is NPO today for debridement of necrotic bone within the wound base and removal of unhealthy tissue. PO prior to NPO status has been good at 75-100% of meals. PMHX: DM, HTN, foot ulcer, CAD LABS: Reviewed. K 5.8, Bun 57, Frame Feeder 2.08, Ca 7.9, Alb 2.3 MEDS: Reviewed. Insulin, Coumadin, Lasix, Senna, Miralax. GI: BM x 1 (01/13) SKIN: dionte 19, podiatry following for foot wounds. Osteomyelitis/cellulitis of R foot. CURRENT WT: 106.6 kg, BMI 35.7 kg/m2, admit wt 98.2 kg, IBW 70 kg DIET: Soft, PO intake 75-100% ESTIMATED NEEDS: healing, BMI Calories: 4316-4121 kcal/day (22-25 kcal/kg BW) Protein: 85-105 g/day (1.2-1.5 g/kg IBW) NUTRITION DIAGNOSIS: 1.) Increased kcal/pro needs related to increased nutrient needs for healing as evidence by multiple foot wounds/surgery.-PERSISTS. NUTRITION INTERVENTION: 1.) Continue diet per ST 2.) Inpatient DM diet education provided 01/07- pt is already signed up for oupt DM education 3.) Continue vanilla Glucerna on L tray. MONITOR/EVALUATE: PO intake, wounds, labs, wt, POC, GI/nutrition status. Follow per moderate nutrition risk guidelines.
--- NOTE | 2017-01-15 09:40 | NUR ---
K+ Level K+ level 5.8 this morning per labs; made aware in rounds, awaiting orders.
[2017-01-15] MEDS ORDERED: Propofol 10,000 mCg/mL 20 mL Inj ONE (09:43)
[2017-01-15] MEDS ORDERED: Ondansetron 2 mg/mL 2 mL Inj ONE (09:43)
[2017-01-15] MEDS ORDERED: fentaNYL-PF 50 mCg/mL 2 mL Inj ONE (09:43)
[2017-01-15] MEDS: Insulin GLARgine 100 Unit/mL Syringe SUBQ SCH ×2 (09:51→21:00)
[2017-01-15] MEDS ORDERED: 0.9% Sodium Chloride 500 ML IV ONE (11:15)
--- NOTE | 2017-01-15 12:00 | NUR ---
K+ K+ 5.8 this morning and rectal Kayolexate given followed by enema; effective. Small pebble like BM in BSC before pt left to OR.
--- NOTE | 2017-01-15 12:59 | NUR ---
Pt to OR 1250 pt to OR; A&Ox3, up to BSC with small bowel movement prior to departure to OR. VSS, , RA, SPO2 mid 90's; BG 69, 25mls D50 given per protocol, 15min BG check will be done in OR at 1305pm per transporter. Report called and given to OR.
[2017-01-15] MEDS ORDERED: 0.9% Sodium Chloride 1,000 ML IV ONE (13:00)
--- NOTE | 2017-01-15 13:00 | PROG NOTE ---
[address] [address] PROGRESS NOTE PATIENT: DARA OLIVAS : 1945 MR#: [id number] ADMIT: 01/03/2017 JOB ID: [id number] DATE: 01/15/2017 REASON FOR FOLLOWUP: Severe diabetic foot infection. INTERVAL HISTORY: The patient reports she continues to feel very well. No fevers, chills, sweats, cough, GI or symptoms. He has no pain in his foot. The patient is scheduled for surgery at noon for additional foot debridement with plans to follow that with prolonged hyperbaric oxygen. PHYSICAL EXAMINATION: Reveals an afebrile gentleman, temp 37.2, pulse 120, respiratory rate 18, blood pressure 156/68. He is saturating well on 2 L. He is in no acute distress. Lungs are clear. Cardiac tones without new murmur. Abdomen benign. The foot is wrapped as it has been previously. LABORATORIES: Include a white count stable at 11,800, relatively normal diff. Creatinine 2.08 which is stable. LFTs are normal. Procalcitonin down to 0.66 which is declining from a peak of 19.2. Micro studies include the blood and foot cultures which grew MSSA. Followup blood cultures have been negative. IMPRESSION: The patient is headed for additional surgery today for additional debridement per Dr. Key. I have discussed this extensively by telephone with her this morning. Following this the patient will be prepared for discharge with plans to follow up in [facility] for hyperbaric oxygen as well as a long course of antibiotics. RECOMMENDATIONS: 1. Will continue with Zosyn at this time. 2. Following debridement today we can start to consider discharge planning with a prolonged course of intravenous antibiotics. 3. I will continue to follow this interesting patient with you.
[2017-01-15] MEDS ORDERED: Lactated Ringer's 500 ML IV PRN (13:08)
[2017-01-15] MEDS ORDERED: Lactated Ringer's 1,000 ML IV SCH (13:08)
--- NOTE | 2017-01-15 13:08 | PCM.HPANE ---
Patient Data Date of Service: Jan 15, 2017 Surgeon Admitting Provider:Luigi Arrieta MD Attending Provider:Mynor Rousseau MD Primary Care Physician:Karlee Kaplan MD Other Provider: Reason for Visit Hypoglycemia, Mult Falls, Rle Cellulitis Ht/WT & BMI Height (Feet): 5 Height (Inches): 8.00 Weight (Kilograms): 106.600 Body Mass Index 28.10 Allergies Coded Allergies: Pentazocine Lactate (Verified Allergy, Unknown, 09/09/15) vancomycin (Unverified Allergy, Unknown, Hives, 09/09/15) rash and blisters hydrocortisone (Verified Adverse Reaction, Unknown, leg swelling, 11/07/16) Past Anesthesia History Anesthesia History: Denies:: Abnormal Airway, Anesthesia Reactions (pt states he hard to wake up post anesthesia), Difficult Intubation, Fam Anesthesia Reaction, Fam Malignant Hypertherm, Malignant Hyperthermia Diabetes History Hx Diabetes?: Yes (insulin dependent) Type of Diabetes: Type II Glycemic Control: Insulin Dependent Current Bedside Blood Glucose: 69 MRSA MRSA: No Medications Blood Thinner: Aspirin, Coumadin Hypertension Medication: Yes Home Meds Incl Beta Anette: No Date Beta Anette Taken: Jan 05, 2017 Time Beta Anette Taken: 08:00 Active Scripts Hydrocodone-Acetaminophen 5-325 mg 1 Each Tablet1 Tablet PO Q4H PRN For Pain # 30 TABLET Ref 0 Prov:Camryn Kaufman DO 11/10/16 Spironolactone 25 Mg Jxivuk53.5 Mg PO DAILY #14 TABLET Ref 0 Prov:Camryn Kaufman DO 11/10/16 Polyethylene Glycol 3350 (Miralax)17 Gm Powd.pack17 Gm PO DAILY PRN For Constipation #14 Prov:Camryn Kaufman DO 11/10/16 Losartan Potassium (Cozaar)25 Mg Xwfrbt38 Mg PO DAILY #14 TABLET Prov:Camryn Kaufman DO 11/10/16 Cyclobenzaprine 10 Mg Llceya24 Mg PO TID PRN For Spasm #20 TABLET Prov:Camryn Kaufman DO 11/10/16 Reported Medications Liraglutide (Victoza 2-Vitaliy)0.6 Mg/0.1 Ml Pen.injctr1.2 Mg SUBQ DAILY #6 11/07/16 Warfarin Sodium 2.5 Mg Tablet5 Mg PO DAILY 30 Days Ref 0 11/07/16 Diclofenac Gel (Voltaren Gel)100 Gm Tube1 Applic TOPICAL DIRECTED PRN For Pain #1 TUBE 11/07/16 Cyanocobalamin (Vitamin B-12) (Vitamin B-12)1,000 Mcg Tab.subl1,000 Mcg SL DAILY 11/07/16 Insulin Glargine (Lantus U100 Insulin Vial)100 Unit/Ml Vial22 Unit SUBQ HS #1 VIAL Ref 0 11/07/16 Iron Amino Acid Chelate/B12/FA (Ferractiv Iron 27 mg Formula)1 Each Capsule2 Each PO DAILY 11/07/16 Cetirizine HCl (Zyrtec)10 Mg Konjasm71 Mg PO DAILY PRN allergies #30 CAPSULE Ref 0 07/17/15 Insulin Aspart (NovoLOG U100 Insulin Vial)100 U/Ml U5-14 Unit SUBQ TID #1 VIAL Ref 0 07/17/15 Meclizine (Bonine)25 Mg Tab.chew25 Mg PO DAILY 07/17/15 Furosemide (Lasix)40 Mg Duitbt65 Mg PO DAILY 30 Days Ref 0 07/17/15 Levothyroxine 75 Mcg Bxgpek75 Mcg PO DAILY Ref 0 07/17/15 Gabapentin 300 Mg Roovewx278 Mg PO QAM Ref 0 07/17/15 Multivitamin/Iron/Folic Acid (Century Tablet)1 Each Tablet1 Each PO DAILY 07/17/15 Carvedilol 12.5 Mg Cikshu35.5 Mg PO DAILY Ref 0 07/17/15 Atorvastatin (Lipitor)40 Mg Jcenzj85 Mg PO DAILY Ref 0 07/17/15 Amlodipine 10 Mg Ldatml42 Mg PO DAILY Ref 0 07/17/15 Allopurinol 300 Mg Cyqkrx917 Mg PO DAILY Ref 0 07/17/15 Insulin Glargine (Lantus U100 Insulin Vial)100 Unit/Ml Vial32 Unit SUBQ QAM #1 VIAL Ref 0 07/17/15 History History of ENT Problems?: Yes HEENT History: Positive for:: Cataracts (left eye cataract; right eye cataract removed) Sinus Problem (Seasonal grass allergies) Denies:: Abnormal Airway Difficult Intubation Dysphagia Denture Type: None Teeth Condition: Broken Teeth Missing Teeth Hx of Heart Problems?: Yes Cardiovascular History: Positive for:: Hypertension Irregular Heartbeat (remote history noted in a recovery post foot surgery,per patient) Denies:: Cardiac Surgery Chest Pain Congestive Heart Failure Edema Heart Murmur Pacemaker Thrombophlebitis Hx of Respiratory Problem?: No Respiratory History: Denies:: Asthma COPD Chest Surgery Dyspnea Emphysema Hemoptysis Oxygen Administration Pneumonia Tuberculosis Use of C-PAP Machine Hx Neurologic Problems?: Yes Neurological History: Positive for:: CVA (HX 3-4months ago had difficulty speaking - MRI small infarction - no [place]) Dizziness (more balance issues due to neuropathy and a weak Left Knee) Peripheral Neuropathy Denies:: Alzheimer's Disease Dementia Headaches Multiple Sclerosis Parkinson's Disease Seizures TIA Other Neurological Pertinent: hx TIA Hx of GI Problems?: Yes Hx of Problems?: No HX of Peritoneal Dialysis: No Skin History: Positive for:: History Skin Disorders? 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 Blood Transfuse Reaction Blood Transfusions Hx Diabetes: Yes (insulin dependent)Bedside Blood Glucose: 69 Hx Alcohol Use: NoHx Substance Use: No Smoking Status: Never Smoker Have You Smoked inLast 12 mo: No Stop/Bang Treated for Sleep Apnea?: No Do You Have a CPAP Machine?: No S-Snoring: Do You Snore Loudly: No T-Tired: feel tired, fatigued: No O-Obsered: Observed not breath: No P-Blood Pressure: treated: Yes B- Body Mass Index > 35 kg/m2: No A- Age over 50: Yes N- Neck Large Circumference: No G- Gender Male: Yes LUDA Total Score: 2 LUDA Risk Assessment: Low Risk, <3 Yes LUDA Category 1: Yes Risk Assessment Category Category 1A: Patient has history of documented sleep apnea, and HAS NOT received any narcotic, sedative or anesthesia administration during this stay. Category 1B: Patient has history of documented sleep apnea, and HAS received any narcotic , sedative or anesthesia administration during this stay Category 2: Patient has SUSPECTED Obstructive Sleep Apnea, and HAS received any narcotic , sedative or anesthesia administration during this stay. Category 3: Patient has SUSPECTED Obstructive Sleep Apnea and HAS NOT received narcotic, sedative or anesthesia administration during this stay. Category 4: Outpatient in Procedural Areas with known sleep apnea or who screen positive for High Risk via the STOP/BANG questionnaire. Low Risk, <3 Yes Exam Exam Vital Signs Vital Signs Date Time Temp Pulse Resp B/P Pulse Ox O2 Delivery O2 Flow Rate FiO2 01/15/17 12:40 36.7 70 18 135/72 93 Room Air 01/15/17 08:35 Supplement Oxygen 01/15/17 08:11 18 93 Nasal Cannula 2.00 01/15/17 08:09 37.2 120 18 156/68 89 Room Air General Appearance: Alert, Oriented X3, Cooperative, No Acute Distress HEENT/AIRWAY: MP 2 Lungs: Clear to Auscultation, Normal Air Movement Heart: Exam Unremarkable, Regular Rate/Rhythm, No Murmurs/Rubs/Gallops Meds/Labs/Diagnostics Admission Meds Current Medications Dextrose/Water (D50 Syringe) 50 ml STK-MED ONCE .ROUTE Last administered on 01/15t 12:56; Start 01/15/17 at 12:44; Stop 01/15/17 at 12:45; Status DC Bedside Blood Glucose: 69 Labs Test 01/03/17 18:15 01/04/17 00:52 01/04/17 03:05 01/05/17 18:00 Hemoglobin A1c 8.9% (4.8-5.6) Troponin T < 0.010ug/L (0.0-0.011) Lactic Acid Level 1.0mmol/L (0.4-2.0) Band Neutrophils % 2% (1-5) Hematology Comments Erythrocyte Sedimentation Rate > 140mm/hr (0-30) Test 01/06/17 19:59 01/13/17 05:21 01/15/17 04:48 Urine Color Yellow (YELLOW) Urine Appearance Hazy (CLEAR,HAZY) Urine pH 5.0 (5.0-8.0) Urine Specific Etters 1.020 (1.003-1.035) Urine Protein 30mg/dL (NEG,TRACE) Urine Glucose (UA) Negativemg/dL (NEGATIVE) Urine Ketones Negativemg/dL (NEGATIVE) Urine Occult Blood Small (NEGATIVE) Urine Nitrite Negative (NEGATIVE) Urine Bilirubin Negative (NEGATIVE) Urine Urobilinogen Normalmg/dL (NORMAL) Urine Leukocyte Esterase Negative (NEGATIVE) Urine RBC 0-2/hpf (0-2) Urine WBC 0-5/hpf (0-5) Urine Epithelial Cells Occasional/hpf (NONE-MOD) Urine Crystals Amorphous urates (NONE Urine Bacteria None/hpf (NONE-FEW) Urine Hyaline Casts None/lpf (NONE) Urine Granular Casts None seen (NONE SEEN) Urine Waxy Casts None seen (NONE SEEN) Urine Red Blood Cell Casts None seen (NONE SEEN) Urine White Blood Cell Casts None seen (NONE SEEN) Urine Mucus None seen (None Seen) Urine Trichomonas None seen (NONE SEEN) Urine Yeast None (NONE SEEN) Urinalysis Comment None Urine Culture Reflexed Not indicated Procalcitonin 0.66ng/mL (0.00-0.08) White Blood Count 11.8th/mm3 (3.8-10.1) Red Blood Count 3.05mil/mm3 (4.40-5.80) Hemoglobin 9.0g/dL (13.8-17.2) Hematocrit 28.5% (41.0-50.0) Mean Corpuscular Volume 93.4fL (81-100) Mean Corpuscular Hemoglobin 29.5pg (27.0-35.0) Mean Corpuscular Hemoglobin Concent 31.6% (32.0-37.0) Red Cell Distribution Width 15.0% (12.3-15.4) Platelet Count 415bil/L (150-400) Neutrophils (%) (Auto) 76.7% (40-74) Lymphocytes (%) (Auto) 14.0% (14-46) Monocytes (%) (Auto) 7.2% (4-12) Eosinophils (%) (Auto) 1.7% (0-5) Basophils (%) (Auto) 0.1% (0-3) Prothrombin Time 11.8sec (8.1-12.5) Prothromb Time International Ratio 1.10ratio Sodium Level 137mEq/L (134-144) Potassium Level 5.8mEq/L (3.5-5.2) Chloride Level 104mEq/L (97-108) Carbon Dioxide Level 20mmol/L (18-29) Blood Urea Nitrogen 57mg/dL (8-27) Creatinine 2.08mg/dL (0.76-1.27) Estimat Glomerular Filtration Rate 34mL/min (>59) Glucose Level 98mg/dL (60-99) Calcium Level 7.9mg/dL (8.5-10.1) Phosphorus Level 4.0mg/dL (2.5-4.9) Magnesium Level 2.5mg/dL (1.6-2.6) Total Bilirubin 0.2mg/dL (0.0-1.2) Aspartate Amino Transf (AST/SGOT) 16U/L (0-50) Alanine Aminotransferase (ALT/SGPT) 6U/L (0-44) Alkaline Phosphatase 64U/L (25-160) Total Protein 5.2g/dL (6.4-8.4) Albumin 2.3g/dL (3.4-5.0) Plan Impression Patient chart reviewed, patient interviewed and anesthestic plan with risks, benefits, and alternatives discussed, and informed consent obtained. NPO per Anesth. Guidelines: Yes ASA Physical Status: ASA3 Severe Disease (CVA) Anesthetic Plan: MAC Bene/Risks/Altern/Consents: Yes HP Complete Prior to Induction: Yes Stan Nieto MD Jan 15, 2017 13:07
[2017-01-15] MEDS ORDERED: Phenylephrine 10,000 mCg/mL Inj IVPUSH PRN (13:10)
[2017-01-15] MEDS ORDERED: fentaNYL-PF 50 mCg/mL 2 mL Inj IVPUSH PRN (13:10)
[2017-01-15] MEDS ORDERED: Atropine 0.4 mg/mL Inj IVPUSH PRN (13:10)
[2017-01-15] MEDS ORDERED: Labetalol 5 mg/mL 4 mL Inj IV PRN (13:10)
[2017-01-15] MEDS ORDERED: Ondansetron 2 mg/mL 2 mL Inj IVPUSH PRN (13:10)
[2017-01-15] MEDS ORDERED: EPHEDrine Sulfate 50 mg/mL Inj IVPUSH PRN (13:10)
[2017-01-15] MEDS ORDERED: HYDROmorphone 1 mg/mL Inj IVPUSH PRN (13:10)
[2017-01-15] MEDS ORDERED: Dexamethasone 4 mg/mL Inj IVPUSH PRN (13:10)
[2017-01-15] MEDS ORDERED: MetoCLOpramide 5 mg/mL 2 mL Inj IVPUSH PRN (13:10)
[2017-01-15] MEDS ORDERED: Lidocaine 1% 50 mL Inj INFILTRATE ONE (13:20)
[2017-01-15] MEDS ORDERED: Bupivacaine-MPF 0.5% 30 mL Inj INFILTRATE ONE (13:20)
--- NOTE | 2017-01-15 14:44 | PCM.PHAPRO ---
Progress Date of Service: Jan 15, 2017 Warfarin Management: -warfarin was held last evening in anticipation of surgical procedure today. -patient to OR today, anticipate restarting Warfarin tomorrow -Awaiting ok from md to restart JULIANE, PharmD Kylie GarciaD Jan 15, 2017 14:44
--- NOTE | 2017-01-15 14:51 | PCM.ANEP1 ---
Post Anesthesia PACU Phase 1 Assessment Date of Service: Jan 15, 2017 Vital Signs Vital Signs Date Time Temp Pulse Resp B/P Pulse Ox O2 Delivery O2 Flow Rate FiO2 01/15/17 12:40 36.7 70 18 135/72 93 Room Air 01/15/17 08:35 Supplement Oxygen 01/15/17 08:11 18 93 Nasal Cannula 2.00 01/15/17 08:09 37.2 120 18 156/68 89 Room Air Anesthetic Administered: MAC Level of Alertness: Awake, talking MICHELLE's with Equal Strength: Yes Pain: No Nausea or Vomiting: No CV Function & Hydration Stable: Yes Airway Device: Oxygen Delivery: Room Air Lungs: Clear to Auscultation, Normal Air Movement PACU Phase 2 Assessment Complications: No Follow up Care: N/A Patient Instructions Provided: N/A Stan Nieto MD Jan 15, 2017 14:51
--- NOTE | 2017-01-15 16:32 | DRSVH ---
PROCEDURE: X-RAY RIGHT FOOT COMPLETE, MINIMUM THREE VIEWS ([id number]) INDICATIONS: POST SURGERY ON RIGHT FOOT TECHNIQUE: 3 views of the foot were acquired. COMPARISON: 01/05/2017 FINDINGS: Bones: First and second metatarsals amputations show mild bony resorption at the end of the bony stum ps. Margins appear sharp or on the lateral projection. Soft tissues: Postoperative changes of the soft tissues show interval improvement with diminished swe lling and artifact. IMPRESSION: Expected postoperative changes with progression since last exam. Dictated by: Olman Sim M.D. on 01/15/2017 at 16:27 Approved by: Olman Sim M.D. on 01/15/2017 at 16:30
--- NOTE | 2017-01-15 17:32 | NUR ---
Wound Note Wound order received, 71 yo diabetic male s/p surgical debridement of right foot infection 01/15/17. Wound measures 19 cm in length and 7 cm in width and 3 cm in depth. There is tendon exposed and bone exposed in the wound bed, there is granulation tissue of 50% of the wound bed. The lateral border of the wound is undermined so white foam was placed in this space and over the bone and tendon, then black foam was placed overall and negative pressure was brought up to 125 mmhg continuous and a good seal was attained. Patient also presents with a 2 cm x 2 cm x 1 cm plantar ulcer at the head of the third metatarsal on the left, this was dressed with aquacell ag moist then covered with foam, vac drape, kerlix wrapped and natalie wrapped overall. Both of these dressings will be changed on Wednesday and Dr zuniga will visualize them at that time. Patient will need SNF on discharge for wound care (Wound VAC) and rehabilitation.
--- NOTE | 2017-01-15 19:26 | NUR ---
Back from PACU 1642 Pt returned from PACU, IV LR 120/hr started, VSS, pt has no c/o pain. Wound care came to apply wound vac and dressing to R foot. Pt sleeping quietly. BG 80 upon return to room. Pt more awake at dinner and hungry. Ate all of dinner, BG 109 after dinner, no sliding scale insulin coverage given. May want to consider reducing Lantus dose to be given in AM. Will continue to monitor with frequent rounds.
--- NOTE | 2017-01-15 22:39 | NUR ---
BG HS BG was 144; this is the highest it has been all day. BG ranging from mid 60s to 111 previously throughout shift. Per RN report, pt received total of 3x doses D10 d/t hypoglycemia. Cook page to re: HS BG and previous low sugars. Call back from Dr. Blankenship and stated okay to hold tonight's dose. Will resume lantus dose in AM as he as morning dose scheduled as well as sliding scale. Pt also aware of holding Lantus this evening, agreeable. Care continues.
[2017-01-16 00:18] VITALS: BP 169/75; PULSE 91; RESP 18; O2SAT 94
[2017-01-16] MEDS: Piperacillin-Tazo 3.375 Gm Inj 3.375 GM in Dextrose 5% Minibag Plus 50 ML IV SCH ×3 (00:24→18:30)
--- NOTE | 2017-01-16 03:30 | OP ---
[address] [address] OPERATIVE REPORT PATIENT: DARA OLIVAS : 1945 MR#: [id number] ADMIT: 01/03/2017 JOB ID: [id number] DATE OF SURGERY: 01/15/2017 SURGEON: Jeanne Key DPM. GRATING MACHINE OPERATOR: None. PREOPERATIVE DIAGNOSIS(ES): Infected right foot with osteomyelitis. POSTOPERATIVE DIAGNOSIS(ES): Infected right foot with osteomyelitis. PROCEDURE: Debridement of infected soft tissue and bone right foot. ANESTHESIA: With IV sedation and local anesthetic. TOURNIQUET: None. DESCRIPTION OF PROCEDURE: The patient is brought into the operating room and placed in supine position on the operating room table. After IV sedation was administered, 3 cc of a 1:1 mixture of Marcaine 0.5% plain and lidocaine 1% plain was infiltrated around the proximal end of the ulceration anterior to the ankle joint. The foot was then prepped in usual sterile technique. Anesthesia was tested for and found to be adequate. Using a curette, I debrided the nonviable and fibrotic tissue along the entire base of the ulceration. The ulceration measured approximately 17 cm x 10 cm. Attention was then directed to the lateral aspect of the mid foot area. Using a tissue nipper, I debrided the nonviable fibrotic tissue around the area of the tendon and also debrided the area of tendon which appeared yellow discolored and desiccated. Attention was then directed to the proximal margin of the wound. Using a 10 blade, I incised the skin proximally about 1.5 cm. This incision was deepened down to the extensor retinaculum using sharp and dull dissection and bovied used as necessary for hemostasis. It was noted that there was small amount of pustular discharge and the cut end of the extensor tendon was visible and appeared friable. I incised part of the extensor retinaculum and exposed the area of abnormal tendon as well as the surrounding friable soft tissue. Using a 10 blade, I applied tension to the tendon and using a 10 blade, I incised through and through the tendon and removed the abnormal portion. The surrounding nonviable fibrotic tissue was then excised using a tissue nipper. The area was then copiously flushed with normal saline. Using 3-0 Vicryl, I sutured the extensor retinaculum back together. Attention was then directed to the dorsal aspect of the medial intermediate cuneiform. It is noted that the bone was yellow, discolored and there was no granulation tissue overlying the bone. Using a rongeur, I debrided the cortex of the bone down to healthy bleeding bone. Attention was then directed to the second metatarsal base. Using an osteotome and mallet, I removed the yellow discolored hard bone down to bone which showed some small amount of bleeding. Attention was then directed to the distal aspect of the second metatarsal. I freed the granulation tissue away from the neck and distal shaft of the second metatarsal. Using a sagittal saw, I removed a section approximately 4 mm in length of bone. The remaining cut and the bone was inspected and it was noted that there was no bleeding. Using a rongeur, I removed some more bone and revealed that there was some bleeding more proximally. Using a sagittal saw, I again cut through the bone and removed approximately 3 mm of bone. It was noted that the cut end was bleeding a small amount. The area around the 2nd metatarsophalangeal joint was also used to remove any fibrotic and necrotic tissue within the area. It was noted that the extensor hallucis longus was also exposed within the wound base and that the tendon looks slightly yellow in appearance. Using a 10 blade, I removed some of the superficial layers of the tendon which was exposed within the wound base. The entire area was then copiously flushed with normal saline. The ulceration was redressed with Hydrogel and half-inch Iodoform packing, which was tucked along the lateral aspect of the wounds into the lateral mid foot area where the extensor tendons were present. The wound was then dressed using Hydrogel, 4 x 4 gauze, ABD and an Raymond wrap. The patient tolerated the procedure and anesthesia well. He left the operating room with vital signs stable, vascular status intact to all remaining toes of the right foot. The patient is to be transferred back to [facility] once he is medically stable.
[2017-01-16 05:30] VITALS: BP 171/76; PULSE 87; RESP 18; O2SAT 96
[2017-01-16 06:20] LABS: BASOPHILS % (AUTO) 0.2 % (0-3); EOSINOPHILS % (AUTO) 1.1 % (0-5); MONOCYTES % (AUTO) 6.4 % (4-12); Mean Corpuscular Hemoglobin 29.2 pg (27.0-35.0); NEUTROPHILS % (AUTO) 80.5 % (40-74); Platelet Count 405 bil/L (150-400)
--- NOTE | 2017-01-16 07:41 | PCM.PNMED ---
Subjective Date of Service Jan 16, 2017 Subjective Resting in bed. No problems with surgical procedure yesterday. Blood sugars bit low but did not eat that much last night. No other problems noted, except that K is still high. Exam Vital Signs Vital Sign - Last Date Time Temp Pulse Resp B/P Pulse Ox O2 Delivery O2 Flow Rate FiO2 01/16/17 05:30 37.1 87 18 171/76 96 Nasal Cannula 2.00 Intake and Output 01/15/17 01/15/17 01/16/17 Cumulative From/Thru 15:00 23:00 07:00 01/03/17 11:59 - 01/16/17 06:34 Intake Total 400 ml 1539 ml 1152 ml 31205 ml Output Total 1000 ml 550 ml 79064 ml Balance 400 ml 539 ml 602 ml 69220 ml Intake Oral 636 ml 518 ml 63300 ml IV Total 400 ml 903 ml 634 ml 41053 ml TPN/PPN 100 ml Output Urine Total 1000 ml 550 ml 14362 ml Estimated Blood Loss 30 ml # Voids 1 4 # Bowel Movements 1 5 Exam HENT; adequate hydration, no lesions Eyes; joseluis, eom intact Skin; war and dry, no rashes CV; no murmur, Resp; clear GI; soft, non tender Neuro; CN 2-12 intact, no focal deficits noted Lab and Diagnostics Result Diagram: 01/16/17 0539 01/16/17 0539 Microbiology Laboratory Tests 72 Hours Test 01/06/17 19:59 01/07/17 03:10 01/08/17 03:00 01/09/17 02:55 Urine Color Yellow (YELLOW) Urine Appearance Hazy (CLEAR,HAZY) Urine pH 5.0 (5.0-8.0) Urine Specific [place] 1.020 (1.003-1.035) Urine Protein 30mg/dL (NEG,TRACE) Urine Glucose (UA) Negativemg/dL (NEGATIVE) Urine Ketones Negativemg/dL (NEGATIVE) Urine Occult Blood Small (NEGATIVE) Urine Nitrite Negative (NEGATIVE) Urine Bilirubin Negative (NEGATIVE) Urine Urobilinogen Normalmg/dL (NORMAL) Urine Leukocyte Esterase Negative (NEGATIVE) Urine RBC 0-2/hpf (0-2) Urine WBC 0-5/hpf (0-5) Urine Epithelial Cells Occasional/hpf (NONE-MOD) Urine Crystals Amorphous urates (NONE Urine Bacteria None/hpf (NONE-FEW) Urine Hyaline Casts None/lpf (NONE) Urine Granular Casts None seen (NONE SEEN) Urine Waxy Casts None seen (NONE SEEN) Urine Red Blood Cell Casts None seen (NONE SEEN) Urine White Blood Cell Casts None seen (NONE SEEN) Urine Mucus None seen (None Seen) Urine Trichomonas None seen (NONE SEEN) Urine Yeast None (NONE SEEN) Urinalysis Comment None Urine Culture Reflexed Not indicated White Blood Count 10.0th/mm3 (3.8-10.1) 10.9th/mm3 (3.8-10.1) 9.6th/mm3 (3.8-10.1) Red Blood Count 3.44mil/mm3 (4.40-5.80) 3.50mil/mm3 (4.40-5.80) 3.28mil/mm3 (4.40-5.80) Hemoglobin 10.2g/dL (13.8-17.2) 10.4g/dL (13.8-17.2) 9.5g/dL (13.8-17.2) Hematocrit 31.7% (41.0-50.0) 31.8% (41.0-50.0) 29.7% (41.0-50.0) Mean Corpuscular Volume 92.2fL (81-100) 90.9fL (81-100) 90.5fL (81-100) Mean Corpuscular Hemoglobin 29.7pg (27.0-35.0) 29.7pg (27.0-35.0) 29.0pg (27.0-35.0) Mean Corpuscular Hemoglobin Concent 32.2% (32.0-37.0) 32.7% (32.0-37.0) 32.0% (32.0-37.0) Red Cell Distribution Width 15.3% (12.3-15.4) 14.9% (12.3-15.4) 14.9% (12.3-15.4) Platelet Count 208bil/L (150-400) 287bil/L (150-400) 312bil/L (150-400) Neutrophils (%) (Auto) 73.2% (40-74) 77.9% (40-74) 74.0% (40-74) Lymphocytes (%) (Auto) 11.4% (14-46) 9.2% (14-46) 12.4% (14-46) Monocytes (%) (Auto) 12.6% (4-12) 10.9% (4-12) 11.5% (4-12) Eosinophils (%) (Auto) 2.2% (0-5) 1.3% (0-5) 1.6% (0-5) Basophils (%) (Auto) 0.1% (0-3) 0.2% (0-3) 0.1% (0-3) Prothrombin Time 38.9sec (8.1-12.5) 38.7sec (8.1-12.5) 43.1sec (8.1-12.5) Prothromb Time International Ratio 3.54ratio 3.53ratio 3.92ratio Sodium Level 134mEq/L (134-144) 133mEq/L (134-144) 136mEq/L (134-144) Potassium Level 4.8mEq/L (3.5-5.2) 4.7mEq/L (3.5-5.2) 4.4mEq/L (3.5-5.2) Chloride Level 102mEq/L (97-108) 102mEq/L (97-108) 106mEq/L (97-108) Carbon Dioxide Level 19mmol/L (18-29) 18mmol/L (18-29) 19mmol/L (18-29) Blood Urea Nitrogen 53mg/dL (8-27) 50mg/dL (8-27) 52mg/dL (8-27) Creatinine 1.83mg/dL (0.76-1.27) 1.79mg/dL (0.76-1.27) 1.75mg/dL (0.76-1.27) Estimat Glomerular Filtration Rate 39mL/min (>59) 40mL/min (>59) 41mL/min (>59) Glucose Level 348mg/dL (60-99) 273mg/dL (60-99) 247mg/dL (60-99) Calcium Level 7.9mg/dL (8.5-10.1) 8.0mg/dL (8.5-10.1) 7.9mg/dL (8.5-10.1) Procalcitonin 3.58ng/mL (0.00-0.08) 3.22ng/mL (0.00-0.08) X-Rays, CTs and MRIs CT brain 1. No acute intracranial abnormalities. 2. Cerebral volume loss and chronic microvascular ischemic change Dictated by: Milton Bardales M.D. on 01/03/2017 at 12:54 Chest x-ray IMPRESSION: No acute cardiopulmonary disease. Dictated by: Milton Bardales M.D. on 01/03/2017 at 13:55 Venous duplex IMPRESSION: No deep venous thrombosis in the right lower extremity. Dictated by: Milton Bardales M.D. on 01/03/2017 at 12:40 01/04 PROCEDURE: X-RAY RIGHT FOOT COMPLETE, MINIMUM THREE VIEWS ([id number]) IMPRESSION: Worsening osteomyelitis involving the first metatarsal head with gas within the adjacent soft tissues as well as throughout the dorsal aspect of the soft tissues. Although the gas may be related to recent instrumentation, developing necrotizing fasciitis cannot be excluded and clinical correlation and followup is recommended. Dr. Key given results at 1108 hours on 01/05/2017. Dictated by: Sung VELAZCO Interpreted: Rhona Paige MD on 01/05/2017 at 10:56 01/05 PROCEDURE: X-RAY RIGHT FOOT COMPLETE, MINIMUM THREE VIEWS ([id number]) IMPRESSION: Interval postoperative changes of the right forefoot as described. No radiopaque foreign bodies. Dictated by: Ronal Galindo M.D. on 01/05/2017 at 15:58 01/06 PROCEDURE: US RENAL SONOGRAM 1. Left renal inferior exophytic cyst otherwise normal kidneys. 2. 707 cc prevoid urinary volume and postvoid residual cannot be assessed. Cardiac Echo Impressions Last echo 04/06/16 Interpretation Summary Left ventricular wall thickness is mild-moderately increased. Assessment of diastolic parameters indicates a relaxation abnormality of the left ventricle, consistent with normal filling pressures. The right ventricle is normal in size and function. Pulmonary artery pressures cannot be estimated because of the lack of a measurable TR jet velocity. Both atria are normal in size. There is no significant valvular heart disease. The aortic root is normal size. The aortic arch is normal in size. TTE 01/05/17 The study quality was technically difficult. A contrast injection of Definity was performed to improve assessment of LV function. Left ventricular ejection fraction is estimated to be 50%. Apical hypokinesis is suspected, LVEF is slightly lower on this exam. The right ventricle is normal size. Right ventricular systolic function is mildly reduced. The right ventricular systolic pressure is estimated at 25 mmHg assuming a right atrial pressure of 8 mm Hg. In an off axis view there is an echodensity along the superior aspect of the IAS, this could be an artifact. A VIRGINIA can hlep elucidate this further, or a limited echo to re evaluate the RA may be requested. VIRGINIA 01/07/17 The left ventricular ejection fraction is grossly normal. The interatrial septum is intact with no evidence for an atrial septal defect. No evidence of endocarditis. No mass seen in RA, TTE finding was artifactual. Assessment & Plan 71-year-old male with recent amputation of his right big toe and insulin- dependent diabetes who presents after being found down, with hypoglycemia and increased erythema of the right lower extremity consistent with cellulitis. Right foot cellulitis/osteomyelitis, POA, active -serial cultures+MSSA. s/p 2nd digit amputation, serial debridement by Dr. Key -debridment of infected soft tissue and bone, right foot, 01/15/17 -s/p Zosyn since 01/04/17 till 01/08/17, Ancef from 01/08/[address] Edwards Recommendation, continue to 02/14/17, switched back to zosyn as clinically worsened. Type 2 Diabetes with peripheral neuropathy, poa, active - diabetic foot ulcer, Nephropathy and no proliferative retinopathy; POA, A1c 8.9, - glucose in target with current regimen. - Lantus increased to 20AM, 30 at night,added 5 units lispro TIDAC + high dose nutritional scale lispro. - Hold Victoza sq Hypertension, poa, stable -discontinued Losartan and spironolactone due to hyperkalemia, -continue Amlodipine 10 mg daily, Lasix 20 mg daily, -increase coreg from 12.5 mg daily to 12.5 bid -as K corrected consider restarting the cozaar Altered mental status and Delirium, resolved Patient has decline in mental function after VIRGINIA. Mentation seems to be declining as patient is unable to respond correctly where he is or what year it is. He also has been having slurred speech. It should be r e stated that prior to admission, patient had fallen and stated he did hit his head on this head board and had his head wedged in between. Head CT at that time showed no acute intracranial abnormalities. - DDx: Includes stroke secondary to hemorrhage, medication side effects of versed and also considering reduced clearance of versed due to poor kidney function, encephalitis. - Likely secondary to medication side effects, but given history, ordered stat CT head. - Head CT unremarkable. Will decrease pain medications, cluster nursing care, ask for frequent reorientation and make sure there is daylight in room during days. - In the afternoon of 01/09/17, evaluated patient and his mentation is back to baseline when I first saw him on 01/04/17. The AMS and delirium was likely medication related as patient was given fentanyl for pain, versed for V[place]IA, flexiril for spasms. This happened within a short time period on top of poor kidney function. Shortness of breath, resolved -Patient having increased coughing and shortness of breath 01/08/17. -Chest X-ray shows impression is Bibasilar atelectasis versus aspiration or pneumonia. - Patient has been noted to be aspirating per speech evaluation and should have supervised PO intake. - Patient currently on Ancef for osteomyelitis - Acapella and Incentive spirometry - Recheck CBC Acute on chronic kidney injury; present on admission; Resolved - Baseline Cr 1.3-1.7. Due to Hypertensive nephrosclerosis and Diabetic nephropathy - Renal ultrasound showed Pre-void bladder volume is 778 mL. - Patient has Milton as of 01/06/17. Improved BUN and Cr afterwards. - avoid nephrotoxic insults, monitor urine output - Fluids discontinued 01/08/17 Paroxysmal Atrial fibrillation on Coumadin; present on admission; stable - monitored on telemetry till 01/09/17. Patient out of A. fib for several days prior. - continue rate control with Carvedilol - Continue warfarin per pharmacy - Daily INR. Ordered 2 units FFP to reduce INR below 2 prior to I&D. Patient only recieved 1 unit. Held second unit after surgery on 01/05. Severe Sepsis - Resolved Secondary to RLE cellulitis and bacteremia found on admission. Patient on admission had leukocytosis of 24.3, tachycardia and tachypnea. Leukocytosis has been improving daily now down to 13.2. RLE very hot, erythematous and edematous , with fluctuant mass on base of RLE 1st digit. This has been improving throughout his admission with treatment initially on ancef and now on zosyn. Recent cultures in September show MSSA pansensitive. Nasal MRSA swab negative. Blood cultures have also been grown gram positive cocci likely to be staph aureus. - Patient no longer tachycardic or tachypneic. Leukocytosis is down to 12.3. - Appreciate Dr. Key consult and ID consult. - I/D done 01/[address] Key drained approximately 50 cc of pustular discharge. Patient had extensive debridement and amputation of right second toe in OR 01/05. - Discontinued Ancef 01/05/17 - Continued zosyn, start date 01/04/17. Will transition to Ancef + Flagyl 01/[address] Edwards recommendation. Plan is for treatment of antibiotics for 6 weeks for osteomyelitis. - TTE showed EF of 50%, apical hypokineseis and an echodensity along the superior aspect of the IAS, which could be an artifact. VIRGINIA would help elucidate this further. Per conversation with caridiologist, differential includes myxoma, so will proceed with VIRGINIA for 01/07. - Follow CBC, BMP -Repeat procalcitonin trended down as above Hyperlipidemia - continue Atorvastatin 40 mg daily Acquired hypothyroidism - continue Synthroid 75 mcg daily Hypoglycemia, due to noncompliance; present on admission; Resolved - Pt has been without his glucometer; when obtained reading was "very high" likely due to above infection - Patient overdosed on Lantus, taking 2-3 times more than prescribed - Continue to monitor glucose Mild troponin elevation; present on admission; Resolved -Likely due to acute kidney injury -Now wnl Anion gap metabolic acidosis with lactic acidosis; present on admission; Resolved -Anion gap improved from 20 to 12, lactic acid trended to 1.0. - IV fluids were used initially when patient had limited PO intake. Acetaminophen for mild pain when necessary. Bowel regimen Senna and MiraLAX scheduled and PRN. Zofran when necessary for nausea and vomiting. SubQ heparin held for now. SCDs in place. High-risk medications: Warfarin Disposition: pending given surgical course, will be discharged to SNF when medically stable. VTE Mechanical Devices: Intermittant Pneumatic CD Mynor Rousseau MD Jan 16, 2017 07:41
[2017-01-16] MEDS: Lactated Ringer's 1,000 ML IV SCH ×2 (07:55→13:35)
[2017-01-16] MEDS: Insulin LISPRO 300 Unit/3 mL Inj SUBQ SCH ×7 (08:00→21:36)
[2017-01-16] MEDS: Sodium Chloride LOK Flush 10 mL Syringe IVFLUSH SCH ×2 (08:30→16:30)
[2017-01-16 09:02] VITALS: BP 179/81; PULSE 89
[2017-01-16 09:05] LABS: INR 1.08 ratio
[2017-01-16 10:28] VITALS: BP 150/83; PULSE 83; RESP 20; O2SAT 95
--- NOTE | 2017-01-16 12:32 | PROG NOTE ---
[address] [address] PROGRESS NOTE PATIENT: DARA OLIVAS : 1945 MR#: [id number] ADMIT: 01/03/2017 JOB ID: [id number] DATE: 01/16/2017 SUBJECTIVE: The patient is seen for infected ulcer, right foot. He is somnolent today but does awaken when he is aroused. He denies any pain in his foot, fever or chills. PHYSICAL EXAMINATION: Blood pressure 150/83, pulse 83, respirations 20, temperature 36.9, pulse oximetry 95% via nasal cannula at 2 L/minute. The patient is noted to be sitting in a chair with his foot in a dependent position. Wound VAC is in place and there is approximately 50 cc of serosanguineous fluid within the canister. The effluent which is noted to be coming through the tubing is a small amount of serosanguineous fluid and there is no pustular discharge noted. The dorsal aspect of his right foot has black foam which is currently under a tight vacuum seal. There is mild swelling of the right foot diffusely. I am unable to determine the color due to the Betadine on the skin as well as the drape. His right lower leg however appears to be erythematous and mildly swollen. Neurovascular status intact to the remaining toes of the right foot. LABORATORY DATA: WBC 12.3, hemoglobin 8.7, hematocrit 28, neutrophils 80.5. Sodium 139, potassium 6.1, chloride 105, carbon dioxide 20, BUN 49, creatinine 1.97. Estimated GFR 36. Glucose 106. PT 11.6, INR 1.08. ASSESSMENT AND PLAN: Cellulitis with osteomyelitis, right foot. There is some erythema and swelling noted along his right gonzalez; however this may be postsurgical inflammation as he had just had a surgical debridement yesterday. His white count, however, is elevated today. I do not see any signs of pustular drainage within the wound VAC. The wound yesterday after debridement was relatively clean. I will keep the wound VAC dressing in place for today, and if his white count and erythema and swelling continue to increase on his leg, I will remove the wound VAC tomorrow and re-evaluate the wound. In the meantime, he will also continue with the Zosyn.
--- NOTE | 2017-01-16 13:00 | PCM.PHAPRO ---
Progress Date of Service: Jan 16, 2017 WARFARIN MANAGEMENT A\ 71 yo M history of AFIB Home Warfarin 5mg po daily Goal INR 2-3 Current INR =1.08 warfarin had been held for 4 days before surgery. Pt had surgical debridement of soft tissue and bone of right foot 01/15 No bleeding reported by RN P\ Warfarin 5mg PO x1 tonight and monitor daily INR. Billy Hutson [facility] Jan 16, 2017 13:00
[2017-01-16 15:19] VITALS: BP 157/81; PULSE 79; RESP 20; O2SAT 96
--- NOTE | 2017-01-16 16:26 | NUR ---
Social Xpuq-Qifwp-Slefzzkocwaj Rounds Podiatry and ID continue to follow. Anticipated that pt will need Zosyn through 02/14. [facility]ed to [facility]. [facility] updated regarding pt. YINA Iverson
[2017-01-16] MEDS ORDERED: Furosemide 10 mg/mL 2 mL Inj IV ONE (19:10)
--- NOTE | 2017-01-16 19:28 | NUR ---
activity Patient up to chair with 1 person assist, heel touch only on right foot. Patient denied pain and nausea this shift. Patient repositioned every 2 hours. Call light and tray table within reach. Will continue to monitor patient hourly.
[2017-01-16 20:36] VITALS: BP 160/71; PULSE 86; RESP 22; O2SAT 97
[2017-01-16] MEDS: Insulin GLARgine 100 Unit/mL Syringe SUBQ SCH (21:36)
[2017-01-17] MEDS: Sodium Chloride LOK Flush 10 mL Syringe IVFLUSH SCH ×3 (00:55→17:53)
[2017-01-17] MEDS: Piperacillin-Tazo 3.375 Gm Inj 3.375 GM in Dextrose 5% Minibag Plus 50 ML IV SCH ×3 (00:56→17:53)
[2017-01-17 03:58] VITALS: BP 161/74; PULSE 79; RESP 22; O2SAT 97
[2017-01-17 05:41] LABS: INR 1.11 ratio
--- NOTE | 2017-01-17 07:56 | NUR ---
Blood Glucose BG was increased after lower Lantus dose. 298 at bedtime, coverage given. 180 at 0300. Gave report to day shift to evaluate Lantus dosage at morning rounds. No s/sx of hyperglycemia during shift. Frequent checks on patient, no complaints of pain/nausea. call light within reach, repositioning and brief changes throughout night.
[2017-01-17] MEDS: Insulin LISPRO 300 Unit/3 mL Inj SUBQ SCH ×7 (08:00→21:01)
[2017-01-17] MEDS: Insulin GLARgine 100 Unit/mL Syringe SUBQ SCH ×2 (09:21→21:01)
--- NOTE | 2017-01-17 11:27 | PCM.PHAPRO ---
Progress Date of Service: Jan 17, 2017 WARFARIN MANAGEMENT A\ 71yo M history of AFIB s/p surgical debridement of right foot Home dose Warfarin 5mg PO daily Goal INR=2-3 Current INR=1.11 Warfarin restarted yesterday after being on hold for 4 days. P\ Will continue home dose of Warfarin 5mg PO x1 tonight and monitor daily INRs Billy Hutson [facility] Jan 17, 2017 11:27
[2017-01-17 13:10] VITALS: BP 137/75; PULSE 122; RESP 20; O2SAT 97
--- NOTE | 2017-01-17 15:20 | NUR ---
Social Work- Multi- Disciplinary Rounds/Continued D/C Planning Data: EMR reviewed. Pt is on day 14 of hospitalization. Per multi-disciplinary rounds ID is following pt. Podiatry is following pt. Podiatry may remove pt's wound vac. PT is recommending daily PT at SNF for 4 weeks. Pt will require IV abx at SNF. T/C to [facility] who is following pt. [facility] accepted pt pending insurance authorization and review of final abx recommendations. LOURDES will continue to update [facility]. [facility] also has access. LOURDES met with pt at bedside regarding discharge plan. Pt continues to be agreeable that [facility] is the necessary discharge plan. All updated and agreeable to plan. Paperwork in chart. PASRR in folder. Assessment: Pt for whom SNF is medically necessary Plan: [facility] pt pending insurance authorization and review of final abx recommendations. LOURDES will continue to update [facility]. Paperwork in chart. PASRR in folder. Pt is agreeable to plan. SW will continue to follow. Kate Hunt MSW
--- NOTE | 2017-01-17 18:10 | PROG NOTE ---
[address] [address] PROGRESS NOTE PATIENT: DARA OLIVAS : 1945 MR#: [id number] ADMIT: 01/03/2017 JOB ID: [id number] DATE: 01/17/2017 SUBJECTIVE: The patient is seen for infected ulcer, right foot. He is more alert today and appears to be oriented. He denies any pain in his foot, fever, or chills. PHYSICAL EXAMINATION: Blood pressure 137/75, pulse 122, respiratory rate 20, temperature 36.6, pulse oximetry 97% via nasal cannula at 2.5 L/minute. Lower extremity exam: Wound VAC is in place and functioning well. There is 150 mL of serosanguineous fluid in the canister. There is no pustular discharge noted. There is decreased erythema and swelling around the lower leg and foot. Neurovascular status intact to all remaining toes of the right foot. LABORATORY DATA: Sodium 139, potassium 5.7, chloride 105, carbon dioxide 23, BUN 50, creatinine 2.10, estimated GFR 33, glucose 155, calcium 8.2. TSH 6.140. PT 11.9, INR 1.11. ASSESSMENT AND PLAN: 1. Cellulitis with osteomyelitis right foot. The erythema and swelling which was present in his lower leg is decreased today and is normal in color, although the patient today is in bed with his foot slightly below his heart. I did not see any pustular drainage in the VAC. I will remove the wound VAC tomorrow and if the wound does not show any signs of acute infection the patient can be discharged to a retirement facility. 2. Diabetic neuropathic ulceration right foot. I did not remove the wound VAC today, however the plan is to change the wound VAC tomorrow and assess the wound. Hopefully the VAC will help build up granulation tissue over the viable bone which was present after debriding the necrotic bone within the wound base on Wednesday. The patient can be discharged to a retirement facility and is to follow up with Dr. Key at the [facility] within one week of discharge.
--- NOTE | 2017-01-17 19:42 | PCM.PNMED ---
Subjective Date of Service Jan 17, 2017 Subjective The patient has no new complaints. He feels no better and he feels no worse. He has no new fevers, chills or diaphoresis. Exam Vital Signs Vital Sign - Last Date Time Temp Pulse Resp B/P Pulse Ox O2 Delivery O2 Flow Rate FiO2 01/17/17 13:10 36.6 122 20 137/75 97 Nasal Cannula 2.50 Intake and Output 01/16/17 01/16/17 01/17/17 Cumulative From/Thru 15:00 23:00 07:00 01/03/17 11:59 - 01/17/17 05:31 Intake Total 2078 ml 100 ml 36381 ml Output Total 1000 ml 20638 ml Balance 1078 ml 100 ml 62678 ml Intake Oral 836 ml 100 ml 80583 ml IV Total 1242 ml 97699 ml TPN/PPN 100 ml Output Urine Total 1000 ml 34791 ml Estimated Blood Loss 30 ml # Voids 2 2 8 # Bowel Movements 1 1 7 Exam General: Patient is an no apparent distress at this time. He is laying supine in bed. HEENT: Head is atraumatic and normocephalic. Eyes: Pupils are equally round and reactive to light and accommodation. Extraocular muscles are intact. Sclera are white, anicteric. Subconjunctival mucosa is pink. Ears and nose are unremarkable. Oropharynx: There is no mucosal lesions, there is no thrush, there is no pharyngitis. Neck: Is supple, there are no nodes, or masses or tenderness. Chest: Is clear to auscultation and percussion. There are no rales, rhonchi, wheezes or rubs. Heart: Rate, rhythm is regular. There is no murmur, rub or gallop. Abdomen: Good bowel sounds are present. Abdomen is soft, nontender, no organomegaly or masses were appreciated. Extremities: The right foot is in a postoperative wrap with a wound VAC in place. There is minimal to no surrounding cellulitis. Neurologic: There are no focal neurological deficits. Cranial nerves II through XII are intact. There are no sensory or motor deficits. Psychiatric: Patients mood is calm and shows no sign of agitation. Genital: Deferred Rectal: Deferred Lab and Diagnostics Result Diagram: 01/16/17 0539 01/17/17 0450 Microbiology Specimen: [id number] Collected: 01/03/17 Status: CATRACHITO Req#: [id number] Received: 01/03/17 Source: BLOOD Sp Desc : KYELR Nichols Dr: Nader Gordon MD Ordered: Comments: Collected by Nurse/Unit? Y/N N Procedure Result Verified Site Microbiology JAYDE CULTURE BLOOD Final 01/06/17-0700 Organism 1 STAPHYLOCOCCUS AUREUS GRAM STAIN RESULT GRAM POSITIVE COCCI ?STAPH BC BOTTLE Isolated from Aerobic Bottle of Set Drawn DATE CALLED: 01/04/17 TIME CALLED: 0631 CALLED BY: SIA FLOOR/DOCTOR: WAQAS Gipson BC READ BACK Y TYPE OF DRAW NURSE COLLLECT TYPE NOT SPECIFIED TIME OF POSITIVITY 0600 GRAM STAIN RESULT GRAM POSITIVE COCCI ?STAPH BC BOTTLE2 Isolated from Anaerobic Bottle of Set Drawn DATE CALLED: 01/04/17 TIME CALLED: 1112 CALLED BY: SIA FLOOR/DOCTOR: BHANU Yarbrough BC READ BACK Y TYPE OF DRAW NURSE COLLECT TYPE NOT INDICATED TIME OF POSITIVITY 1050 STAPHYLOCOCCUS AUREUS Oxacillin Susceptible Penicillin Resistant Staph spp. are Susceptible to Penicillin stable penicillins, Blactam/Blactamase inhibitor combinations, antistaphyloccal cephems, and carbapenems. ISOLATED FROM FOUR OF FOUR BOTTLES COLLECTED 01/03/17. 1. STAPHYLOCOCCUS AUREUS M.I.C Interp --------- ------ * CEFAZOLIN S * CLINDAMYCIN <=0.25 S * ERYTHROMYCIN <=0.25 S CONTINUED ON NEXT PAGE RUN DATE: 01/06/17 [facility] LAB LIVE PAGE 2 RUN TIME: 699 Specimen Inquiry PHYSICIAN Patient: BRENDONDARA [id number] (Continued) Specimen: [id number] Collected: 01/03/17-1 Received: 01/03/17-124 (Continued) Procedure Result Verified Site JAYDE CULTURE BLOOD Final (continued) 01/06/17-07 1. STAPHYLOCOCCUS AUREUS (continued) Sharri Drake --------- ------ * LINEZOLID 2 S * MOXIFLOXACIN <=0.25 S * OXACILLIN JAYDE 0.5 S * RIFAMPIN <=0.5 S * TETRACYCLINE <=1 S * TRIMETHOPRIM/SULFAMETHOXAZOLE <=10 S * VANCOMYCIN <=0.5 S Name: DARA OLIVAS Age/Sex: 71/M Attend Dr: Luigi Arrieta MD Acct: [id number] Unit: [id number] Status: ADM IN Location: [facility] [place] 1008-1 Re01/03/17 Disch: Specimen: [id number] Collected: 01/05/17 Status: COMP Req#: [id number] Received: 01/05/17 Source: FOOT Sp Desc : Subm Dr: Jeanne Key DPM Ordered: CS & ANAC & GS Comments: Collected by Nurse/Unit? Y/N Y Comment: RIGHT FOOT, DEEP CULTURE Procedure Result Verified Site Microbiology JAYDE GS (GRAM STAIN) Final 01/05/17 GRAM STAIN RESULT NO POLYS SEEN FEW GRAM POS COCCI JAYDE CULT AEROBIC Final 01/12/17 Organism 1 STAPHYLOCOCCUS AUREUS COLONY COUNT/QUANTITY HEAVY GROWTH Oxacillin Susceptible Penicillin Resistant Staph spp. are Susceptible to Penicillin stable penicillins, Blactam/Blactamase inhibitor combinations, antistaphyloccal cephems, and carbapenems. 1. STAPHYLOCOCCUS AUREUS M.I.C Interp --------- ------ * CEFAZOLIN S * CLINDAMYCIN <=0.25 S * ERYTHROMYCIN <=0.25 S * LINEZOLID 2 S * MOXIFLOXACIN <=0.25 S * OXACILLIN JAYDE 0.5 S * RIFAMPIN <=0.5 S * TETRACYCLINE <=1 S * TRIMETHOPRIM/SULFAMETHOXAZOLE <=10 S * VANCOMYCIN <=0.5 S ANAEROBIC CULTURE Final 01/12/17 No anaerobes isolated Laboratory Tests 72 Hours Test 01/06/17 19:59 01/07/17 03:10 6/30/17 03:00 01/09/17 02:55 Urine Color Yellow (YELLOW) Urine Appearance Hazy (CLEAR,HAZY) Urine pH 5.0 (5.0-8.0) Urine Specific Tyner 1.020 (1.003-1.035) Urine Protein 30mg/dL (NEG,TRACE) Urine Glucose (UA) Negativemg/dL (NEGATIVE) Urine Ketones Negativemg/dL (NEGATIVE) Urine Occult Blood Small (NEGATIVE) Urine Nitrite Negative (NEGATIVE) Urine Bilirubin Negative (NEGATIVE) Urine Urobilinogen Normalmg/dL (NORMAL) Urine Leukocyte Esterase Negative (NEGATIVE) Urine RBC 0-2/hpf (0-2) Urine WBC 0-5/hpf (0-5) Urine Epithelial Cells Occasional/hpf (NONE-MOD) Urine Crystals Amorphous urates (NONE Urine Bacteria None/hpf (NONE-FEW) Urine Hyaline Casts None/lpf (NONE) Urine Granular Casts None seen (NONE SEEN) Urine Waxy Casts None seen (NONE SEEN) Urine Red Blood Cell Casts None seen (NONE SEEN) Urine White Blood Cell Casts None seen (NONE SEEN) Urine Mucus None seen (None Seen) Urine Trichomonas None seen (NONE SEEN) Urine Yeast None (NONE SEEN) Urinalysis Comment None Urine Culture Reflexed Not indicated White Blood Count 10.0th/mm3 (3.8-10.1) 10.9th/mm3 (3.8-10.1) 9.6th/mm3 (3.8-10.1) Red Blood Count 3.44mil/mm3 (4.40-5.80) 3.50mil/mm3 (4.40-5.80) 3.28mil/mm3 (4.40-5.80) Hemoglobin 10.2g/dL (13.8-17.2) 10.4g/dL (13.8-17.2) 9.5g/dL (13.8-17.2) Hematocrit 31.7% (41.0-50.0) 31.8% (41.0-50.0) 29.7% (41.0-50.0) Mean Corpuscular Volume 92.2fL (81-100) 90.9fL (81-100) 90.5fL (81-100) Mean Corpuscular Hemoglobin 29.7pg (27.0-35.0) 29.7pg (27.0-35.0) 29.0pg (27.0-35.0) Mean Corpuscular Hemoglobin Concent 32.2% (32.0-37.0) 32.7% (32.0-37.0) 32.0% (32.0-37.0) Red Cell Distribution Width 15.3% (12.3-15.4) 14.9% (12.3-15.4) 14.9% (12.3-15.4) Platelet Count 208bil/L (150-400) 287bil/L (150-400) 312bil/L (150-400) Neutrophils (%) (Auto) 73.2% (40-74) 77.9% (40-74) 74.0% (40-74) Lymphocytes (%) (Auto) 11.4% (14-46) 9.2% (14-46) 12.4% (14-46) Monocytes (%) (Auto) 12.6% (4-12) 10.9% (4-12) 11.5% (4-12) Eosinophils (%) (Auto) 2.2% (0-5) 1.3% (0-5) 1.6% (0-5) Basophils (%) (Auto) 0.1% (0-3) 0.2% (0-3) 0.1% (0-3) Prothrombin Time 38.9sec (8.1-12.5) 38.7sec (8.1-12.5) 43.1sec (8.1-12.5) Prothromb Time International Ratio 3.54ratio 3.53ratio 3.92ratio Sodium Level 134mEq/L (134-144) 133mEq/L (134-144) 136mEq/L (134-144) Potassium Level 4.8mEq/L (3.5-5.2) 4.7mEq/L (3.5-5.2) 4.4mEq/L (3.5-5.2) Chloride Level 102mEq/L (97-108) 102mEq/L (97-108) 106mEq/L (97-108) Carbon Dioxide Level 19mmol/L (18-29) 18mmol/L (18-29) 19mmol/L (18-29) Blood Urea Nitrogen 53mg/dL (8-27) 50mg/dL (8-27) 52mg/dL (8-27) Creatinine 1.83mg/dL (0.76-1.27) 1.79mg/dL (0.76-1.27) 1.75mg/dL (0.76-1.27) Estimat Glomerular Filtration Rate 39mL/min (>59) 40mL/min (>59) 41mL/min (>59) Glucose Level 348mg/dL (60-99) 273mg/dL (60-99) 247mg/dL (60-99) Calcium Level 7.9mg/dL (8.5-10.1) 8.0mg/dL (8.5-10.1) 7.9mg/dL (8.5-10.1) Procalcitonin 3.58ng/mL (0.00-0.08) 3.22ng/mL (0.00-0.08) X-Rays, CTs and MRIs PROCEDURE: X-RAY RIGHT FOOT COMPLETE, MINIMUM THREE VIEWS ([id number]) INDICATIONS: POST SURGERY ON RIGHT FOOT TECHNIQUE: 3 views of the foot were acquired. COMPARISON: 01/05/2017 FINDINGS: Bones: First and second metatarsals amputations show mild bony resorption at the end of the bony stumps. Margins appear sharp or on the lateral projection. Soft tissues: Postoperative changes of the soft tissues show interval improvement with diminished swelling and artifact. IMPRESSION: Expected postoperative changes with progression since last exam. Dictated by: Olman Sim M.D. on 01/15/2017 at 16:27 Approved by: Olman Sim M.D. on 01/15/2017 at 16:30 CT brain 1. No acute intracranial abnormalities. 2. Cerebral volume loss and chronic microvascular ischemic change Dictated by: Milton Bardales M.D. on 01/03/2017 at 12:54 Chest x-ray IMPRESSION: No acute cardiopulmonary disease. Dictated by: Milton Bardales M.D. on 01/03/2017 at 13:55 Venous duplex IMPRESSION: No deep venous thrombosis in the right lower extremity. Dictated by: Milton Bardales M.D. on 01/03/2017 at 12:40 01/04 PROCEDURE: X-RAY RIGHT FOOT COMPLETE, MINIMUM THREE VIEWS ([id number]) IMPRESSION: Worsening osteomyelitis involving the first metatarsal head with gas within the adjacent soft tissues as well as throughout the dorsal aspect of the soft tissues. Although the gas may be related to recent instrumentation, developing necrotizing fasciitis cannot be excluded and clinical correlation and followup is recommended. Dr. Key given results at 1108 hours on 01/05/2017. Dictated by: Sung Tejada [facility] Interpreted: Rhona Paige MD on 01/05/2017 at 10:56 01/05 PROCEDURE: X-RAY RIGHT FOOT COMPLETE, MINIMUM THREE VIEWS ([id number]) IMPRESSION: Interval postoperative changes of the right forefoot as described. No radiopaque foreign bodies. Dictated by: Ronal Galindo M.D. on 01/05/2017 at 15:58 01/06 PROCEDURE: US RENAL SONOGRAM 1. Left renal inferior exophytic cyst otherwise normal kidneys. 2. 707 cc prevoid urinary volume and postvoid residual cannot be assessed. Cardiac Echo Impressions Last echo 04/06/16 Interpretation Summary Left ventricular wall thickness is mild-moderately increased. Assessment of diastolic parameters indicates a relaxation abnormality of the left ventricle, consistent with normal filling pressures. The right ventricle is normal in size and function. Pulmonary artery pressures cannot be estimated because of the lack of a measurable TR jet velocity. Both atria are normal in size. There is no significant valvular heart disease. The aortic root is normal size. The aortic arch is normal in size. TTE 01/05/17 The study quality was technically difficult. A contrast injection of Definity was performed to improve assessment of LV function. Left ventricular ejection fraction is estimated to be 50%. Apical hypokinesis is suspected, LVEF is slightly lower on this exam. The right ventricle is normal size. Right ventricular systolic function is mildly reduced. The right ventricular systolic pressure is estimated at 25 mmHg assuming a right atrial pressure of 8 mm Hg. In an off axis view there is an echodensity along the superior aspect of the IAS, this could be an artifact. A VIRGINIA can hlep elucidate this further, or a limited echo to re evaluate the RA may be requested. VIRGINIA 01/07/17 The left ventricular ejection fraction is grossly normal. The interatrial septum is intact with no evidence for an atrial septal defect. No evidence of endocarditis. No mass seen in RA, TTE finding was artifactual. Assessment & Plan 71-year-old male with recent amputation of his right big toe and insulin- dependent diabetes who presents after being found down, with hypoglycemia and increased erythema of the right lower extremity consistent with cellulitis. Right foot cellulitis/osteomyelitis, POA, active -The patient had serial cultures+MSSA. s/p 2nd digit amputation, serial debridement by Dr. Key postop day #2 -Patient is status post debridment of infected soft tissue and bone, right foot , 01/15/17, postop day #2 -We will continue Zosyn for now (the patient is s/p Zosyn since 01/04/17 till , Ancef from 01/08/[address] Edwards Recommendation, continue to 02/14/17, switched back to zosyn as clinically worsened). - We will discuss case with Dr. Edwards tomorrow - We will check CBC to check white blood cell count and differential in a.m. - Check pro calcitonin level in a.m. Type 2 Diabetes with peripheral neuropathy, poa, active - The patient had a diabetic foot ulcer, Nephropathy and no proliferative retinopathy; POA, A1c 8.9, - The patient's glucose is in target range with current regimen. - We will continue Lantus, which was increased to 20AM, 30 at night,added 5 units lispro TIDAC + high dose nutritional scale lispro. - We will continue to hold Victoza sq Hypertension, poa, stable -We have discontinued Losartan and spironolactone due to hyperkalemia, -We will continue Amlodipine 10 mg daily, Lasix 20 mg daily, -We have increased coreg from 12.5 mg daily to 12.5 bid - We will check electrolytes in a.m. Altered mental status and Delirium, resolved Patient has decline in mental function after VIRGINIA. Mentation seems to be declining as patient is unable to respond correctly where he is or what year it is. He also has been having slurred speech. It should be restated that prior to admission, patient had fallen and stated he did hit his head on this head board and had his head wedged in between. Head CT at that time showed no acute intracranial abnormalities. - DDx: Includes stroke secondary to hemorrhage, medication side effects of versed and also considering reduced clearance of versed due to poor kidney function, encephalitis. - Likely secondary to medication side effects, but given history, ordered stat CT head. - Head CT unremarkable. Will decrease pain medications, cluster nursing care, ask for frequent reorientation and make sure there is daylight in room during days. - In the afternoon of 01/09/17, evaluated patient and his mentation is back to baseline when I first saw him on 01/04/17. The AMS and delirium was likely medication related as patient was given fentanyl for pain, versed for VIRGINIA, flexiril for spasms. This happened within a short time period on top of poor kidney function. Shortness of breath, resolved -Patient had increased coughing and shortness of breath 01/08/17. -Chest X-ray showed Bibasilar atelectasis versus aspiration or pneumonia. - Patient has been noted to be aspirating per speech evaluation and should have supervised PO intake. - Patient currently on Zosyn for osteomyelitis - Acapella and Incentive spirometry - Recheck CBC Acute on chronic kidney injury; present on admission; Resolved - Baseline Cr 1.3-1.7. Due to Hypertensive nephrosclerosis and Diabetic nephropathy - Renal ultrasound showed Pre-void bladder volume is 778 mL. - Patient has Milton as of 01/06/17. Improved BUN and Cr afterwards. - We will continue to avoid nephrotoxic insults, monitor urine output - Fluids discontinued 01/08/17 - As no improvement in renal function we will ask nephrology to see. Paroxysmal Atrial fibrillation on Coumadin; present on admission; stable - The patient was monitored on telemetry till 01/09/17. Patient out of A. fib for several days prior. - We will continue rate control with Carvedilol - Continue warfarin per pharmacy - Daily INR. Ordered 2 units FFP to reduce INR below 2 prior to I&D. Patient only recieved 1 unit. Held second unit after surgery on 01/05. Severe Sepsis - Resolved Secondary to RLE cellulitis and bacteremia found on admission. Patient on admission had leukocytosis of 24.3, tachycardia and tachypnea. Leukocytosis has been improving daily now down to 13.2. RLE very hot, erythematous and edematous , with fluctuant mass on base of RLE 1st digit. This has been improving throughout his admission with treatment initially on ancef and now on zosyn. Recent cultures in September show MSSA pansensitive. Nasal MRSA swab negative. Blood cultures have also been grown gram positive cocci likely to be staph aureus. - Patient no longer tachycardic or tachypneic. Leukocytosis is down to 12.3. - Appreciate Dr. Key consult and ID consult. - I/D done 01/[address] Key drained approximately 50 cc of pustular discharge. Patient had extensive debridement and amputation of right second toe in OR 01/05. - Discontinued Ancef 01/05/17 - Continued zosyn, start date 01/04/17. Will transition to Ancef + Flagyl 01/[address] Edwards recommendation. Plan is for treatment of antibiotics for 6 weeks for osteomyelitis. - TTE showed EF of 50%, apical hypokineseis and an echodensity along the superior aspect of the IAS, which could be an artifact. VIRGINIA would help elucidate this further. Per conversation with caridiologist, differential includes myxoma, so will proceed with VIRGINIA for 01/07. - Follow CBC, BMP -Repeat procalcitonin trended down as above Hyperlipidemia - We will continue Atorvastatin 40 mg daily Acquired hypothyroidism - We will continue Synthroid 75 mcg daily Hypoglycemia, due to noncompliance; present on admission; Resolved - Pt has been without his glucometer; when obtained reading was "very high" likely due to above infection - Patient overdosed on Lantus, taking 2-3 times more than prescribed - Continue to monitor glucose Mild troponin elevation; present on admission; Resolved -Likely due to acute kidney injury -Now wnl Anion gap metabolic acidosis with lactic acidosis; present on admission; Resolved -Anion gap improved from 20 to 12, lactic acid trended to 1.0. - IV fluids were used initially when patient had limited PO intake. Acetaminophen for mild pain when necessary. Bowel regimen Senna and MiraLAX scheduled and PRN. Zofran when necessary for nausea and vomiting. SubQ heparin held for now. SCDs in place. High-risk medications: Warfarin Disposition: pending given surgical course, will be discharged to SNF when medically stable. Pain Evaluation: Adequate Pain Control GI Prophylaxis: Not indicated VTE Prophylaxis: Theraputic Anticoag with Warfarin VTE Mechanical Devices: Intermittant Pneumatic CD Resuscitation Status: CPR: Attempt Resuscitation Stan Doe MD Jan 17, 2017 19:42
[2017-01-17 19:51] VITALS: BP 167/72; PULSE 83; RESP 18; O2SAT 91
--- NOTE | 2017-01-17 22:36 | NUR ---
Respiratory Patient A&OX3 and pleasant this evening. Upon assessment patient o2 sats were 91% on RA. 2LO2 via NC applied, and VENDOR MANAGER applied. Patient is currently satting at 93%. Denies respiratory difficulty. Will continue to monitor and continue Q1 hour checks.
[2017-01-18] MEDS: Sodium Chloride LOK Flush 10 mL Syringe IVFLUSH SCH ×3 (00:30→16:30)
[2017-01-18] MEDS: Piperacillin-Tazo 3.375 Gm Inj 3.375 GM in Dextrose 5% Minibag Plus 50 ML IV SCH ×3 (01:30→18:43)
[2017-01-18 04:23] VITALS: BP 168/73; PULSE 79; RESP 20; O2SAT 90
[2017-01-18 05:28] LABS: BASOPHILS % (AUTO) 0.5 % (0-3); EOSINOPHILS % (AUTO) 2.3 % (0-5); MONOCYTES % (AUTO) 6.5 % (4-12); Mean Corpuscular Hemoglobin 29.2 pg (27.0-35.0); Mean Corpuscular Volume 94.2 fL (81-100); NEUTROPHILS % (AUTO) 75.4 % (40-74); Platelet Count 359 bil/L (150-400)
[2017-01-18 05:43] LABS: INR 1.13 ratio
[2017-01-18 05:51] LABS: ERYTHROCYTE SEDIMENTATION RATE > 140 mm/hr (0-30)
[2017-01-18 06:05] LABS: Magnesium 2.4 mg/dL (1.6-2.6)
[2017-01-18] MEDS: Insulin LISPRO 300 Unit/3 mL Inj SUBQ SCH ×7 (07:30→22:00)
[2017-01-18 08:57] VITALS: BP 143/77; PULSE 63; RESP 18; O2SAT 93
[2017-01-18] MEDS: Insulin GLARgine 100 Unit/mL Syringe SUBQ SCH ×2 (09:44→22:24)
--- NOTE | 2017-01-18 10:08 | PROG NOTE ---
[address] [address] PROGRESS NOTE PATIENT: DARA OLIVAS : 1945 MR#: [id number] ADMIT: 01/03/2017 JOB ID: [id number] DATE: 01/18/2017 SUBJECTIVE: The patient is seen for followup of infected ulcer, right foot. He states he did not sleep well last night. Otherwise, he denies any pain in his foot, fever, or chills. PHYSICAL EXAMINATION: Blood pressure 143/77, pulse 63, respiratory rate 16, temperature 36.8, pulse oximetry 93% on room air. Lower extremity exam: The wound VAC was removed by ANTONIO Kerr PT, this morning. The ulceration has increased granulation tissue within the wound base. There is a small amount of pink granulation noted over the medial cuneiform and intermediate cuneiform as well as the 3rd metatarsal base. The lateral dorsal portion of the 2nd metatarsal base also has a small amount of granulation tissue. However, the remaining portion of the second metatarsal base that is exposed is yellow in color. However, is hard to palpation. The 3rd metatarsal distally also has some bleeding bone noted within the outer cortex. The extensor hallucis longus as well as the extensor digitorum longus is exposed within the wound base and there is some increased granulation tissue over the distal portion. The tendon is slightly yellow discolored in appearance. There is also an area of ecchymosis and non-blanchable tissue along the medial border of the wound over the 1st metatarsal shaft. There is no pustular discharge or fluctuance noted. There is mild erythema and swelling around the distal lateral margin of the wound. However, this is decreased from when I last saw it on January 15. LABORATORY DATA: WBC 10.5, hemoglobin 8.6, hematocrit 27.8, neutrophils 75.4. ESR greater than 140. Sodium 140, potassium 5.5, chloride 105, carbon dioxide 22, BUN 46, creatinine 2.02, estimated GFR 35, glucose 136. Total protein 5.3, albumin 2.6. ASSESSMENT AND PLAN: 1. Cellulitis with osteomyelitis, right foot. His white count is decreased and the tissues look improved. I am still concerned about the 2nd metatarsal base, however, which does not show any granulation tissue forming over the bone and his sed rate is greater than 140. I recommended that he continue with long-term IV antibiotics and hyperbaric oxygen therapy which would also help with resolving this limb threatening infection. If the 2nd metatarsal bone infection does not resolve with IV antibiotics and hyperbaric oxygen as well as bone debridement in the future, he will be looking at a below-knee amputation. This would have a huge impact on his current lifestyle as he is already unstable in gait due to his peripheral neuropathy and it is difficult to say if he would be able to ambulate with a prosthesis. 2. Diabetic neuropathic ulceration, right foot, is improved. I debrided the bone at the 2nd metatarsal base with a tissue nipper and curette, as well as around the areas of yellow bone around the medial cuneiform, intermediate cuneiform and the 3rd metatarsal base as well as the 3rd metatarsal head. The tendon which does not have any granulation tissue forming over it was debrided superficially to remove unhealthy tendon and allow the tissues to granulate over the area. The wound VAC will be placed back on with white and black foam to protect the tendinous and bony structures. The wound VAC will continue to be in place until granulation tissue forms over the deeper structures of the level of the skin and the plan, if everything goes well, is to do a skin graft over the remaining area. The patient can now be discharged to a correction facility once he is medically stable, which will be determined by the hospitalist.
--- NOTE | 2017-01-18 11:26 | NUR ---
Social Work: Multi-Disciplinary Rounds/Continued Discharge Planning D: EMR reviewed. Pt is on day 15 of hospitalization. Per multi-disciplinary rounds ID is following pt. Podiatry is following pt. Per MD in rounds, nephrology has been consulted. Pt is in renal failure. MD states that discharge is pending ID - pt is still receiving wound debridement and is likely to remain hospitalized for 2-3 more days. PT is recommending daily PT at SNF for 4 weeks. Pt will require IVABX at SNF. 01/17: T/C to [facility] who is following [facility]. [facility] pending insurance authorization and review of final ABX recommendations. [facility] will continue to update [facility]. [facility] also has access. [facility] met with pt at bedside regarding discharge plan. Pt continues to be agreeable that [facility] is the necessary discharge plan. All updated and agreeable to plan. Paperwork in chart. PASRR in folder. A: Pt for whom SNF is medically necessary P: [facility] pt pending insurance authorization and review of final ABX recommendations. [facility] will continue to update [facility]. Paperwork in chart. PASRR in folder. Pt is agreeable to plan. [facility] will continue to follow. YINA [facility]
--- NOTE | 2017-01-18 13:20 | PCM.PHAPRO ---
Progress WARFARIN DOSING PER PHARMACY DFF DFF MH RTM SLF SLF ARH WF WF DFF Jan 08-Dec 10-Jan 10-Jan 3-Jan 12-Jan 5-Jan 6-Jan 7-Jan 8-Jan 17-Jan 18-Jan 3.54 3.53 3.92 1.86 1.34 1.37 1.55 1.35 1.10 1.08 1.11 1.13 3.54 -0.01 0.39 -2.06 -0.52 0.03 0.18 -0.2 -0.25 -0.02 0.03 0.02 HOLD HOLD HOLD 2 MG 3MG HELD held hold hold 5MG 5MG 5 MG A/P -Subtherapeutic INR following held doses for procedure a few days ago. -Will continue with warfarin 5 mg this evening given recent history of supratherapeutic levels on current dose. Will consider slight dose increase if a significant increase isn't noted tomorrow Modesto Fairchild, PharmD Mod[place] Fairchild Jan 18, 2017 13:20
--- NOTE | 2017-01-18 16:19 | PROG NOTE ---
[address] [address] PROGRESS NOTE PATIENT: DARA OLIVAS : 1945 MR#: [id number] ADMIT: 01/03/2017 JOB ID: [id number] DATE: 01/18/2017 REASON FOR FOLLOWUP: MSSA bacteremia and very complicated right diabetic foot infection with osteomyelitis. INTERVAL HISTORY: The patient reports she is feeling fine today. No fevers, chills or sweats. No cough, shortness of breath, chest pain, or GI symptoms. He has no pain in his right foot. He tells me he will be going to a shelter within the next 1-2 days. PHYSICAL EXAMINATION: Reveals an afebrile gentleman, temperature 36.8, pulse 63, respiratory rate 18, blood pressure 143/77. He is saturating well on room air, and he is in no acute distress. Examination of the mental status is unremarkable. The patient is quite alert and interactive today. Oral cavity negative. Lungs clear. Abdomen benign. His right foot has a large wound VAC on it. I discussed the findings underneath the wound VAC with Wound Management and they report very little in the way of inflammation or pus. I also carefully reviewed Dr. Key's note from today, where she describes generalized improvement, though some concerns about the second metatarsal head ulceration. LABORATORIES: Include white count 10,500. Sed rate is still greater than 140. CRP 3.1. Micro includes the positive blood cultures from January 03, with negative followup blood cultures. These cultures grew MSSA as did cultures from his foot. X-ray of the foot done on January 15 shows no unexpected findings. IMPRESSION: This is an unfortunate gentleman with ongoing significant diabetic foot infection. The primary organism here, of course, is methicillin-sensitive Staphylococcus aureus as it grew from both the foot wound, as well as blood cultures. At this point, I think the most reasonable approach would be to continue with intravenous antibiotics which would provide coverage for methicillin-sensitive Staphylococcus aureus through at least February 15. I do not think it would be unreasonable to switch to Ancef as no other organisms were isolated from blood but Dr. Key had been concerned that when we switched from broad-spectrum antibiotics to Ancef earlier, that his foot may have worsened, so our plan has been to continue with Zosyn or perhaps ertapenem through the conclusion of therapy. RECOMMENDATIONS: 1. The patient can be discharged to a detention facility at any time. 2. I agree with careful wound followup and consideration for hyperbarics. 3. Antibiotics should continue through February 15 to complete a full six weeks of therapy for this bacteremic MSSA osteo. At the conclusion of that therapy, I do not think it would be unreasonable to prescribe a course of Keflex or some similar agent for some follow-on therapy. 4. The IV antibiotic through February 15 could be reasonably Ancef, Zosyn, or ertapenem. Given Dr. Key's preference for more polymicrobial coverage, I think Zosyn is probably the most economical, though ertapenem would be the easiest to give. FINAL RECOMMENDATION: 1. Zosyn or ertapenem IV through February 15, with weekly CBC and CMP followup. 2. I understand the patient will be going to a detention facility and I assume he will be followed by the physicians there for the duration of his IV therapy, but I am happy to see the patient in clinic between now on February 15 at any time as requested. 3. ID will go ahead and sign off at this time.
--- NOTE | 2017-01-18 18:42 | PCM.PNMED ---
Subjective Date of Service Jan 18, 2017 Subjective The patient has no new complaints other than he did not sleep well last night and is feeling sleepy today. He has no fever, chills or diaphoresis. Exam Vital Signs Vital Sign - Last Date Time Temp Pulse Resp B/P Pulse Ox O2 Delivery O2 Flow Rate FiO2 01/18/17 13:50 Room Air 01/18/17 08:57 36.8 63 18 143/77 93 01/17/17 13:10 2.50 Intake and Output 01/17/17 01/17/17 01/18/17 Cumulative From/Thru 15:00 23:00 07:00 01/03/17 11:59 - 01/18/17 06:23 Intake Total 0 ml 1222 ml 800 ml 86469 ml Output Total 2875 ml 700 ml 23579 ml Balance 0 ml -1653 ml 100 ml 02377 ml Intake Oral 1222 ml 800 ml 23248 ml IV Total 0 ml 08831 ml TPN/PPN 100 ml Output Urine Total 2875 ml 700 ml 11245 ml Estimated Blood Loss 30 ml # Voids 8 # Bowel Movements 0 1 8 Exam General: Patient is an no apparent distress at this time. He is laying supine in bed. He is somnolent as he states he did not sleep well last night HEENT: Head is atraumatic and normocephalic. Eyes: Pupils are equally round and reactive to light and accommodation. Extraocular muscles are intact. Sclera are white, anicteric. Subconjunctival mucosa is pink. Ears and nose are unremarkable. Oropharynx: There is no mucosal lesions, there is no thrush, there is no pharyngitis. Neck: Is supple, there are no nodes, or masses or tenderness. Chest: Is clear to auscultation and percussion. There are no rales, rhonchi, wheezes or rubs. Heart: Rate, rhythm is regular. There is no murmur, rub or gallop. Abdomen: Good bowel sounds are present. Abdomen is soft, nontender, no organomegaly or masses were appreciated. Extremities: The right foot is in a postoperative wrap with a wound VAC in place. There is minimal to no surrounding cellulitis. The left foot is in an Raymond wrap placed by the wound care team today. There is no strike through bleeding. Neurologic: There are no focal neurological deficits. Cranial nerves II through XII are intact. There are no sensory or motor deficits. Psychiatric: Patients mood is calm and shows no sign of agitation. Genital: Deferred Rectal: Deferred Lab and Diagnostics Result Diagram: 01/18/17 0500 01/18/17 0500 Microbiology Specimen: [id number] Collected: 01/03/17 Status: COMP Req#: [id number] Received: 01/03/17 Source: BLOOD Sp Desc : AA Subm Dr: Nader Gordon MD Ordered: Comments: Collected by Nurse/Unit? Y/N N Procedure Result Verified Site Microbiology JAYDE CULTURE BLOOD Final 01/06/17-0700 Organism 1 STAPHYLOCOCCUS AUREUS GRAM STAIN RESULT GRAM POSITIVE COCCI ?STAPH BC BOTTLE Isolated from Aerobic Bottle of Set Drawn DATE CALLED: 01/04/17 TIME CALLED: 0631 CALLED BY: SIA FLOOR/DOCTOR: MEHUL/SAMRA Gipson BC READ BACK Y TYPE OF DRAW NURSE COLLLECT TYPE NOT SPECIFIED TIME OF POSITIVITY 0600 GRAM STAIN RESULT GRAM POSITIVE COCCI ?STAPH BC BOTTLE2 Isolated from Anaerobic Bottle of Set Drawn DATE CALLED: 01/04/17 TIME CALLED: 1112 CALLED BY: SIA FLOOR/DOCTOR: BHANU Yarbrough BC READ BACK Y TYPE OF DRAW NURSE COLLECT TYPE NOT INDICATED TIME OF POSITIVITY 1050 STAPHYLOCOCCUS AUREUS Oxacillin Susceptible Penicillin Resistant Staph spp. are Susceptible to Penicillin stable penicillins, Blactam/Blactamase inhibitor combinations, antistaphyloccal cephems, and carbapenems. ISOLATED FROM FOUR OF FOUR BOTTLES COLLECTED 01/03/17. 1. STAPHYLOCOCCUS AUREUS M.I.C Interp --------- ------ * CEFAZOLIN S * CLINDAMYCIN <=0.25 S * ERYTHROMYCIN <=0.25 S CONTINUED ON NEXT PAGE RUN DATE: 01/06/17 [facility] LIVE PAGE 2 RUN TIME: 0700 Specimen Inquiry PHYSICIAN Patient: DARA OLIVAS [id number] (Continued) Specimen: [id number] Collected: 01/03/17-1220 Received: 01/03/17-124 (Continued) Procedure Result Verified Site JAYDE CULTURE BLOOD Final (continued) 01/06/17-699 1. STAPHYLOCOCCUS AUREUS (continued) M.I.C Interp --------- ------ * LINEZOLID 2 S * MOXIFLOXACIN <=0.25 S * OXACILLIN JAYDE 0.5 S * RIFAMPIN <=0.5 S * TETRACYCLINE <=1 S * TRIMETHOPRIM/SULFAMETHOXAZOLE <=10 S * VANCOMYCIN <=0.5 S Name: DARA OLIVAS Age/Sex: 71/M Attend Dr: Luigi Arrieta MD Acct: [id number] Unit: [id number] Status: [place] [facility] [place] Re01/03/17 Disch: Specimen: [id number] Collected: 01/05/17-1323 Status: CATRACHITO Warner#: [id number] Received: 01/05/17 Source: FOOT Sp Desc : Subm Dr: Jeanne Key DPM Ordered: CS & ANAC & GS Comments: Collected by Nurse/Unit? Y/N Y Comment: RIGHT FOOT, DEEP CULTURE Procedure Result Verified Site Microbiology JAYDE GS (GRAM STAIN) Final 01/05/17 GRAM STAIN RESULT NO POLYS SEEN FEW GRAM POS COCCI JAYDE CULT AEROBIC Final 01/12/17 Organism 1 STAPHYLOCOCCUS AUREUS COLONY COUNT/QUANTITY HEAVY GROWTH Oxacillin Susceptible Penicillin Resistant Staph spp. are Susceptible to Penicillin stable penicillins, Blactam/Blactamase inhibitor combinations, antistaphyloccal cephems, and carbapenems. 1. STAPHYLOCOCCUS AUREUS M.I.C Interp --------- ------ * CEFAZOLIN S * CLINDAMYCIN <=0.25 S * ERYTHROMYCIN <=0.25 S * LINEZOLID 2 S * MOXIFLOXACIN <=0.25 S * OXACILLIN JAYDE 0.5 S * RIFAMPIN <=0.5 S * TETRACYCLINE <=1 S * TRIMETHOPRIM/SULFAMETHOXAZOLE <=10 S * VANCOMYCIN <=0.5 S ANAEROBIC CULTURE Final 01/12/17 No anaerobes isolated Laboratory Tests 72 Hours Test 01/06/17 19:59 01/07/17 03:10 01/08/17 03:00 01/09/17 02:55 Urine Color Yellow (YELLOW) Urine Appearance Hazy (CLEAR,HAZY) Urine pH 5.0 (5.0-8.0) Urine Specific [place] 1.020 (1.003-1.035) Urine Protein 30mg/dL (NEG,TRACE) Urine Glucose (UA) Negativemg/dL (NEGATIVE) Urine Ketones Negativemg/dL (NEGATIVE) Urine Occult Blood Small (NEGATIVE) Urine Nitrite Negative (NEGATIVE) Urine Bilirubin Negative (NEGATIVE) Urine Urobilinogen Normalmg/dL (NORMAL) Urine Leukocyte Esterase Negative (NEGATIVE) Urine RBC 0-2/hpf (0-2) Urine WBC 0-5/hpf (0-5) Urine Epithelial Cells Occasional/hpf (NONE-MOD) Urine Crystals Amorphous urates (NONE Urine Bacteria None/hpf (NONE-FEW) Urine Hyaline Casts None/lpf (NONE) Urine Granular Casts None seen (NONE SEEN) Urine Waxy Casts None seen (NONE SEEN) Urine Red Blood Cell Casts None seen (NONE SEEN) Urine White Blood Cell Casts None seen (NONE SEEN) Urine Mucus None seen (None Seen) Urine Trichomonas None seen (NONE SEEN) Urine Yeast None (NONE SEEN) Urinalysis Comment None Urine Culture Reflexed Not indicated White Blood Count 10.0th/mm3 (3.8-10.1) 10.9th/mm3 (3.8-10.1) 9.6th/mm3 (3.8-10.1) Red Blood Count 3.44mil/mm3 (4.40-5.80) 3.50mil/mm3 (4.40-5.80) 3.28mil/mm3 (4.40-5.80) Hemoglobin 10.2g/dL (13.8-17.2) 10.4g/dL (13.8-17.2) 9.5g/dL (13.8-17.2) Hematocrit 31.7% (41.0-50.0) 31.8% (41.0-50.0) 29.7% (41.0-50.0) Mean Corpuscular Volume 92.2fL (81-100) 90.9fL (81-100) 90.5fL (81-100) Mean Corpuscular Hemoglobin 29.7pg (27.0-35.0) 29.7pg (27.0-35.0) 29.0pg (27.0-35.0) Mean Corpuscular Hemoglobin Concent 32.2% (32.0-37.0) 32.7% (32.0-37.0) 32.0% (32.0-37.0) Red Cell Distribution Width 15.3% (12.3-15.4) 14.9% (12.3-15.4) 14.9% (12.3-15.4) Platelet Count 208bil/L (150-400) 287bil/L (150-400) 312bil/L (150-400) Neutrophils (%) (Auto) 73.2% (40-74) 77.9% (40-74) 74.0% (40-74) Lymphocytes (%) (Auto) 11.4% (14-46) 9.2% (14-46) 12.4% (14-46) Monocytes (%) (Auto) 12.6% (4-12) 10.9% (4-12) 11.5% (4-12) Eosinophils (%) (Auto) 2.2% (0-5) 1.3% (0-5) 1.6% (0-5) Basophils (%) (Auto) 0.1% (0-3) 0.2% (0-3) 0.1% (0-3) Prothrombin Time 38.9sec (8.1-12.5) 38.7sec (8.1-12.5) 43.1sec (8.1-12.5) Prothromb Time International Ratio 3.54ratio 3.53ratio 3.92ratio Sodium Level 134mEq/L (134-144) 133mEq/L (134-144) 136mEq/L (134-144) Potassium Level 4.8mEq/L (3.5-5.2) 4.7mEq/L (3.5-5.2) 4.4mEq/L (3.5-5.2) Chloride Level 102mEq/L (97-108) 102mEq/L (97-108) 106mEq/L (97-108) Carbon Dioxide Level 19mmol/L (18-29) 18mmol/L (18-29) 19mmol/L (18-29) Blood Urea Nitrogen 53mg/dL (8-27) 50mg/dL (8-27) 52mg/dL (8-27) Creatinine 1.83mg/dL (0.76-1.27) 1.79mg/dL (0.76-1.27) 1.75mg/dL (0.76-1.27) Estimat Glomerular Filtration Rate 39mL/min (>59) 40mL/min (>59) 41mL/min (>59) Glucose Level 348mg/dL (60-99) 273mg/dL (60-99) 247mg/dL (60-99) Calcium Level 7.9mg/dL (8.5-10.1) 8.0mg/dL (8.5-10.1) 7.9mg/dL (8.5-10.1) Procalcitonin 3.58ng/mL (0.00-0.08) 3.22ng/mL (0.00-0.08) X-Rays, CTs and MRIs PROCEDURE: X-RAY RIGHT FOOT COMPLETE, MINIMUM THREE VIEWS ([id number]) INDICATIONS: POST SURGERY ON RIGHT FOOT TECHNIQUE: 3 views of the foot were acquired. COMPARISON: 01/05/2017 FINDINGS: Bones: First and second metatarsals amputations show mild bony resorption at the end of the bony stumps. Margins appear sharp or on the lateral projection. Soft tissues: Postoperative changes of the soft tissues show interval improvement with diminished swelling and artifact. IMPRESSION: Expected postoperative changes with progression since last exam. Dictated by: Olman Sim M.D. on 01/15/2017 at 16:27 Approved by: Olman Sim M.D. on 01/15/2017 at 16:30 CT brain 1. No acute intracranial abnormalities. 2. Cerebral volume loss and chronic microvascular ischemic change Dictated by: Milton Bardales M.D. on 01/03/2017 at 12:54 Chest x-ray IMPRESSION: No acute cardiopulmonary disease. Dictated by: Milton Bardales M.D. on 01/03/2017 at 13:55 Venous duplex IMPRESSION: No deep venous thrombosis in the right lower extremity. Dictated by: Milton Bardales M.D. on 01/03/2017 at 12:40 01/04 PROCEDURE: X-RAY RIGHT FOOT COMPLETE, MINIMUM THREE VIEWS ([id number]) IMPRESSION: Worsening osteomyelitis involving the first metatarsal head with gas within the adjacent soft tissues as well as throughout the dorsal aspect of the soft tissues. Although the gas may be related to recent instrumentation, developing necrotizing fasciitis cannot be excluded and clinical correlation and followup is recommended. Dr. Key given results at 1108 hours on 01/05/2017. Dictated by: Sung Tejada [facility] Interpreted: Rhona Paige MD on 01/05/2017 at 10:56 01/05 PROCEDURE: X-RAY RIGHT FOOT COMPLETE, MINIMUM THREE VIEWS ([id number]) IMPRESSION: Interval postoperative changes of the right forefoot as described. No radiopaque foreign bodies. Dictated by: Ronal Galindo M.D. on 01/05/2017 at 15:58 01/06 PROCEDURE: US RENAL SONOGRAM 1. Left renal inferior exophytic cyst otherwise normal kidneys. 2. 707 cc prevoid urinary volume and postvoid residual cannot be assessed. Cardiac Echo Impressions Last echo 04/06/16 Interpretation Summary Left ventricular wall thickness is mild-moderately increased. Assessment of diastolic parameters indicates a relaxation abnormality of the left ventricle, consistent with normal filling pressures. The right ventricle is normal in size and function. Pulmonary artery pressures cannot be estimated because of the lack of a measurable TR jet velocity. Both atria are normal in size. There is no significant valvular heart disease. The aortic root is normal size. The aortic arch is normal in size. TTE 01/05/17 The study quality was technically difficult. A contrast injection of Definity was performed to improve assessment of LV function. Left ventricular ejection fraction is estimated to be 50%. Apical hypokinesis is suspected, LVEF is slightly lower on this exam. The right ventricle is normal size. Right ventricular systolic function is mildly reduced. The right ventricular systolic pressure is estimated at 25 mmHg assuming a right atrial pressure of 8 mm Hg. In an off axis view there is an echodensity along the superior aspect of the IAS, this could be an artifact. A VIRGINIA can hlep elucidate this further, or a limited echo to re evaluate the RA may be requested. V[place]IA 01/07/17 The left ventricular ejection fraction is grossly normal. The interatrial septum is intact with no evidence for an atrial septal defect. No evidence of endocarditis. No mass seen in RA, TTE finding was artifactual. Assessment & Plan 71-year-old male with recent amputation of his right big toe and insulin- dependent diabetes who presents after being found down, with hypoglycemia and increased erythema of the right lower extremity consistent with cellulitis. Right foot cellulitis with osteomyelitis, present on admission, active -The patient had serial cultures+MSSA. s/p 2nd digit amputation, serial debridement by Dr. Key postop day #3 -Patient is status post debridment of infected soft tissue and bone, right foot , 01/15/17, postop day #3. Dr. Key performed further debridement today (please see her note). -We will continue Zosyn for now (the patient is s/p Zosyn since 01/04/17 till , Ancef from 01/08/[address] Edwards Recommendation, continue to 02/14/17, switched back to zosyn as clinically worsened). - I have discussed case with Dr. Edwards today and appreciate his time and expertise. We will follow his recommendations. - We will check CBC to check white blood cell count and differential in a.m. - Check pro calcitonin level in a.m. Type 2 Diabetes with peripheral neuropathy, poa, active - The patient had a diabetic foot ulcer, Nephropathy and retinopathy; present on admission , A1c 8.9, - The patient's glucose is in target range with current regimen. - We will continue Lantus, which was increased to 20AM, 30 at night,added 5 units lispro TIDAC + high dose nutritional scale lispro. - We will continue to hold Victoza sq Hypertension, poa, stable -We have discontinued Losartan and spironolactone due to hyperkalemia, -We will continue Amlodipine 10 mg daily, Lasix 20 mg daily, -We have increased coreg from 12.5 mg daily to 12.5 bid - We will check electrolytes in a.m. Altered mental status and Delirium, resolved Patient had decline in mental function after VIR[place]IA. Mentation seemed to be declining as patient is unable to respond correctly where he was or what year it was. He also had some slurred speech. It should be restated that prior to admission, patient had fallen and stated he did hit his head on this head board and had his head wedged in between. Head CT at that time showed no acute intracranial abnormalities. - DDx: Includes stroke secondary to hemorrhage, medication side effects of versed and also considering reduced clearance of versed due to poor kidney function, encephalitis. - Likely secondary to medication side effects, but given history, ordered stat CT head. - Head CT unremarkable. Will decrease pain medications, cluster nursing care, ask for frequent reorientation and make sure there is daylight in room during days. - In the afternoon of 01/09/17, evaluated patient and his mentation is back to baseline since first seen on 01/04/17. The AMS and delirium was likely medication related as patient was given fentanyl for pain, versed for VIR[place]IA, flexiril for spasms. This happened within a short time period on top of poor kidney function. - The patient's mentation is now back to baseline Shortness of breath, resolved -Patient had increased coughing and shortness of breath 01/08/17. -Chest X-ray showed Bibasilar atelectasis versus aspiration or pneumonia. - Patient has been noted to be aspirating per speech evaluation and should have supervised PO intake. - Patient currently on Zosyn for osteomyelitis which will also treat aspiration pneumonitis - Acapella and Incentive spirometry has been ordered. - Recheck CBC periodically. Acute on chronic kidney injury; present on admission; Resolved - Baseline Cr 1.3-1.7. Due to Hypertensive nephrosclerosis and Diabetic nephropathy - Renal ultrasound showed Pre-void bladder volume is 778 mL. - Patient has Milton as of 01/06/17. Improved BUN and Cr afterwards. - We will continue to avoid nephrotoxic insults, monitor urine output - Fluids discontinued 01/08/17 - As no improvement in renal function we will ask nephrology to see. Paroxysmal Atrial fibrillation on Coumadin; present on admission; stable - The patient was monitored on telemetry till 01/09/17. Patient out of A. fib for several days prior. - We will continue rate control with Carvedilol - Continue warfarin per pharmacy - Daily INR. Ordered 2 units FFP to reduce INR below 2 prior to I&D. Patient only recieved 1 unit. Held second unit after surgery on 01/05. Severe Sepsis - Resolved Secondary to RLE cellulitis and bacteremia found on admission. Patient on admission had leukocytosis of 24.3, tachycardia and tachypnea. Leukocytosis has been improving daily now down to 13.2. RLE very hot, erythematous and edematous , with fluctuant mass on base of RLE 1st digit. This has been improving throughout his admission with treatment initially on ancef and now on zosyn. Recent cultures in September show MSSA pansensitive. Nasal MRSA swab negative. Blood cultures have also been grown gram positive cocci likely to be staph aureus. - Patient no longer tachycardic or tachypneic. Leukocytosis is down to 12.3. - Appreciate Dr. Key consult and ID consult. - I/D done 01/[address] Key drained approximately 50 cc of pustular discharge. Patient had extensive debridement and amputation of right second toe in OR 01/05. - Discontinued Ancef 01/05/17 - Continued zosyn, start date 01/04/17. Will transition to Ancef + Flagyl 01/[address] Edwards recommendation. Plan is for treatment of antibiotics for 6 weeks for osteomyelitis. - TTE showed EF of 50%, apical hypokineseis and an echodensity along the superior aspect of the IAS, which could be an artifact. V[place] would help elucidate this further. Per conversation with caridiologist, differential includes myxoma, so will proceed with VIRGINIA for 01/07. - Follow CBC, BMP -Repeat procalcitonin trended down as above Hyperlipidemia - We will continue Atorvastatin 40 mg daily Acquired hypothyroidism - We will continue Synthroid 75 mcg daily Hypoglycemia, due to noncompliance; present on admission; Resolved - Pt has been without his glucometer; when obtained reading was "very high" likely due to above infection - Patient overdosed on Lantus, taking 2-3 times more than prescribed - Continue to monitor glucose Mild troponin elevation; present on admission; Resolved -Likely due to acute kidney injury -Now wnl Anion gap metabolic acidosis with lactic acidosis; present on admission; Resolved -Anion gap improved from 20 to 12, lactic acid trended to 1.0. - IV fluids were used initially when patient had limited PO intake. Acetaminophen for mild pain when necessary. Bowel regimen Senna and MiraLAX scheduled and PRN. Zofran when necessary for nausea and vomiting. SubQ heparin held for now. SCDs in place. High-risk medications: Warfarin Disposition: Awaiting nephrology consult. Patient will likely be transferred to a senior living facility in the next 24-48 hours. Pain Evaluation: Adequate Pain Control GI Prophylaxis: Not indicated VTE Prophylaxis: Theraputic Anticoag with Warfarin VTE Mechanical Devices: Intermittant Pneumatic CD Resuscitation Status: CPR: Attempt Resuscitation Stan Doe MD Jan 18, 2017 18:42
--- NOTE | 2017-01-18 19:22 | NUR ---
Activity Patient feeling really drowsy today, stating being too tired to work with physical therapy. With a little more encouragement pt motivated to work with Physical therapy. SEE PTs note. No c/o of pain through the day.
[2017-01-18 20:05] VITALS: BP 137/74; PULSE 101; RESP 17; O2SAT 93
--- NOTE | 2017-01-18 20:19 | CONS ---
[address] [address] CONSULTATION REPORT PATIENT: DARA OLIVAS : 1945 MR#: [id number] ADMIT: 01/03/2017 JOB ID: [id number] DATE OF SERVICE: 01/18/2017 REFERRING PHYSICIAN: Karlee Kaplan MD HISTORY: The patient is a rather unfortunate, 71-year-old gentleman who was admitted to [facility] for cellulitis, Staph bacteremia, and osteomyelitis. At time of admission, his creatinine was fluctuating between 1.75 and 2. Renal consultation is being sought for further evaluation of his renal disease. He has approximately a 20/30 year history of insulin-requiring diabetes mellitus. His diabetes has been complicated by severe peripheral neuropathy involving a considerable amount of all four distal extremities, and peripheral vascular disease. He states his last eye exam was in July of this year and denies a history of any retinopathy. He denies a history of any prior renal problems. There is no history of any prior proteinuria, hematuria, recurrent urinary tract infections, renal lithiasis, difficulty in urination, frequent use of nonsteroidal anti-inflammatories, rheumatoid arthritis, or history of hepatitis. He does have extensive [place] experience from [facility] and has had some skin problems which may have represented a condition called chloracne. He also has a history of gout and possible psoriatic arthritis. He denies a history of any rheumatoid arthritis or history of inflammatory bowel disease. He has had considerable difficulties with peripheral vascular disease and has undergone a number of debridements and amputation of his right great toe. He had apparently a syncopal episode at home on the day of admission which was January 03, 2017. In the emergency department, he was found to have evidence of an infection and cellulitis. Subsequent workup of this is consistent with osteomyelitis. At time of admission, his BUN and creatinine were 43 and 8.19 respectively. In reviewing his previous lab going back several years, recently he has been having some fluctuation in his renal function. In August 2015, his creatinine was 1.07. In October of that year, it was 1.28, and this year he has ranged between 1.5-1.8. Since admission, he has leveled out with a creatinine of approximately 2.0. He has been maintained on Piperacillin, tazobactam, has been given metronidazole and I do not see where he has been given any Bactrim, NSAIDs, contrast, or vancomycin. Throughout his hospitalization, his blood pressures have been normal to a bit on the high side. He has not had any significant episodes of hypotension nor has he had any evidence of excessive dehydration. PAST MEDICAL HISTORY: Significant for insulin-requiring diabetes mellitus, as detailed above, hypertension with hypertensive heart disease and hypertensive nephrosclerosis, gout, [place] exposure, psoriatic arthritis, hyperlipidemia, TIA with possible multi-infarct dementia, severe peripheral vascular disease with recurrent foot ulcers, atrial fibrillation, coronary artery disease with stent placement. PAST SURGICAL HISTORY: Significant for right great toe amputation and debridement, cardiac catheterization with stent placement. ALLERGIES: He is allergic to: 1. VANCOMYCIN. 2. HYDROCORTISONE. 3. PENTAZOCINE. SOCIAL HISTORY: He denies use of alcohol, tobacco, or illicit drugs. 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 REVIEW OF SYSTEMS: Otherwise is detailed above, however, he denies any severe headache, visual disturbances, amaurosis fugax, cough, wheezing, chest pain, shortness of breath, paroxysmal nocturnal dyspnea, edema, nausea, vomiting, constipation, or diarrhea. He does have some mild expressive aphasia at times and considerable short-term memory issues. A CT taken at time of admission showed diffuse small vessel disease. MEDICATIONS: At time of my evaluation include: 1. Lasix. 2. Warfarin. 3. Insulin. 4. Piperacillin. 5. Tazobactam. 6. Allopurinol. 7. Atorvastatin. 8. Amlodipine. 9. Carvedilol. 10. Flexeril. 11. Gabapentin. 12. Hydrocodone. 13. Levothyroxine. 14. Reglan. PHYSICAL EXAMINATION: Revealed a mildly obese, somewhat disheveled-appearing, 71-year-old, white male who was alert and oriented x3, and was able to answer simple questions. His remote memory is intact, however, his recent memory is somewhat sketchy. His blood pressure was 178/81 with a pulse rate of 80. HEENT examination is remarkable for pale sclerae. Neck is supple without adenopathy, thyromegaly or jugular venous distention. Lungs are clear to auscultation. Heart was regular and rhythmical with a soft systolic murmur. Abdomen is soft, without any tenderness, rebound, guarding, masses or hepatosplenomegaly. Extremities do not show any evidence of any clubbing, cyanosis, or edema. He is missing his right great toe and there is black eschar on top of that. LABORATORY EXAMINATION: This morning, his white count is 10.5, hemoglobin of 8.6, hematocrit 27.6. Red cell indices, platelet count and differential were normal. Sed rate was greater than 140. This morning his sodium is 140, potassium 4.7, chloride of 99, bicarbonate 21, BUN and creatinine were 43 and 2.19, his albumin is 2.6, uric acid is 5.0 and his last hemoglobin A1c was 8.9. Renal ultrasound showed a left exophytic simple renal cyst. Otherwise, his renal ultrasound is unremarkable. IMPRESSION: 1. Chronic kidney disease, stage 3. 2. Diabetic nephropathy. 3. Hypertension with hypertensive heart disease and hypertensive nephrosclerosis. 4. Type 4 renal tubular acidosis. RECOMMENDATION: I would like to obtain a serum protein electrophoresis along with an DENISE and a rheumatoid factor in light of his history of psoriatic arthritis. I would also like to obtain a urine for protein/creatinine ratio. I would also like to address his blood pressures and I would like to go ahead and start him on lisinopril 10 mg at bedtime. Once again, I would like to thank you for allowing me to participate in the care of this most pleasant and interesting patient. I will be following him closely with you.
[2017-01-19] MEDS: Sodium Chloride LOK Flush 10 mL Syringe IVFLUSH SCH ×3 (00:30→16:20)
[2017-01-19] MEDS: Piperacillin-Tazo 3.375 Gm Inj 3.375 GM in Dextrose 5% Minibag Plus 50 ML IV SCH ×3 (01:52→16:19)
--- NOTE | 2017-01-19 02:10 | NUR ---
Lethargy Pt remains in bed, wakes up disoriented to time. States no pain. Wound vac intact to R foot. Monitor CS closely to prevent hypoglycemia. Pt 145 at HS and offered snack or juice with lantus. LS some crackles, audible in upper airway and pt cannot cough and clear. SaO2 90%+ on RA. CPOX in place. Care continues
[2017-01-19 05:18] VITALS: BP 124/77; PULSE 92; O2SAT 98
[2017-01-19 05:55] LABS: BASOPHILS % (AUTO) 1.1 % (0-3); EOSINOPHILS % (AUTO) 5.4 % (0-5); MONOCYTES % (AUTO) 8.8 % (4-12); Mean Corpuscular Hemoglobin 29.7 pg (27.0-35.0); Mean Corpuscular Volume 92.5 fL (81-100); NEUTROPHILS % (AUTO) 69.2 % (40-74); Platelet Count 326 bil/L (150-400)
[2017-01-19 05:58] LABS: INR 1.29 ratio
[2017-01-19 06:22] LABS: Magnesium 2.5 mg/dL (1.6-2.6)
[2017-01-19] MEDS: Insulin LISPRO 300 Unit/3 mL Inj SUBQ SCH ×7 (07:30→21:28)
[2017-01-19 08:22] VITALS: BP 173/74; PULSE 66; RESP 18; O2SAT 98
[2017-01-19] MEDS: Insulin GLARgine 100 Unit/mL Syringe SUBQ SCH ×2 (10:00→21:26)
[2017-01-19 12:04] VITALS: BP 170/72; PULSE 56; RESP 18; O2SAT 94
--- NOTE | 2017-01-19 13:09 | NUR ---
NUTRITION FOLLOW-UP: ASSESS: 71 YO M admitted for hypoglycemia and multiple falls. He is being followed by podiatry. He is s/p 2nd ray amputation, excision of the 1st metatarsal head and debridement of diabetic foot infection and abscess and POD 4 for rt foot debridement. Wound Vac is on rt foot. PO has been good at 100% of most meals on heart healthy/ diabetic diet. PMHX: DM, HTN, foot ulcer, CAD LABS: Reviewed. 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 Insulin, Coumadin, Lasix, Senna, Miralax. GI: BM x 1 (01/18) SKIN: dionte 16, podiatry following for foot wounds. Osteomyelitis/cellulitis of R foot. CURRENT WT: 114.1 kg, BMI 38.2 kg/m2, admit wt 98.2 kg, IBW 70 kg DIET: HH/CC, PO intake 100% ESTIMATED NEEDS: healing, BMI Calories: 7743-0993 kcal/day (22-25 kcal/kg BW) Protein: 85-105 g/day (1.2-1.5 g/kg IBW) NUTRITION DIAGNOSIS: 1.) Increased kcal/pro needs related to increased nutrient needs for healing as evidence by multiple foot wounds/surgery.-IMPROVING NUTRITION INTERVENTION: 1.) Continue current diet. PO is adequate for needs 2.) Inpatient DM diet education provided 01/07- pt is already signed up for oupt DM education 3.) Continue vanilla Glucerna on L tray. MONITOR/EVALUATE: PO intake, wounds, labs, wt, POC, GI/nutrition status. Follow per moderate nutrition risk guidelines.
--- NOTE | 2017-01-19 13:12 | PCM.PNNEPH ---
Subjective Date of Service Jan 19, 2017 Subjective The patient's son about the same. His renal function is unchanged however his blood pressure remains elevated. In the last 24 hours she has had 2022 in and 1300 out. This morning his hemoglobin A1c 0.3, sodium 140, potassium 6.0, chloride 106, bicarbonate 20, BUN and creatinine were 42 and 2.0 respectively. He continues to have significant memory issues. Exam Vital Signs Vital Sign - Last Date Time Temp Pulse Resp B/P Pulse Ox O2 Delivery O2 Flow Rate FiO2 01/19/17 12:04 37.0 56 18 170/72 94 Room Air 01/19/17 08:22 2.00 Intake and Output 01/18/17 01/18/17 01/19/17 Cumulative From/Thru 15:00 23:00 07:00 01/03/17 11:59 - 01/19/17 05:17 Intake Total 1222 ml 700 ml 59471 ml Output Total 600 ml 1800 ml 14696 ml Balance 622 ml -1100 ml 12017 ml Intake Oral 1073 ml 700 ml 80775 ml IV Total 149 ml 18852 ml TPN/PPN 100 ml Output Urine Total 600 ml 1800 ml 14178 ml Estimated Blood Loss 30 ml # Voids 8 # Bowel Movements 0 0 8 Exam Neck is supple without adenopathy, thyromegaly, or jugular venous distention. Lungs are clear to auscultation though somewhat diminished. Heart is regular and rhythmical with a soft systolic murmur. Abdomen is soft without any tenderness rebound guarding masses or hepatosplenomegaly. Extremities do not show any evidence of any clubbing, cyanosis, or edema. Skin turgor is good. Lab and Diagnostics Result Diagram: 01/19/1752901/19/17529 Microbiology Specimen: [id number] Collected: 01/03/17 Status: COMP Req#: [id number] Received: 01/03/17 Source: BLOOD Sp Desc : KYLER Nichols Dr: Nader Gordon MD Ordered: ARTHUR Comments: Collected by Nurse/Unit? Y/N N Procedure Result Verified Site Microbiology JAYDE CULTURE BLOOD Final 01/06/17-0700 Organism 1 STAPHYLOCOCCUS AUREUS GRAM STAIN RESULT GRAM POSITIVE COCCI ?STAPH BC BOTTLE Isolated from Aerobic Bottle of Set Drawn DATE CALLED: 01/04/17 TIME CALLED: 0631 CALLED BY: SIA FLOOR/DOCTOR: WAQAS Gipson BC READ BACK Y TYPE OF DRAW NURSE COLLLECT TYPE NOT SPECIFIED TIME OF POSITIVITY 0600 GRAM STAIN RESULT GRAM POSITIVE COCCI ?STAPH BC BOTTLE2 Isolated from Anaerobic Bottle of Set Drawn DATE CALLED: 01/04/17 TIME CALLED: 1112 CALLED BY: SIA FLOOR/DOCTOR: BHANU Yarbrough BC READ BACK Y TYPE OF DRAW NURSE COLLECT TYPE NOT INDICATED TIME OF POSITIVITY 1050 STAPHYLOCOCCUS AUREUS Oxacillin Susceptible Penicillin Resistant Staph spp. are Susceptible to Penicillin stable penicillins, Blactam/Blactamase inhibitor combinations, antistaphyloccal cephems, and carbapenems. ISOLATED FROM FOUR OF FOUR BOTTLES COLLECTED 01/03/17. 1. STAPHYLOCOCCUS AUREUS M.I.C Interp --------- ------ * CEFAZOLIN S * CLINDAMYCIN <=0.25 S * ERYTHROMYCIN <=0.25 S CONTINUED ON NEXT PAGE RUN DATE: 01/06/17 [facility] LIVE PAGE 2 RUN TIME: 0700 Specimen Inquiry PHYSICIAN Patient: DARA OLIVAS [id number] (Continued) Specimen: [id number] Collected: 01/03/17 Received: 01/03/17 (Continued) Procedure Result Verified Site JAYDE CULTURE BLOOD Final (continued) 01/06/17-699 1. STAPHYLOCOCCUS AUREUS (continued) M.I.C Interp --------- ------ * LINEZOLID 2 S * MOXIFLOXACIN <=0.25 S * OXACILLIN JAYDE 0.5 S * RIFAMPIN <=0.5 S * TETRACYCLINE <=1 S * TRIMETHOPRIM/SULFAMETHOXAZOLE <=10 S * VANCOMYCIN <=0.5 S Name: NEILJEANINEDARA Age/Sex: 71/M Attend Dr: Luigi Arrieta MD Acct: [id number] Unit: [id number] Status: ADM IN Location: [facility] [place] 1008-1 Re01/03/17 Disch: Specimen: [id number] Collected: 01/05/17 Status: COMP Req#: [id number] Received: 01/05/17 Source: FOOT Sp Desc : Subm Dr: Jeanne Key DPM Ordered: CS & ANAC & Comments: Collected by Nurse/Unit? Y/N Y Comment: RIGHT FOOT, DEEP CULTURE Procedure Result Verified Site Microbiology JAYDE GS (GRAM STAIN) Final 01/05/17-2032 GRAM STAIN RESULT NO POLYS SEEN FEW GRAM POS COCCI JAYDE CULT AEROBIC Final 01/12/17 Organism 1 STAPHYLOCOCCUS AUREUS COLONY COUNT/QUANTITY HEAVY GROWTH Oxacillin Susceptible Penicillin Resistant Staph spp. are Susceptible to Penicillin stable penicillins, Blactam/Blactamase inhibitor combinations, antistaphyloccal cephems, and carbapenems. 1. STAPHYLOCOCCUS AUREUS M.I.C Interp --------- ------ * CEFAZOLIN S * CLINDAMYCIN <=0.25 S * ERYTHROMYCIN <=0.25 S * LINEZOLID 2 S * MOXIFLOXACIN <=0.25 S * OXACILLIN JAYDE 0.5 S * RIFAMPIN <=0.5 S * TETRACYCLINE <=1 S * TRIMETHOPRIM/SULFAMETHOXAZOLE <=10 S * VANCOMYCIN <=0.5 S ANAEROBIC CULTURE Final 01/12/17 No anaerobes isolated Laboratory Tests 72 Hours Test 01/06/17 19:59 01/07/17 03:10 01/08/17 03:00 01/09/17 02:55 Urine Color Yellow (YELLOW) Urine Appearance Hazy (CLEAR,HAZY) Urine pH 5.0 (5.0-8.0) Urine Specific [place] 1.020 (1.003-1.035) Urine Protein 30mg/dL (NEG,TRACE) Urine Glucose (UA) Negativemg/dL (NEGATIVE) Urine Ketones Negativemg/dL (NEGATIVE) Urine Occult Blood Small (NEGATIVE) Urine Nitrite Negative (NEGATIVE) Urine Bilirubin Negative (NEGATIVE) Urine Urobilinogen Normalmg/dL (NORMAL) Urine Leukocyte Esterase Negative (NEGATIVE) Urine RBC 0-2/hpf (0-2) Urine WBC 0-5/hpf (0-5) Urine Epithelial Cells Occasional/hpf (NONE-MOD) Urine Crystals Amorphous urates (NONE Urine Bacteria None/hpf (NONE-FEW) Urine Hyaline Casts None/lpf (NONE) Urine Granular Casts None seen (NONE SEEN) Urine Waxy Casts None seen (NONE SEEN) Urine Red Blood Cell Casts None seen (NONE SEEN) Urine White Blood Cell Casts None seen (NONE SEEN) Urine Mucus None seen (None Seen) Urine Trichomonas None seen (NONE SEEN) Urine Yeast None (NONE SEEN) Urinalysis Comment None Urine Culture Reflexed Not indicated White Blood Count 10.0th/mm3 (3.8-10.1) 10.9th/mm3 (3.8-10.1) 9.6th/mm3 (3.8-10.1) Red Blood Count 3.44mil/mm3 (4.40-5.80) 3.50mil/mm3 (4.40-5.80) 3.28mil/mm3 (4.40-5.80) Hemoglobin 10.2g/dL (13.8-17.2) 10.4g/dL (13.8-17.2) 9.5g/dL (13.8-17.2) Hematocrit 31.7% (41.0-50.0) 31.8% (41.0-50.0) 29.7% (41.0-50.0) Mean Corpuscular Volume 92.2fL (81-100) 90.9fL (81-100) 90.5fL (81-100) Mean Corpuscular Hemoglobin 29.7pg (27.0-35.0) 29.7pg (27.0-35.0) 29.0pg (27.0-35.0) Mean Corpuscular Hemoglobin Concent 32.2% (32.0-37.0) 32.7% (32.0-37.0) 32.0% (32.0-37.0) Red Cell Distribution Width 15.3% (12.3-15.4) 14.9% (12.3-15.4) 14.9% (12.3-15.4) Platelet Count 208bil/L (150-400) 287bil/L (150-400) 312bil/L (150-400) Neutrophils (%) (Auto) 73.2% (40-74) 77.9% (40-74) 74.0% (40-74) Lymphocytes (%) (Auto) 11.4% (14-46) 9.2% (14-46) 12.4% (14-46) Monocytes (%) (Auto) 12.6% (4-12) 10.9% (4-12) 11.5% (4-12) Eosinophils (%) (Auto) 2.2% (0-5) 1.3% (0-5) 1.6% (0-5) Basophils (%) (Auto) 0.1% (0-3) 0.2% (0-3) 0.1% (0-3) Prothrombin Time 38.9sec (8.1-12.5) 38.7sec (8.1-12.5) 43.1sec (8.1-12.5) Prothromb Time International Ratio 3.54ratio 3.53ratio 3.92ratio Sodium Level 134mEq/L (134-144) 133mEq/L (134-144) 136mEq/L (134-144) Potassium Level 4.8mEq/L (3.5-5.2) 4.7mEq/L (3.5-5.2) 4.4mEq/L (3.5-5.2) Chloride Level 102mEq/L (97-108) 102mEq/L (97-108) 106mEq/L (97-108) Carbon Dioxide Level 19mmol/L (18-29) 18mmol/L (18-29) 19mmol/L (18-29) Blood Urea Nitrogen 53mg/dL (8-27) 50mg/dL (8-27) 52mg/dL (8-27) Creatinine 1.83mg/dL (0.76-1.27) 1.79mg/dL (0.76-1.27) 1.75mg/dL (0.76-1.27) Estimat Glomerular Filtration Rate 39mL/min (>59) 40mL/min (>59) 41mL/min (>59) Glucose Level 348mg/dL (60-99) 273mg/dL (60-99) 247mg/dL (60-99) Calcium Level 7.9mg/dL (8.5-10.1) 8.0mg/dL (8.5-10.1) 7.9mg/dL (8.5-10.1) Procalcitonin 3.58ng/mL (0.00-0.08) 3.22ng/mL (0.00-0.08) X-Rays, CTs and MRIs PROCEDURE: X-RAY RIGHT FOOT COMPLETE, MINIMUM THREE VIEWS ([id number]) INDICATIONS: POST SURGERY ON RIGHT FOOT TECHNIQUE: 3 views of the foot were acquired. COMPARISON: 01/05/2017 FINDINGS: Bones: First and second metatarsals amputations show mild bony resorption at the end of the bony stumps. Margins appear sharp or on the lateral projection. Soft tissues: Postoperative changes of the soft tissues show interval improvement with diminished swelling and artifact. IMPRESSION: Expected postoperative changes with progression since last exam. Dictated by: Olman Sim M.D. on 01/15/2017 at 16:27 Approved by: Olman Sim M.D. on 01/15/2017 at 16:30 CT brain 1. No acute intracranial abnormalities. 2. Cerebral volume loss and chronic microvascular ischemic change Dictated by: Milton Bardales M.D. on 01/03/2017 at 12:54 Chest x-ray IMPRESSION: No acute cardiopulmonary disease. Dictated by: Milton Bardales M.D. on 01/03/2017 at 13:55 Venous duplex IMPRESSION: No deep venous thrombosis in the right lower extremity. Dictated by: Milton Bardales M.D. on 01/03/2017 at 12:40 01/04 PROCEDURE: X-RAY RIGHT FOOT COMPLETE, MINIMUM THREE VIEWS ([id number]) IMPRESSION: Worsening osteomyelitis involving the first metatarsal head with gas within the adjacent soft tissues as well as throughout the dorsal aspect of the soft tissues. Although the gas may be related to recent instrumentation, developing necrotizing fasciitis cannot be excluded and clinical correlation and followup is recommended. Dr. Key given results at 1108 hours on 01/05/2017. Dictated by: Sung VELAZCO Interpreted: Rhona Paige MD on 01/05/2017 at 10:56 01/05 PROCEDURE: X-RAY RIGHT FOOT COMPLETE, MINIMUM THREE VIEWS ([id number]) IMPRESSION: Interval postoperative changes of the right forefoot as described. No radiopaque foreign bodies. Dictated by: Ronal Galindo M.D. on 01/05/2017 at 15:58 01/06 PROCEDURE: US RENAL SONOGRAM 1. Left renal inferior exophytic cyst otherwise normal kidneys. 2. 707 cc prevoid urinary volume and postvoid residual cannot be assessed. Cardiac Echo Impressions Last echo 04/06/16 Interpretation Summary Left ventricular wall thickness is mild-moderately increased. Assessment of diastolic parameters indicates a relaxation abnormality of the left ventricle, consistent with normal filling pressures. The right ventricle is normal in size and function. Pulmonary artery pressures cannot be estimated because of the lack of a measurable TR jet velocity. Both atria are normal in size. There is no significant valvular heart disease. The aortic root is normal size. The aortic arch is normal in size. TTE 01/05/17 The study quality was technically difficult. A contrast injection of Definity was performed to improve assessment of LV function. Left ventricular ejection fraction is estimated to be 50%. Apical hypokinesis is suspected, LVEF is slightly lower on this exam. The right ventricle is normal size. Right ventricular systolic function is mildly reduced. The right ventricular systolic pressure is estimated at 25 mmHg assuming a right atrial pressure of 8 mm Hg. In an off axis view there is an echodensity along the superior aspect of the IAS, this could be an artifact. A [place] can hlep elucidate this further, or a limited echo to re evaluate the RA may be requested. [place] 01/07/17 The left ventricular ejection fraction is grossly normal. The interatrial septum is intact with no evidence for an atrial septal defect. No evidence of endocarditis. No mass seen in RA, TTE finding was artifactual. Plan Impression Impression #1 chronic kidney disease stage III number to diabetic nephropathy # 3 hypertension with hypertensive heart disease and hypertensive nephrosclerosis number for type IV renal tubular acidosis Recommendations #1 I would like to add chlorthalidone 25 mg to his medication regime. Sodium Bicarbonate 650 Mg Twice a Day for His Metabolic Acidosis. We Need to Continue to Follow His Lab and Blood Pressures. Anirudh Land DO Jan 19, 2017 13:12
--- NOTE | 2017-01-19 14:37 | NUR ---
Social Work- Readiness for Discharge/Multi-Disciplinary Rounds Data: EMR reviewed. Pt is on day 16 of hospitalization. Per multi-disciplinary rounds, Pt is not medically stable for discharge. Nephrology is following. MD is hopeful that pt will discharge tomorrow or the next day. Pt will require IV Zosyn until February 14, wound care and a wound vac at SNF, and PT to continue to strengthen pt and reinforce precautions. SW placed call to [facility] to update them regarding discharge plan and needs at discharge, left message informing them of above needs. SW awaits return confirmation call. Pt continues to be agreeable to discharge plan. Paperwork is in chart. PASRR SW will continue to follow. Assessment: Pt for whom SNF is medically necessary. Plan: SW placed call to [facility] to update them regarding discharge plan and needs at discharge, left message informing them of above needs. SW awaits return confirmation call. Pt continues to be agreeable to discharge plan. SW will continue to follow. Paperwork and PASRR are in chart. Kate Hunt MSW
--- NOTE | 2017-01-19 15:54 | PCM.PNMED ---
Subjective Date of Service Jan 19, 2017 Exam Vital Signs Vital Sign - Last Date Time Temp Pulse Resp B/P Pulse Ox O2 Delivery O2 Flow Rate FiO2 01/19/17 12:04 37.0 56 18 170/72 94 Room Air 01/19/17 08:22 2.00 Intake and Output 01/18/17 01/18/17 01/19/17 Cumulative From/Thru 15:00 23:00 07:00 01/03/17 11:59 - 01/19/17 05:17 Intake Total 1222 ml 700 ml 04710 ml Output Total 600 ml 1800 ml 62711 ml Balance 622 ml -1100 ml 57684 ml Intake Oral 1073 ml 700 ml 80199 ml IV Total 149 ml 20595 ml TPN/PPN 100 ml Output Urine Total 600 ml 1800 ml 87023 ml Estimated Blood Loss 30 ml # Voids 8 # Bowel Movements 0 0 8 Exam General: Patient is an no apparent distress at this time. He is in the process of transferring from the bed to bedside chair with physical therapy during my interview and exam. Patient has difficulty not putting weight on his right foot. However he was able to transfer to the chair without too much difficulty with assistance from the physical therapist and using a walker. HEENT: Head is atraumatic and normocephalic. Eyes: Pupils are equally round and reactive to light and accommodation. Extraocular muscles are intact. Sclera are white, anicteric. Subconjunctival mucosa is pink. Ears and nose are unremarkable. Oropharynx: There is no mucosal lesions, there is no thrush, there is no pharyngitis. Neck: Is supple, there are no nodes, or masses or tenderness. Chest: Is clear to auscultation and percussion. There are no rales, rhonchi, wheezes or rubs. Heart: Rate, rhythm is regular. There is no murmur, rub or gallop. Abdomen: Good bowel sounds are present. Abdomen is soft, nontender, no organomegaly or masses were appreciated. Extremities: The right foot is in a postoperative wrap with a wound VAC in place. There is minimal to no surrounding cellulitis. The left foot is in an Raymond wrap placed by the wound care team today. There is no strike through bleeding. Neurologic: There are no focal neurological deficits. Cranial nerves II through XII are intact. There are no sensory or motor deficits. Patient is much more awake and alert today. Psychiatric: Patients mood is calm and shows no sign of agitation. Genital: Deferred Rectal: Deferred Lab and Diagnostics Result Diagram: 01/19/1752901/19/17529 Microbiology Specimen: [id number] Collected: 01/03/17 Status: CATRACHITO Warner#: [id number] Received: 01/03/17-1242 Source: BLOOD Sp Desc : AA Subm Dr: Nader Gordon MD Ordered: Comments: Collected by Nurse/Unit? Y/N N Procedure Result Verified Site Microbiology JAYDE CULTURE BLOOD Final 01/06/17-0700 Organism 1 STAPHYLOCOCCUS AUREUS GRAM STAIN RESULT GRAM POSITIVE COCCI ?STAPH BC BOTTLE Isolated from Aerobic Bottle of Set Drawn DATE CALLED: 01/04/17 TIME CALLED: 0631 CALLED BY: SIA FLOOR/DOCTOR: WAQAS Gipson BC READ BACK Y TYPE OF DRAW NURSE COLLLECT TYPE NOT SPECIFIED TIME OF POSITIVITY 0600 GRAM STAIN RESULT GRAM POSITIVE COCCI ?STAPH BC BOTTLE2 Isolated from Anaerobic Bottle of Set Drawn DATE CALLED: 01/04/17 TIME CALLED: 1112 CALLED BY: SIA FLOOR/DOCTOR: BHANU Yarbrough BC READ BACK Y TYPE OF DRAW NURSE COLLECT TYPE NOT INDICATED TIME OF POSITIVITY 1050 STAPHYLOCOCCUS AUREUS Oxacillin Susceptible Penicillin Resistant Staph spp. are Susceptible to Penicillin stable penicillins, Blactam/Blactamase inhibitor combinations, antistaphyloccal cephems, and carbapenems. ISOLATED FROM FOUR OF FOUR BOTTLES COLLECTED 01/03/17. 1. STAPHYLOCOCCUS AUREUS M.I.C Interp --------- ------ * CEFAZOLIN S * CLINDAMYCIN <=0.25 S * ERYTHROMYCIN <=0.25 S CONTINUED ON NEXT PAGE RUN DATE: 01/06/17 [facility] LIVE PAGE 2 RUN TIME: 0700 Specimen Inquiry PHYSICIAN Patient: DARA OLIVAS [id number] (Continued) Specimen: [id number] Collected: 01/03/17-1220 Received: 01/03/17-124 (Continued) Procedure Result Verified Site JAYDE CULTURE BLOOD Final (continued) 01/06/17-699 1. STAPHYLOCOCCUS AUREUS (continued) M.I.C Interp --------- ------ * LINEZOLID 2 S * MOXIFLOXACIN <=0.25 S * OXACILLIN JAYDE 0.5 S * RIFAMPIN <=0.5 S * TETRACYCLINE <=1 S * TRIMETHOPRIM/SULFAMETHOXAZOLE <=10 S * VANCOMYCIN <=0.5 S Name: DARA OLIVAS Age/Sex: 71/M Attend Dr: Luigi Arrieta MD Acct: [id number] Unit: [id number] Status: ADM IN Location: [facility] 1008-1 Re01/03/17 Disch: Specimen: [id number] Collected: 01/05/17 Status: CATRACHITO Req#: [id number] Received: 01/05/17 Source: FOOT Sp Desc : Subm Dr: Jeanne Key DPM Ordered: CS & ANAC & GS Comments: Collected by Nurse/Unit? Y/N Y Comment: RIGHT FOOT, DEEP CULTURE Procedure Result Verified Site Microbiology JAYDE GS (GRAM STAIN) Final 01/05/17 GRAM STAIN RESULT NO POLYS SEEN FEW GRAM POS COCCI JAYDE CULT AEROBIC Final 01/12/17 Organism 1 STAPHYLOCOCCUS AUREUS COLONY COUNT/QUANTITY HEAVY GROWTH Oxacillin Susceptible Penicillin Resistant Staph spp. are Susceptible to Penicillin stable penicillins, Blactam/Blactamase inhibitor combinations, antistaphyloccal cephems, and carbapenems. 1. STAPHYLOCOCCUS AUREUS M.I.C Interp --------- ------ * CEFAZOLIN S * CLINDAMYCIN <=0.25 S * ERYTHROMYCIN <=0.25 S * LINEZOLID 2 S * MOXIFLOXACIN <=0.25 S * OXACILLIN JAYDE 0.5 S * RIFAMPIN <=0.5 S * TETRACYCLINE <=1 S * TRIMETHOPRIM/SULFAMETHOXAZOLE <=10 S * VANCOMYCIN <=0.5 S ANAEROBIC CULTURE Final 01/12/17 No anaerobes isolated Laboratory Tests 72 Hours Test 01/06/17 19:59 01/07/17 03:10 01/08/17 03:00 01/09/17 02:55 Urine Color Yellow (YELLOW) Urine Appearance Hazy (CLEAR,HAZY) Urine pH 5.0 (5.0-8.0) Urine Specific [place] 1.020 (1.003-1.035) Urine Protein 30mg/dL (NEG,TRACE) Urine Glucose (UA) Negativemg/dL (NEGATIVE) Urine Ketones Negativemg/dL (NEGATIVE) Urine Occult Blood Small (NEGATIVE) Urine Nitrite Negative (NEGATIVE) Urine Bilirubin Negative (NEGATIVE) Urine Urobilinogen Normalmg/dL (NORMAL) Urine Leukocyte Esterase Negative (NEGATIVE) Urine RBC 0-2/hpf (0-2) Urine WBC 0-5/hpf (0-5) Urine Epithelial Cells Occasional/hpf (NONE-MOD) Urine Crystals Amorphous urates (NONE Urine Bacteria None/hpf (NONE-FEW) Urine Hyaline Casts None/lpf (NONE) Urine Granular Casts None seen (NONE SEEN) Urine Waxy Casts None seen (NONE SEEN) Urine Red Blood Cell Casts None seen (NONE SEEN) Urine White Blood Cell Casts None seen (NONE SEEN) Urine Mucus None seen (None Seen) Urine Trichomonas None seen (NONE SEEN) Urine Yeast None (NONE SEEN) Urinalysis Comment None Urine Culture Reflexed Not indicated White Blood Count 10.0th/mm3 (3.8-10.1) 10.9th/mm3 (3.8-10.1) 9.6th/mm3 (3.8-10.1) Red Blood Count 3.44mil/mm3 (4.40-5.80) 3.50mil/mm3 (4.40-5.80) 3.28mil/mm3 (4.40-5.80) Hemoglobin 10.2g/dL (13.8-17.2) 10.4g/dL (13.8-17.2) 9.5g/dL (13.8-17.2) Hematocrit 31.7% (41.0-50.0) 31.8% (41.0-50.0) 29.7% (41.0-50.0) Mean Corpuscular Volume 92.2fL (81-100) 90.9fL (81-100) 90.5fL (81-100) Mean Corpuscular Hemoglobin 29.7pg (27.0-35.0) 29.7pg (27.0-35.0) 29.0pg (27.0-35.0) Mean Corpuscular Hemoglobin Concent 32.2% (32.0-37.0) 32.7% (32.0-37.0) 32.0% (32.0-37.0) Red Cell Distribution Width 15.3% (12.3-15.4) 14.9% (12.3-15.4) 14.9% (12.3-15.4) Platelet Count 208bil/L (150-400) 287bil/L (150-400) 312bil/L (150-400) Neutrophils (%) (Auto) 73.2% (40-74) 77.9% (40-74) 74.0% (40-74) Lymphocytes (%) (Auto) 11.4% (14-46) 9.2% (14-46) 12.4% (14-46) Monocytes (%) (Auto) 12.6% (4-12) 10.9% (4-12) 11.5% (4-12) Eosinophils (%) (Auto) 2.2% (0-5) 1.3% (0-5) 1.6% (0-5) Basophils (%) (Auto) 0.1% (0-3) 0.2% (0-3) 0.1% (0-3) Prothrombin Time 38.9sec (8.1-12.5) 38.7sec (8.1-12.5) 43.1sec (8.1-12.5) Prothromb Time International Ratio 3.54ratio 3.53ratio 3.92ratio Sodium Level 134mEq/L (134-144) 133mEq/L (134-144) 136mEq/L (134-144) Potassium Level 4.8mEq/L (3.5-5.2) 4.7mEq/L (3.5-5.2) 4.4mEq/L (3.5-5.2) Chloride Level 102mEq/L (97-108) 102mEq/L (97-108) 106mEq/L (97-108) Carbon Dioxide Level 19mmol/L (18-29) 18mmol/L (18-29) 19mmol/L (18-29) Blood Urea Nitrogen 53mg/dL (8-27) 50mg/dL (8-27) 52mg/dL (8-27) Creatinine 1.83mg/dL (0.76-1.27) 1.79mg/dL (0.76-1.27) 1.75mg/dL (0.76-1.27) Estimat Glomerular Filtration Rate 39mL/min (>59) 40mL/min (>59) 41mL/min (>59) Glucose Level 348mg/dL (60-99) 273mg/dL (60-99) 247mg/dL (60-99) Calcium Level 7.9mg/dL (8.5-10.1) 8.0mg/dL (8.5-10.1) 7.9mg/dL (8.5-10.1) Procalcitonin 3.58ng/mL (0.00-0.08) 3.22ng/mL (0.00-0.08) X-Rays, CTs and MRIs PROCEDURE: X-RAY RIGHT FOOT COMPLETE, MINIMUM THREE VIEWS ([id number]) INDICATIONS: POST SURGERY ON RIGHT FOOT TECHNIQUE: 3 views of the foot were acquired. COMPARISON: 01/05/2017 FINDINGS: Bones: First and second metatarsals amputations show mild bony resorption at the end of the bony stumps. Margins appear sharp or on the lateral projection. Soft tissues: Postoperative changes of the soft tissues show interval improvement with diminished swelling and artifact. IMPRESSION: Expected postoperative changes with progression since last exam. Dictated by: Olman Sim M.D. on 01/15/2017 at 16:27 Approved by: Olman Sim M.D. on 01/15/2017 at 16:30 CT brain 1. No acute intracranial abnormalities. 2. Cerebral volume loss and chronic microvascular ischemic change Dictated by: Milton Bardales M.D. on 01/03/2017 at 12:54 Chest x-ray IMPRESSION: No acute cardiopulmonary disease. Dictated by: Milton Bardales M.D. on 01/03/2017 at 13:55 Venous duplex IMPRESSION: No deep venous thrombosis in the right lower extremity. Dictated by: Milton Bardales M.D. on 01/03/2017 at 12:40 01/04 PROCEDURE: X-RAY RIGHT FOOT COMPLETE, MINIMUM THREE VIEWS ([id number]) IMPRESSION: Worsening osteomyelitis involving the first metatarsal head with gas within the adjacent soft tissues as well as throughout the dorsal aspect of the soft tissues. Although the gas may be related to recent instrumentation, developing necrotizing fasciitis cannot be excluded and clinical correlation and followup is recommended. Dr. Key given results at 1108 hours on 01/05/2017. Dictated by: Sung Tejada [facility] Interpreted: Rhona Paige MD on 01/05/2017 at 10:56 01/05 PROCEDURE: X-RAY RIGHT FOOT COMPLETE, MINIMUM THREE VIEWS ([id number]) IMPRESSION: Interval postoperative changes of the right forefoot as described. No radiopaque foreign bodies. Dictated by: Ronal Galindo M.D. on 01/05/2017 at 15:58 01/06 PROCEDURE: US RENAL SONOGRAM 1. Left renal inferior exophytic cyst otherwise normal kidneys. 2. 707 cc prevoid urinary volume and postvoid residual cannot be assessed. Cardiac Echo Impressions Last echo 04/06/16 Interpretation Summary Left ventricular wall thickness is mild-moderately increased. Assessment of diastolic parameters indicates a relaxation abnormality of the left ventricle, consistent with normal filling pressures. The right ventricle is normal in size and function. Pulmonary artery pressures cannot be estimated because of the lack of a measurable TR jet velocity. Both atria are normal in size. There is no significant valvular heart disease. The aortic root is normal size. The aortic arch is normal in size. TTE 01/05/17 The study quality was technically difficult. A contrast injection of Definity was performed to improve assessment of LV function. Left ventricular ejection fraction is estimated to be 50%. Apical hypokinesis is suspected, LVEF is slightly lower on this exam. The right ventricle is normal size. Right ventricular systolic function is mildly reduced. The right ventricular systolic pressure is estimated at 25 mmHg assuming a right atrial pressure of 8 mm Hg. In an off axis view there is an echodensity along the superior aspect of the IAS, this could be an artifact. A VIRGINIA can hlep elucidate this further, or a limited echo to re evaluate the RA may be requested. V[place]IA 01/07/17 The left ventricular ejection fraction is grossly normal. The interatrial septum is intact with no evidence for an atrial septal defect. No evidence of endocarditis. No mass seen in RA, TTE finding was artifactual. Assessment & Plan 71-year-old male with recent amputation of his right big toe and insulin- dependent diabetes who presents after being found down, with hypoglycemia and increased erythema of the right lower extremity consistent with cellulitis. Right foot cellulitis with osteomyelitis, present on admission, active -The patient had serial cultures+MSSA. s/p 2nd digit amputation, serial debridement by Dr. Key postop day #4 -Patient is status post debridment of infected soft tissue and bone, right foot , 01/15/17, postop day #4. Dr. Key performed further debridement today (please see her note). -We will continue Zosyn for now (the patient is s/p Zosyn since 01/04/17 till , Ancef from 01/08/[address] Edwards Recommendation, continue to 02/14/17, switched back to zosyn as clinically worsened). - I have discussed case with Dr. Edwards again today and appreciate his time and expertise. We will follow his recommendations. - We will check CBC to check white blood cell count and differential in a.m. - Pro calcitonin level remains elevated at 0.20 and sedimentation rate is greater than 140. Type 2 Diabetes with peripheral neuropathy, poa, active - The patient had a diabetic foot ulcer, Nephropathy and retinopathy; present on admission , A1c 8.9, - The patient's glucose is in target range with current regimen. - We will continue Lantus, which was increased to 20AM, 30 at night,added 5 units lispro TIDAC + high dose nutritional scale lispro. - We will continue to hold Victoza sq Hypertension, poa, stable -We have discontinued Losartan and spironolactone due to hyperkalemia, which has worsened again today. Dr. Land's input, time and expertise is greatly appreciated. He has added lisinopril 10 mg by mouth daily at bedtime. -We will continue Amlodipine 10 mg daily, Lasix 20 mg daily, -We have increased coreg from 12.5 mg daily to 12.5 bid - We will check electrolytes in a.m. Altered mental status and Delirium, resolved Patient had decline in mental function after VIR[place]IA. Mentation seemed to be declining as patient is unable to respond correctly where he was or what year it was. He also had some slurred speech. It should be restated that prior to admission, patient had fallen and stated he did hit his head on this head board and had his head wedged in between. Head CT at that time showed no acute intracranial abnormalities. - DDx: Included stroke secondary to hemorrhage, medication side effects of versed and also considering reduced clearance of versed due to poor kidney function, encephalitis. - Likely secondary to medication side effects, but given history, ordered stat CT head. - Head CT unremarkable. Will decrease pain medications, cluster nursing care, ask for frequent reorientation and make sure there is daylight in room during days. - In the afternoon of 01/09/17, evaluated patient and his mentation is back to baseline since first seen on 01/04/17. The AMS and delirium was likely medication related as patient was given fentanyl for pain, versed for VIR[place], flexiril for spasms. This happened within a short time period on top of poor kidney function. - The patient's mentation is now back to baseline Shortness of breath, resolved -Patient had increased coughing and shortness of breath 01/08/17. -Chest X-ray showed Bibasilar atelectasis versus aspiration or pneumonia. - Patient has been noted to be aspirating per speech evaluation and should have supervised PO intake. - Patient currently on Zosyn for osteomyelitis which will also treat aspiration pneumonitis - Acapella and Incentive spirometry has been ordered. - Recheck CBC periodically. Acute on chronic kidney injury; present on admission; Resolved - Baseline Cr 1.3-1.7. Due to Hypertensive nephrosclerosis and Diabetic nephropathy - Renal ultrasound showed Pre-void bladder volume is 778 mL. - Patient has Milton as of 01/06/17. Improved BUN and Cr afterwards. - We will continue to avoid nephrotoxic insults, monitor urine output - Fluids discontinued 01/08/17 - As no improvement in renal function we will ask nephrology to see. Dr. Land was kind enough to see the patient and appreciate his time and expertise. We will follow his recommendations. Lisinopril has been added 10 mg by mouth daily at bedtime. Persistent hyperkalemia, secondary to poor renal function and possibly continued need for IV antibiotics - We will give dose of Kayexalate today - We will repeat electrolytes in a.m. - We will continue off the spironolactone. - We will avoid any potassium supplements. Patient had orange juice this morning and and have recommended against any additional dietary potassium. Paroxysmal Atrial fibrillation on Coumadin; present on admission; stable - The patient was monitored on telemetry till 01/09/17. Patient out of A. fib for several days prior. - We will continue rate control with Carvedilol - Continue warfarin per pharmacy - Daily INR. Ordered 2 units FFP to reduce INR below 2 prior to I&D. Patient only recieved 1 unit. Held second unit after surgery on 01/05. Severe Sepsis - Resolved Secondary to RLE cellulitis and bacteremia found on admission. Patient on admission had leukocytosis of 24.3, tachycardia and tachypnea. Leukocytosis has been improving daily now down to 13.2. RLE very hot, erythematous and edematous , with fluctuant mass on base of RLE 1st digit. This has been improving throughout his admission with treatment initially on ancef and now on zosyn. Recent cultures in September show MSSA pansensitive. Nasal MRSA swab negative. Blood cultures have also been grown gram positive cocci likely to be staph aureus. - Patient no longer tachycardic or tachypneic. Leukocytosis is down to 12.3. - Appreciate Dr. Key consult and ID consult. - I/D done 01/[address] Key drained approximately 50 cc of pustular discharge. Patient had extensive debridement and amputation of right second toe in OR 01/05. She had further debridement again 01/18/2017. - Discontinued Ancef 01/05/17 - Continued zosyn, start date 01/04/17. Will transition to Ancef + Flagyl 01/[address] Edwards recommendation. Plan is for treatment of antibiotics for 6 weeks for osteomyelitis. - TTE showed EF of 50%, apical hypokineseis and an echodensity along the superior aspect of the IAS, which could be an artifact. V[place] would help elucidate this further. Per conversation with caridiologist, differential includes myxoma, so will proceed with VIR[place]IA for 01/07. - Follow CBC, BMP -Repeat procalcitonin trended down as above Hyperlipidemia - We will continue Atorvastatin 40 mg daily Acquired hypothyroidism - We will continue Synthroid 75 mcg daily Hypoglycemia, due to noncompliance; present on admission; Resolved - Pt has been without his glucometer; when obtained reading was "very high" likely due to above infection - Patient overdosed on Lantus, taking 2-3 times more than prescribed - Continue to monitor glucose Mild troponin elevation; present on admission; Resolved -Likely due to acute kidney injury -Now wnl Anion gap metabolic acidosis with lactic acidosis; present on admission; Resolved -Anion gap improved from 20 to 12, lactic acid trended to 1.0. - IV fluids were used initially when patient had limited PO intake. Acetaminophen for mild pain when necessary. Bowel regimen Senna and MiraLAX scheduled and PRN. Zofran when necessary for nausea and vomiting. SubQ heparin held for now. SCDs in place. High-risk medications: Warfarin Disposition: Hyperkalemia as the patient's most recent problem which needs to be corrected. Once corrected Patient will likely be transferred to a penitentiary facility in the next 24-48 hours. Pain Evaluation: Adequate Pain Control GI Prophylaxis: Not indicated VTE Prophylaxis: Theraputic Anticoag with Warfarin VTE Mechanical Devices: Intermittant Pneumatic CD Resuscitation Status: CPR: Attempt Resuscitation Stan Doe MD Jan 19, 2017 15:53
[2017-01-19 16:43] VITALS: BP 174/82; PULSE 77; RESP 18; O2SAT 95
[2017-01-19] MEDS: HYDROcodone-APAP 5-325 mg Tablet PO PRN (19:03)
[2017-01-19 19:58] VITALS: BP 165/77; PULSE 87; RESP 20; O2SAT 94
[2017-01-20] MEDS: Sodium Chloride LOK Flush 10 mL Syringe IVFLUSH SCH ×3 (00:30→16:26)
[2017-01-20] MEDS: Piperacillin-Tazo 3.375 Gm Inj 3.375 GM in Dextrose 5% Minibag Plus 50 ML IV SCH ×3 (00:53→16:31)
[2017-01-20 05:37] VITALS: BP 132/74; PULSE 73; RESP 17; O2SAT 98
[2017-01-20 05:37] LABS: BASOPHILS % (AUTO) 0.7 % (0-3); EOSINOPHILS % (AUTO) 3.7 % (0-5); MONOCYTES % (AUTO) 8.7 % (4-12); Mean Corpuscular Hemoglobin 29.4 pg (27.0-35.0); Mean Corpuscular Volume 94.5 fL (81-100); NEUTROPHILS % (AUTO) 67.3 % (40-74); Platelet Count 315 bil/L (150-400)
[2017-01-20 05:55] LABS: Magnesium 2.4 mg/dL (1.6-2.6)
[2017-01-20 05:59] LABS: INR 1.49 ratio
[2017-01-20] MEDS: Insulin GLARgine 100 Unit/mL Syringe SUBQ SCH ×2 (08:12→22:27)
[2017-01-20] MEDS: Insulin LISPRO 300 Unit/3 mL Inj SUBQ SCH ×9 (08:13→22:28)
[2017-01-20 08:30] VITALS: BP 192/83; PULSE 83; RESP 18; O2SAT 96
--- NOTE | 2017-01-20 12:46 | NUR ---
Wound Care Patient seen for wound care and dressing change, After patient was debrided by Dr Shahid LOGAN at bedside, NPWT was reapplied to right foot with white foam over tendon and exposed bone and black foam overall, pressure was brought up to 125 mmhg and continuous therapy with a good seal attained. Left plantar ulcer was cleaned with gauze and saline and redressed with silver based dressing and gauze and kerlix wrap with natalie wrap from toes to knee for edema. Will change dressings in 48 hours.
--- NOTE | 2017-01-20 13:16 | PROG NOTE ---
[address] [address] PROGRESS NOTE PATIENT: DARA OLIVAS : 1945 MR#: [id number] ADMIT: 01/03/2017 JOB ID: [id number] DATE: 01/20/2017 SUBJECTIVE: The patient seen for infected ulcer, right foot. The patient denies any pain in his foot, fever or chills. PHYSICAL EXAMINATION: Blood pressure 192/83, pulse 83, respirations 18, temperature is 36.6, pulse oximetry 96% on room air. Lower extremity examination: Wound VAC dressing is in place and the VAC is operating without problems. There is approximately 50 cc of serosanguineous drainage in the canister. There is increased granulation tissue within the wound base. The extensor hallucis longus and extensor digitorum longus exposed within the wound base. However, the amount of tendon exposure is slightly decreased from two days ago. The bone of the second and third metatarsal bases are exposed as well as the medial cuneiform and intermediate cuneiform which is slightly less around the cuneiform from two days ago. There is also decreased bone exposure at the third metatarsal head and neck. There is mild erythema and swelling around the wound margins. There is an area of ecchymosis and non blanchable tissue along the medial border of the wound. However, this is not increased from the previous visit. Neurovascular status is intact to remaining toes of the right foot. LABORATORY DATA: WBC 8.0, hemoglobin 8.6, hematocrit 27.7, platelets 315, neutrophils 67.3. Sodium 138, potassium 5.1, chloride 103, carbon monoxide 24, BUN 36, creatinine 1.91. Estimated GFR 37. Glucose 146. Total protein 5.5. Albumin 2.6. ASSESSMENT AND PLAN: 1. Cellulitis with osteomyelitis. The acute signs of infection are resolving. His white count continues to decrease and the erythema and swelling is also improved. The amount of bone exposure, however, remains only slightly improved. I am concerned about the bone over the 2nd metatarsal basis. I do not see granulation tissue over the area. The patient is approved for 30 hyperbaric oxygen treatments. Will initiate this once the patient is discharged to a jail facility. The patient will require long-term IV antibiotics and then possibly followed by oral antibiotics. 2. Diabetic neuropathic ulceration right foot is improved. The nonviable and fibrotic tissue was sharply excised through skin edges through healthy subcutaneous tissue using a curette and a tissue nipper. I debrided some of the tendon and bone exposed within the wound base around the 2nd metatarsal as well as the intermediate and medial cuneiform using a curette. There was a minimal amount of bleeding. Hemostasis achieved with pressure. We will continue with the Wound VAC and the use of white foam as well as the Wound VAC was set at 125 mm of continuous mercury. 3. Diabetes with peripheral neuropathy. His blood sugars have been difficult to control as an outpatient. Therefore, going to a jail facility where controlled blood sugars would be beneficial with both healing as well as for infection control. I will followup with the patient as an outpatient, or if he is still in a hospital in two days, I will recheck his wound then.
[2017-01-20 13:17] VITALS: BP 167/73; PULSE 74; RESP 18; O2SAT 92
--- NOTE | 2017-01-20 14:32 | NUR ---
Social Work- Multi-Disciplinary Rounds Pt discussed in multi-disciplinary rounds. Pt will require wound vac at discharge, PT, and IV abx. T/C to [facility] regarding pt's needs at discharge. [facility] is aware of pt's needs. Liv, admissions at [facility], is working on necessary insurance authorizations. No additional needs identified. SW will continue to follow. YINA Iverson
--- NOTE | 2017-01-20 14:52 | PCM.PHAPRO ---
Progress WARFARIN DOSING PER PHARMACY RTM SLF SLF ARH WF WF DFF DFF DFF 3-Jan 4-Jan 5-Jan 6-Jan 7-Jan 8-Jan 17-Jan 18-Jan 19-Jan 20-Jan 1.34 1.37 1.55 1.35 1.10 1.08 1.11 1.13 1.29 1.49 -0.52 0.03 0.18 -0.2 -0.25 -0.02 0.03 0.02 0.16 0.2 3MG HELD held hold hold 5MG 5MG 5 MG 7 MG -Jul A/P -Subtherapeutic INR which is uptrending. -Will continue with warfarin 7 mg this evening. Will consider lower dose tomorrow. Modesto Fairchild, PharmD Modesto Fairchild Jan 20, 2017 14:52
--- NOTE | 2017-01-20 18:00 | NUR ---
Activity Patient able to walk with SBA for IV/wound vac assistance.
[2017-01-20 19:50] VITALS: BP 134/77; PULSE 84; RESP 17; O2SAT 96
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
--- NOTE | 2017-01-20 23:43 | NUR ---
Lispro/eMAR 2200 bedtime sliding scale 2 units lispro was given for FBS of 206. Scanned twice in pt room and did not save correctly.
[2017-01-21] MEDS: Piperacillin-Tazo 3.375 Gm Inj 3.375 GM in Dextrose 5% Minibag Plus 50 ML IV SCH ×3 (00:48→17:03)
[2017-01-21] MEDS: Sodium Chloride LOK Flush 10 mL Syringe IVFLUSH SCH ×3 (00:48→16:30)
[2017-01-21 02:41] VITALS: BP 170/77; PULSE 83; RESP 18; O2SAT 94
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
[2017-01-21] MEDS ORDERED: OLANZapine Zydis ODT 5 mg Tablet PO ONE (03:05)
[2017-01-21 05:12] VITALS: BP 186/86; PULSE 83; RESP 17; O2SAT 98
--- NOTE | 2017-01-21 05:20 | NUR ---
HTN AM BP 186/86. Night hospitalist notified; No new orders at this time. Care continues.
[2017-01-21 05:43] LABS: INR 1.64 ratio
[2017-01-21 05:51] LABS: Magnesium 2.3 mg/dL (1.6-2.6)
--- NOTE | 2017-01-21 06:34 | NUR ---
HR At 0620 patient appears to be in A fib per continuous pulse ox. HR 80's and up to 110's at times. Pt denies CP/SOB. Has a history of afib and on Coumadin, but has not been noticeable this evening. Patient is not on tele. MD notified. No new orders at this time. Will share this with day shift nurse. Care continues.
[2017-01-21 08:21] VITALS: PULSE 115
[2017-01-21] MEDS: Insulin GLARgine 100 Unit/mL Syringe SUBQ SCH ×2 (09:11→21:19)
[2017-01-21] MEDS: Insulin LISPRO 300 Unit/3 mL Inj SUBQ SCH ×5 (09:13→22:00)
--- NOTE | 2017-01-21 11:11 | NUR ---
Faxed wound vac authorization form to Liv Hogue at [facility]. Also spoke with her about insurance authorization for transfer to SNF and she has this approved already. She will updated us once wound vac auth is done so we can transfer patient. Updated EARLY LEARNING [employer]ACHER
[2017-01-21 11:28] VITALS: PULSE 93
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
--- NOTE | 2017-01-21 14:04 | PCM.PHAPRO ---
Progress WARFARIN DOSING PER PHARMACY RTM SLF SLF ARH WF WF DFF DFF DFF DFF 4-Jan 5-Jan 6-Jan 7-Jan 8-Jan 17-Jan 18-Jan 19-Jan 20-Jan 21-Jan 1.37 1.55 1.35 1.10 1.08 1.11 1.13 1.29 1.49 1.64 0.03 0.18 -0.2 -0.25 -0.02 0.03 0.02 0.16 0.2 0.15 HELD held hold hold 5MG 5MG 5 MG 7 MG 7 MG 7.5 MG A/P -Subtherapeutic INR with increased dose from home last few days. Was previously held. -Will make minor increase to warfarin 7.5mg this evening. INR supratherapeutic earlier during hospitalization so dose will need to be adjusted back down once a noticeable uptrend is noted Modesto Fairchild, PharmD Modesto Fairchild Jan 21, 2017 14:04
[2017-01-21 14:09] VITALS: BP 127/73; PULSE 82; RESP 18; O2SAT 99
--- NOTE | 2017-01-21 14:50 | PCM.PNNEPH ---
Subjective Date of Service Jan 21, 2017 Subjective Patient is showing some improvement. He is more alert and interactive today as compared to previous encounters. Pressure is better today and is had about 1400 mL of urine output in the last 24 hours. This morning his sodium is 142, potassium 4.7, chloride 104, bicarbonate 25, BUN and creatinine were 33 and 1. 5. Exam Vital Signs Vital Sign - Last Date Time Temp Pulse Resp B/P Pulse Ox O2 Delivery O2 Flow Rate FiO2 01/21/17 14:09 36.7 82 18 127/73 99 Room Air 01/19/17 08:22 2.00 Intake and Output 01/20/17 01/20/17 01/21/17 Cumulative From/Thru 15:00 23:00 07:00 01/03/17 11:59 - 01/21/17 05:36 Intake Total 160 ml 700 ml 901 ml 47614 ml Output Total 900 ml 1800 ml 73088 ml Balance 160 ml -200 ml -899 ml 68706 ml Intake Oral 700 ml 850 ml 25096 ml IV Total 160 ml 51 ml 07445 ml TPN/PPN 100 ml Output Urine Total 900 ml 1800 ml 12868 ml Estimated Blood Loss 30 ml # Voids 8 # Bowel Movements 1 0 16 Exam HEENT examination is remarkable for pale sclera. Neck is supple without adenopathy, thyromegaly, or jugular venous distention. Lungs are clear to auscultation. Heart was regular and rhythmical with a soft systolic murmur. Abdomen was soft without any tenderness rebound guarding masses or hepatosplenomegaly. She does not show any evidence of any clubbing, cyanosis, or edema. Skin turgor is good. Lab and Diagnostics Result Diagram: 01/20/17 0500 01/21/17 0505 Microbiology Specimen: [id number] Collected: 01/03/17 Status: COMP Req#: [id number] Received: 01/03/17 Source: BLOOD Sp Desc : KYLER Nichols Dr: Nader Godron MD Ordered: ARTHUR Comments: Collected by Nurse/Unit? Y/N N Procedure Result Verified Site Microbiology JAYDE CULTURE BLOOD Final 01/06/17-07 Organism 1 STAPHYLOCOCCUS AUREUS GRAM STAIN RESULT GRAM POSITIVE COCCI ?STAPH BC BOTTLE Isolated from Aerobic Bottle of Set Drawn DATE CALLED: 01/04/17 TIME CALLED: 0631 CALLED BY: SIA FLOOR/DOCTOR: WAQAS Gipson BC READ BACK Y TYPE OF DRAW NURSE COLLLECT TYPE NOT SPECIFIED TIME OF POSITIVITY 0600 GRAM STAIN RESULT GRAM POSITIVE COCCI ?STAPH BC BOTTLE2 Isolated from Anaerobic Bottle of Set Drawn DATE CALLED: 01/04/17 TIME CALLED: 1112 CALLED BY: SIA FLOOR/DOCTOR: BHANU Yarbrough BC READ BACK Y TYPE OF DRAW NURSE COLLECT TYPE NOT INDICATED TIME OF POSITIVITY 1050 STAPHYLOCOCCUS AUREUS Oxacillin Susceptible Penicillin Resistant Staph spp. are Susceptible to Penicillin stable penicillins, Blactam/Blactamase inhibitor combinations, antistaphyloccal cephems, and carbapenems. ISOLATED FROM FOUR OF FOUR BOTTLES COLLECTED 01/03/17. 1. STAPHYLOCOCCUS AUREUS M.I.C Interp --------- ------ * CEFAZOLIN S * CLINDAMYCIN <=0.25 S * ERYTHROMYCIN <=0.25 S CONTINUED ON NEXT PAGE RUN DATE: 01/06/17 [facility] LIVE PAGE 2 RUN TIME: 0700 Specimen Inquiry PHYSICIAN Patient: DARA OLIVAS [id number] (Continued) Specimen: [id number] Collected: 01/03/17 Received: 01/03/17 (Continued) Procedure Result Verified Site JAYDE CULTURE BLOOD Final (continued) 01/06/17-699 1. STAPHYLOCOCCUS AUREUS (continued) M.I.C Interp --------- ------ * LINEZOLID 2 S * MOXIFLOXACIN <=0.25 S * OXACILLIN JAYDE 0.5 S * RIFAMPIN <=0.5 S * TETRACYCLINE <=1 S * TRIMETHOPRIM/SULFAMETHOXAZOLE <=10 S * VANCOMYCIN <=0.5 S Name: DARA OLIVAS Age/Sex: 71/M Attend Dr: Luigi Arrieta MD Acct: [id number] Unit: [id number] Status: ADM IN Location: [facility] [place] 1008-1 Re01/03/17 Disch: Specimen: [id number] Collected: 01/05/17 Status: CATRACHITO Req#: [id number] Received: 01/05/17 Source: FOOT Sp Desc : Subm Dr: Jeanne Key DPM Ordered: CS & ANAC & Comments: Collected by Nurse/Unit? Y/N Y Comment: RIGHT FOOT, DEEP CULTURE Procedure Result Verified Site Microbiology JAYDE GS (GRAM STAIN) Final 01/05/17-2032 GRAM STAIN RESULT NO POLYS SEEN FEW GRAM POS COCCI JAYDE CULT AEROBIC Final 01/12/17 Organism 1 STAPHYLOCOCCUS AUREUS COLONY COUNT/QUANTITY HEAVY GROWTH Oxacillin Susceptible Penicillin Resistant Staph spp. are Susceptible to Penicillin stable penicillins, Blactam/Blactamase inhibitor combinations, antistaphyloccal cephems, and carbapenems. 1. STAPHYLOCOCCUS AUREUS M.I.C Interp --------- ------ * CEFAZOLIN S * CLINDAMYCIN <=0.25 S * ERYTHROMYCIN <=0.25 S * LINEZOLID 2 S * MOXIFLOXACIN <=0.25 S * OXACILLIN JAYDE 0.5 S * RIFAMPIN <=0.5 S * TETRACYCLINE <=1 S * TRIMETHOPRIM/SULFAMETHOXAZOLE <=10 S * VANCOMYCIN <=0.5 S ANAEROBIC CULTURE Final 01/12/17 No anaerobes isolated Laboratory Tests 72 Hours Test 01/06/17 19:59 01/07/17 03:10 01/08/17 03:00 01/09/17 02:55 Urine Color Yellow (YELLOW) Urine Appearance Hazy (CLEAR,HAZY) Urine pH 5.0 (5.0-8.0) Urine Specific [place] 1.020 (1.003-1.035) Urine Protein 30mg/dL (NEG,TRACE) Urine Glucose (UA) Negativemg/dL (NEGATIVE) Urine Ketones Negativemg/dL (NEGATIVE) Urine Occult Blood Small (NEGATIVE) Urine Nitrite Negative (NEGATIVE) Urine Bilirubin Negative (NEGATIVE) Urine Urobilinogen Normalmg/dL (NORMAL) Urine Leukocyte Esterase Negative (NEGATIVE) Urine RBC 0-2/hpf (0-2) Urine WBC 0-5/hpf (0-5) Urine Epithelial Cells Occasional/hpf (NONE-MOD) Urine Crystals Amorphous urates (NONE Urine Bacteria None/hpf (NONE-FEW) Urine Hyaline Casts None/lpf (NONE) Urine Granular Casts None seen (NONE SEEN) Urine Waxy Casts None seen (NONE SEEN) Urine Red Blood Cell Casts None seen (NONE SEEN) Urine White Blood Cell Casts None seen (NONE SEEN) Urine Mucus None seen (None Seen) Urine Trichomonas None seen (NONE SEEN) Urine Yeast None (NONE SEEN) Urinalysis Comment None Urine Culture Reflexed Not indicated White Blood Count 10.0th/mm3 (3.8-10.1) 10.9th/mm3 (3.8-10.1) 9.6th/mm3 (3.8-10.1) Red Blood Count 3.44mil/mm3 (4.40-5.80) 3.50mil/mm3 (4.40-5.80) 3.28mil/mm3 (4.40-5.80) Hemoglobin 10.2g/dL (13.8-17.2) 10.4g/dL (13.8-17.2) 9.5g/dL (13.8-17.2) Hematocrit 31.7% (41.0-50.0) 31.8% (41.0-50.0) 29.7% (41.0-50.0) Mean Corpuscular Volume 92.2fL (81-100) 90.9fL (81-100) 90.5fL (81-100) Mean Corpuscular Hemoglobin 29.7pg (27.0-35.0) 29.7pg (27.0-35.0) 29.0pg (27.0-35.0) Mean Corpuscular Hemoglobin Concent 32.2% (32.0-37.0) 32.7% (32.0-37.0) 32.0% (32.0-37.0) Red Cell Distribution Width 15.3% (12.3-15.4) 14.9% (12.3-15.4) 14.9% (12.3-15.4) Platelet Count 208bil/L (150-400) 287bil/L (150-400) 312bil/L (150-400) Neutrophils (%) (Auto) 73.2% (40-74) 77.9% (40-74) 74.0% (40-74) Lymphocytes (%) (Auto) 11.4% (14-46) 9.2% (14-46) 12.4% (14-46) Monocytes (%) (Auto) 12.6% (4-12) 10.9% (4-12) 11.5% (4-12) Eosinophils (%) (Auto) 2.2% (0-5) 1.3% (0-5) 1.6% (0-5) Basophils (%) (Auto) 0.1% (0-3) 0.2% (0-3) 0.1% (0-3) Prothrombin Time 38.9sec (8.1-12.5) 38.7sec (8.1-12.5) 43.1sec (8.1-12.5) Prothromb Time International Ratio 3.54ratio 3.53ratio 3.92ratio Sodium Level 134mEq/L (134-144) 133mEq/L (134-144) 136mEq/L (134-144) Potassium Level 4.8mEq/L (3.5-5.2) 4.7mEq/L (3.5-5.2) 4.4mEq/L (3.5-5.2) Chloride Level 102mEq/L (97-108) 102mEq/L (97-108) 106mEq/L (97-108) Carbon Dioxide Level 19mmol/L (18-29) 18mmol/L (18-29) 19mmol/L (18-29) Blood Urea Nitrogen 53mg/dL (8-27) 50mg/dL (8-27) 52mg/dL (8-27) Creatinine 1.83mg/dL (0.76-1.27) 1.79mg/dL (0.76-1.27) 1.75mg/dL (0.76-1.27) Estimat Glomerular Filtration Rate 39mL/min (>59) 40mL/min (>59) 41mL/min (>59) Glucose Level 348mg/dL (60-99) 273mg/dL (60-99) 247mg/dL (60-99) Calcium Level 7.9mg/dL (8.5-10.1) 8.0mg/dL (8.5-10.1) 7.9mg/dL (8.5-10.1) Procalcitonin 3.58ng/mL (0.00-0.08) 3.22ng/mL (0.00-0.08) X-Rays, CTs and MRIs PROCEDURE: X-RAY RIGHT FOOT COMPLETE, MINIMUM THREE VIEWS ([id number]) INDICATIONS: POST SURGERY ON RIGHT FOOT TECHNIQUE: 3 views of the foot were acquired. COMPARISON: 01/05/2017 FINDINGS: Bones: First and second metatarsals amputations show mild bony resorption at the end of the bony stumps. Margins appear sharp or on the lateral projection. Soft tissues: Postoperative changes of the soft tissues show interval improvement with diminished swelling and artifact. IMPRESSION: Expected postoperative changes with progression since last exam. Dictated by: Olman Sim M.D. on 01/15/2017 at 16:27 Approved by: Olman Sim M.D. on 01/15/2017 at 16:30 CT brain 1. No acute intracranial abnormalities. 2. Cerebral volume loss and chronic microvascular ischemic change Dictated by: Milton Bardales M.D. on 01/03/2017 at 12:54 Chest x-ray IMPRESSION: No acute cardiopulmonary disease. Dictated by: Milton Bardales M.D. on 01/03/2017 at 13:55 Venous duplex IMPRESSION: No deep venous thrombosis in the right lower extremity. Dictated by: Milton Bardales M.D. 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 Although the gas may be related to recent instrumentation, developing necrotizing fasciitis cannot be excluded and clinical correlation and followup is recommended. Dr. Key given results at 1108 hours on 01/05/2017. Dictated by: Sung VELAZCO Interpreted: Rhona Paige MD on 01/05/2017 at 10:56 01/05 PROCEDURE: X-RAY RIGHT FOOT COMPLETE, MINIMUM THREE VIEWS ([id number]) IMPRESSION: Interval postoperative changes of the right forefoot as described. No radiopaque foreign bodies. Dictated by: Ronal Galindo M.D. on 01/05/2017 at 15:58 01/06 PROCEDURE: US RENAL SONOGRAM 1. Left renal inferior exophytic cyst otherwise normal kidneys. 2. 707 cc prevoid urinary volume and postvoid residual cannot be assessed. Cardiac Echo Impressions Last echo 04/06/16 Interpretation Summary Left ventricular wall thickness is mild-moderately increased. Assessment of diastolic parameters indicates a relaxation abnormality of the left ventricle, consistent with normal filling pressures. The right ventricle is normal in size and function. Pulmonary artery pressures cannot be estimated because of the lack of a measurable TR jet velocity. Both atria are normal in size. There is no significant valvular heart disease. The aortic root is normal size. The aortic arch is normal in size. TTE 01/05/17 The study quality was technically difficult. A contrast injection of Definity was performed to improve assessment of LV function. Left ventricular ejection fraction is estimated to be 50%. Apical hypokinesis is suspected, LVEF is slightly lower on this exam. The right ventricle is normal size. Right ventricular systolic function is mildly reduced. The right ventricular systolic pressure is estimated at 25 mmHg assuming a right atrial pressure of 8 mm Hg. In an off axis view there is an echodensity along the superior aspect of the IAS, this could be an artifact. A [place] can hlep elucidate this further, or a limited echo to re evaluate the RA may be requested. [place] 01/07/17 The left ventricular ejection fraction is grossly normal. The interatrial septum is intact with no evidence for an atrial septal defect. No evidence of endocarditis. No mass seen in RA, TTE finding was artifactual. 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 Recommendations #1 this point we need to continue to focus on blood pressure control. Anirudh Land DO Jan 21, 2017 14:50
--- NOTE | 2017-01-21 15:33 | NUR ---
Care Assumed care at 1500.
[2017-01-21] MEDS ORDERED: Warfarin 5 MG, Warfarin 2.5 MG PO ONE ×2 (17:00)
[2017-01-21 19:55] VITALS: BP 158/90; PULSE 92; RESP 18; O2SAT 94
--- NOTE | 2017-01-21 20:24 | DRSVH ---
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 FINDINGS: PICC was placed by the intravenous therapy team from the right side. Fluoroscopic spot fi lm demonstrates tip of PICC at the cavoatrial junction. IMPRESSION: Tip of PICC extends to the cavoatrial junction. Dictated by: Hever Goel M.D. on 01/21/2017 at 20:22 Approved by: Heevr Goel M.D. on 01/21/2017 at 20:23
--- NOTE | 2017-01-21 22:48 | PCM.PNMED ---
Subjective Date of Service Jan 21, 2017 Subjective Patient is very somnolent today and is arousable however he simply goes back to sleep after being aroused. I did get him up and set him up to eat lunch. He then continued to eat lunch on his own. As no other new complaints. Exam Vital Signs Vital Sign - Last Date Time Temp Pulse Resp B/P Pulse Ox O2 Delivery O2 Flow Rate FiO2 01/21/17 19:55 36.4 92 18 158/90 94 Room Air 01/19/17 08:22 2.00 Intake and Output 01/20/17 01/20/17 01/21/17 Cumulative From/Thru 15:00 23:00 07:00 01/03/17 11:59 - 01/21/17 05:36 Intake Total 160 ml 700 ml 901 ml 15734 ml Output Total 900 ml 1800 ml 73143 ml Balance 160 ml -200 ml -899 ml 24511 ml Intake Oral 700 ml 850 ml 83854 ml IV Total 160 ml 51 ml 58825 ml TPN/PPN 100 ml Output Urine Total 900 ml 1800 ml 84334 ml Estimated Blood Loss 30 ml # Voids 8 # Bowel Movements 1 0 16 Exam General: Patient is an no apparent distress at this time. He is seen while Dr. Key was debrided in his right foot. HEENT: Head is atraumatic and normocephalic. Eyes: Pupils are equally round and reactive to light and accommodation. Extraocular muscles are intact. Sclera are white, anicteric. Subconjunctival mucosa is pink. Ears and nose are unremarkable. Oropharynx: There is no mucosal lesions, there is no thrush, there is no pharyngitis. Neck: Is supple, there are no nodes, or masses or tenderness. Chest: Is clear to auscultation and percussion. There are no rales, rhonchi, wheezes or rubs. Heart: Rate, rhythm is regular. There is no murmur, rub or gallop. Abdomen: Good bowel sounds are present. Abdomen is soft, nontender, no organomegaly or masses were appreciated. Extremities: The right foot wound was examined while Dr. Key was doing bedside debridement yesterday. There was no necrotic tissue. The base of the fourth metatarsal and cuneiform bones were visible. There was a tendon visible other areas showed good granulation tissue. Current liter is a wound VAC in place with no significant changes. The left foot dressing is clean dry and intact. Neurologic: There were no focal neurological deficits. Cranial nerves II through XII are intact. There are no sensory or motor deficits. Patient is more somnolent today Psychiatric: Patients mood is calm and he shows no sign of agitation. Genital: Deferred Rectal: Deferred Lab and Diagnostics Result Diagram: 01/20/17 0500 01/21/17 0505 Microbiology Specimen: [id number] Collected: 01/03/17 Status: COMP Req#: [id number] Received: 01/03/17 Source: BLOOD Sp Desc : AA Magdalena Dr: Nader Gordon MD Ordered: Comments: Collected by Nurse/Unit? Y/N N Procedure Result Verified Site Microbiology JAYDE CULTURE BLOOD Final 01/06/17-0700 Organism 1 STAPHYLOCOCCUS AUREUS GRAM STAIN RESULT GRAM POSITIVE COCCI ?STAPH BC BOTTLE Isolated from Aerobic Bottle of Set Drawn DATE CALLED: 01/04/17 TIME CALLED: 0631 CALLED BY: SIA FLOOR/DOCTOR: MEHUL/SAMRA Gipson BC READ BACK Y TYPE OF DRAW NURSE COLLLECT TYPE NOT SPECIFIED TIME OF POSITIVITY 0600 GRAM STAIN RESULT GRAM POSITIVE COCCI ?STAPH BC BOTTLE2 Isolated from Anaerobic Bottle of Set Drawn DATE CALLED: 01/04/17 TIME CALLED: 1112 CALLED BY: SIA FLOOR/DOCTOR: BHANU GIBSON READ BACK Y TYPE OF DRAW NURSE COLLECT TYPE NOT INDICATED TIME OF POSITIVITY 1050 STAPHYLOCOCCUS AUREUS Oxacillin Susceptible Penicillin Resistant Staph spp. are Susceptible to Penicillin stable penicillins, Blactam/Blactamase inhibitor combinations, antistaphyloccal cephems, and carbapenems. ISOLATED FROM FOUR OF FOUR BOTTLES COLLECTED 01/03/17. 1. STAPHYLOCOCCUS AUREUS M.I.C Interp --------- ------ * CEFAZOLIN S * CLINDAMYCIN <=0.25 S * ERYTHROMYCIN <=0.25 S CONTINUED ON NEXT PAGE RUN DATE: 01/06/17 [facility] LIVE PAGE 2 RUN TIME: 0700 Specimen Inquiry PHYSICIAN Patient: DARA OLIVAS [id number] (Continued) Specimen: [id number] Collected: 01/03/17-1220 Received: 01/03/17-124 (Continued) Procedure Result Verified Site JAYDE CULTURE BLOOD Final (continued) 01/06/17-0700 1. STAPHYLOCOCCUS AUREUS (continued) M.I.C Interp --------- ------ * LINEZOLID 2 S * MOXIFLOXACIN <=0.25 S * OXACILLIN JAYDE 0.5 S * RIFAMPIN <=0.5 S * TETRACYCLINE <=1 S * TRIMETHOPRIM/SULFAMETHOXAZOLE <=10 S * VANCOMYCIN <=0.5 S Name: DARA OLIVAS Age/Sex: 71/M Attend Dr: Luigi Arrieta MD Acct: [id number] Unit: [id number] Status: ADM IN Location: [facility] 1008-1 Re01/03/17 Disch: Specimen: [id number] Collected: 01/05/17 Status: CATRACHITO Req#: [id number] Received: 01/05/17 Source: FOOT Sp Desc : Subm Dr: Jeanne Key DPM Ordered: CS & ANAC & GS Comments: Collected by Nurse/Unit? Y/N Y Comment: RIGHT FOOT, DEEP CULTURE Procedure Result Verified Site Microbiology JAYDE GS (GRAM STAIN) Final 01/05/17 GRAM STAIN RESULT NO POLYS SEEN FEW GRAM POS COCCI JAYDE CULT AEROBIC Final 01/12/17 Organism 1 STAPHYLOCOCCUS AUREUS COLONY COUNT/QUANTITY HEAVY GROWTH Oxacillin Susceptible Penicillin Resistant Staph spp. are Susceptible to Penicillin stable penicillins, Blactam/Blactamase inhibitor combinations, antistaphyloccal cephems, and carbapenems. 1. STAPHYLOCOCCUS AUREUS M.I.C Interp --------- ------ * CEFAZOLIN S * CLINDAMYCIN <=0.25 S * ERYTHROMYCIN <=0.25 S * LINEZOLID 2 S * MOXIFLOXACIN <=0.25 S * OXACILLIN JAYDE 0.5 S * RIFAMPIN <=0.5 S * TETRACYCLINE <=1 S * TRIMETHOPRIM/SULFAMETHOXAZOLE <=10 S * VANCOMYCIN <=0.5 S ANAEROBIC CULTURE Final 01/12/17 No anaerobes isolated Laboratory Tests 72 Hours Test 01/06/17 19:59 01/07/17 03:10 01/08/17 03:00 01/09/17 02:55 Urine Color Yellow (YELLOW) Urine Appearance Hazy (CLEAR,HAZY) Urine pH 5.0 (5.0-8.0) Urine Specific [place] 1.020 (1.003-1.035) Urine Protein 30mg/dL (NEG,TRACE) Urine Glucose (UA) Negativemg/dL (NEGATIVE) Urine Ketones Negativemg/dL (NEGATIVE) Urine Occult Blood Small (NEGATIVE) Urine Nitrite Negative (NEGATIVE) Urine Bilirubin Negative (NEGATIVE) Urine Urobilinogen Normalmg/dL (NORMAL) Urine Leukocyte Esterase Negative (NEGATIVE) Urine RBC 0-2/hpf (0-2) Urine WBC 0-5/hpf (0-5) Urine Epithelial Cells Occasional/hpf (NONE-MOD) Urine Crystals Amorphous urates (NONE Urine Bacteria None/hpf (NONE-FEW) Urine Hyaline Casts None/lpf (NONE) Urine Granular Casts None seen (NONE SEEN) Urine Waxy Casts None seen (NONE SEEN) Urine Red Blood Cell Casts None seen (NONE SEEN) Urine White Blood Cell Casts None seen (NONE SEEN) Urine Mucus None seen (None Seen) Urine Trichomonas None seen (NONE SEEN) Urine Yeast None (NONE SEEN) Urinalysis Comment None Urine Culture Reflexed Not indicated White Blood Count 10.0th/mm3 (3.8-10.1) 10.9th/mm3 (3.8-10.1) 9.6th/mm3 (3.8-10.1) Red Blood Count 3.44mil/mm3 (4.40-5.80) 3.50mil/mm3 (4.40-5.80) 3.28mil/mm3 (4.40-5.80) Hemoglobin 10.2g/dL (13.8-17.2) 10.4g/dL (13.8-17.2) 9.5g/dL (13.8-17.2) Hematocrit 31.7% (41.0-50.0) 31.8% (41.0-50.0) 29.7% (41.0-50.0) Mean Corpuscular Volume 92.2fL (81-100) 90.9fL (81-100) 90.5fL (81-100) Mean Corpuscular Hemoglobin 29.7pg (27.0-35.0) 29.7pg (27.0-35.0) 29.0pg (27.0-35.0) Mean Corpuscular Hemoglobin Concent 32.2% (32.0-37.0) 32.7% (32.0-37.0) 32.0% (32.0-37.0) Red Cell Distribution Width 15.3% (12.3-15.4) 14.9% (12.3-15.4) 14.9% (12.3-15.4) Platelet Count 208bil/L (150-400) 287bil/L (150-400) 312bil/L (150-400) Neutrophils (%) (Auto) 73.2% (40-74) 77.9% (40-74) 74.0% (40-74) Lymphocytes (%) (Auto) 11.4% (14-46) 9.2% (14-46) 12.4% (14-46) Monocytes (%) (Auto) 12.6% (4-12) 10.9% (4-12) 11.5% (4-12) Eosinophils (%) (Auto) 2.2% (0-5) 1.3% (0-5) 1.6% (0-5) Basophils (%) (Auto) 0.1% (0-3) 0.2% (0-3) 0.1% (0-3) Prothrombin Time 38.9sec (8.1-12.5) 38.7sec (8.1-12.5) 43.1sec (8.1-12.5) Prothromb Time International Ratio 3.54ratio 3.53ratio 3.92ratio Sodium Level 134mEq/L (134-144) 133mEq/L (134-144) 136mEq/L (134-144) Potassium Level 4.8mEq/L (3.5-5.2) 4.7mEq/L (3.5-5.2) 4.4mEq/L (3.5-5.2) Chloride Level 102mEq/L (97-108) 102mEq/L (97-108) 106mEq/L (97-108) Carbon Dioxide Level 19mmol/L (18-29) 18mmol/L (18-29) 19mmol/L (18-29) Blood Urea Nitrogen 53mg/dL (8-27) 50mg/dL (8-27) 52mg/dL (8-27) Creatinine 1.83mg/dL (0.76-1.27) 1.79mg/dL (0.76-1.27) 1.75mg/dL (0.76-1.27) Estimat Glomerular Filtration Rate 39mL/min (>59) 40mL/min (>59) 41mL/min (>59) Glucose Level 348mg/dL (60-99) 273mg/dL (60-99) 247mg/dL (60-99) Calcium Level 7.9mg/dL (8.5-10.1) 8.0mg/dL (8.5-10.1) 7.9mg/dL (8.5-10.1) Procalcitonin 3.58ng/mL (0.00-0.08) 3.22ng/mL (0.00-0.08) X-Rays, CTs and MRIs PROCEDURE: X-RAY RIGHT FOOT COMPLETE, MINIMUM THREE VIEWS ([id number]) INDICATIONS: POST SURGERY ON RIGHT FOOT TECHNIQUE: 3 views of the foot were acquired. COMPARISON: 01/05/2017 FINDINGS: Bones: First and second metatarsals amputations show mild bony resorption at the end of the bony stumps. Margins appear sharp or on the lateral projection. Soft tissues: Postoperative changes of the soft tissues show interval improvement with diminished swelling and artifact. IMPRESSION: Expected postoperative changes with progression since last exam. Dictated by: Olman Sim M.D. on 01/15/2017 at 16:27 Approved by: Olman Sim M.D. on 01/15/2017 at 16:30 CT brain 1. No acute intracranial abnormalities. 2. Cerebral volume loss and chronic microvascular ischemic change Dictated by: Milton Bardales M.D. on 01/03/2017 at 12:54 Chest x-ray IMPRESSION: No acute cardiopulmonary disease. Dictated by: Milton Bardales M.D. on 01/03/2017 at 13:55 Venous duplex IMPRESSION: No deep venous thrombosis in the right lower extremity. Dictated by: Milton Bardales M.D. on 01/03/2017 at 12:40 01/04 PROCEDURE: X-RAY RIGHT FOOT COMPLETE, MINIMUM THREE VIEWS ([id number]) IMPRESSION: Worsening osteomyelitis involving the first metatarsal head with gas within the adjacent soft tissues as well as throughout the dorsal aspect of the soft tissues. Although the gas may be related to recent instrumentation, developing necrotizing fasciitis cannot be excluded and clinical correlation and followup is recommended. Dr. Key given results at 1108 hours on 01/05/2017. Dictated by: Sung Tejada [facility] Interpreted: Rhona Paige MD on 01/05/2017 at 10:56 01/05 PROCEDURE: X-RAY RIGHT FOOT COMPLETE, MINIMUM THREE VIEWS ([id number]) IMPRESSION: Interval postoperative changes of the right forefoot as described. No radiopaque foreign bodies. Dictated by: Ronal Galindo M.D. on 01/05/2017 at 15:58 01/06 PROCEDURE: US RENAL SONOGRAM 1. Left renal inferior exophytic cyst otherwise normal kidneys. 2. 707 cc prevoid urinary volume and postvoid residual cannot be assessed. Cardiac Echo Impressions Last echo 04/06/16 Interpretation Summary Left ventricular wall thickness is mild-moderately increased. Assessment of diastolic parameters indicates a relaxation abnormality of the left ventricle, consistent with normal filling pressures. The right ventricle is normal in size and function. Pulmonary artery pressures cannot be estimated because of the lack of a measurable TR jet velocity. Both atria are normal in size. There is no significant valvular heart disease. The aortic root is normal size. The aortic arch is normal in size. TTE 01/05/17 The study quality was technically difficult. A contrast injection of Definity was performed to improve assessment of LV function. Left ventricular ejection fraction is estimated to be 50%. Apical hypokinesis is suspected, LVEF is slightly lower on this exam. The right ventricle is normal size. Right ventricular systolic function is mildly reduced. The right ventricular systolic pressure is estimated at 25 mmHg assuming a right atrial pressure of 8 mm Hg. In an off axis view there is an echodensity along the superior aspect of the IAS, this could be an artifact. A V[place] can hlep elucidate this further, or a limited echo to re evaluate the RA may be requested. [place] 01/07/17 The left ventricular ejection fraction is grossly normal. The interatrial septum is intact with no evidence for an atrial septal defect. No evidence of endocarditis. No mass seen in RA, TTE finding was artifactual. Assessment & Plan 71-year-old male with recent amputation of his right big toe and insulin- dependent diabetes who presents after being found down, with hypoglycemia and increased erythema of the right lower extremity consistent with cellulitis. Right foot cellulitis with osteomyelitis, present on admission, active -The patient had serial cultures+MSSA. s/p 2nd digit amputation, serial debridement by Dr. Key postop day #5 -Patient is status post debridment of infected soft tissue and bone, right foot , 01/15/17, postop day #4. Dr. Key performed further debridement today (please see her note). -We will continue Zosyn for now (the patient is s/p Zosyn since 01/04/17 till , Ancef from 01/08/[address] Edwards Recommendation, continue to 02/14/17, switched back to zosyn as clinically worsened). - I have discussed case with Dr. Edwards again today and appreciate his time and expertise. We will follow his recommendations. - We will check CBC to check white blood cell count and differential in a.m. - Pro calcitonin level remains elevated at 0.20 and sedimentation rate is greater than 140. Type 2 Diabetes with peripheral neuropathy, poa, active - The patient had a diabetic foot ulcer, Nephropathy and retinopathy; present on admission , A1c 8.9, - The patient's glucose is in target range with current regimen. - We will continue Lantus, which was increased to 20AM, 30 at night,added 5 units lispro TIDAC + high dose nutritional scale lispro. - We will continue to hold Victoza sq Hypertension, poa, stable -We have discontinued Losartan and spironolactone due to hyperkalemia, which has worsened again today. Dr. Land's input, time and expertise is greatly appreciated. He has added lisinopril 10 mg by mouth daily at bedtime. -We will continue Amlodipine 10 mg daily, Lasix 20 mg daily, -We have increased coreg from 12.5 mg daily to 12.5 bid - We will check electrolytes in a.m. Altered mental status and Delirium, resolved Patient had decline in mental function after [place]. Mentation seemed to be declining as patient is unable to respond correctly where he was or what year it was. He also had some slurred speech. It should be restated that prior to admission, patient had fallen and stated he did hit his head on this head board and had his head wedged in between. Head CT at that time showed no acute intracranial abnormalities. - DDx: Included stroke secondary to hemorrhage, medication side effects of versed and also considering reduced clearance of versed due to poor kidney function, encephalitis. - Likely secondary to medication side effects, but given history, ordered stat CT head. - Head CT unremarkable. Will decrease pain medications, cluster nursing care, ask for frequent reorientation and make sure there is daylight in room during days. - In the afternoon of 01/09/17, evaluated patient and his mentation is back to baseline since first seen on 01/04/17. The AMS and delirium was likely medication related as patient was given fentanyl for pain, versed for [place], flexiril for spasms. This happened within a short time period on top of poor kidney function. - The patient's mentation is now back to baseline, however he was quite somnolent today. Shortness of breath, resolved -Patient had increased coughing and shortness of breath 01/08/17. -Chest X-ray showed Bibasilar atelectasis versus aspiration or pneumonia. - Patient has been noted to be aspirating per speech evaluation and should have supervised PO intake. - Patient currently on Zosyn for osteomyelitis which will also treat aspiration pneumonitis - Acapella and Incentive spirometry has been ordered. - Recheck CBC periodically. Acute on chronic kidney injury; present on admission; Resolved - Baseline Cr 1.3-1.7. Due to Hypertensive nephrosclerosis and Diabetic nephropathy - Renal ultrasound showed Pre-void bladder volume is 778 mL. - Patient has Milton as of 01/06/17. Improved BUN and Cr afterwards. - We will continue to avoid nephrotoxic insults, monitor urine output - Fluids discontinued 01/08/17 - As no improvement in renal function we have asked nephrology to see. Dr. Land was kind enough to see the patient and appreciate his time and expertise. We will follow his recommendations. Lisinopril has been added 10 mg by mouth daily at bedtime. Chlorthalidone 25 mg by mouth daily has been added as well as sodium bicarbonate by mouth twice a day. Persistent hyperkalemia, secondary to poor renal function and possibly continued need for IV antibiotics - We will give another dose of Kayexalate today - We will repeat electrolytes in a.m. - We will continue off the spironolactone. - We will avoid any potassium supplements. Patient had orange juice this morning and and have recommended against any additional dietary potassium. Paroxysmal Atrial fibrillation on Coumadin; present on admission; stable - The patient was monitored on telemetry till 01/09/17. Patient out of A. fib for several days prior. - We will continue rate control with Carvedilol - Continue warfarin per pharmacy - Daily INR. Ordered 2 units FFP to reduce INR below 2 prior to I&D. Patient only recieved 1 unit. Held second unit after surgery on 01/05. Severe Sepsis - Resolved Secondary to RLE cellulitis and bacteremia found on admission. Patient on admission had leukocytosis of 24.3, tachycardia and tachypnea. Leukocytosis has been improving daily now down to 13.2. RLE very hot, erythematous and edematous , with fluctuant mass on base of RLE 1st digit. This has been improving throughout his admission with treatment initially on ancef and now on zosyn. Recent cultures in September show MSSA pansensitive. Nasal MRSA swab negative. Blood cultures have also been grown gram positive cocci likely to be staph aureus. - Patient no longer tachycardic or tachypneic. Leukocytosis is down to 12.3. - Appreciate Dr. Key consult and ID consult. - I/D done 01/[address] Key drained approximately 50 cc of pustular discharge. Patient had extensive debridement and amputation of right second toe in OR 01/05. She had further debridement again 01/18/2017. Patient had further bedside debridement today and 01/20/2017. - Discontinued Ancef 01/05/17 - Continued zosyn, start date 01/04/17. Will transition to Ancef + Flagyl 01/[address] Edwards recommendation. Plan is for treatment of antibiotics for 6 weeks for osteomyelitis. Treatment is to continue through February 15. - TTE showed EF of 50%, apical hypokineseis and an echodensity along the superior aspect of the IAS, which could be an artifact. [place] would help elucidate this further. Per conversation with caridiologist, differential includes myxoma, so will proceed with [place] for 01/07. - Follow CBC, BMP -Repeat procalcitonin trended down as above Hyperlipidemia - We will continue Atorvastatin 40 mg daily Acquired hypothyroidism - We will continue Synthroid 75 mcg daily Hypoglycemia, due to noncompliance; present on admission; Resolved - Pt has been without his glucometer; when obtained reading was "very high" likely due to above infection - Patient overdosed on Lantus, taking 2-3 times more than prescribed - Continue to monitor glucose Mild troponin elevation; present on admission; Resolved -Likely due to acute kidney injury -Now wnl Anion gap metabolic acidosis with lactic acidosis; present on admission; Resolved -Anion gap improved from 20 to 12, lactic acid trended to 1.0. - IV fluids were used initially when patient had limited PO intake. Acetaminophen for mild pain when necessary. Bowel regimen Senna and MiraLAX scheduled and PRN. Zofran when necessary for nausea and vomiting. SubQ heparin held for now. SCDs in place. High-risk medications: Warfarin Disposition: Hyperkalemia has been corrected. Once corrected Patient will likely be transferred to a snf facility in the next 24-48 hours. We are now awaiting insurance approval for the wound VAC at [facility]. Apparently there has been insurance approval for hyperbaric oxygen. Pain Evaluation: Adequate Pain Control GI Prophylaxis: Not indicated VTE Prophylaxis: Theraputic Anticoag with Warfarin VTE Mechanical Devices: Intermittant Pneumatic CD Resuscitation Status: CPR: Attempt Resuscitation Stan Doe MD Jan 21, 2017 22:48
[2017-01-22] VITALS (7 sets, daily range): BP systolic 144–182; BP diastolic 75–92; PULSE 71–89; RESP 16–22; O2SAT 94–98
[2017-01-22] MEDS: Sodium Chloride LOK Flush 10 mL Syringe IVFLUSH SCH ×3 (00:30→17:28)
[2017-01-22] MEDS: Piperacillin-Tazo 3.375 Gm Inj 3.375 GM in Dextrose 5% Minibag Plus 50 ML IV SCH ×3 (00:50→17:24)
[2017-01-22] MEDS ORDERED: 0.9% Sodium Chloride 250 ML ONE (00:53)
--- NOTE | 2017-01-22 06:16 | NUR ---
HTN Through evening B/P elevated, Md made aware, no new orders; in am improved without intervention. Telemetry reported spontaneous resolution of afib to sinus rhythm. Pt remained oriented and aware of needs and care; chase alarm remains engaged for safety. Hourly rounding ongoing.
[2017-01-22 06:26] LABS: BASOPHILS % (AUTO) 0.5 % (0-3); EOSINOPHILS % (AUTO) 5.6 % (0-5); MONOCYTES % (AUTO) 9.4 % (4-12); Mean Corpuscular Hemoglobin 28.5 pg (27.0-35.0); Mean Corpuscular Volume 94.2 fL (81-100); NEUTROPHILS % (AUTO) 58.9 % (40-74); Platelet Count 256 bil/L (150-400)
[2017-01-22 06:42] LABS: Magnesium 2.1 mg/dL (1.6-2.6)
[2017-01-22 07:00] LABS: INR 2.07 ratio
[2017-01-22] MEDS: Insulin LISPRO 300 Unit/3 mL Inj SUBQ SCH ×7 (08:00→22:00)
[2017-01-22] MEDS: Insulin GLARgine 100 Unit/mL Syringe SUBQ SCH ×2 (09:50→22:20)
--- NOTE | 2017-01-22 12:16 | PCM.PHAPRO ---
Progress Date of Service: Jan 22, 2017 5-Jan 6-Jan 7-Jan 16-Jan 17-Jan 18-Jan 19-Jan 20-Jan 21-Jan 22-Jan 1.55 1.35 1.10 1.08 1.11 1.13 1.29 1.49 1.64 2.07 0.18 -0.2 -0.25 -0.02 0.03 0.02 0.16 0.2 0.15 0.43 held hold hold 5MG 5MG 5 MG 7 MG 7 MG 7.5 MG 5MG Elin Goldberg S PharmD Jan 22, 2017 12:16
--- NOTE | 2017-01-22 12:59 | PCM.PNNEPH ---
Subjective Date of Service Jan 22, 2017 Subjective Patient's renal function is continuing to improve. He is also quite alert and interactive compared to previous examinations several days ago. He states that he is able to ambulate TO some extent without significant difficulties. He denies any headache chest pain or shortness of breath for 24 hours she has had 1920 1 AM and 2700 out. His blood pressure remains good. This morning sodium was 142, potassium 4.3, chloride 105, bicarbonate 27, BUN and creatinine were 30 and 1.88 which is improving. Exam Vital Signs Vital Sign - Last Date Time Temp Pulse Resp B/P Pulse Ox O2 Delivery O2 Flow Rate FiO2 01/22/17 09:13 36.8 84 16 182/75 98 Nasal Cannula 2.00 Intake and Output 01/21/17 01/21/17 01/22/17 Cumulative From/Thru 15:00 23:00 07:00 01/03/17 11:59 - 01/22/17 06:20 Intake Total 1020 ml 679 ml 24752 ml Output Total 900 ml 900 ml 18119 ml Balance 120 ml -221 ml 10104 ml Intake Oral 1020 ml 400 ml 00485 ml IV Total 279 ml 14418 ml TPN/PPN 100 ml Output Urine Total 900 ml 900 ml 57417 ml Estimated Blood Loss 30 ml # Voids 8 # Bowel Movements 0 0 16 Exam HEENT examination was remarkable for pale sclera. Neck is supple without adenopathy, thyromegaly, or jugular venous distention. Lungs were clear to auscultation. Heart was regular and rhythmical with a soft systolic murmur. Abdomen is soft without any tenderness, rebound, guarding, masses, or hepatosplenomegaly. Extremities do not show any evidence of any clubbing, cyanosis, or edema. Skin turgor is good. Lab and Diagnostics Result Diagram: 01/22/1760401/22/17604 Microbiology Specimen: [id number] Collected: 01/03/17 Status: COMP Req#: [id number] Received: 01/03/17 Source: BLOOD Sp Desc : AA Subm Dr: Nader Gordon MD Ordered: Comments: Collected by Nurse/Unit? Y/N N Procedure Result Verified Site Microbiology JAYDE CULTURE BLOOD Final 01/06/17-07 Organism 1 STAPHYLOCOCCUS AUREUS GRAM STAIN RESULT GRAM POSITIVE COCCI ?STAPH BC BOTTLE Isolated from Aerobic Bottle of Set Drawn DATE CALLED: 01/04/17 TIME CALLED: 0631 CALLED BY: SIA FLOOR/DOCTOR: MEHUL/SAMRA Gipson BC READ BACK Y TYPE OF DRAW NURSE COLLLECT TYPE NOT SPECIFIED TIME OF POSITIVITY 0600 GRAM STAIN RESULT GRAM POSITIVE COCCI ?STAPH BC BOTTLE2 Isolated from Anaerobic Bottle of Set Drawn DATE CALLED: 01/04/17 TIME CALLED: 1112 CALLED BY: SIA FLOOR/DOCTOR: BHANU Yarbrough BC READ BACK Y TYPE OF DRAW NURSE COLLECT TYPE NOT INDICATED TIME OF POSITIVITY 1050 STAPHYLOCOCCUS AUREUS Oxacillin Susceptible Penicillin Resistant Staph spp. are Susceptible to Penicillin stable penicillins, Blactam/Blactamase inhibitor combinations, antistaphyloccal cephems, and carbapenems. ISOLATED FROM FOUR OF FOUR BOTTLES COLLECTED 01/03/17. 1. STAPHYLOCOCCUS AUREUS M.I.C Interp --------- ------ * CEFAZOLIN S * CLINDAMYCIN <=0.25 S * ERYTHROMYCIN <=0.25 S CONTINUED ON NEXT PAGE RUN DATE: 01/06/17 [facility] LIVE PAGE 2 RUN TIME: 0700 Specimen Inquiry PHYSICIAN Patient: DARA OLIVAS [id number] (Continued) Specimen: [id number] Collected: 01/03/17 Received: 01/03/17 (Continued) Procedure Result Verified Site JAYDE CULTURE BLOOD Final (continued) 01/06/17-699 1. STAPHYLOCOCCUS AUREUS (continued) M.I.C Interp --------- ------ * LINEZOLID 2 S * MOXIFLOXACIN <=0.25 S * OXACILLIN JAYDE 0.5 S * RIFAMPIN <=0.5 S * TETRACYCLINE <=1 S * TRIMETHOPRIM/SULFAMETHOXAZOLE <=10 S * VANCOMYCIN <=0.5 S Name: DARA OLIVAS Age/Sex: 71/M Attend Dr: Luigi Arrieta MD Acct: [id number] Unit: [id number] Status: ADM IN Location: [facility] [place] 1008-1 Re01/03/17 Disch: Specimen: [id number] Collected: 01/05/17 Status: COMP Req#: [id number] Received: 01/05/17 Source: FOOT Sp Desc : Subm Dr: Jeanne Key DPM Ordered: CS & ANAC & Comments: Collected by Nurse/Unit? Y/N Y Comment: RIGHT FOOT, DEEP CULTURE Procedure Result Verified Site Microbiology JAYDE GS (GRAM STAIN) Final 01/05/17 GRAM STAIN RESULT NO POLYS SEEN FEW GRAM POS COCCI JAYDE CULT AEROBIC Final 01/12/17 Organism 1 STAPHYLOCOCCUS AUREUS COLONY COUNT/QUANTITY HEAVY GROWTH Oxacillin Susceptible Penicillin Resistant Staph spp. are Susceptible to Penicillin stable penicillins, Blactam/Blactamase inhibitor combinations, antistaphyloccal cephems, and carbapenems. 1. STAPHYLOCOCCUS AUREUS M.I.C Interp --------- ------ * CEFAZOLIN S * CLINDAMYCIN <=0.25 S * ERYTHROMYCIN <=0.25 S * LINEZOLID 2 S * MOXIFLOXACIN <=0.25 S * OXACILLIN JAYDE 0.5 S * RIFAMPIN <=0.5 S * TETRACYCLINE <=1 S * TRIMETHOPRIM/SULFAMETHOXAZOLE <=10 S * VANCOMYCIN <=0.5 S ANAEROBIC CULTURE Final 01/12/17 No anaerobes isolated Laboratory Tests 72 Hours Test 01/06/17 19:59 01/07/17 03:10 01/08/17 03:00 01/09/17 02:55 Urine Color Yellow (YELLOW) Urine Appearance Hazy (CLEAR,HAZY) Urine pH 5.0 (5.0-8.0) Urine Specific [place] 1.020 (1.003-1.035) Urine Protein 30mg/dL (NEG,TRACE) Urine Glucose (UA) Negativemg/dL (NEGATIVE) Urine Ketones Negativemg/dL (NEGATIVE) Urine Occult Blood Small (NEGATIVE) Urine Nitrite Negative (NEGATIVE) Urine Bilirubin Negative (NEGATIVE) Urine Urobilinogen Normalmg/dL (NORMAL) Urine Leukocyte Esterase Negative (NEGATIVE) Urine RBC 0-2/hpf (0-2) Urine WBC 0-5/hpf (0-5) Urine Epithelial Cells Occasional/hpf (NONE-MOD) Urine Crystals Amorphous urates (NONE Urine Bacteria None/hpf (NONE-FEW) Urine Hyaline Casts None/lpf (NONE) Urine Granular Casts None seen (NONE SEEN) Urine Waxy Casts None seen (NONE SEEN) Urine Red Blood Cell Casts None seen (NONE SEEN) Urine White Blood Cell Casts None seen (NONE SEEN) Urine Mucus None seen (None Seen) Urine Trichomonas None seen (NONE SEEN) Urine Yeast None (NONE SEEN) Urinalysis Comment None Urine Culture Reflexed Not indicated White Blood Count 10.0th/mm3 (3.8-10.1) 10.9th/mm3 (3.8-10.1) 9.6th/mm3 (3.8-10.1) Red Blood Count 3.44mil/mm3 (4.40-5.80) 3.50mil/mm3 (4.40-5.80) 3.28mil/mm3 (4.40-5.80) Hemoglobin 10.2g/dL (13.8-17.2) 10.4g/dL (13.8-17.2) 9.5g/dL (13.8-17.2) Hematocrit 31.7% (41.0-50.0) 31.8% (41.0-50.0) 29.7% (41.0-50.0) Mean Corpuscular Volume 92.2fL (81-100) 90.9fL (81-100) 90.5fL (81-100) Mean Corpuscular Hemoglobin 29.7pg (27.0-35.0) 29.7pg (27.0-35.0) 29.0pg (27.0-35.0) Mean Corpuscular Hemoglobin Concent 32.2% (32.0-37.0) 32.7% (32.0-37.0) 32.0% (32.0-37.0) Red Cell Distribution Width 15.3% (12.3-15.4) 14.9% (12.3-15.4) 14.9% (12.3-15.4) Platelet Count 208bil/L (150-400) 287bil/L (150-400) 312bil/L (150-400) Neutrophils (%) (Auto) 73.2% (40-74) 77.9% (40-74) 74.0% (40-74) Lymphocytes (%) (Auto) 11.4% (14-46) 9.2% (14-46) 12.4% (14-46) Monocytes (%) (Auto) 12.6% (4-12) 10.9% (4-12) 11.5% (4-12) Eosinophils (%) (Auto) 2.2% (0-5) 1.3% (0-5) 1.6% (0-5) Basophils (%) (Auto) 0.1% (0-3) 0.2% (0-3) 0.1% (0-3) Prothrombin Time 38.9sec (8.1-12.5) 38.7sec (8.1-12.5) 43.1sec (8.1-12.5) Prothromb Time International Ratio 3.54ratio 3.53ratio 3.92ratio Sodium Level 134mEq/L (134-144) 133mEq/L (134-144) 136mEq/L (134-144) Potassium Level 4.8mEq/L (3.5-5.2) 4.7mEq/L (3.5-5.2) 4.4mEq/L (3.5-5.2) Chloride Level 102mEq/L (97-108) 102mEq/L (97-108) 106mEq/L (97-108) Carbon Dioxide Level 19mmol/L (18-29) 18mmol/L (18-29) 19mmol/L (18-29) Blood Urea Nitrogen 53mg/dL (8-27) 50mg/dL (8-27) 52mg/dL (8-27) Creatinine 1.83mg/dL (0.76-1.27) 1.79mg/dL (0.76-1.27) 1.75mg/dL (0.76-1.27) Estimat Glomerular Filtration Rate 39mL/min (>59) 40mL/min (>59) 41mL/min (>59) Glucose Level 348mg/dL (60-99) 273mg/dL (60-99) 247mg/dL (60-99) Calcium Level 7.9mg/dL (8.5-10.1) 8.0mg/dL (8.5-10.1) 7.9mg/dL (8.5-10.1) Procalcitonin 3.58ng/mL (0.00-0.08) 3.22ng/mL (0.00-0.08) X-Rays, CTs and MRIs PROCEDURE: X-RAY RIGHT FOOT COMPLETE, MINIMUM THREE VIEWS ([id number]) INDICATIONS: POST SURGERY ON RIGHT FOOT TECHNIQUE: 3 views of the foot were acquired. COMPARISON: 01/05/2017 FINDINGS: Bones: First and second metatarsals amputations show mild bony resorption at the end of the bony stumps. Margins appear sharp or on the lateral projection. Soft tissues: Postoperative changes of the soft tissues show interval improvement with diminished swelling and artifact. IMPRESSION: Expected postoperative changes with progression since last exam. Dictated by: Olman Sim M.D. on 01/15/2017 at 16:27 Approved by: Olman Sim M.D. on 01/15/2017 at 16:30 CT brain 1. No acute intracranial abnormalities. 2. Cerebral volume loss and chronic microvascular ischemic change Dictated by: Milton Bardales M.D. on 01/03/2017 at 12:54 Chest x-ray IMPRESSION: No acute cardiopulmonary disease. Dictated by: Milton Bardales M.D. on 01/03/2017 at 13:55 Venous duplex IMPRESSION: No deep venous thrombosis in the right lower extremity. Dictated by: Milton Bardales M.D. on 01/03/2017 at 12:40 01/04 PROCEDURE: X-RAY RIGHT FOOT COMPLETE, MINIMUM THREE VIEWS ([id number]) IMPRESSION: Worsening osteomyelitis involving the first metatarsal head with gas within the adjacent soft tissues as well as throughout the dorsal aspect of the soft tissues. Although the gas may be related to recent instrumentation, developing necrotizing fasciitis cannot be excluded and clinical correlation and followup is recommended. Dr. Key given results at 1108 hours on 01/05/2017. Dictated by: Sung VELAZCO Interpreted: Rhona Paige MD on 01/05/2017 at 10:56 01/05 PROCEDURE: X-RAY RIGHT FOOT COMPLETE, MINIMUM THREE VIEWS ([id number]) IMPRESSION: Interval postoperative changes of the right forefoot as described. No radiopaque foreign bodies. Dictated by: Ronal Galindo M.D. on 01/05/2017 at 15:58 01/06 PROCEDURE: US RENAL SONOGRAM 1. Left renal inferior exophytic cyst otherwise normal kidneys. 2. 707 cc prevoid urinary volume and postvoid residual cannot be assessed. Cardiac Echo Impressions Last echo 04/06/16 Interpretation Summary Left ventricular wall thickness is mild-moderately increased. Assessment of diastolic parameters indicates a relaxation abnormality of the left ventricle, consistent with normal filling pressures. The right ventricle is normal in size and function. Pulmonary artery pressures cannot be estimated because of the lack of a measurable TR jet velocity. Both atria are normal in size. There is no significant valvular heart disease. The aortic root is normal size. The aortic arch is normal in size. TTE 01/05/17 The study quality was technically difficult. A contrast injection of Definity was performed to improve assessment of LV function. Left ventricular ejection fraction is estimated to be 50%. Apical hypokinesis is suspected, LVEF is slightly lower on this exam. The right ventricle is normal size. Right ventricular systolic function is mildly reduced. The right ventricular systolic pressure is estimated at 25 mmHg assuming a right atrial pressure of 8 mm Hg. In an off axis view there is an echodensity along the superior aspect of the IAS, this could be an artifact. A [place] can hlep elucidate this further, or a limited echo to re evaluate the RA may be requested. [place] 01/07/17 The left ventricular ejection fraction is grossly normal. The interatrial septum is intact with no evidence for an atrial septal defect. No evidence of endocarditis. No mass seen in RA, TTE finding was artifactual. Plan Impression Impression #1 acute on chronic kidney injury which is resolving number to diabetic nephropathy #3 hypertension with hypertensive heart disease and hypertensive nephrosclerosis Anirudh Land DO Jan 22, 2017 12:59
--- NOTE | 2017-01-22 13:39 | NUR ---
NUTRITION FOLLOW-UP: ASSESS: 71 YO M admitted for hypoglycemia and multiple falls. He is being followed by podiatry. 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 Wound Vac is on rt foot. Renal function continues to improve. PO has been good at 75-100% of most meals on heart healthy/ diabetic diet. Pts wt is up 19kg from admit wt. PMHX: DM, HTN, foot ulcer, CAD LABS: Reviewed. 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 Insulin, Coumadin, Lasix, Senna, Miralax. GI: BM x 1 (01/20) SKIN: dionte 19, podiatry following for foot wounds. Osteomyelitis/cellulitis of R foot. CURRENT WT: 117.5 kg, BMI 39.5 kg/m2, admit wt 98.2 kg, IBW 70 kg DIET: HH/CC, PO intake 75-100% ESTIMATED NEEDS: healing, BMI Calories: 0399-4318 kcal/day (22-25 kcal/kg BW) Protein: 85-105 g/day (1.2-1.5 g/kg IBW) NUTRITION DIAGNOSIS: 1.) Increased kcal/pro needs related to increased nutrient needs for healing as evidence by multiple foot wounds/surgery.-IMPROVING NUTRITION INTERVENTION: 1.) Continue current diet. PO is adequate for needs 2.) Inpatient DM diet education provided 01/07- pt is already signed up for oupt DM education 3.) Continue vanilla Glucerna on L tray. MONITOR/EVALUATE: PO intake, wounds, labs, wt, POC, GI/nutrition status. Follow per moderate nutrition risk guidelines.
--- NOTE | 2017-01-22 15:44 | NUR ---
Wound Care Patient seen for wound care and dressing change at bedside this am, awaiting SNF placement. NPWT dressing taken down, wound is granulating nicely around tendons, bone continues to be visible in the wound bed and is yellow white in color/appearance. Drainage in canister is minimal. Cleaned with saline and reapplied NPWT with white foam deeply, black foam overall and 150 mmhg continuous therapy applied a good seal was attained. Patient has follow up appointment at wound center Thursday 01/25. Left plantar ulcer is cleaned with saline and gauze, redressed with silverlon dressing gauze and kerlix wrapped. Wounds are stable and showing definite signs of healing.
--- NOTE | 2017-01-22 16:17 | NUR ---
Spoke with Christa Guevara and wound vac authorization is not in yet, patient will likely be here until Wednesday. Updated [employer]ER
[2017-01-22] MEDS: HYDROcodone-APAP 5-325 mg Tablet PO PRN (23:16)
--- NOTE | 2017-01-22 23:16 | PCM.PNMED ---
Subjective Date of Service Jan 22, 2017 Subjective Patient is much more awake and alert today. He has no new complaints today. He has no fever, no chills, no diaphoresis, no nausea or vomiting. Exam Vital Signs Vital Sign - Last Date Time Temp Pulse Resp B/P Pulse Ox O2 Delivery O2 Flow Rate FiO2 01/22/17 20:30 36.7 82 22 176/79 97 Nasal Cannula 2.00 Intake and Output 01/21/17 01/21/17 01/22/17 Cumulative From/Thru 15:00 23:00 07:00 01/03/17 11:59 - 01/22/17 06:20 Intake Total 1020 ml 679 ml 61587 ml Output Total 900 ml 900 ml 64688 ml Balance 120 ml -221 ml 89511 ml Intake Oral 1020 ml 400 ml 78277 ml IV Total 279 ml 43374 ml TPN/PPN 100 ml Output Urine Total 900 ml 900 ml 96208 ml Estimated Blood Loss 30 ml # Voids 8 # Bowel Movements 0 0 16 Exam General: Patient is an no apparent distress at this time. He is much more awake and alert today. HEENT: Head is atraumatic and normocephalic. Eyes: Pupils are equally round and reactive to light and accommodation. Extraocular muscles are intact. Sclera are white, anicteric. Subconjunctival mucosa is pink. Ears and nose are unremarkable. Oropharynx: There is no mucosal lesions, there is no thrush, there is no pharyngitis. Neck: Is supple, there are no nodes, or masses or tenderness. Chest: Is clear to auscultation and percussion. There are no rales, rhonchi, wheezes or rubs. Heart: Rate, rhythm is regular. There is no murmur, rub or gallop. Abdomen: Good bowel sounds are present. Abdomen is soft, nontender, no organomegaly or masses were appreciated. Extremities: The right foot wound was examined while Dr. Key performed bedside debridement of the right foot on 01/19/2017. There was no necrotic tissue. The base of the fourth metatarsal and cuneiform bones were visible. There was a tendon visible. Other areas showed good granulation tissue. Currently there is a wound VAC in place with no significant changes. The left foot dressing is clean dry and intact. Neurologic: There were no focal neurological deficits. Cranial nerves II through XII are intact. There are no sensory or motor deficits. Patient is more lucid and less somnolent today Psychiatric: Patients mood is calm and he shows no sign of agitation. Genital: Deferred Rectal: Deferred Lab and Diagnostics Result Diagram: 01/22/1760401/22/17604 Microbiology Specimen: [id number] Collected: 01/03/17 Status: COMP Req#: [id number] Received: 01/03/17-124 Source: BLOOD Sp Desc : AA Magdalena Dr: Nader Gordon MD Ordered: Comments: Collected by Nurse/Unit? Y/N N Procedure Result Verified Site Microbiology JAYDE CULTURE BLOOD Final 01/06/17-0700 Organism 1 STAPHYLOCOCCUS AUREUS GRAM STAIN RESULT GRAM POSITIVE COCCI ?STAPH BC BOTTLE Isolated from Aerobic Bottle of Set Drawn DATE CALLED: 01/04/17 TIME CALLED: 0631 CALLED BY: SIA FLOOR/DOCTOR: MEHUL/SAMRA Gipson BC READ BACK Y TYPE OF DRAW NURSE COLLLECT TYPE NOT SPECIFIED TIME OF POSITIVITY 0600 GRAM STAIN RESULT GRAM POSITIVE COCCI ?STAPH BC BOTTLE2 Isolated from Anaerobic Bottle of Set Drawn DATE CALLED: 01/04/17 TIME CALLED: 1112 CALLED BY: SIA FLOOR/DOCTOR: BHANU Yarbrough BC READ BACK Y TYPE OF DRAW NURSE COLLECT TYPE NOT INDICATED TIME OF POSITIVITY 1050 STAPHYLOCOCCUS AUREUS Oxacillin Susceptible Penicillin Resistant Staph spp. are Susceptible to Penicillin stable penicillins, Blactam/Blactamase inhibitor combinations, antistaphyloccal cephems, and carbapenems. ISOLATED FROM FOUR OF FOUR BOTTLES COLLECTED 01/03/17. 1. STAPHYLOCOCCUS AUREUS M.I.C Interp --------- ------ * CEFAZOLIN S * CLINDAMYCIN <=0.25 S * ERYTHROMYCIN <=0.25 S CONTINUED ON NEXT PAGE RUN DATE: 01/06/17 [facility] LIVE PAGE 2 RUN TIME: 0700 Specimen Inquiry PHYSICIAN Patient: DARA OLIVAS [id number] (Continued) Specimen: [id number] Collected: 01/03/17-1220 Received: 01/03/17-1242 (Continued) Procedure Result Verified Site JAYDE CULTURE BLOOD Final (continued) 01/06/17-699 1. STAPHYLOCOCCUS AUREUS (continued) M.I.C Interp --------- ------ * LINEZOLID 2 S * MOXIFLOXACIN <=0.25 S * OXACILLIN JAYDE 0.5 S * RIFAMPIN <=0.5 S * TETRACYCLINE <=1 S * TRIMETHOPRIM/SULFAMETHOXAZOLE <=10 S * VANCOMYCIN <=0.5 S Name: SARAHILIRJEANINEDARA Age/Sex: 71/M Attend Dr: Luigi Arrieta MD Acct: [id number] Unit: [id number] Status: ADM IN Location: [facility] 1008-1 Re01/03/17 Disch: Specimen: [id number] Collected: 01/05/17-4 Status: COMP Req#: [id number] Received: 01/05/17 Source: FOOT Sp Desc : Subm Dr: Jeanne Key DPM Ordered: CS & ANAC & GS Comments: Collected by Nurse/Unit? Y/N Y Comment: RIGHT FOOT, DEEP CULTURE Procedure Result Verified Site Microbiology JAYDE GS (GRAM STAIN) Final 01/05/17 GRAM STAIN RESULT NO POLYS SEEN FEW GRAM POS COCCI JAYDE CULT AEROBIC Final 01/12/17 Organism 1 STAPHYLOCOCCUS AUREUS COLONY COUNT/QUANTITY HEAVY GROWTH Oxacillin Susceptible Penicillin Resistant Staph spp. are Susceptible to Penicillin stable penicillins, Blactam/Blactamase inhibitor combinations, antistaphyloccal cephems, and carbapenems. 1. STAPHYLOCOCCUS AUREUS M.I.C Interp --------- ------ * CEFAZOLIN S * CLINDAMYCIN <=0.25 S * ERYTHROMYCIN <=0.25 S * LINEZOLID 2 S * MOXIFLOXACIN <=0.25 S * OXACILLIN JAYDE 0.5 S * RIFAMPIN <=0.5 S * TETRACYCLINE <=1 S * TRIMETHOPRIM/SULFAMETHOXAZOLE <=10 S * VANCOMYCIN <=0.5 S ANAEROBIC CULTURE Final 01/12/17 No anaerobes isolated Laboratory Tests 72 Hours Test 01/06/17 19:59 01/07/17 03:10 01/08/17 03:00 01/09/17 02:55 Urine Color Yellow (YELLOW) Urine Appearance Hazy (CLEAR,HAZY) Urine pH 5.0 (5.0-8.0) Urine Specific Molt 1.020 (1.003-1.035) Urine Protein 30mg/dL (NEG,TRACE) Urine Glucose (UA) Negativemg/dL (NEGATIVE) Urine Ketones Negativemg/dL (NEGATIVE) Urine Occult Blood Small (NEGATIVE) Urine Nitrite Negative (NEGATIVE) Urine Bilirubin Negative (NEGATIVE) Urine Urobilinogen Normalmg/dL (NORMAL) Urine Leukocyte Esterase Negative (NEGATIVE) Urine RBC 0-2/hpf (0-2) Urine WBC 0-5/hpf (0-5) Urine Epithelial Cells Occasional/hpf (NONE-MOD) Urine Crystals Amorphous urates (NONE Urine Bacteria None/hpf (NONE-FEW) Urine Hyaline Casts None/lpf (NONE) Urine Granular Casts None seen (NONE SEEN) Urine Waxy Casts None seen (NONE SEEN) Urine Red Blood Cell Casts None seen (NONE SEEN) Urine White Blood Cell Casts None seen (NONE SEEN) Urine Mucus None seen (None Seen) Urine Trichomonas None seen (NONE SEEN) Urine Yeast None (NONE SEEN) Urinalysis Comment None Urine Culture Reflexed Not indicated White Blood Count 10.0th/mm3 (3.8-10.1) 10.9th/mm3 (3.8-10.1) 9.6th/mm3 (3.8-10.1) Red Blood Count 3.44mil/mm3 (4.40-5.80) 3.50mil/mm3 (4.40-5.80) 3.28mil/mm3 (4.40-5.80) Hemoglobin 10.2g/dL (13.8-17.2) 10.4g/dL (13.8-17.2) 9.5g/dL (13.8-17.2) Hematocrit 31.7% (41.0-50.0) 31.8% (41.0-50.0) 29.7% (41.0-50.0) Mean Corpuscular Volume 92.2fL (81-100) 90.9fL (81-100) 90.5fL (81-100) Mean Corpuscular Hemoglobin 29.7pg (27.0-35.0) 29.7pg (27.0-35.0) 29.0pg (27.0-35.0) Mean Corpuscular Hemoglobin Concent 32.2% (32.0-37.0) 32.7% (32.0-37.0) 32.0% (32.0-37.0) Red Cell Distribution Width 15.3% (12.3-15.4) 14.9% (12.3-15.4) 14.9% (12.3-15.4) Platelet Count 208bil/L (150-400) 287bil/L (150-400) 312bil/L (150-400) Neutrophils (%) (Auto) 73.2% (40-74) 77.9% (40-74) 74.0% (40-74) Lymphocytes (%) (Auto) 11.4% (14-46) 9.2% (14-46) 12.4% (14-46) Monocytes (%) (Auto) 12.6% (4-12) 10.9% (4-12) 11.5% (4-12) Eosinophils (%) (Auto) 2.2% (0-5) 1.3% (0-5) 1.6% (0-5) Basophils (%) (Auto) 0.1% (0-3) 0.2% (0-3) 0.1% (0-3) Prothrombin Time 38.9sec (8.1-12.5) 38.7sec (8.1-12.5) 43.1sec (8.1-12.5) Prothromb Time International Ratio 3.54ratio 3.53ratio 3.92ratio Sodium Level 134mEq/L (134-144) 133mEq/L (134-144) 136mEq/L (134-144) Potassium Level 4.8mEq/L (3.5-5.2) 4.7mEq/L (3.5-5.2) 4.4mEq/L (3.5-5.2) Chloride Level 102mEq/L (97-108) 102mEq/L (97-108) 106mEq/L (97-108) Carbon Dioxide Level 19mmol/L (18-29) 18mmol/L (18-29) 19mmol/L (18-29) Blood Urea Nitrogen 53mg/dL (8-27) 50mg/dL (8-27) 52mg/dL (8-27) Creatinine 1.83mg/dL (0.76-1.27) 1.79mg/dL (0.76-1.27) 1.75mg/dL (0.76-1.27) Estimat Glomerular Filtration Rate 39mL/min (>59) 40mL/min (>59) 41mL/min (>59) Glucose Level 348mg/dL (60-99) 273mg/dL (60-99) 247mg/dL (60-99) Calcium Level 7.9mg/dL (8.5-10.1) 8.0mg/dL (8.5-10.1) 7.9mg/dL (8.5-10.1) Procalcitonin 3.58ng/mL (0.00-0.08) 3.22ng/mL (0.00-0.08) X-Rays, CTs and MRIs PROCEDURE: X-RAY RIGHT FOOT COMPLETE, MINIMUM THREE VIEWS ([id number]) INDICATIONS: POST SURGERY ON RIGHT FOOT TECHNIQUE: 3 views of the foot were acquired. COMPARISON: 01/05/2017 FINDINGS: Bones: First and second metatarsals amputations show mild bony resorption at the end of the bony stumps. Margins appear sharp or on the lateral projection. Soft tissues: Postoperative changes of the soft tissues show interval improvement with diminished swelling and artifact. IMPRESSION: Expected postoperative changes with progression since last exam. Dictated by: Olman Sim M.D. on 01/15/2017 at 16:27 Approved by: Olman Sim M.D. on 01/15/2017 at 16:30 CT brain 1. No acute intracranial abnormalities. 2. Cerebral volume loss and chronic microvascular ischemic change Dictated by: Milton Bardales M.D. on 01/03/2017 at 12:54 Chest x-ray IMPRESSION: No acute cardiopulmonary disease. Dictated by: Milton Bardales M.D. on 01/03/2017 at 13:55 Venous duplex IMPRESSION: No deep venous thrombosis in the right lower extremity. Dictated by: Milton Bardales M.D. on 01/03/2017 at 12:40 01/04 PROCEDURE: X-RAY RIGHT FOOT COMPLETE, MINIMUM THREE VIEWS ([id number]) IMPRESSION: Worsening osteomyelitis involving the first metatarsal head with gas within the adjacent soft tissues as well as throughout the dorsal aspect of the soft tissues. Although the gas may be related to recent instrumentation, developing necrotizing fasciitis cannot be excluded and clinical correlation and followup is recommended. Dr. Key given results at 1108 hours on 01/05/2017. Dictated by: Sung Tejada [facility] Interpreted: Rhona Paige MD on 01/05/2017 at 10:56 01/05 PROCEDURE: X-RAY RIGHT FOOT COMPLETE, MINIMUM THREE VIEWS ([id number]) IMPRESSION: Interval postoperative changes of the right forefoot as described. No radiopaque foreign bodies. Dictated by: Ronal Galindo M.D. on 01/05/2017 at 15:58 01/06 PROCEDURE: US RENAL SONOGRAM 1. Left renal inferior exophytic cyst otherwise normal kidneys. 2. 707 cc prevoid urinary volume and postvoid residual cannot be assessed. Cardiac Echo Impressions Last echo 04/06/16 Interpretation Summary Left ventricular wall thickness is mild-moderately increased. Assessment of diastolic parameters indicates a relaxation abnormality of the left ventricle, consistent with normal filling pressures. The right ventricle is normal in size and function. Pulmonary artery pressures cannot be estimated because of the lack of a measurable TR jet velocity. Both atria are normal in size. There is no significant valvular heart disease. The aortic root is normal size. The aortic arch is normal in size. TTE 01/05/17 The study quality was technically difficult. A contrast injection of Definity was performed to improve assessment of LV function. Left ventricular ejection fraction is estimated to be 50%. Apical hypokinesis is suspected, LVEF is slightly lower on this exam. The right ventricle is normal size. Right ventricular systolic function is mildly reduced. The right ventricular systolic pressure is estimated at 25 mmHg assuming a right atrial pressure of 8 mm Hg. In an off axis view there is an echodensity along the superior aspect of the IAS, this could be an artifact. A VIRGINIA can hlep elucidate this further, or a limited echo to re evaluate the RA may be requested. VIR[place]IA 01/07/17 The left ventricular ejection fraction is grossly normal. The interatrial septum is intact with no evidence for an atrial septal defect. No evidence of endocarditis. No mass seen in RA, TTE finding was artifactual. Assessment & Plan 71-year-old male with recent amputation of his right big toe and insulin- dependent diabetes who presents after being found down, with hypoglycemia and increased erythema of the right lower extremity consistent with cellulitis. Right foot cellulitis with osteomyelitis, present on admission, active -The patient had serial cultures+MSSA. s/p 2nd digit amputation, serial debridement by Dr. Key postop day #6 -Patient is status post debridment of infected soft tissue and bone, right foot , 01/15/17, postop day #5. Dr. Key performed further debridement of 01/19/2017 ( please see her note). -We will continue Zosyn for now (the patient is s/p Zosyn since 01/04/17 till , Ancef from 01/08/[address] Edwards Recommendation, continue to 02/14/17, switched back to zosyn as clinically worsened). - I have discussed case with Dr. Edwards again today and appreciate his time and expertise. We will follow his recommendations. - We will check CBC to check white blood cell count and differential in a.m. - Pro calcitonin level remains elevated at 0.20 and sedimentation rate is greater than 140. Type 2 Diabetes with peripheral neuropathy, poa, active - The patient had a diabetic foot ulcer, Nephropathy and retinopathy; present on admission , A1c 8.9, - The patient's glucose is in target range with current regimen. - We will continue Lantus, which was increased to 20AM, 30 at night,added 5 units lispro TIDAC + high dose nutritional scale lispro. - We will continue to hold Victoza sq Hypertension, poa, stable -We have discontinued Losartan and spironolactone due to hyperkalemia, which has stabilized. Dr. Land's input, time and expertise is greatly appreciated. He has added lisinopril 10 mg by mouth daily at bedtime, along with chlorthalidone 25 mg by mouth daily. . -We will continue Amlodipine 10 mg daily, Lasix 20 mg daily, -We have increased Coreg from 12.5 mg daily to 12.5 bid - We will check electrolytes in a.m. Altered mental status and Delirium, resolved Patient had decline in mental function after VIR[place]IA. Mentation seemed to be declining as patient is unable to respond correctly where he was or what year it was. He also had some slurred speech. It should be restated that prior to admission, patient had fallen and stated he did hit his head on this head board and had his head wedged in between. Head CT at that time showed no acute intracranial abnormalities. - DDx: Included stroke secondary to hemorrhage, medication side effects of versed and also considering reduced clearance of versed due to poor kidney function, encephalitis. - Likely secondary to medication side effects, but given history, ordered stat CT head. - Head CT unremarkable. Will decrease pain medications, cluster nursing care, ask for frequent reorientation and make sure there is daylight in room during days. - In the afternoon of 01/09/17, evaluated patient and his mentation is back to baseline since first seen on 01/04/17. The AMS and delirium was likely medication related as patient was given fentanyl for pain, versed for VIR[place]IA, flexiril for spasms. This happened within a short time period on top of poor kidney function. - The patient's mentation is now back to baseline, however he was quite somnolent today. Shortness of breath, resolved -Patient had increased coughing and shortness of breath 01/08/17. -Chest X-ray showed Bibasilar atelectasis versus aspiration or pneumonia. - Patient has been noted to be aspirating per speech evaluation and should have supervised PO intake. - Patient currently on Zosyn for osteomyelitis which will also treat aspiration pneumonitis - Acapella and Incentive spirometry has been ordered. - Recheck CBC periodically. Acute on chronic kidney injury; present on admission; Resolved - Baseline Cr 1.3-1.7. Due to Hypertensive nephrosclerosis and Diabetic nephropathy - Renal ultrasound showed Pre-void bladder volume is 778 mL. - Patient has Milton as of 01/06/17. Improved BUN and Cr afterwards. - We will continue to avoid nephrotoxic insults, monitor urine output - Fluids discontinued 01/08/17 - As no improvement in renal function we have asked nephrology to see. Dr. Land was kind enough to see the patient and appreciate his time and expertise. We will follow his recommendations. Lisinopril has been added 10 mg by mouth daily at bedtime. Chlorthalidone 25 mg by mouth daily has been added as well as sodium bicarbonate by mouth twice a day. Since then renal function appears to have stabilized. Persistent hyperkalemia, secondary to poor renal function and possibly continued need for IV antibiotics - We have given Kayexalate 2 and potassium has normalized. - We will repeat electrolytes in a.m. - We will continue off the spironolactone. - We will avoid any potassium supplements. Patient had orange juice this morning and and have recommended against any additional dietary potassium. Paroxysmal Atrial fibrillation on Coumadin; present on admission; stable - The patient was monitored on telemetry till 01/09/17. Patient out of A. fib for several days prior. - We will continue rate control with Carvedilol - Continue warfarin per pharmacy - Daily INR. Ordered 2 units FFP to reduce INR below 2 prior to I&D. Patient only recieved 1 unit. Held second unit after surgery on 01/05. Severe Sepsis - Resolved Secondary to RLE cellulitis and bacteremia found on admission. Patient on admission had leukocytosis of 24.3, tachycardia and tachypnea. Leukocytosis has been improving daily now down to 13.2. RLE very hot, erythematous and edematous , with fluctuant mass on base of RLE 1st digit. This has been improving throughout his admission with treatment initially on ancef and now on zosyn. Recent cultures in September show MSSA pansensitive. Nasal MRSA swab negative. Blood cultures have also been grown gram positive cocci likely to be staph aureus. - Patient no longer tachycardic or tachypneic. Leukocytosis is down to 12.3. - Appreciate Dr. Key consult and ID consult. - I/D done 01/[address] Key drained approximately 50 cc of pustular discharge. Patient had extensive debridement and amputation of right second toe in OR 01/05. She had further debridement again 01/18/2017. Patient had further bedside debridement today and 01/20/2017. - Discontinued Ancef 01/05/17 - Continued zosyn, start date 01/04/17. Will transition to Ancef + Flagyl 01/[address] Edwards recommendation. Plan is for treatment of antibiotics for 6 weeks for osteomyelitis. Treatment is to continue through February 15. - TTE showed EF of 50%, apical hypokineseis and an echodensity along the superior aspect of the IAS, which could be an artifact. V[place]IA would help elucidate this further. Per conversation with caridiologist, differential includes myxoma, so will proceed with VIR[place]IA for 01/07. - Follow CBC, BMP -Repeat procalcitonin trended down as above Hyperlipidemia - We will continue Atorvastatin 40 mg daily Acquired hypothyroidism - We will continue Synthroid 75 mcg daily Hypoglycemia, due to noncompliance; present on admission; Resolved - Pt has been without his glucometer; when obtained reading was "very high" likely due to above infection - Patient overdosed on Lantus, taking 2-3 times more than prescribed - Continue to monitor glucose Mild troponin elevation; present on admission; Resolved -Likely due to acute kidney injury -Now wnl Anion gap metabolic acidosis with lactic acidosis; present on admission; Resolved -Anion gap improved from 20 to 12, lactic acid trended to 1.0. - IV fluids were used initially when patient had limited PO intake. Acetaminophen for mild pain when necessary. Bowel regimen Senna and MiraLAX scheduled and PRN. Zofran when necessary for nausea and vomiting. SubQ heparin held for now. SCDs in place. High-risk medications: Warfarin Disposition: Hyperkalemia has been corrected. Once corrected Patient will likely be transferred to a detention facility in the next 24-48 hours. We are now awaiting insurance approval for the wound VAC at [facility]. Apparently there has been insurance approval for hyperbaric oxygen. Pain Evaluation: Adequate Pain Control GI Prophylaxis: Not indicated VTE Prophylaxis: Theraputic Anticoag with Warfarin VTE Mechanical Devices: Intermittant Pneumatic CD Resuscitation Status: CPR: Attempt Resuscitation Stan Doe MD Jan 22, 2017 23:16
[2017-01-23] VITALS (7 sets, daily range): BP systolic 139–173; BP diastolic 68–81; PULSE 72–93; RESP 16–20; O2SAT 93–98
[2017-01-23] MEDS: Sodium Chloride LOK Flush 10 mL Syringe IVFLUSH SCH ×3 (00:30→17:06)
[2017-01-23] MEDS: Piperacillin-Tazo 3.375 Gm Inj 3.375 GM in Dextrose 5% Minibag Plus 50 ML IV SCH ×3 (01:25→17:05)
--- NOTE | 2017-01-23 04:16 | NUR ---
Foot pain Increased pain bilaterally in feet tonight, adequately controlled with gabapentin and Vicodin. Wound vac with good seal. Hourly rounding ongoing.
--- NOTE | 2017-01-23 05:45 | NUR ---
Pain Patient stated although he hadn't had much pain since he had been in the hospital, he was having quite a bit in his leg and toe. Patient was given Pain medication and stated his pain level decreased to a tolerable level.
[2017-01-23 06:11] LABS: BASOPHILS % (AUTO) 0.6 % (0-3); EOSINOPHILS % (AUTO) 6.7 % (0-5); MONOCYTES % (AUTO) 10.8 % (4-12); Mean Corpuscular Volume 94.7 fL (81-100); Platelet Count 244 bil/L (150-400)
[2017-01-23 06:32] LABS: Magnesium 2.2 mg/dL (1.6-2.6)
[2017-01-23 06:48] LABS: INR 2.72 ratio
[2017-01-23] MEDS: Insulin LISPRO 300 Unit/3 mL Inj SUBQ SCH ×7 (08:59→21:58)
[2017-01-23] MEDS: Insulin GLARgine 100 Unit/mL Syringe SUBQ SCH ×3 (09:00→21:59)
--- NOTE | 2017-01-23 12:10 | NUR ---
Social Work: Multidisciplinary Rounds/Continued Discharge Planning D: EMR reviewed. Pt is on day 20 of hospitalization for hypoglycemia, multiple falls, RLE cellulitis per H&P. Pt is nearing discharge readiness as soon as pt's authorization for wound vac at [facility] is obtained. Per MD in rounds, pt is cleared to transfer to SNF. MD aware that wound vac authorization can't be reviewed over the weekend and pt likely to stay until Wednesday. Heel Brusher - faxed wound vac authorization form to Liv at [facility] and spoke with her about insurance authorization for transfer to SNF - this has been approved/authorized. Liv will update us once wound vac authorization is received so pt can transfer to [facility]. Per Heel Brusher on 01/22, pt's wound vac has not been authorized (pending) and pt likely to remain at hospital through Wednesday when insurance can review wound vac for authorization. Pt is agreeable to SNF discharge. Paperwork is in chart and PASRR is faxed and completed. SW will continue to follow. A: Pt for whom a SNF has been deemed medically necessary. P: Pt to discharge to [facility] with Dr. Nascimento to follow. [facility] and Heel Brusher working on wound vac authorization - this can't be done over the weekend, pt likely to remain hospitalized until wound vac is reviewed for authorization on Wednesday. SNF stay authorization has been obtained. Paperwork and PASRR are in chart and PASRR is faxed. SW will continue to follow. YINA Hill
--- NOTE | 2017-01-23 15:20 | NUR ---
Tele Tele called to report pts rhythm changed to afib with an irregular heart rate of 82 around 1002 this morning. MD notified. Pt denies chest pain or SOB. Will continue to monitor.
--- NOTE | 2017-01-23 18:17 | NUR ---
Activity Encouraged the pt to get oob for meals. Pt declined. Will continue to educate pt about getting oob and ambulating.
[2017-01-23] MEDS: HYDROcodone-APAP 5-325 mg Tablet PO PRN ×2 (22:18→23:45)
--- NOTE | 2017-01-23 23:39 | PCM.PNMED ---
Subjective Date of Service Jan 23, 2017 Subjective Patient is in good spirits and is very talkative today. He has no new complaints and is beginning to feel better. Exam Vital Signs Vital Sign - Last Date Time Temp Pulse Resp B/P Pulse Ox O2 Delivery O2 Flow Rate FiO2 01/23/17 20:49 36.7 86 20 158/80 94 Nasal Cannula 2.00 Intake and Output 01/22/17 01/22/17 01/23/17 Cumulative From/Thru 15:00 23:00 07:00 01/03/17 11:59 - 01/23/17 05:48 Intake Total 1036 ml 904 ml 38957 ml Output Total 2000 ml 950 ml 35786 ml Balance -964 ml -46 ml 56881 ml Intake Oral 1036 ml 636 ml 43960 ml IV Total 268 ml 78126 ml TPN/PPN 100 ml Output Urine Total 2000 ml 950 ml 67307 ml Estimated Blood Loss 30 ml # Voids 8 # Bowel Movements 0 16 Exam General: Patient is an no apparent distress at this time. He remains more awake and alert today. HEENT: Head is atraumatic and normocephalic. Eyes: Pupils are equally round and reactive to light and accommodation. Extraocular muscles are intact. Sclera are white, anicteric. Subconjunctival mucosa is pink. Ears and nose are unremarkable. Oropharynx: There is no mucosal lesions, there is no thrush, there is no pharyngitis. Neck: Is supple, there are no nodes, or masses or tenderness. Chest: Is clear to auscultation and percussion. There are no rales, rhonchi, wheezes or rubs. Heart: Rate, rhythm is regular. There is no murmur, rub or gallop. Abdomen: Good bowel sounds are present. Abdomen is soft, nontender, no organomegaly or masses were appreciated. Extremities: The right foot wound was examined while Dr. Key performed bedside debridement of the right foot on 01/19/2017. There was no necrotic tissue. The base of the fourth metatarsal and cuneiform bones were visible. There was a tendon visible. Other areas showed good granulation tissue. Currently there is a wound VAC in place with no significant changes. The left foot dressing is clean dry and intact. Neurologic: There were no focal neurological deficits. Cranial nerves II through XII are intact. There are no sensory or motor deficits. Patient is more lucid and less somnolent today Psychiatric: Patients mood is calm and he shows no sign of agitation. Genital: Deferred Rectal: Deferred Lab and Diagnostics Result Diagram: 01/23/1759901/23/17599 Microbiology Specimen: [id number] Collected: 01/03/17 Status: COMP Req#: [id number] Received: 01/03/17-124 Source: BLOOD Sp Desc : AA Subm Dr: Nader Gordon MD Ordered: Comments: Collected by Nurse/Unit? Y/N N Procedure Result Verified Site Microbiology JAYDE CULTURE BLOOD Final 01/06/17-07 Organism 1 STAPHYLOCOCCUS AUREUS GRAM STAIN RESULT GRAM POSITIVE COCCI ?STAPH BC BOTTLE Isolated from Aerobic Bottle of Set Drawn DATE CALLED: 01/04/17 TIME CALLED: 06 CALLED BY: SIA FLOOR/DOCTOR: MEHUL/SAMRA Gipson BC READ BACK Y TYPE OF DRAW NURSE COLLLECT TYPE NOT SPECIFIED TIME OF POSITIVITY 0600 GRAM STAIN RESULT GRAM POSITIVE COCCI ?STAPH BC BOTTLE2 Isolated from Anaerobic Bottle of Set Drawn DATE CALLED: 01/04/17 TIME CALLED: 1112 CALLED BY: SIA FLOOR/DOCTOR: BHANU Yarbrough BC READ BACK Y TYPE OF DRAW NURSE COLLECT TYPE NOT INDICATED TIME OF POSITIVITY 1050 STAPHYLOCOCCUS AUREUS Oxacillin Susceptible Penicillin Resistant Staph spp. are Susceptible to Penicillin stable penicillins, Blactam/Blactamase inhibitor combinations, antistaphyloccal cephems, and carbapenems. ISOLATED FROM FOUR OF FOUR BOTTLES COLLECTED 01/03/17. 1. STAPHYLOCOCCUS AUREUS M.I.C Interp --------- ------ * CEFAZOLIN S * CLINDAMYCIN <=0.25 S * ERYTHROMYCIN <=0.25 S CONTINUED ON NEXT PAGE RUN DATE: 01/06/17 [facility] LIVE PAGE 2 RUN TIME: 0700 Specimen Inquiry PHYSICIAN Patient: DARA OLIVAS [id number] (Continued) Specimen: [id number] Collected: 01/03/17-1220 Received: 01/03/17-124 (Continued) Procedure Result Verified Site JAYDE CULTURE BLOOD Final (continued) 01/06/17-699 1. STAPHYLOCOCCUS AUREUS (continued) M.I.C Interp --------- ------ * LINEZOLID 2 S * MOXIFLOXACIN <=0.25 S * OXACILLIN JAYDE 0.5 S * RIFAMPIN <=0.5 S * TETRACYCLINE <=1 S * TRIMETHOPRIM/SULFAMETHOXAZOLE <=10 S * VANCOMYCIN <=0.5 S Name: DARA OLIVAS Age/Sex: 71/M Attend Dr: Luigi Arrieta MD Acct: [id number] Unit: [id number] Status: [place] [facility] [place] Re01/03/17 Disch: Specimen: [id number] Collected: 01/05/17-1323 Status: CATRACHITO Warner#: [id number] Received: 01/05/17 Source: FOOT Sp Desc : Subm Dr: Jeanne Key DPM Ordered: CS & ANAC & GS Comments: Collected by Nurse/Unit? Y/N Y Comment: RIGHT FOOT, DEEP CULTURE Procedure Result Verified Site Microbiology JAYDE GS (GRAM STAIN) Final 01/05/17 GRAM STAIN RESULT NO POLYS SEEN FEW GRAM POS COCCI JAYDE CULT AEROBIC Final 01/12/17 Organism 1 STAPHYLOCOCCUS AUREUS COLONY COUNT/QUANTITY HEAVY GROWTH Oxacillin Susceptible Penicillin Resistant Staph spp. are Susceptible to Penicillin stable penicillins, Blactam/Blactamase inhibitor combinations, antistaphyloccal cephems, and carbapenems. 1. STAPHYLOCOCCUS AUREUS M.I.C Interp --------- ------ * CEFAZOLIN S * CLINDAMYCIN <=0.25 S * ERYTHROMYCIN <=0.25 S * LINEZOLID 2 S * MOXIFLOXACIN <=0.25 S * OXACILLIN JAYDE 0.5 S * RIFAMPIN <=0.5 S * TETRACYCLINE <=1 S * TRIMETHOPRIM/SULFAMETHOXAZOLE <=10 S * VANCOMYCIN <=0.5 S ANAEROBIC CULTURE Final 01/12/17 No anaerobes isolated Laboratory Tests 72 Hours Test 01/06/17 19:59 01/07/17 03:10 01/08/17 03:00 01/09/17 02:55 Urine Color Yellow (YELLOW) Urine Appearance Hazy (CLEAR,HAZY) Urine pH 5.0 (5.0-8.0) Urine Specific [place] 1.020 (1.003-1.035) Urine Protein 30mg/dL (NEG,TRACE) Urine Glucose (UA) Negativemg/dL (NEGATIVE) Urine Ketones Negativemg/dL (NEGATIVE) Urine Occult Blood Small (NEGATIVE) Urine Nitrite Negative (NEGATIVE) Urine Bilirubin Negative (NEGATIVE) Urine Urobilinogen Normalmg/dL (NORMAL) Urine Leukocyte Esterase Negative (NEGATIVE) Urine RBC 0-2/hpf (0-2) Urine WBC 0-5/hpf (0-5) Urine Epithelial Cells Occasional/hpf (NONE-MOD) Urine Crystals Amorphous urates (NONE Urine Bacteria None/hpf (NONE-FEW) Urine Hyaline Casts None/lpf (NONE) Urine Granular Casts None seen (NONE SEEN) Urine Waxy Casts None seen (NONE SEEN) Urine Red Blood Cell Casts None seen (NONE SEEN) Urine White Blood Cell Casts None seen (NONE SEEN) Urine Mucus None seen (None Seen) Urine Trichomonas None seen (NONE SEEN) Urine Yeast None (NONE SEEN) Urinalysis Comment None Urine Culture Reflexed Not indicated White Blood Count 10.0th/mm3 (3.8-10.1) 10.9th/mm3 (3.8-10.1) 9.6th/mm3 (3.8-10.1) Red Blood Count 3.44mil/mm3 (4.40-5.80) 3.50mil/mm3 (4.40-5.80) 3.28mil/mm3 (4.40-5.80) Hemoglobin 10.2g/dL (13.8-17.2) 10.4g/dL (13.8-17.2) 9.5g/dL (13.8-17.2) Hematocrit 31.7% (41.0-50.0) 31.8% (41.0-50.0) 29.7% (41.0-50.0) Mean Corpuscular Volume 92.2fL (81-100) 90.9fL (81-100) 90.5fL (81-100) Mean Corpuscular Hemoglobin 29.7pg (27.0-35.0) 29.7pg (27.0-35.0) 29.0pg (27.0-35.0) Mean Corpuscular Hemoglobin Concent 32.2% (32.0-37.0) 32.7% (32.0-37.0) 32.0% (32.0-37.0) Red Cell Distribution Width 15.3% (12.3-15.4) 14.9% (12.3-15.4) 14.9% (12.3-15.4) Platelet Count 208bil/L (150-400) 287bil/L (150-400) 312bil/L (150-400) Neutrophils (%) (Auto) 73.2% (40-74) 77.9% (40-74) 74.0% (40-74) Lymphocytes (%) (Auto) 11.4% (14-46) 9.2% (14-46) 12.4% (14-46) Monocytes (%) (Auto) 12.6% (4-12) 10.9% (4-12) 11.5% (4-12) Eosinophils (%) (Auto) 2.2% (0-5) 1.3% (0-5) 1.6% (0-5) Basophils (%) (Auto) 0.1% (0-3) 0.2% (0-3) 0.1% (0-3) Prothrombin Time 38.9sec (8.1-12.5) 38.7sec (8.1-12.5) 43.1sec (8.1-12.5) Prothromb Time International Ratio 3.54ratio 3.53ratio 3.92ratio Sodium Level 134mEq/L (134-144) 133mEq/L (134-144) 136mEq/L (134-144) Potassium Level 4.8mEq/L (3.5-5.2) 4.7mEq/L (3.5-5.2) 4.4mEq/L (3.5-5.2) Chloride Level 102mEq/L (97-108) 102mEq/L (97-108) 106mEq/L (97-108) Carbon Dioxide Level 19mmol/L (18-29) 18mmol/L (18-29) 19mmol/L (18-29) Blood Urea Nitrogen 53mg/dL (8-27) 50mg/dL (8-27) 52mg/dL (8-27) Creatinine 1.83mg/dL (0.76-1.27) 1.79mg/dL (0.76-1.27) 1.75mg/dL (0.76-1.27) Estimat Glomerular Filtration Rate 39mL/min (>59) 40mL/min (>59) 41mL/min (>59) Glucose Level 348mg/dL (60-99) 273mg/dL (60-99) 247mg/dL (60-99) Calcium Level 7.9mg/dL (8.5-10.1) 8.0mg/dL (8.5-10.1) 7.9mg/dL (8.5-10.1) Procalcitonin 3.58ng/mL (0.00-0.08) 3.22ng/mL (0.00-0.08) X-Rays, CTs and MRIs PROCEDURE: X-RAY RIGHT FOOT COMPLETE, MINIMUM THREE VIEWS ([id number]) INDICATIONS: POST SURGERY ON RIGHT FOOT TECHNIQUE: 3 views of the foot were acquired. COMPARISON: 01/05/2017 FINDINGS: Bones: First and second metatarsals amputations show mild bony resorption at the end of the bony stumps. Margins appear sharp or on the lateral projection. Soft tissues: Postoperative changes of the soft tissues show interval improvement with diminished swelling and artifact. IMPRESSION: Expected postoperative changes with progression since last exam. Dictated by: Olman Sim M.D. on 01/15/2017 at 16:27 Approved by: Olman Sim M.D. on 01/15/2017 at 16:30 CT brain 1. No acute intracranial abnormalities. 2. Cerebral volume loss and chronic microvascular ischemic change Dictated by: Milton Bardales M.D. on 01/03/2017 at 12:54 Chest x-ray IMPRESSION: No acute cardiopulmonary disease. Dictated by: Milton Bardales M.D. on 01/03/2017 at 13:55 Venous duplex IMPRESSION: No deep venous thrombosis in the right lower extremity. Dictated by: Milton Bardales M.D. on 01/03/2017 at 12:40 01/04 PROCEDURE: X-RAY RIGHT FOOT COMPLETE, MINIMUM THREE VIEWS ([id number]) IMPRESSION: Worsening osteomyelitis involving the first metatarsal head with gas within the adjacent soft tissues as well as throughout the dorsal aspect of the soft tissues. Although the gas may be related to recent instrumentation, developing necrotizing fasciitis cannot be excluded and clinical correlation and followup is recommended. Dr. Key given results at 1108 hours on 01/05/2017. Dictated by: Sung Tejada [facility] Interpreted: Rhona Paige MD on 01/05/2017 at 10:56 01/05 PROCEDURE: X-RAY RIGHT FOOT COMPLETE, MINIMUM THREE VIEWS ([id number]) IMPRESSION: Interval postoperative changes of the right forefoot as described. No radiopaque foreign bodies. Dictated by: Ronal Galindo M.D. on 01/05/2017 at 15:58 01/06 PROCEDURE: US RENAL SONOGRAM 1. Left renal inferior exophytic cyst otherwise normal kidneys. 2. 707 cc prevoid urinary volume and postvoid residual cannot be assessed. Cardiac Echo Impressions Last echo 04/06/16 Interpretation Summary Left ventricular wall thickness is mild-moderately increased. Assessment of diastolic parameters indicates a relaxation abnormality of the left ventricle, consistent with normal filling pressures. The right ventricle is normal in size and function. Pulmonary artery pressures cannot be estimated because of the lack of a measurable TR jet velocity. Both atria are normal in size. There is no significant valvular heart disease. The aortic root is normal size. The aortic arch is normal in size. TTE 01/05/17 The study quality was technically difficult. A contrast injection of Definity was performed to improve assessment of LV function. Left ventricular ejection fraction is estimated to be 50%. Apical hypokinesis is suspected, LVEF is slightly lower on this exam. The right ventricle is normal size. Right ventricular systolic function is mildly reduced. The right ventricular systolic pressure is estimated at 25 mmHg assuming a right atrial pressure of 8 mm Hg. In an off axis view there is an echodensity along the superior aspect of the IAS, this could be an artifact. A VIR[place]IA can hlep elucidate this further, or a limited echo to re evaluate the RA may be requested. V[place] 01/07/17 The left ventricular ejection fraction is grossly normal. The interatrial septum is intact with no evidence for an atrial septal defect. No evidence of endocarditis. No mass seen in RA, TTE finding was artifactual. Assessment & Plan 71-year-old male with recent amputation of his right big toe and insulin- dependent diabetes who presents after being found down, with hypoglycemia and increased erythema of the right lower extremity consistent with cellulitis. Right foot cellulitis with osteomyelitis, present on admission, active -The patient had serial cultures+MSSA. s/p 2nd digit amputation, serial debridement by Dr. Key postop day #7 -Patient is status post debridment of infected soft tissue and bone, right foot , 01/15/17, postop day #6. Dr. Key performed further debridement of 01/19/2017 ( please see her note). -We will continue Zosyn for now (the patient is s/p Zosyn since 01/04/17 till , Ancef from 01/08/[address] Edwards Recommendation, continue to 02/14/17, switched back to zosyn as clinically worsened). - I have discussed case with Dr. Edwards again today and appreciate his time and expertise. We will follow his recommendations. - We will check CBC to check white blood cell count and differential in a.m. - Pro calcitonin level remains elevated at 0.20 and sedimentation rate is greater than 140. Type 2 Diabetes with peripheral neuropathy, poa, active - The patient had a diabetic foot ulcer, Nephropathy and retinopathy; present on admission , A1c 8.9, - The patient's glucose is in target range with current regimen. - We will continue Lantus, which was increased to 20AM, 30 at night,added 5 units lispro TIDAC + high dose nutritional scale lispro. - We will continue to hold Victoza sq Hypertension, poa, stable -We have discontinued Losartan and spironolactone due to hyperkalemia, which has stabilized. Dr. Land's input, time and expertise is greatly appreciated. He has added lisinopril 10 mg by mouth daily at bedtime, along with chlorthalidone 25 mg by mouth daily. . -We will continue Amlodipine 10 mg daily, Lasix 20 mg daily, -We have increased Coreg from 12.5 mg daily to 12.5 bid - We will re-check electrolytes in a.m. Altered mental status and Delirium, resolved Patient had decline in mental function after V[place]. Mentation seemed to be declining as patient is unable to respond correctly where he was or what year it was. He also had some slurred speech. It should be restated that prior to admission, patient had fallen and stated he did hit his head on this head board and had his head wedged in between. Head CT at that time showed no acute intracranial abnormalities. - DDx: Included stroke secondary to hemorrhage, medication side effects of versed and also considering reduced clearance of versed due to poor kidney function, encephalitis. - Likely secondary to medication side effects, but given history, ordered stat CT head. - Head CT unremarkable. Will decrease pain medications, cluster nursing care, ask for frequent reorientation and make sure there is daylight in room during days. - In the afternoon of 01/09/17, evaluated patient and his mentation is back to baseline since first seen on 01/04/17. The AMS and delirium was likely medication related as patient was given fentanyl for pain, versed for [place], flexiril for spasms. This happened within a short time period on top of poor kidney function. - The patient's mentation is now back to baseline, however he was quite somnolent today. Shortness of breath, resolved -Patient had increased coughing and shortness of breath 01/08/17. -Chest X-ray showed Bibasilar atelectasis versus aspiration or pneumonia. - Patient has been noted to be aspirating per speech evaluation and should have supervised PO intake. - Patient currently on Zosyn for osteomyelitis which will also treat aspiration pneumonitis - Acapella and Incentive spirometry has been ordered. - Recheck CBC periodically. Acute on chronic kidney injury; present on admission; Resolved - Baseline Cr 1.3-1.7. Due to Hypertensive nephrosclerosis and Diabetic nephropathy - Renal ultrasound showed Pre-void bladder volume is 778 mL. - Patient has Milton as of 01/06/17. Improved BUN and Cr afterwards. - We will continue to avoid nephrotoxic insults, monitor urine output - Fluids discontinued 01/08/17 - As no improvement in renal function we have asked nephrology to see. Dr. Land was kind enough to see the patient and appreciate his time and expertise. We will follow his recommendations. Lisinopril has been added 10 mg by mouth daily at bedtime. Chlorthalidone 25 mg by mouth daily has been added as well as sodium bicarbonate by mouth twice a day. Since then renal function appears to have stabilized. Persistent hyperkalemia, secondary to poor renal function. Resolved - We have given Kayexalate 2 and potassium has normalized. - We will repeat electrolytes in a.m. - We will continue off the spironolactone. - We will avoid any potassium supplements. Patient had orange juice this morning and and have recommended against any additional dietary potassium. Paroxysmal Atrial fibrillation on Coumadin; present on admission; stable - The patient was monitored on telemetry till 01/09/17. Patient out of A. fib for several days prior. Patient is back into atrial fibrillation today. - We will continue rate control with Carvedilol - Continue warfarin per pharmacy - Daily INR. Ordered 2 units FFP to reduce INR below 2 prior to I&D. Patient only recieved 1 unit. Held second unit after surgery on 01/05. Severe Sepsis - Resolved Secondary to RLE cellulitis and bacteremia found on admission. Patient on admission had leukocytosis of 24.3, tachycardia and tachypnea. Leukocytosis has been improving daily now down to 13.2. RLE very hot, erythematous and edematous , with fluctuant mass on base of RLE 1st digit. This has been improving throughout his admission with treatment initially on ancef and now on zosyn. Recent cultures in September show MSSA pansensitive. Nasal MRSA swab negative. Blood cultures have also been grown gram positive cocci likely to be staph aureus. - Patient no longer tachycardic or tachypneic. Leukocytosis is down to 12.3. - Appreciate Dr. Key consult and ID consult. - I/D done 01/[address] Key drained approximately 50 cc of pustular discharge. Patient had extensive debridement and amputation of right second toe in OR 01/05. She had further debridement again 01/18/2017. Patient had further bedside debridement today and 01/20/2017. - Discontinued Ancef 01/05/17 - Continued zosyn, start date 01/04/17. Will transition to Ancef + Flagyl 01/[address] Edwards recommendation. Plan is for treatment of antibiotics for 6 weeks for osteomyelitis. Treatment is to continue through February 15. - TTE showed EF of 50%, apical hypokineseis and an echodensity along the superior aspect of the IAS, which could be an artifact. V[place] would help elucidate this further. Per conversation with caridiologist, differential includes myxoma, so will proceed with V[place] for 01/07. - Follow CBC, BMP -Repeat procalcitonin trended down as above Hyperlipidemia - We will continue Atorvastatin 40 mg daily Acquired hypothyroidism - We will continue Synthroid 75 mcg daily Hypoglycemia, due to noncompliance; present on admission; Resolved - Pt has been without his glucometer; when obtained reading was "very high" likely due to above infection - Patient overdosed on Lantus, taking 2-3 times more than prescribed - Continue to monitor glucose Mild troponin elevation; present on admission; Resolved -Likely due to acute kidney injury -Now wnl Anion gap metabolic acidosis with lactic acidosis; present on admission; Resolved -Anion gap improved from 20 to 12, lactic acid trended to 1.0. - IV fluids were used initially when patient had limited PO intake. Acetaminophen for mild pain when necessary. Bowel regimen Senna and MiraLAX scheduled and PRN. Zofran when necessary for nausea and vomiting. SubQ heparin held for now. SCDs in place. High-risk medications: Warfarin Disposition: Hyperkalemia has been corrected. Once corrected Patient will likely be transferred to a fdc facility in the next 24-48 hours. We are now awaiting insurance approval for the wound VAC at [facility]. Apparently there has been insurance approval for hyperbaric oxygen. Pain Evaluation: Adequate Pain Control GI Prophylaxis: Not indicated VTE Prophylaxis: Theraputic Anticoag with Warfarin VTE Mechanical Devices: Intermittant Pneumatic CD Resuscitation Status: CPR: Attempt Resuscitation Stan Doe MD Jan 23, 2017 23:39
[2017-01-24] VITALS (9 sets, daily range): BP systolic 157–194; BP diastolic 77–84; PULSE 66–89; RESP 16–18; O2SAT 92–97
[2017-01-24] MEDS: Sodium Chloride LOK Flush 10 mL Syringe IVFLUSH SCH ×3 (00:30→16:30)
[2017-01-24] MEDS: Piperacillin-Tazo 3.375 Gm Inj 3.375 GM in Dextrose 5% Minibag Plus 50 ML IV SCH ×3 (03:59→17:55)
[2017-01-24 05:59] LABS: INR 2.92 ratio
--- NOTE | 2017-01-24 08:36 | PCM.PHAPRO ---
Progress -Jan 14-Jan 23-Jan 24-Jan 1.64 2.07 2.72 2.92 0.15 0.43 0.65 0.2 7.5 MG 5MG 5MG 5 Milton Franco Pharm.D Jan 24, 2017 08:36
[2017-01-24] MEDS: Insulin LISPRO 300 Unit/3 mL Inj SUBQ SCH ×7 (09:16→22:00)
[2017-01-24] MEDS ORDERED: oxyCODONE-Acetamin 5-325 mg Tablet PO PRN (10:45)
--- NOTE | 2017-01-24 12:14 | PCM.PNNEPH ---
Subjective Date of Service Jan 24, 2017 Subjective We will follow the patient's condition continues to improve. His blood pressures are better but still have ranged between 130s and 170 systolic. The last 24 hours she has had 1838 in and 0 out. He denies any chest pain, shortness of breath nausea or vomiting. This morning his sodium is 142, potassium 4.5, chloride 105, bicarbonate 27, BUN and creatinine were 34 and 2.04 which is slightly increased. Exam Vital Signs Vital Sign - Last Date Time Temp Pulse Resp B/P Pulse Ox O2 Delivery O2 Flow Rate FiO2 01/24/17 10:03 Supplement Oxygen 01/24/17 09:49 36.8 85 18 186/84 95 2.00 Intake and Output 01/23/17 01/23/17 01/24/17 Cumulative From/Thru 15:00 23:00 07:00 01/03/17 11:59 - 01/24/17 05:58 Intake Total 934 ml 143 ml 65981 ml Output Total 1100 ml 65455 ml Balance -166 ml 143 ml 55117 ml Intake Oral 840 ml 52927 ml IV Total 94 ml 143 ml 37640 ml TPN/PPN 100 ml Output Urine Total 1100 ml 22332 ml Estimated Blood Loss 30 ml # Voids 8 # Bowel Movements 16 Exam Neck is supple without adenopathy, thyromegaly, or jugular venous distention. Lungs are clear to auscultation. Heart is regular and rhythmical with a soft systolic murmur. Abdomen is soft without any tenderness rebound guarding masses or hepatosplenomegaly. Extremities do not show any evidence of any clubbing, cyanosis, or edema. Skin turgor is good. Lab and Diagnostics Result Diagram: 01/23/17 0600 01/24/17 0535 Microbiology Specimen: [id number] Collected: 01/03/17 Status: COMP Req#: [id number] Received: 01/03/17 Source: BLOOD Sp Desc : KYLER Nichols Dr: Nader Gordon MD Ordered: ARTHUR Comments: Collected by Nurse/Unit? Y/N N Procedure Result Verified Site Microbiology JAYDE CULTURE BLOOD Final 01/06/17-07 Organism 1 STAPHYLOCOCCUS AUREUS GRAM STAIN RESULT GRAM POSITIVE COCCI ?STAPH BC BOTTLE Isolated from Aerobic Bottle of Set Drawn DATE CALLED: 01/04/17 TIME CALLED: 0631 CALLED BY: SIA FLOOR/DOCTOR: WAQAS Gipson BC READ BACK Y TYPE OF DRAW NURSE COLLLECT TYPE NOT SPECIFIED TIME OF POSITIVITY 0600 GRAM STAIN RESULT GRAM POSITIVE COCCI ?STAPH BC BOTTLE2 Isolated from Anaerobic Bottle of Set Drawn DATE CALLED: 01/04/17 TIME CALLED: 1112 CALLED BY: SIA FLOOR/DOCTOR: BHANU Yarbrough BC READ BACK Y TYPE OF DRAW NURSE COLLECT TYPE NOT INDICATED TIME OF POSITIVITY 1050 STAPHYLOCOCCUS AUREUS Oxacillin Susceptible Penicillin Resistant Staph spp. are Susceptible to Penicillin stable penicillins, Blactam/Blactamase inhibitor combinations, antistaphyloccal cephems, and carbapenems. ISOLATED FROM FOUR OF FOUR BOTTLES COLLECTED 01/03/17. 1. STAPHYLOCOCCUS AUREUS M.I.C Interp --------- ------ * CEFAZOLIN S * CLINDAMYCIN <=0.25 S * ERYTHROMYCIN <=0.25 S CONTINUED ON NEXT PAGE RUN DATE: 01/06/[address] [facility] LIVE PAGE 2 RUN TIME: 0700 Specimen Inquiry PHYSICIAN Patient: DARA OLIVAS [id number] (Continued) Specimen: [id number] Collected: 01/03/17 Received: 01/03/17 (Continued) Procedure Result Verified Site JAYDE CULTURE BLOOD Final (continued) 01/06/17-699 1. STAPHYLOCOCCUS AUREUS (continued) Sharri Interp --------- ------ * LINEZOLID 2 S * MOXIFLOXACIN <=0.25 S * OXACILLIN JAYDE 0.5 S * RIFAMPIN <=0.5 S * TETRACYCLINE <=1 S * TRIMETHOPRIM/SULFAMETHOXAZOLE <=10 S * VANCOMYCIN <=0.5 S Name: DARA OLIVAS Age/Sex: 71/M Attend Dr: Luigi Arrieta MD Acct: [id number] Unit: [id number] Status: [place] [facility] [place]01/03[place] Disch: Specimen: [id number] Collected: 01/05/17 Status: CATRACHITO Req#: [id number] Received: 01/05/17 Source: FOOT Sp Desc : Subm Dr: Jeanne Key DPM Ordered: CS & ANAC & Comments: Collected by Nurse/Unit? Y/N Y Comment: RIGHT FOOT, DEEP CULTURE Procedure Result Verified Site Microbiology JAYDE GS (GRAM STAIN) Final 01/05/17 GRAM STAIN RESULT NO POLYS SEEN FEW GRAM POS COCCI JAYDE CULT AEROBIC Final 01/12/17 Organism 1 STAPHYLOCOCCUS AUREUS COLONY COUNT/QUANTITY HEAVY GROWTH Oxacillin Susceptible Penicillin Resistant Staph spp. are Susceptible to Penicillin stable penicillins, Blactam/Blactamase inhibitor combinations, antistaphyloccal cephems, and carbapenems. 1. STAPHYLOCOCCUS AUREUS M.I.C Interp --------- ------ * CEFAZOLIN S * CLINDAMYCIN <=0.25 S * ERYTHROMYCIN <=0.25 S * LINEZOLID 2 S * MOXIFLOXACIN <=0.25 S * OXACILLIN JAYDE 0.5 S * RIFAMPIN <=0.5 S * TETRACYCLINE <=1 S * TRIMETHOPRIM/SULFAMETHOXAZOLE <=10 S * VANCOMYCIN <=0.5 S ANAEROBIC CULTURE Final 01/12/17 No anaerobes isolated Laboratory Tests 72 Hours Test 01/06/17 19:59 01/07/17 03:10 01/08/17 03:00 01/09/17 02:55 Urine Color Yellow (YELLOW) Urine Appearance Hazy (CLEAR,HAZY) Urine pH 5.0 (5.0-8.0) Urine Specific [place] 1.020 (1.003-1.035) Urine Protein 30mg/dL (NEG,TRACE) Urine Glucose (UA) Negativemg/dL (NEGATIVE) Urine Ketones Negativemg/dL (NEGATIVE) Urine Occult Blood Small (NEGATIVE) Urine Nitrite Negative (NEGATIVE) Urine Bilirubin Negative (NEGATIVE) Urine Urobilinogen Normalmg/dL (NORMAL) Urine Leukocyte Esterase Negative (NEGATIVE) Urine RBC 0-2/hpf (0-2) Urine WBC 0-5/hpf (0-5) Urine Epithelial Cells Occasional/hpf (NONE-MOD) Urine Crystals Amorphous urates (NONE Urine Bacteria None/hpf (NONE-FEW) Urine Hyaline Casts None/lpf (NONE) Urine Granular Casts None seen (NONE SEEN) Urine Waxy Casts None seen (NONE SEEN) Urine Red Blood Cell Casts None seen (NONE SEEN) Urine White Blood Cell Casts None seen (NONE SEEN) Urine Mucus None seen (None Seen) Urine Trichomonas None seen (NONE SEEN) Urine Yeast None (NONE SEEN) Urinalysis Comment None Urine Culture Reflexed Not indicated White Blood Count 10.0th/mm3 (3.8-10.1) 10.9th/mm3 (3.8-10.1) 9.6th/mm3 (3.8-10.1) Red Blood Count 3.44mil/mm3 (4.40-5.80) 3.50mil/mm3 (4.40-5.80) 3.28mil/mm3 (4.40-5.80) Hemoglobin 10.2g/dL (13.8-17.2) 10.4g/dL (13.8-17.2) 9.5g/dL (13.8-17.2) Hematocrit 31.7% (41.0-50.0) 31.8% (41.0-50.0) 29.7% (41.0-50.0) Mean Corpuscular Volume 92.2fL (81-100) 90.9fL (81-100) 90.5fL (81-100) Mean Corpuscular Hemoglobin 29.7pg (27.0-35.0) 29.7pg (27.0-35.0) 29.0pg (27.0-35.0) Mean Corpuscular Hemoglobin Concent 32.2% (32.0-37.0) 32.7% (32.0-37.0) 32.0% (32.0-37.0) Red Cell Distribution Width 15.3% (12.3-15.4) 14.9% (12.3-15.4) 14.9% (12.3-15.4) Platelet Count 208bil/L (150-400) 287bil/L (150-400) 312bil/L (150-400) Neutrophils (%) (Auto) 73.2% (40-74) 77.9% (40-74) 74.0% (40-74) Lymphocytes (%) (Auto) 11.4% (14-46) 9.2% (14-46) 12.4% (14-46) Monocytes (%) (Auto) 12.6% (4-12) 10.9% (4-12) 11.5% (4-12) Eosinophils (%) (Auto) 2.2% (0-5) 1.3% (0-5) 1.6% (0-5) Basophils (%) (Auto) 0.1% (0-3) 0.2% (0-3) 0.1% (0-3) Prothrombin Time 38.9sec (8.1-12.5) 38.7sec (8.1-12.5) 43.1sec (8.1-12.5) Prothromb Time International Ratio 3.54ratio 3.53ratio 3.92ratio Sodium Level 134mEq/L (134-144) 133mEq/L (134-144) 136mEq/L (134-144) Potassium Level 4.8mEq/L (3.5-5.2) 4.7mEq/L (3.5-5.2) 4.4mEq/L (3.5-5.2) Chloride Level 102mEq/L (97-108) 102mEq/L (97-108) 106mEq/L (97-108) Carbon Dioxide Level 19mmol/L (18-29) 18mmol/L (18-29) 19mmol/L (18-29) Blood Urea Nitrogen 53mg/dL (8-27) 50mg/dL (8-27) 52mg/dL (8-27) Creatinine 1.83mg/dL (0.76-1.27) 1.79mg/dL (0.76-1.27) 1.75mg/dL (0.76-1.27) Estimat Glomerular Filtration Rate 39mL/min (>59) 40mL/min (>59) 41mL/min (>59) Glucose Level 348mg/dL (60-99) 273mg/dL (60-99) 247mg/dL (60-99) Calcium Level 7.9mg/dL (8.5-10.1) 8.0mg/dL (8.5-10.1) 7.9mg/dL (8.5-10.1) Procalcitonin 3.58ng/mL (0.00-0.08) 3.22ng/mL (0.00-0.08) X-Rays, CTs and MRIs PROCEDURE: X-RAY RIGHT FOOT COMPLETE, MINIMUM THREE VIEWS ([id number]) INDICATIONS: POST SURGERY ON RIGHT FOOT TECHNIQUE: 3 views of the foot were acquired. COMPARISON: 01/05/2017 FINDINGS: Bones: First and second metatarsals amputations show mild bony resorption at the end of the bony stumps. Margins appear sharp or on the lateral projection. Soft tissues: Postoperative changes of the soft tissues show interval improvement with diminished swelling and artifact. IMPRESSION: Expected postoperative changes with progression since last exam. Dictated by: Olman Sim M.D. on 01/15/2017 at 16:27 Approved by: Olman Sim M.D. on 01/15/2017 at 16:30 CT brain 1. No acute intracranial abnormalities. 2. Cerebral volume loss and chronic microvascular ischemic change Dictated by: Milton Bardales M.D. on 01/03/2017 at 12:54 Chest x-ray IMPRESSION: No acute cardiopulmonary disease. Dictated by: Milton Bardales M.D. on 01/03/2017 at 13:55 Venous duplex IMPRESSION: No deep venous thrombosis in the right lower extremity. Dictated by: Milton Bardales M.D. on 01/03/2017 at 12:40 01/04 PROCEDURE: X-RAY RIGHT FOOT COMPLETE, MINIMUM THREE VIEWS ([id number]) IMPRESSION: Worsening osteomyelitis involving the first metatarsal head with gas within the adjacent soft tissues as well as throughout the dorsal aspect of the soft tissues. Although the gas may be related to recent instrumentation, developing necrotizing fasciitis cannot be excluded and clinical correlation and followup is recommended. Dr. Key given results at 1108 hours on 01/05/2017. Dictated by: Snug VELAZCO Interpreted: Rhona Paige MD on 01/05/2017 at 10:56 01/05 PROCEDURE: X-RAY RIGHT FOOT COMPLETE, MINIMUM THREE VIEWS ([id number]) IMPRESSION: Interval postoperative changes of the right forefoot as described. No radiopaque foreign bodies. Dictated by: Ronal Galindo M.D. on 01/05/2017 at 15:58 01/06 PROCEDURE: US RENAL SONOGRAM 1. Left renal inferior exophytic cyst otherwise normal kidneys. 2. 707 cc prevoid urinary volume and postvoid residual cannot be assessed. Cardiac Echo Impressions Last echo 04/06/16 Interpretation Summary Left ventricular wall thickness is mild-moderately increased. Assessment of diastolic parameters indicates a relaxation abnormality of the left ventricle, consistent with normal filling pressures. The right ventricle is normal in size and function. Pulmonary artery pressures cannot be estimated because of the lack of a measurable TR jet velocity. Both atria are normal in size. There is no significant valvular heart disease. The aortic root is normal size. The aortic arch is normal in size. TTE 01/05/17 The study quality was technically difficult. A contrast injection of Definity was performed to improve assessment of LV function. Left ventricular ejection fraction is estimated to be 50%. Apical hypokinesis is suspected, LVEF is slightly lower on this exam. The right ventricle is normal size. Right ventricular systolic function is mildly reduced. The right ventricular systolic pressure is estimated at 25 mmHg assuming a right atrial pressure of 8 mm Hg. In an off axis view there is an echodensity along the superior aspect of the IAS, this could be an artifact. A [place] can hlep elucidate this further, or a limited echo to re evaluate the RA may be requested. [place] 01/07/17 The left ventricular ejection fraction is grossly normal. The interatrial septum is intact with no evidence for an atrial septal defect. No evidence of endocarditis. No mass seen in RA, TTE finding was artifactual. Plan Impression Impression #1 COPD stage III number to diabetic nephropathy #3 hypertension with hypertensive heart disease and hypertensive nephrosclerosis #4 anemia secondary to chronic kidney disease recommendations #1 which give him an additional dose of Aranesp and continue to follow his blood pressures and labs. Anirudh Land DO Jan 24, 2017 12:14
[2017-01-24] MEDS ORDERED: Darbepoetin Alfa 60 mCg/0.3 mL Inj SUBQ ONE (12:15)
--- NOTE | 2017-01-24 14:26 | NUR ---
Social Work: Multidisciplinary Rounds/Continued Discharge Planning D: EMR reviewed. Pt is on day 21 of hospitalization for hypoglycemia, multiple falls, RLE cellulitis per H&P. Per MD in rounds, pt's status has not changed and is likely to discharge tomorrow once wound vac is authorized. Pt is nearing discharge readiness as soon as pt's authorization for wound vac at [facility] [place] is obtained. Per MD in rounds, pt is cleared to transfer to SNF. MD aware that wound vac authorization can't be reviewed over the weekend and pt likely to stay until Wednesday. Interpretive Program Coordinator - faxed wound vac authorization form to Liv at [facility] and spoke with her about insurance authorization for transfer to SNF - this has been approved/authorized. Liv will update us once wound vac authorization is received so pt can transfer to [facility]. Per Interpretive Program Coordinator on 01/22, pt's wound vac has not been authorized (pending) and pt likely to remain at hospital through Wednesday when insurance can review wound vac for authorization. Pt is agreeable to SNF discharge. Paperwork is in chart and PASRR is faxed and completed. SW will continue to follow. A: Pt for whom a SNF has been deemed medically necessary. P: Pt to discharge to [facility] with Dr. Nascimento to follow. [facility] and Interpretive Program Coordinator working on wound vac authorization - this can't be done over the weekend, pt likely to remain hospitalized until wound vac is reviewed for authorization on Wednesday. SNF stay authorization has been obtained. Paperwork and PASRR are in chart and PASRR is faxed. SW will continue to follow. YINA Hill
[2017-01-24] MEDS ORDERED: DARBEPOETIN ALFA 100 MCG/0.5 ML SUBQ ONE (14:40)
--- NOTE | 2017-01-24 18:27 | NUR ---
Rough night pt did not sleep d/t uncontrolled pain and woke up agitated about his CPOX. MD consulted and Oxycodone added as an option for the future incase his pain is inadequately controlled by the vicodin. Encouraged the pt to call us if his CPOx or any equipment was alarming so we could fix the problem. I also explained that during change of shift it gets loud and his nurse closed his door because of his poor night of sleep so he wouldn't be disturbed. Pt was satisfied with this discussion and the available options.
--- NOTE | 2017-01-24 21:39 | PCM.PNMED ---
Subjective Date of Service Jan 24, 2017 Subjective Patient has increased pain today and this was alleviated by some Percocet. Patient has no other new complaints. Exam Vital Signs Vital Sign - Last Date Time Temp Pulse Resp B/P Pulse Ox O2 Delivery O2 Flow Rate FiO2 01/24/17 20:17 38.0 84 18 176/77 92 Room Air 01/24/17 14:01 2.00 Intake and Output 01/23/17 01/23/17 01/24/17 Cumulative From/Thru 15:00 23:00 07:00 01/03/17 11:59 - 01/24/17 05:58 Intake Total 934 ml 143 ml 39468 ml Output Total 1100 ml 11323 ml Balance -166 ml 143 ml 29621 ml Intake Oral 840 ml 67333 ml IV Total 94 ml 143 ml 67050 ml TPN/PPN 100 ml Output Urine Total 1100 ml 58873 ml Estimated Blood Loss 30 ml # Voids 8 # Bowel Movements 16 Exam General: Patient is an no apparent distress at this time. He remains more awake and alert today. HEENT: Head is atraumatic and normocephalic. Eyes: Pupils are equally round and reactive to light and accommodation. Extraocular muscles are intact. Sclera are white, anicteric. Subconjunctival mucosa is pink. Ears and nose are unremarkable. Oropharynx: There is no mucosal lesions, there is no thrush, there is no pharyngitis. Neck: Is supple, there are no nodes, or masses or tenderness. Chest: Is clear to auscultation and percussion. There are no rales, rhonchi, wheezes or rubs. Heart: Rate, rhythm is regular. There is no murmur, rub or gallop. Abdomen: Good bowel sounds are present. Abdomen is soft, nontender, no organomegaly or masses were appreciated. Extremities: The right foot wound was examined while Dr. Key performed bedside debridement of the right foot on 01/19/2017. There was no necrotic tissue. The base of the fourth metatarsal and cuneiform bones were visible. There was a tendon visible. Other areas showed good granulation tissue. Currently there is a wound VAC in place with no significant changes. The left foot dressing is clean dry and intact. Neurologic: There were no focal neurological deficits. Cranial nerves II through XII are intact. There are no sensory or motor deficits. Patient is more lucid and less somnolent today Psychiatric: Patients mood is calm and he shows no sign of agitation. Genital: Deferred Rectal: Deferred Lab and Diagnostics Result Diagram: 01/23/17 0600 01/24/17 0535 Microbiology Specimen: [id number] Collected: 01/03/17 Status: CATRACHITO Warner#: [id number] Received: 01/03/17-124 Source: BLOOD Sp Desc : AA Subm Dr: Nader Gordon MD Ordered: Comments: Collected by Nurse/Unit? Y/N N Procedure Result Verified Site Microbiology JAYDE CULTURE BLOOD Final 01/06/17-0700 Organism 1 STAPHYLOCOCCUS AUREUS GRAM STAIN RESULT GRAM POSITIVE COCCI ?STAPH BC BOTTLE Isolated from Aerobic Bottle of Set Drawn DATE CALLED: 01/04/17 TIME CALLED: 0631 CALLED BY: SIA FLOOR/DOCTOR: WAQAS Gipson BC READ BACK Y TYPE OF DRAW NURSE COLLLECT TYPE NOT SPECIFIED TIME OF POSITIVITY 0600 GRAM STAIN RESULT GRAM POSITIVE COCCI ?STAPH BC BOTTLE2 Isolated from Anaerobic Bottle of Set Drawn DATE CALLED: 01/04/17 TIME CALLED: 1112 CALLED BY: SIA FLOOR/DOCTOR: BHANU Yarbrough BC READ BACK Y TYPE OF DRAW NURSE COLLECT TYPE NOT INDICATED TIME OF POSITIVITY 1050 STAPHYLOCOCCUS AUREUS Oxacillin Susceptible Penicillin Resistant Staph spp. are Susceptible to Penicillin stable penicillins, Blactam/Blactamase inhibitor combinations, antistaphyloccal cephems, and carbapenems. ISOLATED FROM FOUR OF FOUR BOTTLES COLLECTED 01/03/17. 1. STAPHYLOCOCCUS AUREUS M.I.C Interp --------- ------ * CEFAZOLIN S * CLINDAMYCIN <=0.25 S * ERYTHROMYCIN <=0.25 S CONTINUED ON NEXT PAGE RUN DATE: 01/06/17 [facility] LIVE PAGE 2 RUN TIME: 0700 Specimen Inquiry PHYSICIAN Patient: DARA OLIVAS [id number] (Continued) Specimen: [id number] Collected: 01/03/17-1220 Received: 01/03/17-124 (Continued) Procedure Result Verified Site JAYDE CULTURE BLOOD Final (continued) 01/06/17-699 1. STAPHYLOCOCCUS AUREUS (continued) M.I.C Interp --------- ------ * LINEZOLID 2 S * MOXIFLOXACIN <=0.25 S * OXACILLIN JAYDE 0.5 S * RIFAMPIN <=0.5 S * TETRACYCLINE <=1 S * TRIMETHOPRIM/SULFAMETHOXAZOLE <=10 S * VANCOMYCIN <=0.5 S Name: DARA OLIVAS Age/Sex: 71/M Attend Dr: Luigi Arrieta MD Acct: [id number] Unit: [id number] Status: ADM IN Location: [facility] [place] 1008-1 Re01/03/17 Disch: Specimen: [id number] Collected: 01/05/17-1323 Status: CATRACHITO Req#: [id number] Received: 06 Source: FOOT Sp Desc : Subm Dr: Jeanne Key DPM Ordered: CS & ANAC & GS Comments: Collected by Nurse/Unit? Y/N Y Comment: RIGHT FOOT, DEEP CULTURE Procedure Result Verified Site Microbiology JAYDE GS (GRAM STAIN) Final 01/05/17 GRAM STAIN RESULT NO POLYS SEEN FEW GRAM POS COCCI JAYDE CULT AEROBIC Final 01/12/17 Organism 1 STAPHYLOCOCCUS AUREUS COLONY COUNT/QUANTITY HEAVY GROWTH Oxacillin Susceptible Penicillin Resistant Staph spp. are Susceptible to Penicillin stable penicillins, Blactam/Blactamase inhibitor combinations, antistaphyloccal cephems, and carbapenems. 1. STAPHYLOCOCCUS AUREUS M.I.C Interp --------- ------ * CEFAZOLIN S * CLINDAMYCIN <=0.25 S * ERYTHROMYCIN <=0.25 S * LINEZOLID 2 S * MOXIFLOXACIN <=0.25 S * OXACILLIN JAYDE 0.5 S * RIFAMPIN <=0.5 S * TETRACYCLINE <=1 S * TRIMETHOPRIM/SULFAMETHOXAZOLE <=10 S * VANCOMYCIN <=0.5 S ANAEROBIC CULTURE Final 01/12/17 No anaerobes isolated Laboratory Tests 72 Hours Test 01/06/17 19:59 01/07/17 03:10 01/08/17 03:00 01/09/17 02:55 Urine Color Yellow (YELLOW) Urine Appearance Hazy (CLEAR,HAZY) Urine pH 5.0 (5.0-8.0) Urine Specific [place] 1.020 (1.003-1.035) Urine Protein 30mg/dL (NEG,TRACE) Urine Glucose (UA) Negativemg/dL (NEGATIVE) Urine Ketones Negativemg/dL (NEGATIVE) Urine Occult Blood Small (NEGATIVE) Urine Nitrite Negative (NEGATIVE) Urine Bilirubin Negative (NEGATIVE) Urine Urobilinogen Normalmg/dL (NORMAL) Urine Leukocyte Esterase Negative (NEGATIVE) Urine RBC 0-2/hpf (0-2) Urine WBC 0-5/hpf (0-5) Urine Epithelial Cells Occasional/hpf (NONE-MOD) Urine Crystals Amorphous urates (NONE Urine Bacteria None/hpf (NONE-FEW) Urine Hyaline Casts None/lpf (NONE) Urine Granular Casts None seen (NONE SEEN) Urine Waxy Casts None seen (NONE SEEN) Urine Red Blood Cell Casts None seen (NONE SEEN) Urine White Blood Cell Casts None seen (NONE SEEN) Urine Mucus None seen (None Seen) Urine Trichomonas None seen (NONE SEEN) Urine Yeast None (NONE SEEN) Urinalysis Comment None Urine Culture Reflexed Not indicated White Blood Count 10.0th/mm3 (3.8-10.1) 10.9th/mm3 (3.8-10.1) 9.6th/mm3 (3.8-10.1) Red Blood Count 3.44mil/mm3 (4.40-5.80) 3.50mil/mm3 (4.40-5.80) 3.28mil/mm3 (4.40-5.80) Hemoglobin 10.2g/dL (13.8-17.2) 10.4g/dL (13.8-17.2) 9.5g/dL (13.8-17.2) Hematocrit 31.7% (41.0-50.0) 31.8% (41.0-50.0) 29.7% (41.0-50.0) Mean Corpuscular Volume 92.2fL (81-100) 90.9fL (81-100) 90.5fL (81-100) Mean Corpuscular Hemoglobin 29.7pg (27.0-35.0) 29.7pg (27.0-35.0) 29.0pg (27.0-35.0) Mean Corpuscular Hemoglobin Concent 32.2% (32.0-37.0) 32.7% (32.0-37.0) 32.0% (32.0-37.0) Red Cell Distribution Width 15.3% (12.3-15.4) 14.9% (12.3-15.4) 14.9% (12.3-15.4) Platelet Count 208bil/L (150-400) 287bil/L (150-400) 312bil/L (150-400) Neutrophils (%) (Auto) 73.2% (40-74) 77.9% (40-74) 74.0% (40-74) Lymphocytes (%) (Auto) 11.4% (14-46) 9.2% (14-46) 12.4% (14-46) Monocytes (%) (Auto) 12.6% (4-12) 10.9% (4-12) 11.5% (4-12) Eosinophils (%) (Auto) 2.2% (0-5) 1.3% (0-5) 1.6% (0-5) Basophils (%) (Auto) 0.1% (0-3) 0.2% (0-3) 0.1% (0-3) Prothrombin Time 38.9sec (8.1-12.5) 38.7sec (8.1-12.5) 43.1sec (8.1-12.5) Prothromb Time International Ratio 3.54ratio 3.53ratio 3.92ratio Sodium Level 134mEq/L (134-144) 133mEq/L (134-144) 136mEq/L (134-144) Potassium Level 4.8mEq/L (3.5-5.2) 4.7mEq/L (3.5-5.2) 4.4mEq/L (3.5-5.2) Chloride Level 102mEq/L (97-108) 102mEq/L (97-108) 106mEq/L (97-108) Carbon Dioxide Level 19mmol/L (18-29) 18mmol/L (18-29) 19mmol/L (18-29) Blood Urea Nitrogen 53mg/dL (8-27) 50mg/dL (8-27) 52mg/dL (8-27) Creatinine 1.83mg/dL (0.76-1.27) 1.79mg/dL (0.76-1.27) 1.75mg/dL (0.76-1.27) Estimat Glomerular Filtration Rate 39mL/min (>59) 40mL/min (>59) 41mL/min (>59) Glucose Level 348mg/dL (60-99) 273mg/dL (60-99) 247mg/dL (60-99) Calcium Level 7.9mg/dL (8.5-10.1) 8.0mg/dL (8.5-10.1) 7.9mg/dL (8.5-10.1) Procalcitonin 3.58ng/mL (0.00-0.08) 3.22ng/mL (0.00-0.08) X-Rays, CTs and MRIs PROCEDURE: X-RAY RIGHT FOOT COMPLETE, MINIMUM THREE VIEWS ([id number]) INDICATIONS: POST SURGERY ON RIGHT FOOT TECHNIQUE: 3 views of the foot were acquired. COMPARISON: 01/05/2017 FINDINGS: Bones: First and second metatarsals amputations show mild bony resorption at the end of the bony stumps. Margins appear sharp or on the lateral projection. Soft tissues: Postoperative changes of the soft tissues show interval improvement with diminished swelling and artifact. IMPRESSION: Expected postoperative changes with progression since last exam. Dictated by: Olman Sim M.D. on 01/15/2017 at 16:27 Approved by: Olman Sim M.D. on 01/15/2017 at 16:30 CT brain 1. No acute intracranial abnormalities. 2. Cerebral volume loss and chronic microvascular ischemic change Dictated by: Milton Bardales M.D. on 01/03/2017 at 12:54 Chest x-ray IMPRESSION: No acute cardiopulmonary disease. Dictated by: Milton Bardales M.D. on 01/03/2017 at 13:55 Venous duplex IMPRESSION: No deep venous thrombosis in the right lower extremity. Dictated by: Milton Bardales M.D. on 01/03/2017 at 12:40 01/04 PROCEDURE: X-RAY RIGHT FOOT COMPLETE, MINIMUM THREE VIEWS ([id number]) IMPRESSION: Worsening osteomyelitis involving the first metatarsal head with gas within the adjacent soft tissues as well as throughout the dorsal aspect of the soft tissues. Although the gas may be related to recent instrumentation, developing necrotizing fasciitis cannot be excluded and clinical correlation and followup is recommended. Dr. Key given results at 1108 hours on 01/05/2017. Dictated by: Sung Tejada [facility] Interpreted: Rhona Paige MD on 01/05/2017 at 10:56 01/05 PROCEDURE: X-RAY RIGHT FOOT COMPLETE, MINIMUM THREE VIEWS ([id number]) IMPRESSION: Interval postoperative changes of the right forefoot as described. No radiopaque foreign bodies. Dictated by: Ronal Galindo M.D. on 01/05/2017 at 15:58 01/06 PROCEDURE: US RENAL SONOGRAM 1. Left renal inferior exophytic cyst otherwise normal kidneys. 2. 707 cc prevoid urinary volume and postvoid residual cannot be assessed. Cardiac Echo Impressions Last echo 04/06/16 Interpretation Summary Left ventricular wall thickness is mild-moderately increased. Assessment of diastolic parameters indicates a relaxation abnormality of the left ventricle, consistent with normal filling pressures. The right ventricle is normal in size and function. Pulmonary artery pressures cannot be estimated because of the lack of a measurable TR jet velocity. Both atria are normal in size. There is no significant valvular heart disease. The aortic root is normal size. The aortic arch is normal in size. TTE 01/05/17 The study quality was technically difficult. A contrast injection of Definity was performed to improve assessment of LV function. Left ventricular ejection fraction is estimated to be 50%. Apical hypokinesis is suspected, LVEF is slightly lower on this exam. The right ventricle is normal size. Right ventricular systolic function is mildly reduced. The right ventricular systolic pressure is estimated at 25 mmHg assuming a right atrial pressure of 8 mm Hg. In an off axis view there is an echodensity along the superior aspect of the IAS, this could be an artifact. A VIRGINIA can hlep elucidate this further, or a limited echo to re evaluate the RA may be requested. V[place] 01/07/17 The left ventricular ejection fraction is grossly normal. The interatrial septum is intact with no evidence for an atrial septal defect. No evidence of endocarditis. No mass seen in RA, TTE finding was artifactual. Assessment & Plan 71-year-old male with recent amputation of his right big toe and insulin- dependent diabetes who presents after being found down, with hypoglycemia and increased erythema of the right lower extremity consistent with cellulitis. Right foot cellulitis with osteomyelitis, present on admission, active -The patient had serial cultures+MSSA. s/p 2nd digit amputation, serial debridement by Dr. Key postop day #8 -Patient is status post debridment of infected soft tissue and bone, right foot , 01/15/17, postop day #7. Dr. Key performed further debridement of 01/19/2017 ( please see her note). -We will continue Zosyn per Dr. Edwards Recommendation, continue to 02/14/17. - I have discussed case with Dr. Edwards and appreciate his time and expertise. We will follow his recommendations. - We will check CBC to check white blood cell count and differential in a.m. - Pro calcitonin level remains elevated at 0.20 and sedimentation rate is greater than 140. Type 2 Diabetes with peripheral neuropathy, present on admission, active - The patient had a diabetic foot ulcer, Nephropathy and retinopathy; present on admission , A1c 8.9, - The patient's glucose is in target range with current regimen. - We will continue Lantus, which was increased to 20AM, 30 at night,added 5 units lispro TIDAC + high dose nutritional scale lispro. - We will continue to hold Victoza sq Hypertension, present on admission, stable -We have discontinued Losartan and spironolactone due to hyperkalemia, which has stabilized. -Nephrology was consulted and Dr. Land's input, time and expertise is greatly appreciated. He has added lisinopril 10 mg by mouth daily at bedtime, along with chlorthalidone 25 mg by mouth daily. . -We will continue Amlodipine 10 mg daily, Lasix 20 mg daily, -We have increased Coreg from 12.5 mg daily to 12.5 bid - We will re-check electrolytes in a.m. Altered mental status and Delirium, resolved Patient had decline in mental function after VIR[place]IA. Mentation seemed to be declining as patient is unable to respond correctly where he was or what year it was. He also had some slurred speech. It should be restated that prior to admission, patient had fallen and stated he did hit his head on this head board and had his head wedged in between. Head CT at that time showed no acute intracranial abnormalities. - DDx: Included stroke secondary to hemorrhage, medication side effects of versed and also considering reduced clearance of versed due to poor kidney function, encephalitis. - Likely secondary to medication side effects, but given history, ordered stat CT head. - Head CT unremarkable. Will decrease pain medications, cluster nursing care, ask for frequent reorientation and make sure there is daylight in room during days. - In the afternoon of 01/09/17, evaluated patient and his mentation is back to baseline since first seen on 01/04/17. The AMS and delirium was likely medication related as patient was given fentanyl for pain, versed for V[place], flexiril for spasms. This happened within a short time period on top of poor kidney function. - The patient's mentation is now back to baseline, however he was quite somnolent today. Shortness of breath, resolved -Patient had increased coughing and shortness of breath 01/08/17. -Chest X-ray showed Bibasilar atelectasis versus aspiration or pneumonia. - Patient has been noted to be aspirating per speech evaluation and should have supervised PO intake. - Patient currently on Zosyn for osteomyelitis which will also treat aspiration pneumonitis - Acapella and Incentive spirometry has been ordered. - Recheck CBC periodically. Acute on chronic kidney injury; present on admission; Resolved - Baseline Cr 1.3-1.7. Due to Hypertensive nephrosclerosis and Diabetic nephropathy - Renal ultrasound showed Pre-void bladder volume is 778 mL. - Patient has Milton as of 01/06/17. Improved BUN and Cr afterwards. - We will continue to avoid nephrotoxic insults, monitor urine output - Fluids discontinued 01/08/17 - As no improvement in renal function we have asked nephrology to see. Dr. Land was kind enough to see the patient and appreciate his time and expertise. We will follow his recommendations. Lisinopril has been added 10 mg by mouth daily at bedtime. Chlorthalidone 25 mg by mouth daily has been added as well as sodium bicarbonate by mouth twice a day. Since then renal function appears to have stabilized. Persistent hyperkalemia, secondary to poor renal function. Resolved - We have given Kayexalate 2 and potassium has normalized. - We will repeat electrolytes in a.m. - We will continue off the spironolactone. - We will avoid any potassium supplements. Patient to avoid orange juice as well. Paroxysmal Atrial fibrillation on Coumadin; present on admission; stable - The patient was monitored on telemetry till 01/09/17. Patient out of A. fib for several days prior. Patient can use to go in and out of atrial fibrillation. - We will continue rate control with Carvedilol - Continue warfarin per pharmacy - Daily INR. Ordered 2 units FFP to reduce INR below 2 prior to I&D. Patient only recieved 1 unit. Held second unit after surgery on 01/05. Severe Sepsis - Resolved Secondary to RLE cellulitis and bacteremia found on admission. Patient on admission had leukocytosis of 24.3, tachycardia and tachypnea. Leukocytosis has been improving daily now down to 13.2. RLE very hot, erythematous and edematous , with fluctuant mass on base of RLE 1st digit. This has been improving throughout his admission with treatment initially on ancef and now on zosyn. Recent cultures in September show MSSA pansensitive. Nasal MRSA swab negative. Blood cultures have also been grown gram positive cocci likely to be staph aureus. - Patient no longer tachycardic or tachypneic. Leukocytosis is down to 12.3. - Appreciate Dr. Key consult and ID consult. - I/D done 01/[address] Key drained approximately 50 cc of pustular discharge. Patient had extensive debridement and amputation of right second toe in OR 01/05. She had further debridement again 01/18/2017. Patient had further bedside debridement today and 01/20/2017. - Discontinued Ancef 01/05/17 - Continued zosyn, start date 01/04/17. Will transition to Ancef + Flagyl 6/[address] Edwards recommendation. Plan is for treatment of antibiotics for 6 weeks for osteomyelitis. Treatment is to continue through February 15. - TTE showed EF of 50%, apical hypokineseis and an echodensity along the superior aspect of the IAS, which could be an artifact. V[place]IA would help elucidate this further. Per conversation with caridiologist, differential includes myxoma, so will proceed with VIR[place]IA for 01/07. - Follow CBC, BMP -Repeat procalcitonin trended down as above Hyperlipidemia - We will continue Atorvastatin 40 mg daily Acquired hypothyroidism - We will continue Synthroid 75 mcg daily Hypoglycemia, due to noncompliance; present on admission; Resolved - Pt has been without his glucometer; when obtained reading was "very high" likely due to above infection - Patient overdosed on Lantus, taking 2-3 times more than prescribed - Continue to monitor glucose Mild troponin elevation; present on admission; Resolved -Likely due to acute kidney injury -Now wnl Anion gap metabolic acidosis with lactic acidosis; present on admission; Resolved -Anion gap improved from 20 to 12, lactic acid trended to 1.0. - IV fluids were used initially when patient had limited PO intake. Acetaminophen for mild pain when necessary. Bowel regimen Senna and MiraLAX scheduled and PRN. Zofran when necessary for nausea and vomiting. SubQ heparin held for now. SCDs in place. High-risk medications: Warfarin Disposition: Hyperkalemia has been corrected. Patient will likely be transferred to a shelter facility in the next 24-48 hours. We are now awaiting insurance approval for the wound VAC at [facility]. Apparently there has been insurance approval for hyperbaric oxygen. Pain Evaluation: Adequate Pain Control GI Prophylaxis: Not indicated VTE Prophylaxis: Theraputic Anticoag with Warfarin VTE Mechanical Devices: Intermittant Pneumatic CD Resuscitation Status: CPR: Attempt Resuscitation Stan Doe MD Jan 24, 2017 21:39
[2017-01-24] MEDS: HYDROcodone-APAP 5-325 mg Tablet PO PRN (22:17)
[2017-01-24] MEDS: Insulin GLARgine 100 Unit/mL Syringe SUBQ SCH (22:18)
[2017-01-25] MEDS: Sodium Chloride LOK Flush 10 mL Syringe IVFLUSH SCH ×3 (00:30→16:04)
[2017-01-25 00:33] VITALS: BP 165/76; PULSE 78; RESP 18; O2SAT 96
[2017-01-25] MEDS: Piperacillin-Tazo 3.375 Gm Inj 3.375 GM in Dextrose 5% Minibag Plus 50 ML IV SCH ×3 (01:02→16:04)
--- NOTE | 2017-01-25 03:41 | NUR ---
Pain Patient has had very little pain this shift. Patient has been resting quietly in room for most of shift. Patient stated he was beginning to feel the pain in his foot start to increase so pain medication was given in order to stay ahead of the pain, so that patient could get a good nights sleep.
[2017-01-25 05:27] VITALS: BP 176/78; PULSE 72; RESP 18; O2SAT 96
[2017-01-25 05:32] LABS: BASOPHILS % (AUTO) 0.5 % (0-3); EOSINOPHILS % (AUTO) 6.9 % (0-5); MONOCYTES % (AUTO) 11.1 % (4-12); Mean Corpuscular Hemoglobin 29.2 pg (27.0-35.0); Mean Corpuscular Volume 94.9 fL (81-100); NEUTROPHILS % (AUTO) 55.5 % (40-74); Platelet Count 211 bil/L (150-400)
[2017-01-25 05:47] LABS: INR 2.92 ratio
[2017-01-25 05:55] LABS: Magnesium 2.1 mg/dL (1.6-2.6)
[2017-01-25] MEDS: Insulin GLARgine 100 Unit/mL Syringe SUBQ SCH (08:27)
[2017-01-25] MEDS: Insulin LISPRO 300 Unit/3 mL Inj SUBQ SCH ×6 (08:28→16:20)
[2017-01-25 08:37] VITALS: BP 198/71; PULSE 83; RESP 20; O2SAT 93
[2017-01-25 09:50] VITALS: BP 152/74; PULSE 68; RESP 18; O2SAT 92
[2017-01-25 10:04] VITALS: PULSE 74
--- NOTE | 2017-01-25 11:19 | NUR ---
Spoke with Liv and she is planning to have wound vac in this afternoon, she has spoke with wound care nurse and she is planning to be in with patient around 1330 and then patient will have HBWC. Liv is planning for tentative 1700 clam picker. Paged for orders. Updated YINA SALDIVAR and RN Addendum: 01/25/17 at 1544 by REANNA WASHINGTON CM Faxed orders to [facility] and placed copy in the chart. Confirmed with Liv that transport would come at 1700 or after. Updated RN Shelly BRAN
--- NOTE | 2017-01-25 12:14 | PCM.PNNEPH ---
Subjective Date of Service Jan 25, 2017 Subjective He had temperature last night, 38.0 Kidney function relatively stable, serum BUN and creatinine slightly elevated. He reports no history of chest pain shortness of breath and palpitations. Exam Vital Signs Vital Sign - Last Date Time Temp Pulse Resp B/P Pulse Ox O2 Delivery O2 Flow Rate FiO2 01/25/17 10:04 74 01/25/17 09:50 18 152/74 92 Room Air 01/25/17 08:37 36.8 01/25/17 05:27 2.00 Intake and Output 01/24/17 01/24/17 01/25/17 Cumulative From/Thru 15:00 23:00 07:00 01/03/17 11:59 - 01/25/17 06:38 Intake Total 800 ml 720 ml 400 ml 60957 ml Output Total 1050 ml 1200 ml 1450 ml 08529 ml Balance -250 ml -480 ml -1050 ml 99306 ml Intake Oral 800 ml 720 ml 400 ml 12308 ml IV Total 50988 ml TPN/PPN 100 ml Output Urine Total 1050 ml 1200 ml 1450 ml 06735 ml Estimated Blood Loss 30 ml # Voids 1 9 # Bowel Movements 0 0 16 Exam GENERAL: The patient in no apparent distress, and alert and oriented x3. HEENT: Head is normocephalic and atraumatic. Extraocular muscles are intact. Pupils are equal, round, and reactive to light and accommodation. Nares appeared normal. Mouth is well hydrated and without lesions. Mucous membranes are moist. Posterior pharynx clear of any exudate or lesions. NECK: Supple, no elevation of JVD, No carotid bruits. No lymphadenopathy or thyromegaly. LUNGS: Clear to auscultation, equal breath sounds bilaterally, no wheezing, no rhonchi no rales. HEART: Normal S1/S2, Regular rate and rhythm, no murmurs, rubs or gallops. 2+ pules throughout. ABDOMEN: Soft, nontender, and nondistended. Positive bowel sounds. No hepatosplenomegaly was noted. EXTREMITIES: 1+ edema, wound VAC on the right foot. . Lab and Diagnostics Result Diagram: 01/25/1751401/25/17514 Microbiology Specimen: [id number] Collected: 01/03/17 Status: COMP Req#: [id number] Received: 01/03/17-1248 Source: BLOOD Sp Desc : KYLER Nichols Dr: Nader Gordon MD Ordered: Comments: Collected by Nurse/Unit? Y/N N Procedure Result Verified Site Microbiology JAYDE CULTURE BLOOD Final 01/06/17-0700 Organism 1 STAPHYLOCOCCUS AUREUS GRAM STAIN RESULT GRAM POSITIVE COCCI ?STAPH BC BOTTLE Isolated from Aerobic Bottle of Set Drawn DATE CALLED: 01/04/17 TIME CALLED: 0631 CALLED BY: SIA FLOOR/DOCTOR: WAQAS iGpson BC READ BACK Y TYPE OF DRAW NURSE COLLLECT TYPE NOT SPECIFIED TIME OF POSITIVITY 0600 GRAM STAIN RESULT GRAM POSITIVE COCCI ?STAPH BC BOTTLE2 Isolated from Anaerobic Bottle of Set Drawn DATE CALLED: 01/04/17 TIME CALLED: 1112 CALLED BY: SIA FLOOR/DOCTOR: BHANU Yarbrough BC READ BACK Y TYPE OF DRAW NURSE COLLECT TYPE NOT INDICATED TIME OF POSITIVITY 1050 STAPHYLOCOCCUS AUREUS Oxacillin Susceptible Penicillin Resistant Staph spp. are Susceptible to Penicillin stable penicillins, Blactam/Blactamase inhibitor combinations, antistaphyloccal cephems, and carbapenems. ISOLATED FROM FOUR OF FOUR BOTTLES COLLECTED 01/03/17. 1. STAPHYLOCOCCUS AUREUS M.I.C Interp --------- ------ * CEFAZOLIN S * CLINDAMYCIN <=0.25 S * ERYTHROMYCIN <=0.25 S CONTINUED ON NEXT PAGE RUN DATE: 01/06/17 [facility] LIVE PAGE 2 RUN TIME: 699 Specimen Inquiry PHYSICIAN Patient: DARA OLIVAS [id number] (Continued) Specimen: [id number] Collected: 01/03/17-1220 Received: 01/03/17-124 (Continued) Procedure Result Verified Site JAYDE CULTURE BLOOD Final (continued) 01/06/17-07 1. STAPHYLOCOCCUS AUREUS (continued) Sharri Drake --------- ------ * LINEZOLID 2 S * MOXIFLOXACIN <=0.25 S * OXACILLIN JAYDE 0.5 S * RIFAMPIN <=0.5 S * TETRACYCLINE <=1 S * TRIMETHOPRIM/SULFAMETHOXAZOLE <=10 S * VANCOMYCIN <=0.5 S Name: DARA OLIVAS Age/Sex: 71/M Attend Dr: Luigi Arrieta MD Acct: [id number] Unit: [id number] Status: ADM IN Location: [facility] [place] 1008-1 Re01/03/17 Disch: Specimen: [id number] Collected: 01/05/17 Status: COMP Req#: [id number] Received: 01/05/17 Source: FOOT Sp Desc : Subm Dr: Jeanne Key DPM Ordered: CS & ANAC & GS Comments: Collected by Nurse/Unit? Y/N Y Comment: RIGHT FOOT, DEEP CULTURE Procedure Result Verified Site Microbiology JAYDE GS (GRAM STAIN) Final 01/05/17 GRAM STAIN RESULT NO POLYS SEEN FEW GRAM POS COCCI JAYDE CULT AEROBIC Final 01/12/17 Organism 1 STAPHYLOCOCCUS AUREUS COLONY COUNT/QUANTITY HEAVY GROWTH Oxacillin Susceptible Penicillin Resistant Staph spp. are Susceptible to Penicillin stable penicillins, Blactam/Blactamase inhibitor combinations, antistaphyloccal cephems, and carbapenems. 1. STAPHYLOCOCCUS AUREUS M.I.C Interp --------- ------ * CEFAZOLIN S * CLINDAMYCIN <=0.25 S * ERYTHROMYCIN <=0.25 S * LINEZOLID 2 S * MOXIFLOXACIN <=0.25 S * OXACILLIN JAYDE 0.5 S * RIFAMPIN <=0.5 S * TETRACYCLINE <=1 S * TRIMETHOPRIM/SULFAMETHOXAZOLE <=10 S * VANCOMYCIN <=0.5 S ANAEROBIC CULTURE Final 01/12/17 No anaerobes isolated Laboratory Tests 72 Hours Test 01/06/17 19:59 01/07/17 03:10 01/08/17 03:00 01/09/17 02:55 Urine Color Yellow (YELLOW) Urine Appearance Hazy (CLEAR,HAZY) Urine pH 5.0 (5.0-8.0) Urine Specific [place] 1.020 (1.003-1.035) Urine Protein 30mg/dL (NEG,TRACE) Urine Glucose (UA) Negativemg/dL (NEGATIVE) Urine Ketones Negativemg/dL (NEGATIVE) Urine Occult Blood Small (NEGATIVE) Urine Nitrite Negative (NEGATIVE) Urine Bilirubin Negative (NEGATIVE) Urine Urobilinogen Normalmg/dL (NORMAL) Urine Leukocyte Esterase Negative (NEGATIVE) Urine RBC 0-2/hpf (0-2) Urine WBC 0-5/hpf (0-5) Urine Epithelial Cells Occasional/hpf (NONE-MOD) Urine Crystals Amorphous urates (NONE Urine Bacteria None/hpf (NONE-FEW) Urine Hyaline Casts None/lpf (NONE) Urine Granular Casts None seen (NONE SEEN) Urine Waxy Casts None seen (NONE SEEN) Urine Red Blood Cell Casts None seen (NONE SEEN) Urine White Blood Cell Casts None seen (NONE SEEN) Urine Mucus None seen (None Seen) Urine Trichomonas None seen (NONE SEEN) Urine Yeast None (NONE SEEN) Urinalysis Comment None Urine Culture Reflexed Not indicated White Blood Count 10.0th/mm3 (3.8-10.1) 10.9th/mm3 (3.8-10.1) 9.6th/mm3 (3.8-10.1) Red Blood Count 3.44mil/mm3 (4.40-5.80) 3.50mil/mm3 (4.40-5.80) 3.28mil/mm3 (4.40-5.80) Hemoglobin 10.2g/dL (13.8-17.2) 10.4g/dL (13.8-17.2) 9.5g/dL (13.8-17.2) Hematocrit 31.7% (41.0-50.0) 31.8% (41.0-50.0) 29.7% (41.0-50.0) Mean Corpuscular Volume 92.2fL (81-100) 90.9fL (81-100) 90.5fL (81-100) Mean Corpuscular Hemoglobin 29.7pg (27.0-35.0) 29.7pg (27.0-35.0) 29.0pg (27.0-35.0) Mean Corpuscular Hemoglobin Concent 32.2% (32.0-37.0) 32.7% (32.0-37.0) 32.0% (32.0-37.0) Red Cell Distribution Width 15.3% (12.3-15.4) 14.9% (12.3-15.4) 14.9% (12.3-15.4) Platelet Count 208bil/L (150-400) 287bil/L (150-400) 312bil/L (150-400) Neutrophils (%) (Auto) 73.2% (40-74) 77.9% (40-74) 74.0% (40-74) Lymphocytes (%) (Auto) 11.4% (14-46) 9.2% (14-46) 12.4% (14-46) Monocytes (%) (Auto) 12.6% (4-12) 10.9% (4-12) 11.5% (4-12) Eosinophils (%) (Auto) 2.2% (0-5) 1.3% (0-5) 1.6% (0-5) Basophils (%) (Auto) 0.1% (0-3) 0.2% (0-3) 0.1% (0-3) Prothrombin Time 38.9sec (8.1-12.5) 38.7sec (8.1-12.5) 43.1sec (8.1-12.5) Prothromb Time International Ratio 3.54ratio 3.53ratio 3.92ratio Sodium Level 134mEq/L (134-144) 133mEq/L (134-144) 136mEq/L (134-144) Potassium Level 4.8mEq/L (3.5-5.2) 4.7mEq/L (3.5-5.2) 4.4mEq/L (3.5-5.2) Chloride Level 102mEq/L (97-108) 102mEq/L (97-108) 106mEq/L (97-108) Carbon Dioxide Level 19mmol/L (18-29) 18mmol/L (18-29) 19mmol/L (18-29) Blood Urea Nitrogen 53mg/dL (8-27) 50mg/dL (8-27) 52mg/dL (8-27) Creatinine 1.83mg/dL (0.76-1.27) 1.79mg/dL (0.76-1.27) 1.75mg/dL (0.76-1.27) Estimat Glomerular Filtration Rate 39mL/min (>59) 40mL/min (>59) 41mL/min (>59) Glucose Level 348mg/dL (60-99) 273mg/dL (60-99) 247mg/dL (60-99) Calcium Level 7.9mg/dL (8.5-10.1) 8.0mg/dL (8.5-10.1) 7.9mg/dL (8.5-10.1) Procalcitonin 3.58ng/mL (0.00-0.08) 3.22ng/mL (0.00-0.08) X-Rays, CTs and MRIs PROCEDURE: X-RAY RIGHT FOOT COMPLETE, MINIMUM THREE VIEWS ([id number]) INDICATIONS: POST SURGERY ON RIGHT FOOT TECHNIQUE: 3 views of the foot were acquired. COMPARISON: 01/05/2017 FINDINGS: Bones: First and second metatarsals amputations show mild bony resorption at the end of the bony stumps. Margins appear sharp or on the lateral projection. Soft tissues: Postoperative changes of the soft tissues show interval improvement with diminished swelling and artifact. IMPRESSION: Expected postoperative changes with progression since last exam. Dictated by: Olman Sim M.D. on 01/15/2017 at 16:27 Approved by: Olman Sim M.D. on 01/15/2017 at 16:30 CT brain 1. No acute intracranial abnormalities. 2. Cerebral volume loss and chronic microvascular ischemic change Dictated by: Milton Bardales M.D. on 01/03/2017 at 12:54 Chest x-ray IMPRESSION: No acute cardiopulmonary disease. Dictated by: Milton Bardales M.D. on 01/03/2017 at 13:55 Venous duplex IMPRESSION: No deep venous thrombosis in the right lower extremity. Dictated by: Milton Bardales M.D. on 01/03/2017 at 12:40 01/04 PROCEDURE: X-RAY RIGHT FOOT COMPLETE, MINIMUM THREE VIEWS ([id number]) IMPRESSION: Worsening osteomyelitis involving the first metatarsal head with gas within the adjacent soft tissues as well as throughout the dorsal aspect of the soft tissues. Although the gas may be related to recent instrumentation, developing necrotizing fasciitis cannot be excluded and clinical correlation and followup is recommended. Dr. Key given results at 1108 hours on 01/05/2017. Dictated by: Sung VELAZCO Interpreted: Rhona Paige MD on 01/05/2017 at 10:56 01/05 PROCEDURE: X-RAY RIGHT FOOT COMPLETE, MINIMUM THREE VIEWS ([id number]) IMPRESSION: Interval postoperative changes of the right forefoot as described. No radiopaque foreign bodies. Dictated by: Ronal Galindo M.D. on 01/05/2017 at 15:58 01/06 PROCEDURE: US RENAL SONOGRAM 1. Left renal inferior exophytic cyst otherwise normal kidneys. 2. 707 cc prevoid urinary volume and postvoid residual cannot be assessed. Cardiac Echo Impressions Last echo 04/06/16 Interpretation Summary Left ventricular wall thickness is mild-moderately increased. Assessment of diastolic parameters indicates a relaxation abnormality of the left ventricle, consistent with normal filling pressures. The right ventricle is normal in size and function. Pulmonary artery pressures cannot be estimated because of the lack of a measurable TR jet velocity. Both atria are normal in size. There is no significant valvular heart disease. The aortic root is normal size. The aortic arch is normal in size. TTE 01/05/17 The study quality was technically difficult. A contrast injection of Definity was performed to improve assessment of LV function. Left ventricular ejection fraction is estimated to be 50%. Apical hypokinesis is suspected, LVEF is slightly lower on this exam. The right ventricle is normal size. Right ventricular systolic function is mildly reduced. The right ventricular systolic pressure is estimated at 25 mmHg assuming a right atrial pressure of 8 mm Hg. In an off axis view there is an echodensity along the superior aspect of the IAS, this could be an artifact. A V[place] can hlep elucidate this further, or a limited echo to re evaluate the RA may be requested. [place] 01/07/17 The left ventricular ejection fraction is grossly normal. The interatrial septum is intact with no evidence for an atrial septal defect. No evidence of endocarditis. No mass seen in RA, TTE finding was artifactual. Plan Impression 1. Acute kidney injury secondary to ATN. 2. Stage III chronic kidney disease secondary to diabetic nephropathy and hypertensive nephrosclerosis. 3. Resolved hyperkalemia 4. Right foot cellulitis and osteomyelitis status post I&D and wound VAC placement. 5. MSSA bacteremia. 6. Worsening metabolic alkalosis. plan: Discontinue sodium bicarbonate. Continue Lasix, chlorthalidone, Norvasc,and Lisinopril. Increase coreg to 25 mg BID. We will continue to monitor his kidney function and volume status on a daily basis. Repeat UA and postvoid residual. Navdeep Uribe MD Jan 25, 2017 12:14 - Pro calcitonin level remains elevated at 0.20 and sedimentation rate is greater than 140. Type 2 Diabetes with peripheral neuropathy, present on admission, active - The patient had a diabetic foot ulcer, Nephropathy and retinopathy; present on admission , A1c 8.9, - The patient's glucose is in target range with current regimen. - We will continue Lantus, which was increased to 20AM, 30 at night,added 5 units lispro TIDAC + high dose nutritional scale lispro. - We will continue to hold Victoza sq Hypertension, present on admission, stable -We have discontinued Losartan and spironolactone due to hyperkalemia, which has stabilized. -Nephrology was consulted and Dr. Land's input, time and expertise is greatly appreciated. He has added lisinopril 10 mg by mouth daily at bedtime, along with chlorthalidone 25 mg by mouth daily. . -We will continue Amlodipine 10 mg daily, Lasix 20 mg daily, -We have increased Coreg from 12.5 mg daily to 12.5 bid - We will re-check electrolytes in a.m. Altered mental status and Delirium, resolved Patient had decline in mental function after V[place]. Mentation seemed to be declining as patient is unable to respond correctly where he was or what year it was. He also had some slurred speech. It should be restated that prior to admission, patient had fallen and stated he did hit his head on this head board and had his head wedged in between. Head CT at that time showed no acute intracranial abnormalities. - DDx: Included stroke secondary to hemorrhage, medication side effects of versed and also considering reduced clearance of versed due to poor kidney function, encephalitis. - Likely secondary to medication side effects, but given history, ordered stat CT head. - Head CT unremarkable. Will decrease pain medications, cluster nursing care, ask for frequent reorientation and make sure there is daylight in room during days. - In the afternoon of 01/09/17, evaluated patient and his mentation is back to baseline since first seen on 01/04/17. The AMS and delirium was likely medication related as patient was given fentanyl for pain, versed for [place], flexiril for spasms. This happened within a short time period on top of poor kidney function. - The patient's mentation is now back to baseline, however he was quite somnolent today. Shortness of breath, resolved -Patient had increased coughing and shortness of breath 01/08/17. -Chest X-ray showed Bibasilar atelectasis versus aspiration or pneumonia. - Patient has been noted to be aspirating per speech evaluation and should have supervised PO intake. - Patient currently on Zosyn for osteomyelitis which will also treat aspiration pneumonitis - Acapella and Incentive spirometry has been ordered. - Recheck CBC periodically. Acute on chronic kidney injury; present on admission; Resolved - Baseline Cr 1.3-1.7. Due to Hypertensive nephrosclerosis and Diabetic nephropathy - Renal ultrasound showed Pre-void bladder volume is 778 mL. - Patient has Milton as of 01/06/17. Improved BUN and Cr afterwards. - We will continue to avoid nephrotoxic insults, monitor urine output - Fluids discontinued 01/08/17 - As no improvement in renal function we have asked nephrology to see. Dr. Land was kind enough to see the patient and appreciate his time and expertise. We will follow his recommendations. Lisinopril has been added 10 mg by mouth daily at bedtime. Chlorthalidone 25 mg by mouth daily has been added as well as sodium bicarbonate by mouth twice a day. Since then renal function appears to have stabilized. Persistent hyperkalemia, secondary to poor renal function. Resolved - We have given Kayexalate 2 and potassium has normalized. - We will repeat electrolytes in a.m. - We will continue off the spironolactone. - We will avoid any potassium supplements. Patient to avoid orange juice as well. Paroxysmal Atrial fibrillation on Coumadin; present on admission; stable - The patient was monitored on telemetry till 01/09/17. Patient out of A. fib for several days prior. Patient can use to go in and out of atrial fibrillation. - We will continue rate control with Carvedilol - Continue warfarin per pharmacy - Daily INR. Ordered 2 units FFP to reduce INR below 2 prior to I&D. Patient only recieved 1 unit. Held second unit after surgery on 01/05. Severe Sepsis - Resolved Secondary to RLE cellulitis and bacteremia found on admission. Patient on admission had leukocytosis of 24.3, tachycardia and tachypnea. Leukocytosis has been improving daily now down to 13.2. RLE very hot, erythematous and edematous , with fluctuant mass on base of RLE 1st digit. This has been improving throughout his admission with treatment initially on ancef and now on zosyn. Recent cultures in September show MSSA pansensitive. Nasal MRSA swab negative. Blood cultures have also been grown gram positive cocci likely to be staph aureus. - Patient no longer tachycardic or tachypneic. Leukocytosis is down to 12.3. - Appreciate Dr. Key consult and ID consult. - I/D done 01/[address] Key drained approximately 50 cc of pustular discharge. Patient had extensive debridement and amputation of right second toe in OR 01/05. She had further debridement again 01/18/2017. Patient had further bedside debridement today and 01/20/2017. - Discontinued Ancef 01/05/17 - Continued zosyn, start date 01/04/17. Will transition to Ancef + Flagyl 01/[address] Edwards recommendation. Plan is for treatment of antibiotics for 6 weeks for osteomyelitis. Treatment is to continue through February 15. - TTE showed EF of 50%, apical hypokineseis and an echodensity along the superior aspect of the IAS, which could be an artifact. [place] would help elucidate this further. Per conversation with caridiologist, differential includes myxoma, so will proceed with [place] for 01/07. - Follow CBC, BMP -Repeat procalcitonin trended down as above Hyperlipidemia - We will continue Atorvastatin 40 mg daily Acquired hypothyroidism - We will continue Synthroid 75 mcg daily Hypoglycemia, due to noncompliance; present on admission; Resolved - Pt has been without his glucometer; when obtained reading was "very high" likely due to above infection - Patient overdosed on Lantus, taking 2-3 times more than prescribed - Continue to monitor glucose Mild troponin elevation; present on admission; Resolved -Likely due to acute kidney injury -Now wnl Anion gap metabolic acidosis with lactic acidosis; present on admission; Resolved -Anion gap improved from 20 to 12, lactic acid trended to 1.0. - IV fluids were used initially when patient had limited PO intake. Acetaminophen for mild pain when necessary. Bowel regimen Senna and MiraLAX scheduled and PRN. Zofran when necessary for nausea and vomiting. SubQ heparin held for now. SCDs in place. High-risk medications: Warfarin Navdeep Uribe MD Jan 25, 2017 12:14
[2017-01-25 13:27] LABS: APPEARANCE,URINE HAZY (CLEAR,HAZY); COLOR,URINE STRAW (YELLOW)
[2017-01-25 13:28] LABS: OCCULT BLOOD,URINE LARGE (NEGATIVE); UROBILINOGEN,URINE NORMAL (NORMAL)
--- NOTE | 2017-01-25 14:20 | PCM.PHAPRO ---
Progress Warfarin Management: -pt's inr remains therapeutic at 2.92 (high end of normal) -coagulation trends: DFF DFF MH KK RTM SLF -Jan 21-Jan 22-Jan 23-Jan 24-Jan 25-Jan 1.49 1.64 2.07 2.72 2.92 2.92 0.2 0.15 0.43 0.65 0.2 7 MG 7.5 MG 5MG 5MG 5 4 -plan: will give warfarin 4mg this evening Rashida Cruz [facility] Jan 25, 2017 14:20
--- NOTE | 2017-01-25 14:25 | PCM.PNMED ---
Subjective Date of Service Jan 25, 2017 Subjective Patient temperature of 38 overnight. Currently he has been afebrile. Patient denies any fever chills. No nausea vomiting diarrhea. No other new overnight events. Exam Vital Signs Vital Sign - Last Date Time Temp Pulse Resp B/P Pulse Ox O2 Delivery O2 Flow Rate FiO2 01/25/17 10:04 74 01/25/17 09:50 18 152/74 92 Room Air 01/25/17 08:37 36.8 01/25/17 05:27 2.00 Intake and Output 01/24/17 01/24/17 01/25/17 Cumulative From/Thru 15:00 23:00 07:00 01/03/17 11:59 - 01/25/17 06:38 Intake Total 800 ml 720 ml 400 ml 42696 ml Output Total 1050 ml 1200 ml 1450 ml 97356 ml Balance -250 ml -480 ml -1050 ml 39610 ml Intake Oral 800 ml 720 ml 400 ml 01949 ml IV Total 21485 ml TPN/PPN 100 ml Output Urine Total 1050 ml 1200 ml 1450 ml 31467 ml Estimated Blood Loss 30 ml # Voids 1 9 # Bowel Movements 0 0 16 Exam General: Patient is an no apparent distress at this time. He remains more awake and alert today. HEENT: Head is atraumatic and normocephalic. Eyes: Pupils are equally round and reactive to light and accommodation. Extraocular muscles are intact. Sclera are white, anicteric. Subconjunctival mucosa is pink. Ears and nose are unremarkable. Oropharynx: There is no mucosal lesions, there is no thrush, there is no pharyngitis. Neck: Is supple, there are no nodes, or masses or tenderness. Chest: Is clear to auscultation and percussion. There are no rales, rhonchi, wheezes or rubs. Heart: Rate, rhythm is regular. There is no murmur, rub or gallop. Abdomen: Good bowel sounds are present. Abdomen is soft, nontender, no organomegaly or masses were appreciated. Extremities: The right foot- wound VAC in place with no significant changes. The left foot dressing is clean dry and intact. Neurologic: There were no focal neurological deficits. Cranial nerves II through XII are intact. There are no sensory or motor deficits. Patient is more lucid and less somnolent today Psychiatric: Patients mood is calm and he shows no sign of agitation. IVs and Medications Medications Reviewed: Medications were reviewed in detail Lab and Diagnostics Result Diagram: 01/25/1751401/25/17514 Microbiology Specimen: [id number] Collected: 01/03/17 Status: CATRACHITO Warner#: [id number] Received: 01/03/17-1242 Source: BLOOD Sp Desc : AA Subm Dr: Nader Gordon MD Ordered: Comments: Collected by Nurse/Unit? Y/N N Procedure Result Verified Site Microbiology JAYDE CULTURE BLOOD Final 01/06/17-0700 Organism 1 STAPHYLOCOCCUS AUREUS GRAM STAIN RESULT GRAM POSITIVE COCCI ?STAPH BC BOTTLE Isolated from Aerobic Bottle of Set Drawn DATE CALLED: 01/04/17 TIME CALLED: 0631 CALLED BY: SIA FLOOR/DOCTOR: WAQAS Gipson BC READ BACK Y TYPE OF DRAW NURSE COLLLECT TYPE NOT SPECIFIED TIME OF POSITIVITY 0600 GRAM STAIN RESULT GRAM POSITIVE COCCI ?STAPH BC BOTTLE2 Isolated from Anaerobic Bottle of Set Drawn DATE CALLED: 01/04/17 TIME CALLED: 1112 CALLED BY: SIA FLOOR/DOCTOR: BHANU Yarbrough BC READ BACK Y TYPE OF DRAW NURSE COLLECT TYPE NOT INDICATED TIME OF POSITIVITY 1050 STAPHYLOCOCCUS AUREUS Oxacillin Susceptible Penicillin Resistant Staph spp. are Susceptible to Penicillin stable penicillins, Blactam/Blactamase inhibitor combinations, antistaphyloccal cephems, and carbapenems. ISOLATED FROM FOUR OF FOUR BOTTLES COLLECTED 01/03/17. 1. STAPHYLOCOCCUS AUREUS M.I.C Interp --------- ------ * CEFAZOLIN S * CLINDAMYCIN <=0.25 S * ERYTHROMYCIN <=0.25 S CONTINUED ON NEXT PAGE RUN DATE: 01/06/17 [facility] LIVE PAGE 2 RUN TIME: 0700 Specimen Inquiry PHYSICIAN Patient: DARA OLIVAS [id number] (Continued) Specimen: [id number] Collected: 01/03/17-1220 Received: 01/03/17-124 (Continued) Procedure Result Verified Site JAYDE CULTURE BLOOD Final (continued) 01/06/17-699 1. STAPHYLOCOCCUS AUREUS (continued) M.I.C Interp --------- ------ * LINEZOLID 2 S * MOXIFLOXACIN <=0.25 S * OXACILLIN JAYDE 0.5 S * RIFAMPIN <=0.5 S * TETRACYCLINE <=1 S * TRIMETHOPRIM/SULFAMETHOXAZOLE <=10 S * VANCOMYCIN <=0.5 S Name: DARA OLIVAS Age/Sex: 71/M Attend Dr: Luigi Arrieta MD Acct: [id number] Unit: [id number] Status: ADM IN Location: [facility] 1008-1 Re01/03/17 Disch: Specimen: [id number] Collected: 01/05/17-1323 Status: COMP Req#: [id number] Received: 01/05/17 Source: FOOT Sp Desc : Subm Dr: Jeanne Key DPM Ordered: CS & ANAC & Comments: Collected by Nurse/Unit? Y/N Y Comment: RIGHT FOOT, DEEP CULTURE Procedure Result Verified Site Microbiology JAYDE GS (GRAM STAIN) Final 01/05/17 GRAM STAIN RESULT NO POLYS SEEN FEW GRAM POS COCCI JAYDE CULT AEROBIC Final 01/12/17 Organism 1 STAPHYLOCOCCUS AUREUS COLONY COUNT/QUANTITY HEAVY GROWTH Oxacillin Susceptible Penicillin Resistant Staph spp. are Susceptible to Penicillin stable penicillins, Blactam/Blactamase inhibitor combinations, antistaphyloccal cephems, and carbapenems. 1. STAPHYLOCOCCUS AUREUS M.I.C Interp --------- ------ * CEFAZOLIN S * CLINDAMYCIN <=0.25 S * ERYTHROMYCIN <=0.25 S * LINEZOLID 2 S * MOXIFLOXACIN <=0.25 S * OXACILLIN JAYDE 0.5 S * RIFAMPIN <=0.5 S * TETRACYCLINE <=1 S * TRIMETHOPRIM/SULFAMETHOXAZOLE <=10 S * VANCOMYCIN <=0.5 S ANAEROBIC CULTURE Final 01/12/17 No anaerobes isolated Laboratory Tests 72 Hours Test 01/06/17 19:59 01/07/17 03:10 01/08/17 03:00 01/09/17 02:55 Urine Color Yellow (YELLOW) Urine Appearance Hazy (CLEAR,HAZY) Urine pH 5.0 (5.0-8.0) Urine Specific [place] 1.020 (1.003-1.035) Urine Protein 30mg/dL (NEG,TRACE) Urine Glucose (UA) Negativemg/dL (NEGATIVE) Urine Ketones Negativemg/dL (NEGATIVE) Urine Occult Blood Small (NEGATIVE) Urine Nitrite Negative (NEGATIVE) Urine Bilirubin Negative (NEGATIVE) Urine Urobilinogen Normalmg/dL (NORMAL) Urine Leukocyte Esterase Negative (NEGATIVE) Urine RBC 0-2/hpf (0-2) Urine WBC 0-5/hpf (0-5) Urine Epithelial Cells Occasional/hpf (NONE-MOD) Urine Crystals Amorphous urates (NONE Urine Bacteria None/hpf (NONE-FEW) Urine Hyaline Casts None/lpf (NONE) Urine Granular Casts None seen (NONE SEEN) Urine Waxy Casts None seen (NONE SEEN) Urine Red Blood Cell Casts None seen (NONE SEEN) Urine White Blood Cell Casts None seen (NONE SEEN) Urine Mucus None seen (None Seen) Urine Trichomonas None seen (NONE SEEN) Urine Yeast None (NONE SEEN) Urinalysis Comment None Urine Culture Reflexed Not indicated White Blood Count 10.0th/mm3 (3.8-10.1) 10.9th/mm3 (3.8-10.1) 9.6th/mm3 (3.8-10.1) Red Blood Count 3.44mil/mm3 (4.40-5.80) 3.50mil/mm3 (4.40-5.80) 3.28mil/mm3 (4.40-5.80) Hemoglobin 10.2g/dL (13.8-17.2) 10.4g/dL (13.8-17.2) 9.5g/dL (13.8-17.2) Hematocrit 31.7% (41.0-50.0) 31.8% (41.0-50.0) 29.7% (41.0-50.0) Mean Corpuscular Volume 92.2fL (81-100) 90.9fL (81-100) 90.5fL (81-100) Mean Corpuscular Hemoglobin 29.7pg (27.0-35.0) 29.7pg (27.0-35.0) 29.0pg (27.0-35.0) Mean Corpuscular Hemoglobin Concent 32.2% (32.0-37.0) 32.7% (32.0-37.0) 32.0% (32.0-37.0) Red Cell Distribution Width 15.3% (12.3-15.4) 14.9% (12.3-15.4) 14.9% (12.3-15.4) Platelet Count 208bil/L (150-400) 287bil/L (150-400) 312bil/L (150-400) Neutrophils (%) (Auto) 73.2% (40-74) 77.9% (40-74) 74.0% (40-74) Lymphocytes (%) (Auto) 11.4% (14-46) 9.2% (14-46) 12.4% (14-46) Monocytes (%) (Auto) 12.6% (4-12) 10.9% (4-12) 11.5% (4-12) Eosinophils (%) (Auto) 2.2% (0-5) 1.3% (0-5) 1.6% (0-5) Basophils (%) (Auto) 0.1% (0-3) 0.2% (0-3) 0.1% (0-3) Prothrombin Time 38.9sec (8.1-12.5) 38.7sec (8.1-12.5) 43.1sec (8.1-12.5) Prothromb Time International Ratio 3.54ratio 3.53ratio 3.92ratio Sodium Level 134mEq/L (134-144) 133mEq/L (134-144) 136mEq/L (134-144) Potassium Level 4.8mEq/L (3.5-5.2) 4.7mEq/L (3.5-5.2) 4.4mEq/L (3.5-5.2) Chloride Level 102mEq/L (97-108) 102mEq/L (97-108) 106mEq/L (97-108) Carbon Dioxide Level 19mmol/L (18-29) 18mmol/L (18-29) 19mmol/L (18-29) Blood Urea Nitrogen 53mg/dL (8-27) 50mg/dL (8-27) 52mg/dL (8-27) Creatinine 1.83mg/dL (0.76-1.27) 1.79mg/dL (0.76-1.27) 1.75mg/dL (0.76-1.27) Estimat Glomerular Filtration Rate 39mL/min (>59) 40mL/min (>59) 41mL/min (>59) Glucose Level 348mg/dL (60-99) 273mg/dL (60-99) 247mg/dL (60-99) Calcium Level 7.9mg/dL (8.5-10.1) 8.0mg/dL (8.5-10.1) 7.9mg/dL (8.5-10.1) Procalcitonin 3.58ng/mL (0.00-0.08) 3.22ng/mL (0.00-0.08) X-Rays, CTs and MRIs PROCEDURE: X-RAY RIGHT FOOT COMPLETE, MINIMUM THREE VIEWS ([id number]) INDICATIONS: POST SURGERY ON RIGHT FOOT TECHNIQUE: 3 views of the foot were acquired. COMPARISON: 01/05/2017 FINDINGS: Bones: First and second metatarsals amputations show mild bony resorption at the end of the bony stumps. Margins appear sharp or on the lateral projection. Soft tissues: Postoperative changes of the soft tissues show interval improvement with diminished swelling and artifact. IMPRESSION: Expected postoperative changes with progression since last exam. Dictated by: Olman Sim M.D. on 01/15/2017 at 16:27 Approved by: Olman Sim M.D. on 01/15/2017 at 16:30 CT brain 1. No acute intracranial abnormalities. 2. Cerebral volume loss and chronic microvascular ischemic change Dictated by: Milton Bardales M.D. on 01/03/2017 at 12:54 Chest x-ray IMPRESSION: No acute cardiopulmonary disease. Dictated by: Milton Bardales M.D. on 01/03/2017 at 13:55 Venous duplex IMPRESSION: No deep venous thrombosis in the right lower extremity. Dictated by: Milton Bardales M.D. on 01/03/2017 at 12:40 01/04 PROCEDURE: X-RAY RIGHT FOOT COMPLETE, MINIMUM THREE VIEWS ([id number]) IMPRESSION: Worsening osteomyelitis involving the first metatarsal head with gas within the adjacent soft tissues as well as throughout the dorsal aspect of the soft tissues. Although the gas may be related to recent instrumentation, developing necrotizing fasciitis cannot be excluded and clinical correlation and followup is recommended. Dr. Key given results at 1108 hours on 01/05/2017. Dictated by: Sung Tejada [facility] Interpreted: Rhona Paige MD on 01/05/2017 at 10:56 01/05 PROCEDURE: X-RAY RIGHT FOOT COMPLETE, MINIMUM THREE VIEWS ([id number]) IMPRESSION: Interval postoperative changes of the right forefoot as described. No radiopaque foreign bodies. Dictated by: Ronal Galindo M.D. on 01/05/2017 at 15:58 01/06 PROCEDURE: US RENAL SONOGRAM 1. Left renal inferior exophytic cyst otherwise normal kidneys. 2. 707 cc prevoid urinary volume and postvoid residual cannot be assessed. Cardiac Echo Impressions Last echo 04/06/16 Interpretation Summary Left ventricular wall thickness is mild-moderately increased. Assessment of diastolic parameters indicates a relaxation abnormality of the left ventricle, consistent with normal filling pressures. The right ventricle is normal in size and function. Pulmonary artery pressures cannot be estimated because of the lack of a measurable TR jet velocity. Both atria are normal in size. There is no significant valvular heart disease. The aortic root is normal size. The aortic arch is normal in size. TTE 01/05/17 The study quality was technically difficult. A contrast injection of Definity was performed to improve assessment of LV function. Left ventricular ejection fraction is estimated to be 50%. Apical hypokinesis is suspected, LVEF is slightly lower on this exam. The right ventricle is normal size. Right ventricular systolic function is mildly reduced. The right ventricular systolic pressure is estimated at 25 mmHg assuming a right atrial pressure of 8 mm Hg. In an off axis view there is an echodensity along the superior aspect of the IAS, this could be an artifact. A VIR[place]IA can hlep elucidate this further, or a limited echo to re evaluate the RA may be requested. [place] 01/07/17 The left ventricular ejection fraction is grossly normal. The interatrial septum is intact with no evidence for an atrial septal defect. No evidence of endocarditis. No mass seen in RA, TTE finding was artifactual. Assessment & Plan 71-year-old male with recent amputation of his right big toe and insulin- dependent diabetes who presents after being found down, with hypoglycemia and increased erythema of the right lower extremity consistent with cellulitis. Right foot cellulitis with osteomyelitis, present on admission, active -The patient had serial cultures+MSSA. s/p 2nd digit amputation, serial debridement by Dr. Key postop day #8 -Patient is status post debridment of infected soft tissue and bone, right foot , 01/15/17, postop day #7. Dr. Key performed further debridement of 01/19/2017 ( please see her note). -We will continue Zosyn per Dr. Edwards Recommendation, continue to 02/14/17. - I have discussed case with Dr. Edwards and appreciate his time and expertise. We will follow his recommendations. - Pro calcitonin level remains elevated at 0.20 and sedimentation rate is greater than 140. - weekly CBC and CMP followup Type 2 Diabetes with peripheral neuropathy, present on admission, active - The patient had a diabetic foot ulcer, Nephropathy and retinopathy; present on admission , A1c 8.9, - The patient's glucose is in target range with current regimen. - We will continue Lantus, which was increased to 20AM, 30 at night,added 5 units lispro TIDAC + high dose nutritional scale lispro. - We will continue to hold Victoza sq Hypertension, present on admission, stable -We have discontinued Losartan and spironolactone due to hyperkalemia, which has stabilized. -Nephrology was consulted and Dr. Land's input, time and expertise is greatly appreciated. -01/25- Updated Nephrology Recs- Discontinue sodium bicarbonate 2/2 to alkalosis. Continue Lasix, chlorthalidone, Norvasc,and Lisinopril. Increased coreg to 25 mg BID. Continue to monitor his kidney function and volume status on a daily basis. Repeated UA and postvoid residual. Altered mental status and Delirium, resolved Patient had decline in mental function after V[place]. Mentation seemed to be declining as patient is unable to respond correctly where he was or what year it was. He also had some slurred speech. It should be restated that prior to admission, patient had fallen and stated he did hit his head on this head board and had his head wedged in between. Head CT at that time showed no acute intracranial abnormalities. - DDx: Included stroke secondary to hemorrhage, medication side effects of versed and also considering reduced clearance of versed due to poor kidney function, encephalitis. - Likely secondary to medication side effects, but given history, ordered stat CT head. - Head CT unremarkable. Will decrease pain medications, cluster nursing care, ask for frequent reorientation and make sure there is daylight in room during days. - In the afternoon of 01/09/17, evaluated patient and his mentation is back to baseline since first seen on 01/04/17. The AMS and delirium was likely medication related as patient was given fentanyl for pain, versed for [place], flexiril for spasms. This happened within a short time period on top of poor kidney function. - The patient's mentation is now back to baseline, however he was quite somnolent today. Shortness of breath, resolved -Patient had increased coughing and shortness of breath 01/08/17. -Chest X-ray showed Bibasilar atelectasis versus aspiration or pneumonia. - Patient has been noted to be aspirating per speech evaluation and should have supervised PO intake. - Patient currently on Zosyn for osteomyelitis which will also treat aspiration pneumonitis - Acapella and Incentive spirometry has been ordered. - Recheck CBC periodically. Acute on chronic kidney injury; present on admission; Resolved - Baseline Cr 1.3-1.7. Due to Hypertensive nephrosclerosis and Diabetic nephropathy - Renal ultrasound showed Pre-void bladder volume is 778 mL. - Patient has Milton as of 01/06/17. Improved BUN and Cr afterwards. - We will continue to avoid nephrotoxic insults, monitor urine output - Fluids discontinued 01/08/17 - As no improvement in renal function we have asked nephrology to see. Dr. Land was kind enough to see the patient and appreciate his time and expertise. We will follow his recommendations. Lisinopril has been added 10 mg by mouth daily at bedtime. Chlorthalidone 25 mg by mouth daily has been added as well as sodium bicarbonate by mouth twice a day. Since then renal function appears to have stabilized. - 01/25-Updated Nephrology Recs- Discontinue sodium bicarbonate 2/2 to alkalosis. Continue Lasix, chlorthalidone, Norvasc,and Lisinopril. Increased coreg to 25 mg BID. Continue to monitor his kidney function and volume status on a daily basis. Repeated UA and postvoid residual. Persistent hyperkalemia, secondary to poor renal function. Resolved - We have given Kayexalate 2 and potassium has normalized. - We will repeat electrolytes in a.m. - We will continue off the spironolactone. - We will avoid any potassium supplements. Patient to avoid orange juice as well. Paroxysmal Atrial fibrillation on Coumadin; present on admission; stable - The patient was monitored on telemetry till 01/09/17. Patient out of A. fib for several days prior. Patient can use to go in and out of atrial fibrillation. - We will continue rate control with Carvedilol - Continue warfarin per pharmacy - Daily INR. Ordered 2 units FFP to reduce INR below 2 prior to I&D. Patient only recieved 1 unit. Held second unit after surgery on 01/05. Severe Sepsis - Resolved Secondary to RLE cellulitis and bacteremia found on admission. Patient on admission had leukocytosis of 24.3, tachycardia and tachypnea. Leukocytosis has been improving daily now down to 13.2. RLE very hot, erythematous and edematous , with fluctuant mass on base of RLE 1st digit. This has been improving throughout his admission with treatment initially on ancef and now on zosyn. Recent cultures in September show MSSA pansensitive. Nasal MRSA swab negative. Blood cultures have also been grown gram positive cocci likely to be staph aureus. - Patient no longer tachycardic or tachypneic. Leukocytosis is down to 12.3. - Appreciate Dr. Key consult and ID consult. - I/D done 01/[address] Key drained approximately 50 cc of pustular discharge. Patient had extensive debridement and amputation of right second toe in OR 01/05. She had further debridement again 01/18/2017. Patient had further bedside debridement today and 01/20/2017. - Discontinued Ancef 01/05/17 - Continued zosyn, start date 01/04/17. Will transition to Ancef + Flagyl 01/[address] Edwarsd recommendation. Plan is for treatment of antibiotics for 6 weeks for osteomyelitis. Treatment is to continue through February 15. - TTE showed EF of 50%, apical hypokineseis and an echodensity along the superior aspect of the IAS, which could be an artifact. [place] would help elucidate this further. Per conversation with caridiologist, differential includes myxoma, so will proceed with V[place] for 01/07. - Follow CBC, BMP -Repeat procalcitonin trended down as above Hyperlipidemia - We will continue Atorvastatin 40 mg daily Acquired hypothyroidism - We will continue Synthroid 75 mcg daily Hypoglycemia, due to noncompliance; present on admission; Resolved - Pt has been without his glucometer; when obtained reading was "very high" likely due to above infection - Patient overdosed on Lantus, taking 2-3 times more than prescribed - Continue to monitor glucose Mild troponin elevation; present on admission; Resolved -Likely due to acute kidney injury -Now wnl Anion gap metabolic acidosis with lactic acidosis; present on admission; Resolved -Anion gap improved from 20 to 12, lactic acid trended to 1.0. - IV fluids were used initially when patient had limited PO intake. Acetaminophen for mild pain when necessary. Bowel regimen Senna and MiraLAX scheduled and PRN. Zofran when necessary for nausea and vomiting. SubQ heparin held for now. SCDs in place. High-risk medications: Warfarin Disposition: transferred to a long term facility today as insurance approved hyperbaric oxygen and Wound VAC at [facility]. Discharge instructions- -Continue Lasix, chlorthalidone, Norvasc,and Lisinopril. Increased coreg to 25 mg BID. -Zosyn or ertapenem IV through February 15, with weekly CBC -Can see Dr. Edwards in clinic between now and February 15 if needed per SNF physicians. -careful wound followup and consideration for hyperbarics -Continue to monitor his kidney function and volume status on a daily basis. -Repeated UA and postvoid residual GI Prophylaxis: Not indicated VTE Prophylaxis: Theraputic Anticoag with Warfarin VTE Mechanical Devices: Intermittant Pneumatic CD Resuscitation Status: CPR: Attempt Resuscitation Larry Hall MD Jan 25, 2017 14:25
--- NOTE | 2017-01-25 14:26 | PCM.DIMED ---
Discharge Instructions Date of Service Jan 25, 2017 Dates of Hospitalization Jan 03, 2017 at 13:24 Discharge Diagnosis Discharge Diagnosis #Right foot cellulitis with osteomyelitis status post I&D and wound VAC placement #MSSA bacteremia. #Type 2 Diabetes with peripheral neuropathy, diabetic nephropathy #Acute on CKD stage III kidney injury secondary to ATN #Hypertension with hypertensive nephrosclerosis Medication Instructions Additional med instructions -Continue Lasix, chlorthalidone, Norvasc,and Lisinopril. Increased coreg to 25 mg BID. -Zosyn or ertapenem IV through February 15, with weekly CBC Patient Instructions Patient Instructions -Can see Dr. Edwards in clinic between and February 15 if needed per SNF physicians. -careful wound followup and consideration for hyperbarics -Continue to monitor his kidney function and volume status on a daily basis. -Repeated UA and postvoid residual Provider: Anirudh Edwards MD Follow-up in: 3 weeks (Can see Dr. Edwards in clinic between and February 15 if needed per SNF physicians. ) Larry Hall MD Jan 25, 2017 14:26
[2017-01-25] MEDS ORDERED: HYG25 PO (14:36)
[2017-01-25] MEDS ORDERED: CARV25TA2 PO (14:36)
[2017-01-25] MEDS ORDERED: HYDR-4003 PO (14:36)
[2017-01-25] MEDS ORDERED: INSU100V7 SUBQ ×2 (14:36)
[2017-01-25] MEDS ORDERED: INSLIS SUBQ (14:36)
[2017-01-25] MEDS ORDERED: OXYC1TAB24 PO (14:36)
[2017-01-25] MEDS ORDERED: LISI-610 PO (14:36)
--- NOTE | 2017-01-25 15:46 | NUR ---
Dressing change Pt seen at bedside for dressing change right and left diabetic foot ulcers. Post assessment and debridement by Dr Key. Left plantar foot: 0.7x1.8x0.3. pink firm wound bed with small amount of serosang drainage. Left plantar foot wound redressed with alginate to wound bed, gauze and Taped in place covered with Kerlix and Nylon. dressing change every 48-[address] [facility]. Right dorsal foot: 16.0x4.0x0.7. red firm granular tissue present with both tendon and bone exposed at proximal 3rd of wound bed. 325 ml of drainage present in canister at this dressing change. Dressing consists of: wound gel to bone and tendon structures, 1 piece of White foam over bone and tendon and 1 piece of black granufoam placed over all. Vac draped over 2nd toe and plantar foot to achieve seal. Kerlix and nylon over all with vac tubing on outside of Kerlix wrap to protect skin from pressure. Pt is to maintain PWB on right foot up to 50% of patients weight. with FWW and Post op shoe Pt is to maintain WBAT on left foot with post op shoe and FWW. Called [facility] and spoke with Marj and pt wound vac is at facility for use and follow up appt with Dr Key here at [facility] on 02/01/17 at 1400. Pt HBO visits are pending HBO eval and medical clearance for HBO treatments. [facility] and patient will be notified.
--- NOTE | 2017-01-25 16:17 | DRSVH ---
PROCEDURE: X-RAY CHEST, TWO VIEWS ([id number]) INDICATIONS: Hyperbaric chamber evaluation TECHNIQUE: 2 views of the chest were acquired. COMPARISON: [facility], CR, XR PICC LINE PLACE BY NURSE, 01/21/2017, 17:54. [facility], CR, XR CHEST 1VW (PORTABLE), 01/03/2017, 12:55. [facility], CR, XR CHEST 1VW (PORTABLE), 01/08/2017, 10:20. [facility], CR, XR CHEST 2VW, 08/26/2015, 16:09. FINDINGS: Surgical changes and devices: PICC line is stable in position. Lungs and pleura: No pleural effusions or pneumothorax. Increased opacification noted in the posteri or and mesial aspect of the left lung suspicious for pneumonia versus aspiration. Patchy opacity is n oted in the right lung base which could represent atelectasis, pneumonia or aspiration. Mediastinum: Mediastinal contours are normal. Heart size is normal. Bones and chest wall: No suspicious bony abnormalities. Soft tissues appear unremarkable. IMPRESSION: Left basilar opacity suspicious for pneumonia versus aspiration. Dictated by: Liz Casas MD, PhD on 01/25/2017 at 16:14 Approved by: Liz Casas MD, PhD on 01/25/2017 at 16:15
--- NOTE | 2017-01-25 16:31 | NUR ---
Social Work: Discharge D: EMR reviewed. Pt is on day 22 of hospitalization. Per MD, pt is cleared for discharge to [facility] once wound care signs off. Per Property Management Specialist, wound care has signed off and wound vac authorized. Per Property Management Specialist, pt transfer packet to SNF completed and left at RN station for pick-up. Per Property Management Specialist, RN updated on pt transport time of 1700 today to [facility]. Pt updated. MD updated. A: Pt for whom a SNF has been deemed medically necessary P: Pt to transport to [facility] today at 1700. Transfer packet complete and left at RN station. RN, pt, and MD updated. All agreeable to plan. YINA Hill
[2017-01-25 17:00] VITALS: BP 163/81; PULSE 83; RESP 18; O2SAT 93
--- NOTE | 2017-01-25 17:00 | NUR ---
DISCHARGE Patient is alert and oriented. Forgetful. Patient denies pain. He stated that he had pain earlier this morning in his toes but that the Allopurinol was sufficient for pain control. Tolerating liquids PO and his diet well. Denies nausea. No emesis noted. Denies SOB. + bowel sounds and flatus. Senna administered for no BM since the 01/20. Patient did not want to take anything else. Patient is voiding without any problems. Woundvac on his R foot and dressing on his L foot was changed by woundcare services this afternoon. PICC line has brisk blood draw and flushes without any problems. PICC line in place. Woundvac-Clamped is inplace and is intact. Report given to SONYA Crain in [facility]. Discharged to [facility] via a cabulance.
--- NOTE | 2017-01-25 21:03 | PCM.HPHBO ---
History of Present Illness Date of Service: Jan 25, 2017 Chief Complaint: The patient is seen for an HBO evaluation. History of Present Illness: The patient was hospitalized from 01/15/17 to 01/25/17 due to hypoglycemia, multiple false, right lower extremity cellulitis and infected ulcer of the right foot. He was seen by a commercial sales manager Dr. Jeanne Key due to cellulitis with osteomyelitis of the right foot. While in the hospital he had surgical debridement by And the wound VAC was placed on his foot. He also received an antibiotic, Zosyn. Lab Results: Laboratory Tests Test 01/25/17 05:15 01/25/17 12:50 White Blood Count 6.2th/mm3 (3.8-10.1) Red Blood Count 2.77mil/mm3 (4.40-5.80) Hemoglobin 8.1g/dL (13.8-17.2) Hematocrit 26.3% (41.0-50.0) Mean Corpuscular Volume 94.9fL (81-100) Mean Corpuscular Hemoglobin 29.2pg (27.0-35.0) Mean Corpuscular Hemoglobin Concent 30.8% (32.0-37.0) Red Cell Distribution Width 14.9% (12.3-15.4) Platelet Count 211bil/L (150-400) Neutrophils (%) (Auto) 55.5% (40-74) Lymphocytes (%) (Auto) 25.8% (14-46) Monocytes (%) (Auto) 11.1% (4-12) Eosinophils (%) (Auto) 6.9% (0-5) Basophils (%) (Auto) 0.5% (0-3) Prothrombin Time 31.9sec (8.1-12.5) Prothromb Time International Ratio 2.92ratio Sodium Level 142mEq/L (134-144) Potassium Level 4.4mEq/L (3.5-5.2) Chloride Level 103mEq/L (97-108) Carbon Dioxide Level 28mmol/L (18-29) Blood Urea Nitrogen 38mg/dL (8-27) Creatinine 2.06mg/dL (0.76-1.27) Estimat Glomerular Filtration Rate 34mL/min (>59) Glucose Level 155mg/dL (60-99) Calcium Level 8.1mg/dL (8.5-10.1) Magnesium Level 2.1mg/dL (1.6-2.6) Total Bilirubin 0.3mg/dL (0.0-1.2) Aspartate Amino Transf (AST/SGOT) 12U/L (0-50) Alanine Aminotransferase (ALT/SGPT) 5U/L (0-44) Alkaline Phosphatase 59U/L (25-160) Total Protein 5.3g/dL (6.4-8.4) Albumin 2.6g/dL (3.4-5.0) Urine Color Straw (YELLOW) Urine Appearance Hazy (CLEAR,HAZY) Urine pH 6.0 (5.0-8.0) Urine Specific [place] 1.010 (1.003-1.035) Urine Protein Negativemg/dL (NEG,TRACE) Urine Glucose (UA) Negativemg/dL (NEGATIVE) Urine Ketones Negativemg/dL (NEGATIVE) Urine Occult Blood Large (NEGATIVE) Urine Nitrite Negative (NEGATIVE) Urine Bilirubin Negative (NEGATIVE) Urine Urobilinogen Normalmg/dL (NORMAL) Urine Leukocyte Esterase Negative (NEGATIVE) Urine RBC 11-50/hpf (0-2) Urine WBC 0-5/hpf (0-5) Urine Epithelial Cells Occasional/hpf (NONE-MOD) Urine Crystals None seen (NONE SEEN) Urine Bacteria None/hpf (NONE-FEW) Urine Hyaline Casts None/lpf (NONE) Urine Granular Casts None seen (NONE SEEN) Urine Waxy Casts None seen (NONE SEEN) Urine Red Blood Cell Casts None seen (NONE SEEN) Urine White Blood Cell Casts None seen (NONE SEEN) Urine Mucus None seen (None Seen) Urine Trichomonas None seen (NONE SEEN) Urine Yeast None (NONE SEEN) Urinalysis Comment None Urine Culture Reflexed Not indicated Microbiology 01/05/17 Blood Culture - Final, Complete NO GROWTH AFTER 5 DAYS 01/04/17 MRSA (PCR) - Final, Complete 01/05/17 Gram Stain - Final, Complete 01/05/17 Culture & Sensitivity - Final, Complete Staphylococcus Aureus 01/05/17 Anaerobic Culture - Final, Complete No anaerobes isolated Bedside Blood Glucose: 177 Vital Signs: Vital Signs Date Time Temp Pulse Resp B/P Pulse Ox O2 Delivery O2 Flow Rate FiO2 01/25/17 17:00 36.8 83 18 163/81 93 Room Air Pain Pain Occurence: None Pain Location: Wound area Review of Systems General: No complaints of fever, sweats or chills. No significant weight loss or gain. HEENT: No complaints except for he does have cataracts Muscles bones joints: He complains of having gout arthritis, osteoarthritis and rheumatoid arthritis. Also bone infection in his right foot. Respiratory: Patient states he had a slight cough a few months. He is a nonsmoker Psychiatric no complaints of claustrophobia, anxiety or depression. Neurological: ES change in sensation in his lower extremities related to his diabetes. Patient has some change in memory. Bladder and kidney: No complaints Skin patient has a wound right foot. Cardiovascular: Patient arrhythmias and recently was diagnosed with atrial fib and is on warfarin. He has no complaints of chest pain Digestive: No complaints. Medications Home Medications Reviewed: Reviewed and no changes Allopurinol (Allopurinol) 300 Mg Tablet 450 MG PO DAILY (Reported) Last Taken: Unknown Dose on 01/02/17 0900 Amlodipine (Amlodipine) 10 Mg Tablet 10 MG PO DAILY (Reported) Last Taken: Unknown Dose on 01/02/17 0900 Atorvastatin (Lipitor) 40 Mg Tablet 40 MG PO DAILY (Reported) Last Taken: Unknown Dose on 01/01/17 2100 Carvedilol (Carvedilol) 25 Mg Tablet 25 MG PO BID Prescribed by: REMINGTON SANTIAGO MD Cetirizine HCl (Zyrtec) 10 Mg Capsule 10 MG PO DAILY PRN PRN allergies (Reported ) Last Taken: Unknown Dose on Unknown Date & Time Chlorthalidone ( Chlorthalidone) 25 Mg Tablet 25 MG PO DAILY Prescribed by: REMINGTON SANTIAGO MD Cyanocobalamin (Vitamin B-12) (Vitamin B-12) 1,000 Mcg Tab.subl 1,000 MCG SL DAILY (Reported) Last Taken: Unknown Dose on 01/02/17 0900 Cyclobenzaprine (Cyclobenzaprine) 10 Mg Tablet 10 MG PO TID PRN PRN For Spasm Prescribed by: BLU CALDWELL DO Last Taken: Unknown Dose on Unknown Date & Time Diclofenac Gel (Voltaren Gel ) 100 Gm Tube 1 APPLIC TOPICAL DIRECTED PRN PRN For Pain (Reported) Last Taken: Unknown Dose on Unknown Date & Time Furosemide (Lasix) 40 Mg Tablet 20 MG PO DAILY (Reported) Last Taken: Unknown Dose on 01/02/17899 Gabapentin (Gabapentin) 300 Mg Capsule 600 MG PO QAM (Reported) Last Taken: Unknown Dose on 01/02/17899 Hydrocodone-Acetaminophen 5-325 mg (Hydrocodone-Acetaminophen 5-325 mg) 1 Each Tablet 1-2 TABLET PO Q6H PRN PRN For Mild Pain Prescribed by: REMINGTON SANTIAGO MD Insulin Glargine (Lantus U100 Insulin Vial) 100 Unit/Ml Vial 8 UNIT SUBQ MORNING Prescribed by: REMINGTON SANTIAGO MD Insulin Glargine (Lantus U100 Insulin Vial) 100 Unit/Ml Vial 8 UNIT SUBQ HS Prescribed by: REMINGTON SANTIAGO MD Insulin Human Lispro (HumaLOG U100 Insulin Vial) 100 Unit/Ml Unit 5 UNIT SUBQ TIDAC Check blood sugars before meals and at bedtime. Use correction factor only before meals. Blood Sugar Lispro Correction: <151, 0 units; 151-175, 1 unit; 176-200, 2 units; 201-225, 3 units; 226-250, 4 units; 251-275, 5 units; 276-300 , 6 units; 301-325, 7 units; 326-350, 8 units; 351-375, 9 units; 376-400, 10 units; >400, 12 units. Prescribed by: REMINGTON SANTIAGO MD Iron Amino Acid Chelate/B12/FA (Ferractiv Iron 27 mg Formula) 1 Each Capsule 2 EACH PO DAILY (Reported) Last Taken: Unknown Dose on 01/02/17899 Levothyroxine (Levothyroxine) 75 Mcg Tablet 75 MCG PO DAILY (Reported) Last Taken: Unknown Dose on 01/02/17899 Lisinopril (Zestril) 10 Mg Tablet 10 MG PO HS Prescribed by: REMINGTON SANTIAGO MD Meclizine (Bonine) 25 Mg Tab.chew 25 MG PO DAILY (Reported) Last Taken: Unknown Dose on 01/02/17899 Multivitamin/Iron/Folic Acid ( Century Tablet) 1 Each Tablet 1 EACH PO DAILY (Reported) Last Taken: Unknown Dose on 01/02/17899 Polyethylene Glycol 3350 (Miralax) 17 Gm Powd.pack 17 GM PO DAILY PRN PRN For Constipation Prescribed by: BLU CALDWELL DO Last Taken: Unknown Dose on Unknown Date & Time Warfarin Sodium (Warfarin Sodium) 2.5 Mg Tablet 5 MG PO DAILY (Reported) Last Taken: Unknown Dose on 01/01/17 1700 oxyCODONE-Acetaminophen 5-325 mg ( oxyCODONE-Acetaminophen 5-325 mg) 1 Each Tablet 1 TAB PO Q4H PRN PRN For Pain Prescribed by: REMINGTON SANTIAGO MD Discontinued Medications Carvedilol (Carvedilol) 12.5 Mg Tablet 12.5 MG PO DAILY (Reported) Last Taken: Unknown Dose on 01/02/17 0900 Hydrocodone-Acetaminophen 5-325 mg (Hydrocodone-Acetaminophen 5-325 mg) 1 Each Tablet 1 TABLET PO Q4H PRN PRN For Pain Prescribed by: BLU CALDWELL DO Last Taken: Unknown Dose on Unknown Date & Time Insulin Aspart (NovoLOG U100 Insulin Vial) 100 U/Ml U 5-14 UNIT SUBQ TID (Reported) Last Taken: Unknown Dose on Unknown Date & Time Insulin Glargine (Lantus U100 Insulin Vial) 100 Unit/Ml Vial 32 UNIT SUBQ QAM (Reported) Last Taken: Unknown Dose on 01/02/17 0900 Insulin Glargine (Lantus U100 Insulin Vial) 100 Unit/Ml Vial 22 UNIT SUBQ HS (Reported) Liraglutide (Victoza 2-Vitaliy) 0.6 Mg/0.1 Ml Pen.injctr 1.2 MG SUBQ DAILY (Reported ) Last Taken: Unknown Dose on 01/02/17 0900 Losartan Potassium (Cozaar) 25 Mg Tablet 50 MG PO DAILY Prescribed by: BLU CALDWELL DO Last Taken: Unknown Dose on 01/02/17 0900 Spironolactone (Spironolactone) 25 Mg Tablet 12.5 MG PO DAILY Prescribed by: BLU CALDWELL DO Last Taken: Unknown Dose on Unknown Date & Time Allergies Coded Allergies: Pentazocine Lactate (Verified Allergy, Unknown, 09/09/15) vancomycin (Unverified Allergy, Unknown, Hives, 09/09/15) rash and blisters hydrocortisone (Verified Adverse Reaction, Unknown, leg swelling, 11/07/16) Exam Exam General Appearance: Alert, Oriented X3, Cooperative, No Acute Distress HEENT: Atraumatic, Mucous Membr Moist/[place]ck: Within normal limits & unremarkable Respiratory: Other (no shortness of breath however his oxygen saturation has been dropping below 90 at times) Cardiovascular: Other (diagnosis of atrial fib) Skin: Wounds/Lacerations ( IA date) Wound Assessment & Procedure WOUNDS : Wound See note from Dr. Key and Franny Smith's visit: Pt seen at bedside by Dr. Key and Franny Smith for dressing change right and left diabetic foot ulcers. Post assessment and debridement by Dr Key. Left plantar foot: 0.7x1.8x0.3. pink firm wound bed with small amount of serosang drainage. Left plantar foot wound redressed with alginate to wound bed, gauze and Taped in place covered with Kerlix and Nylon. dressing change every 48-72 hrs at [facility]. Right dorsal foot: 16.0x4.0x0.7. red firm granular tissue present with both tendon and bone exposed at proximal 3rd of wound bed. 325 ml of drainage present in canister at this dressing change. Dressing consists of: wound gel to bone and tendon structures, 1 piece of White foam over bone and tendon and 1 piece of black granufoam placed over all. Vac draped over 2nd toe and plantar foot to achieve seal. Kerlix and nylon over all with vac tubing on outside of Kerlix wrap to protect skin from pressure. Pt is to maintain PWB on right foot up to 50% of patients weight. with FWW and Post op shoe Pt is to maintain WBAT on left foot with post op shoe and FWW. Wound Type: Diabetic Ulcer Dressings Dressing consists of: wound gel to the bone and tendon stricture, 1 piece of white foam over bone and tendon and 1 piece of black granufoam placed over all. Vac draped 2 2nd toe and plantar foot to achieve seal. Kerlix and nylon over all with vac tubing on outside of kerlix wrap to protect skin from pressure. Change 2-3 times a week. Wound Assessment Impression: The patient has cellulitis with osteomyelitis of the right foot (M86.9). He has been on antibiotic,Zosyn. On 01/25/17 he will be discharged from hospital and will be at [facility]. The patient has been followed by doctor Jeanne Key and she is recommending HBO treatments for the patient due to his right foot osteomyelitis (M86.9 ) He appears to be a good candidate for HBO treatment and will have an EKG and CXR done prior to treatments. His CXR and EKG will be evaluated. Problems: (1) Foot osteomyelitis, right Status: Acute ICD Code: M86.9 Plan: 1) EKG and CXR done and evaluated 2) Patient will be Treated with 30 HBO treatments at 2 BI.Patient's HBO visits are pending HBO medical clearance. 3) He will continue to see Dr. Key in the wound clinic and has an appt for next 09/04/16 The patient understands and agrees with the plan of care. Follow-up Appointment: Wound Clinic Time Spent: 40 minutes were spent in direct encounter with greater than 50% in counseling. We discussed The benefits and effects of HBO. The patient has received HBO Tx in the past and he understands the benefits, precautions, effects and the commitment. Questions were asking, discussed and answered. copies to: Karlee Kaplan MD, Audrey K ARNP Jan 25, 2017 21:03
--- NOTE | 2017-01-26 07:03 | PCM.DC.MED ---
Discharge Summary Date of Service Jan 26, 2017 Dates of Hospitalization Date of Hospital Admission Jan 03, 2017 at 13:24 Date of Discharge: Jan 25, 2017 Providers: Admitting Physician: Luigi Arrieta MD Primary Care Physician: Karlee Kaplan MD Attending Physician: Stan Doe MD Diagnosis at Time of Discharge Diagnosis at Time of Discharge #Right foot cellulitis with osteomyelitis status post I&D and wound VAC placement #MSSA bacteremia. #Type 2 Diabetes with peripheral neuropathy, diabetic nephropathy #Acute on CKD stage III kidney injury secondary to ATN #Hypertension with hypertensive nephrosclerosis Procedures XRay, CTs & MRIs PROCEDURE: X-RAY RIGHT FOOT COMPLETE, MINIMUM THREE VIEWS ([id number]) INDICATIONS: POST SURGERY ON RIGHT FOOT TECHNIQUE: 3 views of the foot were acquired. COMPARISON: 01/05/2017 FINDINGS: Bones: First and second metatarsals amputations show mild bony resorption at the end of the bony stumps. Margins appear sharp or on the lateral projection. Soft tissues: Postoperative changes of the soft tissues show interval improvement with diminished swelling and artifact. IMPRESSION: Expected postoperative changes with progression since last exam. Dictated by: Olman Sim M.D. on 01/15/2017 at 16:27 Approved by: Olman Sim M.D. on 01/15/2017 at 16:30 CT brain 1. No acute intracranial abnormalities. 2. Cerebral volume loss and chronic microvascular ischemic change Dictated by: Milton Bardales M.D. on 01/03/2017 at 12:54 Chest x-ray IMPRESSION: No acute cardiopulmonary disease. Dictated by: Milton Bardales M.D. on 01/03/2017 at 13:55 Venous duplex IMPRESSION: No deep venous thrombosis in the right lower extremity. Dictated by: Milton Bardales M.D. on 01/03/2017 at 12:40 01/04 PROCEDURE: X-RAY RIGHT FOOT COMPLETE, MINIMUM THREE VIEWS ([id number]) IMPRESSION: Worsening osteomyelitis involving the first metatarsal head with gas within the adjacent soft tissues as well as throughout the dorsal aspect of the soft tissues. Although the gas may be related to recent instrumentation, developing necrotizing fasciitis cannot be excluded and clinical correlation and followup is recommended. Dr. Key given results at 1108 hours on 01/05/2017. Dictated by: Sung VELAZCO Interpreted: Rhona Paige MD on 01/05/2017 at 10:56 01/05 PROCEDURE: X-RAY RIGHT FOOT COMPLETE, MINIMUM THREE VIEWS ([id number]) IMPRESSION: Interval postoperative changes of the right forefoot as described. No radiopaque foreign bodies. Dictated by: Ronal Galindo M.D. on 01/05/2017 at 15:58 01/06 PROCEDURE: US RENAL SONOGRAM 1. Left renal inferior exophytic cyst otherwise normal kidneys. 2. 707 cc prevoid urinary volume and postvoid residual cannot be assessed. Cardiac Echo Impression Last echo 04/06/16 Interpretation Summary Left ventricular wall thickness is mild-moderately increased. Assessment of diastolic parameters indicates a relaxation abnormality of the left ventricle, consistent with normal filling pressures. The right ventricle is normal in size and function. Pulmonary artery pressures cannot be estimated because of the lack of a measurable TR jet velocity. Both atria are normal in size. There is no significant valvular heart disease. The aortic root is normal size. The aortic arch is normal in size. TTE 01/05/17 The study quality was technically difficult. A contrast injection of Definity was performed to improve assessment of LV function. Left ventricular ejection fraction is estimated to be 50%. Apical hypokinesis is suspected, LVEF is slightly lower on this exam. The right ventricle is normal size. Right ventricular systolic function is mildly reduced. The right ventricular systolic pressure is estimated at 25 mmHg assuming a right atrial pressure of 8 mm Hg. In an off axis view there is an echodensity along the superior aspect of the IAS, this could be an artifact. A VIRGINIA can hlep elucidate this further, or a limited echo to re evaluate the RA may be requested. [place] 01/07/17 The left ventricular ejection fraction is grossly normal. The interatrial septum is intact with no evidence for an atrial septal defect. No evidence of endocarditis. No mass seen in RA, TTE finding was artifactual. Brief History The patient was hospitalized from 01/15/17 to 01/25/17 due to hypoglycemia, multiple false, right lower extremity cellulitis and infected ulcer of the right foot. He was seen by a chip bin operator Dr. Jeanne Key due to cellulitis with osteomyelitis of the right foot. While in the hospital he had surgical debridement by And the wound VAC was placed on his foot. He also received an antibiotic, Zosyn. Hospital Course 71-year-old male with recent amputation of his right big toe and insulin- dependent diabetes who presents after being found down, with hypoglycemia and increased erythema of the right lower extremity consistent with cellulitis. Right foot cellulitis with osteomyelitis, present on admission, active -The patient had serial cultures+MSSA. s/p 2nd digit amputation, serial debridement by Dr. Key postop day #8 -Patient is status post debridment of infected soft tissue and bone, right foot , 01/15/17, postop day #7. Dr. Key performed further debridement of 01/19/2017 ( please see her note). -We will continue Zosyn per Dr. Edwards Recommendation, continue to 02/14/17. - I have discussed case with Dr. Edwards and appreciate his time and expertise. We will follow his recommendations. - Pro calcitonin level remains elevated at 0.20 and sedimentation rate is greater than 140. - weekly CBC and CMP followup Type 2 Diabetes with peripheral neuropathy, present on admission, active - The patient had a diabetic foot ulcer, Nephropathy and retinopathy; present on admission , A1c 8.9, - The patient's glucose is in target range with current regimen. - We will continue Lantus, which was increased to 20AM, 30 at night,added 5 units lispro TIDAC + high dose nutritional scale lispro. - We will continue to hold Victoza sq Hypertension, present on admission, stable -We have discontinued Losartan and spironolactone due to hyperkalemia, which has stabilized. -Nephrology was consulted and Dr. Land's input, time and expertise is greatly appreciated. -01/25- Updated Nephrology Recs- Discontinue sodium bicarbonate 2/2 to alkalosis. Continue Lasix, chlorthalidone, Norvasc,and Lisinopril. Increased coreg to 25 mg BID. Continue to monitor his kidney function and volume status on a daily basis. Repeated UA and postvoid residual. Altered mental status and Delirium, resolved Patient had decline in mental function after V[place]. Mentation seemed to be declining as patient is unable to respond correctly where he was or what year it was. He also had some slurred speech. It should be restated that prior to admission, patient had fallen and stated he did hit his head on this head board and had his head wedged in between. Head CT at that time showed no acute intracranial abnormalities. - DDx: Included stroke secondary to hemorrhage, medication side effects of versed and also considering reduced clearance of versed due to poor kidney function, encephalitis. - Likely secondary to medication side effects, but given history, ordered stat CT head. - Head CT unremarkable. Will decrease pain medications, cluster nursing care, ask for frequent reorientation and make sure there is daylight in room during days. - In the afternoon of 01/09/17, evaluated patient and his mentation is back to baseline since first seen on 01/04/17. The AMS and delirium was likely medication related as patient was given fentanyl for pain, versed for [place], flexiril for spasms. This happened within a short time period on top of poor kidney function. - The patient's mentation is now back to baseline, however he was quite somnolent today. Shortness of breath, resolved -Patient had increased coughing and shortness of breath 01/08/17. -Chest X-ray showed Bibasilar atelectasis versus aspiration or pneumonia. - Patient has been noted to be aspirating per speech evaluation and should have supervised PO intake. - Patient currently on Zosyn for osteomyelitis which will also treat aspiration pneumonitis - Acapella and Incentive spirometry has been ordered. - Recheck CBC periodically. Acute on chronic kidney injury; present on admission; Resolved - Baseline Cr 1.3-1.7. Due to Hypertensive nephrosclerosis and Diabetic nephropathy - Renal ultrasound showed Pre-void bladder volume is 778 mL. - Patient has Milton as of 01/06/17. Improved BUN and Cr afterwards. - We will continue to avoid nephrotoxic insults, monitor urine output - Fluids discontinued 01/08/17 - As no improvement in renal function we have asked nephrology to see. Dr. Land was kind enough to see the patient and appreciate his time and expertise. We will follow his recommendations. Lisinopril has been added 10 mg by mouth daily at bedtime. Chlorthalidone 25 mg by mouth daily has been added as well as sodium bicarbonate by mouth twice a day. Since then renal function appears to have stabilized. - 01/25-Updated Nephrology Recs- Discontinue sodium bicarbonate 2/2 to alkalosis. Continue Lasix, chlorthalidone, Norvasc,and Lisinopril. Increased coreg to 25 mg BID. Continue to monitor his kidney function and volume status on a daily basis. Repeated UA and postvoid residual. Persistent hyperkalemia, secondary to poor renal function. Resolved - We have given Kayexalate 2 and potassium has normalized. - We will repeat electrolytes in a.m. - We will continue off the spironolactone. - We will avoid any potassium supplements. Patient to avoid orange juice as well. Paroxysmal Atrial fibrillation on Coumadin; present on admission; stable - The patient was monitored on telemetry till 01/09/17. Patient out of A. fib for several days prior. Patient can use to go in and out of atrial fibrillation. - We will continue rate control with Carvedilol - Continue warfarin per pharmacy - Daily INR. Ordered 2 units FFP to reduce INR below 2 prior to I&D. Patient only recieved 1 unit. Held second unit after surgery on 01/05. Severe Sepsis - Resolved Secondary to RLE cellulitis and bacteremia found on admission. Patient on admission had leukocytosis of 24.3, tachycardia and tachypnea. Leukocytosis has been improving daily now down to 13.2. RLE very hot, erythematous and edematous , with fluctuant mass on base of RLE 1st digit. This has been improving throughout his admission with treatment initially on ancef and now on zosyn. Recent cultures in September show MSSA pansensitive. Nasal MRSA swab negative. Blood cultures have also been grown gram positive cocci likely to be staph aureus. - Patient no longer tachycardic or tachypneic. Leukocytosis is down to 12.3. - Appreciate Dr. Key consult and ID consult. - I/D done 01/[address] Key drained approximately 50 cc of pustular discharge. Patient had extensive debridement and amputation of right second toe in OR 01/05. She had further debridement again 01/18/2017. Patient had further bedside debridement today and 01/20/2017. - Discontinued Ancef 01/05/17 - Continued zosyn, start date 01/04/17. Will transition to Ancef + Flagyl 01/[address] Edwards recommendation. Plan is for treatment of antibiotics for 6 weeks for osteomyelitis. Treatment is to continue through February 15. - TTE showed EF of 50%, apical hypokineseis and an echodensity along the superior aspect of the IAS, which could be an artifact. [place] would help elucidate this further. Per conversation with caridiologist, differential includes myxoma, so will proceed with V[place] for 01/07. - Follow CBC, BMP -Repeat procalcitonin trended down as above Hyperlipidemia - We will continue Atorvastatin 40 mg daily Acquired hypothyroidism - We will continue Synthroid 75 mcg daily Hypoglycemia, due to noncompliance; present on admission; Resolved - Pt has been without his glucometer; when obtained reading was "very high" likely due to above infection - Patient overdosed on Lantus, taking 2-3 times more than prescribed - Continue to monitor glucose Mild troponin elevation; present on admission; Resolved -Likely due to acute kidney injury -Now wnl Anion gap metabolic acidosis with lactic acidosis; present on admission; Resolved -Anion gap improved from 20 to 12, lactic acid trended to 1.0. - IV fluids were used initially when patient had limited PO intake. Acetaminophen for mild pain when necessary. Bowel regimen Senna and MiraLAX scheduled and PRN. Zofran when necessary for nausea and vomiting. SubQ heparin held for now. SCDs in place. High-risk medications: Warfarin Disposition: transferred to a [facility] facility today as insurance approved hyperbaric oxygen and Wound VAC at [facility]. Discharge instructions- -Continue Lasix, chlorthalidone, Norvasc,and Lisinopril. Increased coreg to 25 mg BID. -Zosyn or ertapenem IV through February 15, with weekly CBC -Can see Dr. Edwards in clinic between and February 15 if needed per SNF physicians. -careful wound followup and consideration for hyperbarics -Continue to monitor his kidney function and volume status on a daily basis. -Repeated UA and postvoid residual Exam Vital Signs (Last) Date Time Temp Pulse Resp B/P Pulse Ox O2 Delivery O2 Flow Rate FiO2 01/25/17 17:00 36.8 83 18 163/81 93 Room Air 01/25/17 05:27 2.00 Test 01/03/17 18:15 01/04/17 00:52 01/04/17 03:05 01/15/17 04:48 Hemoglobin A1c 8.9% (4.8-5.6) Troponin T < 0.010ug/L (0.0-0.011) Lactic Acid Level 1.0mmol/L (0.4-2.0) Band Neutrophils % 2% (1-5) Hematology Comments Phosphorus Level 4.0mg/dL (2.5-4.9) Test 01/17/17 04:50 01/18/17 05:00 01/19/17 05:30 01/25/17 05:15 Thyroid Stimulating Hormone (TSH) 6.140uIU/mL (0.450-4.500) Erythrocyte Sedimentation Rate > 140mm/hr (0-30) C-Reactive Protein 3.1mg/dL (0.0-0.5) Procalcitonin 0.20ng/mL (0.00-0.08) Globulin (PEP) 3.0g/dL (2.2-3.9) Albumin/Globulin Ratio 0.6 (0.7-1.7) Dlmur-6-Rinlvagdd 0.4g/dL (0.0-0.4) Volmm-8-Ijtzjjlhy 1.0g/dL (0.4-1.0) Beta Globulins 0.7g/dL (0.7-1.3) Gamma Globulins 0.9g/dL (0.4-1.8) Serum Monoclonal Protein Not observedg/dL Protein Electrophoresis Comment Comment (.) Protein Electrophoresis Interpret Comment (.) Rheumatoid Factor <10.0IU/mL (0.0-13.9) Anti-Nuclear Antibody Screen Negative (Negative) White Blood Count 6.2th/mm3 (3.8-10.1) Red Blood Count 2.77mil/mm3 (4.40-5.80) Hemoglobin 8.1g/dL (13.8-17.2) Hematocrit 26.3% (41.0-50.0) Mean Corpuscular Volume 94.9fL (81-100) Mean Corpuscular Hemoglobin 29.2pg (27.0-35.0) Mean Corpuscular Hemoglobin Concent 30.8% (32.0-37.0) Red Cell Distribution Width 14.9% (12.3-15.4) Platelet Count 211bil/L (150-400) Neutrophils (%) (Auto) 55.5% (40-74) Lymphocytes (%) (Auto) 25.8% (14-46) Monocytes (%) (Auto) 11.1% (4-12) Eosinophils (%) (Auto) 6.9% (0-5) Basophils (%) (Auto) 0.5% (0-3) Prothrombin Time 31.9sec (8.1-12.5) Prothromb Time International Ratio 2.92ratio Sodium Level 142mEq/L (134-144) Potassium Level 4.4mEq/L (3.5-5.2) Chloride Level 103mEq/L (97-108) Carbon Dioxide Level 28mmol/L (18-29) Blood Urea Nitrogen 38mg/dL (8-27) Creatinine 2.06mg/dL (0.76-1.27) Estimat Glomerular Filtration Rate 34mL/min (>59) Glucose Level 155mg/dL (60-99) Calcium Level 8.1mg/dL (8.5-10.1) Magnesium Level 2.1mg/dL (1.6-2.6) Total Bilirubin 0.3mg/dL (0.0-1.2) Aspartate Amino Transf (AST/SGOT) 12U/L (0-50) Alanine Aminotransferase (ALT/SGPT) 5U/L (0-44) Alkaline Phosphatase 59U/L (25-160) Total Protein 5.3g/dL (6.4-8.4) Albumin 2.6g/dL (3.4-5.0) Test 01/25/17 12:50 Urine Color Straw (YELLOW) Urine Appearance Hazy (CLEAR,HAZY) Urine pH 6.0 (5.0-8.0) Urine Specific Carlisle 1.010 (1.003-1.035) Urine Protein Negativemg/dL (NEG,TRACE) Urine Glucose (UA) Negativemg/dL (NEGATIVE) Urine Ketones Negativemg/dL (NEGATIVE) Urine Occult Blood Large (NEGATIVE) Urine Nitrite Negative (NEGATIVE) Urine Bilirubin Negative (NEGATIVE) Urine Urobilinogen Normalmg/dL (NORMAL) Urine Leukocyte Esterase Negative (NEGATIVE) Urine RBC 11-50/hpf (0-2) Urine WBC 0-5/hpf (0-5) Urine Epithelial Cells Occasional/hpf (NONE-MOD) Urine Crystals None seen (NONE SEEN) Urine Bacteria None/hpf (NONE-FEW) Urine Hyaline Casts None/lpf (NONE) Urine Granular Casts None seen (NONE SEEN) Urine Waxy Casts None seen (NONE SEEN) Urine Red Blood Cell Casts None seen (NONE SEEN) Urine White Blood Cell Casts None seen (NONE SEEN) Urine Mucus None seen (None Seen) Urine Trichomonas None seen (NONE SEEN) Urine Yeast None (NONE SEEN) Urinalysis Comment None Urine Culture Reflexed Not indicated Microbiology Results Specimen: [id number] Collected: 01/03/17 Status: COMP Req#: [id number] Received: 01/03/17124 Source: BLOOD Sp Desc : AA Magdalena Dr: Nader Gordon MD Ordered: Comments: Collected by Nurse/Unit? Y/N N Procedure Result Verified Site Microbiology JAYDE CULTURE BLOOD Final 01/06/17-0700 Organism 1 STAPHYLOCOCCUS AUREUS GRAM STAIN RESULT GRAM POSITIVE COCCI ?STAPH BC BOTTLE Isolated from Aerobic Bottle of Set Drawn DATE CALLED: 01/04/17 TIME CALLED: 06 CALLED BY: SIA FLOOR/DOCTOR: WAQAS Gipson BC READ BACK Y TYPE OF DRAW NURSE COLLLECT TYPE NOT SPECIFIED TIME OF POSITIVITY 0600 GRAM STAIN RESULT GRAM POSITIVE COCCI ?STAPH BC BOTTLE2 Isolated from Anaerobic Bottle of Set Drawn DATE CALLED: 01/04/17 TIME CALLED: 1112 CALLED BY: SIA FLOOR/DOCTOR: BHANU Yarbrough BC READ BACK Y TYPE OF DRAW NURSE COLLECT TYPE NOT INDICATED TIME OF POSITIVITY 1050 STAPHYLOCOCCUS AUREUS Oxacillin Susceptible Penicillin Resistant Staph spp. are Susceptible to Penicillin stable penicillins, Blactam/Blactamase inhibitor combinations, antistaphyloccal cephems, and carbapenems. ISOLATED FROM FOUR OF FOUR BOTTLES COLLECTED 01/03/17. 1. STAPHYLOCOCCUS AUREUS M.I.C Interp --------- ------ * CEFAZOLIN S * CLINDAMYCIN <=0.25 S * ERYTHROMYCIN <=0.25 S CONTINUED ON NEXT PAGE RUN DATE: 01/06/17 [facility] LIVE PAGE 2 RUN TIME: 0700 Specimen Inquiry PHYSICIAN Patient: DARA OLIVAS [id number] (Continued) Specimen: [id number] Collected: 01/03/17-1220 Received: 01/03/17-124 (Continued) Procedure Result Verified Site JAYDE CULTURE BLOOD Final (continued) 01/06/17-699 1. STAPHYLOCOCCUS AUREUS (continued) M.I.C Interp --------- ------ * LINEZOLID 2 S * MOXIFLOXACIN <=0.25 S * OXACILLIN JAYDE 0.5 S * RIFAMPIN <=0.5 S * TETRACYCLINE <=1 S * TRIMETHOPRIM/SULFAMETHOXAZOLE <=10 S * VANCOMYCIN <=0.5 S Name: DARA OLIVAS Age/Sex: 71/M Attend Dr: Luigi Arrieta MD Acct: [id number] Unit: [id number] Status: ADM IN Location: [facility] 1008-1 Re01/03/17 Disch: Specimen: [id number] Collected: 01/05/17-1323 Status: CATRACHITO Req#: [id number] Received: 01/05/17 Source: FOOT Sp Desc : Subm Dr: Jeanne Key DPM Ordered: CS & ANAC & GS Comments: Collected by Nurse/Unit? Y/N Y Comment: RIGHT FOOT, DEEP CULTURE Procedure Result Verified Site Microbiology JAYDE GS (GRAM STAIN) Final 01/05/17 GRAM STAIN RESULT NO POLYS SEEN FEW GRAM POS COCCI JAYDE CULT AEROBIC Final 01/12/17 Organism 1 STAPHYLOCOCCUS AUREUS COLONY COUNT/QUANTITY HEAVY GROWTH Oxacillin Susceptible Penicillin Resistant Staph spp. are Susceptible to Penicillin stable penicillins, Blactam/Blactamase inhibitor combinations, antistaphyloccal cephems, and carbapenems. 1. STAPHYLOCOCCUS AUREUS M.I.C Interp --------- ------ * CEFAZOLIN S * CLINDAMYCIN <=0.25 S * ERYTHROMYCIN <=0.25 S * LINEZOLID 2 S * MOXIFLOXACIN <=0.25 S * OXACILLIN JAYDE 0.5 S * RIFAMPIN <=0.5 S * TETRACYCLINE <=1 S * TRIMETHOPRIM/SULFAMETHOXAZOLE <=10 S * VANCOMYCIN <=0.5 S ANAEROBIC CULTURE Final 01/12/17 No anaerobes isolated Laboratory Tests 72 Hours Test 01/06/17 19:59 01/07/17 03:10 01/08/17 03:00 01/09/17 02:55 Urine Color Yellow (YELLOW) Urine Appearance Hazy (CLEAR,HAZY) Urine pH 5.0 (5.0-8.0) Urine Specific Carlisle 1.020 (1.003-1.035) Urine Protein 30mg/dL (NEG,TRACE) Urine Glucose (UA) Negativemg/dL (NEGATIVE) Urine Ketones Negativemg/dL (NEGATIVE) Urine Occult Blood Small (NEGATIVE) Urine Nitrite Negative (NEGATIVE) Urine Bilirubin Negative (NEGATIVE) Urine Urobilinogen Normalmg/dL (NORMAL) Urine Leukocyte Esterase Negative (NEGATIVE) Urine RBC 0-2/hpf (0-2) Urine WBC 0-5/hpf (0-5) Urine Epithelial Cells Occasional/hpf (NONE-MOD) Urine Crystals Amorphous urates (NONE Urine Bacteria None/hpf (NONE-FEW) Urine Hyaline Casts None/lpf (NONE) Urine Granular Casts None seen (NONE SEEN) Urine Waxy Casts None seen (NONE SEEN) Urine Red Blood Cell Casts None seen (NONE SEEN) Urine White Blood Cell Casts None seen (NONE SEEN) Urine Mucus None seen (None Seen) Urine Trichomonas None seen (NONE SEEN) Urine Yeast None (NONE SEEN) Urinalysis Comment None Urine Culture Reflexed Not indicated White Blood Count 10.0th/mm3 (3.8-10.1) 10.9th/mm3 (3.8-10.1) 9.6th/mm3 (3.8-10.1) Red Blood Count 3.44mil/mm3 (4.40-5.80) 3.50mil/mm3 (4.40-5.80) 3.28mil/mm3 (4.40-5.80) Hemoglobin 10.2g/dL (13.8-17.2) 10.4g/dL (13.8-17.2) 9.5g/dL (13.8-17.2) Hematocrit 31.7% (41.0-50.0) 31.8% (41.0-50.0) 29.7% (41.0-50.0) Mean Corpuscular Volume 92.2fL (81-100) 90.9fL (81-100) 90.5fL (81-100) Mean Corpuscular Hemoglobin 29.7pg (27.0-35.0) 29.7pg (27.0-35.0) 29.0pg (27.0-35.0) Mean Corpuscular Hemoglobin Concent 32.2% (32.0-37.0) 32.7% (32.0-37.0) 32.0% (32.0-37.0) Red Cell Distribution Width 15.3% (12.3-15.4) 14.9% (12.3-15.4) 14.9% (12.3-15.4) Platelet Count 208bil/L (150-400) 287bil/L (150-400) 312bil/L (150-400) Neutrophils (%) (Auto) 73.2% (40-74) 77.9% (40-74) 74.0% (40-74) Lymphocytes (%) (Auto) 11.4% (14-46) 9.2% (14-46) 12.4% (14-46) Monocytes (%) (Auto) 12.6% (4-12) 10.9% (4-12) 11.5% (4-12) Eosinophils (%) (Auto) 2.2% (0-5) 1.3% (0-5) 1.6% (0-5) Basophils (%) (Auto) 0.1% (0-3) 0.2% (0-3) 0.1% (0-3) Prothrombin Time 38.9sec (8.1-12.5) 38.7sec (8.1-12.5) 43.1sec (8.1-12.5) Prothromb Time International Ratio 3.54ratio 3.53ratio 3.92ratio Sodium Level 134mEq/L (134-144) 133mEq/L (134-144) 136mEq/L (134-144) Potassium Level 4.8mEq/L (3.5-5.2) 4.7mEq/L (3.5-5.2) 4.4mEq/L (3.5-5.2) Chloride Level 102mEq/L (97-108) 102mEq/L (97-108) 106mEq/L (97-108) Carbon Dioxide Level 19mmol/L (18-29) 18mmol/L (18-29) 19mmol/L (18-29) Blood Urea Nitrogen 53mg/dL (8-27) 50mg/dL (8-27) 52mg/dL (8-27) Creatinine 1.83mg/dL (0.76-1.27) 1.79mg/dL (0.76-1.27) 1.75mg/dL (0.76-1.27) Estimat Glomerular Filtration Rate 39mL/min (>59) 40mL/min (>59) 41mL/min (>59) Glucose Level 348mg/dL (60-99) 273mg/dL (60-99) 247mg/dL (60-99) Calcium Level 7.9mg/dL (8.5-10.1) 8.0mg/dL (8.5-10.1) 7.9mg/dL (8.5-10.1) Procalcitonin 3.58ng/mL (0.00-0.08) 3.22ng/mL (0.00-0.08) Discharge Medications Discharge Medications Allopurinol (Allopurinol) 300 Mg Tablet 450 MG PO DAILY (Reported) Amlodipine (Amlodipine) 10 Mg Tablet 10 MG PO DAILY (Reported) Atorvastatin (Lipitor) 40 Mg Tablet 40 MG PO DAILY (Reported) Carvedilol (Carvedilol) 25 Mg Tablet 25 MG PO BID Prescribed by: REMINGTON HALL MD Chlorthalidone (Chlorthalidone) 25 Mg Tablet 25 MG PO DAILY Prescribed by: REMINGTON HALL MD Cyanocobalamin (Vitamin B-12) (Vitamin B-12) 1,000 Mcg Tab.subl 1,000 MCG SL DAILY (Reported) Furosemide (Lasix) 40 Mg Tablet 20 MG PO DAILY (Reported) Gabapentin (Gabapentin) 300 Mg Capsule 600 MG PO QAM (Reported) Insulin Glargine (Lantus U100 Insulin Vial) 100 Unit/Ml Vial 8 UNIT SUBQ MORNING Prescribed by: REMINGTON HALL MD Insulin Glargine (Lantus U100 Insulin Vial) 100 Unit/Ml Vial 8 UNIT SUBQ HS Prescribed by: REMINGTON HALL MD Insulin Human Lispro (HumaLOG U100 Insulin Vial) 100 Unit/Ml Unit 5 UNIT SUBQ TIDAC Check blood sugars before meals and at bedtime. Use correction factor only before meals. Blood Sugar Lispro Correction: <151, 0 units; 151-175, 1 unit; 176-200, 2 units; 201-225, 3 units; 226-250, 4 units; 251-275, 5 units; 276-300 , 6 units; 301-325, 7 units; 326-350, 8 units; 351-375, 9 units; 376-400, 10 units; >400, 12 units. Prescribed by: REMINGTON HALL MD Iron Amino Acid Chelate/B12/FA (Ferractiv Iron 27 mg Formula) 1 Each Capsule 2 EACH PO DAILY (Reported) Levothyroxine (Levothyroxine) 75 Mcg Tablet 75 MCG PO DAILY (Reported) Lisinopril (Zestril) 10 Mg Tablet 10 MG PO HS Prescribed by: REMINGTON HALL MD Meclizine (Bonine) 25 Mg Tab.chew 25 MG PO DAILY (Reported) Multivitamin/Iron/Folic Acid (Century Tablet) 1 Each Tablet 1 EACH PO DAILY ( Reported) Warfarin Sodium (Warfarin Sodium) 2.5 Mg Tablet 5 MG PO DAILY (Reported) As needed Cetirizine HCl (Zyrtec) 10 Mg Capsule 10 MG PO DAILY PRN PRN allergies (Reported ) Cyclobenzaprine (Cyclobenzaprine) 10 Mg Tablet 10 MG PO TID PRN PRN For Spasm Prescribed by: BLU CALDWELL DO Diclofenac Gel (Voltaren Gel) 100 Gm Tube 1 APPLIC TOPICAL DIRECTED PRN PRN For Pain (Reported) Hydrocodone-Acetaminophen 5-325 mg (Hydrocodone-Acetaminophen 5-325 mg) 1 Each Tablet 1-2 TABLET PO Q6H PRN PRN For Mild Pain Prescribed by: REMINGTON HALL MD Polyethylene Glycol 3350 (Miralax) 17 Gm Powd.pack 17 GM PO DAILY PRN PRN For Constipation Prescribed by: BLU CALDWELL DO oxyCODONE-Acetaminophen 5-325 mg (oxyCODONE-Acetaminophen 5-325 mg) 1 Each Tablet 1 TAB PO Q4H PRN PRN For Pain Prescribed by: REMINGTON HALL MD Additional med instructions -Continue Lasix, chlorthalidone, Norvasc,and Lisinopril. Increased coreg to 25 mg BID. -Zosyn or ertapenem IV through February 15, with weekly CBC Followup Plan Patient Instructions -Can see Dr. Edwards in clinic between and February 15 if needed per SNF physicians. -careful wound followup and consideration for hyperbarics -Continue to monitor his kidney function and volume status on a daily basis. -Repeated UA and postvoid residual Provider: Anirudh Edwards MD Follow-up in: 3 weeks (Can see Dr. Edwards in clinic between and February 15 if needed per SNF physicians. ) Remington Hall MD Jan 26, 2017 07:03
== END 2017-01-25 17:00 | DRG 853 ==
LOC: SED 11:53 → EDBD 11:53 → PCC 13:24 → OSC 01-11 20:57
PROVIDERS: ADMIT Internal Medicine; ATTEND Internal Medicine
PROC: 0QBN0ZZ Excision of Right Metatarsal, Open Approach (ICD-10-PCS; 2017-01-05)
PROC: 0JBQ0ZZ Excision of Right Foot Subcutaneous Tissue and Fascia, Open Approach (ICD-10-PCS; 2017-01-05)
PROC: 30233K1 Transfusion of Nonautologous Frozen Plasma into Peripheral Vein, Percutaneous Approach (ICD-10-PCS; 2017-01-05)
PROC: 0Y6R0Z0 Detachment at Right 2nd Toe, Complete, Open Approach (ICD-10-PCS; principal; 2017-01-05 12:00)
PROC: B24BZZ4 Ultrasonography of Heart with Aorta, Transesophageal (ICD-10-PCS; 2017-01-07)
PROC: 0JBQ0ZZ Excision of Right Foot Subcutaneous Tissue and Fascia, Open Approach (ICD-10-PCS; 2017-01-08)
PROC: 0LBV0ZZ Excision of Right Foot Tendon, Open Approach (ICD-10-PCS; 2017-01-12)
PROC: 0QBL0ZZ Excision of Right Tarsal, Open Approach (ICD-10-PCS; 2017-01-15)
DX: A41.01 Sepsis due to Methicillin susceptible Staphylococcus aureus (principal); N17.0 Acute kidney failure with tubular necrosis; L03.115 Cellulitis of right lower limb; E87.2 Acidosis; M86.171 Other acute osteomyelitis, right ankle and foot; E11.649 Type 2 diabetes mellitus with hypoglycemia without coma; I25.10 Atherosclerotic heart disease of native coronary artery without angina pectoris; Z79.01 Long term (current) use of anticoagulants; Z95.820 Peripheral vascular angioplasty status with implants and grafts; T38.3X1A Poisoning by insulin and oral hypoglycemic [antidiabetic] drugs, accidental (unintentional), initial encounter; E11.21 Type 2 diabetes mellitus with diabetic nephropathy; E11.42 Type 2 diabetes mellitus with diabetic polyneuropathy; E11.621 Type 2 diabetes mellitus with foot ulcer; I48.0 Paroxysmal atrial fibrillation; E78.5 Hyperlipidemia, unspecified; E03.9 Hypothyroidism, unspecified; E11.3299 Type 2 diabetes mellitus with mild nonproliferative diabetic retinopathy without macular edema, unspecified eye; L97.519 Non-pressure chronic ulcer of other part of right foot with unspecified severity; Z79.4 Long term (current) use of insulin; R65.20 Severe sepsis without septic shock; R41.82 Altered mental status, unspecified; B95.61 Methicillin susceptible Staphylococcus aureus infection as the cause of diseases classified elsewhere; I13.10 Hypertensive heart and chronic kidney disease without heart failure, with stage 1 through stage 4 chronic kidney disease, or unspecified chronic kidney disease; N18.3 Chronic kidney disease, stage 3 (moderate); E87.5 Hyperkalemia

== ENCOUNTER → 2017-03-26 | Day surgery (SDC) | payer OTHER ==
--- NOTE | 2017-03-19 12:21 | PCM.ANEPRE ---
Anesthesia Pre-Op Review Reason for Review: multi hosp admissions last few mos, co morbids Additional Comments Recent admissions for pneumonia in the setting of diastolic HF,CKD, and diabetes with neuropathy and long standing osteo of the foot. Now for STKG. Previous surgeries have been done under local. However, with anticipated large STSG, this may not be possible (did discuss with Dr Key encouraging discontiuation of coumadin in time to allow spinal if desired). He has documented resolution of PNA more than 1 month from scheduled date of surgery. While he has >2% risk of cardiac complication on risk factors, he has >4METS, per Dr. Key, when he is not limited by his foot osteo. His last A1C is 7.8, and Dr. Key accepts this as likely, the best he will be able to do. Therefore, I conceed that he is high risk, but feel that he is as optimized as he is likely to be. Should he present with concerning pulmonary or cardiac symptoms, as he seems prone to do, then cancellation of the day of surgery is certainly indicated. However at this time, I see no reason to delay, especially in the setting that not grafting his foot places him at increased risk of infection. Carloz Olivia Chart Reviewed by: Carloz Glez MD Mar 19, 2017 12:21
[~2017-03-26] VITALS: Ht 188 cm; Wt 88.0 kg
[~2017-03-26] MED LIST changes: +ACET325T51 PO; +Atropine 0.4 mg/mL Inj IVPUSH PRN; +BISA10SU61 RC; -CARV12.52 PO; +CARV25TA2 PO; -CYCL10TA9 PO; +CeFAZolin Inj 2 GM in IV Premix 1 EACH IV ONE; -DICL100G8 TOPICAL; +EPHEDrine Sulfate 50 mg/mL Inj IVPUSH PRN; -GABA-502 PO; +GABA600T2 PO; +HYDROmorphone 1 mg/mL Inj IVPUSH PRN; +INSLIS SUBQ; -INSU100C8 SUBQ; +IPRA3AMP IH; -IRON1CAP3 PO; +Insulin LISPRO 300 Unit/3 mL Inj ONE; -LIRA0.6P SUBQ; -LOSA25TA2 PO; -LOSA25TA21 PO; +Labetalol 5 mg/mL 20 mL Inj IV PRN; +Lactated Ringer's 1,000 ML IV SCH; +Lactated Ringer's 500 ML IV PRN; +Lidocaine 2%-Epi 1:100,000 20 mL Inj SUBQ ONE; +MAGN400O4 PO; -MECL-114 PO; +NA P133E23 RC; +Ondansetron 2 mg/mL 2 mL Inj IVPUSH PRN; +Phenylephrine 10,000 mCg/mL Inj IVPUSH PRN; +Propofol 10,000 mCg/mL 20 mL Inj ONE; +SENN-133 PO; -SPIR25TA3 PO; -WARF2.5T82 PO; +WARF2TAB7 PO; +[UNRECOGNIZED DRUG - CODE] PO; +fentaNYL-PF 50 mCg/mL 2 mL Inj IVPUSH PRN; +fentaNYL-PF 50 mCg/mL 2 mL Inj ONE
[2017-03-26] MEDS: Lactated Ringer's 1,000 ML IV SCH ×2 (06:46→10:22)
--- NOTE | 2017-03-26 07:15 | PCM.HPANE ---
Patient Data Surgeon Admitting Provider: Attending Provider:Jeanne Key DPM Primary Care Physician:Jean-Paul Greene DO Other Provider:Robert Moran Anesthesia Reason for Visit Diabetic Ulcer Right Foot Ht/WT & BMI Height (Feet): 5 Height (Inches): 8 Weight (Kilograms): 95 Body Mass Index 31.00 Allergies Coded Allergies: Pentazocine Lactate (Verified Allergy, Unknown, 02/09/17) vancomycin (Unverified Allergy, Unknown, Hives, 02/09/17) rash and blisters hydrocortisone (Verified Adverse Reaction, Unknown, leg swelling, 02/09/17) Past Anesthesia History Anesthesia History: Denies:: Abnormal Airway, Anesthesia Reactions, Difficult Intubation, Fam Anesthesia Reaction, Fam Malignant Hypertherm, Malignant Hyperthermia Diabetes History Hx Diabetes?: Yes (last Hgb A1c- 7.8 02/09/17) Type of Diabetes: Type II Glycemic Control: Insulin Dependent MRSA MRSA: No (MSSA ) Medications Blood Thinner: Aspirin, Coumadin Hypertension Medication: Yes Home Meds Incl Beta Anette: Yes Active Scripts Warfarin Sodium 2 Mg Tablet5 Mg PO DAILY #30 TABLET Ref 0 Follow up with PCP or Coumadin clinic forINR check and warfarin (Coumadin) dose adjustment Prov:Derick Link MD 02/16/17 Carvedilol 25 Mg Vhloyx85 Mg PO BID #60 TABLET Prov:Larry Hall MD 01/25/17 Reported Medications Acetaminophen 325 Mg Oslixj311 Mg PO Q4H PRN For Pain Ref 0 02/09/17 Hydrocodone-Acetaminophen 5-325 mg 1 Each Tablet1-2 Tablet PO q6 hours PRN For Pain Ref 0 02/09/17 Ipratropium/Albuterol Sulfate (Iprat-Albut 0.5-3(2.5) mg/3 mL Inhalant Soln)3 Ml Ampul.neb3 Ml IH q2 hours PRN For Shortness of Breath Ref 0 02/09/17 Na Phos,M-B/Na Phos,Di-Ba (Fleet Enema)133 Ml Zmums838 Ml RC DAILY PRN For Constipation 02/09/17 Bisacodyl (Dulcolax Rectal)10 Mg Supp.rect10 Mg RC DAILY PRN For Constipation 30 Days Ref 0 02/09/17 Magnesium Hydroxide (Milk of Magnesia)400 Mg/5 Ml Oral.susp30 Ml PO DAILY PRN For Constipation 02/09/17 Ipratropium/Albuterol Sulfate (Iprat-Albut 0.5-3(2.5) mg/3 mL Inhalant Soln)3 Ml Ampul.neb3 Ml IH q4 hours Ref 0 02/09/17 Insulin Human Lispro (HumaLOG U100 Insulin Vial)100 Unit/Ml Unit0-10 Units SUBQ TIDWM #1 VIAL Ref 0 Check blood sugars before meals and at bedtime. Use correction factor only before meals. Blood Sugar Lispro Correction: <151, 0 units; 151-175, 1 unit; 176-200, 2 units; 201-225, 3 units; 226-250, 4 units; 251-275, 5 units; 276-300, 6 units; 301-325, 7 units; 326-350, 8 units; 351-375, 9 units; 376-400, 10 units; >400, 12 units. 02/09/17 Saliva Substitution Combo No.9 (Biotene)1,000 Ml Mouthwash1 Dose PO TID 02/09/17 Insulin Glargine (Lantus U100 Insulin Vial)100 Unit/Ml Vial8 Unit SUBQ BID #1 VIAL Ref 0 02/09/17 Sennosides (Senna)8.6 Mg Tablet8.6 Mg PO DAILY 02/09/17 Polyethylene Glycol 3350 (Miralax)17 Gm Powd.pack17 Gm PO DAILY 02/09/17 Gabapentin 600 Mg Sercry259 Mg PO DAILY Ref 0 02/09/17 Cyanocobalamin (Vitamin B-12) (Vitamin B-12)1,000 Mcg Tab.subl1,000 Mcg SL DAILY 11/07/16 Cetirizine HCl (Zyrtec)10 Mg Bccobvy03 Mg PO DAILY PRN allergies #30 CAPSULE Ref 0 07/17/15 Furosemide (Lasix)40 Mg Lmucod36 Mg PO DAILY 30 Days Ref 0 07/17/15 Levothyroxine 75 Mcg Njnsbu72 Mcg PO DAILY Ref 0 07/17/15 Multivitamin/Iron/Folic Acid (Century Tablet)1 Each Tablet1 Each PO DAILY 07/17/15 Atorvastatin (Lipitor)40 Mg Lhqmtp52 Mg PO DAILY Ref 0 07/17/15 Amlodipine 10 Mg Gmljkp33 Mg PO DAILY Ref 0 07/17/15 Allopurinol 300 Mg Qwsuba393 Mg PO DAILY Ref 0 07/17/15 History History of ENT Problems?: Yes HEENT History: Positive for:: Cataracts (left eye cataract; right eye cataract removed) Sinus Problem (Seasonal grass allergies) Denies:: Abnormal Airway Difficult Intubation Dysphagia Denture Type: None Teeth Condition: Within Normal Limits Hx of Heart Problems?: Yes Cardiovascular History: Positive for:: Congestive Heart Failure (recent admission 02/2017) Hypertension Irregular Heartbeat (remote history noted in a recovery post foot surgery,per patient) Denies:: Cardiac Surgery Chest Pain Edema Heart Murmur Pacemaker Thrombophlebitis Hx of Respiratory Problem?: Yes Respiratory History: Denies:: Asthma COPD Chest Surgery Dyspnea Emphysema Hemoptysis Oxygen Administration Pneumonia Tuberculosis Use of C-PAP Machine Other Resp Pertinent History: admission 02/2017 chronic respiratory failure, moderate effusions with atelectasis Hx Neurologic Problems?: Yes Neurological History: Positive for:: CVA (HX 3-4months ago had difficulty speaking - MRI small infarction - no TX) Dizziness (more balance issues due to neuropathy and a weak Left Knee) Denies:: Alzheimer's Disease Dementia Headaches Multiple Sclerosis Parkinson's Disease Seizures Hx of GI Problems?: Yes Hx of Problems?: No Genitourinary History: Denies:: HX of Hemodialysis Kidney Stones Urinary Tract Infection HX of Peritoneal Dialysis: No Male Hx: Denies:: Prostate Problems Scrotal Mass Testicular Surgery Skin History: Positive for:: History Skin Disorders? 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 ) Psycho Social History: Denies:: Anxiety Bipolar Disorder Hx Depression Suicide Attempt Hx Surgeries?: Yes (Right rotator cuff/both knee arthroscopy and amputation of Right Hallux) Hx Any Other Health Problems?: Yes Other History: Positive for:: Hospitalization Denies:: Cancer Endocrine Disease Thyroid Disease History Blood Transfusions: Denies:: Blood Transfuse Reaction Blood Transfusions Hx Diabetes: Yes (last Hgb A1c- 7.8 8/1/17) Hx Alcohol Use: NoHx Substance Use: No Smoking Status: Never Smoker Have You Smoked inLast 12 mo: No Stop/Bang P-Blood Pressure: treated: Yes B- Body Mass Index > 35 kg/m2: No A- Age over 50: Yes N- Neck Large Circumference: No G- Gender Male: Yes Risk Assessment Category Category 1A: Patient has history of documented sleep apnea, and HAS NOT received any narcotic, sedative or anesthesia administration during this stay. Category 1B: Patient has history of documented sleep apnea, and HAS received any narcotic , sedative or anesthesia administration during this stay Category 2: Patient has SUSPECTED Obstructive Sleep Apnea, and HAS received any narcotic , sedative or anesthesia administration during this stay. Category 3: Patient has SUSPECTED Obstructive Sleep Apnea and HAS NOT received narcotic, sedative or anesthesia administration during this stay. Category 4: Outpatient in Procedural Areas with known sleep apnea or who screen positive for High Risk via the STOP/BANG questionnaire. Exam Exam General Appearance: Alert, Oriented X3, Cooperative HEENT/AIRWAY: MP 2, Neck Movement (FROM, heavy big roland), Mouth Opening (wnl) Lungs: Clear to Auscultation Heart: Exam Unremarkable Meds/Labs/Diagnostics Admission Meds Current Medications Lactated Ringer's (Lr) 1,000 ml @ 120 mls/hr Q8H20M IV Last administered on t 06:46; Start 03/26/17 at 05:00; Stop 03/26/17 at 13:19 Plan Impression Patient chart reviewed, patient interviewed and anesthestic plan with risks, benefits, and alternatives discussed, and informed consent obtained. NPO per Anesth. Guidelines: Yes ASA Physical Status: ASA3 Severe Disease Anesthetic Plan: GA Bene/Risks/Altern/Consents: Yes HP Complete Prior to Induction: Yes Yung Nguyen MD Mar 26, 2017 07:15
[2017-03-26 07:26] VITALS: BP 152/61; PULSE 58; RESP 16; O2SAT 98
[2017-03-26 07:39] LABS: INR 1.06 ratio
[2017-03-26 11:50] VITALS: BP 141/56; PULSE 57; RESP 10; O2SAT 97
[2017-03-26 11:55] VITALS: BP 150/60; PULSE 56; RESP 12; O2SAT 96
[2017-03-26 12:00] VITALS: BP 140/74; PULSE 53; RESP 14; O2SAT 98
[2017-03-26 12:24] VITALS: BP 143/62; PULSE 55; RESP 16; O2SAT 99
--- NOTE | 2017-03-26 12:30 | PCM.ANEP1 ---
Post Anesthesia PACU Phase 1 Assessment Vital Signs Vital Signs Date Time Temp Pulse Resp B/P Pulse Ox O2 Delivery O2 Flow Rate FiO2 03/26/17 12:24 55 16 143/62 99 Room Air 03/26/17 12:00 53 14 140/74 98 Room Air 03/26/17 11:55 56 12 150/60 96 Room Air 03/26/17 11:50 36.5 57 10 141/56 97 Room Air 03/26/17 07:26 36.7 58 16 152/61 98 Room Air Anesthetic Administered: GA Level of Alertness: Awake, talking MICHELLE's with Equal Strength: Yes Pain: No Nausea or Vomiting: No CV Function & Hydration Stable: Yes Airway Device: Lungs: Normal Air Movement PACU Phase 2 Assessment Complications: No Follow up Care: No Patient Instructions Provided: N/A Yung Nguyen MD Mar 26, 2017 12:30
[2017-03-26 12:47] VITALS: BP 141/67; PULSE 57; RESP 18; O2SAT 98
--- NOTE | 2017-03-26 16:30 | NUR ---
Wound Care Patient seen in OR room 3 after split thickness skingraft application by Dr Jeanne Key for application of NPWT over dorsal right foot. Black foam and continuous therapy at 100 mmhg were applied directly over graft field. A good seal was attained, leg and foot then wrapped with kerlix and coban from toes to knee. Graft harvest site was covered with a bioclusive dressing with inferior edge slit then covered with abd pad and wrapped with kerlix. This dressing can be reinforced for drainage as needed, NPWT to remain in place until follow up at the wound center with Dr Key next week. Dorsal toe ulceration at 2nd toe of right foot was dressed with bacitracin ointment and gauze and tape, this can be changed daily by SNF staff.
--- NOTE | 2017-03-27 04:47 | OP ---
[address] [address] OPERATIVE REPORT PATIENT: DARA OLIVAS : 1945 MR#: [id number] ADMIT: 03/26/2017 JOB ID: [id number] DATE OF SURGERY: 03/26/2017 SURGEON: Jeanne Key DPM. MOVER HELPER SURGEON: 1. William Tovar MD. 2. Craig Conn MS4. PREOPERATIVE DIAGNOSIS(ES): Diabetic ulceration right dorsal midfoot and right third toe. POSTOPERATIVE DIAGNOSIS(ES): Diabetic ulceration right dorsal midfoot and right third toe. PROCEDURE: Split thickness skin graft from right thigh to right dorsal midfoot ulcer. ANESTHESIA: General. DESCRIPTION OF PROCEDURE: The patient is brought into the operating room and placed in the supine position on the operating room table. After general anesthesia was administered, the right leg was prepped and draped in usual sterile technique. Attention was then directed to the ulceration on the dorsal midfoot of the right foot and the nonviable and fibrotic tissue was sharply excised through skin edges through healthy subcutaneous tissue using a curette. It was noted that the ulceration measured approximately 13 cm x 3.5 cm. The bone of the second metatarsal was exposed within the wound base and the area exposed, measured approximately 1.3 cm x 1 cm. The bone was hard in nature. Using a curette two samples of bone was taken. One was sent for culture and sensitivity and to pathology for gross and microscopic exam. A saline soaked gauze was then placed over the wound. The dermatome was set to 05/1000 of an inch. Using a dermatome three strips of skin partial thickness was removed, totaling 10 cm x 4 cm. The piece of skin was then meshed using a 3:1 mesher. The graft site was covered with lidocaine 2% with epinephrine 1:100,000. The graft was then arranged so that the entire wound bed was covered and the graft was secured in place using 5-0 nylon. The excess skin graft was then replaced on the thigh wound. The graft site was then dressed using Tegaderm, ABD pad and Kerlix. Attention was then directed to the dorsal aspect of the 3rd right toe. Using a rongeur the nonviable and fibrotic tissue was sharply excised through skin edges to healthy subcutaneous tissue. There was a minimal amount of bleeding. Hemostasis was achieved with pressure. The area was then dressed using bacitracin, 2 x 2 gauze, and paper tape. A wound VAC was applied to the dorsal aspect of the right midfoot area using black foam and the wound VAC was set at 100 mm of continuous mercury. The VAC was placed by Harish Lynn PT CWS and Rebecca Singleton RN CWS. The patient tolerated the procedure and anesthesia well, left the recovery room with vital signs stable and vascular status intact to the right lower leg. The patient will be discharged back to [facility] and will follow up with Dr. Key next week.
--- NOTE | 2017-03-29 16:43 | PATH ---
SURGICAL PATHOLOGY Attending Physician:Jeanne Key DPM CASE STATUS: Signed Out PATIENT NAME: DARA OLIVAS PID: [id number] : 1945 DATE COLLECTED:03/26/2017 21:55 SPECIMEN: Bone, Curettage CLINICAL HISTORY: DIABETIC ULCER - RIGHT FOOT 1). RIGHT FOOT WOUND-BONE FINAL DIAGNOSIS: 1.RIGHT FOOT WOUND BONE, DEBRIDEMENT: - FRAGMENTS OF DEVITALIZED AND REMODELING BONE. - SCATTERED FIBRINOPURULENT EXUDATE AND GRANULATION TISSUE. - NO EVIDENCE OF MALIGNANCY. ICD10 E13.622 GROSS DESCRIPTION: The specimen is received in one formalin filled container labeled with the patient's name, sublabeled "right foot wound bone" and consists of a 0.4 x 0.4 x 0.3 CM portion of tissue and or bone which is entirely submitted in one cassette. The specimen will be placed in decal for softening. 03/26/2017DC MICRO DESCRIPTION: See diagnosis. ICD-9 CODES: CPT CODES: 47401, 51151 Electronically Signed Out All Negrete MD [facility] [address], [place] [address] Technical component performed at [facility], [address] [place] [address] Ave[address], [place], [address]
== END | disposition home or self-care (01) ==
LOC: SAS 06:36
PROVIDERS: ATTEND Podiatrist
DX: E11.621 Type 2 diabetes mellitus with foot ulcer (principal); L97.414 Non-pressure chronic ulcer of right heel and midfoot with necrosis of bone; L97.514 Non-pressure chronic ulcer of other part of right foot with necrosis of bone; E11.21 Type 2 diabetes mellitus with diabetic nephropathy; E11.22 Type 2 diabetes mellitus with diabetic chronic kidney disease; I12.9 Hypertensive chronic kidney disease with stage 1 through stage 4 chronic kidney disease, or unspecified chronic kidney disease; I48.0 Paroxysmal atrial fibrillation; I50.9 Heart failure, unspecified; E78.5 Hyperlipidemia, unspecified; M19.90 Unspecified osteoarthritis, unspecified site; E03.9 Hypothyroidism, unspecified; N18.9 Chronic kidney disease, unspecified; Z79.4 Long term (current) use of insulin; Z79.01 Long term (current) use of anticoagulants
CPT/HCPCS: 15100; 36415; 85610; 87070; 87075; 87205; J0690; J1815; J2704; J3010; J7120